=== PATIENT | male | born 1935 | race Caucasian/White ===

== ENCOUNTER 2017-04-04 20:48 | Emergency (ER) | payer MEDICARE, OTHER ==
[2017-04-04] MEDS ORDERED: ACETAMINOPHEN TAB 325 MG TAB PO STA (21:28)
--- NOTE | 2017-04-04 21:28 | ED ---
Lower Extremity Injury HPI - General Chief Complaint: Extremity Injury, Lower Stated Complaint: Back/Groin Pain Time Seen by Provider: 04/04/17 20:51 Source: patient Mode of arrival: EMS Limitations: no limitations - History of Present Illness Initial Comments: Shouldn't is an 81-year-old man presenting to be evaluated for 2 days of right hip/groin pain. The patient indicates the right groin area and states that it came on yesterday in the morning. He noticed it when he was trying to walk around the house. The pain hurts mainly when he tries to lift his right leg. If he is sitting still, particularly when he is lying on on the stretcher he has no pain. He indicates the pain is moderate when he does try to move his right leg. He is declining analgesics at the moment. The patient furthermore denies any weakness, numbness of the leg. He has not had fever or chills, change in urination or bowel movements. No abdominal pain. He has had some recent sciatic pain over the past month but states that this is definitely different. MD Complaint: hip injury Onset/Timin -: days(s) Injury: Hip: Right Type of Injury: unknown Place: home Severity: moderate Improves With: rest Worsens With: movement - Related Data Home Medications Medication Instructions Recorded Confirmed Carvedilol 25 mg PO BID 06/19/15 04/04/17 Ferrous Sulfate [Iron (65 MG 325 mg PO DAILY 06/19/15 04/04/17 Elemental)] Morphine Sulfate ER [Ms Contin] 60 mg PO BID 06/19/15 04/04/17 oxyCODONE HCL 15 mg PO TID 06/19/15 04/04/17 Spironolactone [Aldactone] 25 mg PO DAILY 02/03/16 04/04/17 Multivitamins, Thera [Multivitamin 1 tab PO DAILY 04/13/16 04/04/17 (formulary)] Stool Softner 1 tab PO DAILY 04/16/16 04/04/17 Warfarin [Coumadin] 7.5 mg PO MOTUWETHFRSA 04/16/16 04/04/17 Lisinopril [Zestril] 10 mg PO BID 04/23/16 04/04/17 ALPRAZolam [Xanax] 0.5 mg PO HS 07/28/16 04/04/17 Citalopram Hydrobromide [CeleXA] 10 mg PO DAILY 07/28/16 04/04/17 LORazepam [Ativan] 0.5 mg PO HS 07/28/16 04/04/17 Pantoprazole [Protonix] 40 mg PO QAM 07/28/16 04/04/17 Pravastatin Sodium [Pravachol] 20 mg PO HS 07/28/16 04/04/17 Sucralfate [Carafate] 1 gm PO BID-W/MEALS 07/28/16 04/04/17 Ubidecarenone [Co Q-10] 200 mg PO DAILY 07/28/16 04/04/17 traZODone HCL 100 mg PO HS 07/28/16 04/04/17 Previous Rx's Medication Instructions Recorded Furosemide [Lasix] 40 mg PO DAILY #30 tab 06/21/15 Ibuprofen [Motrin] 600 mg PO Q8HR PRN #20 tab 04/04/17 Allergies Allergy/AdvReac Type Severity Reaction Status Date / Time No Known Allergies Allergy Verified 07/28/16 13:25 Review of Systems ROS Statement: Those systems with pertinent positive or pertinent negative responses have been documented in the HPI. ROS Other: All systems not noted in ROS Statement are negative. Constitutional: Denies: fever, chills, weakness Respiratory: Denies: cough, dyspnea Cardiovascular: Denies: chest pain Gastrointestinal: Denies: abdominal pain, diarrhea, constipation Genitourinary: Denies: dysuria, hematuria, testicular pain Musculoskeletal: Reports: as per HPI, back pain, myalgia (Regular) Skin: Denies: rash, lesions Neurological: Denies: headache, weakness, numbness, paresthesias Past Medical History Past Medical History: Coronary Artery Disease (CAD), Chest Pain / Angina, Heart Failure, Deep Vein Thrombosis (DVT), Hyperlipidemia, Hypertension, Myocardial Infarction (NH), Prostate Disorder Additional Past Medical History / Comment(s): hx PROSTATE CANCER, DVT left leg 2006, Last Myocardial Infarction Date:: 2005? History of Any Multi-Drug Resistant Organisms: None Reported Past Surgical History: Appendectomy, Cardiac Valve Replacement, Cholecystectomy , Heart Catheterization, Heart Catheterization With Stent, Hernia Repair, Pacemaker, Prostate Surgery Additional Past Surgical History / Comment(s): aortic valve replacement, bilateral cataracts removal, penile implant x2 Past Anesthesia/Blood Transfusion Reactions: Previous Problems w/ Anesthesia Additional Past Anesthesia/Blood Transfusion Reaction / Comment(s): "one time BP dropped too low" Date of Last Stent Placement:: 2005 Type of Cardiac Device: Permanent Pacemaker Device Placement Date:: approx 12 yrs ago Past Psychological History: Anxiety Smoking Status: Former smoker - Past Family History Brother(s) Family Medical History: Cancer Sister(s) Family Medical History: Cancer Father Family Medical History: Cancer Additional Family Medical History / Comment(s): HEART PROLEMS AND VASUCLAR PROBLEMS HAD CABG Mother Family Medical History: Myocardial Infarction (NH) Additional Family Medical History / Comment(s): HAD OPEN HEART SX. General Exam Limitations: no limitations General appearance: alert, in no apparent distress Respiratory exam: Present: normal lung sounds bilaterally. Absent: respiratory distress, wheezes, rales, rhonchi Cardiovascular Exam: Present: regular rate, normal rhythm, normal heart sounds. Absent: systolic murmur, diastolic murmur, rubs, gallop GI/Abdominal exam: Present: soft. Absent: distended, tenderness, guarding, rebound Extremities exam: Present: normal inspection, full ROM, normal capillary refill , other (Patient has tenderness to the adductor muscles in the right groin when he attempts to flex the right hip or adduct the right leg. Otherwise no tenderness.). Absent: pedal edema, calf tenderness Back exam: Present: normal inspection. Absent: CVA tenderness (R), CVA tenderness (L) Neurological exam: Present: alert. Absent: motor sensory deficit Skin exam: Present: warm, dry, intact, normal color. Absent: rash Course Vital Signs 04/04/17 04/04/17 20:54 23:23 Temperature 101.5 F H 99.8 F H Pulse Rate 60 89 Respiratory 20 18 Rate Blood Pressure 129/61 145/85 O2 Sat by Pulse 92 L 98 Oximetry Medical Decision Making - Medical Decision Making 81-year-old man presents with right groin pain consistent on the history and physical with a right groin strain. Triage is found to have fever though he has not had symptoms of infection. Patient chest x-ray and urine negative. Discussed further testing to find etiology of fever but patient is declining blood draw. Patient will return if there is any worsening or if there is no improvement. Examination of the patient's right groin and hip does not reveal any evidence of infectious etiology there. Discussed appropriate follow-up and return parameters. - Lab Data Lab Results 04/04/17 Range/Units 21:39 Urine Color Yellow Urine Appearance Clear (Clear) Urine pH 6.5 (5.0-8.0) Ur Specific [place] 1.010 (1.001-1.035) Urine Protein Trace H (Negative) Urine Glucose (UA) Negative (Negative) Urine Ketones Negative (Negative) Urine Blood Negative (Negative) Urine Nitrite Negative (Negative) Urine Bilirubin Negative (Negative) Urine Urobilinogen <2.0 (<2.0) mg/dL Ur Leukocyte Esterase Negative (Negative) Disposition Clinical Impression: Groin strain Disposition: HOME SELF-CARE Condition: Fair Instructions: Groin Strain (ED) Prescriptions: Ibuprofen [Motrin] 600 mg PO Q8HR PRN #20 tab PRN Reason: Pain Referrals: Brayden Lundberg MD [Primary Care Provider] - 1-2 days
[2017-04-04 21:52] LABS: Appearance,Urine Clear (Clear); Bilirubin,Urine Negative (Negative); Glucose,Urine (UA) Negative (Negative); Ketones,Urine Negative (Negative); Leukocyte Esterase,Urine Negative (Negative); Nitrite,Urine Negative (Negative); PH, Urine 6.5 (5.0-8.0); Protein,Urine Trace (Negative); UA Billing (MACRO vs. MICRO) CHEM; Urobilinogen,Urine <2.0 mg/dL (<2.0)
--- NOTE | 2017-04-04 22:33 | XR ---
EXAM: XR Right Hip With Pelvis When Performed, 2 or 3 Views CLINICAL HISTORY: Reason: Pain TECHNIQUE: Two or three views of the right hip, with pelvis when performed. COMPARISON: No relevant prior studies available. FINDINGS: Bones/joints: No evidence of acute fracture or dislocation. Mild/moderate narrowing of both femoroacetabular joints with bony productive changes consistent with osteoarthropathy. Soft tissues: Surgical clips are seen within the pelvis; correlate with patient's surgical history. Moderate/severe atherosclerotic vascular calcifications involving bilateral femoral arteries and their branches. IMPRESSION: No radiographic evidence of acute osseous injury. Mild/moderate osteoarthropathy, as above.
--- NOTE | 2017-04-04 22:39 | XR ---
EXAM: XR Chest, 2 Views CLINICAL HISTORY: Reason: fever TECHNIQUE: Frontal and lateral views of the chest. COMPARISON: 04/28/2016 FINDINGS: Lungs: Bilateral perihilar infiltrates, as seen on prior study, suggesting mild CHF. Hyperinflation of both lungs suggesting COPD. Pleural space: Unremarkable. No pneumothorax. Heart: Heart remains mildly enlarged. Aortic and mitral valve replacement suggested; correlate with patient's surgical history. Left sided pacemaker is again seen with lead tip overlying the right ventricle. Mediastinum: Unchanged. Bones/joints: Median sternotomy wires are again present. IMPRESSION: Mild CHF, slight interval worsening since prior study suggested. Evidence of COPD. Heart remains mildly enlarged.
[2017-04-04] MEDS ORDERED: IBUPROFEN 600 MG TAB PO STA (22:51)
[2017-04-04 23:24] VITALS: BP 145/85; PULSE 89; RESP 18; TEMP 99.8
== END 2017-04-04 23:24 | disposition home or self-care (01) ==
LOC: EC 20:48
DX: S76.911A Strain of unspecified muscles, fascia and tendons at thigh level, right thigh, initial encounter (principal); F41.9 Anxiety disorder, unspecified; I11.0 Hypertensive heart disease with heart failure; I50.9 Heart failure, unspecified; I25.10 Atherosclerotic heart disease of native coronary artery without angina pectoris; I25.2 Old myocardial infarction; E78.5 Hyperlipidemia, unspecified; Z85.46 Personal history of malignant neoplasm of prostate; Z87.891 Personal history of nicotine dependence; Z86.718 Personal history of other venous thrombosis and embolism; Z79.01 Long term (current) use of anticoagulants; Z79.891 Long term (current) use of opiate analgesic; Z79.899 Other long term (current) drug therapy; X50.1XXA Overexertion from prolonged static or awkward postures, initial encounter
CPT/HCPCS: 71020; 73502; 81003; 99284

== ENCOUNTER 2017-11-19 23:25 | Inpatient (IN) | payer MEDICARE ==
[2017-11-19] MEDS ORDERED: IPRATROPIUM-ALBUTEROL 3 ML NEB INHALATION STA (23:52)
[2017-11-19] MEDS ORDERED: methylPREDNISolone SOD SUCCI 125 MG/2 ML VIAL IV STA (23:52)
--- NOTE | 2017-11-20 00:11 | ED ---
General Adult HPI - General Source: patient, RN notes reviewed Mode of arrival: ambulatory Limitations: no limitations <Darwin Bill - Last Filed: 11/20/17 02:24> <Mainor Saba - Last Filed: 11/20/17 02:34> - General Chief complaint: Upper Respiratory Infection Stated complaint: SOB Time Seen by Provider: 11/19/17 23:45 - History of Present Illness Initial comments: Patient's an 81-year-old male presented to the emergency room today with a chief complaint of increased shortness of breath. She does admit that he was seen at [facility] diagnosed with a pneumonia. He was started on antibiotics. States was not getting any better at home. He states he worries and felt that he was not improving so he came here to the emergency room tonight. He does admit that he started one dose of the antibiotic. Patient omits that he uses oxygen at home as needed has felt increased shortness breath. He denies any other complaints or symptoms. Patient denies any recent fever, chills, chest pain, back pain, abdominal pain, nausea or vomiting, numbness or tingling, dysuria or hematuria, constipation or diarrhea, headaches or visual changes, or any other complaints. (Darwin Bill) - Related Data Home Medications Medication Instructions Recorded Confirmed Carvedilol 25 mg PO BID 06/19/15 06/26/17 Ferrous Sulfate [Iron (65 MG 325 mg PO DAILY 06/19/15 06/26/17 Elemental)] Morphine Sulfate ER [Ms Contin] 60 mg PO BID 06/19/15 06/26/17 oxyCODONE HCL 15 mg PO TID 06/19/15 06/26/17 Spironolactone [Aldactone] 25 mg PO DAILY 02/03/16 06/26/17 Multivitamins, Thera [Multivitamin 1 tab PO DAILY 04/13/16 06/26/17 (formulary)] Warfarin [Coumadin] 7.5 mg PO MOTUWETHFRSA 04/16/16 06/26/17 Lisinopril [Zestril] 2.5 mg PO BID 04/23/16 06/26/17 ALPRAZolam [Xanax] 0.5 mg PO HS 07/28/16 06/26/17 Citalopram Hydrobromide [CeleXA] 10 mg PO DAILY 07/28/16 06/26/17 LORazepam [Ativan] 0.5 mg PO HS 07/28/16 06/26/17 Pantoprazole [Protonix] 40 mg PO QAM 07/28/16 06/26/17 Pravastatin Sodium [Pravachol] 20 mg PO HS 07/28/16 06/26/17 Sucralfate [Carafate] 1 gm PO BID-W/MEALS 07/28/16 06/26/17 Ubidecarenone [Co Q-10] 200 mg PO DAILY 07/28/16 06/26/17 traZODone HCL 100 mg PO HS 07/28/16 06/26/17 Previous Rx's Medication Instructions Recorded Furosemide [Lasix] 40 mg PO DAILY #30 tab 06/21/15 Ibuprofen [Motrin] 600 mg PO Q8HR PRN #20 tab 04/04/17 Allergies Allergy/AdvReac Type Severity Reaction Status Date / Time No Known Allergies Allergy Verified 11/19/17 23:30 Review of Systems ROS Other: All systems not noted in ROS Statement are negative. <Darwin Bill - Last Filed: 11/20/17 02:24> ROS Other: All systems not noted in ROS Statement are negative. <Mainor Saba - Last Filed: 11/20/17 02:34> ROS Statement: Those systems with pertinent positive or pertinent negative responses have been documented in the HPI. Past Medical History Past Medical History: Coronary Artery Disease (CAD), Chest Pain / Angina, Heart Failure, Deep Vein Thrombosis (DVT), Hyperlipidemia, Hypertension, Myocardial Infarction (MD), Prostate Disorder Additional Past Medical History / Comment(s): hx PROSTATE CANCER, DVT left leg 2006, sepsis, pleural effusions Last Myocardial Infarction Date:: 2005? History of Any Multi-Drug Resistant Organisms: None Reported Past Surgical History: Appendectomy, Cardiac Valve Replacement, Cholecystectomy , Heart Catheterization, Heart Catheterization With Stent, Hernia Repair, Pacemaker, Prostate Surgery Additional Past Surgical History / Comment(s): aortic valve replacement, bilateral cataracts removal, penile implant x2, thoracentesis Past Anesthesia/Blood Transfusion Reactions: Previous Problems w/ Anesthesia Additional Past Anesthesia/Blood Transfusion Reaction / Comment(s): "one time BP dropped too low" Date of Last Stent Placement:: 2005 Type of Cardiac Device: Permanent Pacemaker Device Placement Date:: approx 12 yrs ago Past Psychological History: Anxiety Smoking Status: Former smoker Past Alcohol Use History: None Reported Past Drug Use History: None Reported - Past Family History Brother(s) Family Medical History: Cancer Sister(s) Family Medical History: Cancer Father Family Medical History: Cancer Additional Family Medical History / Comment(s): HEART PROLEMS AND VASUCLAR PROBLEMS HAD CABG Mother Family Medical History: Myocardial Infarction (MD) Additional Family Medical History / Comment(s): HAD OPEN HEART SX. <Darwin Bill - Last Filed: 11/20/17 02:24> General Exam Limitations: no limitations <Darwin Bill - Last Filed: 11/20/17 02:24> <Mainor Saba - Last Filed: 11/20/17 02:34> - General Exam Comments Initial Comments: General: The patient is awake and alert, in no distress, and does not appear acutely ill. Eye: Pupils are equal, round and reactive to light, extra-ocular movements are intact. No nystagmus. There is normal conjunctiva bilaterally. No signs of icterus. Ears, nose, mouth and throat: There are moist mucous membranes and no oral lesions. Neck: The neck is supple, there is no tenderness or JVD. Cardiovascular: There is a regular rate and rhythm. No murmur, rub or gallop is appreciated. Respiratory: Bilateral expiratory wheeze. respirations are non-labored, breath sounds are equal. No stridor, rales, or rhonchi. Musculoskeletal: Normal ROM, no tenderness. Strength 5/5. Sensation intact. Pulses equal bilaterally 2+. Neurological: A&O x 3. CN II-XII intact, There are no obvious motor or sensory deficits. Coordination appears grossly intact. Speech is normal. Skin: Skin is warm and dry and no rashes or lesions are noted. Psychiatric: Cooperative, appropriate mood & affect, normal judgment. (Darwin Bill) Vital Signs 11/19/17 11/19/17 11/20/17 23:27 23:43 00:37 Temperature 97.3 F L Pulse Rate 67 60 Respiratory 18 20 Rate Blood Pressure 150/62 O2 Sat by Pulse 91 L Oximetry 11/20/17 00:47 Temperature Pulse Rate 61 Respiratory Rate Blood Pressure O2 Sat by Pulse Oximetry EKG Findings - EKG Comments: EKG Findings:: EKG performed that 0120: Shows an electronically paced rhythm at 60 bpm. QRS is 160. QT/QTC 542/542. No acute ST changes. <Darwin Bill - Last Filed: 11/20/17 02:24> Medical Decision Making - Lab Data Result diagrams: 11/20/17 01:16 11/20/17 01:16 <Darwin Bill - Last Filed: 11/20/17 02:24> - Lab Data Result diagrams: 11/20/17 01:16 11/20/17 01:16 <Mainor Saba - Last Filed: 11/20/17 02:34> - Medical Decision Making Patient's x-ray reviewed showing no sign of pneumonia at this time. Does show evidence for CHF. His BNP greater than 5000. Patient started on Lasix 40 mg IV. Patient resting comfortably at this time will be admitted also serial enzymes. EKG showing no acute changes. (Darwin Bill) Patient reevaluated by myself, Dr. Saba. Patient resting comfortably in bed. Patient updated on results and plan. Chest x-ray and lab results were consistent with CHF. Case was discussed in detail with Dr. Harris, who will admit for hospital call. Cardiology will be consult. (Mainor Saba) - Lab Data Lab Results 11/20/17 11/20/17 11/20/17 Range/Units 01:16 01:16 01:16 WBC 6.8 (3.8-10.6) k/uL RBC 3.21 L (4.30-5.90) m/uL Hgb 10.7 L (13.0-17.5) gm/dL Hct 30.3 L (39.0-53.0) % MCV 94.6 (80.0-100.0) fL MCH 33.2 (25.0-35.0) pg MCHC 35.1 (31.0-37.0) g/dL RDW 14.2 (11.5-15.5) % Plt Count 197 (150-450) k/uL Neutrophils % 67 % Lymphocytes % 20 % Monocytes % 8 % Eosinophils % 2 % Basophils % 0 % Neutrophils # 4.6 (1.3-7.7) k/uL Lymphocytes # 1.3 (1.0-4.8) k/uL Monocytes # 0.5 (0-1.0) k/uL Eosinophils # 0.1 (0-0.7) k/uL Basophils # 0.0 (0-0.2) k/uL PT (9.0-12.0) sec INR (<1.2) APTT (22.0-30.0) sec Sodium 135 L (137-145) mmol/L Potassium 4.1 (3.5-5.1) mmol/L Chloride 97 L (98-107) mmol/L Carbon Dioxide 27 (22-30) mmol/L Anion Gap 11 mmol/L BUN 26 H (9-20) mg/dL Creatinine 0.90 (0.66-1.25) mg/dL Est GFR (CKD-EPI)AfAm >90 (>60 ml/min/1.73 sqM) Est GFR (CKD-EPI)NonAf 80 (>60 ml/min/1.73 sqM) Glucose 85 (74-99) mg/dL Calcium 8.7 (8.4-10.2) mg/dL Magnesium 1.9 (1.6-2.3) mg/dL Total Bilirubin 0.6 (0.2-1.3) mg/dL AST 38 (17-59) U/L ALT 30 (21-72) U/L Alkaline Phosphatase 97 (38-126) U/L Total Creatine Kinase 49 L (55-170) U/L CK-MB (CK-2) 0.7 (0.0-2.4) ng/mL CK-MB (CK-2) Rel Index 1.4 Troponin I 0.015 (0.000-0.034) ng/mL NT-Pro-B Natriuret Pep pg/mL Total Protein 6.6 (6.3-8.2) g/dL Albumin 3.4 L (3.5-5.0) g/dL 11/20/17 11/20/17 Range/Units 01:16 01:16 WBC (3.8-10.6) k/uL RBC (4.30-5.90) m/uL Hgb (13.0-17.5) gm/dL Hct (39.0-53.0) % MCV (80.0-100.0) fL MCH (25.0-35.0) pg MCHC (31.0-37.0) g/dL RDW (11.5-15.5) % Plt Count (150-450) k/uL Neutrophils % % Lymphocytes % % Monocytes % % Eosinophils % % Basophils % % Neutrophils # (1.3-7.7) k/uL Lymphocytes # (1.0-4.8) k/uL Monocytes # (0-1.0) k/uL Eosinophils # (0-0.7) k/uL Basophils # (0-0.2) k/uL PT 27.0 H (9.0-12.0) sec INR 3.0 H (<1.2) APTT 31.1 H (22.0-30.0) sec Sodium (137-145) mmol/L Potassium (3.5-5.1) mmol/L Chloride (98-107) mmol/L Carbon Dioxide (22-30) mmol/L Anion Gap mmol/L BUN (9-20) mg/dL Creatinine (0.66-1.25) mg/dL Est GFR (CKD-EPI)AfAm (>60 ml/min/1.73 sqM) Est GFR (CKD-EPI)NonAf (>60 ml/min/1.73 sqM) Glucose (74-99) mg/dL Calcium (8.4-10.2) mg/dL Magnesium (1.6-2.3) mg/dL Total Bilirubin (0.2-1.3) mg/dL AST (17-59) U/L ALT (21-72) U/L Alkaline Phosphatase (38-126) U/L Total Creatine Kinase (55-170) U/L CK-MB (CK-2) (0.0-2.4) ng/mL CK-MB (CK-2) Rel Index Troponin I (0.000-0.034) ng/mL NT-Pro-B Natriuret Pep 5710 pg/mL Total Protein (6.3-8.2) g/dL Albumin (3.5-5.0) g/dL Disposition Time of Disposition: 02:25 <Darwin Bill - Last Filed: 11/20/17 02:24> <Mainor Saba - Last Filed: 11/20/17 02:34> Clinical Impression: CHF exacerbation Disposition: ADMITTED IP TO THIS HOSP Condition: Good Referrals: Brayden Lundberg MD [Primary Care Provider] - 1-2 days
[2017-11-20 01:25] LABS: Basophils % (A) 0 %; Eosinophils # (A) 0.1 k/uL (0-0.7); Eosinophils % (A) 2 %; HCT 30.3 % (39.0-53.0); HGB 10.7 gm/dL (13.0-17.5); Lymphocytes # (A) 1.3 k/uL (1.0-4.8); Lymphocytes % (A) 20 %; MCH 33.2 pg (25.0-35.0); MCHC 35.1 g/dL (31.0-37.0); MCV 94.6 fL (80.0-100.0); Monocytes # (A) 0.5 k/uL (0-1.0); Monocytes % (A) 8 %; Neutrophils # (A) 4.6 k/uL (1.3-7.7); Neutrophils % (A) 67 %; Platelet Count 197 k/uL (150-450); RBC 3.21 m/uL (4.30-5.90); RDW 14.2 % (11.5-15.5); WBC 6.8 k/uL (3.8-10.6)
--- NOTE | 2017-11-20 01:33 | XR ---
EXAMINATION TYPE: XR chest 2V DATE OF EXAM: 11/20/2017 COMPARISON: 08/20/2017 HISTORY: Difficulty breathing TECHNIQUE: Frontal and lateral views of the chest are obtained. FINDINGS: Heart is enlarged. There is bony vascular congestion. There is blunting of right costophre dionisio angle. There is some fluid in the major fissure. There is a left axillary pacemaker with the lead tip over the right ventricle. There are sternal wires. Bony thorax is intact. IMPRESSION: Congestive heart failure with right pleural effusion. This appears slightly worse than o ld exam.
[2017-11-20 01:38] LABS: ALT 30 U/L (21-72); AST 38 U/L (17-59); Albumin 3.4 g/dL (3.5-5.0); Alkaline Phosphatase 97 U/L (38-126); Anion Gap 11 mmol/L; Blood Urea Nitrogen 26 mg/dL (9-20); Calcium 8.7 mg/dL (8.4-10.2); Carbon Dioxide 27 mmol/L (22-30); Chloride 97 mmol/L (98-107); Glucose 85 mg/dL (74-99); Magnesium 1.9 mg/dL (1.6-2.3); Potassium 4.1 mmol/L (3.5-5.1); Sodium 135 mmol/L (137-145); Total Bilirubin 0.6 mg/dL (0.2-1.3); Total Protein 6.6 g/dL (6.3-8.2)
[2017-11-20 01:39] LABS: Partial Thromboplastin Time 31.1 sec (22.0-30.0)
[2017-11-20 02:02] LABS: Creatine Kinase MB 0.7 ng/mL (0.0-2.4); Troponin I 0.015 ng/mL (0.000-0.034)
[2017-11-20] MEDS ORDERED: SODIUM CHLORIDE 0.9% 1,000 ML IV ONE (02:19)
[2017-11-20] MEDS ORDERED: LORazepam 1 MG TAB PO STA (04:38)
[2017-11-20] MEDS ORDERED: WARFARIN 7.5 MG TAB PO SCH ×2 (05:30→07:25)
--- NOTE | 2017-11-20 05:32 | P.HPIM ---
History of Present Illness H&P Date: 11/20/17 Chief Complaint: Progressive shortness of breath 81-year-old male with past medical history significant for moderate left ventricular dysfunction, history of DVT, history of CAD. Presented due to progressive exertional dyspnea at times with very mild exertion and even at rest. Patient has been in [place] for the past few months had a right-sided thoracentesis 2 L removed and since then has been on diuretics. Patient noncompliant with his home medications. Patient admits to orthopnea and paroxysmal maternal dyspnea, he also noticed bilateral leg swelling. He denies any weight gain and actually reports some weight loss due to poor appetite, he reports losing 5 pounds over the past 3 months. Patient denies any chest pain dizziness or lightheadedness. He uses home oxygen sporadically as needed. He recently came back from [place] just a day or 2 ago went to a different facility diagnosed with pneumonia was given some Z-Umer however he noticed no improvement in symptoms and decided to come to our hospital. Patient has established relationship with outpatient cardiology Dr. Huerta. Patient denies any symptoms suggestive of upper respiratory infection. He reports no chest pain except for shortness of breath associated with coughing and wheezing coughing productive of whitish yellowish sputum. Patient's condition kept on worsening to the point that he sleeps sitting up in chair due to severe orthopnea. Patient seems to be noncompliant with his Lasix and other cardiac meds, however he is compliant with Coumadin due to having history of bioprosthetic heart valve back in 2011. Patient denies any GI bleeding or melena, he had a colonoscopy done 2010 and he reports that was normal. Currently patient was seen on the medical floor sleeping in the chair seems comfortable denies any chest pain or shortness of breath while resting however he will feel short of breath if he walks the bathroom Review of Systems Constitutional: Patient denies fever, denies chills, denies night sweating, reports weight loss of 5 pounds over the past 3 months Eyes: Patient denies visual changes, denies eye pain ENT: Patient denies ear pain, denies rhinorrhea, denies sore throat Cardiovascular: As per HPI Respiratory:Patient as per HPI Gastrointestinal: Patient denies diarrhea, denies constipation, denies nausea , denies vomiting, denies abdominal pain Genitourinary: Patient denies dysuria, denies hematuria, denies changes in urinary habits, denies genital lesions Musculoskeletal: Patient denies muscle pain, denies joint pain Psychiatric: Patient denies changes in mood or memory, denies suicidal ideation, denies anxiety Endocrine: Patient denies heat intolerance, denies cold intolerance, denies excessive thirst, denies polyuria Neurological: Patient denies focal neurologic deficits, denies weakness, denies numbness, denies tingling Hem/Lymphatic: Patient denies bleeding tendency, denies bruising, denies swollen lymph glands Allergic/Immun: Patient denies recent allergic reactions Skin: Patient denies rashes, denies pruritis, denies ulcers Past Medical History Past Medical History: Coronary Artery Disease (CAD), Chest Pain / Angina, Heart Failure, Deep Vein Thrombosis (DVT), Hyperlipidemia, Hypertension, Myocardial Infarction (ND), Prostate Disorder Additional Past Medical History / Comment(s): hx PROSTATE CANCER, DVT left leg 2006, sepsis, pleural effusions, blood infections last one aug 2017, wears home oxygen on and off during day 2 liters Last Myocardial Infarction Date:: 2005? History of Any Multi-Drug Resistant Organisms: None Reported Past Surgical History: Appendectomy, Cardiac Valve Replacement, Cholecystectomy , Heart Catheterization, Heart Catheterization With Stent, Hernia Repair, Pacemaker, Prostate Surgery Additional Past Surgical History / Comment(s): aortic valve replacement, bilateral cataracts removal, penile implant x2, thoracentesis last one aug 2017 Past Anesthesia/Blood Transfusion Reactions: Previous Problems w/ Anesthesia Additional Past Anesthesia/Blood Transfusion Reaction / Comment(s): "one time BP dropped too low" Date of Last Stent Placement:: 2005 Type of Cardiac Device: Permanent Pacemaker Device Placement Date:: approx 12 yrs ago Past Psychological History: Anxiety Smoking Status: Former smoker Past Alcohol Use History: None Reported Additional Past Alcohol Use History / Comment(s): STARTED SMOKING AT AGE 19, SMOKED 1 PPD, QUIT 1962 Past Drug Use History: None Reported - Past Family History Brother(s) Family Medical History: Cancer Sister(s) Family Medical History: Cancer Father Family Medical History: Cancer Additional Family Medical History / Comment(s): HEART PROLEMS AND VASUCLAR PROBLEMS HAD CABG Mother Family Medical History: Myocardial Infarction (ND) Additional Family Medical History / Comment(s): HAD OPEN HEART SX. Medications and Allergies Home Medications Medication Instructions Recorded Confirmed Type Carvedilol 25 mg PO BID 06/19/15 11/20/17 History Ferrous Sulfate [Iron (65 MG 325 mg PO DAILY 06/19/15 11/20/17 History Elemental)] Morphine Sulfate ER [Ms Contin] 30 mg PO BID 06/19/15 11/20/17 History oxyCODONE HCL 15 mg PO TID 06/19/15 11/20/17 History Furosemide [Lasix] 40 mg PO DAILY #30 tab 06/21/15 11/20/17 Rx Multivitamins, Thera [Multivitamin 1 tab PO DAILY 04/13/16 11/20/17 History (formulary)] Warfarin [Coumadin] 7.5 mg PO [id number] 04/16/16 11/20/17 History Lisinopril [Zestril] 2.5 mg PO BID 04/23/16 11/20/17 History Citalopram Hydrobromide [CeleXA] 10 mg PO DAILY 07/28/16 11/20/17 History LORazepam [Ativan] 1 mg PO BID 07/28/16 11/20/17 History Pantoprazole [Protonix] 40 mg PO QAM 07/28/16 11/20/17 History Pravastatin Sodium [Pravachol] 20 mg PO HS 07/28/16 11/20/17 History Sucralfate [Carafate] 1 gm PO BID-W/MEALS 07/28/16 11/20/17 History Ubidecarenone [Co Q-10] 200 mg PO DAILY 07/28/16 11/20/17 History traZODone HCL 100 mg PO HS 07/28/16 11/20/17 History Allergies Allergy/AdvReac Type Severity Reaction Status Date / Time No Known Allergies Allergy Verified 11/19/17 23:30 Physical Exam Vitals: Vital Signs Temp Pulse Pulse Resp BP BP Pulse Ox 11/20/17 04:14 98.2 F 56 L 18 184/90 98 11/20/17 03:21 97.2 F L 60 18 168/81 97 11/20/17 00:47 61 11/20/17 00:37 60 11/19/17 23:43 20 11/19/17 23:27 97.3 F L 67 18 150/62 91 L Intake and Output 11/19/17 11/19/17 11/20/17 14:59 22:59 06:59 Other: Voiding Method Toilet # Voids 1 Weight 74.191 kg Constitutional: No acute distress, conversant, pleasant Eyes: Anicteric sclerae, moist conjunctiva, no lid-lag Pupils equal round reactive to light ENMT: NC/AT Oropharynx clear, no erythema, exudates Neck: Supple, FROM, no masses, or JVD No carotid bruits No thyromegaly Lungs: Decreased breath sounds bilateral lung basis, diffuse wheezing admitted and lower lungs bilaterally, rhonchi and inspiratory rales at bilateral lung basis Normal respiratory effort, no accessory muscle use Cardiovascular: Heart regular in rate and rhythm, No murmurs, gallops, or rubs +2 peripheral edema Abdominal: Soft Nontender, no guarding, rebound or rigidity Abdomen moving with respiration Normoactive bowel sounds No hepatomegaly, No splenomegaly No palpable mass No abdominal wall hernia noted Skin: Normal temperature, tone, texture, turgor No induration No subcutaneous nodules No rash, No ulcers extensive scarring over the medial aspect of the left leg Extremities: No digital cyanosis No clubbing Pedal pulses intact and symmetrical Radial pulses intact and symmetrical No calf tenderness Psychiatric: Alert and oriented to person, place and time Appropriate affect fair judgment Neuro Muscles Strength 4/5 in all 4 extremities Sensation to light touch grossly present throughout Cranial nerves II-XII grossly intact No focal sensory deficits Lymphatics: no palpable cervical or supraclavicular , or inguinal lymph nodes Results CBC & Chem 7: 11/20/17 01:16 11/20/17 01:16 Labs: Abnormal Lab Results - Last 24 Hours (Table) 11/20/17 11/20/17 11/20/17 Range/Units 01:16 01:16 01:16 RBC 3.21 L (4.30-5.90) m/uL Hgb 10.7 L (13.0-17.5) gm/dL Hct 30.3 L (39.0-53.0) % PT (9.0-12.0) sec INR (<1.2) APTT (22.0-30.0) sec Sodium 135 L (137-145) mmol/L Chloride 97 L (98-107) mmol/L BUN 26 H (9-20) mg/dL Total Creatine Kinase 49 L (55-170) U/L Albumin 3.4 L (3.5-5.0) g/dL 11/20/17 Range/Units 01:16 RBC (4.30-5.90) m/uL Hgb (13.0-17.5) gm/dL Hct (39.0-53.0) % PT 27.0 H (9.0-12.0) sec INR 3.0 H (<1.2) APTT 31.1 H (22.0-30.0) sec Sodium (137-145) mmol/L Chloride (98-107) mmol/L BUN (9-20) mg/dL Total Creatine Kinase (55-170) U/L Albumin (3.5-5.0) g/dL Thrombosis Risk Factor Assmnt - Choose All That Apply Any of the Below Risk Factors Present?: Yes Each Factor Represents 1 point: Serious lung disease incl. pneumonia (< 1month) , Swollen legs (current) Other Risk Factors: Yes Each Risk Factor Represents 3 Points: Age 75 years or older, History of DVT/PE Other congenital or acquired thrombophilia - If yes, enter type in comment: No Thrombosis Risk Factor Assessment Total Risk Factor Score: 8 Thrombosis Risk Factor Assessment Level: High Risk Assessment and Plan Assessment: 81-year-old male with past medical history significant for moderate left ventricular dysfunction, history of DVT, history of CAD. Presented due to progressive exertional dyspnea at times with very mild exertion and even at rest. Patient has been in [place] for the past few months had a right-sided thoracentesis 2 L removed and since then has been on diuretics. Patient noncompliant with his home medications. She was cut back from his trip denies any symptoms of upper respiratory infection however he felt a lot of congestion coughing wheezing and shortness of breath. Patient admitted for acute CHF exacerbation and malignant hypertension Plan: #Acute hypoxic respiratory failure secondary pulmonary edema #Acute systolic CHF exacerbation secondary to poor compliance #Malignant hypertension secondary to noncompliance with cardiac meds #History of CAD #Right pleural effusion Resume cardiac meds, Coreg, lisinopril IV Lasix Oxygen through nasal cannula Monitor urine output Daily weight Close monitoring of vital signs, blood pressure is expected started improving after continuing home medications as patient was noncompliant Cardiac diet Fluid restriction #Bioprosthetic heart valve For which he is on Coumadin, the valve was replaced back in 2011 Await cardiology input regarding further recommendations about stopping Coumadin as normally it's only used for the first 3 months after bioprosthetic valve replacement #Mild anemia Patient reported being up-to-date on colonoscopy last one done 2010 reported to be normal Denies any melena or GI bleed Check FOBT #DVT prophylaxis, currently patient is on Coumadin with therapeutic INR Patient has history of one DVT in the past Preformed a thorough record review from recent hospitalization , transesophageal echocardiogram done in 2017 reported moderate LV dysfunction. Surrogate decision-maker: Patient sanjay Bonilla CODE STATUS:*Full code DVT prophylaxis: Currently on Coumadin therapeutic INR Discussed with: Patient, ER, RN Anticipated discharge: 48-[address]: Home A total of 55 minutes was spent on the care of this complex patient more than 50 % of the time was spent in counseling and care coordination.
[2017-11-20] MEDS ORDERED: NALOXONE 0.4 MG/ML 1 ML VIAL IV PRN (06:28)
[2017-11-20] MEDS: LORazepam 1 MG TAB PO SCH ×2 (07:46→18:22)
[2017-11-20] MEDS: PANTOPRAZOLE 40 MG TABLET PO SCH (08:02)
[2017-11-20] MEDS: CITALOPRAM HYDROBROMIDE 10 MG TAB PO SCH (08:03)
[2017-11-20] MEDS: FUROSEMIDE 10 MG/ML 4 ML VIAL IV SCH ×2 (08:03→20:03)
[2017-11-20] MEDS: MORPHINE SULFATE ER 30 MG TABLET PO SCH ×2 (08:03→20:04)
[2017-11-20] MEDS: CARVEDILOL 12.5 MG TAB PO SCH ×2 (08:03→21:00)
[2017-11-20] MEDS: SUCRALFATE 1 GM TAB PO SCH ×2 (08:03→16:05)
[2017-11-20] MEDS ORDERED: LISINOPRIL 2.5 MG TAB PO SCH (09:00)
[2017-11-20] MEDS ORDERED: NON-FORMULARY DRUG (Ubidecarenone [Co Q-10] 200 MG) PO SCH (09:00)
[2017-11-20 09:11] LABS: Creatine Kinase MB 0.8 ng/mL (0.0-2.4); Troponin I 0.02 ng/mL (0.000-0.034)
--- NOTE | 2017-11-20 11:56 | ECHOF ---
Referral Reason:LV function MEASUREMENTS -------- HEIGHT: 175.3 cm WEIGHT: 73.9 kg BP: 111/72 RVIDd: 3.5 cm (< 3.3) IVSd: 1.6 cm (0.6 - 1.1) LVIDd: 4.1 cm (3.9 - 5.3) LVPWd: 1.6 cm (0.6 - 1.1) IVSs: 2.0 cm LVIDs: 3.3 cm LVPWs: 1.9 cm LA Diam: 4.5 cm (2.7 - 3.8) LAESV Index (A-L): 53.99 ml/m Ao Diam: 3.6 cm (2.0 - 3.7) AV Cusp: 2.0 cm (1.5 - 2.6) MV EXCURSION: 19.197 mm (> 18.000) MV EF SLOPE: 68 mm/s (70 - 150) EPSS: 1.1 cm AV maxP.22 mmHg AV meanP.87 mmHg AR PHT: 320 ms RAP: 15.00 mmHg RVSP: 67.90 mmHg FINDINGS -------- This was a technically good study. The left ventricular size is normal. There is mild concentric left ventricular hypertrophy. Overa ll left ventricular systolic function is low-normal with, an EF between 50 - 55 %. The right ventricle is mildly enlarged. LA is severely dilated >40 ml/m2 The right atrium is normal in size. Peak/mean gradient across the Aortic Valve is 18.22mmHg / 7.87mmHg. Normally functioning bioprosthe tic valve. There is mild regurgitation of the bioprosthetic aortic valve. The mitral valve leaflets are mildly thickened. Mild mitral annular calcification present. Mild-t o-moderate mitral regurgitation is present. Mild tricuspid regurgitation present. There is severe pulmonary hypertension. The right ventricul ar systolic pressure, as measured by Doppler, is 67.90mmHg. Trace/mild (physiologic) pulmonic regurgitation. The aortic root size is normal. The inferior vena cava is dilated with no significant inspiratory collapse which is consistent estima fco right atrial pressure of >20 mmHg. There is no pericardial effusion. CONCLUSIONS -------- 1. This was a technically good study. 2. The left ventricular size is normal. 3. There is mild concentric left ventricular hypertrophy. 4. Overall left ventricular systolic function is low-normal with, an EF between 50 - 55 %. 5. The right ventricle is mildly enlarged. 6. LA is severely dilated >40 ml/m2 7. The right atrium is normal in size. 8. Peak/mean gradient across the Aortic Valve is 18.22mmHg / 7.87mmHg. 9. Normally functioning bioprosthetic valve. 10. There is mild regurgitation of the bioprosthetic aortic valve. 11. The mitral valve leaflets are mildly thickened. 12. Mild mitral annular calcification present. 13. [id number] mitral regurgitation is present. 14. Mild tricuspid regurgitation present. 15. There is severe pulmonary hypertension. 16. The right ventricular systolic pressure, as measured by Doppler, is 67.90mmHg. 17. Trace/mild (physiologic) pulmonic regurgitation. 18. The aortic root size is normal. 19. The inferior vena cava is dilated with no significant inspiratory collapse which is consistent es timated right atrial pressure of >20 mmHg. 20. There is no pericardial effusion. CURRICULUM ASSISTANT PRINCIPAL: Supriya Palomares RDCS
[2017-11-20 11:57] VITALS: BMI 24.1
[2017-11-20] MEDS ORDERED: hydrALAZINE HCL 20 MG/ML 1 ML VIAL IVP PRN (12:46)
--- NOTE | 2017-11-20 12:50 | P.PN ---
Subjective Progress Note Date: 11/20/17 Principal diagnosis: Shortness of breath Patient is an 81-year-old male with a past medical history of systolic dysfunction, DVT, coronary artery disease, and aortic valve replacement who presented to the emergency department with complaints of shortness of breath. On arrival to the ER he was slightly hypertensive with a blood pressure 150/62. Chest x-ray showed a right-sided pleural effusion. Laboratory analysis was consistent with his chronic anemia and hemoglobin of 10.7. His BUN was slightly elevated at 26. His troponins were negative. He was diagnosed with acute exacerbation of congestive heart failure. He was started on Lasix and his home medications were restarted. He was admitted to the general medical floor for further monitoring and care. He states that he has had recurrent pleural effusions requiring thoracentesis X 5. He states that Lasix has been ineffective. He has even had doses of 220 which have resulted in resolution of his peripheral edema but not the fluid on his lungs. He states his last CAT scan and thoracentesis were performed in August at hospital in [place]. On the morning after admission he still not had significant improvement in his shortness of breath. Patient seen and examined at bedside. He is still having shortness of breath and chest tightness with trying to take a deep breath. He has a nonproductive cough. He denies any nausea, vomiting, diarrhea, or constipation. He states that his legs are always around this swollen. He admits to not taking his medications on a trip back from [place]. Objective - Vital Signs Vital signs: Vital Signs Temp 97.7 F 11/20/17 07:00 Pulse 61 11/20/17 07:00 Resp 16 11/20/17 07:00 BP 181/80 11/20/17 07:00 Pulse Ox 99 11/20/17 07:00 Intake & Output 11/19/17 11/20/17 11/20/17 18:59 06:59 18:59 Intake Total 236 Output Total 435 Balance -199 Weight 74.191 kg 74.191 kg Intake: Oral 236 Output: Urine 435 Other: Voiding Method Toilet Urinal # Voids 1 - Exam General: non toxic, mild distress, appears at stated age Derm: warm, dry Head: atraumatic, normocephalic, symmetric Eyes: EOMI, no lid lag, anicteric sclera Mouth: no lip lesion, mucus membranes moist Cardiovascular: S1-S2 regular with systolic ejection murmur, positive posterior tibial pulse bilateral, Lungs: Absent breath sounds right base, no rhonchi, no rales , no accessory muscle use Abdominal: soft, nontender to palpation, no guarding, no appreciable organomegaly Ext: no gross muscle atrophy, 1+ pitting edema bilateral lower extremities, no contractures Neuro: CN II-XI grossly intact, no focal neuro deficits Psych: Alert, oriented, appropriate affect - Labs CBC & Chem 7: 11/20/17 01:16 11/20/17 01:16 Labs: Abnormal Lab Results - Last 24 Hours (Table) 11/20/17 11/20/17 11/20/17 Range/Units 01:16 01:16 01:16 RBC 3.21 L (4.30-5.90) m/uL Hgb 10.7 L (13.0-17.5) gm/dL Hct 30.3 L (39.0-53.0) % PT (9.0-12.0) sec INR (<1.2) APTT (22.0-30.0) sec Sodium 135 L (137-145) mmol/L Chloride 97 L (98-107) mmol/L BUN 26 H (9-20) mg/dL Total Creatine Kinase 49 L (55-170) U/L Albumin 3.4 L (3.5-5.0) g/dL 11/20/17 Range/Units 01:16 RBC (4.30-5.90) m/uL Hgb (13.0-17.5) gm/dL Hct (39.0-53.0) % PT 27.0 H (9.0-12.0) sec INR 3.0 H (<1.2) APTT 31.1 H (22.0-30.0) sec Sodium (137-145) mmol/L Chloride (98-107) mmol/L BUN (9-20) mg/dL Total Creatine Kinase (55-170) U/L Albumin (3.5-5.0) g/dL Assessment and Plan Assessment: Acute exacerbation of diastolic CHF with ejection fraction 50-55% -Lasix beta muriel, EUGENE inhibitor -Strict I's -Daily weight -Telemetry -Cardiology recommendations appreciated Right-sided pleural effusion, recurrent -Consult pulmonary for possible thoracentesis -Request records from [facility] -Would suggest diagnostic and therapeutic thoracentesis. He did have a thoracentesis performed here in August however I do not see an associated fluid analysis. Hypertensive urgency -Continue with Coreg - lisinopril increased to 10 mg BID -Follow blood pressures -As needed hydralazine for systolic blood pressure greater than 180 Chronic normocytic anemia with hemoglobin 10.7 -Follow intermittent CBC Acute hypoxic respiratory failure secondary to pleural effusion -Continue with diuresis Coronary artery disease -Continue with aspirin, statin History of DVT with Coumadin Coumadin coagulopathy -Coumadin dosing per pharmacy Chronic: Bioprosthetic aortic valve Dyslipidemia Prostate cancer DVT prophylaxis: Coumadin Discussed with: Patient, nursing, Pulmonary DRAINAGE INSPECTOR Anticipated discharge: 48-[address]: home with home health A total of 35 minutes was spent on the care of this complex patient more than 50 % of the time was spent in counseling and care coordination.
[2017-11-20] MEDS ORDERED: RX INFO: IV CONTRAST WAS GIVEN 1 EACH MISC MISCELLANE PRN (13:28)
[2017-11-20] MEDS: MULTIVITAMINS, THERA 1 EACH TAB PO SCH (13:39)
[2017-11-20] MEDS: FERROUS SULFATE 325 MG TAB PO SCH (13:40)
[2017-11-20] MEDS ORDERED: DOCUSATE 100 MG CAP PO PRN (13:58)
[2017-11-20] MEDS ORDERED: ACETAMINOPHEN TAB 325 MG TAB PO PRN (13:58)
[2017-11-20] MEDS ORDERED: CALCIUM CARBONATE 500 MG CHEWABLE PO PRN (13:58)
[2017-11-20] MEDS: ONDANSETRON 4 MG/2 ML VIAL IVP PRN ×2 (14:06→19:25)
[2017-11-20 14:25] LABS: Creatine Kinase 59 U/L (55-170)
--- NOTE | 2017-11-20 14:26 | P.CRDCN ---
History of Present Illness Consult date: 11/20/17 History of present illness: Mr. 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 He follows with Dr. Goetz in the office. We have been asked to see him in consultation secondary to shortness of breath. He states he was recently in [place] where he underwent a thoracentesis in the removed 2 L of fluid per him, the details are unavailable to me. He recently saw his primary care physician and was diagnosed with pneumonia and started on Zithromax. Her shortness of breath has been getting them progressively worse so he decided to present to the hospital. He is seen sitting up in the chair in mild respiratory distress with oxygen infusing. He denies symptoms of chest pain but states that when he takes a deep breath it feels like. Tight in his chest. He does have a dry cough but denies palpitations, dizziness, nausea, vomiting or diaphoresis. He states he has been somewhat noncompliant with his medications over the course of the last few weeks. EKG shows a paced rhythm. No evidence of acute ST or T wave abnormalities noted. Chest x-ray reveals evidence of congestive heart failure with right pleural effusion worse then previous exam in July. Laboratory data reviewed, hemoglobin 10.7, platelets 197, INR 3.0, sodium 135, potassium 4.1, magnesium 1.9, cardiac enzymes negative 2, proBNP 5710. Current cardiac medications include carvedilol 25 mg daily Lasix 40 mg daily, lisinopril 2.5 mg daily, lovastatin 20 mg daily and Coumadin. He is currently receiving IV Lasix 40 mg twice a day as well as IV steroids. Echocardiogram performed on this admission reveals preserved left ventricular systolic function with ejection fraction 50-55%, severely dilated left atrium, aortic valve stenosis with peak/mean gradient 18.22/7.87 mmHg with a normal functioning bioprosthetic valve, mild to moderate MR, severe pulmonary hypertension with an RVSP of 67.90 mmHg. Most recent Lexiscan stress test performed in the office January 2017 reveals no reversible perfusion defects evident with old anteroseptal myocardial infarction Review of Systems At the time my exam: CONSTITUTIONAL: Denies fever. Denies chills. EYES: Denies blurred vision. Denies vision changes. Denies eye pain. EARS, NOSE, MOUTH & THROAT: Denies headache. Denies sore throat. Denies ear pain. CARDIOVASCULAR: Denies chest pain. D complains of shortness of breath. Denies orthopnea. Denies PND. Denies palpitations. RESPIRATORY: Denies cough. GASTROINTESTINAL: Denies abdominal pain. Denies diarrhea. Denies constipation. Denies nausea. Denies vomiting. MUSCULOSKELETAL: Denies myalgias. INTEGUMENTARY: Denies pruitis. Denies rash. NEUROLOGIC: Denies numbness. Denies tingling. Denies weakness. PSYCHIATRIC: Denies anxiety. Denies depression. ENDOCRINE: Denies fatigue. Denies weight change. Denies polydipsia. Denies polyurina. GENITOURINARY: Denies burning, hematuria or urgency with micturation. HEMATOLOGIC: Denies history of anemia. Denies bleeding. Past Medical History Past Medical History: Coronary Artery Disease (CAD), Chest Pain / Angina, Heart Failure, Deep Vein Thrombosis (DVT), Hyperlipidemia, Hypertension, Myocardial Infarction (VT), Prostate Disorder Additional Past Medical History / Comment(s): hx PROSTATE CANCER, DVT left leg 2006, sepsis, pleural effusions, blood infections last one aug 2017, wears home oxygen on and off during day 2 liters Last Myocardial Infarction Date:: 2005? History of Any Multi-Drug Resistant Organisms: None Reported Past Surgical History: Appendectomy, Cardiac Valve Replacement, Cholecystectomy , Heart Catheterization, Heart Catheterization With Stent, Hernia Repair, Pacemaker, Prostate Surgery Additional Past Surgical History / Comment(s): aortic valve replacement, bilateral cataracts removal, penile implant x2, thoracentesis last one aug 2017 Past Anesthesia/Blood Transfusion Reactions: Previous Problems w/ Anesthesia Additional Past Anesthesia/Blood Transfusion Reaction / Comment(s): "one time BP dropped too low" Date of Last Stent Placement:: 2005 Type of Cardiac Device: Permanent Pacemaker Device Placement Date:: approx 12 yrs ago Past Psychological History: Anxiety Smoking Status: Former smoker Past Alcohol Use History: None Reported Additional Past Alcohol Use History / Comment(s): STARTED SMOKING AT AGE 19, SMOKED 1 PPD, QUIT 1962 Past Drug Use History: None Reported - Past Family History Brother(s) Family Medical History: Cancer Sister(s) Family Medical History: Cancer Father Family Medical History: Cancer Additional Family Medical History / Comment(s): HEART PROLEMS AND VASUCLAR PROBLEMS HAD CABG Mother Family Medical History: Myocardial Infarction (VT) Additional Family Medical History / Comment(s): HAD OPEN HEART SX. Medications and Allergies Home Medications Medication Instructions Recorded Confirmed Type Carvedilol 25 mg PO DAILY 06/19/15 11/20/17 History Ferrous Sulfate [Iron (65 MG 325 mg PO DAILY 06/19/15 11/20/17 History Elemental)] oxyCODONE HCL 15 mg PO BID PRN 06/19/15 11/20/17 History Furosemide [Lasix] 40 mg PO DAILY #30 tab 06/21/15 11/20/17 Rx Multivitamins, Thera [Multivitamin 1 tab PO DAILY 04/13/16 11/20/17 History (formulary)] LORazepam [Ativan] 0.5 mg PO BID PRN 07/28/16 11/20/17 History Pantoprazole [Protonix] 40 mg PO QAM 07/28/16 11/20/17 History Sucralfate [Carafate] 1 gm PO BID-W/MEALS 07/28/16 11/20/17 History Ubidecarenone [Co Q-10] 200 mg PO DAILY 07/28/16 11/20/17 History Citalopram Hydrobromide [CeleXA] 20 mg PO DAILY 11/20/17 11/20/17 History Lisinopril [Zestril] 2.5 mg PO DAILY 11/20/17 11/20/17 History Lovastatin [Mevacor] 20 mg PO HS 11/20/17 11/20/17 History Morphine Sulfate ER [Ms Contin 15 mg PO Q12HR PRN 11/20/17 11/20/17 History 15Mg] Morphine Sulfate ER [Ms Contin 30 mg PO Q12HR PRN 11/20/17 11/20/17 History 30Mg] Warfarin [Coumadin] 2 mg PO HS 11/20/17 11/20/17 History Warfarin [Coumadin] 5 mg PO HS 11/20/17 11/20/17 History traZODone HCL 100 mg PO HS 11/20/17 11/20/17 History Allergies Allergy/AdvReac Type Severity Reaction Status Date / Time No Known Allergies Allergy Verified 11/20/17 08:17 Physical Exam Vitals: Vital Signs Temp Pulse Pulse Resp BP BP Pulse Ox 11/20/17 07:00 97.7 F 61 16 181/80 99 11/20/17 04:14 98.2 F 56 L 18 184/90 98 11/20/17 03:21 97.2 F L 60 18 168/81 97 11/20/17 00:47 61 11/20/17 00:37 60 11/19/17 23:43 20 11/19/17 23:27 97.3 F L 67 18 150/62 91 L Intake and Output 11/19/17 11/20/17 11/20/17 22:59 06:59 14:59 Intake Total 361 Output Total 435 Balance -74 Intake: Oral 361 Output: Urine 435 Other: Voiding Method Toilet Urinal # Voids 1 Weight 74.191 kg 74.191 kg Blood pressure 181/30 heart rate 61 afebrile maintaining oxygen saturation on his cannula 2 L. GENERAL: This is a 81-year-old occasion male in no apparent distress at the time of my examination. HEENT: Head is atraumatic, normocephalic. Pupils are equal, round. Sclerae anicteric. Conjunctivae are clear. Mucous membranes of the mouth are moist. Neck is supple. There is no jugular venous distention. No carotid bruit is heard. LUNGS: Significantly diminished at the right base with coarse rhonchi and rales right greater than left. No wheezesi. No chest wall tenderness is noted on palpation or with deep breathing. HEART: Regular rate and rhythm with systolic murmur, no rubs or gallops. S1 and S2 heard. ABDOMEN: Soft, nontender. Bowel sounds are heard. No organomegaly noted. EXTREMITIES: 1+ bilateral lower extremity pitting edema and no calf tenderness noted. VASCULAR: Radial and dorsalis pedis pulses palpated, no evidence of clubbing. NEUROLOGIC: Patient is awake, alert and oriented x3. Results 11/20/17 01:16 11/20/17 01:16 Cardiac Enzymes 11/20/17 11/20/17 11/20/17 Range/Units 01:16 01:16 07:57 AST 38 (17-59) U/L CK-MB (CK-2) 0.7 0.8 (0.0-2.4) ng/mL Troponin I 0.015 0.020 (0.000-0.034) ng/mL Coagulation 11/20/17 Range/Units 01:16 PT 27.0 H (9.0-12.0) sec APTT 31.1 H (22.0-30.0) sec CBC 11/20/17 Range/Units 01:16 WBC 6.8 (3.8-10.6) k/uL RBC 3.21 L (4.30-5.90) m/uL Hgb 10.7 L (13.0-17.5) gm/dL Hct 30.3 L (39.0-53.0) % Plt Count 197 (150-450) k/uL Comprehensive Metabolic Panel 11/20/17 Range/Units 01:16 Sodium 135 L (137-145) mmol/L Potassium 4.1 (3.5-5.1) mmol/L Chloride 97 L (98-107) mmol/L Carbon Dioxide 27 (22-30) mmol/L BUN 26 H (9-20) mg/dL Creatinine 0.90 (0.66-1.25) mg/dL Glucose 85 (74-99) mg/dL Calcium 8.7 (8.4-10.2) mg/dL AST 38 (17-59) U/L ALT 30 (21-72) U/L Alkaline Phosphatase 97 (38-126) U/L Total Protein 6.6 (6.3-8.2) g/dL Albumin 3.4 L (3.5-5.0) g/dL Current Medications Generic Name Dose Route Start Last Admin Trade Name Freq PRN Reason Stop Dose Admin Acetaminophen 650 mg 11/20/17 13:58 Tylenol Tab PO Q6HR PRN Fever and/ or Pain Atorvastatin Calcium 20 mg 11/20/17 21:00 Lipitor PO HS [facility]ES Calcium Carbonate/Glycine 500 mg 11/20/17 13:58 Tums PO TID PRN Heartburn Carvedilol 25 mg 11/20/17 09:00 11/20/17 08:03 Coreg PO 25 mg BID [facility] Administration Citalopram Hydrobromide 10 mg 11/20/17 09:00 11/20/17 08:03 Celexa PO 10 mg DAILY [facility] Administration Docusate Sodium 100 mg 11/20/17 13:58 Colace PO BID PRN Constipation Ferrous Sulfate 325 mg 11/20/17 12:00 11/20/17 13:40 Feosol PO 325 mg DAILY@1200 [facility] Administration Furosemide 40 mg 11/20/17 09:00 11/20/17 08:03 Lasix IV 40 mg Q12HR [facility] Administration Hydralazine HCl 10 mg 11/20/17 12:46 Apresoline IVP Q6HR PRN Blood Pressure - High Sodium Chloride 1,000 mls @ 20 mls/hr 11/20/17 02:19 11/20/17 04:54 Saline 0.9% IV 11/21/17 02:18 Not Given .Q24H ONE Lisinopril 10 mg 11/20/17 21:00 Zestril PO BID [facility] Lorazepam 1 mg 11/20/17 09:00 11/20/17 07:46 Ativan PO Not Given BID [facility] Miscellaneous Information 1 each 11/20/17 10:06 Coumadin Per Pharmacy MISCELLANE DIRECTED PRN Per Protocol Miscellaneous Information 1 each 11/20/17 13:28 Rx Info: Iv Contrast Was Given MISCELLANE 11/22/17 13:28 DAILY PRN Per Protocol Morphine Sulfate 30 mg 11/20/17 09:00 11/20/17 08:03 Ms Contin PO 30 mg BID [facility] Administration Multivitamins 1 each 11/20/17 12:00 11/20/17 13:39 Theragran PO 1 each DAILY@1200 [facility] Administration Naloxone HCl 0.2 mg 11/20/17 06:28 Narcan IV Q2M PRN Opioid Reversal Ondansetron HCl 4 mg 11/20/17 13:58 Zofran IVP Q6H PRN Nausea Oxycodone HCl 15 mg 11/20/17 09:00 11/20/17 13:40 Oxyir PO 15 mg TID [facility] Administration Pantoprazole Sodium 40 mg 11/20/17 07:30 11/20/17 08:02 Protonix PO 40 mg [id number] [facility] Administration Sucralfate 1 gm 11/20/17 07:30 11/20/17 08:03 Carafate PO 1 gm BID-W/MEALS [facility] Administration Trazodone HCl 100 mg 11/20/17 21:00 Desyrel PO HS [facility] Warfarin Sodium 5 mg 11/20/17 18:00 Coumadin PO DAILY@1800 [facility] Warfarin Sodium 2 mg 11/20/17 18:00 Coumadin PO DAILY@1800 [facility] Intake and Output 11/19/17 11/20/17 11/20/17 22:59 06:59 14:59 Intake Total 361 Output Total 435 Balance -74 Intake: Oral 361 Output: Urine 435 Other: Voiding Method Toilet Urinal # Voids 1 Weight 74.191 kg 74.191 kg Patient Weight 11/21/17 06:59 Weight 74.191 kg 11/20/17 01:16 11/20/17 01:16 Assessment and Plan Assessment: ASSESSMENT 1. Acute on chronic diastolic heart failure secondary to severe pulmonary hypertension 2. History of bioprosthetic aortic valve replacement and tricuspid valve repair 3. History of coronary artery disease 4. Paroxysmal atrial fibrillation on long-term anticoagulation with Coumadin 5. Status post permanent pacemaker implantation for sick sinus syndrome. He has been 100% paced since admission. 6. Hypertension, uncontrolled PLAN Agree with gentle diuresis. Strict intake and output with daily weights. Continue with lisinopril, carvedilol and we'll add a small dose of amlodipine for better blood pressure control. Recommend consultation with pulmonary team to evaluate pleural effusion possible thoracentesis if needed. Coumadin may be placed on hold since indicated. Further recommendations to follow. Thank you kindly for this consultation. Nurse Practitioner note has been reviewed, I agree with a documented findings and plan of care. Patient was seen and examined.
[2017-11-20 14:37] LABS: Creatine Kinase MB 0.7 ng/mL (0.0-2.4); Troponin I <0.012 ng/mL (0.000-0.034)
--- NOTE | 2017-11-20 15:31 | P.CNPUL ---
History of Present Illness Consult date: 11/20/17 Reason for consult: pleural effusion History of present illness: 81-year-old male patient, coming in with increased shortness of breath. I was asked to evaluate this patient in regards to a recurrent right-sided pleural effusion. Going back in the records, the patient has developed this pleural effusion back in June 2017. At that time he had a ultrasound-guided thoracentesis by the radiologist here in the hospital and the pleural fluid was not sent for any analysis and based on that the exact cause of the pleural effusion is not known. He is known to have history of coronary artery disease, history of aortic valve stenosis for which the patient underwent an aortic valve replacement with a bioprosthetic valve, chronic exacerbation for which is on anticoagulation, previous history of DVT of the left lower oximetry back in 2006, and history of CHF which is essentially of a right-sided heart failure with significant pulmonary hypertension. The patient was in [place] and he was hospitalized a few months back, specifically in [facility] 2018 for a septic complication. Apparently had possible cultures. A PICC line was inserted and the patient was given prolonged antibiotic course. He was not told to have any valvular infection knowing he was told to have any pneumonia or pleural space infection. During the same hospitalization he had a thoracentesis were more than 1 L of pleural fluid was aspirated from the right lung. He was also placed on diuretics. Currently the patient is having exertional dyspnea, paroxysmal nocturnal dyspnea and some increased edema in lower extremities bilaterally. Chest x-ray was reported to show a small right-sided pleural effusion which is somewhat loculated and for that reason a pulmonary consultation was requested. The patient has no fever. No chills. No night sweats. He is on anticoagulation and the patient's PT/INR is therapeutic at this point. He is resting comfortably on a chair. He is on room air. No other complaints for now. No history of malignancy. Echocardiogram was noted as the patient has an ejection fraction of 50-55%, RV is mildly dilated, and a severely dilated, there is mild- to-moderate mitral regurgitation, severe pulmonary hypertension with estimated right ventricular systolic pressure of 67. No pericardial effusion. Review of Systems Constitutional: Patient denies fever, denies chills, denies night sweating, reports weight loss of 5 pounds over the past 3 months Eyes: Patient denies visual changes, denies eye pain ENT: Patient denies ear pain, denies rhinorrhea, denies sore throat Cardiovascular: As per HPI Respiratory:Patient as per HPI , increased shortness of breath, right-sided pleural effusion Gastrointestinal: Patient denies diarrhea, denies constipation, denies nausea , denies vomiting, denies abdominal pain Genitourinary: Patient denies dysuria, denies hematuria, denies changes in urinary habits, denies genital lesions Musculoskeletal: Patient denies muscle pain, denies joint pain Psychiatric: Patient denies changes in mood or memory, denies suicidal ideation, denies anxiety Endocrine: Patient denies heat intolerance, denies cold intolerance, denies excessive thirst, denies polyuria Neurological: Patient denies focal neurologic deficits, denies weakness, denies numbness, denies tingling Hem/Lymphatic: Patient denies bleeding tendency, denies bruising, denies swollen lymph glands Allergic/Immun: Patient denies recent allergic reactions Skin: Patient denies rashes, denies pruritis, denies ulcers Past Medical History Past Medical History: Coronary Artery Disease (CAD), Chest Pain / Angina, Heart Failure, Deep Vein Thrombosis (DVT), Hyperlipidemia, Hypertension, Myocardial Infarction (OR), Prostate Disorder Additional Past Medical History / Comment(s): Coronary artery disease, aortic valve replacement with a prostatic aortic valve, chronic atrial fibrillation, pulmonary hypertension with evidence of right-sided heart failure, remote history of DVT back in 2006, hypertension, hyperlipidemia, BPH, prostate cancer , recurrent right-sided pleural effusion, sepsis in general 2018, recurrent thoracenteses along the right lung, History of Any Multi-Drug Resistant Organisms: None Reported Past Surgical History: Appendectomy, Cardiac Valve Replacement, Cholecystectomy , Heart Catheterization, Heart Catheterization With Stent, Hernia Repair, Pacemaker, Prostate Surgery Additional Past Surgical History / Comment(s): aortic valve replacement, bilateral cataracts removal, penile implant x2, thoracentesis last one aug 2017 Past Anesthesia/Blood Transfusion Reactions: Previous Problems w/ Anesthesia Additional Past Anesthesia/Blood Transfusion Reaction / Comment(s): "one time BP dropped too low" Date of Last Stent Placement:: 2005 Type of Cardiac Device: Permanent Pacemaker Device Placement Date:: approx 12 yrs ago Past Psychological History: Anxiety Smoking Status: Former smoker Past Alcohol Use History: None Reported Additional Past Alcohol Use History / Comment(s): STARTED SMOKING AT AGE 19, SMOKED 1 PPD, QUIT 1962 Past Drug Use History: None Reported - Past Family History Brother(s) Family Medical History: Cancer Sister(s) Family Medical History: Cancer Father Family Medical History: Cancer Additional Family Medical History / Comment(s): HEART PROLEMS AND VASUCLAR PROBLEMS HAD CABG Mother Family Medical History: Myocardial Infarction (OR) Additional Family Medical History / Comment(s): HAD OPEN HEART SX. Medications and Allergies Home Medications Medication Instructions Recorded Confirmed Type Carvedilol 25 mg PO DAILY 06/19/15 11/20/17 History Ferrous Sulfate [Iron (65 MG 325 mg PO DAILY 06/19/15 11/20/17 History Elemental)] oxyCODONE HCL 15 mg PO BID PRN 06/19/15 11/20/17 History Furosemide [Lasix] 40 mg PO DAILY #30 tab 06/21/15 11/20/17 Rx Multivitamins, Thera [Multivitamin 1 tab PO DAILY 04/13/16 11/20/17 History (formulary)] LORazepam [Ativan] 0.5 mg PO BID PRN 07/28/16 11/20/17 History Pantoprazole [Protonix] 40 mg PO QAM 07/28/16 11/20/17 History Sucralfate [Carafate] 1 gm PO BID-W/MEALS 07/28/16 11/20/17 History Ubidecarenone [Co Q-10] 200 mg PO DAILY 07/28/16 11/20/17 History Citalopram Hydrobromide [CeleXA] 20 mg PO DAILY 11/20/17 11/20/17 History Lisinopril [Zestril] 2.5 mg PO DAILY 11/20/17 11/20/17 History Lovastatin [Mevacor] 20 mg PO HS 11/20/17 11/20/17 History Morphine Sulfate ER [Ms Contin 15 mg PO Q12HR PRN 11/20/17 11/20/17 History 15Mg] Morphine Sulfate ER [Ms Contin 30 mg PO Q12HR PRN 11/20/17 11/20/17 History 30Mg] Warfarin [Coumadin] 2 mg PO HS 11/20/17 11/20/17 History Warfarin [Coumadin] 5 mg PO HS 11/20/17 11/20/17 History traZODone HCL 100 mg PO HS 11/20/17 11/20/17 History Allergies Allergy/AdvReac Type Severity Reaction Status Date / Time No Known Allergies Allergy Verified 11/20/17 08:17 Physical Exam Vitals: Vital Signs Temp Pulse Pulse Resp BP BP Pulse Ox 11/20/17 07:00 97.7 F 61 16 181/80 99 11/20/17 04:14 98.2 F 56 L 18 184/90 98 11/20/17 03:21 97.2 F L 60 18 168/81 97 11/20/17 00:47 61 11/20/17 00:37 60 11/19/17 23:43 20 11/19/17 23:27 97.3 F L 67 18 150/62 91 L Intake and Output 11/20/17 11/20/17 11/20/17 06:59 14:59 22:59 Intake Total 361 Output Total 435 Balance -74 Intake: Oral 361 Output: Urine 435 Other: Voiding Method Toilet Urinal # Voids 1 Weight 74.191 kg 74.191 kg Gen. appearance the patient is calm and comfortable pleasant 9 acute distress.Head exam was generally normal. There was no scleral icterus or corneal arcus. Mucous membranes were moist. Neck is supple and there is some minimal JVDs without any goiter or neck masses. Lungs sounds are diminished in lung bases and there is some minimal dullness to percussion the right lung base. No wheezes. No rhonchi. No significant crackling at this point. Heart sounds shows irregular S1 and S2 and there is some accentuation of the second heart sound. No significant murmurs appreciated. Sternum stable clean and intact. The patient has a pacemaker in the left chest area. Abdominal exam revealed normal bowel sounds. The abdomen was soft, non-tender, and without masses, organomegaly, or appreciable enlargement of the abdominal aorta. Extremities reveal trace edema and there is no cyanosis or clubbing at this point. Neurologically, the patient is awake and alert and there is no focal neurological deficit.Examination of the skin revealed no evidence of significant rashes, suspicious appearing nevi or other concerning lesions. Results - Laboratory Findings CBC and BMP: 11/20/17 01:16 11/20/17 01:16 PT/INR, D-dimer PT 27.0 sec (9.0-12.0) H 11/20/17 01:16 INR 3.0 (<1.2) H 11/20/17 01:16 Abnormal lab findings: Abnormal Labs 11/20/17 11/20/17 11/20/17 01:16 01:16 01:16 RBC 3.21 L Hgb 10.7 L Hct 30.3 L PT INR APTT Sodium 135 L Chloride 97 L BUN 26 H Total Creatine Kinase 49 L Albumin 3.4 L 11/20/17 01:16 RBC Hgb Hct PT 27.0 H INR 3.0 H APTT 31.1 H Sodium Chloride BUN Total Creatine Kinase Albumin - Diagnostic Findings CT scan - chest: image reviewed Assessment and Plan Plan: Assessment 1 recurrent right-sided pleural effusion. The patient has had 2 thoracenteses is already and unfortunately the chemical analysis of the fluid has not been done or is not available to me. Based on this, I'm not sure if this is a transudate or exudate and we cannot narrow down the exact nature of this pleural effusion. However, based on the most recent chest x-ray, the pleural fluid seems to be somewhat loculated and small and I don't think is contributing greatly to this patient shortness of breath 2 CHF with preserved LV function and essentially of a right-sided heart failure with significant degree of pulmonary hypertension 3 aortic valve stenosis status post aortic valve replacement/by prosthetic valve and the surgery was done in 2011 4 chronic atrial fibrillation on anticoagulation with warfarin with a therapeutic PT/INR, current rhythm is paced 5 remote history of DVT back in 2006 sit on anticoagulants 6 hypertension 7 hyperlipidemia 8 BPH/prostate cancer 9 recent hospitalization for a blood infection/sepsis in general 2018 at a hospital in [place]. 10 coronary artery disease 11 pacemaker insertion Plan Prior to committing to any procedures, would like to obtain records from previous hospitalization and see if there is any characterization of the pleural effusion that was drained from the right lung. The amount of fluid is small and somewhat loculated. Obtain a CAT scan of the chest with contrast to see and evaluate the nature of the pleural fluid and the size and characteristics. Patient is currently on diuretics with Lasix 40 g IV push every 12 hours. Continue that. Continue warfarin as there is no plans for repeating the thoracentesis for the time being. INR is at therapeutic range. We'll continue to follow.
--- NOTE | 2017-11-20 15:37 | CT ---
EXAMINATION TYPE: CT chest w con DATE OF EXAM: 11/20/2017 COMPARISON: Chest x-ray earlier today. HISTORY: pleural effusion. Abnormal chest x-ray. CT DLP: 606 mGycm. Automated Exposure Control for Dose Reduction was Utilized. TECHNIQUE: CT scan of the thorax is performed following with IV Contrast, patient injected with 100 mL of Isovue 300. FINDINGS: LUNGS: Small to moderate-sized right pleural effusion is confirmed. Mild diffuse reticular linear or interstitial opacities suggestive of interstitial edema. There is some compressive atelectasis clinical team lead iorly in the right lower lobe. There is some linear scarring or atelectasis anteriorly in the right m idlung. There is background of chronic emphysematous change with suggestion of some bibasilar scarrin g. There is no significant left-sided effusion. No pneumothorax is seen bilaterally. Mild central per ibronchial wall thickening is present. MEDIASTINUM: There are abnormal thoracic lymph nodes. For reference there is pericarinal lymph node m easuring 2.5 x 1.7 cm axial image 22. There is abnormal anterior superior mediastinal lymph node just anterior to left common carotid artery measuring 1.8 x 1.4 cm axial image 13. Cardiomegaly is identi fied. There is moderate to severe biatrial dilatation. There is right-sided pacemaker. Main pulmonary artery at level of bifurcation is 3.3 cm, CT findings suggesting underlying pulmonary artery hyperte nsion. Adjacent ascending aorta measures up to 4.1 cm diameter on axial image 25. 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 There is 1.0 cm right thyroid nodule axial image 9 lower pole level. OTHER: Cholecystectomy clips are noted. There is moderate plaquing visualized abdominal aorta. There is hemangioma L2 level inferiorly. There is moderate multilevel spurring in the spine. Disc space charo rowing L2-L3 level is present. IMPRESSION: Chronic emphysematous and parenchymal fibrotic changes. There is cardiomegaly with mild i nterstitial edema, correlate for CHF exacerbation. There is asymmetric small to moderate-sized right pleural effusion. There is suspicious thoracic adenopathy. Consider bronchoscopy or PET/CT follow-up.
[2017-11-20] MEDS: amLODIPine 5 MG TAB PO SCH (16:03)
[2017-11-20] MEDS ORDERED: WARFARIN 2 MG TAB PO SCH (18:00)
[2017-11-20] MEDS ORDERED: WARFARIN 5 MG TAB PO SCH (18:00)
[2017-11-20] MEDS: LISINOPRIL 10 MG TAB PO SCH (19:32)
[2017-11-20] MEDS ORDERED: ATORVASTATIN 20 MG TAB PO SCH (21:00)
[2017-11-20] MEDS ORDERED: PRAVASTATIN SODIUM 20 MG TAB PO SCH (21:00)
[2017-11-20] MEDS ORDERED: traZODone HCL 100 MG TAB PO SCH (21:00)
[2017-11-20 23:37] VITALS: PULSE 60; RESP 16
[2017-11-21 07:29] LABS: Basophils % (A) 0 %; Eosinophils % (A) 0 %; HCT 33.2 % (39.0-53.0); Lymphocytes # (A) 1.3 k/uL (1.0-4.8); Lymphocytes % (A) 15 %; MCH 32.1 pg (25.0-35.0); MCHC 33.2 g/dL (31.0-37.0); MCV 96.7 fL (80.0-100.0); Mean Platelet Volume 6.9; Monocytes # (A) 0.5 k/uL (0-1.0); Monocytes % (A) 6 %; Neutrophils # (A) 6.8 k/uL (1.3-7.7); Neutrophils % (A) 77 %; Platelet Count 210 k/uL (150-450); RBC 3.43 m/uL (4.30-5.90); RDW 14.3 % (11.5-15.5); WBC 8.9 k/uL (3.8-10.6)
[2017-11-21 07:34] LABS: Anion Gap 12 mmol/L; Blood Urea Nitrogen 33 mg/dL (9-20); Calcium 9.1 mg/dL (8.4-10.2); Carbon Dioxide 28 mmol/L (22-30); Chloride 96 mmol/L (98-107); Cholesterol 130 mg/dL (<200); Glucose 110 mg/dL (74-99); HDL Cholesterol 46 mg/dL (40-60); LDL Cholesterol,Calculated 70 mg/dL (0-99); Phosphorus 4.6 mg/dL (2.5-4.5); Potassium 4.2 mmol/L (3.5-5.1); Sodium 136 mmol/L (137-145); Triglycerides 71 mg/dL (<150)
[2017-11-21 08:05] VITALS: BP 154/73; TEMP 97.3
--- NOTE | 2017-11-21 08:21 | P.PN ---
Subjective Progress Note Date: 11/21/17 Principal diagnosis: Shortness of breath/CHF This is a pleasant 81-year-old gentleman with a past medical history significant for coronary artery disease and status post coronary artery revascularization, congestive heart failure secondary to diastolic dysfunction, hypertension, dyslipidemia, paroxysmal A. fib, status post permanent pacemaker implantation, was admitted to the hospital with progressive dyspnea and was diagnosed was congestive heart failure exacerbation secondary to diastolic dysfunction. The patient does also have pulmonary hypertension. He was started on Lasix IV. He stated that the shortness of breath slightly better. He was found to have large pleural effusion and currently he is in process to have pleurocentesis, possibly,. The Coumadin is on hold for that reason. Objective - Vital Signs Vital signs: Vital Signs Temp 97.3 F L 11/21/17 07:00 Pulse 60 11/21/17 07:00 Resp 16 11/21/17 07:00 BP 154/73 11/21/17 07:00 Pulse Ox 97 11/21/17 07:00 Intake & Output 11/20/17 11/21/17 11/21/17 18:59 06:59 18:59 Intake Total 761 Output Total 1760 520 Balance -999 -520 Weight 74.191 kg 73.573 kg Intake: Oral 761 Output: Urine 1760 520 Other: Voiding Method Urinal Urinal # Voids 1 - Constitutional General appearance: Present: no acute distress - Respiratory Respiratory: bilateral: diminished - Cardiovascular Rhythm: regular Heart sounds: normal: S1, S2 Abnormal Heart Sounds: Present: systolic murmur - Labs CBC & Chem 7: 11/21/17 06:59 11/21/17 06:59 Labs: Abnormal Lab Results - Last 24 Hours (Table) 11/21/17 11/21/17 Range/Units 06:59 06:59 RBC 3.43 L (4.30-5.90) m/uL Hgb 11.0 L (13.0-17.5) gm/dL Hct 33.2 L (39.0-53.0) % Sodium 136 L (137-145) mmol/L Chloride 96 L (98-107) mmol/L BUN 33 H (9-20) mg/dL Glucose 110 H (74-99) mg/dL Phosphorus 4.6 H (2.5-4.5) mg/dL Assessment and Plan Assessment: Assessment #1 acute on chronic diastolic heart failure #2 severe pulmonary hypertension #3 coronary artery disease and status post revascularization #4 paroxysmal atrial fibrillation #5 status post permanent pacemaker Plan #1 continue the IV diuretics #2 continue monitor the kidney function and electrolytes #3 the pulmonary team is on the case regarding possible pleurocentesis #4 follow-up with the patient.
[2017-11-21] MEDS: PANTOPRAZOLE 40 MG TABLET PO SCH (08:37)
[2017-11-21] MEDS: MULTIVITAMINS, THERA 1 EACH TAB PO SCH (08:37)
[2017-11-21] MEDS: LISINOPRIL 10 MG TAB PO SCH (08:37)
[2017-11-21] MEDS: FERROUS SULFATE 325 MG TAB PO SCH (08:37)
[2017-11-21] MEDS: FUROSEMIDE 10 MG/ML 4 ML VIAL IV SCH (08:37)
[2017-11-21] MEDS: CARVEDILOL 12.5 MG TAB PO SCH (08:37)
[2017-11-21] MEDS: amLODIPine 5 MG TAB PO SCH (08:38)
[2017-11-21] MEDS: CITALOPRAM HYDROBROMIDE 10 MG TAB PO SCH (08:38)
[2017-11-21] MEDS: SUCRALFATE 1 GM TAB PO SCH (08:38)
[2017-11-21] MEDS: MORPHINE SULFATE ER 30 MG TABLET PO SCH (08:45)
[2017-11-21 09:10] LABS: INR 2.4 (<1.2); Prothrombin Time 21.5 sec (9.0-12.0)
[2017-11-21] MEDS: LORazepam 1 MG TAB PO SCH (12:07)
--- NOTE | 2017-11-21 13:56 | P.PN ---
Subjective Progress Note Date: 11/21/17 81-year-old male patient, coming in with increased shortness of breath. I was asked to evaluate this patient in regards to a recurrent right-sided pleural effusion. Going back in the records, the patient has developed this pleural effusion back in June 2017. At that time he had a ultrasound-guided thoracentesis by the radiologist here in the hospital and the pleural fluid was not sent for any analysis and based on that the exact cause of the pleural effusion is not known. He is known to have history of coronary artery disease, history of aortic valve stenosis for which the patient underwent an aortic valve replacement with a bioprosthetic valve, chronic exacerbation for which is on anticoagulation, previous history of DVT of the left lower oximetry back in 2006, and history of CHF which is essentially of a right-sided heart failure with significant pulmonary hypertension. The patient was in [place] and he was hospitalized a few months back, specifically in general 2018 for a septic complication. Apparently had possible cultures. A PICC line was inserted and the patient was given prolonged antibiotic course. He was not told to have any valvular infection knowing he was told to have any pneumonia or pleural space infection. During the same hospitalization he had a thoracentesis were more than 1 L of pleural fluid was aspirated from the right lung. He was also placed on diuretics. Currently the patient is having exertional dyspnea, paroxysmal nocturnal dyspnea and some increased edema in lower extremities bilaterally. Chest x-ray was reported to show a small right-sided pleural effusion which is somewhat loculated and for that reason a pulmonary consultation was requested. The patient has no fever. No chills. No night sweats. He is on anticoagulation and the patient's PT/INR is therapeutic at this point. He is resting comfortably on a chair. He is on room air. No other complaints for now. No history of malignancy. Echocardiogram was noted as the patient has an ejection fraction of 50-55%, RV is mildly dilated, and a severely dilated, there is mild- to-moderate mitral regurgitation, severe pulmonary hypertension with estimated right ventricular systolic pressure of 67. No pericardial effusion. On 11/21/2017, and seeing this patient for a follow-up. The patient is looking well and he has been adequately diuresed. I reviewed the CAT scan of the chest and there is a small left-sided pleural effusion that was visualized on the right. There is also evidence of COPD and some limited parenchymal fibrotic changes. Is also cardiomegaly and mild interstitial edema. Suspicious thoracic lymphadenopathy is also seen and the largest lymph node is a 2.5 x 1.7 cm lymph node in the precarinal area that may be concerning and may need to be biopsied at a later stage. There is also evidence of dilatation of the pulmonary arteries consistent with underlying pulmonary hypertension. Post CABG changes can be seen as the patient is sternal and mediastinal Wires. A 1 Cm Right Thyroid Nodule Was Also Seen in the Right Lower Pole of the Thyroid Gland. The Patient Is Afebrile. The Patient Is Looking Well. He Is Still Anticoagulated. The Plan Is to Send Him Home and I Had a Lengthy Discussion with Him in Regards to the Pleural Effusion and the Need for Another Thoracentesis Specially the Fluid Becomes Recurrent and Even Possibly Biopsying the Precarinal Lymph Node Which Could Be Potentially Pathologic. Objective - Vital Signs Vital signs: Vital Signs Temp 97.3 F L 11/21/17 07:00 Pulse 60 11/21/17 07:00 Resp 16 11/21/17 08:00 BP 154/73 11/21/17 07:00 Pulse Ox 97 11/21/17 07:00 Intake & Output 11/20/17 11/21/17 11/21/17 18:59 06:59 18:59 Intake Total 761 120 Output Total 1760 520 Balance -999 -520 120 Weight 74.191 kg 73.573 kg Intake: Oral 761 120 Output: Urine 1760 520 Other: Voiding Method Urinal Urinal Urinal # Voids 1 - Exam Gen. appearance the patient is calm and comfortable pleasant 9 acute distress.Head exam was generally normal. There was no scleral icterus or corneal arcus. Mucous membranes were moist. Neck is supple and there is some minimal JVDs without any goiter or neck masses. Lungs sounds are diminished in lung bases and there is some minimal dullness to percussion the right lung base. No wheezes. No rhonchi. No significant crackling at this point. Heart sounds shows irregular S1 and S2 and there is some accentuation of the second heart sound. No significant murmurs appreciated. Sternum stable clean and intact. The patient has a pacemaker in the left chest area. Abdominal exam revealed normal bowel sounds. The abdomen was soft, non-tender, and without masses, organomegaly, or appreciable enlargement of the abdominal aorta. Extremities reveal trace edema and there is no cyanosis or clubbing at this point. Neurologically, the patient is awake and alert and there is no focal neurological deficit.Examination of the skin revealed no evidence of significant rashes, suspicious appearing nevi or other concerning lesions. - Labs CBC & Chem 7: 11/21/17 06:59 11/21/17 06:59 Labs: Abnormal Lab Results - Last 24 Hours (Table) 11/21/17 11/21/17 11/21/17 Range/Units 06:59 06:59 08:46 RBC 3.43 L (4.30-5.90) m/uL Hgb 11.0 L (13.0-17.5) gm/dL Hct 33.2 L (39.0-53.0) % PT 21.5 H (9.0-12.0) sec INR 2.4 H (<1.2) Sodium 136 L (137-145) mmol/L Chloride 96 L (98-107) mmol/L BUN 33 H (9-20) mg/dL Glucose 110 H (74-99) mg/dL Phosphorus 4.6 H (2.5-4.5) mg/dL Assessment and Plan Plan: Assessment 1 recurrent right-sided pleural effusion. The patient has had 2 thoracenteses is already and unfortunately the chemical analysis of the fluid has not been done or is not available to me. Based on this, I'm not sure if this is a transudate or exudate and we cannot narrow down the exact nature of this pleural effusion. However, based on the most recent chest x-ray, the pleural fluid seems to be somewhat loculated and small and I don't think is contributing greatly to this patient shortness of breath 2 CHF with preserved LV function and essentially of a right-sided heart failure with significant degree of pulmonary hypertension 3 aortic valve stenosis status post aortic valve replacement/by prosthetic valve and the surgery was done in 2011 4 chronic atrial fibrillation on anticoagulation with warfarin with a therapeutic PT/INR, current rhythm is paced 5 remote history of DVT back in 2006 on anticoagulants 6 hypertension 7 hyperlipidemia 8 BPH/prostate cancer 9 recent hospitalization for a blood infection/sepsis in general 2018 at a hospital in [place]. 10 coronary artery disease 11 pacemaker insertion Plan This patient improved with diuretics. Nevertheless the CAT scan of the chest showed several abnormalities including a small to moderate-sized right-sided pleural effusion and a precarinal lymph node measuring 2.4 cm in size that looks suspicious. Based on this, I have recommended this patient get all his records from [place] to analyze the characteristics of the right-sided pleural effusion fluid. May consider another drainage of the site of the fluid gets worse. May need also a bronchoscopy and chest block and he did aspirate of the precarinal lymph node in the future if the effusion and the symptoms become recurrent. The patient is going to be followed up by Dr. Ballard on outpatient basis.
--- NOTE | 2017-11-21 15:36 | P.DS ---
Providers Date of admission: 11/20/17 03:07 Expected date of discharge: 11/21/17 Attending physician: Napoleon Harman MD Consults: 11/20/17 02:32 Consult Physician Routine Consulting Provider: [facility] Consult Reason/Comments: Shortness of breath, CHF Do you want consulting provider notified?: Yes 11/20/17 10:45 Consult Physician Routine Consulting Provider: Jae Ovalle Consult Reason/Comments: pleural effusion Do you want consulting provider notified?: Yes Primary care physician: Brayden Lundberg - Discharge Diagnosis(es) (1) Acute diastolic (congestive) heart failure Status: Acute (2) Moderate to severe pulmonary hypertension Status: Acute (3) Pleural effusion Status: Acute (4) Hypertensive urgency Status: Acute (5) Chronic anemia Status: Acute (6) Acute and chronic respiratory failure with hypoxia Status: Acute Hospital Course: Patient is an 81-year-old male with a past medical history of systolic dysfunction, DVT, coronary artery disease, and aortic valve replacement who presented to the emergency department with complaints of shortness of breath. On arrival to the ER he was slightly hypertensive with a blood pressure 150/62. Chest x-ray showed a right-sided pleural effusion. Laboratory analysis was consistent with his chronic anemia and hemoglobin of 10.7. His BUN was slightly elevated at 26. His troponins were negative. He was diagnosed with acute exacerbation of congestive heart failure. He was started on Lasix and his home medications were restarted. He was admitted to the general medical floor for further monitoring and care. He states that he has had recurrent pleural effusions requiring thoracentesis X 5. He states that Lasix has been ineffective. He has even had doses of 120mg which have resulted in resolution of his peripheral edema but not the fluid on his lungs. He states his last CAT scan and thoracentesis were performed in August at hospital in [place]. On the morning after admission he still not had significant improvement in his shortness of breath. Cardiology and pulmonary were consulted. Cardiology agreed with continued IV diuresis. Pulmonary ordered CT of the chest which showed a small pleural effusion greatly improved but abnormal lymph nodes. On the morning of 11/21 his shortness of breath had completely resolved. He was able to ambulate without difficulty and was able to come off of oxygen. Pulmonary to cleared him stable for discharge as he did not need a thoracentesis. Patient was asking to go home. We have increased his Lasix to twice daily and increase his lisinopril during his hospitalization secondary to elevated blood pressures. He was given new prescriptions for these on discharge. He was also given a prescription to have a repeat basic metabolic profile done in the next week with results to Dr. Nath. He was discharged home in stable condition. He will follow-up with Dr. Goetz in 1-2 weeks. We will also call the pulmonary office to help coordinate follow-up for bronchoscopy, as this was not on patient's printed discharge instructions. He was also given a 1500 mL fluid restriction. Patient seen and examined at bedside. Shortness of breath is greatly improved and better than baseline. No chest pain. No nausea or vomiting. Feeling well up and ambulating wants to go home. Aware of needs for follow-up testing and blood work. Vital signs reviewed and stable. General: non toxic, no distress, appears at stated age Derm: warm, dry Head: atraumatic, normocephalic, symmetric Eyes: EOMI, no lid lag, anicteric sclera Mouth: no lip lesion, mucus membranes moist Cardiovascular: S1-S2 with systolic ejection murmur,, positive posterior tibial pulse bilateral, Lungs: CTA bilateral, no rhonchi, no rales , no accessory muscle use Abdominal: soft, nontender to palpation, no guarding, no appreciable organomegaly Ext: no gross muscle atrophy, 1 plus edema, no contractures Neuro: CN II-XI grossly intact, no focal neuro deficits Psych: Alert, oriented, appropriate affect A total of 35 minutes of time were spent preparing this complex discharge summary . Pertinent Studies: CT chest-chronic emphysematous and parenchymal fibrotic changes, cardiomegaly with mild interstitial edema, asymmetric small to moderate right sided pleural effusion. Suspicious thoracic adenopathy. Patient Condition at Discharge: Good Plan - Discharge Summary New Discharge Prescriptions: New Furosemide [Lasix] 40 mg PO BID #60 tablet Lisinopril [Zestril] 10 mg PO BID #60 tab Continue Ferrous Sulfate [Iron (65 MG Elemental)] 325 mg PO DAILY Carvedilol 25 mg PO DAILY oxyCODONE HCL 15 mg PO BID PRN PRN Reason: Pain Multivitamins, Thera [Multivitamin (formulary)] 1 tab PO DAILY LORazepam [Ativan] 0.5 mg PO BID PRN PRN Reason: Anxiety Pantoprazole [Protonix] 40 mg PO QAM Ubidecarenone [Co Q-10] 200 mg PO DAILY Sucralfate [Carafate] 1 gm PO BID-W/MEALS Citalopram Hydrobromide [CeleXA] 20 mg PO DAILY Lovastatin [Mevacor] 20 mg PO HS Morphine Sulfate ER [Ms Contin] 30 mg PO Q12HR PRN PRN Reason: Pain Morphine Sulfate ER [Ms Contin] 15 mg PO Q12HR PRN PRN Reason: Pain traZODone HCL 100 mg PO HS Warfarin [Coumadin] 5 mg PO HS Warfarin [Coumadin] 2 mg PO HS Discontinued Furosemide [Lasix] 40 mg PO DAILY #30 tab Lisinopril [Zestril] 2.5 mg PO DAILY Discharge Medication List Carvedilol 25 mg PO DAILY 06/19/15 [History] Ferrous Sulfate [Iron (65 MG Elemental)] 325 mg PO DAILY 06/19/15 [History] oxyCODONE HCL 15 mg PO BID PRN 06/19/15 [History] Multivitamins, Thera [Multivitamin (formulary)] 1 tab PO DAILY 04/13/16 [History ] LORazepam [Ativan] 0.5 mg PO BID PRN 07/28/16 [History] Pantoprazole [Protonix] 40 mg PO QAM 07/28/16 [History] Sucralfate [Carafate] 1 gm PO BID-W/MEALS 07/28/16 [History] Ubidecarenone [Co Q-10] 200 mg PO DAILY 07/28/16 [History] Citalopram Hydrobromide [CeleXA] 20 mg PO DAILY 11/20/17 [History] Lovastatin [Mevacor] 20 mg PO HS 11/20/17 [History] Morphine Sulfate ER [Ms Contin] 15 mg PO Q12HR PRN 11/20/17 [History] Morphine Sulfate ER [Ms Contin] 30 mg PO Q12HR PRN 11/20/17 [History] Warfarin [Coumadin] 2 mg PO HS 11/20/17 [History] Warfarin [Coumadin] 5 mg PO HS 11/20/17 [History] traZODone HCL 100 mg PO HS 11/20/17 [History] Furosemide [Lasix] 40 mg PO BID #60 tablet 11/21/17 [Rx] Lisinopril [Zestril] 10 mg PO BID #60 tab 11/21/17 [Rx] Follow up Appointment(s)/Referral(s): Guillaume Ballard MD [STAFF PHYSICIAN] - 2 Weeks [facility], [NON-STAFF] - 1 Week Ravi Goetz MD [STAFF PHYSICIAN] - 2 Weeks (Patient to call Dr. Goetz's office to schedule follow up appointment. The office is closed at time of discharge.) Brayden Lundberg MD [Primary Care Provider] - 1-2 days (Patient to call Dr. Lundberg's office Thursday to schedule follow up appointment. The office is closed at time of discharge. ) Ambulatory/Diagnostic Orders: Basic Metabolic Panel [LAB.AMB] Location: Determined By Patient Patient Instructions/Handouts: Lisinopril (By mouth), Furosemide (By mouth), Congenital Heart Disease (DC) Activity/Diet/Wound Care/Special Instructions: Heart Healthy Diet 1500 mL fluid restriction Activity as tolerated Discharge Disposition: HOME SELF-CARE
== END 2017-11-21 12:26 | disposition home or self-care (01) | DRG 291 ==
LOC: EC 23:25 → 5MS5E 11-20 03:07
PROVIDERS: ADMIT Internal Medicine; ATTEND Internal Medicine
DX: I11.0 Hypertensive heart disease with heart failure (principal); J96.21 Acute and chronic respiratory failure with hypoxia; I27.29 Other secondary pulmonary hypertension; I48.2 Chronic atrial fibrillation; D64.9 Anemia, unspecified; I16.0 Hypertensive urgency; E04.1 Nontoxic single thyroid nodule; E78.5 Hyperlipidemia, unspecified; F41.9 Anxiety disorder, unspecified; I25.10 Atherosclerotic heart disease of native coronary artery without angina pectoris; I50.33 Acute on chronic diastolic (congestive) heart failure; I50.810 Right heart failure, unspecified; I34.0 Nonrheumatic mitral (valve) insufficiency; J44.9 Chronic obstructive pulmonary disease, unspecified; R59.0 Localized enlarged lymph nodes; T50.1X6A Underdosing of loop [high-ceiling] diuretics, initial encounter; T46.5X6A Underdosing of other antihypertensive drugs, initial encounter; I25.2 Old myocardial infarction; N40.0 Benign prostatic hyperplasia without lower urinary tract symptoms; Z96.0 Presence of urogenital implants; Z79.01 Long term (current) use of anticoagulants; Z87.01 Personal history of pneumonia (recurrent); Z79.2 Long term (current) use of antibiotics; Z79.899 Other long term (current) drug therapy; Z82.49 Family history of ischemic heart disease and other diseases of the circulatory system; Z85.46 Personal history of malignant neoplasm of prostate; Z86.718 Personal history of other venous thrombosis and embolism; Z87.891 Personal history of nicotine dependence; Z91.14 Patient's other noncompliance with medication regimen; Z95.0 Presence of cardiac pacemaker; Z95.1 Presence of aortocoronary bypass graft; Z95.3 Presence of xenogenic heart valve; Z95.5 Presence of coronary angioplasty implant and graft; Z99.81 Dependence on supplemental oxygen; Z98.42 Cataract extraction status, left eye; Z98.41 Cataract extraction status, right eye; Z79.891 Long term (current) use of opiate analgesic
CPT/HCPCS: 36415; 71046; 71260; 80048; 80053; 80061; 82550; 82553; 83735; 83880; 84100; 84484; 85025; 85610; 85730; 93005; 93306; 94640; 96374; 99284

== ENCOUNTER 2017-11-23 09:14 | Inpatient (IN) | payer MEDICARE ==
--- NOTE | 2017-11-23 10:17 | ED ---
General Adult HPI - General Chief complaint: Shortness of Breath Stated complaint: upper respiratory Time Seen by Provider: 11/23/17 09:18 Source: patient, RN notes reviewed, old records reviewed Mode of arrival: ambulatory Limitations: no limitations - History of Present Illness Initial comments: This is an 81-year-old male the ER for evaluation. Patient presented to ER as a transfer from [facility] for evaluation regarding right-sided pleural effusion, shortness of breath with increased cough and congestion. Patient did get breathing treatments and he does feel mildly improved at this time, he has no pain. Patient does have history of right-sided pleural effusion with prior history of thoracentesis, therapeutic. Patient unsure of cause. No recent fevers no sick contacts, no no travel history. - Related Data Home Medications Medication Instructions Recorded Confirmed Carvedilol 25 mg PO DAILY 06/19/15 11/23/17 Ferrous Sulfate [Iron (65 MG 325 mg PO DAILY 06/19/15 11/23/17 Elemental)] oxyCODONE HCL 15 mg PO BID PRN 06/19/15 11/23/17 Multivitamins, Thera [Multivitamin 1 tab PO DAILY 04/13/16 11/23/17 (formulary)] LORazepam [Ativan] 0.5 mg PO BID PRN 07/28/16 11/23/17 Pantoprazole [Protonix] 40 mg PO QAM 07/28/16 11/23/17 Sucralfate [Carafate] 1 gm PO BID-W/MEALS 07/28/16 11/23/17 Ubidecarenone [Co Q-10] 200 mg PO DAILY 07/28/16 11/23/17 Citalopram Hydrobromide [CeleXA] 20 mg PO DAILY 11/20/17 11/23/17 Lovastatin [Mevacor] 20 mg PO HS 11/20/17 11/23/17 Morphine Sulfate ER [Ms Contin] 15 mg PO Q12HR PRN 11/20/17 11/23/17 Morphine Sulfate ER [Ms Contin] 30 mg PO Q12HR PRN 11/20/17 11/23/17 Warfarin [Coumadin] 2 mg PO HS 11/20/17 11/23/17 Warfarin [Coumadin] 5 mg PO HS 11/20/17 11/23/17 traZODone HCL 100 mg PO HS 11/20/17 11/23/17 Previous Rx's Medication Instructions Recorded Furosemide [Lasix] 40 mg PO BID #60 tablet 11/21/17 Lisinopril [Zestril] 10 mg PO BID #60 tab 11/21/17 Allergies Allergy/AdvReac Type Severity Reaction Status Date / Time No Known Allergies Allergy Verified 11/23/17 10:06 Review of Systems ROS Statement: Those systems with pertinent positive or pertinent negative responses have been documented in the HPI. ROS Other: All systems not noted in ROS Statement are negative. Past Medical History Past Medical History: Coronary Artery Disease (CAD), Chest Pain / Angina, Heart Failure, Deep Vein Thrombosis (DVT), Hyperlipidemia, Hypertension, Myocardial Infarction ([place]), Prostate Disorder Additional Past Medical History / Comment(s): Coronary artery disease, aortic valve replacement with a prostatic aortic valve, chronic atrial fibrillation, pulmonary hypertension with evidence of right-sided heart failure, remote history of DVT back in 2006, hypertension, hyperlipidemia, BPH, prostate cancer , recurrent right-sided pleural effusion, sepsis in general 2018, recurrent thoracenteses along the right lung, Last Myocardial Infarction Date:: 2005? History of Any Multi-Drug Resistant Organisms: None Reported Past Surgical History: Appendectomy, Cardiac Valve Replacement, Cholecystectomy , Heart Catheterization, Heart Catheterization With Stent, Hernia Repair, Pacemaker, Prostate Surgery Additional Past Surgical History / Comment(s): aortic valve replacement, bilateral cataracts removal, penile implant x2, thoracentesis last one aug 2017 Past Anesthesia/Blood Transfusion Reactions: Previous Problems w/ Anesthesia Additional Past Anesthesia/Blood Transfusion Reaction / Comment(s): "one time BP dropped too low" Date of Last Stent Placement:: 2005 Type of Cardiac Device: Permanent Pacemaker Device Placement Date:: approx 12 yrs ago Past Psychological History: Anxiety Smoking Status: Former smoker Past Alcohol Use History: None Reported Past Drug Use History: None Reported - Past Family History Brother(s) Family Medical History: Cancer Sister(s) Family Medical History: Cancer Father Family Medical History: Cancer Additional Family Medical History / Comment(s): HEART PROLEMS AND VASUCLAR PROBLEMS HAD CABG Mother Family Medical History: Myocardial Infarction ([place]) Additional Family Medical History / Comment(s): HAD OPEN HEART SX. General Exam Limitations: no limitations General appearance: alert, in no apparent distress Head exam: Present: atraumatic, normocephalic, normal inspection Eye exam: Present: normal appearance, PERRL, EOMI. Absent: scleral icterus, conjunctival injection, periorbital swelling ENT exam: Present: normal exam, mucous membranes moist Neck exam: Present: normal inspection. Absent: tenderness, meningismus, lymphadenopathy Respiratory exam: Present: wheezes, accessory muscle use, decreased breath sounds (Right-sided). Absent: normal lung sounds bilaterally, respiratory distress, rales, rhonchi, stridor Cardiovascular Exam: Present: regular rate, normal rhythm, normal heart sounds. Absent: systolic murmur, diastolic murmur, rubs, gallop, clicks GI/Abdominal exam: Present: soft, normal bowel sounds. Absent: distended, tenderness, guarding, rebound, rigid Extremities exam: Present: normal inspection, full ROM, normal capillary refill. Absent: tenderness, pedal edema, joint swelling, calf tenderness Back exam: Present: normal inspection Neurological exam: Present: alert, oriented X3, CN II-XII intact Psychiatric exam: Present: normal affect, normal mood Skin exam: Present: warm, dry, intact, normal color. Absent: rash Course Vital Signs 11/23/17 09:16 Temperature 98.1 F Pulse Rate 60 Respiratory 18 Rate Blood Pressure 185/82 O2 Sat by Pulse 89 L Oximetry - Reevaluation(s) Reevaluation #1: 11/23/17 10:16 Patient's transfer paperwork is reviewed, x-rays reviewed and compared to prior Medical Decision Making - Medical Decision Making 81 male the ER with right-sided pleural effusion, will admit for evaluation by pulmonology, breathing treatments, oxygen and monitoring of pulse ox Disposition Clinical Impression: CHF exacerbation, Acute and chronic respiratory failure with hypoxia, Pleural effusion Disposition: ADMITTED IP TO THIS HOSP Condition: Fair Referrals: Brayden Lundberg MD [Primary Care Provider] - 1-2 days
--- NOTE | 2017-11-23 14:32 | P.CNPUL ---
History of Present Illness Consult date: 11/23/17 Requesting physician: Drew Nevarez Reason for consult: dyspnea, abnormal CXR/CT Chief complaint: Shortness of breath, cough, congestion History of present illness: This is a very pleasant 81-year-old gentleman who follows with Dr. Lundberg as his primary care physician. He has a known history of coronary artery disease, aortic valve stenosis with previous bypass surgery valve replacement, chronic atrial fibrillation status post permanent pacemaker implantation on oral anticoagulants, DVT of the left lower extremity, congestive heart failure, pulmonary hypertension. The patient also has a previous history of recurrent pleural effusions with initial thoracentesis in June 2017 with no fluid analysis completed, thoracentesis of the right lung again in August 2017 in [place]. He also has a history of sepsis with positive blood cultures requiring PICC line insertion and prolonged antibiotics. This too was while in [place] this year. He was admitted here on 11/20/2017 with complaints of increasing shortness of breath cough and congestion. He was found however to have recurrent right pleural effusion was seen and evaluated by Dr. Ovalle at that time. He felt as though the fluid was small and somewhat loculated and no repeat thoracentesis was performed. He subsequently recovered and was discharged home on 11/21/2017. He states he has had ongoing shortness of breath with cough and congestion. Earlier this morning he developed a bloody nose and sinus drainage and presented to [facility] emergency room for the same. Chest x-ray again showed evidence of pleural effusion and he was transferred here for further evaluation and treatment. He is seen on the selective care unit. He is currently sitting up in a chair at the bedside. He is awake and alert in no acute distress. He does have a loose nonproductive cough. No chills or night sweats. He is short of breath with minimal exertion. He is maintaining good O2 saturations in the high 90s on 2 L/m per nasal cannula. He's been afebrile. Hemodynamically stable. Influenza screen is negative. Review of Systems Constitutional: Reports fatigue, Reports weakness Eyes: denies blurred vision, denies decreased vision Ears: deny: decreased hearing Ears, nose, mouth and throat: Reports epistaxis Cardiovascular: Reports shortness of breath, Denies chest pain Respiratory: Reports congestion, Reports cough, Reports dyspnea Gastrointestinal: Denies abdominal pain, Denies diarrhea, Denies nausea, Denies vomiting Genitourinary: Reports as per HPI Musculoskeletal: Denies myalgias Integumentary: Denies pruritus, Denies rash Neurological: Denies numbness, Denies weakness Psychiatric: Denies anxiety, Denies depression Endocrine: Denies fatigue, Denies weight change Past Medical History Past Medical History: Coronary Artery Disease (CAD), Chest Pain / Angina, Heart Failure, Deep Vein Thrombosis (DVT), Hyperlipidemia, Hypertension, Myocardial Infarction ([place]), Prostate Disorder Additional Past Medical History / Comment(s): Coronary artery disease, aortic valve replacement with a prostatic aortic valve, chronic atrial fibrillation, pulmonary hypertension with evidence of right-sided heart failure, remote history of DVT back in 2006, hypertension, hyperlipidemia, BPH, prostate cancer , recurrent right-sided pleural effusion, sepsis in general 2018, recurrent thoracenteses along the right lung, Last Myocardial Infarction Date:: 2005? History of Any Multi-Drug Resistant Organisms: None Reported Past Surgical History: Appendectomy, Cardiac Valve Replacement, Cholecystectomy , Heart Catheterization, Heart Catheterization With Stent, Hernia Repair, Pacemaker, Prostate Surgery Additional Past Surgical History / Comment(s): aortic valve replacement, bilateral cataracts removal, penile implant x2, thoracentesis last one aug 2017 Past Anesthesia/Blood Transfusion Reactions: Previous Problems w/ Anesthesia Additional Past Anesthesia/Blood Transfusion Reaction / Comment(s): "one time BP dropped too low" Date of Last Stent Placement:: 2005 Type of Cardiac Device: Permanent Pacemaker Device Placement Date:: approx 12 yrs ago Past Psychological History: Anxiety Smoking Status: Former smoker Past Alcohol Use History: None Reported Past Drug Use History: None Reported - Past Family History Brother(s) Family Medical History: Cancer Sister(s) Family Medical History: Cancer Father Family Medical History: Cancer Additional Family Medical History / Comment(s): HEART PROLEMS AND VASUCLAR PROBLEMS HAD CABG Mother Family Medical History: Myocardial Infarction ([place]) Additional Family Medical History / Comment(s): HAD OPEN HEART SX. Medications and Allergies Home Medications Medication Instructions Recorded Confirmed Type Carvedilol 25 mg PO DAILY 06/19/15 11/23/17 History Ferrous Sulfate [Iron (65 MG 325 mg PO DAILY 06/19/15 11/23/17 History Elemental)] oxyCODONE HCL 15 mg PO BID PRN 06/19/15 11/23/17 History Multivitamins, Thera [Multivitamin 1 tab PO DAILY 04/13/16 11/23/17 History (formulary)] LORazepam [Ativan] 0.5 mg PO BID PRN 07/28/16 11/23/17 History Pantoprazole [Protonix] 40 mg PO QAM 07/28/16 11/23/17 History Sucralfate [Carafate] 1 gm PO BID-W/MEALS 07/28/16 11/23/17 History Ubidecarenone [Co Q-10] 200 mg PO DAILY 07/28/16 11/23/17 History Citalopram Hydrobromide [CeleXA] 20 mg PO DAILY 11/20/17 11/23/17 History Lovastatin [Mevacor] 20 mg PO HS 11/20/17 11/23/17 History Morphine Sulfate ER [Ms Contin] 15 mg PO Q12HR PRN 11/20/17 11/23/17 History Morphine Sulfate ER [Ms Contin] 30 mg PO Q12HR PRN 11/20/17 11/23/17 History Warfarin [Coumadin] 2 mg PO HS 11/20/17 11/23/17 History Warfarin [Coumadin] 5 mg PO HS 11/20/17 11/23/17 History traZODone HCL 100 mg PO HS 11/20/17 11/23/17 History Furosemide [Lasix] 40 mg PO BID #60 tablet 11/21/17 11/23/17 Rx Lisinopril [Zestril] 10 mg PO BID #60 tab 11/21/17 11/23/17 Rx Allergies Allergy/AdvReac Type Severity Reaction Status Date / Time No Known Allergies Allergy Verified 11/23/17 10:06 Physical Exam Vitals: Vital Signs Temp Pulse Pulse Resp BP BP Pulse Ox 11/23/17 13:51 97.7 F 60 18 165/72 98 11/23/17 13:26 97.3 F L 64 18 121/56 99 11/23/17 11:23 60 18 177/110 100 11/23/17 09:16 98.1 F 60 18 185/82 89 L Intake and Output 11/22/17 11/23/17 11/23/17 22:59 06:59 14:59 Other: Weight 74.843 kg GENERAL EXAM: Alert, active, comfortable in no apparent distress. HEAD: Normocephalic. EYES: Normal reaction of pupils, equal size. NOSE: Clear with pink turbinates. THROAT: No erythema or exudates. NECK: No masses, no JVD. CHEST: No chest wall deformity. LUNGS: Equal air entry with few scattered rhonchi, crackles in the right posterior base, diminished. CVS: S1 and S2 normal with no audible murmur, regular rhythm. ABDOMEN: No hepatosplenomegaly, normal bowel sounds, no guarding or rigidity. SPINE: No scoliosis or deformity SKIN: No rashes CENTRAL NERVOUS SYSTEM: No focal deficits, tone is normal in all 4 extremities. EXTREMITIES: There is no peripheral edema. No clubbing, no cyanosis. Peripheral pulses are intact. Results - Diagnostic Findings Chest x-ray: image reviewed Assessment and Plan Assessment: Impression: #1 Acute hypoxic respiratory failure secondary to recurrent right-sided pleural effusion. The patient has a history of recurrent right-sided pleural effusions of unclear etiology. No fluid analysis available. No pathology available. First one done June 2017. Second one done in January 2018 in [place]. The patient was found to have. Pericarinal lymph node measuring 2.5 x 1.7 cm. There is also abnormal anterior superior mediastinal lymph node just anterior to the left carotid artery measuring 1.8 x 1.4 cm. These were to be investigated in the outpatient setting. #2 History of diastolic congestive heart failure with significant pulmonary hypertension. #3 Aortic valve stenosis status post aortic valve replacement utilizing a bioprosthetic aortic valve. #4 Chronic atrial fibrillation anticoagulated with warfarin. #5 Cardiac arrhythmia requiring permanent pacemaker implantation. #6 Remote history of DVT in 2006, remains on anticoagulants. #7 Hypertension. #8 Hyperlipidemia. #9 History of prostate cancer. #10 Coronary artery disease. #11 Recent hospitalization for sepsis in August 2017 in [place]. #12 Chronic pain syndrome. #13 Anxiety/depression. Plan: The patient was seen and evaluated by Dr. Ballard. We'll go ahead and obtain an ultrasound of the right chest to see if there is any free flowing fluid that could be drained via thoracentesis, even if a small amount for diagnostic purposes could be useful. May need to hold anticoagulants. We will add bronchodilators, Mucinex and empiric antibiotics. The patient will also need further workup regarding the pericardial renal and superior mediastinal lymphadenopathy. Possibly a PET scan in the outpatient setting versus CT- guided FNA versus mediastinoscopy. We will continue to follow and make further recommendations based on his clinical status. I, the cosigning physician, performed a history & physical examination of the patient. Lungs sounds do scattered rhonchi, crackles in the right posterior base. Maintaining good O2 saturations in the 90s on 2 L/m per nasal cannula. I discussed the assessment and plan of care with my nurse practitioner, Margarita Soto. I attest to the above note as dictated by her. Time with Patient: Greater than 30
[2017-11-23] MEDS ORDERED: MORPHINE SULFATE ER 15 MG TABLET PO PRN (15:24)
[2017-11-23] MEDS ORDERED: IPRATROPIUM-ALBUTEROL 3 ML NEB INHALATION PRN (15:26)
--- NOTE | 2017-11-23 15:38 | P.HPIM ---
History of Present Illness Patient is a pleasant 81-year-old man is admitted for excessive phlegm and patient does have a significant rhonchus breath sounds she denied he denied any fever his phlegm A is white-stapleton lotion color. Patient is found to have pleural effusion on the right side patient is transferred from the [facility] unfortunately I do not have any chest x-ray reports available and the eye, unable to review the chest x-ray images at this time. Patient was evaluated by Dr. Ballard from pulmonary service. Patient was recently discharged from the hospital after he was treated for chronic diastolic dysfunction with acute exacerbation was discharged on Lasix at that time patient has small loculated right-sided pleural effusion which she was not drainable at that time. In any significant the shortness of breath at denied any orthopnea PND. Patient was subsequently transferred here from [facility] most of his care isn't [facility]. Patient in the past had pleural effusion in 2 locations and had crackles and wheezes at the time pleural fluid labs are not available for from that time. Ultrasound of the chest is being obtained. Patient is on multiple opiate medications for severe chronic low back pain and neuropathy and none of the neuropathic medications were helpful in the past. Patient has a bioprosthetic valve which is occult valve and patient is on Coumadin for that I do not have any INR available INR will be ordered and Coumadin is being held for possible thoracocentesis on the right side. Review of Systems REVIEW OF SYSTEMS: CONSTITUTIONAL: No fever, no malaise, no fatigue. HEENT: No recent visual problems or hearing problems. Denied any sore throat. CARDIOVASCULAR: No chest pain, orthopnea, PND, no palpitations, no syncope. PULMONARY: No shortness of breath, no hemoptysis. GASTROINTESTINAL: No diarrhea, no nausea, no vomiting, no abdominal pain. Normoactive bowel sounds. NEUROLOGICAL: No headaches, no weakness, no numbness. HEMATOLOGICAL: Denies any bleeding or petechiae. GENITOURINARY: Denies any burning micturition, frequency, or urgency. MUSCULOSKELETAL/RHEUMATOLOGICAL: Denies any joint pain, swelling, or any muscle pain. ENDOCRINE: Denies any polyuria or polydipsia. The rest of the 14-point review of systems is negative. Past Medical History Past Medical History: Coronary Artery Disease (CAD), Chest Pain / Angina, Heart Failure, Deep Vein Thrombosis (DVT), Hyperlipidemia, Hypertension, Myocardial Infarction ([place]), Prostate Disorder Additional Past Medical History / Comment(s): Coronary artery disease, aortic valve replacement with a prostatic aortic valve, chronic atrial fibrillation, pulmonary hypertension with evidence of right-sided heart failure, remote history of DVT back in 2006, hypertension, hyperlipidemia, BPH, prostate cancer , recurrent right-sided pleural effusion, sepsis in general 2018, recurrent thoracenteses along the right lung, Last Myocardial Infarction Date:: 2005? History of Any Multi-Drug Resistant Organisms: None Reported Past Surgical History: Appendectomy, Cardiac Valve Replacement, Cholecystectomy , Heart Catheterization, Heart Catheterization With Stent, Hernia Repair, Pacemaker, Prostate Surgery Additional Past Surgical History / Comment(s): aortic valve replacement, bilateral cataracts removal, penile implant x2, thoracentesis last one aug 2017 Past Anesthesia/Blood Transfusion Reactions: Previous Problems w/ Anesthesia Additional Past Anesthesia/Blood Transfusion Reaction / Comment(s): "one time BP dropped too low" Date of Last Stent Placement:: 2005 Type of Cardiac Device: Permanent Pacemaker Device Placement Date:: approx 12 yrs ago Past Psychological History: Anxiety Smoking Status: Former smoker Past Alcohol Use History: None Reported Past Drug Use History: None Reported - Past Family History Brother(s) Family Medical History: Cancer Sister(s) Family Medical History: Cancer Father Family Medical History: Cancer Additional Family Medical History / Comment(s): HEART PROLEMS AND VASUCLAR PROBLEMS HAD CABG Mother Family Medical History: Myocardial Infarction ([place]) Additional Family Medical History / Comment(s): HAD OPEN HEART SX. Medications and Allergies Home Medications Medication Instructions Recorded Confirmed Type Carvedilol 25 mg PO DAILY 06/19/15 11/23/17 History Ferrous Sulfate [Iron (65 MG 325 mg PO DAILY 06/19/15 11/23/17 History Elemental)] oxyCODONE HCL 15 mg PO BID PRN 06/19/15 11/23/17 History Multivitamins, Thera [Multivitamin 1 tab PO DAILY 04/13/16 11/23/17 History (formulary)] LORazepam [Ativan] 0.5 mg PO BID PRN 07/28/16 11/23/17 History Pantoprazole [Protonix] 40 mg PO QAM 07/28/16 11/23/17 History Sucralfate [Carafate] 1 gm PO BID-W/MEALS 07/28/16 11/23/17 History Ubidecarenone [Co Q-10] 200 mg PO DAILY 07/28/16 11/23/17 History Citalopram Hydrobromide [CeleXA] 20 mg PO DAILY 11/20/17 11/23/17 History Lovastatin [Mevacor] 20 mg PO HS 11/20/17 11/23/17 History Morphine Sulfate ER [Ms Contin] 15 mg PO Q12HR PRN 11/20/17 11/23/17 History Morphine Sulfate ER [Ms Contin] 30 mg PO Q12HR PRN 11/20/17 11/23/17 History Warfarin [Coumadin] 2 mg PO HS 11/20/17 11/23/17 History Warfarin [Coumadin] 5 mg PO HS 11/20/17 11/23/17 History traZODone HCL 100 mg PO HS 11/20/17 11/23/17 History Furosemide [Lasix] 40 mg PO BID #60 tablet 11/21/17 11/23/17 Rx Lisinopril [Zestril] 10 mg PO BID #60 tab 11/21/17 11/23/17 Rx Allergies Allergy/AdvReac Type Severity Reaction Status Date / Time No Known Allergies Allergy Verified 11/23/17 10:06 Physical Exam Vitals: Vital Signs Temp Pulse Pulse Resp BP BP Pulse Ox 11/23/17 14:15 97.7 F 60 18 165/72 98 11/23/17 13:51 97.7 F 60 18 165/72 98 11/23/17 13:26 97.3 F L 64 18 121/56 99 11/23/17 11:23 60 18 177/110 100 11/23/17 09:16 98.1 F 60 18 185/82 89 L Intake and Output 11/23/17 11/23/17 11/23/17 06:59 14:59 22:59 Other: Weight 74.843 kg PHYSICAL EXAMINATION: GENERAL: The patient is alert and oriented x3, not in any acute distress. Well developed, well nourished. HEENT: Pupils are round and equally reacting to light. EOMI. No scleral icterus. No conjunctival pallor. Normocephalic, atraumatic. No pharyngeal erythema. No thyromegaly. CARDIOVASCULAR: S1 and S2 present. No murmurs, rubs, or gallops. PULMONARY: Will expiratory wheezing was appreciated rhonchus breath sounds decreased breath sounds on the right inferior and posterior lung diaz. ABDOMEN: Soft, nontender, nondistended, normoactive bowel sounds. No palpable organomegaly. MUSCULOSKELETAL: No joint swelling or deformity. EXTREMITIES: No cyanosis, clubbing, or pedal edema. NEUROLOGICAL: Gross neurological examination did not reveal any focal deficits. SKIN: No rashes. Thrombosis Risk Factor Assmnt - Choose All That Apply Each Factor Represents 1 point: Heart failure (<1month) Each Risk Factor Represents 3 Points: Age 75 years or older Thrombosis Risk Factor Assessment Total Risk Factor Score: 4 Thrombosis Risk Factor Assessment Level: Moderate Risk Assessment and Plan Plan: -Pleural effusion on the right side patient does have history of chronic diastolic dysfunction also moderate to severe pulmonary hypertension patient will be continued on oral Lasix at this point of time ultrasound of the chest is being obtained for possible therapeutic and diagnostic thoracocentesis. -Chronic diastolic dysfunction with possibility of acute exacerbation. -Moderate pulmonary hypertension. -Aortic stenosis with the attic well the placement with bioprosthetic cow valve -atrial fibrillation: Patient is on Coumadin for that which is being held at this time. -Prior history of prostate cancer in remission. 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
[2017-11-23] MEDS: IPRATROPIUM-ALBUTEROL 3 ML NEB INHALATION SCH ×3 (15:48→19:57)
[2017-11-23] MEDS: SUCRALFATE 1 GM TAB PO SCH (16:03)
[2017-11-23] MEDS: AZITHROMYCIN 500 MG TAB PO SCH (16:03)
--- NOTE | 2017-11-23 16:24 | US ---
EXAMINATION TYPE: US chest DATE OF EXAM: 11/23/2017 COMPARISON: CT 11/20/2017 CLINICAL HISTORY: Recurrent right pleural effusion. EXAM MEASUREMENTS: Right Pleural Effusion fluid pocket: 5.5 cm Right skin to fluid thickness: 1.7 cm Right side marked for possible thoracentesis outside the dept. Pulmonologists are able to review the images in the patient?s EMR. IMPRESSIONS: Recurrent right pleural effusion measuring up to 5.5 cm in thickness with adjacent atele ctatic lung.
[2017-11-23] MEDS: FUROSEMIDE 40 MG TAB PO SCH (16:44)
[2017-11-23] MEDS: LORazepam 0.5 MG TAB PO PRN ×2 (16:44→21:12)
[2017-11-23] MEDS: LISINOPRIL 10 MG TAB PO SCH (20:59)
[2017-11-23] MEDS: guaiFENesin 600 MG TABLET.ER PO SCH (20:59)
[2017-11-23] MEDS: ATORVASTATIN 10 MG TAB PO SCH (23:06)
[2017-11-24] MEDS: LORazepam 0.5 MG TAB PO PRN ×2 (01:28→15:14)
[2017-11-24] MEDS: FUROSEMIDE 40 MG TAB PO SCH (06:15)
[2017-11-24] MEDS: SUCRALFATE 1 GM TAB PO SCH ×2 (06:15→17:05)
[2017-11-24 06:19] LABS: HCT 33.6 % (39.0-53.0); HGB 11.4 gm/dL (13.0-17.5); MCH 32.5 pg (25.0-35.0); MCHC 33.8 g/dL (31.0-37.0); MCV 95.9 fL (80.0-100.0); Mean Platelet Volume 6.7; Platelet Count 218 k/uL (150-450); RDW 14.3 % (11.5-15.5); WBC 7.4 k/uL (3.8-10.6)
[2017-11-24 06:28] LABS: INR 2.8 (<1.2); Prothrombin Time 24.8 sec (9.0-12.0)
[2017-11-24 06:37] LABS: ALT 38 U/L (21-72); AST 39 U/L (17-59); Albumin 3.8 g/dL (3.5-5.0); Alkaline Phosphatase 114 U/L (38-126); Anion Gap 11 mmol/L; Blood Urea Nitrogen 30 mg/dL (9-20); Calcium 8.7 mg/dL (8.4-10.2); Carbon Dioxide 29 mmol/L (22-30); Chloride 97 mmol/L (98-107); Glucose 103 mg/dL (74-99); Sodium 137 mmol/L (137-145); Total Bilirubin 0.9 mg/dL (0.2-1.3); Total Protein 6.9 g/dL (6.3-8.2)
[2017-11-24] MEDS: IPRATROPIUM-ALBUTEROL 3 ML NEB INHALATION SCH ×4 (07:51→20:16)
[2017-11-24] MEDS: guaiFENesin 600 MG TABLET.ER PO SCH ×2 (08:10→21:14)
[2017-11-24] MEDS: LISINOPRIL 10 MG TAB PO SCH ×2 (08:10→21:14)
[2017-11-24] MEDS: AZITHROMYCIN 500 MG TAB PO SCH (08:11)
[2017-11-24] MEDS: PANTOPRAZOLE 40 MG TABLET PO SCH (08:11)
[2017-11-24] MEDS: CARVEDILOL 12.5 MG TAB PO SCH (08:11)
[2017-11-24] MEDS: FERROUS SULFATE 325 MG TAB PO SCH (08:11)
[2017-11-24] MEDS: MULTIVITAMINS, THERA 1 EACH TAB PO SCH (08:11)
[2017-11-24] MEDS: CITALOPRAM HYDROBROMIDE 20 MG TAB PO SCH (08:11)
--- NOTE | 2017-11-24 08:15 | XR ---
EXAMINATION TYPE: XR chest 1V DATE OF EXAM: 11/24/2017 COMPARISON: 11/20/2017 HISTORY: Pleural effusion. Follow-up exam. TECHNIQUE: Single frontal view of the chest is obtained. FINDINGS: There is a similar partially loculated pleural effusion and right minor intrafissural flui d. Right lower lobe airspace disease has slightly worsened in the interim. Remainder of the lungs are clear. Cardiac silhouette is enlarged with postoperative changes of the chest and single lead left-s ided cardiac device. Osseous structures are grossly intact. IMPRESSION: 1. Similar-appearing small partially loculated right pleural effusion and right minor intrafissural f luid. 2. Worsening right basilar airspace disease that may represent pneumonia in appropriate clinical sett ing, atelectasis or less likely pulmonary edema.
--- NOTE | 2017-11-24 11:30 | P.PN ---
Subjective 81-year-old male admitted for cough possible chronic diastolic dysfunction with acute examination patient was started on IV Lasix and repeat ultralights tomorrow. Patient has a small pocket of the loculated pleural effusion on the right side about 5.5 cms this inhibitors as per the ultrasound of the chest. Will monitor on IV fluids repeat chest x-ray tomorrow. Patient can be transferred to [facility]. Patient is still complaining of cough. Patient has paratracheal lymphadenopathy which may need a mediastinoscopy a CT-guided biopsy as an outpatient. Constitutional: Denied any fatigue denied any fever. Cardio vascular: denied any chest pain, palpitations Gastrointestinal denied any nausea vomiting Pulmonary: Denied any shortness of breath Neurologic denied any new focal deficits Objective - Vital Signs Vital signs: Vital Signs Temp 97.6 F 11/24/17 08:12 Pulse 60 11/24/17 08:12 Resp 18 11/24/17 08:12 BP 180/77 11/24/17 08:12 Pulse Ox 97 11/24/17 08:12 Intake & Output 11/23/17 11/24/17 11/24/17 18:59 06:59 18:59 Intake Total 120 240 Balance 120 240 Weight 74.843 kg 74.5 kg Intake: Oral 120 240 Other: # Voids 1 2 # Bowel Movements 0 - Exam GENERAL: The patient is alert and oriented x3, not in any acute distress. Well developed, well nourished. HEENT: Pupils are round and equally reacting to light. EOMI. No scleral icterus. No conjunctival pallor. Normocephalic, atraumatic. No pharyngeal erythema. No thyromegaly. CARDIOVASCULAR: S1 and S2 present. No murmurs, rubs, or gallops. PULMONARY: Fairly good air entry at lung diaz his crackles improved. ABDOMEN: Soft, nontender, nondistended, normoactive bowel sounds. No palpable organomegaly. MUSCULOSKELETAL: No joint swelling or deformity. EXTREMITIES: No cyanosis, clubbing, or pedal edema. NEUROLOGICAL: Gross neurological examination did not reveal any focal deficits. SKIN: No rashes. - Labs CBC & Chem 7: 11/24/17 05:51 11/24/17 05:51 Labs: Abnormal Lab Results - Last 24 Hours (Table) 11/24/17 11/24/17 11/24/17 Range/Units 05:51 05:51 05:51 RBC 3.50 L (4.30-5.90) m/uL Hgb 11.4 L (13.0-17.5) gm/dL Hct 33.6 L (39.0-53.0) % PT 24.8 H (9.0-12.0) sec INR 2.8 H (<1.2) Chloride 97 L (98-107) mmol/L BUN 30 H (9-20) mg/dL Glucose 103 H (74-99) mg/dL Assessment and Plan Plan: -Pleural effusion on the right side patient does have history of chronic diastolic dysfunction also moderate to severe pulmonary hypertension patient will be switched to IV Lasix and the, we will monitor him overnight and repeat chest x-ray tomorrow -Chronic diastolic dysfunction with possibility of acute exacerbation. -Moderate pulmonary hypertension. -Aortic stenosis with the attic well the placement with bioprosthetic cow valve -atrial fibrillation: Patient is on Coumadin for that which is being held at this time. -Prior history of prostate cancer in remission. 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
[2017-11-24 12:01] LABS: Glucose,Whole Blood 110 mg/dL (75-99)
[2017-11-24] MEDS: FUROSEMIDE 10 MG/ML 4 ML VIAL IV SCH ×2 (12:18→21:13)
--- NOTE | 2017-11-24 13:19 | P.PN ---
Subjective Progress Note Date: 11/24/17 Principal diagnosis: Acute diastolic congestive heart failure and right-sided pleural effusion. This is a very pleasant 81-year-old gentleman who follows with Dr. Lundberg as his primary care physician. He has a known history of coronary artery disease, aortic valve stenosis with previous bypass surgery valve replacement, chronic atrial fibrillation status post permanent pacemaker implantation on oral anticoagulants, DVT of the left lower extremity, congestive heart failure, pulmonary hypertension. The patient also has a previous history of recurrent pleural effusions with initial thoracentesis in June 2017 with no fluid analysis completed, thoracentesis of the right lung again in August 2017 in [place]. He also has a history of sepsis with positive blood cultures requiring PICC line insertion and prolonged antibiotics. This too was while in [place] this year. He was admitted here on 11/20/2017 with complaints of increasing shortness of breath cough and congestion. He was found however to have recurrent right pleural effusion was seen and evaluated by Dr. Ovalle at that time. He felt as though the fluid was small and somewhat loculated and no repeat thoracentesis was performed. He subsequently recovered and was discharged home on 11/21/2017. He states he has had ongoing shortness of breath with cough and congestion. Earlier this morning he developed a bloody nose and sinus drainage and presented to [facility] emergency room for the same. Chest x-ray again showed evidence of pleural effusion and he was transferred here for further evaluation and treatment. He is seen on the selective care unit. He is currently sitting up in a chair at the bedside. He is awake and alert in no acute distress. He does have a loose nonproductive cough. No chills or night sweats. He is short of breath with minimal exertion. He is maintaining good O2 saturations in the high 90s on 2 L/m per nasal cannula. He's been afebrile. Hemodynamically stable. Influenza screen is negative. Patient was reevaluated today on 11/24/2017, patient is about the same, chest x- ray and ultrasound of the chest were both reviewed, there is a 5.5 cm pocket in the right pleural space that could be drained via thoracentesis. However considering the clinical history is mostly a history of congestive heart failure , I discussed with the admitting physician that it would be best to aggressively diurese the patient, repeat chest x-ray in a.m., and if there is no improvement I would consider a right-sided thoracentesis in the meantime we will recommend holding Coumadin. Patient is on diuretics, will be switched from oral Lasix to IV Lasix. INR is 2.8 today. Basic metabolic profile is normal. CBC is relatively normal. Vital screening is negative. Objective - Vital Signs Vital signs: Vital Signs Temp 97.6 F 11/24/17 11:57 Pulse 62 11/24/17 11:57 Resp 18 11/24/17 11:57 BP 149/68 11/24/17 11:57 Pulse Ox 97 11/24/17 11:57 Intake & Output 11/23/17 11/24/17 11/24/17 18:59 06:59 18:59 Intake Total 120 480 Balance 120 480 Weight 74.843 kg 74.5 kg Intake: Oral 120 480 Other: # Voids 1 2 2 # Bowel Movements 0 - Exam GENERAL EXAM: Alert, active, comfortable in no apparent distress. HEAD: Normocephalic. EYES: Normal reaction of pupils, equal size. NOSE: Clear with pink turbinates. THROAT: No erythema or exudates. NECK: No masses, no JVD. CHEST: No chest wall deformity. LUNGS: Equal air entry with few scattered rhonchi, crackles in the right posterior base, diminished. CVS: S1 and S2 normal with no audible murmur, regular rhythm. ABDOMEN: No hepatosplenomegaly, normal bowel sounds, no guarding or rigidity. SPINE: No scoliosis or deformity SKIN: No rashes CENTRAL NERVOUS SYSTEM: No focal deficits, tone is normal in all 4 extremities. EXTREMITIES: There is no peripheral edema. No clubbing, no cyanosis. Peripheral pulses are intact. - Labs CBC & Chem 7: 11/24/17 05:51 11/24/17 05:51 Labs: Abnormal Lab Results - Last 24 Hours (Table) 11/24/17 11/24/17 11/24/17 Range/Units 05:51 05:51 05:51 RBC 3.50 L (4.30-5.90) m/uL Hgb 11.4 L (13.0-17.5) gm/dL Hct 33.6 L (39.0-53.0) % PT 24.8 H (9.0-12.0) sec INR 2.8 H (<1.2) Chloride 97 L (98-107) mmol/L BUN 30 H (9-20) mg/dL Glucose 103 H (74-99) mg/dL POC Glucose (mg/dL) (75-99) mg/dL 11/24/17 Range/Units 11:48 RBC (4.30-5.90) m/uL Hgb (13.0-17.5) gm/dL Hct (39.0-53.0) % PT (9.0-12.0) sec INR (<1.2) Chloride (98-107) mmol/L BUN (9-20) mg/dL Glucose (74-99) mg/dL POC Glucose (mg/dL) 110 H (75-99) mg/dL Assessment and Plan Assessment: #1 Acute hypoxic respiratory failure secondary to recurrent right-sided pleural effusion. The patient has a history of recurrent right-sided pleural effusions of unclear etiology. No fluid analysis available. No pathology available. First one done June 2017. Second one done in January 2018 in [place]. The patient was found to have. Pericarinal lymph node measuring 2.5 x 1.7 cm. There is also abnormal anterior superior mediastinal lymph node just anterior to the left carotid artery measuring 1.8 x 1.4 cm. These were to be investigated in the outpatient setting. #2 History of diastolic congestive heart failure with significant pulmonary hypertension. #3 Aortic valve stenosis status post aortic valve replacement utilizing a bioprosthetic aortic valve. #4 Chronic atrial fibrillation anticoagulated with warfarin. #5 Cardiac arrhythmia requiring permanent pacemaker implantation. #6 Remote history of DVT in 2006, remains on anticoagulants. #7 Hypertension. #8 Hyperlipidemia. #9 History of prostate cancer. #10 Coronary artery disease. #11 Recent hospitalization for sepsis in August 2017 in [place]. #12 Chronic pain syndrome. #13 Anxiety/depression. Recommendation: Continue diuretics, hold Coumadin, repeat chest x-ray in a.m., if no significant improvement noted, consider right-sided thoracentesis which will be mostly diagnostic and therapeutic at the same time. We'll continue to follow. Time with Patient: Less than 30
[2017-11-24 16:53] LABS: Glucose,Whole Blood 116 mg/dL (75-99)
[2017-11-24] MEDS: ATORVASTATIN 10 MG TAB PO SCH (21:14)
[2017-11-24] MEDS: MORPHINE SULFATE ER 30 MG TABLET PO PRN (21:19)
[2017-11-24] MEDS ORDERED: LORazepam 1 MG TAB PO STA (21:24)
[2017-11-25] MEDS: SUCRALFATE 1 GM TAB PO SCH ×2 (06:39→16:42)
[2017-11-25 06:45] LABS: HCT 35.3 % (39.0-53.0); HGB 11.6 gm/dL (13.0-17.5); MCH 32.1 pg (25.0-35.0); MCHC 32.9 g/dL (31.0-37.0); MCV 97.6 fL (80.0-100.0); Mean Platelet Volume 6.9; Platelet Count 224 k/uL (150-450); RBC 3.61 m/uL (4.30-5.90); RDW 14.4 % (11.5-15.5); WBC 8.2 k/uL (3.8-10.6)
[2017-11-25 06:53] LABS: INR 1.8 (<1.2); Prothrombin Time 16.7 sec (9.0-12.0)
[2017-11-25 06:57] LABS: Anion Gap 11 mmol/L; Blood Urea Nitrogen 29 mg/dL (9-20); Carbon Dioxide 28 mmol/L (22-30); Chloride 97 mmol/L (98-107); Glucose 100 mg/dL (74-99); Sodium 136 mmol/L (137-145)
--- NOTE | 2017-11-25 07:38 | XR ---
EXAMINATION TYPE: XR chest 1V DATE OF EXAM: 11/25/2017 COMPARISON: 11/24/2017 INDICATION: CHF TECHNIQUE: Single frontal view of the chest is obtained. FINDINGS: The heart size is normal. The pulmonary vasculature is normal. There is a right lower lobe infiltrate. Small right pleural effusion is present. Findings are similar to prior exam. Pacemaker overlies left chest. Sternotomy wires are in the midline. IMPRESSION: 1. Right lower lobe infiltrate with a small right pleural effusion. Correlate for pneumonia. Continue d Follow-up is recommended.
[2017-11-25] MEDS: IPRATROPIUM-ALBUTEROL 3 ML NEB INHALATION SCH ×3 (08:24→15:45)
[2017-11-25] MEDS: LISINOPRIL 10 MG TAB PO SCH (08:42)
[2017-11-25] MEDS: CARVEDILOL 12.5 MG TAB PO SCH (08:42)
[2017-11-25] MEDS: AZITHROMYCIN 500 MG TAB PO SCH (08:42)
[2017-11-25] MEDS: guaiFENesin 600 MG TABLET.ER PO SCH (08:42)
[2017-11-25] MEDS: MULTIVITAMINS, THERA 1 EACH TAB PO SCH (08:42)
[2017-11-25] MEDS: CITALOPRAM HYDROBROMIDE 20 MG TAB PO SCH (08:42)
[2017-11-25] MEDS: FUROSEMIDE 10 MG/ML 4 ML VIAL IV SCH (08:42)
[2017-11-25] MEDS: PANTOPRAZOLE 40 MG TABLET PO SCH (08:42)
[2017-11-25] MEDS: FERROUS SULFATE 325 MG TAB PO SCH (08:42)
[2017-11-25 08:45] VITALS: RESP 16; TEMP 96
[2017-11-25] MEDS: MORPHINE SULFATE ER 30 MG TABLET PO PRN (08:52)
[2017-11-25] MEDS: LORazepam 0.5 MG TAB PO PRN (13:14)
--- NOTE | 2017-11-25 14:19 | P.PN ---
Subjective Progress Note Date: 11/25/17 Principal diagnosis: Dyspnea secondary to recurrent pleural effusions This is a very pleasant 81-year-old gentleman who follows with Dr. Lundberg as his primary care physician. He has a known history of coronary artery disease, aortic valve stenosis with previous bypass surgery valve replacement, chronic atrial fibrillation status post permanent pacemaker implantation on oral anticoagulants, DVT of the left lower extremity, congestive heart failure, pulmonary hypertension. The patient also has a previous history of recurrent pleural effusions with initial thoracentesis in June 2017 with no fluid analysis completed, thoracentesis of the right lung again in August 2017 in [place]. He also has a history of sepsis with positive blood cultures requiring PICC line insertion and prolonged antibiotics. This too was while in [place] this year. He was admitted here on 11/20/2017 with complaints of increasing shortness of breath cough and congestion. He was found however to have recurrent right pleural effusion was seen and evaluated by Dr. Ovalle at that time. He felt as though the fluid was small and somewhat loculated and no repeat thoracentesis was performed. He subsequently recovered and was discharged home on 11/21/2017. He states he has had ongoing shortness of breath with cough and congestion. Earlier this morning he developed a bloody nose and sinus drainage and presented to [facility] emergency room for the same. Chest x-ray again showed evidence of pleural effusion and he was transferred here for further evaluation and treatment. He is seen on the selective care unit. He is currently sitting up in a chair at the bedside. He is awake and alert in no acute distress. He does have a loose nonproductive cough. No chills or night sweats. He is short of breath with minimal exertion. He is maintaining good O2 saturations in the high 90s on 2 L/m per nasal cannula. He's been afebrile. Hemodynamically stable. Influenza screen is negative. Patient was reevaluated today on 11/24/2017, patient is about the same, chest x- ray and ultrasound of the chest were both reviewed, there is a 5.5 cm pocket in the right pleural space that could be drained via thoracentesis. However considering the clinical history is mostly a history of congestive heart failure , I discussed with the admitting physician that it would be best to aggressively diurese the patient, repeat chest x-ray in a.m., and if there is no improvement I would consider a right-sided thoracentesis in the meantime we will recommend holding Coumadin. Patient is on diuretics, will be switched from oral Lasix to IV Lasix. INR is 2.8 today. Basic metabolic profile is normal. CBC is relatively normal. Vital screening is negative. The patient is seen again today 11/25/2017 in follow-up on the selective care unit. He is currently sitting up in a chair at the bedside. He is awake and alert in no acute distress. He is now ambulating in the hallway without any significant dyspnea on exertion. He is maintaining good O2 saturations in the 90s on room air. He's been afebrile. Hemodynamically stable. White count 8.2. Hemoglobin 11.6. Creatinine 0.79. INR 1.8. He is continued on Lasix 40 mg IV push every 12 hours. He is down 4 kg. Chest x-ray reveals right lower lobe infiltrate with just a small right pleural effusion. Objective - Vital Signs Vital signs: Vital Signs Temp 96 F L 11/25/17 08:00 Pulse 60 11/25/17 12:00 Resp 16 11/25/17 12:00 BP 147/68 11/25/17 12:00 Pulse Ox 97 11/25/17 12:00 Intake & Output 11/24/17 11/25/17 11/25/17 18:59 06:59 18:59 Intake Total 720 480 Balance 720 480 Weight 70.7 kg Intake: Oral 720 480 Other: Voiding Method Toilet Toilet # Voids 2 1 2 - Exam GENERAL EXAM: Alert, active, comfortable in no apparent distress. HEAD: Normocephalic. EYES: Normal reaction of pupils, equal size. NOSE: Clear with pink turbinates. THROAT: No erythema or exudates. NECK: No masses, no JVD. CHEST: No chest wall deformity. LUNGS: Equal air entry with crackles in the bilateral posterior bases. CVS: S1 and S2 normal with no audible murmur, regular rhythm. ABDOMEN: No hepatosplenomegaly, normal bowel sounds, no guarding or rigidity. SPINE: No scoliosis or deformity SKIN: No rashes CENTRAL NERVOUS SYSTEM: No focal deficits, tone is normal in all 4 extremities. EXTREMITIES: There is no peripheral edema. No clubbing, no cyanosis. Peripheral pulses are intact. - Labs CBC & Chem 7: 11/25/17 06:16 11/25/17 06:16 Labs: Abnormal Lab Results - Last 24 Hours (Table) 11/24/17 11/25/17 11/25/17 Range/Units 16:48 06:16 06:16 RBC 3.61 L (4.30-5.90) m/uL Hgb 11.6 L (13.0-17.5) gm/dL Hct 35.3 L (39.0-53.0) % PT 16.7 H (9.0-12.0) sec INR 1.8 H (<1.2) Sodium (137-145) mmol/L Chloride (98-107) mmol/L BUN (9-20) mg/dL Glucose (74-99) mg/dL POC Glucose (mg/dL) 116 H (75-99) mg/dL 11/25/17 Range/Units 06:16 RBC (4.30-5.90) m/uL Hgb (13.0-17.5) gm/dL Hct (39.0-53.0) % PT (9.0-12.0) sec INR (<1.2) Sodium 136 L (137-145) mmol/L Chloride 97 L (98-107) mmol/L BUN 29 H (9-20) mg/dL Glucose 100 H (74-99) mg/dL POC Glucose (mg/dL) (75-99) mg/dL Assessment and Plan Assessment: Impression: #1 Acute hypoxic respiratory failure secondary to recurrent right-sided pleural effusion. The patient has a history of recurrent right-sided pleural effusions of unclear etiology. No fluid analysis available. No pathology available. First one done June 2017. Second one done in January 2018 in [place]. The patient was found to have. Pericarinal lymph node measuring 2.5 x 1.7 cm. There is also abnormal anterior superior mediastinal lymph node just anterior to the left carotid artery measuring 1.8 x 1.4 cm. These were to be investigated in the outpatient setting. #2 History of diastolic congestive heart failure with significant pulmonary hypertension. #3 Aortic valve stenosis status post aortic valve replacement utilizing a bioprosthetic aortic valve. #4 Chronic atrial fibrillation anticoagulated with warfarin. #5 Cardiac arrhythmia requiring permanent pacemaker implantation. #6 Remote history of DVT in 2006, remains on anticoagulants. #7 Hypertension. #8 Hyperlipidemia. #9 History of prostate cancer. #10 Coronary artery disease. #11 Recent hospitalization for sepsis in August 2017 in [place]. #12 Chronic pain syndrome. #13 Anxiety/depression. Plan: The patient was seen and evaluated by Dr. Ballard. The patient has improved clinically and radiographically. No plans for thoracentesis at this time. Resume warfarin. We will continue bronchodilators, Mucinex and empiric antibiotics. The patient will also need further workup regarding the pericardial renal and superior mediastinal lymphadenopathy. Possibly a PET scan in the outpatient setting versus CT-guided FNA versus mediastinoscopy. We will continue to follow and make further recommendations based on his clinical status. I, the cosigning physician, performed a history & physical examination of the patient. Lungs sounds with faint, crackles in the right posterior base. Maintaining good O2 saturations in the 90s on room air. I discussed the assessment and plan of care with my nurse practitioner, Margarita Soto. I attest to the above note as dictated by her.
[2017-11-25 16:46] VITALS: BP 161/73; PULSE 56
--- NOTE | 2017-11-25 17:42 | P.DS ---
Providers Date of admission: 11/23/17 11:55 Expected date of discharge: 11/25/17 Attending physician: Drew Robbins Consults: 11/23/17 11:21 Consult Physician Routine Consulting Provider: Guillaume Ballard Consult Reason/Comments: known Do you want consulting provider notified?: Yes Primary care physician: [facility] Course: Final Diagnoses: -Pleural effusion on the right side patient does have history of chronic diastolic dysfunction also moderate to severe pulmonary hypertension -Chronic diastolic dysfunction with possibility of acute exacerbation. -Moderate pulmonary hypertension. -Aortic stenosis with the attic well the placement with bioprosthetic cow valve -atrial fibrillation: Patient is on Coumadin -Prior history of prostate cancer in remission. 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 Evaluated by pulmonary. Aggressively diuresed. Follow-up chest x-ray reporting right lower lobe infiltrate with small right pleural effusion. No thoracentesis at this time. Significant clinical improvement. Patient has paratracheal lymphadenopathy which may need a mediastinoscopy a CT-guided biopsy as an outpatient. Cleared by pulmonary for discharge. Patient is being discharged home in a stable condition with guarded prognosis. GENERAL: The patient is alert and oriented x3, not in any acute distress. Well developed, well nourished. HEENT: Pupils are round and equally reacting to light. EOMI. No scleral icterus. No conjunctival pallor. Normocephalic, atraumatic. No pharyngeal erythema. No thyromegaly. CARDIOVASCULAR: S1 and S2 present. No murmurs, rubs, or gallops. PULMONARY: Fairly good air entry at lung diaz his crackles improved. ABDOMEN: Soft, nontender, nondistended, normoactive bowel sounds. No palpable organomegaly. MUSCULOSKELETAL: No joint swelling or deformity. EXTREMITIES: No cyanosis, clubbing, or pedal edema. NEUROLOGICAL: Gross neurological examination did not reveal any focal deficits. SKIN: No rashes. The impression and plan of care has been dictated as directed. : I performed a history and examination of this patient, discussed the same with the dictator. I agree with the dictator's note ,documented as a scribe. Any additional findings or plans will be noted. Time taken: 35 minutes Patient Condition at Discharge: Stable Plan - Discharge Summary Discharge Rx Participant: No New Discharge Prescriptions: New Azithromycin [Zithromax] 500 mg PO DAILY #3 tab guaiFENesin [Mucinex] 1,200 mg PO Q12HR tablet.er Continue Ferrous Sulfate [Iron (65 MG Elemental)] 325 mg PO DAILY Carvedilol 25 mg PO DAILY oxyCODONE HCL 15 mg PO BID PRN PRN Reason: Pain Multivitamins, Thera [Multivitamin (formulary)] 1 tab PO DAILY LORazepam [Ativan] 0.5 mg PO BID PRN PRN Reason: Anxiety Pantoprazole [Protonix] 40 mg PO QAM Ubidecarenone [Co Q-10] 200 mg PO DAILY Sucralfate [Carafate] 1 gm PO BID-W/MEALS Citalopram Hydrobromide [CeleXA] 20 mg PO DAILY Lovastatin [Mevacor] 20 mg PO HS Morphine Sulfate ER [Ms Contin] 30 mg PO Q12HR PRN PRN Reason: Pain Morphine Sulfate ER [Ms Contin] 15 mg PO Q12HR PRN PRN Reason: Pain traZODone HCL 100 mg PO HS Warfarin [Coumadin] 5 mg PO HS Warfarin [Coumadin] 2 mg PO HS Furosemide [Lasix] 40 mg PO BID #60 tablet Lisinopril [Zestril] 10 mg PO BID #60 tab Discharge Medication List Carvedilol 25 mg PO DAILY 06/19/15 [History] Ferrous Sulfate [Iron (65 MG Elemental)] 325 mg PO DAILY 06/19/15 [History] oxyCODONE HCL 15 mg PO BID PRN 06/19/15 [History] Multivitamins, Thera [Multivitamin (formulary)] 1 tab PO DAILY 04/13/16 [History ] LORazepam [Ativan] 0.5 mg PO BID PRN 07/28/16 [History] Pantoprazole [Protonix] 40 mg PO QAM 07/28/16 [History] Sucralfate [Carafate] 1 gm PO BID-W/MEALS 07/28/16 [History] Ubidecarenone [Co Q-10] 200 mg PO DAILY 07/28/16 [History] Citalopram Hydrobromide [CeleXA] 20 mg PO DAILY 11/20/17 [History] Lovastatin [Mevacor] 20 mg PO HS 11/20/17 [History] Morphine Sulfate ER [Ms Contin] 15 mg PO Q12HR PRN 11/20/17 [History] Morphine Sulfate ER [Ms Contin] 30 mg PO Q12HR PRN 11/20/17 [History] Warfarin [Coumadin] 2 mg PO HS 11/20/17 [History] Warfarin [Coumadin] 5 mg PO HS 11/20/17 [History] traZODone HCL 100 mg PO HS 11/20/17 [History] Furosemide [Lasix] 40 mg PO BID #60 tablet 11/21/17 [Rx] Lisinopril [Zestril] 10 mg PO BID #60 tab 11/21/17 [Rx] Azithromycin [Zithromax] 500 mg PO DAILY #3 tab 11/25/17 [Rx] guaiFENesin [Mucinex] 1,200 mg PO Q12HR tablet.er 11/25/17 [Rx] Follow up Appointment(s)/Referral(s): Guillaume Ballard MD [STAFF PHYSICIAN] - 2 Weeks (Office is closed. Please call to make appointment) [facility], [NON-STAFF] - As Needed Brayden Lundberg MD [Primary Care Provider] - 3 Days (Office is closed. Please call to make appointment) Ambulatory/Diagnostic Orders: Prothrombin Time INR [LAB.AMB] Time Frame: 11/30/17, Location: Determined By Patient Patient Instructions/Handouts: Heart Failure (DC), Heart Healthy Diet (DC) Activity/Diet/Wound Care/Special Instructions: Activity: Limited until follow up Discharge Disposition: HOME WITH HOME HEALTH SERVICES
--- NOTE | 2017-12-17 14:51 | CDI ---
Last Revision, July 2017 Documentation Clarification Form Date: 12/17/17 From: Sabrina Wang Phone: If you have a question regarding this query, please contact Brittani Torres at [phone] between 8am and 5pm Admit Date: 11/23/2017 11:55:00 AM Patient Name: Felton Mckee Visit Number: [id number] Discharge Date: 11/25/17 ATTENTION: The Clinical Documentation Specialists (CDI) and [facility] Coding Staff appreciate your assistance in clarifying documentation. Please respond to the clarification below the line at the bottom and electronically sign. The CDI & [facility] Coding staff will review the response and follow-up if needed. Please note: Queries are made part of the Legal Health Record. If you have any questions, please contact the author of this message via ITS. Dr. Silke Robbins The patient presented with the following respiratory symptoms pleural effusion on the right, excessive phlegm, rhonchus breath sounds. Acute hypoxic respiratory failure is documented in Dr. Ballard's consult note and 11/24 & 11/25 progress notes but not in the discharge summary. History/Risk Factors: Patient has a history of diastolic CHF, hypertension and pulmonary hypertension. Tobacco use: Former smoker Home oxygen: None Clinical indicators: Increasing shortness of breath, cough and congestion. Vital signs: On admssion: T. 98.1, P. 60, R. 18, BP 185/82 Pulse oximetry: 89 Lung/Breathing assessment: Expiratory wheezing, rhonchus breath sounds and decreased breath sounds on the right inferior and posterior lung diaz. Treatment: Breathing tx: Duoneb Continuous Pulse ox: Pulse ox from 89 to 100 O2: 2 lpm per NC In your professional opinion, can you please clarify if acute respiratory failure was? Ruled In Ruled Out Other Unable to Determine In my opinion there is no acute respiratory failure, appropriate documentation was dictated already in my note MTDD
== END 2017-11-25 18:28 | disposition home health service (06) | DRG 293 ==
LOC: EC 09:14 → 6SEL 11:55
PROVIDERS: ADMIT Hospitalist; ATTEND Hospitalist
DX: I11.0 Hypertensive heart disease with heart failure (principal); G62.9 Polyneuropathy, unspecified; I27.20 Pulmonary hypertension, unspecified; I48.2 Chronic atrial fibrillation; E78.5 Hyperlipidemia, unspecified; F32.9 Major depressive disorder, single episode, unspecified; F41.9 Anxiety disorder, unspecified; G89.4 Chronic pain syndrome; I50.33 Acute on chronic diastolic (congestive) heart failure; I25.10 Atherosclerotic heart disease of native coronary artery without angina pectoris; I25.2 Old myocardial infarction; N40.0 Benign prostatic hyperplasia without lower urinary tract symptoms; R04.0 Epistaxis; M54.5 Low back pain; R59.1 Generalized enlarged lymph nodes; Z79.01 Long term (current) use of anticoagulants; Z79.899 Other long term (current) drug therapy; Z95.3 Presence of xenogenic heart valve; Z95.0 Presence of cardiac pacemaker; Z87.891 Personal history of nicotine dependence; Z86.718 Personal history of other venous thrombosis and embolism; Z85.46 Personal history of malignant neoplasm of prostate; Z90.49 Acquired absence of other specified parts of digestive tract; Z98.42 Cataract extraction status, left eye; Z98.41 Cataract extraction status, right eye; Z96.1 Presence of intraocular lens; Z95.5 Presence of coronary angioplasty implant and graft; Z82.49 Family history of ischemic heart disease and other diseases of the circulatory system; Z80.9 Family history of malignant neoplasm, unspecified
CPT/HCPCS: 71045; 76604; 80048; 80053; 85027; 85610; 87502; 94640; 94760; 99285

== ENCOUNTER 2018-02-05 17:24 | Inpatient (IN) | payer MEDICARE ==
[2018-02-05] MEDS ORDERED: SODIUM CHLORIDE 0.9% 1,000 ML IV STA (17:32)
[2018-02-05] MEDS ORDERED: IPRATROPIUM-ALBUTEROL 3 ML NEB INHALATION STA ×2 (17:32→19:42)
[2018-02-05 18:04] LABS: Basophils % (A) 0 %; Eosinophils # (A) 0.1 k/uL (0-0.7); Eosinophils % (A) 1 %; HCT 36.9 % (39.0-53.0); HGB 12.6 gm/dL (13.0-17.5); Lymphocytes # (A) 1.3 k/uL (1.0-4.8); Lymphocytes % (A) 13 %; MCH 33.8 pg (25.0-35.0); MCHC 34.1 g/dL (31.0-37.0); MCV 99.1 fL (80.0-100.0); Mean Platelet Volume 6.8; Monocytes # (A) 0.6 k/uL (0-1.0); Monocytes % (A) 6 %; Neutrophils # (A) 7.5 k/uL (1.3-7.7); Neutrophils % (A) 78 %; Platelet Count 226 k/uL (150-450); RBC 3.72 m/uL (4.30-5.90); RDW 14.4 % (11.5-15.5); WBC 9.7 k/uL (3.8-10.6)
--- NOTE | 2018-02-05 18:08 | ED ---
General Adult HPI - General Chief complaint: Shortness of Breath Stated complaint: JOSELO, POSS PNEUMONIA Time Seen by Provider: 02/05/18 17:32 Source: patient, RN notes reviewed, old records reviewed Mode of arrival: ambulatory Limitations: no limitations - History of Present Illness Initial comments: This is a 2-year-old male the ER for evaluation. Patient resents a for evaluation regarding shortness of breath. Patient has history of lung disease heart disease. Patient was treated outpatient for pneumonia, progressively worsening for the past 2 days. No recent travel history no sick contacts no recent hospitalizations. Patient denies active fever. No chest pain - Related Data Home Medications Medication Instructions Recorded Confirmed Carvedilol 25 mg PO DAILY 06/19/15 02/05/18 Ferrous Sulfate [Iron (65 MG 325 mg PO DAILY 06/19/15 02/05/18 Elemental)] oxyCODONE HCL 15 mg PO BID PRN 06/19/15 02/05/18 LORazepam [Ativan] 0.5 mg PO BID PRN 07/28/16 02/05/18 Pantoprazole [Protonix] 40 mg PO QAM 07/28/16 02/05/18 Sucralfate [Carafate] 1 gm PO BID-W/MEALS 07/28/16 02/05/18 Ubidecarenone [Co Q-10] 200 mg PO DAILY 07/28/16 02/05/18 Lovastatin [Mevacor] 20 mg PO HS 11/20/17 02/05/18 Morphine Sulfate ER [Ms Contin] 30 mg PO Q12HR 11/20/17 02/05/18 Warfarin [Coumadin] 2 mg PO HS 11/20/17 02/05/18 Warfarin [Coumadin] 5 mg PO HS 11/20/17 02/05/18 traZODone HCL 100 mg PO HS 11/20/17 02/05/18 Amoxicillin 500 mg PO Q8H 02/05/18 02/05/18 Citalopram Hydrobromide [CeleXA] 10 mg PO DAILY 02/05/18 02/05/18 Promethazine [Phenergan] 12.5 mg PO Q4HR PRN 02/05/18 02/05/18 Previous Rx's Medication Instructions Recorded Furosemide [Lasix] 40 mg PO BID #60 tablet 11/21/17 Allergies Allergy/AdvReac Type Severity Reaction Status Date / Time No Known Allergies Allergy Verified 02/05/18 17:38 Review of Systems ROS Statement: Those systems with pertinent positive or pertinent negative responses have been documented in the HPI. ROS Other: All systems not noted in ROS Statement are negative. Past Medical History Past Medical History: Coronary Artery Disease (CAD), Chest Pain / Angina, Heart Failure, Deep Vein Thrombosis (DVT), Hyperlipidemia, Hypertension, Myocardial Infarction ([place]), Prostate Disorder Additional Past Medical History / Comment(s): Coronary artery disease, aortic valve replacement with a prostatic aortic valve, chronic atrial fibrillation, pulmonary hypertension with evidence of right-sided heart failure, remote history of DVT back in 2006, hypertension, hyperlipidemia, BPH, prostate cancer , recurrent right-sided pleural effusion, sepsis in general 2018, recurrent thoracenteses along the right lung, Last Myocardial Infarction Date:: 2005? History of Any Multi-Drug Resistant Organisms: None Reported Past Surgical History: Appendectomy, Cardiac Valve Replacement, Cholecystectomy , Heart Catheterization, Heart Catheterization With Stent, Hernia Repair, Pacemaker, Prostate Surgery Additional Past Surgical History / Comment(s): aortic valve replacement, bilateral cataracts removal, penile implant x2, thoracentesis last one aug 2017 Past Anesthesia/Blood Transfusion Reactions: Previous Problems w/ Anesthesia Additional Past Anesthesia/Blood Transfusion Reaction / Comment(s): "one time BP dropped too low" Date of Last Stent Placement:: 2005 Type of Cardiac Device: Permanent Pacemaker Device Placement Date:: approx 12 yrs ago Past Psychological History: Anxiety Smoking Status: Former smoker Past Alcohol Use History: None Reported Past Drug Use History: None Reported - Past Family History Brother(s) Family Medical History: Cancer Sister(s) Family Medical History: Cancer Father Family Medical History: Cancer Additional Family Medical History / Comment(s): HEART PROLEMS AND VASUCLAR PROBLEMS HAD CABG Mother Family Medical History: Myocardial Infarction ([place]) Additional Family Medical History / Comment(s): HAD OPEN HEART SX. General Exam Limitations: no limitations General appearance: alert, in no apparent distress Head exam: Present: atraumatic, normocephalic, normal inspection Eye exam: Present: normal appearance, PERRL, EOMI. Absent: scleral icterus, conjunctival injection, periorbital swelling ENT exam: Present: normal exam, mucous membranes moist Neck exam: Present: normal inspection. Absent: tenderness, meningismus, lymphadenopathy Respiratory exam: Present: normal lung sounds bilaterally, wheezes, accessory muscle use, decreased breath sounds, prolonged expiratory. Absent: respiratory distress, rales, rhonchi, stridor Cardiovascular Exam: Present: regular rate, normal rhythm, normal heart sounds. Absent: systolic murmur, diastolic murmur, rubs, gallop, clicks GI/Abdominal exam: Present: soft, normal bowel sounds. Absent: distended, tenderness, guarding, rebound, rigid Extremities exam: Present: normal inspection, full ROM, normal capillary refill. Absent: tenderness, pedal edema, joint swelling, calf tenderness Back exam: Present: normal inspection Neurological exam: Present: alert, oriented X3, CN II-XII intact Psychiatric exam: Present: normal affect, normal mood Skin exam: Present: warm, dry, intact, normal color. Absent: rash Course Vital Signs 02/05/18 02/05/18 02/05/18 17:29 17:41 17:49 Temperature 98.5 F Pulse Rate 60 63 Respiratory 18 16 18 Rate Blood Pressure 184/81 O2 Sat by Pulse 93 L Oximetry 02/05/18 02/05/18 17:51 18:39 Temperature Pulse Rate 60 59 L Respiratory 16 18 Rate Blood Pressure 178/79 O2 Sat by Pulse 98 Oximetry - Reevaluation(s) Reevaluation #1: 02/05/18 19:48 Medical records thoroughly reviewed including outpatient antibiotic, amoxicillin Reevaluation #2: 02/05/18 19:48 Patient has mild to minimal improvement in breathing treatment EKG Findings - EKG Comments: EKG Findings:: EKG shows sinus rhythm rate of 60, QRS 190, QTc 562 Medical Decision Making - Medical Decision Making 82 male the ER for evaluation, outpatient treatment for pneumonia with worsening , patient's breathing is worsening. Patient does feel mildly improvement with breathing treatment, will not for continued breathing treatments, IV antibiotics - Lab Data Result diagrams: 02/05/18 17:48 02/05/18 17:48 Lab Results 02/05/18 02/05/18 02/05/18 Range/Units 17:48 17:48 17:48 WBC 9.7 (3.8-10.6) k/uL RBC 3.72 L (4.30-5.90) m/uL Hgb 12.6 L (13.0-17.5) gm/dL Hct 36.9 L (39.0-53.0) % MCV 99.1 (80.0-100.0) fL MCH 33.8 (25.0-35.0) pg MCHC 34.1 (31.0-37.0) g/dL RDW 14.4 (11.5-15.5) % Plt Count 226 (150-450) k/uL Neutrophils % 78 % Lymphocytes % 13 % Monocytes % 6 % Eosinophils % 1 % Basophils % 0 % Neutrophils # 7.5 (1.3-7.7) k/uL Lymphocytes # 1.3 (1.0-4.8) k/uL Monocytes # 0.6 (0-1.0) k/uL Eosinophils # 0.1 (0-0.7) k/uL Basophils # 0.0 (0-0.2) k/uL PT (9.0-12.0) sec INR (<1.2) APTT (22.0-30.0) sec Sodium 135 L (137-145) mmol/L Potassium 5.0 (3.5-5.1) mmol/L Chloride 96 L (98-107) mmol/L Carbon Dioxide 25 (22-30) mmol/L Anion Gap 14 mmol/L BUN 36 H (9-20) mg/dL Creatinine 1.06 (0.66-1.25) mg/dL Est GFR (CKD-EPI)AfAm 76 (>60 ml/min/1.73 sqM) Est GFR (CKD-EPI)NonAf 66 (>60 ml/min/1.73 sqM) Glucose 139 H (74-99) mg/dL Calcium 9.1 (8.4-10.2) mg/dL Magnesium 2.2 (1.6-2.3) mg/dL Total Bilirubin 1.0 (0.2-1.3) mg/dL AST 50 (17-59) U/L ALT 38 (21-72) U/L Alkaline Phosphatase 113 (38-126) U/L Total Creatine Kinase 52 L (55-170) U/L CK-MB (CK-2) 1.1 (0.0-2.4) ng/mL CK-MB (CK-2) Rel Index 2.1 Troponin I 0.022 (0.000-0.034) ng/mL NT-Pro-B Natriuret Pep pg/mL Total Protein 7.6 (6.3-8.2) g/dL Albumin 4.6 (3.5-5.0) g/dL 02/05/18 02/05/18 Range/Units 17:48 17:48 WBC (3.8-10.6) k/uL RBC (4.30-5.90) m/uL Hgb (13.0-17.5) gm/dL Hct (39.0-53.0) % MCV (80.0-100.0) fL MCH (25.0-35.0) pg MCHC (31.0-37.0) g/dL RDW (11.5-15.5) % Plt Count (150-450) k/uL Neutrophils % % Lymphocytes % % Monocytes % % Eosinophils % % Basophils % % Neutrophils # (1.3-7.7) k/uL Lymphocytes # (1.0-4.8) k/uL Monocytes # (0-1.0) k/uL Eosinophils # (0-0.7) k/uL Basophils # (0-0.2) k/uL PT 25.0 H (9.0-12.0) sec INR 2.8 H (<1.2) APTT 31.1 H (22.0-30.0) sec Sodium (137-145) mmol/L Potassium (3.5-5.1) mmol/L Chloride (98-107) mmol/L Carbon Dioxide (22-30) mmol/L Anion Gap mmol/L BUN (9-20) mg/dL Creatinine (0.66-1.25) mg/dL Est GFR (CKD-EPI)AfAm (>60 ml/min/1.73 sqM) Est GFR (CKD-EPI)NonAf (>60 ml/min/1.73 sqM) Glucose (74-99) mg/dL Calcium (8.4-10.2) mg/dL Magnesium (1.6-2.3) mg/dL Total Bilirubin (0.2-1.3) mg/dL AST (17-59) U/L ALT (21-72) U/L Alkaline Phosphatase (38-126) U/L Total Creatine Kinase (55-170) U/L CK-MB (CK-2) (0.0-2.4) ng/mL CK-MB (CK-2) Rel Index Troponin I (0.000-0.034) ng/mL NT-Pro-B Natriuret Pep 2640 pg/mL Total Protein (6.3-8.2) g/dL Albumin (3.5-5.0) g/dL - Radiology Data Radiology results: report reviewed (Chest x-ray shows CHF likely underlying pneumonia), image reviewed Disposition Clinical Impression: Acute exacerbation of chronic obstructive airways disease, Community acquired pneumonia, Failure of outpatient treatment, Congestive heart failure Disposition: ADMITTED IP TO THIS HOSP Condition: Fair Referrals: Brayden Lundberg MD [Primary Care Provider] - 1-2 days
[2018-02-05 18:16] LABS: INR 2.8 (<1.2); Partial Thromboplastin Time 31.1 sec (22.0-30.0)
[2018-02-05 18:22] LABS: Albumin 4.6 g/dL (3.5-5.0); Calcium 9.1 mg/dL (8.4-10.2); Magnesium 2.2 mg/dL (1.6-2.3); Total Protein 7.6 g/dL (6.3-8.2)
[2018-02-05 18:46] LABS: Creatine Kinase MB 1.1 ng/mL (0.0-2.4); Troponin I 0.022 ng/mL (0.000-0.034)
--- NOTE | 2018-02-05 19:17 | XR ---
EXAMINATION TYPE: XR chest 2V DATE OF EXAM: 02/05/2018 COMPARISON: 12/09/2017 HISTORY: Cough difficulty breathing TECHNIQUE: Frontal and lateral views of the chest are obtained. FINDINGS: Heart is enlarged. There is prominent vascular congestion. There is blunting of right cost ophrenic angle. There are sternal wires. There is left axillary pacemaker with the lead tip in the ri ght ventricle. There are chest leads. IMPRESSION: Mild congestive heart failure with chronic right pleural effusion. Right lower lobe pneu monia is possible. No significant change.
[2018-02-05] MEDS ORDERED: LEVOFLOXACIN 750MG-D5W PMX 750 MG in DEXTROSE/WATER 1 150ML.BAG IVPB STA ×2 (19:42→20:49)
[2018-02-05] MEDS ORDERED: PNEUMONIA PROTOCOL UTILIZED 1 EACH MISC PO PRN (19:42)
[2018-02-05] MEDS ORDERED: PIPERACILLIN-TAZOBACTAM 3.375 GM in DEXTROSE/WATER 1 50ML.BAG IVPB STA (19:42)
[2018-02-05] MEDS ORDERED: SODIUM CHLORIDE 0.9% 1,000 ML IV SCH (19:45)
[2018-02-05] MEDS ORDERED: FUROSEMIDE 10 MG/ML 4 ML VIAL IV STA (20:04)
[2018-02-05] MEDS ORDERED: AZITHROMYCIN 500 MG in SODIUM CHLORIDE 0.9% 250 ML IVPB STA (20:16)
[2018-02-05] MEDS ORDERED: LORazepam 0.5 MG TAB PO PRN (20:18)
[2018-02-05] MEDS ORDERED: ACETAMINOPHEN TAB 325 MG TAB PO PRN (20:20)
[2018-02-05] MEDS ORDERED: IPRATROPIUM-ALBUTEROL 3 ML NEB INHALATION PRN (20:24)
--- NOTE | 2018-02-05 20:31 | P.HPIM ---
History of Present Illness H&P Date: 02/05/18 Is an 82-year-old male with past medical history of coronary artery disease status post stent replacement was admitted to the hospital for shortness of breath that has been gone for the last few days doesn't have chest pain no vomiting feels weak Patient has been treated as an outpatient for pneumonia with antibiotics with no improvement Review of systems and systems has been reviewed all negative and positive findings as per HPI Past Medical History: Coronary Artery Disease (CAD), Chest Pain / Angina, Heart Failure, Deep Vein Thrombosis (DVT), Hyperlipidemia, Hypertension, Myocardial Infarction ([place]), Prostate Disorder Additional Past Medical History / Comment(s): Coronary artery disease, aortic valve replacement with a prostatic aortic valve, chronic atrial fibrillation, pulmonary hypertension with evidence of right-sided heart failure, remote history of DVT back in 2006, hypertension, hyperlipidemia, BPH, prostate cancer , recurrent right-sided pleural effusion, sepsis in general 2018, recurrent thoracenteses along the right lung, Last Myocardial Infarction Date:: 2005? History of Any Multi-Drug Resistant Organisms: None Reported Past Surgical History: Appendectomy, Cardiac Valve Replacement, Cholecystectomy , Heart Catheterization, Heart Catheterization With Stent, Hernia Repair, Pacemaker, Prostate Surgery Additional Past Surgical History / Comment(s): aortic valve replacement, bilateral cataracts removal, penile implant x2, thoracentesis last one aug 2017 Past Anesthesia/Blood Transfusion Reactions: Previous Problems w/ Anesthesia Additional Past Anesthesia/Blood Transfusion Reaction / Comment(s): "one time BP dropped too low" Date of Last Stent Placement:: 2005 Type of Cardiac Device: Permanent Pacemaker Device Placement Date:: approx 12 yrs ago Past Psychological History: Anxiety Smoking Status: Former smoker Past Alcohol Use History: None Reported Past Drug Use History: None Reported - Past Family History Brother(s) Family Medical History: Cancer Sister(s) Family Medical History: Cancer Father Family Medical History: Cancer Additional Family Medical History / Comment(s): HEART PROLEMS AND VASUCLAR PROBLEMS HAD CABG Mother Family Medical History: Myocardial Infarction ([place]) Additional Family Medical History / Comment(s): HAD OPEN HEART SX. Constitutional: No acute distress, conversant, pleasant Eyes: Anicteric sclerae, moist conjunctiva, no lid-lag PERRLA ENMT: NC/AT Oropharynx clear, no erythema, exudates Neck: Supple, FROM, no masses, or JVD No carotid bruits No thyromegaly Lungs: Crackly bilaterally Vital Signs - 24 hr 02/05/18 02/05/18 02/05/18 17:29 17:41 17:49 Temperature 98.5 F Pulse Rate 60 63 Respiratory 18 16 18 Rate Blood Pressure 184/81 O2 Sat by Pulse 93 L Oximetry 02/05/18 02/05/18 02/05/18 17:51 18:39 19:49 Temperature Pulse Rate 60 59 L 62 Respiratory 16 18 16 Rate Blood Pressure 178/79 O2 Sat by Pulse 98 Oximetry 02/05/18 19:59 Temperature Pulse Rate 59 L Respiratory 16 Rate Blood Pressure O2 Sat by Pulse Oximetry Diabetes panel 02/05/18 Range/Units 17:48 Sodium 135 L (137-145) mmol/L Potassium 5.0 (3.5-5.1) mmol/L Chloride 96 L (98-107) mmol/L Carbon Dioxide 25 (22-30) mmol/L BUN 36 H (9-20) mg/dL Creatinine 1.06 (0.66-1.25) mg/dL Glucose 139 H (74-99) mg/dL Calcium 9.1 (8.4-10.2) mg/dL AST 50 (17-59) U/L ALT 38 (21-72) U/L Alkaline Phosphatase 113 (38-126) U/L Total Protein 7.6 (6.3-8.2) g/dL Albumin 4.6 (3.5-5.0) g/dL Calcium panel 02/05/18 Range/Units 17:48 Calcium 9.1 (8.4-10.2) mg/dL Albumin 4.6 (3.5-5.0) g/dL Pituitary panel 02/05/18 Range/Units 17:48 Sodium 135 L (137-145) mmol/L Potassium 5.0 (3.5-5.1) mmol/L Chloride 96 L (98-107) mmol/L Carbon Dioxide 25 (22-30) mmol/L BUN 36 H (9-20) mg/dL Creatinine 1.06 (0.66-1.25) mg/dL Glucose 139 H (74-99) mg/dL Calcium 9.1 (8.4-10.2) mg/dL Adrenal panel 02/05/18 Range/Units 17:48 Sodium 135 L (137-145) mmol/L Potassium 5.0 (3.5-5.1) mmol/L Chloride 96 L (98-107) mmol/L Carbon Dioxide 25 (22-30) mmol/L BUN 36 H (9-20) mg/dL Creatinine 1.06 (0.66-1.25) mg/dL Glucose 139 H (74-99) mg/dL Calcium 9.1 (8.4-10.2) mg/dL Total Bilirubin 1.0 (0.2-1.3) mg/dL AST 50 (17-59) U/L ALT 38 (21-72) U/L Alkaline Phosphatase 113 (38-126) U/L Total Protein 7.6 (6.3-8.2) g/dL Albumin 4.6 (3.5-5.0) g/dL Cardiovascular: Heart regular in rate and rhythm, No murmurs, gallops, or rubs No peripheral edema Abdominal: Soft Nontender, no guarding, rebound or rigidity Abdomen moving with respiration Normoactive bowel sounds No hepatomegaly, No splenomegaly No palpable mass No abdominal wall hernia noted Skin: Normal temperature, tone, texture, turgor No induration No subcutaneous nodules No rash, lesions No ulcers Extremities: No digital cyanosis No clubbing Pedal pulses intact and symmetrical Radial pulses intact and symmetrical Normal gait and station No calf tenderness Psychiatric:Alert and oriented to person, place and time Appropriate affect Intact judgement Neuro: Muscles Strength 5/5 in all 4 extremities Sensation to light touch grossly present throughout Cranial nerves II-XII grossly intact No focal sensory deficits Assessment and plan Pneumonia we will continue patient on Zithromax and Zosyn and will monitor There are artery disease no evidence of acute coronary syndrome at this time we' ll check cardiac enzymes aortic valve replacement will continue patient on Coumadin and will monitor Chronic pain we'll hold morphine for now the patient takes chronically morphine to avoid respiratory distress he may gradually do IV morphine if needed Past Medical History Past Medical History: Coronary Artery Disease (CAD), Chest Pain / Angina, Heart Failure, Deep Vein Thrombosis (DVT), Hyperlipidemia, Hypertension, Myocardial Infarction ([place]), Prostate Disorder Additional Past Medical History / Comment(s): Coronary artery disease, aortic valve replacement with a prostatic aortic valve, chronic atrial fibrillation, pulmonary hypertension with evidence of right-sided heart failure, remote history of DVT back in 2006, hypertension, hyperlipidemia, BPH, prostate cancer , recurrent right-sided pleural effusion, sepsis in general 2018, recurrent thoracenteses along the right lung, Last Myocardial Infarction Date:: 2005? History of Any Multi-Drug Resistant Organisms: None Reported Past Surgical History: Appendectomy, Cardiac Valve Replacement, Cholecystectomy , Heart Catheterization, Heart Catheterization With Stent, Hernia Repair, Pacemaker, Prostate Surgery Additional Past Surgical History / Comment(s): aortic valve replacement, bilateral cataracts removal, penile implant x2, thoracentesis last one aug 2017 Past Anesthesia/Blood Transfusion Reactions: Previous Problems w/ Anesthesia Additional Past Anesthesia/Blood Transfusion Reaction / Comment(s): "one time BP dropped too low" Date of Last Stent Placement:: 2005 Type of Cardiac Device: Permanent Pacemaker Device Placement Date:: approx 12 yrs ago Past Psychological History: Anxiety Smoking Status: Former smoker Past Alcohol Use History: None Reported Past Drug Use History: None Reported - Past Family History Brother(s) Family Medical History: Cancer Sister(s) Family Medical History: Cancer Father Family Medical History: Cancer Additional Family Medical History / Comment(s): HEART PROLEMS AND VASUCLAR PROBLEMS HAD CABG Mother Family Medical History: Myocardial Infarction ([place]) Additional Family Medical History / Comment(s): HAD OPEN HEART SX. Medications and Allergies Home Medications Medication Instructions Recorded Confirmed Type Carvedilol 25 mg PO DAILY 06/19/15 02/05/18 History Ferrous Sulfate [Iron (65 MG 325 mg PO DAILY 06/19/15 02/05/18 History Elemental)] oxyCODONE HCL 15 mg PO BID PRN 06/19/15 02/05/18 History LORazepam [Ativan] 0.5 mg PO BID PRN 07/28/16 02/05/18 History Pantoprazole [Protonix] 40 mg PO QAM 07/28/16 02/05/18 History Sucralfate [Carafate] 1 gm PO BID-W/MEALS 07/28/16 02/05/18 History Ubidecarenone [Co Q-10] 200 mg PO DAILY 07/28/16 02/05/18 History Lovastatin [Mevacor] 20 mg PO HS 11/20/17 02/05/18 History Morphine Sulfate ER [Ms Contin] 30 mg PO Q12HR 11/20/17 02/05/18 History Warfarin [Coumadin] 2 mg PO HS 11/20/17 02/05/18 History Warfarin [Coumadin] 5 mg PO HS 11/20/17 02/05/18 History traZODone HCL 100 mg PO HS 11/20/17 02/05/18 History Furosemide [Lasix] 40 mg PO BID #60 tablet 11/21/17 02/05/18 Rx Amoxicillin 500 mg PO Q8H 02/05/18 02/05/18 History Citalopram Hydrobromide [CeleXA] 10 mg PO DAILY 02/05/18 02/05/18 History Promethazine [Phenergan] 12.5 mg PO Q4HR PRN 02/05/18 02/05/18 History Allergies Allergy/AdvReac Type Severity Reaction Status Date / Time No Known Allergies Allergy Verified 02/05/18 17:38 Physical Exam Vitals: Vital Signs Temp Pulse Resp BP Pulse Ox 02/05/18 19:59 59 L 16 02/05/18 19:49 62 16 02/05/18 18:39 59 L 18 178/79 98 02/05/18 17:51 60 16 02/05/18 17:49 18 02/05/18 17:41 63 16 02/05/18 17:29 98.5 F 60 18 184/81 93 L Intake and Output 02/05/18 02/05/18 02/05/18 06:59 14:59 22:59 Other: Weight 74.843 kg Results CBC & Chem 7: 02/05/18 17:48 02/05/18 17:48 Labs: Abnormal Lab Results - Last 24 Hours (Table) 02/05/18 02/05/18 02/05/18 Range/Units 17:48 17:48 17:48 RBC 3.72 L (4.30-5.90) m/uL Hgb 12.6 L (13.0-17.5) gm/dL Hct 36.9 L (39.0-53.0) % PT (9.0-12.0) sec INR (<1.2) APTT (22.0-30.0) sec Sodium 135 L (137-145) mmol/L Chloride 96 L (98-107) mmol/L BUN 36 H (9-20) mg/dL Glucose 139 H (74-99) mg/dL Total Creatine Kinase 52 L (55-170) U/L 02/05/18 Range/Units 17:48 RBC (4.30-5.90) m/uL Hgb (13.0-17.5) gm/dL Hct (39.0-53.0) % PT 25.0 H (9.0-12.0) sec INR 2.8 H (<1.2) APTT 31.1 H (22.0-30.0) sec Sodium (137-145) mmol/L Chloride (98-107) mmol/L BUN (9-20) mg/dL Glucose (74-99) mg/dL Total Creatine Kinase (55-170) U/L
[2018-02-05] MEDS: traZODone HCL 100 MG TAB PO SCH (21:50)
[2018-02-05] MEDS: WARFARIN 5 MG TAB PO SCH (21:51)
[2018-02-05] MEDS: FUROSEMIDE 40 MG TAB PO SCH (21:51)
[2018-02-05] MEDS: WARFARIN 2 MG TAB PO SCH (21:53)
[2018-02-05] MEDS: ATORVASTATIN 10 MG TAB PO SCH (21:56)
[2018-02-05] MEDS ORDERED: hydrALAZINE HCL 20 MG/ML 1 ML VIAL IVP STA (23:40)
[2018-02-05] MEDS ORDERED: amLODIPine 10 MG TAB PO STA (23:40)
[2018-02-06 00:28] LABS: Creatine Kinase MB 1.3 ng/mL (0.0-2.4); Troponin I 0.033 ng/mL (0.000-0.034)
[2018-02-06 07:01] LABS: Basophils % (A) 0 %; Eosinophils # (A) 0.1 k/uL (0-0.7); Eosinophils % (A) 1 %; HCT 37.3 % (39.0-53.0); HGB 12.6 gm/dL (13.0-17.5); Lymphocytes # (A) 1.2 k/uL (1.0-4.8); Lymphocytes % (A) 14 %; MCH 33.8 pg (25.0-35.0); MCHC 33.8 g/dL (31.0-37.0); Macrocytosis Slight; Mean Platelet Volume 6.6; Monocytes # (A) 0.5 k/uL (0-1.0); Monocytes % (A) 6 %; Neutrophils # (A) 6.5 k/uL (1.3-7.7); Neutrophils % (A) 76 %; Platelet Count 218 k/uL (150-450); RBC 3.73 m/uL (4.30-5.90); RDW 15.2 % (11.5-15.5); WBC 8.6 k/uL (3.8-10.6)
[2018-02-06 07:12] LABS: INR 2.6 (<1.2); Prothrombin Time 23.8 sec (9.0-12.0)
[2018-02-06 07:51] LABS: Albumin 4.2 g/dL (3.5-5.0); Calcium 8.8 mg/dL (8.4-10.2); Potassium 4.1 mmol/L (3.5-5.1); Total Bilirubin 1.4 mg/dL (0.2-1.3); Total Protein 7.2 g/dL (6.3-8.2)
[2018-02-06 07:54] LABS: Creatine Kinase MB 1.1 ng/mL (0.0-2.4); Troponin I 0.033 ng/mL (0.000-0.034)
[2018-02-06] MEDS: IPRATROPIUM-ALBUTEROL 3 ML NEB INHALATION SCH ×4 (08:33→19:32)
[2018-02-06] MEDS ORDERED: NON-FORMULARY DRUG (Ubidecarenone [Co Q-10] 200 MG) PO SCH (09:00)
[2018-02-06] MEDS: PANTOPRAZOLE 40 MG TABLET PO SCH (09:20)
[2018-02-06] MEDS: PIPERACILLIN-TAZOBACTAM 3.375 GM in DEXTROSE/WATER 1 50ML.BAG IVPB SCH ×2 (09:20→15:57)
[2018-02-06] MEDS: CARVEDILOL 12.5 MG TAB PO SCH (09:21)
[2018-02-06] MEDS: SUCRALFATE 1 GM TAB PO SCH ×2 (09:21→17:23)
[2018-02-06] MEDS: CITALOPRAM HYDROBROMIDE 10 MG TAB PO SCH (09:21)
[2018-02-06] MEDS: FUROSEMIDE 40 MG TAB PO SCH ×2 (09:21→17:23)
--- NOTE | 2018-02-06 09:21 | XR ---
EXAMINATION: XR chest 2V DATE AND TIME: 02/06/2018 7:21 AM ORDERING PROVIDER: Edouard Rick CLINICAL INDICATION: pneumonia TECHNIQUE: PA and lateral COMPARISON: PA and lateral radiograph 02/05/2018 at 7:08 PM DESCRIPTION: Cardiac pacemaker and sternal sutures are noted. The prominent right pleural parenchymal changes seen on yesterday's study are redemonstrated. In edgardo tion, there is mild interval worsening in the overall lung inflation by a fine reticular pattern incr eased attenuation throughout the lungs, which has the appearance of interstitial phase pulmonary ashleigh a. Suspect cardiogenic etiology given the moderate enlargement of the cardiac silhouette appears unch anged. Pleural spaces are otherwise unremarkable. Bones and soft tissues are without findings. IMPRESSION: 1. Stable prominent right lower hemithorax pleural parenchymal abnormalities. 2. Radiographically suspected new mild interstitial phase cardiogenic pulmonary edema.
--- NOTE | 2018-02-06 09:44 | P.CNPUL ---
History of Present Illness Consult date: 02/06/18 Requesting physician: Eri Choudhury Reason for consult: dyspnea Chief complaint: Shortness of breath, cough, congestion History of present illness: This is a very pleasant 82-year-old gentleman who follows with Dr. Lundberg as his primary care physician. He has a history of coronary artery disease, aortic valve stenosis with previous bypass surgery and valve replacement, chronic atrial fibrillation status post permanent pacemaker implantation on oral anticoagulants, DVT of the left lower extremity, congestive heart failure, pulmonary hypertension. The patient also has a history of recurrent pleural effusions with initial thoracentesis in June 2017, thoracentesis of the right lung again in August 2017 in [place]. The patient also has a history of sepsis with bacteremia requiring PICC line insertion for prolonged antibiotics. He has been admitted here a couple of times this year for shortness of breath , cough and congestion. The right pleural effusion is loculated and he has not had any subsequent thoracentesis done. He follows with Dr. Ballard in our office and was last seen in November. FEV1 value 73% of predicted. He was treating the patient conservatively. He felt this was more of a congestive heart failure type picture. The patient againhad recurrent shortness of breath , cough and congestion and was seen by Dr. Lundberg who treated him with oral antibiotics. The patient felt he was getting worse and came to the emergency room here last evening. Chest x-ray reveals stable prominent right lower hemithorax pleural parenchymal abnormalities. There is some new mild interstitial cardiogenic pulmonary edema noted. No evidence of pneumonia. He is seen today in consultation on the regular medical floor. He is currently sitting up in a chair at the bedside. He is awake and alert in no acute distress. He is already feeling better today as compared to yesterday. He is afebrile. Maintaining O2 saturations in the 90s on room air. Hemodynamically stable. White count 8.6. Hemoglobin 12.6. INR 2.6. Creatinine 1.09. ProBNP 2640. He's been initiated on Zosyn and Levaquin. DuoNeb inhalations. Oral diuretics. Review of Systems Constitutional: Reports lethargy, Reports weakness Eyes: denies blurred vision, denies decreased vision Ears: bilateral: decreased hearing Ears, nose, mouth and throat: Denies headache, Denies sore throat Cardiovascular: Reports dyspnea on exertion, Reports shortness of breath Respiratory: Reports cough, Reports dyspnea, Reports home oxygen Gastrointestinal: Denies abdominal pain, Denies diarrhea, Denies nausea, Denies vomiting Genitourinary: Reports as per HPI Musculoskeletal: Reports low back pain Integumentary: Denies pruritus, Denies rash Neurological: Denies numbness, Denies weakness Psychiatric: Denies anxiety, Denies depression Endocrine: Denies fatigue, Denies weight change Hematologic/Lymphatic: Reports as per HPI Allergic/Immunologic: Reports as per HPI Past Medical History Past Medical History: Coronary Artery Disease (CAD), Chest Pain / Angina, Heart Failure, Deep Vein Thrombosis (DVT), Hyperlipidemia, Hypertension, Myocardial Infarction ([place]), Prostate Disorder Additional Past Medical History / Comment(s): Coronary artery disease, aortic valve replacement with a prostatic aortic valve, chronic atrial fibrillation, pulmonary hypertension with evidence of right-sided heart failure, remote history of DVT back in 2006, hypertension, hyperlipidemia, BPH, prostate cancer , recurrent right-sided pleural effusion, sepsis in general 2018, home 02 2 liters nc/hs, Last Myocardial Infarction Date:: 2005? History of Any Multi-Drug Resistant Organisms: None Reported Past Surgical History: Appendectomy, Cardiac Valve Replacement, Cholecystectomy , Heart Catheterization, Heart Catheterization With Stent, Hernia Repair, Pacemaker, Prostate Surgery Additional Past Surgical History / Comment(s): aortic valve replacement, bilateral cataracts removal, penile implant x2, thoracentesis , tooth extractions Past Anesthesia/Blood Transfusion Reactions: Previous Problems w/ Anesthesia Additional Past Anesthesia/Blood Transfusion Reaction / Comment(s): "one time BP dropped too low" Date of Last Stent Placement:: 2005 Type of Cardiac Device: Permanent Pacemaker Device Placement Date:: approx 12 yrs ago Smoking Status: Former smoker - Past Family History Brother(s) Family Medical History: Cancer Sister(s) Family Medical History: Cancer Father Family Medical History: Cancer Additional Family Medical History / Comment(s): HEART PROLEMS AND VASUCLAR PROBLEMS HAD CABG Mother Family Medical History: Myocardial Infarction ([place]) Additional Family Medical History / Comment(s): HAD OPEN HEART SX. Medications and Allergies Home Medications Medication Instructions Recorded Confirmed Type Carvedilol 25 mg PO DAILY 06/19/15 02/05/18 History Ferrous Sulfate [Iron (65 MG 325 mg PO DAILY 06/19/15 02/05/18 History Elemental)] oxyCODONE HCL 15 mg PO BID PRN 06/19/15 02/05/18 History LORazepam [Ativan] 0.5 mg PO BID PRN 07/28/16 02/05/18 History Pantoprazole [Protonix] 40 mg PO QAM 07/28/16 02/05/18 History Sucralfate [Carafate] 1 gm PO BID-W/MEALS 07/28/16 02/05/18 History Ubidecarenone [Co Q-10] 200 mg PO DAILY 07/28/16 02/05/18 History Lovastatin [Mevacor] 20 mg PO HS 11/20/17 02/05/18 History Morphine Sulfate ER [Ms Contin] 30 mg PO Q12HR 11/20/17 02/05/18 History Warfarin [Coumadin] 2 mg PO HS 11/20/17 02/05/18 History Warfarin [Coumadin] 5 mg PO HS 11/20/17 02/05/18 History traZODone HCL 100 mg PO HS 11/20/17 02/05/18 History Furosemide [Lasix] 40 mg PO BID #60 tablet 11/21/17 02/05/18 Rx Amoxicillin 500 mg PO Q8H 02/05/18 02/05/18 History Citalopram Hydrobromide [CeleXA] 10 mg PO DAILY 02/05/18 02/05/18 History Promethazine [Phenergan] 12.5 mg PO Q4HR PRN 02/05/18 02/05/18 History Allergies Allergy/AdvReac Type Severity Reaction Status Date / Time No Known Allergies Allergy Verified 02/05/18 17:38 Physical Exam Vitals: Vital Signs Temp Pulse Pulse Resp BP BP Pulse Ox 02/06/18 08:46 60 02/06/18 08:34 60 02/06/18 05:38 97.6 F 62 18 149/66 93 L 02/06/18 00:30 65 141/78 02/05/18 22:00 98.6 F 62 16 189/80 95 02/05/18 20:43 60 18 188/91 98 02/05/18 19:59 59 L 16 02/05/18 19:49 62 16 02/05/18 19:43 95 02/05/18 18:39 59 L 18 178/79 98 02/05/18 17:51 60 16 02/05/18 17:49 18 02/05/18 17:41 63 16 02/05/18 17:29 98.5 F 60 18 184/81 93 L Intake and Output 02/05/18 02/06/18 02/06/18 22:59 06:59 14:59 Intake Total 590 500 Balance 590 500 Intake: Intake, IV Titration 200 Amount Levofloxacin 750Mg-D5w 150 Pmx 750 mg In Dextrose/ Water 1 150ml.bag @ 100 mls/hr IVPB ONCE STA Rx#: [id number] Piperacillin-Tazobactam 3 50 .375 gm In Dextrose/Water 1 50ml.bag @ 12.5 mls/hr IVPB Q8HR [facility] Rx#: [id number] Oral 590 300 Other: Voiding Method Toilet # Voids 1 3 Weight 74.843 kg - Constitutional General appearance: average body habitus, no acute distress - EENT Eyes: EOMI, PERRLA ENT: hard of hearing Ears: bilateral: normal - Neck Neck: normal ROM Carotids: bilateral: upstroke normal Thyroid: bilateral: normal size - Respiratory Respiratory: right: rales - Cardiovascular Rhythm: regular Heart sounds: normal: S1, S2 - Gastrointestinal General gastrointestinal: normal bowel sounds - Integumentary Integumentary: normal turgor - Neurologic Neurologic: CNII-XII intact - Musculoskeletal Musculoskeletal: generalized weakness - Psychiatric Psychiatric: A&O x's 3, appropriate affect, intact judgment & insight Results - Laboratory Findings CBC and BMP: 02/06/18 06:36 02/06/18 06:36 PT/INR, D-dimer PT 23.8 sec (9.0-12.0) H 02/06/18 06:36 INR 2.6 (<1.2) H 02/06/18 06:36 Abnormal lab findings: Abnormal Labs 02/05/18 02/05/18 02/05/18 17:48 17:48 17:48 RBC 3.72 L Hgb 12.6 L Hct 36.9 L PT INR APTT Sodium 135 L Chloride 96 L BUN 36 H Glucose 139 H Total Bilirubin Total Creatine Kinase 52 L 02/05/18 02/05/18 02/06/18 17:48 23:04 06:36 RBC Hgb Hct PT 25.0 H INR 2.8 H APTT 31.1 H Sodium Chloride BUN Glucose Total Bilirubin Total Creatine Kinase 52 L 45 L 02/06/18 02/06/18 02/06/18 06:36 06:36 06:36 RBC 3.73 L Hgb 12.6 L Hct 37.3 L PT 23.8 H INR 2.6 H APTT Sodium Chloride BUN 31 H Glucose 103 H Total Bilirubin 1.4 H Total Creatine Kinase - Diagnostic Findings Chest x-ray: image reviewed Assessment and Plan Assessment: Impression: #1 Acute on chronic hypoxic respiratory failure secondary to an acute exacerbation of diastolic congestive heart failure, stable chronic right-sided pleural effusion. #2 Acute on chronic diastolic congestive heart failure. Preserved left ventricular systolic function with ejection fraction 50-55%. #3 Stable, loculated right pleural effusion. #4 Pericarinal lymph node measuring 2.5 x 1.7 cm, abnormal anterior superior mediastinal lymph node measuring 1.8 x 1.4 cm. Being followed in the outpatient setting. #5 Chronic atrial fibrillation, anticoagulated with warfarin. #6 Cardiac arrhythmia requiring permanent pacemaker implantation. #7 Remote history of DVT in 2006. #8 Hypertension. #9 Hyperlipidemia. #10 Coronary artery disease status post coronary artery bypass grafting. #11 Aortic valve stenosis status post aortic valve replacement utilizing a bioprosthetic aortic valve. #12 History of prostate cancer. #13 Chronic pain syndrome. #14 Anxiety/depression. Plan The patient was seen and evaluated by Dr. Smith. Chest x-ray and labs were reviewed. Stable loculated right pleural effusion. There is no clear evidence of pneumonia, possible tracheobronchitis. The patient is quite stable from the pulmonary standpoint. Upon discharge, he could be on oral antibiotics and a prednisone taper. He will follow-up with Dr. Ballard in the outpatient setting. He PET scan may be helpful regarding the mediastinal adenopathy. We will increase his activity as tolerated. We'll continue to follow and make further recommendations based on his clinical status. I, the cosigning physician, performed a history & physical examination of the patient. Lungs sounds crackles in the right posterior base. Maintaining good O2 saturations in the 90s on room air. I discussed the assessment and plan of care with my nurse practitioner, Margarita Soto. I attest to the above note as dictated by her. Time with Patient: Greater than 30
[2018-02-06] MEDS ORDERED: MORPHINE SULFATE ER 30 MG TABLET PO PRN (09:48)
[2018-02-06] MEDS ORDERED: LORazepam 1 MG TAB PO PRN (09:48)
[2018-02-06] MEDS: ENOXAPARIN 40 MG/0.4 ML SYRINGE SQ SCH (10:03)
--- NOTE | 2018-02-06 12:13 | P.PN ---
Subjective Progress Note Date: 02/06/18 Principal diagnosis: Patient feels okay states that there is no worsening or improvement Denies chest pain no vomiting Constitutional: No acute distress, conversant, pleasant Eyes: Anicteric sclerae, moist conjunctiva, no lid-lag PERRLA ENMT: Cranial nerves grossly intact Neck: Supple, FROM, no masses, or JVD No carotid bruits No thyromegaly Lungs: Clear to auscultation Clear to percussion Normal respiratory effort, no accessory muscle use Cardiovascular: Heart regular in rate and rhythm, No murmurs, gallops, or rubs No peripheral edema Abdominal: Soft Nontender, no guarding, rebound or rigidity Abdomen moving with respiration Normoactive bowel sounds No hepatomegaly, No splenomegaly No palpable mass No abdominal wall hernia noted Skin: Normal temperature, tone, texture, turgor No induration No subcutaneous nodules No rash, lesions No ulcers Extremities: No digital cyanosis No clubbing Pedal pulses intact and symmetrical Radial pulses intact and symmetrical Normal gait and station No calf tenderness Psychiatric:Alert and oriented to person, place and time Appropriate affect Intact judgement Neuro: Generalized weakness Vital Signs - 24 hr 02/05/18 02/05/18 02/05/18 17:29 17:41 17:49 Temperature 98.5 F Pulse Rate 60 63 Pulse Rate [ Pulse Oximetery ] Respiratory 18 16 18 Rate Blood Pressure 184/81 Blood Pressure [Sitting] O2 Sat by Pulse 93 L Oximetry 02/05/18 02/05/18 02/05/18 17:51 18:39 19:43 Temperature Pulse Rate 60 59 L Pulse Rate [ Pulse Oximetery ] Respiratory 16 18 Rate Blood Pressure 178/79 Blood Pressure [Sitting] O2 Sat by Pulse 98 95 Oximetry 02/05/18 02/05/18 02/05/18 19:49 19:59 20:43 Temperature Pulse Rate 62 59 L 60 Pulse Rate [ Pulse Oximetery ] Respiratory 16 16 18 Rate Blood Pressure 188/91 Blood Pressure [Sitting] O2 Sat by Pulse 98 Oximetry 02/05/18 02/06/18 02/06/18 22:00 00:30 05:38 Temperature 98.6 F 97.6 F Pulse Rate Pulse Rate [ 62 65 62 Pulse Oximetery ] Respiratory 16 18 Rate Blood Pressure Blood Pressure 189/80 141/78 149/66 [Sitting] O2 Sat by Pulse 95 93 L Oximetry 02/06/18 02/06/18 02/06/18 08:00 08:34 08:46 Temperature Pulse Rate 60 60 Pulse Rate [ 62 Pulse Oximetery ] Respiratory 18 Rate Blood Pressure Blood Pressure [Sitting] O2 Sat by Pulse Oximetry 02/06/18 02/06/18 11:37 11:57 Temperature Pulse Rate 64 60 Pulse Rate [ Pulse Oximetery ] Respiratory Rate Blood Pressure Blood Pressure [Sitting] O2 Sat by Pulse Oximetry Laboratory Results - last 24 hr 02/05/18 02/05/18 02/05/18 17:48 17:48 17:48 WBC 9.7 RBC 3.72 L Hgb 12.6 L Hct 36.9 L MCV 99.1 MCH 33.8 MCHC 34.1 RDW 14.4 Plt Count 226 Neutrophils % 78 Lymphocytes % 13 Monocytes % 6 Eosinophils % 1 Basophils % 0 Neutrophils # 7.5 Lymphocytes # 1.3 Monocytes # 0.6 Eosinophils # 0.1 Basophils # 0.0 Macrocytosis PT INR APTT Sodium 135 L Potassium 5.0 Chloride 96 L Carbon Dioxide 25 Anion Gap 14 BUN 36 H Creatinine 1.06 Est GFR (CKD-EPI)AfAm 76 Est GFR (CKD-EPI)NonAf 66 Glucose 139 H Calcium 9.1 Magnesium 2.2 Total Bilirubin 1.0 AST 50 ALT 38 Alkaline Phosphatase 113 Total Creatine Kinase 52 L CK-MB (CK-2) 1.1 CK-MB (CK-2) Rel Index 2.1 Troponin I 0.022 NT-Pro-B Natriuret Pep Total Protein 7.6 Albumin 4.6 02/05/18 02/05/18 02/05/18 17:48 17:48 23:04 WBC RBC Hgb Hct MCV MCH MCHC RDW Plt Count Neutrophils % Lymphocytes % Monocytes % Eosinophils % Basophils % Neutrophils # Lymphocytes # Monocytes # Eosinophils # Basophils # Macrocytosis PT 25.0 H INR 2.8 H APTT 31.1 H Sodium Potassium Chloride Carbon Dioxide Anion Gap BUN Creatinine Est GFR (CKD-EPI)AfAm Est GFR (CKD-EPI)NonAf Glucose Calcium Magnesium Total Bilirubin AST ALT Alkaline Phosphatase Total Creatine Kinase 52 L CK-MB (CK-2) 1.3 CK-MB (CK-2) Rel Index 2.5 Troponin I 0.033 NT-Pro-B Natriuret Pep 2640 Total Protein Albumin 02/06/18 02/06/18 06/16/18 06:36 06:36 06:36 WBC 8.6 RBC 3.73 L Hgb 12.6 L Hct 37.3 L MCV 100.0 MCH 33.8 MCHC 33.8 RDW 15.2 Plt Count 218 Neutrophils % 76 Lymphocytes % 14 Monocytes % 6 Eosinophils % 1 Basophils % 0 Neutrophils # 6.5 Lymphocytes # 1.2 Monocytes # 0.5 Eosinophils # 0.1 Basophils # 0.0 Macrocytosis Slight PT INR APTT Sodium 139 Potassium 4.1 Chloride 99 Carbon Dioxide 26 Anion Gap 14 BUN 31 H Creatinine 1.09 Est GFR (CKD-EPI)AfAm 73 Est GFR (CKD-EPI)NonAf 63 Glucose 103 H Calcium 8.8 Magnesium Total Bilirubin 1.4 H AST 42 ALT 39 Alkaline Phosphatase 113 Total Creatine Kinase 45 L CK-MB (CK-2) 1.1 CK-MB (CK-2) Rel Index 2.4 Troponin I 0.033 NT-Pro-B Natriuret Pep Total Protein 7.2 Albumin 4.2 02/06/18 06:36 WBC RBC Hgb Hct MCV MCH MCHC RDW Plt Count Neutrophils % Lymphocytes % Monocytes % Eosinophils % Basophils % Neutrophils # Lymphocytes # Monocytes # Eosinophils # Basophils # Macrocytosis PT 23.8 H INR 2.6 H APTT Sodium Potassium Chloride Carbon Dioxide Anion Gap BUN Creatinine Est GFR (CKD-EPI)AfAm Est GFR (CKD-EPI)NonAf Glucose Calcium Magnesium Total Bilirubin AST ALT Alkaline Phosphatase Total Creatine Kinase CK-MB (CK-2) CK-MB (CK-2) Rel Index Troponin I NT-Pro-B Natriuret Pep Total Protein Albumin Assessment and plan Acute on chronic diastolic congestive heart failure continue the patient on Lasix Chronic pleural effusions continue patient on Lasix Initially patient was started on IV antibiotics currently per pulmonology note pneumonia is doubted at this time aortic valve replacement continue patient on Coumadin INR is currently therapeutic Chronic pain patient is on morphine by mouth Objective - Vital Signs Vital signs: Vital Signs Temp 97.6 F 02/06/18 05:38 Pulse 60 02/06/18 11:57 Resp 18 02/06/18 08:00 BP 149/66 02/06/18 05:38 Pulse Ox 93 L 02/06/18 05:38 Intake & Output 02/05/18 02/06/18 02/06/18 18:59 06:59 18:59 Intake Total 1090 Balance 1090 Weight 74.843 kg Intake: Intake, IV Titration 200 Amount Levofloxacin 750Mg-D5w 150 Pmx 750 mg In Dextrose/ Water 1 150ml.bag @ 100 mls/hr IVPB ONCE STA Rx#: [id number] Piperacillin-Tazobactam 3 50 .375 gm In Dextrose/Water 1 50ml.bag @ 12.5 mls/hr IVPB Q8HR [facility] Rx#: [id number] Oral 890 Other: Voiding Method Toilet Toilet # Voids 3 - Labs CBC & Chem 7: 02/06/18 06:36 02/06/18 06:36 Labs: Abnormal Lab Results - Last 24 Hours (Table) 02/05/18 02/05/18 02/05/18 Range/Units 17:48 17:48 17:48 RBC 3.72 L (4.30-5.90) m/uL Hgb 12.6 L (13.0-17.5) gm/dL Hct 36.9 L (39.0-53.0) % PT (9.0-12.0) sec INR (<1.2) APTT (22.0-30.0) sec Sodium 135 L (137-145) mmol/L Chloride 96 L (98-107) mmol/L BUN 36 H (9-20) mg/dL Glucose 139 H (74-99) mg/dL Total Bilirubin (0.2-1.3) mg/dL Total Creatine Kinase 52 L (55-170) U/L 02/05/18 02/05/18 02/06/18 Range/Units 17:48 23:04 06:36 RBC (4.30-5.90) m/uL Hgb (13.0-17.5) gm/dL Hct (39.0-53.0) % PT 25.0 H (9.0-12.0) sec INR 2.8 H (<1.2) APTT 31.1 H (22.0-30.0) sec Sodium (137-145) mmol/L Chloride (98-107) mmol/L BUN (9-20) mg/dL Glucose (74-99) mg/dL Total Bilirubin (0.2-1.3) mg/dL Total Creatine Kinase 52 L 45 L (55-170) U/L 02/06/18 02/06/18 02/06/18 Range/Units 06:36 06:36 06:36 RBC 3.73 L (4.30-5.90) m/uL Hgb 12.6 L (13.0-17.5) gm/dL Hct 37.3 L (39.0-53.0) % PT 23.8 H (9.0-12.0) sec INR 2.6 H (<1.2) APTT (22.0-30.0) sec Sodium (137-145) mmol/L Chloride (98-107) mmol/L BUN 31 H (9-20) mg/dL Glucose 103 H (74-99) mg/dL Total Bilirubin 1.4 H (0.2-1.3) mg/dL Total Creatine Kinase (55-170) U/L
[2018-02-06 15:12] VITALS: RESP 16
[2018-02-06] MEDS ORDERED: ONDANSETRON 4 MG/2 ML VIAL IVP PRN (16:01)
[2018-02-06] MEDS ORDERED: LEVOFLOXACIN 750MG-D5W PMX 750 MG in DEXTROSE/WATER 1 150ML.BAG IVPB SCH (21:00)
[2018-02-06] MEDS: traZODone HCL 100 MG TAB PO SCH (21:46)
[2018-02-06] MEDS: ATORVASTATIN 10 MG TAB PO SCH (21:46)
[2018-02-06] MEDS: WARFARIN 2 MG TAB PO SCH (21:46)
[2018-02-06] MEDS: POLYETHYLENE GLYCOL 3350 17 GM POWD.PACK PO SCH (21:46)
[2018-02-06] MEDS: WARFARIN 5 MG TAB PO SCH (21:47)
[2018-02-07] MEDS: PIPERACILLIN-TAZOBACTAM 3.375 GM in DEXTROSE/WATER 1 50ML.BAG IVPB SCH ×2 (00:41→08:42)
[2018-02-07 05:14] VITALS: BP 140/66; TEMP 96.7
[2018-02-07 07:11] LABS: Basophils % (A) 0 %; Eosinophils # (A) 0.2 k/uL (0-0.7); Eosinophils % (A) 2 %; HCT 37.8 % (39.0-53.0); HGB 12.2 gm/dL (13.0-17.5); Lymphocytes # (A) 1.3 k/uL (1.0-4.8); Lymphocytes % (A) 14 %; MCH 32.8 pg (25.0-35.0); MCHC 32.3 g/dL (31.0-37.0); MCV 101.5 fL (80.0-100.0); Macrocytosis Slight; Mean Platelet Volume 6.5; Monocytes # (A) 0.6 k/uL (0-1.0); Monocytes % (A) 7 %; Neutrophils # (A) 6.8 k/uL (1.3-7.7); Neutrophils % (A) 74 %; Platelet Count 241 k/uL (150-450); RBC 3.73 m/uL (4.30-5.90); RDW 14.7 % (11.5-15.5); WBC 9.2 k/uL (3.8-10.6)
[2018-02-07 07:24] LABS: Albumin 4.1 g/dL (3.5-5.0); Calcium 8.9 mg/dL (8.4-10.2); Potassium 4.4 mmol/L (3.5-5.1); Total Bilirubin 0.9 mg/dL (0.2-1.3); Total Protein 7.1 g/dL (6.3-8.2)
[2018-02-07 07:55] LABS: INR 2.8 (<1.2); Prothrombin Time 25.2 sec (9.0-12.0)
[2018-02-07] MEDS: CARVEDILOL 12.5 MG TAB PO SCH (08:41)
[2018-02-07] MEDS: PANTOPRAZOLE 40 MG TABLET PO SCH (08:42)
[2018-02-07] MEDS: ENOXAPARIN 40 MG/0.4 ML SYRINGE SQ SCH ×2 (08:42→08:54)
[2018-02-07] MEDS: CITALOPRAM HYDROBROMIDE 10 MG TAB PO SCH (08:42)
[2018-02-07] MEDS: SUCRALFATE 1 GM TAB PO SCH (08:42)
[2018-02-07] MEDS: POLYETHYLENE GLYCOL 3350 17 GM POWD.PACK PO SCH (08:43)
[2018-02-07] MEDS: FUROSEMIDE 40 MG TAB PO SCH (08:43)
[2018-02-07] MEDS: IPRATROPIUM-ALBUTEROL 3 ML NEB INHALATION SCH ×2 (08:51→12:32)
--- NOTE | 2018-02-07 10:22 | P.PN ---
Subjective Progress Note Date: 02/07/18 Principal diagnosis: Shortness of breath Progress note dated 02/07/2018 82-year-old male who is been seen by my partner partner before. He has a history of acute on chronic hypoxemic respiratory failure secondary to diastolic heart failure and a relatively stable chronic right-sided pleural effusion. He has undergone thoracentesis in the past. He also has a history of thoracic adenopathy including precarinal lymph nodes and superior mediastinal lymph nodes being followed by our partner in the outpatient setting. Additionally, the patient has a history of chronic atrial fibrillation previous cardiac arrhythmia requiring pacemaker insertion DVT hypertension hyperlipidemia CAD with previous bypass grafting aortic valve replacement for aortic stenosis prostate cancer chronic pain syndrome anxiety/ depression. His chest x-ray was evaluated and compared to previous an older x- rays and showed no change. The patient is clinically well and could be discharged home. Objective - Vital Signs Vital signs: Vital Signs Temp 96.7 F L 02/07/18 05:13 Pulse 60 02/07/18 09:07 Resp 16 02/07/18 05:13 BP 140/66 02/07/18 05:13 Pulse Ox 92 L 02/07/18 05:13 Intake & Output 02/06/18 02/07/18 02/07/18 18:59 06:59 18:59 Intake Total 50 450 Balance 50 450 Intake: Intake, IV Titration 50 50 Amount Piperacillin-Tazobactam 3 50 50 .375 gm In Dextrose/Water 1 50ml.bag @ 12.5 mls/hr IVPB Q8HR [facility] Rx#: [id number] Oral 400 Other: Voiding Method Toilet Toilet # Voids 1 - Exam No acute distress, oriented 3. No supplemental oxygen. HEENT examination is grossly unremarkable. Mucous membranes are moist. No oral lesions. Neck supple. Full range of motion. No adenopathy thyromegaly or neck vein distention. Cardiovascular examination reveals regular rhythm rate. S1-S2 normal. No S3 or S4. No discernible murmur noted. Lungs reveal minimal crackles at the right lung base. No wheezes. No rhonchi. Breath sounds are equal bilaterally. Abdomen soft bowel sounds are heard. No masses or tenderness. Extremities are intact. No cyanosis clubbing or edema. Skin is without rash or lesion. Neurologic examination is brief but nonfocal. - Labs CBC & Chem 7: 02/07/18 06:30 02/07/18 06:30 Labs: Abnormal Lab Results - Last 24 Hours (Table) 02/07/18 02/07/18 02/07/18 Range/Units 06:30 06:30 06:30 RBC 3.73 L (4.30-5.90) m/uL Hgb 12.2 L (13.0-17.5) gm/dL Hct 37.8 L (39.0-53.0) % MCV 101.5 H (80.0-100.0) fL PT 25.2 H (9.0-12.0) sec INR 2.8 H (<1.2) Sodium 136 L (137-145) mmol/L Chloride 97 L (98-107) mmol/L BUN 38 H (9-20) mg/dL Creatinine 1.50 H (0.66-1.25) mg/dL Glucose 108 H (74-99) mg/dL Microbiology - Last 24 Hours (Table) 02/05/18 17:48 Blood Culture - Preliminary Blood No Growth after 24 hours 02/06/18 11:50 Gram Stain - Final Sputum Sputum Culture - Final Assessment and Plan Assessment: Assessment Hypoxemic respiratory failure primarily related to diastolic congestive heart failure and chronic right-sided pleural effusion Stable loculated right-sided pleural effusion, status post previous thoracentesis Thoracic adenopathy, relatively stable, being followed by Dr. Ballard Chronic atrial fibrillation Status post pacemaker implantation for cardiac arrhythmia Remote history of DVT History of hypertension History of hyperlipidemia History bypass grafting for CAD Previous history of aortic valve replacement for aortic valve stenosis. History of prostate cancer Chronic pain syndrome Anxiety/depression Plan: Plan dated 02/07/2018 The patient actually looks very stable. Not requiring any supplemental oxygen. Chest x-ray and labs are reviewed. Loculated right-sided pleural effusion stable. No clearcut evidence of pneumonia. The patient is stable from the pulmonary standpoint. Denies any chest pain chest pressure palpitations shortness breath chest tightness wheezing cough phlegm production or hemoptysis. The patient could be discharged on a brief prednisone taper and some antibiotics. He can follow up with eye partner in the outpatient setting. Dr. Ballard was considering a PET scan. Time with Patient: Less than 30
[2018-02-07 12:43] VITALS: PULSE 60
--- NOTE | 2018-02-07 12:49 | P.DS ---
Providers Date of admission: 02/05/18 19:43 This is an 82-year-old male with multiple medical problems admitted to the hospital with shortness of breath that has been going for at least for several days before admission patient has been treated with by mouth antibiotics for suspected pneumonia as an outpatient without any significant improvement So patient was admitted to the hospital treated with IV antibiotics and IV Lasix Initially it was thought that the patient does have pneumonia pulmonology thinks that most likely bronchitis Overall the condition of the patient improved Today patient feels much better wants to go home denies any chest pain denies any shortness of breath more than baseline During the hospital stay the patient remained stable Constitutional: No acute distress, conversant, pleasant Eyes: Anicteric sclerae, moist conjunctiva, no lid-lag PERRLA ENMT: NC/AT Oropharynx clear, no erythema, exudates Neck: cn grossly intact Lungs: Slightly crackly bilaterally Cardiovascular: Heart regular in rate and rhythm, No murmurs, gallops, or rubs No peripheral edema Abdominal: Soft Nontender, no guarding, rebound or rigidity Abdomen moving with respiration Normoactive bowel sounds No hepatomegaly, No splenomegaly No palpable mass No abdominal wall hernia noted Skin: Normal temperature, tone, texture, turgor No induration No subcutaneous nodules No rash, lesions No ulcers Extremities: No digital cyanosis No clubbing Pedal pulses intact and symmetrical Radial pulses intact and symmetrical Normal gait and station No calf tenderness Psychiatric:Alert and oriented to person, place and time Appropriate affect Intact judgement Neuro: Muscles Strength 5/5 in all 4 extremities Sensation to light touch grossly present throughout Cranial nerves II-XII grossly intact No focal sensory deficits Laboratory Last Values WBC 9.2 k/uL (3.8-10.6) 02/07/18 06:30 RBC 3.73 m/uL (4.30-5.90) L 02/07/18 06:30 Hgb 12.2 gm/dL (13.0-17.5) L 02/07/18 06:30 Hct 37.8 % (39.0-53.0) L 02/07/18 06:30 MCV 101.5 fL (80.0-100.0) H 02/07/18 06:30 MCH 32.8 pg (25.0-35.0) 02/07/18 06:30 MCHC 32.3 g/dL (31.0-37.0) 02/07/18 06:30 RDW 14.7 % (11.5-15.5) 02/07/18 06:30 Plt Count 241 k/uL (150-450) 02/07/18 06:30 Neutrophils % 74 % 02/07/18 06:30 Lymphocytes % 14 % 02/07/18 06:30 Monocytes % 7 % 02/07/18 06:30 Eosinophils % 2 % 02/07/18 06:30 Basophils % 0 % 02/07/18 06:30 Neutrophils # 6.8 k/uL (1.3-7.7) 02/07/18 06:30 Lymphocytes # 1.3 k/uL (1.0-4.8) 02/07/18 06:30 Monocytes # 0.6 k/uL (0-1.0) 02/07/18 06:30 Eosinophils # 0.2 k/uL (0-0.7) 02/07/18 06:30 Basophils # 0.0 k/uL (0-0.2) 02/07/18 06:30 Macrocytosis Slight 02/07/18 06:30 PT 25.2 sec (9.0-12.0) H 02/07/18 06:30 INR 2.8 (<1.2) H 02/07/18 06:30 APTT 31.1 sec (22.0-30.0) H 02/05/18 17:48 Sodium 136 mmol/L (137-145) L 02/07/18 06:30 Potassium 4.4 mmol/L (3.5-5.1) 02/07/18 06:30 Chloride 97 mmol/L (98-107) L 02/07/18 06:30 Carbon Dioxide 26 mmol/L (22-30) 02/07/18 06:30 Anion Gap 13 mmol/L 02/07/18 06:30 BUN 38 mg/dL (9-20) H 02/07/18 06:30 Creatinine 1.50 mg/dL (0.66-1.25) H 02/07/18 06:30 Est GFR (CKD-EPI)AfAm 50 (>60 ml/min/1.73 sqM) 02/07/18 06:30 Est GFR (CKD-EPI)NonAf 43 (>60 ml/min/1.73 sqM) 02/07/18 06:30 Glucose 108 mg/dL (74-99) H 02/07/18 06:30 Calcium 8.9 mg/dL (8.4-10.2) 02/07/18 06:30 Magnesium 2.2 mg/dL (1.6-2.3) 02/05/18 17:48 Total Bilirubin 0.9 mg/dL (0.2-1.3) 02/07/18 06:30 AST 33 U/L (17-59) 02/07/18 06:30 ALT 35 U/L (21-72) 02/07/18 06:30 Alkaline Phosphatase 107 U/L (38-126) 02/07/18 06:30 Total Creatine Kinase 45 U/L (55-170) L 02/06/18 06:36 CK-MB (CK-2) 1.1 ng/mL (0.0-2.4) 02/06/18 06:36 CK-MB (CK-2) Rel Index 2.4 02/06/18 06:36 Troponin I 0.033 ng/mL (0.000-0.034) 02/06/18 06:36 NT-Pro-B Natriuret Pep 2640 pg/mL 02/05/18 17:48 Total Protein 7.1 g/dL (6.3-8.2) 02/07/18 06:30 Albumin 4.1 g/dL (3.5-5.0) 02/07/18 06:30 Vital Signs 02/05/18 02/05/18 02/05/18 17:29 17:41 17:49 Temperature 98.5 F Pulse Rate 60 63 Pulse Rate [ Pulse Oximetery ] Respiratory 18 16 18 Rate Blood Pressure 184/81 Blood Pressure [Sitting] O2 Sat by Pulse 93 L Oximetry 02/05/18 02/05/18 02/05/18 17:51 18:39 19:43 Temperature Pulse Rate 60 59 L Pulse Rate [ Pulse Oximetery ] Respiratory 16 18 Rate Blood Pressure 178/79 Blood Pressure [Sitting] O2 Sat by Pulse 98 95 Oximetry 02/05/18 02/05/18 02/05/18 19:49 19:59 20:43 Temperature Pulse Rate 62 59 L 60 Pulse Rate [ Pulse Oximetery ] Respiratory 16 16 18 Rate Blood Pressure 188/91 Blood Pressure [Sitting] O2 Sat by Pulse 98 Oximetry 02/05/18 02/06/18 02/06/18 22:00 00:30 05:38 Temperature 98.6 F 97.6 F Pulse Rate Pulse Rate [ 62 65 62 Pulse Oximetery ] Respiratory 16 18 Rate Blood Pressure Blood Pressure 189/80 141/78 149/66 [Sitting] O2 Sat by Pulse 95 93 L Oximetry 02/06/18 02/06/18 02/06/18 08:00 08:34 08:46 Temperature Pulse Rate 60 60 Pulse Rate [ 62 Pulse Oximetery ] Respiratory 18 Rate Blood Pressure Blood Pressure [Sitting] O2 Sat by Pulse Oximetry 02/06/18 02/06/18 02/06/18 11:37 11:57 14:24 Temperature 97.4 F L Pulse Rate 64 60 Pulse Rate [ 60 Pulse Oximetery ] Respiratory 16 Rate Blood Pressure Blood Pressure 105/53 [Sitting] O2 Sat by Pulse 96 Oximetry 02/06/18 02/06/18 02/06/18 15:19 15:29 16:00 Temperature Pulse Rate 60 62 Pulse Rate [ 60 Pulse Oximetery ] Respiratory 16 Rate Blood Pressure Blood Pressure [Sitting] O2 Sat by Pulse 96 Oximetry 02/06/18 02/06/18 02/06/18 19:32 19:43 19:45 Temperature Pulse Rate 64 60 Pulse Rate [ Pulse Oximetery ] Respiratory Rate Blood Pressure Blood Pressure [Sitting] O2 Sat by Pulse 92 L Oximetry 02/06/18 02/07/18 02/07/18 21:54 05:13 08:51 Temperature 97.8 F 96.7 F L Pulse Rate 60 Pulse Rate [ 61 54 L Pulse Oximetery ] Respiratory 16 16 Rate Blood Pressure Blood Pressure 125/60 140/66 [Sitting] O2 Sat by Pulse 90 L 92 L Oximetry 02/07/18 02/07/18 02/07/18 09:07 12:32 12:43 Temperature Pulse Rate 60 64 60 Pulse Rate [ Pulse Oximetery ] Respiratory Rate Blood Pressure Blood Pressure [Sitting] O2 Sat by Pulse Oximetry Discharge medications Zithromax Ceclor Prednisone Dosepak Resume home medications Discharge diagnoses Acute on chronic diastolic congestive heart failure but currently improved to continue by mouth Lasix Bronchitis initially it was thought that the patient does have pneumonia Pulmonology following to continue antibiotics for around a week Follow-up with primary care physician and pulmonology May need to check INR as an outpatient by primary care physician to avoid fluctuation as the patient is on antibiotics that may interfere with the INR Currently INR within therapeutic range Attending physician: Eri Choudhury MD Consults: 02/05/18 19:42 Consult Physician Routine Consulting Provider: Guillaume Ballard Consult Reason/Comments: known Do you want consulting provider notified?: Yes Primary care physician: Brayden Lundberg Patient Condition at Discharge: Fair Plan - Discharge Summary Discharge Rx Participant: No New Discharge Prescriptions: New Polyethylene Glycol 3350 [Miralax] 17 gm PO DAILY powd.pack Continue Ferrous Sulfate [Iron (65 MG Elemental)] 325 mg PO DAILY Carvedilol 25 mg PO DAILY oxyCODONE HCL 15 mg PO BID PRN PRN Reason: Pain LORazepam [Ativan] 0.5 mg PO BID PRN PRN Reason: Anxiety Pantoprazole [Protonix] 40 mg PO QAM Ubidecarenone [Co Q-10] 200 mg PO DAILY Sucralfate [Carafate] 1 gm PO BID-W/MEALS Lovastatin [Mevacor] 20 mg PO HS Morphine Sulfate ER [Ms Contin] 30 mg PO Q12HR traZODone HCL 100 mg PO HS Warfarin [Coumadin] 5 mg PO HS Warfarin [Coumadin] 2 mg PO HS Furosemide [Lasix] 40 mg PO BID #60 tablet Citalopram Hydrobromide [CeleXA] 10 mg PO DAILY Discontinued Promethazine [Phenergan] 12.5 mg PO Q4HR PRN PRN Reason: Nausea And Vomiting Amoxicillin 500 mg PO Q8H Discharge Medication List Carvedilol 25 mg PO DAILY 06/19/15 [History] Ferrous Sulfate [Iron (65 MG Elemental)] 325 mg PO DAILY 06/19/15 [History] oxyCODONE HCL 15 mg PO BID PRN 06/19/15 [History] LORazepam [Ativan] 0.5 mg PO BID PRN 07/28/16 [History] Pantoprazole [Protonix] 40 mg PO QAM 07/28/16 [History] Sucralfate [Carafate] 1 gm PO BID-W/MEALS 07/28/16 [History] Ubidecarenone [Co Q-10] 200 mg PO DAILY 07/28/16 [History] Lovastatin [Mevacor] 20 mg PO HS 11/20/17 [History] Morphine Sulfate ER [Ms Contin] 30 mg PO Q12HR 11/20/17 [History] Warfarin [Coumadin] 2 mg PO HS 11/20/17 [History] Warfarin [Coumadin] 5 mg PO HS 11/20/17 [History] traZODone HCL 100 mg PO HS 11/20/17 [History] Furosemide [Lasix] 40 mg PO BID #60 tablet 11/21/17 [Rx] Citalopram Hydrobromide [CeleXA] 10 mg PO DAILY 02/05/18 [History] Polyethylene Glycol 3350 [Miralax] 17 gm PO DAILY powd.pack 02/07/18 [Rx] Follow up Appointment(s)/Referral(s): [facility], [NON-STAFF] - Brayden Lundberg MD [Primary Care Provider] - 1-2 days Guillaume Ballard MD [STAFF PHYSICIAN] - 1 Week Discharge Disposition: HOME SELF-CARE
== END 2018-02-07 14:23 | disposition home health service (06) | DRG 291 ==
LOC: EC 17:24 → 5MS5E 19:43
PROVIDERS: ADMIT Internal Medicine; ATTEND Internal Medicine
DX: I11.0 Hypertensive heart disease with heart failure (principal); J96.21 Acute and chronic respiratory failure with hypoxia; E78.5 Hyperlipidemia, unspecified; F32.9 Major depressive disorder, single episode, unspecified; F41.9 Anxiety disorder, unspecified; G89.4 Chronic pain syndrome; I25.10 Atherosclerotic heart disease of native coronary artery without angina pectoris; I25.2 Old myocardial infarction; I27.20 Pulmonary hypertension, unspecified; I48.2 Chronic atrial fibrillation; I50.33 Acute on chronic diastolic (congestive) heart failure; N40.0 Benign prostatic hyperplasia without lower urinary tract symptoms; R59.0 Localized enlarged lymph nodes; J44.9 Chronic obstructive pulmonary disease, unspecified; Z79.899 Other long term (current) drug therapy; Z79.01 Long term (current) use of anticoagulants; Z79.891 Long term (current) use of opiate analgesic; Z95.5 Presence of coronary angioplasty implant and graft; Z95.3 Presence of xenogenic heart valve; Z95.1 Presence of aortocoronary bypass graft; Z95.0 Presence of cardiac pacemaker; Z87.891 Personal history of nicotine dependence; Z86.718 Personal history of other venous thrombosis and embolism; Z85.46 Personal history of malignant neoplasm of prostate; Z90.49 Acquired absence of other specified parts of digestive tract; Z98.42 Cataract extraction status, left eye; Z98.41 Cataract extraction status, right eye; Z96.1 Presence of intraocular lens; Z82.49 Family history of ischemic heart disease and other diseases of the circulatory system; Z80.9 Family history of malignant neoplasm, unspecified
CPT/HCPCS: 36415; 71046; 80053; 82550; 82553; 83735; 83880; 84484; 85025; 85610; 85730; 87040; 87070; 87205; 93005; 94640; 96361; 96374; 99285

== ENCOUNTER 2018-03-10 08:07 | Inpatient (IN) | payer MEDICARE ==
[2018-03-10] MEDS ORDERED: ALBUTEROL NEBULIZED 2.5 MG/3 ML INHALATION STA (08:26)
[2018-03-10] MEDS ORDERED: IPRATROPIUM 0.5 MG/2.5 ML NEBU INHALATION STA (08:26)
[2018-03-10 08:53] LABS: Basophils % (A) 0 %; Eosinophils # (A) 0.2 k/uL (0-0.7); Eosinophils % (A) 2 %; HCT 36.4 % (39.0-53.0); HGB 12.1 gm/dL (13.0-17.5); Lymphocytes # (A) 1.1 k/uL (1.0-4.8); Lymphocytes % (A) 13 %; MCH 32.9 pg (25.0-35.0); MCHC 33.3 g/dL (31.0-37.0); MCV 98.8 fL (80.0-100.0); Mean Platelet Volume 6.6; Monocytes # (A) 0.8 k/uL (0-1.0); Monocytes % (A) 9 %; Neutrophils # (A) 6.5 k/uL (1.3-7.7); Neutrophils % (A) 74 %; Platelet Count 170 k/uL (150-450); RBC 3.68 m/uL (4.30-5.90); WBC 8.9 k/uL (3.8-10.6)
[2018-03-10 09:04] LABS: INR 2.5 (<1.2); Partial Thromboplastin Time 29.4 sec (22.0-30.0); Prothrombin Time 22.3 sec (9.0-12.0)
--- NOTE | 2018-03-10 09:04 | ED ---
General Adult HPI - General Chief complaint: Shortness of Breath Stated complaint: JOSELO Time Seen by Provider: 03/10/18 08:20 Source: patient, RN notes reviewed, old records reviewed Mode of arrival: wheelchair Limitations: no limitations - History of Present Illness Initial comments: This is an 80-year-old male the ER for evaluation of shortness of breath. Patient is shortness of breath today just like he has in the past. Patient unsure of cause of his shortness of breath he does have lung doctor for his COPD , is been increasing his oxygen at home with no significant help. Patient is to lower extremity swelling as well mild bleeding from his left leg alone he states is chronic. Issue, denies the possibility of his legs being infected even though they are red and mildly swollen. - Related Data Home Medications Medication Instructions Recorded Confirmed Carvedilol 25 mg PO DAILY 06/19/15 03/10/18 Ferrous Sulfate [Iron (65 MG 325 mg PO DAILY 06/19/15 03/10/18 Elemental)] oxyCODONE HCL 15 mg PO BID PRN 06/19/15 03/10/18 LORazepam [Ativan] 0.5 mg PO BID PRN 07/28/16 03/10/18 Sucralfate [Carafate] 1 gm PO BID-W/MEALS 07/28/16 03/10/18 Ubidecarenone [Co Q-10] 200 mg PO DAILY 07/28/16 03/10/18 Lovastatin [Mevacor] 20 mg PO HS 11/20/17 03/10/18 Morphine Sulfate ER [Ms Contin] 30 mg PO Q12HR 11/20/17 03/10/18 Warfarin [Coumadin] 2 mg PO HS 11/20/17 03/10/18 Warfarin [Coumadin] 5 mg PO HS 11/20/17 03/10/18 traZODone HCL 100 mg PO HS 11/20/17 03/10/18 Lisinopril [Zestril] 2.5 mg PO DAILY 03/10/18 03/10/18 Promethazine HCl 12.5 mg PO BID PRN 03/10/18 03/10/18 Previous Rx's Medication Instructions Recorded Furosemide [Lasix] 40 mg PO BID #60 tablet 11/21/17 Polyethylene Glycol 3350 [Miralax] 17 gm PO DAILY powd.pack 02/07/18 Allergies Allergy/AdvReac Type Severity Reaction Status Date / Time No Known Allergies Allergy Verified 03/10/18 08:52 Review of Systems ROS Statement: Those systems with pertinent positive or pertinent negative responses have been documented in the HPI. ROS Other: All systems not noted in ROS Statement are negative. 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 History of Any Multi-Drug Resistant Organisms: None Reported Past Surgical History: Appendectomy, Cardiac Valve Replacement, Cholecystectomy , Heart Catheterization, Heart Catheterization With Stent, Hernia Repair, Pacemaker, Prostate Surgery Additional Past Surgical History / Comment(s): aortic valve replacement, bilateral cataracts removal, penile implant x2, thoracentesis , tooth extractions Past Anesthesia/Blood Transfusion Reactions: Previous Problems w/ Anesthesia Additional Past Anesthesia/Blood Transfusion Reaction / Comment(s): "one time BP dropped too low" Date of Last Stent Placement:: 2005 Type of Cardiac Device: Permanent Pacemaker Device Placement Date:: approx 12 yrs ago Past Psychological History: Anxiety Smoking Status: Former smoker Past Alcohol Use History: None Reported Past Drug Use History: None Reported - Past Family History Brother(s) Family Medical History: Cancer Sister(s) Family Medical History: Cancer Father Family Medical History: Cancer Additional Family Medical History / Comment(s): HEART PROLEMS AND VASUCLAR PROBLEMS HAD CABG Mother Family Medical History: Myocardial Infarction (ID) Additional Family Medical History / Comment(s): HAD OPEN HEART SX. General Exam Limitations: no limitations General appearance: alert, in no apparent distress Head exam: Present: atraumatic, normocephalic, normal inspection Eye exam: Present: normal appearance, PERRL, EOMI. Absent: scleral icterus, conjunctival injection, periorbital swelling ENT exam: Present: normal exam, mucous membranes moist Neck exam: Present: normal inspection. Absent: tenderness, meningismus, lymphadenopathy Respiratory exam: Present: normal lung sounds bilaterally, wheezes, decreased breath sounds, prolonged expiratory. Absent: respiratory distress, rales, rhonchi, stridor Cardiovascular Exam: Present: regular rate, normal rhythm, normal heart sounds. Absent: systolic murmur, diastolic murmur, rubs, gallop, clicks GI/Abdominal exam: Present: soft, normal bowel sounds. Absent: distended, tenderness, guarding, rebound, rigid Extremities exam: Present: normal inspection, full ROM, normal capillary refill. Absent: tenderness, pedal edema, joint swelling, calf tenderness Back exam: Present: normal inspection Neurological exam: Present: alert, oriented X3, CN II-XII intact Psychiatric exam: Present: normal affect, normal mood Skin exam: Present: warm, dry, intact, normal color. Absent: rash Course Vital Signs 03/10/18 03/10/18 03/10/18 08:08 08:57 09:10 Temperature 98.4 F Pulse Rate 60 65 60 Respiratory 20 Rate Blood Pressure 167/68 O2 Sat by Pulse 88 L Oximetry 03/10/18 03/10/18 09:35 10:13 Temperature Pulse Rate 66 60 Respiratory 22 Rate Blood Pressure 170/75 O2 Sat by Pulse 94 L Oximetry - Reevaluation(s) Reevaluation #1: 03/10/18 10:17 Patient shows improvement with increased oxygenation and breathing treatment EKG Findings - EKG Comments: EKG Findings:: EKG shows paced rhythm rate of 60, QRS 74, QTc 542 Medical Decision Making - Medical Decision Making 80 female the ER today. This patient presents today for evaluation regards to shortness of breath and hypoxia. Positive pneumonia. Patient be admitted for IV antibiotics - Lab Data Result diagrams: 03/10/18 08:36 03/10/18 08:36 Lab Results 03/10/18 03/10/18 03/10/18 Range/Units 08:36 08:36 08:36 WBC 8.9 (3.8-10.6) k/uL RBC 3.68 L (4.30-5.90) m/uL Hgb 12.1 L (13.0-17.5) gm/dL Hct 36.4 L (39.0-53.0) % MCV 98.8 (80.0-100.0) fL MCH 32.9 (25.0-35.0) pg MCHC 33.3 (31.0-37.0) g/dL RDW 14.0 (11.5-15.5) % Plt Count 170 (150-450) k/uL Neutrophils % 74 % Lymphocytes % 13 % Monocytes % 9 % Eosinophils % 2 % Basophils % 0 % Neutrophils # 6.5 (1.3-7.7) k/uL Lymphocytes # 1.1 (1.0-4.8) k/uL Monocytes # 0.8 (0-1.0) k/uL Eosinophils # 0.2 (0-0.7) k/uL Basophils # 0.0 (0-0.2) k/uL PT (9.0-12.0) sec INR (<1.2) APTT (22.0-30.0) sec D-Dimer (<0.60) mg/L FEU Sodium 134 L (137-145) mmol/L Potassium 4.8 (3.5-5.1) mmol/L Chloride 97 L (98-107) mmol/L Carbon Dioxide 29 (22-30) mmol/L Anion Gap 8 mmol/L BUN 35 H (9-20) mg/dL Creatinine 1.09 (0.66-1.25) mg/dL Est GFR (CKD-EPI)AfAm 73 (>60 ml/min/1.73 sqM) Est GFR (CKD-EPI)NonAf 63 (>60 ml/min/1.73 sqM) Glucose 118 H (74-99) mg/dL Calcium 8.7 (8.4-10.2) mg/dL Magnesium 2.1 (1.6-2.3) mg/dL Total Bilirubin 1.0 (0.2-1.3) mg/dL AST 55 (17-59) U/L ALT 32 (21-72) U/L Alkaline Phosphatase 113 (38-126) U/L Total Creatine Kinase 52 L (55-170) U/L CK-MB (CK-2) 1.1 (0.0-2.4) ng/mL CK-MB (CK-2) Rel Index 2.1 Troponin I 0.043 H* (0.000-0.034) ng/mL NT-Pro-B Natriuret Pep pg/mL Total Protein 7.2 (6.3-8.2) g/dL Albumin 4.1 (3.5-5.0) g/dL 03/10/18 03/10/18 Range/Units 08:36 08:36 WBC (3.8-10.6) k/uL RBC (4.30-5.90) m/uL Hgb (13.0-17.5) gm/dL Hct (39.0-53.0) % MCV (80.0-100.0) fL MCH (25.0-35.0) pg MCHC (31.0-37.0) g/dL RDW (11.5-15.5) % Plt Count (150-450) k/uL Neutrophils % % Lymphocytes % % Monocytes % % Eosinophils % % Basophils % % Neutrophils # (1.3-7.7) k/uL Lymphocytes # (1.0-4.8) k/uL Monocytes # (0-1.0) k/uL Eosinophils # (0-0.7) k/uL Basophils # (0-0.2) k/uL PT 22.3 H (9.0-12.0) sec INR 2.5 H (<1.2) APTT 29.4 (22.0-30.0) sec D-Dimer 1.34 H (<0.60) mg/L FEU Sodium (137-145) mmol/L Potassium (3.5-5.1) mmol/L Chloride (98-107) mmol/L Carbon Dioxide (22-30) mmol/L Anion Gap mmol/L BUN (9-20) mg/dL Creatinine (0.66-1.25) mg/dL Est GFR (CKD-EPI)AfAm (>60 ml/min/1.73 sqM) Est GFR (CKD-EPI)NonAf (>60 ml/min/1.73 sqM) Glucose (74-99) mg/dL Calcium (8.4-10.2) mg/dL Magnesium (1.6-2.3) mg/dL Total Bilirubin (0.2-1.3) mg/dL AST (17-59) U/L ALT (21-72) U/L Alkaline Phosphatase (38-126) U/L Total Creatine Kinase (55-170) U/L CK-MB (CK-2) (0.0-2.4) ng/mL CK-MB (CK-2) Rel Index Troponin I (0.000-0.034) ng/mL NT-Pro-B Natriuret Pep 5030 pg/mL Total Protein (6.3-8.2) g/dL Albumin (3.5-5.0) g/dL - Radiology Data Radiology results: report reviewed (chest x-ray is positive for pneumonia), image reviewed Critical Care Time Critical Care Time: Yes Total Critical Care Time: 31 Disposition Clinical Impression: CHF exacerbation, Acute exacerbation of chronic obstructive airways disease, Community acquired pneumonia, Acute and chronic respiratory failure with hypoxia Disposition: ADMITTED IP TO THIS HOSP Condition: Fair Is patient prescribed a controlled substance at d/c from ED?: No Referrals: Adolfo Lieberman DO [Primary Care Provider] - 1-2 days
[2018-03-10 09:06] LABS: Albumin 4.1 g/dL (3.5-5.0); Calcium 8.7 mg/dL (8.4-10.2); Magnesium 2.1 mg/dL (1.6-2.3); Total Protein 7.2 g/dL (6.3-8.2)
--- NOTE | 2018-03-10 09:06 | XR ---
EXAMINATION TYPE: XR chest 2V DATE OF EXAM: 03/10/2018 COMPARISON: 02/06/2018 HISTORY: Shortness of breath TECHNIQUE: Frontal and lateral views of the chest are obtained. FINDINGS: Scattered senescent parenchymal changes noted. Hyperinflation compatible with COPD. Persistent pleural-parenchymal opacity right lung base which may reflect infiltrate, atelectasis as w ell as small effusions. The remaining lungs are demonstrated evidence for additional infiltrate. Mild stranding left medial lung base. Heart size is stable. Mediastinal structures are stable and grossly unremarkable. No evidence for hilar prominence. Degenerative changes dorsal spine. IMPRESSION: 1. Persistent pleural-parenchymal opacity right lung base which may reflect infiltrate, atelectasis a s well as small effusions. The remaining lungs are demonstrated evidence for additional infiltrate. M ild stranding left medial lung base.
[2018-03-10 09:11] LABS: Potassium 4.8 mmol/L (3.5-5.1)
[2018-03-10 09:13] LABS: D-Dimer 1.34 mg/L FEU (<0.60)
[2018-03-10 09:30] LABS: Creatine Kinase MB 1.1 ng/mL (0.0-2.4); Troponin I 0.043 ng/mL (0.000-0.034)
[2018-03-10] MEDS ORDERED: PNEUMONIA PROTOCOL UTILIZED 1 EACH MISC PO PRN (10:15)
[2018-03-10] MEDS ORDERED: cefTRIAXone IN SWFI 1,000 MG/10 ML SYRINGE IVP STA (10:15)
[2018-03-10] MEDS ORDERED: AZITHROMYCIN 500 MG in SODIUM CHLORIDE 0.9% 250 ML IVPB STA (10:15)
[2018-03-10] MEDS ORDERED: AZITHROMYCIN 500 MG in DEXTROSE 5% IN WATER 250 ML IVPB STA ×2 (10:22)
--- NOTE | 2018-03-10 13:43 | P.CNPUL ---
History of Present Illness Consult date: 03/10/18 Requesting physician: Drew Nevarez Reason for consult: dyspnea, abnormal CXR/CT Chief complaint: Shortness of breath History of present illness: This is a very pleasant 82-year-old gentleman who follows with Dr. Lundberg as his primary care physician. He has a history of coronary artery disease, aortic valve stenosis with previous bypass surgery and valve replacement, chronic atrial fibrillation status post permanent pacemaker implantation on oral anticoagulants, DVT of the left lower extremity, congestive heart failure, pulmonary hypertension. The patient also has a history of recurrent pleural effusions with initial thoracentesis done here in June 2017, thoracentesis of the right lung again in August 2017 in [place]. The patient also has a history of sepsis with bacteremia requiring PICC line insertion for prolonged antibiotics. He has been admitted here a couple of times this year for shortness of breath, cough and congestion. The right pleural effusion is loculated and he has not had any subsequent thoracentesis done. He follows with Dr. Ballard in our office. FEV1 value 73% of predicted. He does have a pericarinal lymph node measuring 2.5 x 1.7 cm. There is an abnormal anterior superior mediastinal lymph node just anterior to left common carotid artery measuring 1.8 x 1.4 cm. He was treating the patient conservatively. Patient presented here to the emergency room again this morning with complaints of shortness of breath. He is seen there in consultation. He denies any cough or congestion. No fever chills or night sweats. No nausea vomiting or diarrhea. Mainly of progressive shortness of breath over the past several days. Chest x- ray continues to show persistent pleuroparenchymal opacity of the right lung base. There is mild stranding of the left medial lung base. No clear evidence of pneumonia. He is maintaining good O2 saturations in the upper 90s on 2 L/m per nasal cannula. He is afebrile. White count 8.9. Hemoglobin 12.1. INR 2.5. Creatinine 1.09. Troponin 0.043. ProBNP 5030. Review of Systems Constitutional: Denies chills, Denies fever Eyes: denies blurred vision Ears: bilateral: decreased hearing Ears, nose, mouth and throat: Denies headache, Denies sore throat Cardiovascular: Denies chest pain, Denies shortness of breath Respiratory: Reports dyspnea, Reports home oxygen Gastrointestinal: Denies abdominal pain, Denies diarrhea, Denies nausea, Denies vomiting Genitourinary: Reports as per HPI Musculoskeletal: Denies myalgias Integumentary: Denies pruritus, Denies rash Neurological: Denies numbness, Denies weakness Psychiatric: Denies anxiety, Denies depression Endocrine: Denies fatigue, Denies weight change Hematologic/Lymphatic: Reports as per HPI Allergic/Immunologic: Reports as per HPI Past Medical History Past Medical History: Coronary Artery Disease (CAD), Chest Pain / Angina, Heart Failure, Deep Vein Thrombosis (DVT), Hyperlipidemia, Hypertension, Myocardial Infarction ([place]), Prostate Disorder Additional Past Medical History / Comment(s): Coronary artery disease, aortic valve replacement with a prostatic aortic valve, chronic atrial fibrillation, pulmonary hypertension with evidence of right-sided heart failure, remote history of DVT back in 2006, hypertension, hyperlipidemia, BPH, prostate cancer , recurrent right-sided pleural effusion, sepsis in general 2018, home 02 2 liters nc/hs, Last Myocardial Infarction Date:: 2005? History of Any Multi-Drug Resistant Organisms: None Reported Past Surgical History: Appendectomy, Cardiac Valve Replacement, Cholecystectomy , Heart Catheterization, Heart Catheterization With Stent, Hernia Repair, Pacemaker, Prostate Surgery Additional Past Surgical History / Comment(s): aortic valve replacement, bilateral cataracts removal, penile implant x2, thoracentesis , tooth extractions Past Anesthesia/Blood Transfusion Reactions: Previous Problems w/ Anesthesia Additional Past Anesthesia/Blood Transfusion Reaction / Comment(s): "one time BP dropped too low" Date of Last Stent Placement:: 2005 Type of Cardiac Device: Permanent Pacemaker Device Placement Date:: approx 12 yrs ago Past Psychological History: Anxiety Smoking Status: Former smoker Past Alcohol Use History: None Reported Past Drug Use History: None Reported - Past Family History Brother(s) Family Medical History: Cancer Sister(s) Family Medical History: Cancer Father Family Medical History: Cancer Additional Family Medical History / Comment(s): HEART PROLEMS AND VASUCLAR PROBLEMS HAD CABG Mother Family Medical History: Myocardial Infarction ([place]) Additional Family Medical History / Comment(s): HAD OPEN HEART SX. Medications and Allergies Home Medications Medication Instructions Recorded Confirmed Type Carvedilol 25 mg PO DAILY 06/19/15 03/10/18 History Ferrous Sulfate [Iron (65 MG 325 mg PO DAILY 06/19/15 03/10/18 History Elemental)] oxyCODONE HCL 15 mg PO BID PRN 06/19/15 03/10/18 History LORazepam [Ativan] 0.5 mg PO BID PRN 07/28/16 03/10/18 History Sucralfate [Carafate] 1 gm PO BID-W/MEALS 07/28/16 03/10/18 History Ubidecarenone [Co Q-10] 200 mg PO DAILY 07/28/16 03/10/18 History Lovastatin [Mevacor] 20 mg PO HS 11/20/17 03/10/18 History Morphine Sulfate ER [Ms Contin] 30 mg PO Q12HR 11/20/17 03/10/18 History Warfarin [Coumadin] 2 mg PO HS 11/20/17 03/10/18 History Warfarin [Coumadin] 5 mg PO HS 11/20/17 03/10/18 History traZODone HCL 100 mg PO HS 11/20/17 03/10/18 History Furosemide [Lasix] 40 mg PO BID #60 tablet 11/21/17 03/10/18 Rx Polyethylene Glycol 3350 [Miralax] 17 gm PO DAILY powd.pack 02/07/18 03/10/18 Rx Lisinopril [Zestril] 2.5 mg PO DAILY 03/10/18 03/10/18 History Promethazine HCl 12.5 mg PO BID PRN 03/10/18 03/10/18 History Allergies Allergy/AdvReac Type Severity Reaction Status Date / Time No Known Allergies Allergy Verified 03/10/18 08:52 Physical Exam Vitals: Vital Signs Temp Pulse Resp BP Pulse Ox 03/10/18 13:03 61 18 183/82 97 03/10/18 11:48 60 18 182/77 92 L 03/10/18 10:13 60 22 170/75 94 L 03/10/18 09:35 66 03/10/18 09:10 60 03/10/18 08:57 65 03/10/18 08:08 98.4 F 60 20 167/68 88 L Intake and Output 03/09/18 03/10/18 03/10/18 22:59 06:59 14:59 Other: Weight 74.843 kg - Constitutional General appearance: average body habitus, no acute distress - EENT Eyes: EOMI, PERRLA ENT: hard of hearing Ears: bilateral: normal - Neck Neck: normal ROM Carotids: bilateral: upstroke normal Thyroid: bilateral: normal size - Respiratory Respiratory: right: rales - Cardiovascular Rhythm: regular Heart sounds: normal: S1, S2 - Gastrointestinal General gastrointestinal: normal bowel sounds - Integumentary Integumentary: normal turgor - Neurologic Neurologic: CNII-XII intact - Musculoskeletal Musculoskeletal: generalized weakness - Psychiatric Psychiatric: A&O x's 3, appropriate affect, intact judgment & insight Results - Laboratory Findings CBC and BMP: 03/10/18 08:36 03/10/18 08:36 PT/INR, D-dimer PT 22.3 sec (9.0-12.0) H 03/10/18 08:36 INR 2.5 (<1.2) H 03/10/18 08:36 D-Dimer 1.34 mg/L FEU (<0.60) H 03/10/18 08:36 Abnormal lab findings: Abnormal Labs 03/10/18 03/10/18 03/10/18 08:36 08:36 08:36 RBC 3.68 L Hgb 12.1 L Hct 36.4 L PT INR D-Dimer Sodium 134 L Chloride 97 L BUN 35 H Glucose 118 H Total Creatine Kinase 52 L Troponin I 0.043 H* 03/10/18 08:36 RBC Hgb Hct PT 22.3 H INR 2.5 H D-Dimer 1.34 H Sodium Chloride BUN Glucose Total Creatine Kinase Troponin I - Diagnostic Findings Chest x-ray: image reviewed Assessment and Plan Assessment: Impression: #1 Acute on chronic hypoxic respiratory failure secondary to an acute exacerbation of diastolic congestive heart failure, stable chronic right-sided pleural effusion. #2 Acute on chronic diastolic congestive heart failure. Preserved left ventricular systolic function with ejection fraction 50-55%. #3 History of stable, loculated right pleural effusion. #4 Pericarinal lymph node measuring 2.5 x 1.7 cm, abnormal anterior superior mediastinal lymph node measuring 1.8 x 1.4 cm. Being followed in the outpatient setting. #5 Chronic atrial fibrillation, anticoagulated with warfarin. #6 Cardiac arrhythmia requiring permanent pacemaker implantation. #7 Remote history of DVT in 2006. #8 Hypertension. #9 Hyperlipidemia. #10 Coronary artery disease status post coronary artery bypass grafting. #11 Aortic valve stenosis status post aortic valve replacement utilizing a bioprosthetic aortic valve. #12 History of prostate cancer. #13 Chronic pain syndrome. #14 Anxiety/depression. Plan: The patient was seen and evaluated by Dr. Ballard. Chest x-ray was reviewed. We will go ahead and obtain another ultrasound of the right chest to make sure there is no free flowing fluid on this admission. If so will plan for thoracentesis. Warfarin only to be held. We will send it for cytology. Follow- up the lymph nodes in the outpatient setting via PET scan if the patient is interested in any subsequent intervention. In the interim we'll continue with his current medications. Transfer to [facility] care once a bed is available. We will continue to follow and make further recommendations based on his clinical status. I, the cosigning physician, performed a history & physical examination of the patient. Lungs sounds diminished in the right lung base. Maintaining good O2 saturations in the 90s on 2 L/m per nasal cannula. I discussed the assessment and plan of care with my nurse practitioner, Margarita Soto. I attest to the above note as dictated by her. Time with Patient: Greater than 30
--- NOTE | 2018-03-10 18:04 | P.HPIM ---
History of Present Illness 82 years old male with past medical history of atrial fibrillation, status post pacemaker area coronary artery disease, status post cardiac cath. heart failure , COPD, DVT on Coumadin, GERD, hyperlipidemia, hypertension, pneumonia, prostate disorder on home oxygen, recurrent pleural effusion,, prostate cancer status post surgery, aortic valve replacement in 2016. He presents because of progressive dyspnea over several days, pt is not very good historian , he states he has dyspnea on exertion all the time but yesterday it got worse overnight , he tried to increase his home oxygen from 2 to 3 L/M however did not help so decided to come to ED, pt denies to me chest pain , no cough or phlegm. no change in urine or bowel habits , no fever. Review of Systems CONSTITUTIONAL: No fever, no malaise, no fatigue. HEENT: No recent visual problems or hearing problems. Denied any sore throat. CARDIOVASCULAR: No orthopnea, PND, no palpitations, no syncope. PULMONARY: no cough, no hemoptysis. GASTROINTESTINAL: No diarrhea, no nausea, no vomiting, no abdominal pain. Normoactive bowel sounds. NEUROLOGICAL: No headaches, no weakness, no numbness. HEMATOLOGICAL: Denies any bleeding or petechiae. GENITOURINARY: Denies any burning micturition, frequency, or urgency. MUSCULOSKELETAL/RHEUMATOLOGICAL: Denies any joint pain, swelling, or any muscle pain. ENDOCRINE: Denies any polyuria or polydipsia. Past Medical History Past Medical History: Atrial Fibrillation, Coronary Artery Disease (CAD), Cancer , Chest Pain / Angina, Heart Failure, COPD, Deep Vein Thrombosis (DVT), GERD/ Reflux, Hyperlipidemia, Hypertension, Myocardial Infarction ([place]), Pneumonia, Prostate Disorder Additional Past Medical History / Comment(s): Home O2 at 2L/NC lately ATC, recurrent R pleural effusions, thoracic adenopathy, pneumonias, pneumonia with sepsis, bronchitis, bilateral lower leg edema/redness L lower leg, L leg DVT in 2006, chronic L leg pain/ neurological damage, BPH, prostrate cancer with surgery, constipation, recently had 4 teeth extracted Last Myocardial Infarction Date:: 2005 History of Any Multi-Drug Resistant Organisms: None Reported Past Surgical History: Appendectomy, Cardiac Valve Replacement, Cholecystectomy , Heart Catheterization, Heart Catheterization With Stent, Hernia Repair, Pacemaker, Prostate Surgery Additional Past Surgical History / Comment(s): 2016 aortic valve replacement, bilateral cataracts removal, prostatectomy, penile implant x2, R sided thoracentesises, bilateral inguinal hernia repair, L leg dvt surgically removed , colonoscopies. Past Anesthesia/Blood Transfusion Reactions: Previous Problems w/ Anesthesia Additional Past Anesthesia/Blood Transfusion Reaction / Comment(s): "one time BP dropped too low" Date of Last Stent Placement:: 2005 Type of Cardiac Device: Permanent Pacemaker Device Placement Date:: 2004? Smoking Status: Former smoker - Past Family History Brother(s) Family Medical History: Cancer Sister(s) Family Medical History: Cancer Father Family Medical History: Cancer Additional Family Medical History / Comment(s): Father had prostrate cancer. He had CAD/CABG. He at the age of 78yrs during coronary angioplasty. Mother Family Medical History: Myocardial Infarction ([place]) Additional Family Medical History / Comment(s): Mother had a VT at the age of 35yrs. She had CABG. She lived to be 93 yrs old. Medications and Allergies Home Medications Medication Instructions Recorded Confirmed Type Carvedilol 25 mg PO DAILY 06/19/15 03/10/18 History Ferrous Sulfate [Iron (65 MG 325 mg PO DAILY 06/19/15 03/10/18 History Elemental)] oxyCODONE HCL 15 mg PO BID PRN 06/19/15 03/10/18 History LORazepam [Ativan] 0.5 mg PO BID PRN 07/28/16 03/10/18 History Sucralfate [Carafate] 1 gm PO BID-W/MEALS 07/28/16 03/10/18 History Ubidecarenone [Co Q-10] 200 mg PO DAILY 07/28/16 03/10/18 History Lovastatin [Mevacor] 20 mg PO HS 11/20/17 03/10/18 History Morphine Sulfate ER [Ms Contin] 30 mg PO Q12HR 11/20/17 03/10/18 History Warfarin [Coumadin] 2 mg PO HS 11/20/17 03/10/18 History Warfarin [Coumadin] 5 mg PO HS 11/20/17 03/10/18 History traZODone HCL 100 mg PO HS 11/20/17 03/10/18 History Furosemide [Lasix] 40 mg PO BID #60 tablet 11/21/17 03/10/18 Rx Polyethylene Glycol 3350 [Miralax] 17 gm PO DAILY powd.pack 02/07/18 03/10/18 Rx Lisinopril [Zestril] 2.5 mg PO DAILY 03/10/18 03/10/18 History Promethazine HCl 12.5 mg PO BID PRN 03/10/18 03/10/18 History Allergies Allergy/AdvReac Type Severity Reaction Status Date / Time No Known Allergies Allergy Verified 03/10/18 08:52 Physical Exam Vitals: Vital Signs Temp Pulse Resp BP Pulse Ox 03/10/18 16:43 60 18 118/63 97 03/10/18 13:03 61 18 183/82 97 03/10/18 11:48 60 18 182/77 92 L 03/10/18 10:13 60 22 170/75 94 L 03/10/18 09:35 66 03/10/18 09:10 60 03/10/18 08:57 65 03/10/18 08:08 98.4 F 60 20 167/68 88 L Intake and Output 03/10/18 03/10/18 03/10/18 06:59 14:59 22:59 Other: Weight 74.843 kg GENERAL: The patient is alert and oriented x3, not in any acute distress. Well developed, well nourished. HEENT: Pupils are round and equally reacting to light. EOMI. No scleral icterus. No conjunctival pallor. Normocephalic, atraumatic. No pharyngeal erythema. No thyromegaly. CARDIOVASCULAR: S1 and S2 present. No murmurs, rubs, or gallops. PULMONARY: Chest is clear to auscultation, or crackles. B/L scattered wheezing ABDOMEN: Soft, nontender, nondistended, normoactive bowel sounds. No palpable organomegaly. MUSCULOSKELETAL: No joint swelling or deformity. EXTREMITIES: No cyanosis, clubbing, or pedal edema. NEUROLOGICAL: Gross neurological examination did not reveal any focal deficits. SKIN: No rashes. Results CBC & Chem 7: 03/10/18 08:36 03/10/18 08:36 Labs: Abnormal Lab Results - Last 24 Hours (Table) 03/10/18 03/10/18 03/10/18 Range/Units 08:36 08:36 08:36 RBC 3.68 L (4.30-5.90) m/uL Hgb 12.1 L (13.0-17.5) gm/dL Hct 36.4 L (39.0-53.0) % PT (9.0-12.0) sec INR (<1.2) D-Dimer (<0.60) mg/L FEU Sodium 134 L (137-145) mmol/L Chloride 97 L (98-107) mmol/L BUN 35 H (9-20) mg/dL Glucose 118 H (74-99) mg/dL Total Creatine Kinase 52 L (55-170) U/L Troponin I 0.043 H* (0.000-0.034) ng/mL 03/10/18 Range/Units 08:36 RBC (4.30-5.90) m/uL Hgb (13.0-17.5) gm/dL Hct (39.0-53.0) % PT 22.3 H (9.0-12.0) sec INR 2.5 H (<1.2) D-Dimer 1.34 H (<0.60) mg/L FEU Sodium (137-145) mmol/L Chloride (98-107) mmol/L BUN (9-20) mg/dL Glucose (74-99) mg/dL Total Creatine Kinase (55-170) U/L Troponin I (0.000-0.034) ng/mL Thrombosis Risk Factor Assmnt - Choose All That Apply Any of the Below Risk Factors Present?: Yes Each Factor Represents 1 point: Abnormal pulmonary function (COPD), Heart failure (<1month), Serious lung disease incl. pneumonia (< 1month) Other Risk Factors: Yes Each Risk Factor Represents 2 Points: Malignancy Each Risk Factor Represents 3 Points: Age 75 years or older, History of DVT/PE Other congenital or acquired thrombophilia - If yes, enter type in comment: No Thrombosis Risk Factor Assessment Total Risk Factor Score: 11 Thrombosis Risk Factor Assessment Level: High Risk Assessment and Plan Assessment: atrial fibrillation, status post pacemaker area coronary artery disease, status post cardiac cath. heart failure, COPD, on home oxygen DVT on Coumadin GERD hyperlipidemia hypertension prostate disorder recurrent pleural effusion prostate cancer status post surgery aortic valve replacement in 2016. Plan: Patient presents with clinical pictures of COPD exacerbation. Continue with same treatment. Continue with symptomatic treatment. Continue with oxygen, breathing treatment, and the steroids. Pulmonary consult is appreciated. Patient was started on antibiotics Zithromax and ceftriaxone . Continue with a blood pressure medication. Patient with high troponin, we'll call cardiology consult. Check echocardiogram. DVT and GI prophylaxis. Further recommendation based on the clinical course
--- NOTE | 2018-03-10 18:21 | US ---
EXAMINATION TYPE: US chest DATE OF EXAM: 03/10/2018 COMPARISON: US 2018 CLINICAL HISTORY: Right pleural effusion. Right pleural effusion EXAM MEASUREMENTS: Right Pleural Effusion fluid pocket: 4.9 cm Right skin to fluid thickness: 3.1 cm Right side MARKED for possible thoracentesis outside the dept. Pulmonologists are able to review the images in the patient?s EMR. IMPRESSIONS: Right pleural effusion is demonstrated that measures almost 5 cm in thickness.
[2018-03-10] MEDS ORDERED: PROMETHAZINE 25 MG TAB PO PRN (19:54)
[2018-03-10] MEDS ORDERED: ACETAMINOPHEN TAB 325 MG TAB PO PRN (19:55)
[2018-03-10] MEDS ORDERED: IPRATROPIUM-ALBUTEROL 3 ML NEB INHALATION PRN (19:55)
[2018-03-10] MEDS: ATORVASTATIN 10 MG TAB PO SCH (21:04)
[2018-03-10] MEDS: LORazepam 0.5 MG TAB PO PRN (21:04)
[2018-03-10] MEDS: POLYETHYLENE GLYCOL 3350 17 GM POWD.PACK PO SCH (21:04)
[2018-03-10] MEDS: MORPHINE SULFATE ER 30 MG TABLET PO SCH (21:04)
[2018-03-10] MEDS: FERROUS SULFATE 325 MG TAB PO SCH (21:04)
[2018-03-10] MEDS: FUROSEMIDE 40 MG TAB PO SCH (21:04)
[2018-03-10] MEDS: traZODone HCL 100 MG TAB PO SCH (21:15)
[2018-03-10] MEDS: methylPREDNISolone SOD SUCCI 40 MG/ML 1 ML VIAL IV SCH (22:52)
[2018-03-11 06:33] LABS: Glucose,Whole Blood 143 mg/dL (75-99)
[2018-03-11] MEDS: SUCRALFATE 1 GM TAB PO SCH ×2 (06:34→17:39)
[2018-03-11] MEDS: INSULIN ASPART 100 UNIT/ML 1 ML 10 ML VIAL SQ SCH ×4 (06:53→21:56)
--- NOTE | 2018-03-11 07:34 | XR ---
EXAMINATION TYPE: XR chest 2V DATE OF EXAM: 03/11/2018 COMPARISON: 03/10/2018 HISTORY: Shortness of breath. History of pneumonia. Right pleural effusion. TECHNIQUE: Frontal and lateral views of the chest are obtained. FINDINGS: There is redemonstration of a small layering right pleural effusion and right basilar airs pace disease. Nodular opacity seen within the right midlung that could represent residual pneumonia, underlying pulmonary nodule or pulmonary edema. This has been obscured on exams dating back to 11/26/19. Single lead left-sided cardiac device, cardiomegaly and postoperative changes of the chest are stable from the prior. Osseous structures are grossly intact. IMPRESSION: Similar-appearing right pleural effusion and right basilar opacity with more nodular component along the minor fissure that could represent residual pneumonia, underlying pulmonary nodule or confluent e delma. This should be reassessed on follow-up exams.
[2018-03-11] MEDS: POLYETHYLENE GLYCOL 3350 17 GM POWD.PACK PO SCH (08:44)
[2018-03-11] MEDS: MORPHINE SULFATE ER 30 MG TABLET PO SCH ×2 (08:45→20:58)
[2018-03-11] MEDS: AZITHROMYCIN 500 MG TAB PO SCH (08:46)
[2018-03-11] MEDS: LISINOPRIL 2.5 MG TAB PO SCH (08:46)
[2018-03-11] MEDS: CARVEDILOL 12.5 MG TAB PO SCH (08:46)
[2018-03-11] MEDS: methylPREDNISolone SOD SUCCI 40 MG/ML 1 ML VIAL IV SCH ×2 (08:46→15:45)
[2018-03-11] MEDS: FUROSEMIDE 40 MG TAB PO SCH (08:46)
[2018-03-11] MEDS: cefTRIAXone IN SWFI 1,000 MG/10 ML SYRINGE IVP SCH (08:46)
[2018-03-11] MEDS ORDERED: NON-FORMULARY DRUG (Ubidecarenone [Co Q-10] 200 MG) PO SCH (09:00)
--- NOTE | 2018-03-11 09:45 | P.CRDCN ---
History of Present Illness Consult date: 03/11/18 Chief complaint: Shortness of breath History of present illness: This is a pleasant 82-year-old gentleman who sees Dr. Goetz in the office on regular basis with a past medical history consistent off coronary artery disease and status post coronary artery bypass grafting, diastolic congestive heart failure based on an echocardiogram was performed in October 2017, valvular heart disease and status post aortic valve replacement using a bioprosthetic valve, chronic atrial fibrillation, and also status post permanent pacemaker implantation and beside that the patient does have chronic respiratory failure secondary to COPD and he is on oxygen at home, presented to the hospital complaining of shortness of breath. The shortness of breath started about a week ago and got worse. He describes exertional dyspnea and orthopnea. No PND. He did also have bilateral lower extremities edema worse on the right side than the left side. No fever or chills. No cough. He did not have any symptoms of chest pain or chest discomfort. The patient tried to increase his oxygen at home but that did not make him feel better in terms of the shortness of breath and for that reason he decided to come to the emergency room. The patient does have history of recurrent right pleural effusion and he underwent multiple right pleurocentesis in the past. The chest x-ray showed findings consistent off right pleural effusion. The BNP came in to be around 5000s. The EKG showed underlying atrial fibrillation with ventricular paced rhythm. The hemoglobin and electrolytes and BUN and creatinine are within normal limits. The last echocardiogram was in October 2017 and that showed normal left ventricular systolic function with normally functioning bioprosthetic aortic valve and mild MR, mild TR, and severe pulmonary hypertension. The pulmonary artery systolic pressure at that point was more than 60 mmHg. The patient stated that he was compliant with his medications and he was taking his Lasix as scheduled. He does not seems to be very compliant with his diet and was assaulted intake. Past Medical History Past Medical History: Atrial Fibrillation, Coronary Artery Disease (CAD), Cancer , Chest Pain / Angina, Heart Failure, COPD, Deep Vein Thrombosis (DVT), GERD/ Reflux, Hyperlipidemia, Hypertension, Myocardial Infarction (SD), Pneumonia, Prostate Disorder Additional Past Medical History / Comment(s): Home O2 at 2L/NC lately ATC, recurrent R pleural effusions, thoracic adenopathy, pneumonias, pneumonia with sepsis, bronchitis, bilateral lower leg edema/redness L lower leg, L leg DVT in 2007, chronic L leg pain/ neurological damage, BPH, prostrate cancer with surgery, constipation, recently had 4 teeth extracted Last Myocardial Infarction Date:: 2005 History of Any Multi-Drug Resistant Organisms: None Reported Past Surgical History: Appendectomy, Cardiac Valve Replacement, Cholecystectomy , Heart Catheterization, Heart Catheterization With Stent, Hernia Repair, Pacemaker, Prostate Surgery Additional Past Surgical History / Comment(s): 2016 aortic valve replacement, bilateral cataracts removal, prostatectomy, penile implant x2, R sided thoracentesises, bilateral inguinal hernia repair, L leg dvt surgically removed , colonoscopies. Past Anesthesia/Blood Transfusion Reactions: Previous Problems w/ Anesthesia Additional Past Anesthesia/Blood Transfusion Reaction / Comment(s): "one time BP dropped too low" Date of Last Stent Placement:: 2005 Type of Cardiac Device: Permanent Pacemaker Device Placement Date:: 2004? Smoking Status: Former smoker - Past Family History Brother(s) Family Medical History: Cancer Sister(s) Family Medical History: Cancer Father Family Medical History: Cancer Additional Family Medical History / Comment(s): Father had prostrate cancer. He had CAD/CABG. He at the age of 78yrs during coronary angioplasty. Mother Family Medical History: Myocardial Infarction (SD) Additional Family Medical History / Comment(s): Mother had a SD at the age of 35yrs. She had CABG. She lived to be 93 yrs old. Medications and Allergies Home Medications Medication Instructions Recorded Confirmed Type Carvedilol 25 mg PO DAILY 06/19/15 03/10/18 History Ferrous Sulfate [Iron (65 MG 325 mg PO DAILY 06/19/15 03/10/18 History Elemental)] oxyCODONE HCL 15 mg PO BID PRN 06/19/15 03/10/18 History LORazepam [Ativan] 0.5 mg PO BID PRN 07/28/16 03/10/18 History Sucralfate [Carafate] 1 gm PO BID-W/MEALS 07/28/16 03/10/18 History Ubidecarenone [Co Q-10] 200 mg PO DAILY 07/28/16 03/10/18 History Lovastatin [Mevacor] 20 mg PO HS 11/20/17 03/10/18 History Morphine Sulfate ER [Ms Contin] 30 mg PO Q12HR 11/20/17 03/10/18 History Warfarin [Coumadin] 2 mg PO HS 11/20/17 03/10/18 History Warfarin [Coumadin] 5 mg PO HS 11/20/17 03/10/18 History traZODone HCL 100 mg PO HS 11/20/17 03/10/18 History Furosemide [Lasix] 40 mg PO BID #60 tablet 11/21/17 03/10/18 Rx Polyethylene Glycol 3350 [Miralax] 17 gm PO DAILY powd.pack 02/07/18 03/10/18 Rx Lisinopril [Zestril] 2.5 mg PO DAILY 03/10/18 03/10/18 History Promethazine HCl 12.5 mg PO BID PRN 03/10/18 03/10/18 History Allergies Allergy/AdvReac Type Severity Reaction Status Date / Time No Known Allergies Allergy Verified 03/10/18 08:52 Physical Exam Vitals: Vital Signs Temp Pulse Pulse Resp BP BP Pulse Ox 03/11/18 08:00 97.5 F L 62 17 114/75 95 03/11/18 07:32 97 03/11/18 04:00 61 18 149/68 98 03/10/18 23:27 64 18 158/72 99 03/10/18 21:57 97.3 F L 62 18 143/63 99 03/10/18 19:05 97.3 F L 62 18 142/63 95 03/10/18 16:43 60 18 118/63 97 03/10/18 13:03 61 18 183/82 97 03/10/18 11:48 60 18 182/77 92 L 03/10/18 10:13 60 22 170/75 94 L Intake and Output 03/10/18 03/11/18 03/11/18 22:59 06:59 14:59 Intake Total 300 Output Total 600 Balance 300 -600 Intake: Oral 300 Output: Urine 600 Other: Voiding Method Toilet Toilet Urinal Urinal # Voids 1 Weight 77.8 kg - Constitutional General appearance: no acute distress - Respiratory Respiratory: right: diminished, left: rales - Cardiovascular Rhythm: regular Heart sounds: normal: S1, S2 Results 03/10/18 08:36 03/10/18 08:36 Current Medications Generic Name Dose Route Start Last Admin Trade Name Freq PRN Reason Stop Dose Admin Acetaminophen 650 mg 03/10/18 19:55 Tylenol Tab PO Q6HR PRN Fever and/ or Pain Albuterol/Ipratropium 3 ml 03/10/18 19:55 Duoneb 0.5 Mg-3 Mg/3 Ml Soln INHALATION RT-QID PRN Shortness Of Breath Or Wheezing Atorvastatin Calcium 10 mg 03/10/18 21:00 03/10/18 21:04 Lipitor PO 10 mg HS MOSES Administration Azithromycin 500 mg 03/11/18 09:00 03/11/18 08:46 Zithromax PO 500 mg DAILY MOSES Administration Carvedilol 25 mg 03/11/18 09:00 03/11/18 08:46 Coreg PO 25 mg DAILY MOSES Administration Ceftriaxone Sodium 1,000 mg 03/11/18 09:00 03/11/18 08:46 Rocephin IVP 03/14/18 09:01 1,000 mg Q24HR MOSES Administration Ferrous Sulfate 325 mg 03/10/18 20:00 03/10/18 21:04 Feosol PO 325 mg 1200 MOSES Administration Furosemide 40 mg 03/10/18 21:00 03/11/18 08:46 Lasix PO 40 mg BID@0900,1600 MOSES Administration Insulin Aspart 0 unit 03/11/18 07:30 03/11/18 06:53 Novolog SQ 2 unit ACHS MOSES Administration Protocol Lisinopril 2.5 mg 03/11/18 09:00 03/11/18 08:46 Zestril PO 2.5 mg DAILY MOSES Administration Lorazepam 0.5 mg 03/10/18 19:54 03/10/18 21:04 Ativan PO 0.5 mg BID PRN Administration Anxiety Methylprednisolone Sodium Succinate 40 mg 03/11/18 00:00 03/11/18 08:46 Solu-Medrol IV 40 mg Q8HR MOSES Administration Miscellaneous Information 1 each 03/10/18 10:15 Pneumonia Protocol Utilized PO ONCE PRN Per Protocol Morphine Sulfate 30 mg 03/10/18 21:00 03/11/18 08:45 Ms Contin PO 30 mg Q12HR MOSES Administration Oxycodone HCl 15 mg 03/10/18 19:54 Oxyir PO BID PRN Pain Polyethylene Glycol 17 gm 03/10/18 20:00 03/11/18 08:44 Miralax PO Not Given DAILY MOSES Promethazine HCl 12.5 mg 03/10/18 19:54 Phenergan PO BID PRN Nausea Sucralfate 1 gm 03/11/18 07:30 03/11/18 06:34 Carafate PO 1 gm BID-W/MEALS MOSES Administration Trazodone HCl 100 mg 03/10/18 21:00 03/10/18 21:15 Desyrel PO 100 mg HS MOSES Administration Intake and Output 03/10/18 03/11/18 03/11/18 22:59 06:59 14:59 Intake Total 300 Output Total 600 Balance 300 -600 Intake: Oral 300 Output: Urine 600 Other: Voiding Method Toilet Toilet Urinal Urinal # Voids 1 Weight 77.8 kg 03/10/18 08:36 03/10/18 08:36 Assessment and Plan Assessment: Assessment #1 congestive heart failure exacerbation secondary to diastolic dysfunction #2 recurrent right pleural effusion probably secondary to the above. #3 rule out pneumonia #4 coronary artery disease and status post CABG #5 chronic atrial fibrillation was controlled heart rate #6 status post permanent pacemaker implantation #7 chronic respiratory failure on home oxygen Multiple comorbid conditions Plan #1 I am going to DC the Lasix by mouth and start the patient on Lasix IV #2 monitor the kidney function and electrolytes #3 the ultrasound of the chest showed a 5 cm thickness pleural effusion on the right #4 the patient is in process to be seen by the pulmonary service for possible pleurocentesis #5 follow-up with the patient Thank you for allowing us participate in his care
--- NOTE | 2018-03-11 10:58 | P.PN ---
Objective - Vital Signs Vital signs: Vital Signs Temp 97.5 F L 03/11/18 08:00 Pulse 62 03/11/18 08:00 Resp 17 03/11/18 08:00 BP 114/75 03/11/18 08:00 Pulse Ox 95 03/11/18 08:00 Intake & Output 03/10/18 03/11/18 03/11/18 18:59 06:59 18:59 Intake Total 300 Output Total 600 Balance -300 Weight 74.843 kg 77.8 kg Intake: Oral 300 Output: Urine 600 Other: Voiding Method Toilet Toilet Urinal Urinal # Voids 1 - Exam GENERAL: The patient is alert and oriented x3, not in any acute distress. Well developed, well nourished. HEENT: Pupils are round and equally reacting to light. EOMI. No scleral icterus. No conjunctival pallor. Normocephalic, atraumatic. No pharyngeal erythema. No thyromegaly. CARDIOVASCULAR: S1 and S2 present. No murmurs, rubs, or gallops. PULMONARY: Chest is clear to auscultation, or crackles. B/L scattered wheezing ABDOMEN: Soft, nontender, nondistended, normoactive bowel sounds. No palpable organomegaly. MUSCULOSKELETAL: No joint swelling or deformity. EXTREMITIES: No cyanosis, clubbing, or pedal edema. NEUROLOGICAL: Gross neurological examination did not reveal any focal deficits. SKIN: No rashes - Labs CBC & Chem 7: 03/10/18 08:36 03/10/18 08:36 Labs: Abnormal Lab Results - Last 24 Hours (Table) 03/11/18 Range/Units 06:32 POC Glucose (mg/dL) 143 H (75-99) mg/dL Assessment and Plan Assessment: atrial fibrillation, status post pacemaker area coronary artery disease, status post cardiac cath. heart failure, COPD, on home oxygen DVT on Coumadin GERD hyperlipidemia hypertension prostate disorder recurrent pleural effusion prostate cancer status post surgery aortic valve replacement in 2016 Right-sided pleural effusion, 5 cm ultrasound on 03/11/2018 Plan: Patient presents with clinical pictures of COPD exacerbation. Continue with same treatment. Continue with symptomatic treatment. Continue with oxygen, breathing treatment, and the steroids. Pulmonary consult is appreciated. Patient was started on antibiotics Zithromax and ceftriaxone . Continue with a blood pressure medication. Patient with high troponin, cardiology consult is appreciated, workup as per cardiology. DVT and GI prophylaxis. Further recommendation based on the clinical course The prophylaxis, already on Coumadin GI prophylaxis Pepcid PT/OT: Pending Prognosis is guarded
--- NOTE | 2018-03-11 10:59 | P.PN ---
Subjective Progress Note Date: 03/11/18 Principal diagnosis: Acute on chronic hypoxic respiratory failure secondary to an acute exacerbation of diastolic congestive heart failure, right-sided pleural effusion. This is a very pleasant 82-year-old gentleman who follows with Dr. Lundberg as his primary care physician. He has a history of coronary artery disease, aortic valve stenosis with previous bypass surgery and valve replacement, chronic atrial fibrillation status post permanent pacemaker implantation on oral anticoagulants, DVT of the left lower extremity, congestive heart failure, pulmonary hypertension. The patient also has a history of recurrent pleural effusions with initial thoracentesis done here in June 2017, thoracentesis of the right lung again in August 2017 in [place]. The patient also has a history of sepsis with bacteremia requiring PICC line insertion for prolonged antibiotics. He has been admitted here a couple of times this year for shortness of breath, cough and congestion. The right pleural effusion is loculated and he has not had any subsequent thoracentesis done. He follows with Dr. Ballard in our office. FEV1 value 73% of predicted. He does have a pericarinal lymph node measuring 2.5 x 1.7 cm. There is an abnormal anterior superior mediastinal lymph node just anterior to left common carotid artery measuring 1.8 x 1.4 cm. He was treating the patient conservatively. Patient presented here to the emergency room again this morning with complaints of shortness of breath. He is seen there in consultation. He denies any cough or congestion. No fever chills or night sweats. No nausea vomiting or diarrhea. Mainly of progressive shortness of breath over the past several days. Chest x- ray continues to show persistent pleuroparenchymal opacity of the right lung base. There is mild stranding of the left medial lung base. No clear evidence of pneumonia. He is maintaining good O2 saturations in the upper 90s on 2 L/m per nasal cannula. He is afebrile. White count 8.9. Hemoglobin 12.1. INR 2.5. Creatinine 1.09. Troponin 0.043. ProBNP 5030. The patient is seen again today 03/11/2018 in follow-up on the selective care unit. He is currently sitting up in a chair at the bedside. He is awake and alert in no acute distress. Maintaining good O2 saturations in the mid 90s on 2 L/m per nasal cannula. He's been afebrile. Hemodynamically stable. Ultrasound of the right chest shows 5 cm fluid pocket. Chest x-ray reveals stable right pleural effusion with right basilar opacity and more nodular component along the minor fissure. He is maintained on antibiotics and IV diuretics. Objective - Vital Signs Vital signs: Vital Signs Temp 97.5 F L 03/11/18 08:00 Pulse 62 03/11/18 08:00 Resp 17 03/11/18 08:00 BP 114/75 03/11/18 08:00 Pulse Ox 95 03/11/18 08:00 Intake & Output 03/10/18 03/11/18 03/11/18 18:59 06:59 18:59 Intake Total 300 Output Total 600 Balance -300 Weight 74.843 kg 77.8 kg Intake: Oral 300 Output: Urine 600 Other: Voiding Method Toilet Toilet Urinal Urinal # Voids 1 - Exam Constitutional General appearance: average body habitus, no acute distress - EENT Eyes: EOMI, PERRLA ENT: hard of hearing Ears: bilateral: normal - Neck Neck: normal ROM Carotids: bilateral: upstroke normal Thyroid: bilateral: normal size - Respiratory Respiratory: right: rales - Cardiovascular Rhythm: regular Heart sounds: normal: S1, S2. Positive murmur - Gastrointestinal General gastrointestinal: normal bowel sounds - Integumentary Integumentary: normal turgor - Neurologic Neurologic: CNII-XII intact - Musculoskeletal Musculoskeletal: generalized weakness - Psychiatric Psychiatric: A&O x's 3, appropriate affect, intact judgment & insight - Labs CBC & Chem 7: 03/10/18 08:36 03/10/18 08:36 Labs: Abnormal Lab Results - Last 24 Hours (Table) 03/11/18 Range/Units 06:32 POC Glucose (mg/dL) 143 H (75-99) mg/dL Assessment and Plan Assessment: Impression: #1 Acute on chronic hypoxic respiratory failure secondary to an acute exacerbation of diastolic congestive heart failure, stable chronic right-sided pleural effusion. #2 Acute on chronic diastolic congestive heart failure. Preserved left ventricular systolic function with ejection fraction 50-55%. #3 History of stable, loculated right pleural effusion. #4 Pericarinal lymph node measuring 2.5 x 1.7 cm, abnormal anterior superior mediastinal lymph node measuring 1.8 x 1.4 cm. Being followed in the outpatient setting. #5 Chronic atrial fibrillation, anticoagulated with warfarin. #6 Cardiac arrhythmia requiring permanent pacemaker implantation. #7 Remote history of DVT in 2006. #8 Hypertension. #9 Hyperlipidemia. #10 Coronary artery disease status post coronary artery bypass grafting. #11 Aortic valve stenosis status post aortic valve replacement utilizing a bioprosthetic aortic valve. #12 History of prostate cancer. #13 Chronic pain syndrome. #14 Anxiety/depression. Plan: The patient was seen and evaluated by Dr. Ballard. Ultrasound of the right chest was reviewed. In the interim we'll continue with his current medications. We will continue to follow and make further recommendations based on his clinical status. I, the cosigning physician, performed a history & physical examination of the patient. Lungs sounds diminished in the right lung base. Maintaining good O2 saturations in the 90s on 2 L/m per nasal cannula. I discussed the assessment and plan of care with my nurse practitioner, Margarita Soto. I attest to the above note as dictated by her.
--- NOTE | 2018-03-11 11:09 | ECHOF ---
Referral Reason:Rule out heart disease MEASUREMENTS -------- HEIGHT: 175.3 cm WEIGHT: 77.6 kg BP: 149/68 RVIDd: 3.6 cm (< 3.3) IVSd: 1.4 cm (0.6 - 1.1) LVIDd: 4.5 cm (3.9 - 5.3) LVPWd: 1.5 cm (0.6 - 1.1) IVSs: 1.8 cm LVIDs: 3.6 cm LVPWs: 1.3 cm LA Diam: 5.4 cm (2.7 - 3.8) LAESV Index (A-L): 51.89 ml/m MV EXCURSION: 21.866 mm (> 18.000) MV EF SLOPE: 43 mm/s (70 - 150) EPSS: 0.5 cm MV E Luciano: 0.99 m/s MV DecT: 145 ms MV A Luciano: 0.27 m/s MV E/A Ratio: 3.61 AV maxP.83 mmHg AV meanP.19 mmHg AR PHT: 534 ms RAP: 5.00 mmHg RVSP: 57.34 mmHg FINDINGS -------- Paced rhythm. This was a technically adequate study. The left ventricular size is normal. There is mild concentric left ventricular hypertrophy. Overa ll left ventricular systolic function is low-normal with, an EF between 50 - 55 %. The right ventricle is normal in size. The left atrium is mildly dilated. LA is severely dilated >40 ml/m2 The right atrial size is normal. Peak/mean gradient across the Aortic Valve is 24.83mmHg / 12.19mmHg. There is mild regurgitation of the bioprosthetic aortic valve. Mild mitral annular calcification present. [id number] mitral regurgitation is present. Mild tricuspid regurgitation present. There is moderate pulmonary hypertension. The right ventric ular systolic pressure, as measured by Doppler, is 57.34mmHg. Trace/mild (physiologic) pulmonic regurgitation. The aortic root size is normal. There is no pericardial effusion. CONCLUSIONS -------- 1. The left ventricular size is normal. 2. There is mild concentric left ventricular hypertrophy. 3. Overall left ventricular systolic function is low-normal with, an EF between 50 - 55 %. 4. The right ventricle is normal in size. 5. The left atrium is mildly dilated. 6. LA is severely dilated >40 ml/m2 7. The right atrial size is normal. 8. Peak/mean gradient across the Aortic Valve is 24.83mmHg / 12.19mmHg. 9. There is mild regurgitation of the bioprosthetic aortic valve. 10. Mild mitral annular calcification present. 11. [id number] mitral regurgitation is present. 12. Mild tricuspid regurgitation present. 13. There is moderate pulmonary hypertension. 14. The right ventricular systolic pressure, as measured by Doppler, is 57.34mmHg. 15. Trace/mild (physiologic) pulmonic regurgitation. 16. The aortic root size is normal. 17. There is no pericardial effusion. RADIAL SAW OPERATOR: Patty Harman RDCS
[2018-03-11 11:18] VITALS: BMI 25.3
[2018-03-11 11:30] LABS: INR 2.4 (<1.2); Prothrombin Time 21.3 sec (9.0-12.0)
[2018-03-11 11:35] LABS: Calcium 8.8 mg/dL (8.4-10.2); Potassium 4.8 mmol/L (3.5-5.1)
[2018-03-11] MEDS: FERROUS SULFATE 325 MG TAB PO SCH (12:15)
[2018-03-11 12:20] LABS: Glucose,Whole Blood 165 mg/dL (75-99)
[2018-03-11 17:35] LABS: Glucose,Whole Blood 139 mg/dL (75-99)
[2018-03-11] MEDS: LORazepam 0.5 MG TAB PO PRN (20:58)
[2018-03-11] MEDS: ATORVASTATIN 10 MG TAB PO SCH (20:58)
[2018-03-11] MEDS: FUROSEMIDE 10 MG/ML 4 ML VIAL IV SCH (20:59)
[2018-03-11] MEDS: FAMOTIDINE 20 MG TAB PO SCH (20:59)
[2018-03-11] MEDS: traZODone HCL 100 MG TAB PO SCH (20:59)
[2018-03-11] MEDS ORDERED: FAMOTIDINE 20 MG/2 ML VIAL IV SCH (21:00)
[2018-03-11 21:21] LABS: Glucose,Whole Blood 183 mg/dL (75-99)
[2018-03-12] MEDS ORDERED: methylPREDNISolone SOD SUCCI 125 MG/2 ML VIAL ONE (00:15)
[2018-03-12] MEDS: methylPREDNISolone SOD SUCCI 40 MG/ML 1 ML VIAL IV SCH ×4 (05:50→23:09)
[2018-03-12 06:12] LABS: Glucose,Whole Blood 163 mg/dL (75-99)
[2018-03-12 06:13] LABS: Basophils % (A) 0 %; Eosinophils % (A) 0 %; HCT 32.8 % (39.0-53.0); HGB 10.6 gm/dL (13.0-17.5); Lymphocytes # (A) 0.6 k/uL (1.0-4.8); Lymphocytes % (A) 4 %; MCH 32.7 pg (25.0-35.0); MCHC 32.3 g/dL (31.0-37.0); MCV 101.4 fL (80.0-100.0); Macrocytosis Slight; Mean Platelet Volume 6.6; Monocytes # (A) 0.5 k/uL (0-1.0); Monocytes % (A) 4 %; Neutrophils # (A) 13.4 k/uL (1.3-7.7); Neutrophils % (A) 91 %; Platelet Count 238 k/uL (150-450); RBC 3.23 m/uL (4.30-5.90); WBC 14.7 k/uL (3.8-10.6)
[2018-03-12 06:26] LABS: Prothrombin Time 18.4 sec (9.0-12.0)
[2018-03-12 06:31] LABS: Calcium 8.8 mg/dL (8.4-10.2); Potassium 4.7 mmol/L (3.5-5.1)
[2018-03-12] MEDS: SUCRALFATE 1 GM TAB PO SCH ×2 (06:32→17:10)
[2018-03-12] MEDS: INSULIN ASPART 100 UNIT/ML 1 ML 10 ML VIAL SQ SCH ×4 (06:32→22:19)
[2018-03-12] MEDS: FAMOTIDINE 20 MG TAB PO SCH (08:35)
[2018-03-12] MEDS: FERROUS SULFATE 325 MG TAB PO SCH (08:35)
[2018-03-12] MEDS: LISINOPRIL 2.5 MG TAB PO SCH (08:35)
[2018-03-12] MEDS: MORPHINE SULFATE ER 30 MG TABLET PO SCH ×2 (08:35→20:55)
[2018-03-12] MEDS: FUROSEMIDE 10 MG/ML 4 ML VIAL IV SCH ×2 (08:36→17:15)
[2018-03-12] MEDS: AZITHROMYCIN 500 MG TAB PO SCH (08:36)
[2018-03-12] MEDS: cefTRIAXone IN SWFI 1,000 MG/10 ML SYRINGE IVP SCH (08:36)
[2018-03-12] MEDS: CARVEDILOL 12.5 MG TAB PO SCH (08:37)
[2018-03-12] MEDS: POLYETHYLENE GLYCOL 3350 17 GM POWD.PACK PO SCH (08:42)
[2018-03-12] MEDS ORDERED: PHYTONADIONE ORAL 5 MG/5 ML ORAL.SYRG PO STA (09:00)
--- NOTE | 2018-03-12 11:47 | P.PN ---
Subjective 82 years old male with past medical history of atrial fibrillation, status post pacemaker area coronary artery disease, status post cardiac cath. heart failure , COPD, DVT on Coumadin, GERD, hyperlipidemia, hypertension, pneumonia, prostate disorder on home oxygen, recurrent pleural effusion,, prostate cancer status post surgery, aortic valve replacement in 2016. He presents because of progressive dyspnea over several days, pt is not very good historian , he states he has dyspnea on exertion all the time but yesterday it got worse overnight , he tried to increase his home oxygen from 2 to 3 L/M however did not help so decided to come to ED, pt denies to me chest pain , no cough or phlegm. no change in urine or bowel habits , no fever. 03/12/2018 Patient still have some dyspnea. His creatinine is trending up from 1.0-1.3. Elevated d-dimer but has His INR 2.0 today. And doubly BC increased from 8.9 to 14.7, but he is on IV Solu-Medrol. Oxygen Saturating high 90s on 2 L NC. Patient got 1 dose of vitamin K 10 mg by mouth. A still on antibiotics for possible pneumonia Review of systems CONSTITUTIONAL: No fever, no malaise, no fatigue. HEENT: No recent visual problems or hearing problems. Denied any sore throat. CARDIOVASCULAR: No orthopnea, PND, no palpitations, no syncope. PULMONARY: no cough, no hemoptysis. GASTROINTESTINAL: No diarrhea, no nausea, no vomiting, no abdominal pain. Normoactive bowel sounds. NEUROLOGICAL: No headaches, no weakness, no numbness. HEMATOLOGICAL: Denies any bleeding or petechiae. GENITOURINARY: Denies any burning micturition, frequency, or urgency. MUSCULOSKELETAL/RHEUMATOLOGICAL: Denies any joint pain, swelling, or any muscle pain. ENDOCRINE: Denies any polyuria or polydipsia. Objective - Vital Signs Vital signs: Vital Signs Temp 96.6 F L 03/12/18 08:00 Pulse 60 03/11/18 15:42 Resp 16 03/12/18 08:00 BP 123/68 03/12/18 08:00 Pulse Ox 97 03/12/18 08:00 Intake & Output 03/11/18 03/12/18 03/12/18 18:59 06:59 18:59 Intake Total 720 360 120 Output Total 850 Balance 720 -490 120 Weight 77.8 kg 78 kg Intake: Oral 720 360 120 Output: Urine 850 Other: Voiding Method Toilet Toilet Toilet Urinal Urinal Urinal # Voids 2 1 - Exam GENERAL: The patient is alert and oriented x3, not in any acute distress. Well developed, well nourished. HEENT: Pupils are round and equally reacting to light. EOMI. No scleral icterus. No conjunctival pallor. Normocephalic, atraumatic. No pharyngeal erythema. No thyromegaly. CARDIOVASCULAR: S1 and S2 present. No murmurs, rubs, or gallops. -PULMONARY: Chest is clear to auscultation, or crackles. B/L scattered wheezing ABDOMEN: Soft, nontender, nondistended, normoactive bowel sounds. No palpable organomegaly. MUSCULOSKELETAL: No joint swelling or deformity. EXTREMITIES: No cyanosis, clubbing, or pedal edema. NEUROLOGICAL: Gross neurological examination did not reveal any focal deficits. SKIN: No rashes - Labs CBC & Chem 7: 03/12/18 05:51 03/12/18 05:51 Labs: Abnormal Lab Results - Last 24 Hours (Table) 03/11/18 03/11/18 03/11/18 Range/Units 11:13 12:00 17:06 WBC (3.8-10.6) k/uL RBC (4.30-5.90) m/uL Hgb (13.0-17.5) gm/dL Hct (39.0-53.0) % MCV (80.0-100.0) fL Neutrophils # (1.3-7.7) k/uL Lymphocytes # (1.0-4.8) k/uL PT (9.0-12.0) sec INR (<1.2) Sodium (137-145) mmol/L Carbon Dioxide 31 H (22-30) mmol/L BUN 35 H (9-20) mg/dL Creatinine (0.66-1.25) mg/dL Glucose 181 H (74-99) mg/dL POC Glucose (mg/dL) 165 H 139 H (75-99) mg/dL 03/11/18 03/12/18 03/12/18 Range/Units 21:17 05:51 05:51 WBC 14.7 H (3.8-10.6) k/uL RBC 3.23 L (4.30-5.90) m/uL Hgb 10.6 L (13.0-17.5) gm/dL Hct 32.8 L (39.0-53.0) % MCV 101.4 H (80.0-100.0) fL Neutrophils # 13.4 H (1.3-7.7) k/uL Lymphocytes # 0.6 L (1.0-4.8) k/uL PT 18.4 H (9.0-12.0) sec INR 2.0 H (<1.2) Sodium (137-145) mmol/L Carbon Dioxide (22-30) mmol/L BUN (9-20) mg/dL Creatinine (0.66-1.25) mg/dL Glucose (74-99) mg/dL POC Glucose (mg/dL) 183 H (75-99) mg/dL 03/12/18 03/12/18 Range/Units 05:51 06:10 WBC (3.8-10.6) k/uL RBC (4.30-5.90) m/uL Hgb (13.0-17.5) gm/dL Hct (39.0-53.0) % MCV (80.0-100.0) fL Neutrophils # (1.3-7.7) k/uL Lymphocytes # (1.0-4.8) k/uL PT (9.0-12.0) sec INR (<1.2) Sodium 135 L (137-145) mmol/L Carbon Dioxide (22-30) mmol/L BUN 50 H (9-20) mg/dL Creatinine 1.30 H (0.66-1.25) mg/dL Glucose 148 H (74-99) mg/dL POC Glucose (mg/dL) 163 H (75-99) mg/dL Microbiology - Last 24 Hours (Table) 03/10/18 21:18 Gram Stain - Preliminary Sputum Sputum Culture - Preliminary 03/10/18 10:49 Blood Culture - Preliminary Blood No Growth after 24 hours Assessment and Plan Assessment: COPD, on home oxygen Possible pneumonia Right side pleural effusion, recurrent. status post thoracocentesis atrial fibrillation, status post pacemaker area coronary artery disease, status post cardiac cath. heart failure, DVT on Coumadin GERD hyperlipidemia hypertension prostate cancer status post surgery aortic valve replacement in 2016 Plan: Patient presents with clinical pictures of COPD exacerbation. Continue with same treatment. Continue with symptomatic treatment. Continue with oxygen, breathing treatment, and the steroids. Pulmonary consult is appreciated. Patient was started on antibiotics Zithromax and ceftriaxone . Continue with a blood pressure medication. S/P thoracocentesis on 03/12/2018. Patient with high troponin, cardiology consult is appreciated, workup as per cardiology. DVT and GI prophylaxis. Further recommendation based on the clinical course The prophylaxis, already on Coumadin GI prophylaxis Pepcid PT/OT: Home Prognosis is guarded
[2018-03-12 11:54] LABS: Glucose,Whole Blood 133 mg/dL (75-99)
[2018-03-12 12:37] LABS: INR 1.9 (<1.2); Prothrombin Time 17.3 sec (9.0-12.0)
--- NOTE | 2018-03-12 13:12 | P.PN ---
Subjective Progress Note Date: 03/12/18 Principal diagnosis: Acute on chronic hypoxic respiratory failure secondary to an acute exacerbation of diastolic congestive heart failure, right-sided pleural effusion. This is a very pleasant 82-year-old gentleman who follows with Dr. Lundberg as his primary care physician. He has a history of coronary artery disease, aortic valve stenosis with previous bypass surgery and valve replacement, chronic atrial fibrillation status post permanent pacemaker implantation on oral anticoagulants, DVT of the left lower extremity, congestive heart failure, pulmonary hypertension. The patient also has a history of recurrent pleural effusions with initial thoracentesis done here in June 2017, thoracentesis of the right lung again in August 2017 in [place]. The patient also has a history of sepsis with bacteremia requiring PICC line insertion for prolonged antibiotics. He has been admitted here a couple of times this year for shortness of breath, cough and congestion. The right pleural effusion is loculated and he has not had any subsequent thoracentesis done. He follows with Dr. Ballard in our office. FEV1 value 73% of predicted. He does have a pericarinal lymph node measuring 2.5 x 1.7 cm. There is an abnormal anterior superior mediastinal lymph node just anterior to left common carotid artery measuring 1.8 x 1.4 cm. He was treating the patient conservatively. Patient presented here to the emergency room again this morning with complaints of shortness of breath. He is seen there in consultation. He denies any cough or congestion. No fever chills or night sweats. No nausea vomiting or diarrhea. Mainly of progressive shortness of breath over the past several days. Chest x- ray continues to show persistent pleuroparenchymal opacity of the right lung base. There is mild stranding of the left medial lung base. No clear evidence of pneumonia. He is maintaining good O2 saturations in the upper 90s on 2 L/m per nasal cannula. He is afebrile. White count 8.9. Hemoglobin 12.1. INR 2.5. Creatinine 1.09. Troponin 0.043. ProBNP 5030. The patient is seen again today 03/11/2018 in follow-up on the selective care unit. He is currently sitting up in a chair at the bedside. He is awake and alert in no acute distress. Maintaining good O2 saturations in the mid 90s on 2 L/m per nasal cannula. He's been afebrile. Hemodynamically stable. Ultrasound of the right chest shows 5 cm fluid pocket. Chest x-ray reveals stable right pleural effusion with right basilar opacity and more nodular component along the minor fissure. He is maintained on antibiotics and IV diuretics. The patient seen again today 03/12/2018 in follow-up on the selective care unit. He is awake and alert in no acute distress. He is sitting up in a chair at the bedside. He denies any worsening shortness of breath, cough or congestion. Still not quite back to his baseline. He is maintaining good O2 saturations in the high 90s on 2 L/m per nasal cannula. He's been afebrile. Hemodynamically stable. The plan is for thoracentesis of the right pleural effusion however his INR is still 2.0. We'll give an additional milligrams of vitamin K today. Repeat an INR in the a.m. Once his INR is closer to 1.5 we'll proceed. Objective - Vital Signs Vital signs: Vital Signs Temp 96.6 F L 03/12/18 08:00 Pulse 60 03/11/18 15:42 Resp 16 03/12/18 11:33 BP 123/68 03/12/18 08:00 Pulse Ox 97 03/12/18 08:00 Intake & Output 03/11/18 03/12/18 03/12/18 18:59 06:59 18:59 Intake Total 720 360 120 Output Total 850 Balance 720 -490 120 Weight 77.8 kg 78 kg Intake: Oral 720 360 120 Output: Urine 850 Other: Voiding Method Toilet Toilet Toilet Urinal Urinal Urinal # Voids 2 1 - Exam Constitutional General appearance: average body habitus, no acute distress - EENT Eyes: EOMI, PERRLA ENT: hard of hearing Ears: bilateral: normal - Neck Neck: normal ROM Carotids: bilateral: upstroke normal Thyroid: bilateral: normal size - Respiratory Respiratory: right: rales - Cardiovascular Rhythm: regular Heart sounds: normal: S1, S2. Positive murmur - Gastrointestinal General gastrointestinal: normal bowel sounds - Integumentary Integumentary: normal turgor - Neurologic Neurologic: CNII-XII intact - Musculoskeletal Musculoskeletal: generalized weakness - Psychiatric Psychiatric: A&O x's 3, appropriate affect, intact judgment & insight - Labs CBC & Chem 7: 03/12/18 05:51 03/12/18 05:51 Labs: Abnormal Lab Results - Last 24 Hours (Table) 03/11/18 03/11/18 03/12/18 Range/Units 17:06 21:17 05:51 WBC 14.7 H (3.8-10.6) k/uL RBC 3.23 L (4.30-5.90) m/uL Hgb 10.6 L (13.0-17.5) gm/dL Hct 32.8 L (39.0-53.0) % MCV 101.4 H (80.0-100.0) fL Neutrophils # 13.4 H (1.3-7.7) k/uL Lymphocytes # 0.6 L (1.0-4.8) k/uL PT (9.0-12.0) sec INR (<1.2) Sodium (137-145) mmol/L BUN (9-20) mg/dL Creatinine (0.66-1.25) mg/dL Glucose (74-99) mg/dL POC Glucose (mg/dL) 139 H 183 H (75-99) mg/dL 03/12/18 03/12/18 03/12/18 Range/Units 05:51 05:51 06:10 WBC (3.8-10.6) k/uL RBC (4.30-5.90) m/uL Hgb (13.0-17.5) gm/dL Hct (39.0-53.0) % MCV (80.0-100.0) fL Neutrophils # (1.3-7.7) k/uL Lymphocytes # (1.0-4.8) k/uL PT 18.4 H (9.0-12.0) sec INR 2.0 H (<1.2) Sodium 135 L (137-145) mmol/L BUN 50 H (9-20) mg/dL Creatinine 1.30 H (0.66-1.25) mg/dL Glucose 148 H (74-99) mg/dL POC Glucose (mg/dL) 163 H (75-99) mg/dL 03/12/18 03/12/18 Range/Units 11:52 12:06 WBC (3.8-10.6) k/uL RBC (4.30-5.90) m/uL Hgb (13.0-17.5) gm/dL Hct (39.0-53.0) % MCV (80.0-100.0) fL Neutrophils # (1.3-7.7) k/uL Lymphocytes # (1.0-4.8) k/uL PT 17.3 H (9.0-12.0) sec INR 1.9 H (<1.2) Sodium (137-145) mmol/L BUN (9-20) mg/dL Creatinine (0.66-1.25) mg/dL Glucose (74-99) mg/dL POC Glucose (mg/dL) 133 H (75-99) mg/dL Microbiology - Last 24 Hours (Table) 03/10/18 21:18 Gram Stain - Preliminary Sputum Sputum Culture - Preliminary 03/10/18 10:49 Blood Culture - Preliminary Blood No Growth after 24 hours Assessment and Plan Assessment: Impression: #1 Acute on chronic hypoxic respiratory failure secondary to an acute exacerbation of diastolic congestive heart failure, stable chronic right-sided pleural effusion. #2 Acute on chronic diastolic congestive heart failure. Preserved left ventricular systolic function with ejection fraction 50-55%. #3 History of stable, loculated right pleural effusion. #4 Pericarinal lymph node measuring 2.5 x 1.7 cm, abnormal anterior superior mediastinal lymph node measuring 1.8 x 1.4 cm. Being followed in the outpatient setting. #5 Chronic atrial fibrillation, anticoagulated with warfarin. #6 Cardiac arrhythmia requiring permanent pacemaker implantation. #7 Remote history of DVT in 2006. #8 Hypertension. #9 Hyperlipidemia. #10 Coronary artery disease status post coronary artery bypass grafting. #11 Aortic valve stenosis status post aortic valve replacement utilizing a bioprosthetic aortic valve. #12 History of prostate cancer. #13 Chronic pain syndrome. #14 Anxiety/depression. Plan: The patient was seen and evaluated by Dr. Ballard. INR 1.9 after vitamin K today. We'll repeat in the a.m. Once close to 1.5 plan for thoracentesis of the right chest. In the interim we'll continue with his current medications. We will continue to follow and make further recommendations based on his clinical status. I, the cosigning physician, performed a history & physical examination of the patient. Lungs sounds diminished in the right lung base. Maintaining good O2 saturations in the 90s on 2 L/m per nasal cannula. I discussed the assessment and plan of care with my nurse practitioner, Margarita Soto. I attest to the above note as dictated by her.
--- NOTE | 2018-03-12 13:15 | P.PN ---
Subjective Progress Note Date: 03/12/18 This is a pleasant 82-year-old gentleman who sees Dr. Goetz in the office on regular basis with a past medical history consistent off coronary artery disease and status post coronary artery bypass grafting, diastolic congestive heart failure based on an echocardiogram was performed in October 2017, valvular heart disease and status post aortic valve replacement using a bioprosthetic valve, chronic atrial fibrillation, and also status post permanent pacemaker implantation and beside that the patient does have chronic respiratory failure secondary to COPD and he is on oxygen at home, presented to the hospital complaining of shortness of breath.The chest x-ray showed findings consistent off right pleural effusion. The BNP came in to be around 5000.The last echocardiogram was in October 2017 and that showed normal left ventricular systolic function with normally functioning bioprosthetic aortic valve and mild MR, mild TR, and severe pulmonary hypertension. The pulmonary artery systolic pressure at that point was more than 60 mmHg. patient was seen and examined this morning, he has been marked for possible right-sided thoracentesis. His INR this morning is 1.9. Once the INR becomes within acceptable range, thoracentesis will be performed on the right side. Objective - Vital Signs Vital signs: Vital Signs Temp 96.6 F L 03/12/18 08:00 Pulse 60 03/11/18 15:42 Resp 16 03/12/18 11:33 BP 123/68 03/12/18 08:00 Pulse Ox 97 03/12/18 08:00 Intake & Output 03/11/18 03/12/18 03/12/18 18:59 06:59 18:59 Intake Total 720 360 120 Output Total 850 Balance 720 -490 120 Weight 77.8 kg 78 kg Intake: Oral 720 360 120 Output: Urine 850 Other: Voiding Method Toilet Toilet Toilet Urinal Urinal Urinal # Voids 2 1 - Exam PHYSICAL EXAMINATION: GENERAL: 82-year-old gentleman in no apparent distress at the time of my examination HEENT: Head is atraumatic, normocephalic. Pupils equal, round. Sclera anicteric. Conjunctiva are clear. Mucous membranes of the mouth are moist. Neck is supple. There is no elevated jugular venous pressure.] bruit is heard. HEART EXAMINATION: Heart S1, S2 systolic murmur is heard . No murmur or gallop heard. CHEST EXAMINATION: Lungs reveal diminished air entry to the right posteriorly ABDOMEN: Soft, nontender. Bowel sounds are heard. No organomegaly noted. EXTREMITIES: 2+ peripheral pulses with no evidence of peripheral edema and no calf tenderness noted. NEUROLOGIC patient is awake, alert and oriented ?-3. . - Labs CBC & Chem 7: 03/12/18 05:51 03/12/18 05:51 Labs: Abnormal Lab Results - Last 24 Hours (Table) 03/11/18 03/11/18 03/12/18 Range/Units 17:06 21:17 05:51 WBC 14.7 H (3.8-10.6) k/uL RBC 3.23 L (4.30-5.90) m/uL Hgb 10.6 L (13.0-17.5) gm/dL Hct 32.8 L (39.0-53.0) % MCV 101.4 H (80.0-100.0) fL Neutrophils # 13.4 H (1.3-7.7) k/uL Lymphocytes # 0.6 L (1.0-4.8) k/uL PT (9.0-12.0) sec INR (<1.2) Sodium (137-145) mmol/L BUN (9-20) mg/dL Creatinine (0.66-1.25) mg/dL Glucose (74-99) mg/dL POC Glucose (mg/dL) 139 H 183 H (75-99) mg/dL 03/12/18 03/12/18 03/12/18 Range/Units 05:51 05:51 06:10 WBC (3.8-10.6) k/uL RBC (4.30-5.90) m/uL Hgb (13.0-17.5) gm/dL Hct (39.0-53.0) % MCV (80.0-100.0) fL Neutrophils # (1.3-7.7) k/uL Lymphocytes # (1.0-4.8) k/uL PT 18.4 H (9.0-12.0) sec INR 2.0 H (<1.2) Sodium 135 L (137-145) mmol/L BUN 50 H (9-20) mg/dL Creatinine 1.30 H (0.66-1.25) mg/dL Glucose 148 H (74-99) mg/dL POC Glucose (mg/dL) 163 H (75-99) mg/dL 03/12/18 03/12/18 Range/Units 11:52 12:06 WBC (3.8-10.6) k/uL RBC (4.30-5.90) m/uL Hgb (13.0-17.5) gm/dL Hct (39.0-53.0) % MCV (80.0-100.0) fL Neutrophils # (1.3-7.7) k/uL Lymphocytes # (1.0-4.8) k/uL PT 17.3 H (9.0-12.0) sec INR 1.9 H (<1.2) Sodium (137-145) mmol/L BUN (9-20) mg/dL Creatinine (0.66-1.25) mg/dL Glucose (74-99) mg/dL POC Glucose (mg/dL) 133 H (75-99) mg/dL Microbiology - Last 24 Hours (Table) 03/10/18 10:49 Blood Culture - Preliminary Blood No Growth after 48 hours 03/10/18 21:18 Gram Stain - Preliminary Sputum Sputum Culture - Preliminary Assessment and Plan Plan: Assessment #1 congestive heart failure exacerbation secondary to diastolic dysfunction #2 recurrent right pleural effusion probably secondary to the above. #3 rule out pneumonia #4 coronary artery disease and status post CABG #5 chronic atrial fibrillation was controlled heart rate #6 status post permanent pacemaker implantation #7 chronic respiratory failure on home oxygen #8 Multiple comorbid conditions Plan We will continue current dose of Lasix. Ultrasound of the chest has been performed and patient will be scheduled to undergo right-sided thoracentesis when the INR is in acceptable range. We will continue to follow. DNP note has been reviewed, I agree with a documented findings and plan of care. Patient was seen and examined.
[2018-03-12 16:41] LABS: Glucose,Whole Blood 155 mg/dL (75-99)
[2018-03-12] MEDS: ATORVASTATIN 10 MG TAB PO SCH (20:54)
[2018-03-12] MEDS: traZODone HCL 100 MG TAB PO SCH (20:54)
[2018-03-12] MEDS: LORazepam 0.5 MG TAB PO PRN (21:03)
[2018-03-12 21:09] LABS: Glucose,Whole Blood 169 mg/dL (75-99)
[2018-03-13 06:26] LABS: Basophils % (A) 0 %; Eosinophils % (A) 0 %; HCT 33.7 % (39.0-53.0); Lymphocytes # (A) 0.5 k/uL (1.0-4.8); Lymphocytes % (A) 4 %; MCH 33.1 pg (25.0-35.0); MCHC 32.5 g/dL (31.0-37.0); MCV 101.7 fL (80.0-100.0); Macrocytosis Slight; Mean Platelet Volume 6.7; Monocytes # (A) 0.6 k/uL (0-1.0); Monocytes % (A) 4 %; Neutrophils % (A) 92 %; Platelet Count 244 k/uL (150-450); RBC 3.32 m/uL (4.30-5.90); RDW 14.2 % (11.5-15.5); WBC 15.2 k/uL (3.8-10.6)
[2018-03-13 06:31] LABS: Glucose,Whole Blood 170 mg/dL (75-99)
[2018-03-13 06:35] LABS: INR 1.4 (<1.2)
[2018-03-13 06:36] LABS: Calcium 8.8 mg/dL (8.4-10.2)
[2018-03-13] MEDS: INSULIN ASPART 100 UNIT/ML 1 ML 10 ML VIAL SQ SCH ×4 (06:51→21:27)
[2018-03-13] MEDS: SUCRALFATE 1 GM TAB PO SCH ×2 (06:51→17:28)
[2018-03-13] MEDS: AZITHROMYCIN 500 MG TAB PO SCH (08:31)
[2018-03-13] MEDS: CARVEDILOL 12.5 MG TAB PO SCH (08:32)
[2018-03-13] MEDS: LISINOPRIL 2.5 MG TAB PO SCH (08:32)
[2018-03-13] MEDS: MORPHINE SULFATE ER 30 MG TABLET PO SCH ×2 (08:32→21:26)
[2018-03-13] MEDS: FAMOTIDINE 20 MG TAB PO SCH (08:32)
[2018-03-13] MEDS: methylPREDNISolone SOD SUCCI 40 MG/ML 1 ML VIAL IV SCH ×2 (08:33→15:57)
[2018-03-13] MEDS: cefTRIAXone IN SWFI 1,000 MG/10 ML SYRINGE IVP SCH (08:33)
[2018-03-13] MEDS: POLYETHYLENE GLYCOL 3350 17 GM POWD.PACK PO SCH (08:34)
[2018-03-13] MEDS: FUROSEMIDE 10 MG/ML 4 ML VIAL IV SCH ×2 (08:34→19:48)
--- NOTE | 2018-03-13 11:20 | XR ---
EXAMINATION TYPE: XR chest 1V portable DATE OF EXAM: 03/13/2018 HISTORY: rt thoracentesis. REFERENCE: Previous study dated 03/11/2018. FINDINGS: There has been a midline sternotomy. There is a unipolar pacing device in place on the left . The heart is enlarged. There is a right-sided effusion not significantly changed from previous. There is underlying atelectasis. I do not see evidence of pneumothorax. IMPRESSION: 1. CARDIOMEGALY. 2. PERSISTENT RIGHT-SIDED EFFUSION.
[2018-03-13 11:41] LABS: Glucose,Whole Blood 175 mg/dL (75-99)
[2018-03-13] MEDS: FERROUS SULFATE 325 MG TAB PO SCH (12:15)
[2018-03-13 12:31] LABS: Total Protein 6.8 g/dL (6.3-8.2)
--- NOTE | 2018-03-13 12:34 | P.PN ---
Subjective Progress Note Date: 03/13/18 Principal diagnosis: Acute on chronic hypoxic respiratory failure, diastolic congestive heart failure and right-sided pleural effusion This is a very pleasant 82-year-old gentleman who follows with Dr. Lundberg as his primary care physician. He has a history of coronary artery disease, aortic valve stenosis with previous bypass surgery and valve replacement, chronic atrial fibrillation status post permanent pacemaker implantation on oral anticoagulants, DVT of the left lower extremity, congestive heart failure, pulmonary hypertension. The patient also has a history of recurrent pleural effusions with initial thoracentesis done here in June 2017, thoracentesis of the right lung again in August 2017 in [place]. The patient also has a history of sepsis with bacteremia requiring PICC line insertion for prolonged antibiotics. He has been admitted here a couple of times this year for shortness of breath, cough and congestion. The right pleural effusion is loculated and he has not had any subsequent thoracentesis done. He follows with Dr. Ballard in our office. FEV1 value 73% of predicted. He does have a pericarinal lymph node measuring 2.5 x 1.7 cm. There is an abnormal anterior superior mediastinal lymph node just anterior to left common carotid artery measuring 1.8 x 1.4 cm. He was treating the patient conservatively. Patient presented here to the emergency room again this morning with complaints of shortness of breath. He is seen there in consultation. He denies any cough or congestion. No fever chills or night sweats. No nausea vomiting or diarrhea. Mainly of progressive shortness of breath over the past several days. Chest x- ray continues to show persistent pleuroparenchymal opacity of the right lung base. There is mild stranding of the left medial lung base. No clear evidence of pneumonia. He is maintaining good O2 saturations in the upper 90s on 2 L/m per nasal cannula. He is afebrile. White count 8.9. Hemoglobin 12.1. INR 2.5. Creatinine 1.09. Troponin 0.043. ProBNP 5030. The patient is seen again today 03/11/2018 in follow-up on the selective care unit. He is currently sitting up in a chair at the bedside. He is awake and alert in no acute distress. Maintaining good O2 saturations in the mid 90s on 2 L/m per nasal cannula. He's been afebrile. Hemodynamically stable. Ultrasound of the right chest shows 5 cm fluid pocket. Chest x-ray reveals stable right pleural effusion with right basilar opacity and more nodular component along the minor fissure. He is maintained on antibiotics and IV diuretics. The patient seen again today 03/12/2018 in follow-up on the selective care unit. He is awake and alert in no acute distress. He is sitting up in a chair at the bedside. He denies any worsening shortness of breath, cough or congestion. Still not quite back to his baseline. He is maintaining good O2 saturations in the high 90s on 2 L/m per nasal cannula. He's been afebrile. Hemodynamically stable. The plan is for thoracentesis of the right pleural effusion however his INR is still 2.0. We'll give an additional milligrams of vitamin K today. Repeat an INR in the a.m. Once his INR is closer to 1.5 we'll proceed. Patient was reevaluated today on 03/13/2018, remains on selective, asymptomatic, patient is scheduled to have thoracentesis today, and after reviewing the INR today, I would proceed with a thoracentesis. Please refer to the operative report on the thoracentesis done today. All his labs were reviewed, INR is 1.4 CBC is relatively normal basic metabolic profile showed a BUN of 61 creatinine of 1.29. All meds were reviewed. And after the thoracentesis I will recommend discharging the patient home and follow up on outpatient basis. Objective - Vital Signs Vital signs: Vital Signs Temp 97.5 F L 03/13/18 08:00 Pulse 63 03/13/18 08:00 Resp 18 03/13/18 08:00 BP 144/65 03/13/18 08:00 Pulse Ox 99 03/13/18 08:00 Intake & Output 03/12/18 03/13/18 03/13/18 18:59 06:59 18:59 Intake Total 600 360 240 Output Total 325 Balance 275 360 240 Weight 80.1 kg Intake: Oral 600 360 240 Output: Urine 325 Other: Voiding Method Toilet Toilet Urinal Urinal # Voids 1 2 - Exam Physical Exam: Revealed an 82-year-old white male, pleasant, in no distress. Head: Atraumatic, normocephalic. HEENT:[Neck is supple.] [No neck masses.] [No thyromegaly.] [No JVD.] Chest: [Diminished breath sounds at the right base, left side is relatively clear, no crackles or rhonchi or wheezes. Dullness at the right base..] Cardiac Exam: [Normal S1 and S2, no S3 gallop, no murmur.] Abdomen: [Soft, nontender, no megaly, no rebound, no guarding, normal bowel sounds.] Extremities: [No clubbing, no edema, no cyanosis.] Neurological Exam: [No focal neurologic deficit. Psychiatric: Normal mood affect and mental status examination. Lymphatics: No lymphadenopathy.] - Labs CBC & Chem 7: 03/13/18 05:42 03/13/18 05:42 Labs: Abnormal Lab Results - Last 24 Hours (Table) 03/12/18 03/12/18 03/12/18 Range/Units 12:06 16:39 21:03 WBC (3.8-10.6) k/uL RBC (4.30-5.90) m/uL Hgb (13.0-17.5) gm/dL Hct (39.0-53.0) % MCV (80.0-100.0) fL Neutrophils # (1.3-7.7) k/uL Lymphocytes # (1.0-4.8) k/uL PT 17.3 H (9.0-12.0) sec INR 1.9 H (<1.2) Sodium (137-145) mmol/L BUN (9-20) mg/dL Creatinine (0.66-1.25) mg/dL Glucose (74-99) mg/dL POC Glucose (mg/dL) 155 H 169 H (75-99) mg/dL 03/13/18 03/13/18 03/13/18 Range/Units 05:42 05:42 05:42 WBC 15.2 H (3.8-10.6) k/uL RBC 3.32 L (4.30-5.90) m/uL Hgb 11.0 L (13.0-17.5) gm/dL Hct 33.7 L (39.0-53.0) % MCV 101.7 H (80.0-100.0) fL Neutrophils # 14.0 H (1.3-7.7) k/uL Lymphocytes # 0.5 L (1.0-4.8) k/uL PT 13.0 H (9.0-12.0) sec INR 1.4 H (<1.2) Sodium 136 L (137-145) mmol/L BUN 61 H (9-20) mg/dL Creatinine 1.29 H (0.66-1.25) mg/dL Glucose 134 H (74-99) mg/dL POC Glucose (mg/dL) (75-99) mg/dL 03/13/18 03/13/18 Range/Units 06:29 11:39 WBC (3.8-10.6) k/uL RBC (4.30-5.90) m/uL Hgb (13.0-17.5) gm/dL Hct (39.0-53.0) % MCV (80.0-100.0) fL Neutrophils # (1.3-7.7) k/uL Lymphocytes # (1.0-4.8) k/uL PT (9.0-12.0) sec INR (<1.2) Sodium (137-145) mmol/L BUN (9-20) mg/dL Creatinine (0.66-1.25) mg/dL Glucose (74-99) mg/dL POC Glucose (mg/dL) 170 H 175 H (75-99) mg/dL Microbiology - Last 24 Hours (Table) 03/10/18 21:18 Gram Stain - Final Sputum Sputum Culture - Final 03/10/18 10:49 Blood Culture - Preliminary Blood No Growth after 48 hours Assessment and Plan Assessment: #1 Acute on chronic hypoxic respiratory failure secondary to an acute exacerbation of diastolic congestive heart failure, stable chronic right-sided pleural effusion. #2 Acute on chronic diastolic congestive heart failure. Preserved left ventricular systolic function with ejection fraction 50-55%. #3 History of stable, loculated right pleural effusion. #4 Pericarinal lymph node measuring 2.5 x 1.7 cm, abnormal anterior superior mediastinal lymph node measuring 1.8 x 1.4 cm. Being followed in the outpatient setting. #5 Chronic atrial fibrillation, anticoagulated with warfarin. #6 Cardiac arrhythmia requiring permanent pacemaker implantation. #7 Remote history of DVT in 2006. #8 Hypertension. #9 Hyperlipidemia. #10 Coronary artery disease status post coronary artery bypass grafting. #11 Aortic valve stenosis status post aortic valve replacement utilizing a bioprosthetic aortic valve. #12 History of prostate cancer. #13 Chronic pain syndrome. #14 Anxiety/depression. #15 status post right sided thoracentesis, 800 mL of serosanguineous fluid was removed from the right pleural space on 03/13/2018. Recommendation: Continue present treatment plan, his Coumadin to be resumed, patient could be discharged home on follow-up on outpatient basis. Time with Patient: Less than 30
[2018-03-13 12:37] LABS: Hemoglobin A1C 5.9 % (4.0-6.0)
[2018-03-13 13:26] LABS: Appearance,BF Bloody; Nucleated Cells, Body Fluid 600 /uL; RBC, Body Fluid 27200 /uL
[2018-03-13 13:28] LABS: Mononuclear WBC,Body Fluid 50 %; Polynuclear WBC,Body Fluid 49 %; Total Cells Counted,Body Fluid 100
--- NOTE | 2018-03-13 13:37 | P.PN ---
Subjective Progress Note Date: 03/13/18 This is a pleasant 82-year-old gentleman who sees Dr. Goetz in the office on regular basis with a past medical history consistent off coronary artery disease and status post coronary artery bypass grafting, diastolic congestive heart failure based on an echocardiogram was performed in October 2017, valvular heart disease and status post aortic valve replacement using a bioprosthetic valve, chronic atrial fibrillation, and also status post permanent pacemaker implantation and beside that the patient does have chronic respiratory failure secondary to COPD and he is on oxygen at home, presented to the hospital complaining of shortness of breath.The chest x-ray showed findings consistent off right pleural effusion. The BNP came in to be around 5000.The last echocardiogram was in October 2017 and that showed normal left ventricular systolic function with normally functioning bioprosthetic aortic valve and mild MR, mild TR, and severe pulmonary hypertension. The pulmonary artery systolic pressure at that point was more than 60 mmHg. patient was seen and examined this morning, he has been marked for possible right-sided thoracentesis. His INR this morning is 1.9. Once the INR becomes within acceptable range, thoracentesis will be performed on the right side. 03/13/2018 Patient seen and examined this morning, INR 1.4, potassium 5.0, creatinine 1.2. Scheduled today to undergo thoracentesis by Dr. Cm. Blood pressure 122/60 heart rate in the 60s. White blood cell count 15.2, hemoglobin 11.0, platelet count 244. Sodium 136, potassium 5.0, BUN 61, creatinine 1.2. Objective - Vital Signs Vital signs: Vital Signs Temp 97.1 F L 03/13/18 12:00 Pulse 63 03/13/18 12:00 Resp 18 03/13/18 12:00 BP 122/60 03/13/18 12:00 Pulse Ox 97 03/13/18 12:00 Intake & Output 03/12/18 03/13/18 03/13/18 18:59 06:59 18:59 Intake Total 600 360 240 Output Total 325 Balance 275 360 240 Weight 80.1 kg Intake: Oral 600 360 240 Output: Urine 325 Other: Voiding Method Toilet Toilet Urinal Urinal # Voids 1 2 # Bowel Movements 0 - Exam PHYSICAL EXAMINATION: GENERAL: 82-year-old gentleman in no apparent distress at the time of my examination HEENT: Head is atraumatic, normocephalic. Pupils equal, round. Sclera anicteric. Conjunctiva are clear. Mucous membranes of the mouth are moist. Neck is supple. There is no elevated jugular venous pressure.] bruit is heard. HEART EXAMINATION: Heart S1, S2 systolic murmur is heard . No murmur or gallop heard. CHEST EXAMINATION: Lungs reveal diminished air entry to the right posteriorly ABDOMEN: Soft, nontender. Bowel sounds are heard. No organomegaly noted. EXTREMITIES: 2+ peripheral pulses with no evidence of peripheral edema and no calf tenderness noted. NEUROLOGIC patient is awake, alert and oriented ?-3. . - Labs CBC & Chem 7: 03/13/18 05:42 03/13/18 05:42 Labs: Abnormal Lab Results - Last 24 Hours (Table) 03/12/18 03/12/18 03/13/18 Range/Units 16:39 21:03 05:42 WBC 15.2 H (3.8-10.6) k/uL RBC 3.32 L (4.30-5.90) m/uL Hgb 11.0 L (13.0-17.5) gm/dL Hct 33.7 L (39.0-53.0) % MCV 101.7 H (80.0-100.0) fL Neutrophils # 14.0 H (1.3-7.7) k/uL Lymphocytes # 0.5 L (1.0-4.8) k/uL PT (9.0-12.0) sec INR (<1.2) Sodium (137-145) mmol/L BUN (9-20) mg/dL Creatinine (0.66-1.25) mg/dL Glucose (74-99) mg/dL POC Glucose (mg/dL) 155 H 169 H (75-99) mg/dL Lactate Dehydrogenase (313-618) U/L 03/13/18 03/13/18 03/13/18 Range/Units 05:42 05:42 05:42 WBC (3.8-10.6) k/uL RBC (4.30-5.90) m/uL Hgb (13.0-17.5) gm/dL Hct (39.0-53.0) % MCV (80.0-100.0) fL Neutrophils # (1.3-7.7) k/uL Lymphocytes # (1.0-4.8) k/uL PT 13.0 H (9.0-12.0) sec INR 1.4 H (<1.2) Sodium 136 L (137-145) mmol/L BUN 61 H (9-20) mg/dL Creatinine 1.29 H (0.66-1.25) mg/dL Glucose 134 H (74-99) mg/dL POC Glucose (mg/dL) (75-99) mg/dL Lactate Dehydrogenase 680 H (313-618) U/L 03/13/18 03/13/18 Range/Units 06:29 11:39 WBC (3.8-10.6) k/uL RBC (4.30-5.90) m/uL Hgb (13.0-17.5) gm/dL Hct (39.0-53.0) % MCV (80.0-100.0) fL Neutrophils # (1.3-7.7) k/uL Lymphocytes # (1.0-4.8) k/uL PT (9.0-12.0) sec INR (<1.2) Sodium (137-145) mmol/L BUN (9-20) mg/dL Creatinine (0.66-1.25) mg/dL Glucose (74-99) mg/dL POC Glucose (mg/dL) 170 H 175 H (75-99) mg/dL Lactate Dehydrogenase (313-618) U/L Microbiology - Last 24 Hours (Table) 03/10/18 10:49 Blood Culture - Preliminary Blood No Growth after 72 hours 03/10/18 21:18 Gram Stain - Final Sputum Sputum Culture - Final Assessment and Plan Plan: Assessment #1 congestive heart failure exacerbation secondary to diastolic dysfunction #2 recurrent right pleural effusion probably secondary to the above. #3 rule out pneumonia #4 coronary artery disease and status post CABG #5 chronic atrial fibrillation was controlled heart rate #6 status post permanent pacemaker implantation #7 chronic respiratory failure on home oxygen #8 Multiple comorbid conditions Plan We will continue current dose of Lasix. Ultrasound of the chest has been performed and patient will be scheduled to undergo right-sided thoracentesis today . Once this is performed, we will need to resume the patient's Coumadin. We will continue to follow. DNP note has been reviewed, I agree with a documented findings and plan of care. Patient was seen and examined.
--- NOTE | 2018-03-13 14:06 | PCN ---
PROCEDURE NOTE OPERATIVE REPORT: Right-sided thoracentesis. PREOPERATIVE DIAGNOSIS: Right pleural effusion. POSTOPERATIVE DIAGNOSIS: Right pleural effusion. ANESTHESIA USED: 2 mL of 1% lidocaine. PROCEDURE: The patient was placed in a sitting upright position, the area below the right scapula which was earlier localized by ultrasound, was prepared in a sterile fashion and drapes were applied. At the level of the 9th intercostal space and tip of the scapula, the area was anesthetized using lidocaine. Then, a 26-gauge needle was advanced into the pleural space until the fluid was localized again with the needle. Then a small tiny incision was made at the same site. A standard thoracentesis catheter and needle were used, advanced into the pleural space and fluid was obtained and the catheter was advanced out of the needle and the needle was pulled out of the pleural space. Free- flowing fluid was removed, roughly 800 mL of serosanguineous fluid was removed from the right pleural space. The procedure was well tolerated, no evidence of any immediate complications. A chest x-ray was ordered postoperatively, and the fluid was sent for different diagnostic studies. MMODL / IJN: [id number] /
--- NOTE | 2018-03-13 16:12 | P.PN ---
Subjective 82 years old male with past medical history of atrial fibrillation, status post pacemaker area coronary artery disease, status post cardiac cath. heart failure , COPD, DVT on Coumadin, GERD, hyperlipidemia, hypertension, pneumonia, prostate disorder on home oxygen, recurrent pleural effusion,, prostate cancer status post surgery, aortic valve replacement in 2016. He presents because of progressive dyspnea over several days, pt is not very good historian , he states he has dyspnea on exertion all the time but yesterday it got worse overnight , he tried to increase his home oxygen from 2 to 3 L/M however did not help so decided to come to ED, pt denies to me chest pain , no cough or phlegm. no change in urine or bowel habits , no fever. 03/12/2018 Patient still have some dyspnea. His creatinine is trending up from 1.0-1.3. Elevated d-dimer but has His INR 2.0 today. And doubly BC increased from 8.9 to 14.7, but he is on IV Solu-Medrol. Oxygen Saturating high 90s on 2 L NC. Patient got 1 dose of vitamin K 10 mg by mouth. A still on antibiotics for possible pneumonia 03/13/2018 patient still dyspneic however his dyspnea is improving, creatinine stable at 1.3, patient has elevated d-dimer, however his INR is subtherapeutic today at 1.4 after he got 10 mg of by mouth vitamin K for his thoracocentesis patient will be started on Lovenox for bridging and increase Coumadin dose tonight Objective - Vital Signs Vital signs: Vital Signs Temp 97.1 F L 03/13/18 12:00 Pulse 63 03/13/18 12:00 Resp 18 03/13/18 12:00 BP 122/60 03/13/18 12:00 Pulse Ox 97 03/13/18 12:00 Intake & Output 03/12/18 03/13/18 03/13/18 18:59 06:59 18:59 Intake Total 600 360 480 Output Total 325 Balance 275 360 480 Weight 80.1 kg Intake: Oral 600 360 480 Output: Urine 325 Other: Voiding Method Toilet Toilet Urinal Urinal # Voids 1 2 # Bowel Movements 0 - Exam GENERAL: The patient is alert and oriented x3, not in any acute distress. Well developed, well nourished. HEENT: Pupils are round and equally reacting to light. EOMI. No scleral icterus. No conjunctival pallor. Normocephalic, atraumatic. No pharyngeal erythema. No thyromegaly. CARDIOVASCULAR: S1 and S2 present. No murmurs, rubs, or gallops. -PULMONARY: Chest is clear to auscultation, or crackles. B/L scattered wheezing ABDOMEN: Soft, nontender, nondistended, normoactive bowel sounds. No palpable organomegaly. MUSCULOSKELETAL: No joint swelling or deformity. EXTREMITIES: No cyanosis, clubbing, or pedal edema. NEUROLOGICAL: Gross neurological examination did not reveal any focal deficits. SKIN: No rashes - Labs CBC & Chem 7: 03/13/18 05:42 03/13/18 05:42 Labs: Abnormal Lab Results - Last 24 Hours (Table) 03/12/18 03/12/18 03/13/18 Range/Units 16:39 21:03 05:42 WBC 15.2 H (3.8-10.6) k/uL RBC 3.32 L (4.30-5.90) m/uL Hgb 11.0 L (13.0-17.5) gm/dL Hct 33.7 L (39.0-53.0) % MCV 101.7 H (80.0-100.0) fL Neutrophils # 14.0 H (1.3-7.7) k/uL Lymphocytes # 0.5 L (1.0-4.8) k/uL PT (9.0-12.0) sec INR (<1.2) Sodium (137-145) mmol/L BUN (9-20) mg/dL Creatinine (0.66-1.25) mg/dL Glucose (74-99) mg/dL POC Glucose (mg/dL) 155 H 169 H (75-99) mg/dL Lactate Dehydrogenase (313-618) U/L 03/13/18 03/13/18 03/13/18 Range/Units 05:42 05:42 05:42 WBC (3.8-10.6) k/uL RBC (4.30-5.90) m/uL Hgb (13.0-17.5) gm/dL Hct (39.0-53.0) % MCV (80.0-100.0) fL Neutrophils # (1.3-7.7) k/uL Lymphocytes # (1.0-4.8) k/uL PT 13.0 H (9.0-12.0) sec INR 1.4 H (<1.2) Sodium 136 L (137-145) mmol/L BUN 61 H (9-20) mg/dL Creatinine 1.29 H (0.66-1.25) mg/dL Glucose 134 H (74-99) mg/dL POC Glucose (mg/dL) (75-99) mg/dL Lactate Dehydrogenase 680 H (313-618) U/L 03/13/18 03/13/18 Range/Units 06:29 11:39 WBC (3.8-10.6) k/uL RBC (4.30-5.90) m/uL Hgb (13.0-17.5) gm/dL Hct (39.0-53.0) % MCV (80.0-100.0) fL Neutrophils # (1.3-7.7) k/uL Lymphocytes # (1.0-4.8) k/uL PT (9.0-12.0) sec INR (<1.2) Sodium (137-145) mmol/L BUN (9-20) mg/dL Creatinine (0.66-1.25) mg/dL Glucose (74-99) mg/dL POC Glucose (mg/dL) 170 H 175 H (75-99) mg/dL Lactate Dehydrogenase (313-618) U/L Microbiology - Last 24 Hours (Table) 03/10/18 10:49 Blood Culture - Preliminary Blood No Growth after 72 hours 03/10/18 21:18 Gram Stain - Final Sputum Sputum Culture - Final Assessment and Plan Assessment: COPD, on home oxygen Possible pneumonia Right side pleural effusion, recurrent. status post thoracocentesis atrial fibrillation, status post pacemaker area , on Coumadin coronary artery disease, status post cardiac cath. heart failure, Remote DVT in 2006 GERD hyperlipidemia hypertension prostate cancer status post surgery aortic valve replacement in 2015 Plan: Patient presents with clinical pictures of COPD exacerbation. Continue with same treatment. Continue with symptomatic treatment. Continue with oxygen, breathing treatment, and the steroids. Pulmonary consult is appreciated. Patient was started on antibiotics Zithromax and ceftriaxone . Continue with a blood pressure medication. S/P thoracocentesis on 03/12/2018. Patient with high troponin, cardiology consult is appreciated, workup as per cardiology. DVT and GI prophylaxis. . is bridged with Lovenox, discussed with the pharmacy about the dose. Increased dose of Coumadin temporarily and f/u INR, Further recommendation based on the clinical course The prophylaxis, already on Coumadin GI prophylaxis Pepcid PT/OT: Home Prognosis is guarded
[2018-03-13 16:26] LABS: Glucose,Whole Blood 152 mg/dL (75-99)
[2018-03-13] MEDS: ENOXAPARIN 80 MG/0.8 ML SYRINGE SQ SCH (17:28)
[2018-03-13 17:47] LABS: Total Protein, Body Fluid 2300 mg/dL
[2018-03-13] MEDS ORDERED: WARFARIN 3 MG TAB PO ONE (18:00)
[2018-03-13] MEDS: ATORVASTATIN 10 MG TAB PO SCH (19:49)
[2018-03-13] MEDS: traZODone HCL 100 MG TAB PO SCH (19:49)
[2018-03-13 20:59] LABS: Glucose,Whole Blood 145 mg/dL (75-99)
[2018-03-13] MEDS ORDERED: WARFARIN 2 MG TAB PO SCH (21:00)
[2018-03-13] MEDS ORDERED: WARFARIN 5 MG TAB PO SCH (21:00)
[2018-03-13] MEDS: LORazepam 0.5 MG TAB PO PRN (21:37)
[2018-03-14] MEDS: methylPREDNISolone SOD SUCCI 40 MG/ML 1 ML VIAL IV SCH ×3 (00:06→08:27)
[2018-03-14 00:47] VITALS: RESP 16
[2018-03-14 06:10] LABS: Basophils % (A) 0 %; Eosinophils % (A) 0 %; HGB 11.1 gm/dL (13.0-17.5); Lymphocytes # (A) 0.5 k/uL (1.0-4.8); Lymphocytes % (A) 3 %; MCH 33.7 pg (25.0-35.0); MCHC 33.6 g/dL (31.0-37.0); MCV 100.4 fL (80.0-100.0); Macrocytosis Slight; Mean Platelet Volume 7.1; Monocytes # (A) 0.6 k/uL (0-1.0); Monocytes % (A) 4 %; Neutrophils # (A) 11.9 k/uL (1.3-7.7); Neutrophils % (A) 91 %; Platelet Count 207 k/uL (150-450); RBC 3.29 m/uL (4.30-5.90); RDW 13.8 % (11.5-15.5); WBC 13.1 k/uL (3.8-10.6)
[2018-03-14 06:11] LABS: Glucose,Whole Blood 149 mg/dL (75-99)
[2018-03-14 06:16] LABS: INR 1.3 (<1.2); Prothrombin Time 12.1 sec (9.0-12.0)
[2018-03-14] MEDS: INSULIN ASPART 100 UNIT/ML 1 ML 10 ML VIAL SQ SCH ×2 (06:30→12:23)
[2018-03-14] MEDS: SUCRALFATE 1 GM TAB PO SCH (06:31)
[2018-03-14] MEDS: cefTRIAXone IN SWFI 1,000 MG/10 ML SYRINGE IVP SCH (08:27)
[2018-03-14] MEDS: FUROSEMIDE 10 MG/ML 4 ML VIAL IV SCH (08:27)
[2018-03-14] MEDS: ENOXAPARIN 80 MG/0.8 ML SYRINGE SQ SCH (08:27)
[2018-03-14] MEDS: AZITHROMYCIN 500 MG TAB PO SCH (08:28)
[2018-03-14] MEDS: LISINOPRIL 2.5 MG TAB PO SCH (08:28)
[2018-03-14] MEDS: MORPHINE SULFATE ER 30 MG TABLET PO SCH (08:28)
[2018-03-14] MEDS: CARVEDILOL 12.5 MG TAB PO SCH (08:28)
[2018-03-14] MEDS: FAMOTIDINE 20 MG TAB PO SCH (08:29)
[2018-03-14] MEDS: POLYETHYLENE GLYCOL 3350 17 GM POWD.PACK PO SCH (08:29)
[2018-03-14 10:32] VITALS: BP 164/75; PULSE 61; TEMP 98.2
--- NOTE | 2018-03-14 11:50 | P.PN ---
Subjective Progress Note Date: 03/14/18 Principal diagnosis: Acute on chronic hypoxic respiratory failure, diastolic congestive heart failure and right-sided pleural effusion This is a very pleasant 82-year-old gentleman who follows with Dr. Lundberg as his primary care physician. He has a history of coronary artery disease, aortic valve stenosis with previous bypass surgery and valve replacement, chronic atrial fibrillation status post permanent pacemaker implantation on oral anticoagulants, DVT of the left lower extremity, congestive heart failure, pulmonary hypertension. The patient also has a history of recurrent pleural effusions with initial thoracentesis done here in June 2017, thoracentesis of the right lung again in August 2017 in [place]. The patient also has a history of sepsis with bacteremia requiring PICC line insertion for prolonged antibiotics. He has been admitted here a couple of times this year for shortness of breath, cough and congestion. The right pleural effusion is loculated and he has not had any subsequent thoracentesis done. He follows with Dr. Ballard in our office. FEV1 value 73% of predicted. He does have a pericarinal lymph node measuring 2.5 x 1.7 cm. There is an abnormal anterior superior mediastinal lymph node just anterior to left common carotid artery measuring 1.8 x 1.4 cm. He was treating the patient conservatively. Patient presented here to the emergency room again this morning with complaints of shortness of breath. He is seen there in consultation. He denies any cough or congestion. No fever chills or night sweats. No nausea vomiting or diarrhea. Mainly of progressive shortness of breath over the past several days. Chest x- ray continues to show persistent pleuroparenchymal opacity of the right lung base. There is mild stranding of the left medial lung base. No clear evidence of pneumonia. He is maintaining good O2 saturations in the upper 90s on 2 L/m per nasal cannula. He is afebrile. White count 8.9. Hemoglobin 12.1. INR 2.5. Creatinine 1.09. Troponin 0.043. ProBNP 5030. The patient is seen again today 03/11/2018 in follow-up on the selective care unit. He is currently sitting up in a chair at the bedside. He is awake and alert in no acute distress. Maintaining good O2 saturations in the mid 90s on 2 L/m per nasal cannula. He's been afebrile. Hemodynamically stable. Ultrasound of the right chest shows 5 cm fluid pocket. Chest x-ray reveals stable right pleural effusion with right basilar opacity and more nodular component along the minor fissure. He is maintained on antibiotics and IV diuretics. The patient seen again today 03/12/2018 in follow-up on the selective care unit. He is awake and alert in no acute distress. He is sitting up in a chair at the bedside. He denies any worsening shortness of breath, cough or congestion. Still not quite back to his baseline. He is maintaining good O2 saturations in the high 90s on 2 L/m per nasal cannula. He's been afebrile. Hemodynamically stable. The plan is for thoracentesis of the right pleural effusion however his INR is still 2.0. We'll give an additional milligrams of vitamin K today. Repeat an INR in the a.m. Once his INR is closer to 1.5 we'll proceed. Patient was reevaluated today on 03/13/2018, remains on selective, asymptomatic, patient is scheduled to have thoracentesis today, and after reviewing the INR today, I would proceed with a thoracentesis. Please refer to the operative report on the thoracentesis done today. All his labs were reviewed, INR is 1.4 CBC is relatively normal basic metabolic profile showed a BUN of 61 creatinine of 1.29. All meds were reviewed. And after the thoracentesis I will recommend discharging the patient home and follow up on outpatient basis. Reevaluated today on 03/14/2018, patient is doing well, asymptomatic, would like to be discharged home, I have cleared him for discharge yesterday, but the hospice was consistent about his Coumadin dosing, and I recommended that he goes on his usual dose of Coumadin, and no need to keep him for few days to get the Coumadin therapeutic. Patient denies any cough no wheezing no shortness of breath. The results of the pleural effusion are pending. Objective - Vital Signs Vital signs: Vital Signs Temp 98.2 F 03/14/18 08:00 Pulse 61 03/14/18 08:00 Resp 16 03/14/18 08:00 BP 164/75 03/14/18 08:00 Pulse Ox 97 03/14/18 08:00 Intake & Output 03/13/18 03/14/18 03/14/18 18:59 06:59 18:59 Intake Total 720 240 360 Balance 720 240 360 Weight 79 kg Intake: Oral 720 240 360 Other: Voiding Method Toilet # Voids 2 # Bowel Movements 0 - Exam Physical Exam: Revealed an 82-year-old white male, pleasant, in no distress. Head: Atraumatic, normocephalic. HEENT:[Neck is supple.] [No neck masses.] [No thyromegaly.] [No JVD.] Chest: [Diminished breath sounds at the right base, left side is relatively clear, no crackles or rhonchi or wheezes. ] Cardiac Exam: [Normal S1 and S2, no S3 gallop, no murmur.] Abdomen: [Soft, nontender, no megaly, no rebound, no guarding, normal bowel sounds.] Extremities: [No clubbing, no edema, no cyanosis.] Neurological Exam: [No focal neurologic deficit. Psychiatric: Normal mood affect and mental status examination. Lymphatics: No lymphadenopathy.] - Labs CBC & Chem 7: 03/14/18 05:40 03/13/18 05:42 Labs: Abnormal Lab Results - Last 24 Hours (Table) 03/13/18 03/13/18 03/13/18 Range/Units 05:42 16:24 20:55 WBC (3.8-10.6) k/uL RBC (4.30-5.90) m/uL Hgb (13.0-17.5) gm/dL Hct (39.0-53.0) % MCV (80.0-100.0) fL Neutrophils # (1.3-7.7) k/uL Lymphocytes # (1.0-4.8) k/uL PT (9.0-12.0) sec INR (<1.2) POC Glucose (mg/dL) 152 H 145 H (75-99) mg/dL Lactate Dehydrogenase 680 H (313-618) U/L 03/14/18 03/14/18 03/14/18 Range/Units 05:40 05:40 06:08 WBC 13.1 H (3.8-10.6) k/uL RBC 3.29 L (4.30-5.90) m/uL Hgb 11.1 L (13.0-17.5) gm/dL Hct 33.0 L (39.0-53.0) % MCV 100.4 H (80.0-100.0) fL Neutrophils # 11.9 H (1.3-7.7) k/uL Lymphocytes # 0.5 L (1.0-4.8) k/uL PT 12.1 H (9.0-12.0) sec INR 1.3 H (<1.2) POC Glucose (mg/dL) 149 H (75-99) mg/dL Lactate Dehydrogenase (313-618) U/L Microbiology - Last 24 Hours (Table) 03/13/18 11:00 Gram Stain - Preliminary Pleural Fluid Body Fluid Culture - Preliminary 03/10/18 10:49 Blood Culture - Preliminary Blood No Growth after 72 hours 03/10/18 21:18 Gram Stain - Final Sputum Sputum Culture - Final Assessment and Plan Assessment: #1 Acute on chronic hypoxic respiratory failure secondary to an acute exacerbation of diastolic congestive heart failure, stable chronic right-sided pleural effusion. Considering that the pleural effusion has been recurrent, possibility of underlying neoplastic pleural effusion is not entirely ruled out , but previous cytology was negative. Patient was made aware that we are still concerned about the possibility of underlying malignancy. #2 Acute on chronic diastolic congestive heart failure. Preserved left ventricular systolic function with ejection fraction 50-55%. #3 History of stable, loculated right pleural effusion. #4 Pericarinal lymph node measuring 2.5 x 1.7 cm, abnormal anterior superior mediastinal lymph node measuring 1.8 x 1.4 cm. Being followed in the outpatient setting. #5 Chronic atrial fibrillation, anticoagulated with warfarin. #6 Cardiac arrhythmia requiring permanent pacemaker implantation. #7 Remote history of DVT in 2006. #8 Hypertension. #9 Hyperlipidemia. #10 Coronary artery disease status post coronary artery bypass grafting. #11 Aortic valve stenosis status post aortic valve replacement utilizing a bioprosthetic aortic valve. #12 History of prostate cancer. #13 Chronic pain syndrome. #14 Anxiety/depression. #15 status post right sided thoracentesis, 800 mL of serosanguineous fluid was removed from the right pleural space on 03/13/2018. Recommendation: Continue present treatment plan, his Coumadin to be resumed, patient could be discharged home today. Time with Patient: Less than 30
[2018-03-14 11:52] LABS: Glucose,Whole Blood 129 mg/dL (75-99)
--- NOTE | 2018-03-14 12:20 | P.DS ---
Providers Date of admission: 03/10/18 10:15 Attending physician: Drew Nevarez Consults: 03/10/18 10:53 Consult Physician Routine Consulting Provider: Guillaume Ballard Consult Reason/Comments: copd Do you want consulting provider notified?: Yes 03/10/18 17:47 Consult Physician Urgent Consulting Provider: Ravi Goetz Consult Reason/Comments: -positive troponin Do you want consulting provider notified?: Yes Primary care physician: Adolfo Lieberman DO Hospital Course: 82 years old male with past medical history of atrial fibrillation, status post pacemaker area coronary artery disease, status post cardiac cath. heart failure , COPD, DVT in 2007 , GERD, hyperlipidemia, hypertension, pneumonia, prostate disorder on home oxygen, recurrent pleural effusion, prostate cancer status post surgery, aortic valve replacement in 2016. He presents because of progressive dyspnea over several days, he states he has dyspnea on exertion all the time but one day earlier it got worse overnight , he tried to increase his home oxygen from 2 to 3 L/M however did not help so decided to come to ED, pt denies to me chest pain , no cough or phlegm. no change in urine or bowel habits , no fever. On admission patient was found to have 5 cm of the fluid pocket on the right chest on ultrasound. Patient got thoracocentesis (800 mL of serosanguineous fluid was removed from the right pleural space on 03/13/2018.) . Patient was treated also with Lasix diuresis. Patient has been evaluated by pulmonary and cardiology team. And he showed interval improvement in his symptoms. His dyspnea has resolved, breathing is unlabored. And his return to his baseline and he thinks he is ready to be discharged. Patient was cleared by cardiology and pulmonary team for discharge. Patient was on Coumadin for chronic atrial fibrillation . Patient received 10 mg vitamin K before the thoracocentesis and his INR dropped from 2 to 1.4, and 1.3. Patient got 2 doses of Lovenox 80 mg daily for bridging. And increase his Coumadin from 7 mg by mouth daily to 10 mg yesterday and today. However patient didn't want to wait till his INR Corrected and he states he is going to sign leaving AMA if he is not discharged today , it was felt that discharge and her today has more benefits than keeping him in the hospital of the risks of signing leaving AMA, the decision was made to discharge the patient's today with the following recommendation: patient was instructed to take 10 mg of Coumadin tonight and resume his Coumadin tomorrow at 7 mg by mouth daily at bedtime and instructed him to follow-up for his INR. Patient is telling me he can go to see his doctor on Thursday and check his INR. Also he states he doesn't need any more prescription for Coumadin and even for the 10 mg tonight he can take 2 tablets of 5 mg. I discussed the case with Dr. Macdonald from cardiology and he said it's okay to discharge him with this recommendation of anticoagulation. As per pulmonary node patient has pericarinal lymph node measuring 2.5 x 1.7 cm and abnormal anterior superior mediastinal lymph node measuring 1.8 x 1.4 cm and be followed in the outpatient setting. Patient was instructed to follow up with pulmonary as directed in one week risks including but not limited to cancer are explained to the patient and he verbalized understanding and acceptance to do the follow-up as recommended Patient also was treated with IV steroids for elements of COPD. Patient on discharge day was significantly improved. Patient has been evaluated by farm reporter for congestive heart failure Orz patient secondary to diastolic dysfunction. Patient was treated with Lasix with slight trending up of creatinine to 1.3 which which is a stable. Patient is informed and asked to follow-up with his PCP and he agrees Shunt was cleared by cardiology and pulmonary services for discharge. Problems and management plan were discussed with patient the details and he verbalized understanding and acceptance. Patient is found stable and can be discharged home however he needs follow-up as an outpatient. Patient states he will make appointments for himself since today is weakened appointments could be made by medical staff GENERAL: The patient is alert and oriented x3, not in any acute distress. Well developed, well nourished. HEENT: Pupils are round and equally reacting to light. EOMI. No scleral icterus. No conjunctival pallor. Normocephalic, atraumatic. No pharyngeal erythema. No thyromegaly. CARDIOVASCULAR: S1 and S2 present. No murmurs, rubs, or gallops. PULMONARY: Chest is clear to auscultation, no wheezing or crackles. ABDOMEN: Soft, nontender, nondistended, normoactive bowel sounds. No palpable organomegaly. MUSCULOSKELETAL: No joint swelling or deformity. EXTREMITIES: No cyanosis, clubbing, or pedal edema. NEUROLOGICAL: Gross neurological examination did not reveal any focal deficits. SKIN: No rashes. Time spent more than 35 minutes Patient Condition at Discharge: Fair Plan - Discharge Summary Discharge Rx Participant: No New Discharge Prescriptions: No Action Ferrous Sulfate [Iron (65 MG Elemental)] 325 mg PO DAILY Carvedilol 25 mg PO DAILY oxyCODONE HCL 15 mg PO BID PRN PRN Reason: Pain LORazepam [Ativan] 0.5 mg PO QID PRN PRN Reason: Anxiety Ubidecarenone [Co Q-10] 200 mg PO DAILY Sucralfate [Carafate] 1 gm PO BID-W/MEALS Lovastatin [Mevacor] 20 mg PO HS Morphine Sulfate ER [Ms Contin] 30 mg PO Q12HR traZODone HCL 100 mg PO HS Warfarin [Coumadin] 5 mg PO HS Warfarin [Coumadin] 2 mg PO HS Furosemide [Lasix] 40 mg PO BID #60 tablet Polyethylene Glycol 3350 [Miralax] 17 gm PO DAILY powd.pack Lisinopril [Zestril] 2.5 mg PO DAILY Promethazine HCl 12.5 mg PO BID PRN PRN Reason: Nausea Discharge Medication List Carvedilol 25 mg PO DAILY 06/19/15 [History] Ferrous Sulfate [Iron (65 MG Elemental)] 325 mg PO DAILY 06/19/15 [History] oxyCODONE HCL 15 mg PO BID PRN 06/19/15 [History] LORazepam [Ativan] 0.5 mg PO QID PRN 07/28/16 [History] Sucralfate [Carafate] 1 gm PO BID-W/MEALS 07/28/16 [History] Ubidecarenone [Co Q-10] 200 mg PO DAILY 07/28/16 [History] Lovastatin [Mevacor] 20 mg PO HS 11/20/17 [History] Morphine Sulfate ER [Ms Contin] 30 mg PO Q12HR 11/20/17 [History] Warfarin [Coumadin] 2 mg PO HS 11/20/17 [History] Warfarin [Coumadin] 5 mg PO HS 11/20/17 [History] traZODone HCL 100 mg PO HS 11/20/17 [History] Furosemide [Lasix] 40 mg PO BID #60 tablet 11/21/17 [Rx] Polyethylene Glycol 3350 [Miralax] 17 gm PO DAILY powd.pack 02/07/18 [Rx] Lisinopril [Zestril] 2.5 mg PO DAILY 03/10/18 [History] Promethazine HCl 12.5 mg PO BID PRN 03/10/18 [History] Amoxic-Pot Clav 875-125Mg [Augmentin 875-125] 1 tab PO Q12HR 3 Days #6 tablet [Rx] Warfarin [Coumadin] 3 mg PO ONCE 1 Days #1 tab 03/14/18 [Rx] predniSONE 0 mg PO DIRECTED #13 tab 03/14/18 [Rx] Follow up Appointment(s)/Referral(s): Guillaume Ballard MD [STAFF PHYSICIAN] - 1 Week Dima Cristina MD [STAFF PHYSICIAN] - 1 Week Adolfo Lieberman DO [Primary Care Provider] - 1-2 days [facility], [NON-STAFF] -
[2018-03-14] MEDS: FERROUS SULFATE 325 MG TAB PO SCH (12:31)
--- NOTE | 2018-03-17 07:56 | CDI ---
Last Revision, July 2017 Documentation Clarification Form Date: 03/17/2018 12:00:00 AM From: DOMINICK De La Paz; Brittani Torres Dairy Nutritionist Phone: If you have a question about this query, please contact Brittani Torres Dairy Nutritionist at [phone] between 8am and 5pm. Admit Date: 03/10/2018 10:15:00 AM Patient Name: Felton Mckee Visit Number: [id number] Discharge Date: 03/14/2018 ATTENTION: The Clinical Documentation Specialists (CDI) and [facility] Coding Staff appreciate your assistance in clarifying documentation. Please respond to the clarification below the line at the bottom and electronically sign. The CDI & [facility] Coding staff will review the response and follow-up if needed. Please note: Queries are made part of the Legal Health Record. If you have any questions, please contact the author of this message via ITS. Dr. Brown E Sheet Conflicting documentation regarding pneumonia has been found in the medical record and needs clarification for accurate coding. Pneumonia is documented as possible, rule out, and no clear evidence of pneumonia. On the discharge summary there is no reference of resolution to this working diagnosis. In your professional opinion, please clarify? Pneumonia ruled out Pneumonia ruled in Other, please specify Unable to determine unable to determine, possible pneumonia MTDD
== END 2018-03-14 12:46 | disposition home health service (06) | DRG 291 ==
LOC: EC 08:07 → 6SEL 10:15
PROVIDERS: ADMIT Hospitalist; ATTEND Hospitalist
PROC: 0W993ZZ Drainage of Right Pleural Cavity, Percutaneous Approach (ICD-10-PCS; principal; 2018-03-13)
DX: I11.0 Hypertensive heart disease with heart failure (principal); J96.21 Acute and chronic respiratory failure with hypoxia; J18.9 Pneumonia, unspecified organism; J90 Pleural effusion, not elsewhere classified; J44.1 Chronic obstructive pulmonary disease with (acute) exacerbation; I50.33 Acute on chronic diastolic (congestive) heart failure; E78.5 Hyperlipidemia, unspecified; F32.9 Major depressive disorder, single episode, unspecified; F41.9 Anxiety disorder, unspecified; G89.4 Chronic pain syndrome; I25.10 Atherosclerotic heart disease of native coronary artery without angina pectoris; I25.2 Old myocardial infarction; I27.20 Pulmonary hypertension, unspecified; I35.0 Nonrheumatic aortic (valve) stenosis; I48.2 Chronic atrial fibrillation; K21.9 Gastro-esophageal reflux disease without esophagitis; R79.1 Abnormal coagulation profile; Z79.01 Long term (current) use of anticoagulants; Z79.899 Other long term (current) drug therapy; Z79.891 Long term (current) use of opiate analgesic; Z82.49 Family history of ischemic heart disease and other diseases of the circulatory system; Z85.46 Personal history of malignant neoplasm of prostate; Z86.718 Personal history of other venous thrombosis and embolism; Z87.891 Personal history of nicotine dependence; Z95.0 Presence of cardiac pacemaker; Z95.1 Presence of aortocoronary bypass graft; Z95.3 Presence of xenogenic heart valve; Z99.81 Dependence on supplemental oxygen
CPT/HCPCS: 36415; 36569; 71045; 71046; 76604; 76937; 80048; 80053; 82550; 82553; 82945; 83036; 83615; 83735; 83880; 84155; 84157; 84484; 85025; 85379; 85610; 85730; 87040; 87070; 87205; 88108; 88305; 89050; 93005; 93306; 94644; 94760; 96365; 96366; 96375; 99291

== ENCOUNTER 2018-04-01 04:12 | Inpatient (IN) | payer MEDICARE ==
--- NOTE | 2018-04-01 05:03 | ED ---
General Adult HPI - General Chief complaint: Shortness of Breath Stated complaint: JOSELO Source: patient Mode of arrival: wheelchair Limitations: no limitations - History of Present Illness Initial comments: Dictation was produced using [employer] dictation software. please excuse any grammatical, word or spelling errors. Chief Complaint: 82-year-old male with past medical history of lymphadenopathy, A. fib, heart failure, COPD presents with shortness of breath since 2 hours ago. History of Present Illness: 82-year-old male presents with chief complaint of shortness of breath since 3 AM. Patient states she was sitting in a chair when he felt short of breath. Patient has extensive history of CHF and loculated right-sided pleural effusion. Patient recently had thoracentesis performed. Chart review shows that there was no malignant cells seen on the thoracentesis. Patient denies any constitutional symptoms. Patient reports he has a scheduled PET scan for workup of lymphadenopathy on Thursday. Patient otherwise feels at baseline. He is on Coumadin for aortic valve replacement. He has history of coronary artery disease and CABG. The ROS documented in this emergency department record has been reviewed and confirmed by me. Those systems with pertinent positive or negative responses have been documented in the HPI. All other systems are other negative and/or noncontributory. - Related Data Home Medications Medication Instructions Recorded Confirmed Carvedilol 25 mg PO DAILY 06/19/15 03/10/18 Ferrous Sulfate [Iron (65 MG 325 mg PO DAILY 06/19/15 03/10/18 Elemental)] oxyCODONE HCL 15 mg PO BID PRN 06/19/15 03/10/18 LORazepam [Ativan] 0.5 mg PO QID PRN 07/28/16 03/13/18 Sucralfate [Carafate] 1 gm PO BID-W/MEALS 07/28/16 03/10/18 Ubidecarenone [Co Q-10] 200 mg PO DAILY 07/28/16 03/10/18 Lovastatin [Mevacor] 20 mg PO HS 11/20/17 03/10/18 Morphine Sulfate ER [Ms Contin] 30 mg PO Q12HR 11/20/17 03/10/18 Warfarin [Coumadin] 2 mg PO HS 11/20/17 03/10/18 Warfarin [Coumadin] 5 mg PO HS 11/20/17 03/10/18 traZODone HCL 100 mg PO HS 11/20/17 03/10/18 Lisinopril [Zestril] 2.5 mg PO DAILY 03/10/18 03/10/18 Promethazine HCl 12.5 mg PO BID PRN 03/10/18 03/10/18 Previous Rx's Medication Instructions Recorded Furosemide [Lasix] 40 mg PO BID #60 tablet 11/21/17 Polyethylene Glycol 3350 [Miralax] 17 gm PO DAILY powd.pack 02/07/18 Amoxic-Pot Clav 875-125Mg 1 tab PO Q12HR 3 Days #6 tablet 03/14/18 [Augmentin 875-125] Warfarin [Coumadin] 3 mg PO ONCE 1 Days #1 tab 03/14/18 predniSONE 0 mg PO DIRECTED #13 tab 03/14/18 Allergies Allergy/AdvReac Type Severity Reaction Status Date / Time No Known Allergies Allergy Verified 04/01/18 04:18 Review of Systems ROS Statement: Those systems with pertinent positive or pertinent negative responses have been documented in the HPI. ROS Other: All systems not noted in ROS Statement are negative. Past Medical History Past Medical History: Atrial Fibrillation, Coronary Artery Disease (CAD), Cancer , Chest Pain / Angina, Heart Failure, COPD, Deep Vein Thrombosis (DVT), GERD/ Reflux, Hyperlipidemia, Hypertension, Myocardial Infarction (RI), Pneumonia, Prostate Disorder Additional Past Medical History / Comment(s): Home O2 at 2L/NC lately ATC, recurrent R pleural effusions, thoracic adenopathy, pneumonias, pneumonia with sepsis, bronchitis, bilateral lower leg edema/redness L lower leg, L leg DVT in 2006, chronic L leg pain/ neurological damage, BPH, prostrate cancer with surgery, constipation, recently had 4 teeth extracted, Last Myocardial Infarction Date:: 2005 History of Any Multi-Drug Resistant Organisms: None Reported Past Surgical History: Appendectomy, Cardiac Valve Replacement, Cholecystectomy , Heart Catheterization, Heart Catheterization With Stent, Hernia Repair, Pacemaker, Prostate Surgery Additional Past Surgical History / Comment(s): 2016 aortic valve replacement, bilateral cataracts removal, prostatectomy, penile implant x2, R sided thoracentesises, bilateral inguinal hernia repair, L leg dvt surgically removed , colonoscopies. Past Anesthesia/Blood Transfusion Reactions: Previous Problems w/ Anesthesia Additional Past Anesthesia/Blood Transfusion Reaction / Comment(s): "one time BP dropped too low" Date of Last Stent Placement:: 2005 Type of Cardiac Device: Permanent Pacemaker Device Placement Date:: 2004? Past Psychological History: Anxiety Smoking Status: Former smoker Past Alcohol Use History: None Reported Past Drug Use History: None Reported - Past Family History Brother(s) Family Medical History: Cancer Sister(s) Family Medical History: Cancer Father Family Medical History: Cancer Additional Family Medical History / Comment(s): Father had prostrate cancer. He had CAD/CABG. He at the age of 78yrs during coronary angioplasty. Mother Family Medical History: Myocardial Infarction (RI) Additional Family Medical History / Comment(s): Mother had a RI at the age of 35yrs. She had CABG. She lived to be 93 yrs old. General Exam - General Exam Comments Initial Comments: PHYSICAL EXAM: General Impression: Alert and oriented x3, not in acute distress HEENT: Normocephalic atraumatic, extra-ocular movements intact, pupils equal and reactive to light bilaterally, mucous membranes moist. Cardiovascular: Heart regular rate and rhythm, S1&S2 audible, no murmurs, rubs or gallops Chest: Diminished lung sounds bilaterally worse in the right than the left Abdomen: Bowel sounds present, abdomen soft, non-tender, non-distended, no organomegaly Musculoskeletal: Pulses present and equal in all extremities, no peripheral edema Motor: Power 5/5 bilaterally, no focal deficits noted Neurological: CN II-XII grossly intact, no focal motor or sensory deficits noted Skin: Erythema and edema to bilateral lower extremities patient reports is chronic Psych: Normal affect and mood Limitations: no limitations Course Vital Signs 04/01/18 04/01/18 04/01/18 04:15 04:18 05:18 Temperature 98.2 F Pulse Rate 61 60 Respiratory 18 16 16 Rate Blood Pressure 145/77 O2 Sat by Pulse 92 L 100 Oximetry 04/01/18 06:18 Temperature Pulse Rate 99 Respiratory 16 Rate Blood Pressure 141/65 O2 Sat by Pulse 99 Oximetry Medical Decision Making - Medical Decision Making ED course: 82-year-old male presents with chief complaint of shortness of breath started 2 hours ago. Vital signs upon arrival shows findings within acceptable limits. Patient is well-appearing. No signs of respiratory distress. Patient is 92 on room air. Chart review shows that patient has history of congestive heart failure.Laboratory evaluation obtained. CBC unremarkable. Hemoglobin 10.5 which is at around his baseline. Coagulation panel shows INR 1.7. This is subtherapeutic given the patient is taking it for aortic valve replacement. Potassium level slightly above normal at 5.2. Rest metabolic panel is unremarkable. Troponin level is 0.084 which is slightly above baseline. Patient having any chest pain symptoms. EKG shows paced rhythm without any findings to suggest sgarbossa criteria. There is however some possible ST segment depressions in anterior precordial leads. Patient not have any chest pain symptoms at this time. Serial EKGs were performed showing no dynamic changes. Chest x-ray obtained showing rate accumulation of right-sided pleural effusion and findings to suggest congestive heart failure. There is consideration of right lower lobe pneumonia per radiology however patient not having any coughing symptoms. No leukocytosis or other indirect signs of inflammation or physical exam findings to suggest pneumonia at this time. Given patient's extensive cardiac history and pleural effusion it is unclear what is causing his shortness of breath. Patient be admitted for serial troponins, pulmonology and cardiology consult. At this point it is likely patient's troponin elevation is secondary to troponin leak from history of CHF. EKG interpretation: Ventricular rate 60. Rhythm is ventricular paced, QRS 186, QTC 544. No W[place] prolongation, no QTC prolongation, no ST or T-wave changes noted. Second EKG was performed several minutes later with no dynamic changes.. Overall, this EKG is unremarkable - Lab Data Result diagrams: 04/01/18 05:33 04/01/18 05:33 Lab Results 04/01/18 04/01/18 04/01/18 Range/Units 05:33 05:33 05:33 WBC 6.0 (3.8-10.6) k/uL RBC 3.24 L (4.30-5.90) m/uL Hgb 10.5 L (13.0-17.5) gm/dL Hct 32.1 L (39.0-53.0) % MCV 99.1 (80.0-100.0) fL MCH 32.3 (25.0-35.0) pg MCHC 32.6 (31.0-37.0) g/dL RDW 13.8 (11.5-15.5) % Plt Count 193 (150-450) k/uL Neutrophils % 71 % Lymphocytes % 17 % Monocytes % 7 % Eosinophils % 2 % Basophils % 0 % Neutrophils # 4.3 (1.3-7.7) k/uL Lymphocytes # 1.0 (1.0-4.8) k/uL Monocytes # 0.4 (0-1.0) k/uL Eosinophils # 0.1 (0-0.7) k/uL Basophils # 0.0 (0-0.2) k/uL PT (9.0-12.0) sec INR (<1.2) APTT (22.0-30.0) sec Sodium (137-145) mmol/L Potassium (3.5-5.1) mmol/L Chloride (98-107) mmol/L Carbon Dioxide (22-30) mmol/L Anion Gap mmol/L BUN (9-20) mg/dL Creatinine (0.66-1.25) mg/dL Est GFR (CKD-EPI)AfAm (>60 ml/min/1.73 sqM) Est GFR (CKD-EPI)NonAf (>60 ml/min/1.73 sqM) Glucose (74-99) mg/dL Calcium (8.4-10.2) mg/dL Magnesium (1.6-2.3) mg/dL Total Bilirubin (0.2-1.3) mg/dL AST (17-59) U/L ALT (21-72) U/L Alkaline Phosphatase (38-126) U/L Total Creatine Kinase 28 L (55-170) U/L CK-MB (CK-2) 1.0 (0.0-2.4) ng/mL CK-MB (CK-2) Rel Index 3.6 Troponin I 0.084 H* (0.000-0.034) ng/mL NT-Pro-B Natriuret Pep 2420 pg/mL Total Protein (6.3-8.2) g/dL Albumin (3.5-5.0) g/dL 04/01/18 04/01/18 Range/Units 05:33 05:33 WBC (3.8-10.6) k/uL RBC (4.30-5.90) m/uL Hgb (13.0-17.5) gm/dL Hct (39.0-53.0) % MCV (80.0-100.0) fL MCH (25.0-35.0) pg MCHC (31.0-37.0) g/dL RDW (11.5-15.5) % Plt Count (150-450) k/uL Neutrophils % % Lymphocytes % % Monocytes % % Eosinophils % % Basophils % % Neutrophils # (1.3-7.7) k/uL Lymphocytes # (1.0-4.8) k/uL Monocytes # (0-1.0) k/uL Eosinophils # (0-0.7) k/uL Basophils # (0-0.2) k/uL PT 15.4 H (9.0-12.0) sec INR 1.7 H (<1.2) APTT 27.9 (22.0-30.0) sec Sodium 135 L (137-145) mmol/L Potassium 5.2 H (3.5-5.1) mmol/L Chloride 99 (98-107) mmol/L Carbon Dioxide 28 (22-30) mmol/L Anion Gap 8 mmol/L BUN 36 H (9-20) mg/dL Creatinine 1.24 (0.66-1.25) mg/dL Est GFR (CKD-EPI)AfAm 63 (>60 ml/min/1.73 sqM) Est GFR (CKD-EPI)NonAf 54 (>60 ml/min/1.73 sqM) Glucose 120 H (74-99) mg/dL Calcium 8.6 (8.4-10.2) mg/dL Magnesium 2.3 (1.6-2.3) mg/dL Total Bilirubin 0.6 (0.2-1.3) mg/dL AST 41 (17-59) U/L ALT 31 (21-72) U/L Alkaline Phosphatase 86 (38-126) U/L Total Creatine Kinase (55-170) U/L CK-MB (CK-2) (0.0-2.4) ng/mL CK-MB (CK-2) Rel Index Troponin I (0.000-0.034) ng/mL NT-Pro-B Natriuret Pep pg/mL Total Protein 6.7 (6.3-8.2) g/dL Albumin 3.7 (3.5-5.0) g/dL Disposition Clinical Impression: Dyspnea Disposition: ADMITTED IP TO THIS HOSP Condition: Fair Referrals: Adolfo Lieberman DO [Primary Care Provider] - 1-2 days Time of Disposition: 06:43
--- NOTE | 2018-04-01 05:18 | XR ---
EXAMINATION TYPE: XR chest 2V DATE OF EXAM: 04/01/2018 COMPARISON: 03/13/2018 HISTORY: Difficulty breathing TECHNIQUE: Frontal and lateral views of the chest are obtained. FINDINGS: Heart is enlarged. There is some pulmonary vascular congestion. There is blunting of right costophrenic angle with infiltrate in the right lower lobe. There is left axillary pacemaker with th e lead tip in the right ventricle. There are chest leads. IMPRESSION: There is congestive heart failure with right pleural effusion. Pleural fluid is increase d compared to last exam. Right lower lobe pneumonia is possible.
[2018-04-01 05:52] LABS: Basophils % (A) 0 %; Eosinophils # (A) 0.1 k/uL (0-0.7); Eosinophils % (A) 2 %; HCT 32.1 % (39.0-53.0); HGB 10.5 gm/dL (13.0-17.5); Lymphocytes % (A) 17 %; MCH 32.3 pg (25.0-35.0); MCHC 32.6 g/dL (31.0-37.0); MCV 99.1 fL (80.0-100.0); Mean Platelet Volume 7.1; Monocytes # (A) 0.4 k/uL (0-1.0); Monocytes % (A) 7 %; Neutrophils # (A) 4.3 k/uL (1.3-7.7); Neutrophils % (A) 71 %; Platelet Count 193 k/uL (150-450); RBC 3.24 m/uL (4.30-5.90); RDW 13.8 % (11.5-15.5)
[2018-04-01 06:01] LABS: Albumin 3.7 g/dL (3.5-5.0); Calcium 8.6 mg/dL (8.4-10.2); INR 1.7 (<1.2); Magnesium 2.3 mg/dL (1.6-2.3); Partial Thromboplastin Time 27.9 sec (22.0-30.0); Potassium 5.2 mmol/L (3.5-5.1); Prothrombin Time 15.4 sec (9.0-12.0); Total Bilirubin 0.6 mg/dL (0.2-1.3); Total Protein 6.7 g/dL (6.3-8.2)
[2018-04-01 06:31] LABS: Troponin I 0.084 ng/mL (0.000-0.034)
[2018-04-01] MEDS ORDERED: NALOXONE 0.4 MG/ML 1 ML VIAL IV PRN (06:33)
[2018-04-01] MEDS ORDERED: NITROGLYCERIN SL TABS 0.4 MG TAB SUBLINGUAL PRN (06:34)
[2018-04-01] MEDS ORDERED: PROMETHAZINE 25 MG TAB PO PRN (11:25)
[2018-04-01] MEDS ORDERED: RX INFO: IV CONTRAST WAS GIVEN 1 EACH MISC MISCELLANE PRN (11:26)
--- NOTE | 2018-04-01 12:39 | CT ---
EXAMINATION TYPE: CT chest w con DATE OF EXAM: 04/01/2018 COMPARISON: 11/20/2017 HISTORY: SOB CT DLP: 704 mGycm. Automated Exposure Control for Dose Reduction was Utilized. TECHNIQUE: CT scan of the thorax is performed following with IV Contrast, patient injected with 100 mL of Isovue 300. FINDINGS: LUNGS: Again there is a moderate pleural effusion and associated multifocal subsegmental compressive atelectasis. This is overall similar in volume to the prior exam. There is also interlobular septal t hickening that is seen bilaterally suggesting of fluid overload. 3 mm pulmonary nodule. Calcified on the prior exam with calcification now not seen likely due to slice selection. There is persistent mil d bilateral peribronchial cuffing, however no focal masses identified. Peripheral basilar subpleural reticulation likely also relates to fibrosis. Mild background centrilobular emphysema is also again n oted. MEDIASTINUM: Mediastinal adenopathy persists such as a precarinal lymph node measuring 1.8 cm in shor t axis and previously measuring 1.7 cm in short axis. Left supraclavicular adenopathy is also seen in addition to the mediastinal adenopathy. The main pulmonary artery appears enlarged measuring 3.6 cm. Ascending thoracic aorta is also enlarged measuring 4.3 cm. There is also mild cardiomegaly without pericardial effusion. Epiphrenic lymph nodes are seen and are nonenlarged. Extensive coronary artery and cardiac valvular calcifications are seen with post CABG changes of the chest dated left-sided car diac device. OTHER: Previously seen right thyroid nodule is less well visualized on today's exam given spray artif act. A solitary too small to accurately characterize hepatic lesion is seen on series 3 image 51. Ove rall there is low-attenuation in the hepatic parenchyma representing most commonly hepatic steatosis. This also limits evaluation for underlying hepatic mass. Fluid attenuated right renal cyst is identi fied. Gallbladder surgically absent and there is postsurgical dilatation of the common bile duct. Mul tilevel degenerative change of spine is seen with extensive likely degenerative changes the partially visualized of the upper lumbar spine. IMPRESSION: The exam is similar to the prior of 11/20/2017. Mediastinal adenopathy, moderate right ple ural effusion, pulmonary fibrosis, findings suggestive of cardiogenic fluid overload, and background emphysema persist. Given the persistent adenopathy PET/CT could be performed or bronchoscopy with viviane cerda for further evaluation.
--- NOTE | 2018-04-01 12:47 | HP ---
HISTORY AND PHYSICAL CHIEF COMPLAINT: Shortness of breath. HISTORY OF PRESENT ILLNESS: This is an 82-year-old gentleman with a past medical history of multiple medical problems including CAD, COPD, CHF, DVT, GERD, hypertension, myocardial infarction being followed by Dr. Simon, was complaining of shortness of breath. The patient is admitted to [facility] and Dr. Ballard performed a right-sided thoracocentesis. The cytology showed only mesothelial cells. Because of increasing difficulty, the patient came to [facility] admitted for further evaluation. Right pleural effusion was also noted. There is no history of fever, rigors. No history of headache, loss of consciousness and outpatient PET scan has been scheduled. PAST MEDICAL HISTORY: Atrial fibrillation, CAD, chest pain, CHF, COPD, DVT, GERD, hypertension, hyperlipidemia, recent right pleural effusion. MEDICATIONS: Prior to admission include, home medications are: 1. Trazodone 100 mg p.o. q.h.s. 2. Oxycodone 50 mg b.i.d. p.r.n. 3. Coumadin 5 mg q.h.s. and 2 mg q.h.s. 4. Coenzyme Q 200 mg p.o. daily. 5. Carafate 1 g p.o. b.i.d. 6. Promethazine 12.5 mg b.i.d. p.r.n. 7. MiraLAX 17 g daily. 8. Protonix 40 mg daily. 9. Multivitamins 1 p.o. daily. 10.MS Contin 60 mg p.o. b.i.d. 11.Mevacor 20 mg q.h.s. 12.Zestril 2.5 mg p.o. daily. 13.Ativan 0.5 mg q.i.d. p.r.n. 14.Lasix 40 mg p.o. b.i.d. 15.Iron sulfate 325 mg p.o. daily. 16.Coreg 25 mg p.o. daily. ALLERGIES: None. FAMILY HISTORY: History of prostate cancer, CAD, CABG. SOCIAL HISTORY: Previous history of smoking. No history of current smoking or alcohol intake. REVIEW OF SYSTEMS: ENT: No diminished hearing or vision. CARDIOVASCULAR SYSTEM: As mentioned earlier. RESPIRATORY: As mentioned earlier. GI: No nausea. : No dysuria. NERVOUS SYSTEM: No numbness or weakness. ALLERGY/IMMUNOLOGY: No asthma. MUSCULOSKELETAL: As mentioned earlier. HEMATOLOGY: As mentioned earlier. ENDOCRINE: No diabetes or hypothyroidism. CONSTITUTIONAL: As mentioned earlier. DERMATOLOGY: Negative. PSYCHIATRY: As mentioned earlier. PHYSICAL EXAMINATION: Alert and oriented x3. Pulse 65, blood pressure is 145/60, respiration 18, temperature 96.8 pulse ox 100% on 3 L. HEENT: Conjunctivae normal. Oral mucosa moist. Neck is no jugular venous distention. No lymph node enlargement. CARDIOVASCULAR SYSTEM: S1, S2, no S3, no S4. RESPIRATORY: Breath sounds diminished in the bases, bilateral scattered rhonchi. Breath sounds are markedly diminished on the right side. ABDOMEN: Soft, nontender. No mass palpable. LEGS: Minimal edema. NERVOUS SYSTEM: Higher functions as mentioned, moves all 4 limbs, no focal motor deficits. LYMPHATICS: No lymph node enlargement in the neck or axillae. SKIN: No ulcer, rash or bleeding. LABS: WBC 6, hemoglobin is 10.5, sodium 130, potassium 5, troponin 0.084. ASSESSMENT: 1. Shortness of breath with the right pleural effusion of undetermined etiology. 2. Troponin 0.084, indeterminate. 3. Hyponatremia. 4. Mild hyperkalemia. 5. History of chronic obstructive pulmonary disease. 6. History of congestive heart failure. 7. History of deep venous thrombosis. 8. Gastroesophageal reflux disease. 9. Hypertension. 10.Hyperlipidemia. 11.History of myocardial infarction. 12.History pneumonia. 13.History of coronary artery disease. 14.History of atrial fibrillation. 15.Chronic hypoxic respiratory failure on home O2 two L. 16.History of recurrent right pleural effusion. 17.History of cardiomyopathy. 18.History of cardiac valve replacement. 19.History of coronary artery disease, stent, aortic valve replacement. 20.Anxiety. 21.Remote history of nicotine dependence. RECOMMENDATION: This is an 82-year-old gentleman who presented with multiple complex medical issues, will monitor the patient closely, continue with the current management and symptomatic treatment. Will initiate the home medications including Lasix and consult Cardiology and Pulmonology. Resume the home medications. The prognosis guarded because of multiple complex medical issues. Further recommendations to follow. MMODL / IJN: [id number] /
--- NOTE | 2018-04-01 13:00 | P.CRDCN ---
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 Richmond patient did have an echocardiogram with Doppler study performed in February which revealed an ejection fraction of 50-55%, LAD was severely dilated, mild regurg of the bioprosthetic aortic valve, mild to moderate mitral regurg, moderate pulmonary hypertension, mild tricuspid regurg. a in the office. Patient was recently in the hospital last month, at which time he did undergo a right sided thoracentesis by Dr. Cm. This was actually performed on March 13. Cytology of pleural fluid did not reveal any malignant cells. It showed mesothelial cells, macrophages admixed inflammatory cells. According to the patient, he states that he felt significantly better after his thoracentesis, but shortly thereafter started to become short of breath. His shortness of breath continued to worsen, he states that when he exerts himself even minimally he gets extremely short of breath. Even taking a shower, patient can hardly breathe. He denies any chest discomfort, no palpitations. When he is at rest, he states his breathing seems to be fine. Chest x-ray performed on this admission showed congestive heart failure with right pleural effusion, pleural fluid has increased compared to the last exam. EKG performed on this admission showed a ventricular paced rhythm with nonspecific ST-T wave changes. Subsequent EKG again showed a ventricular paced rhythm. Blood pressure on arrival 144/60 with a heart rate in the 60s, temperature 96.8. 100% on 3 L of oxygen. Laboratory data was reviewed, white blood cell count 6.0, hemoglobin 10.5, platelet count 193. INR 1.7, sodium 135, potassium 5.2, BUN 36, creatinine 1.2. BNP level 2420 and troponin 0.084. The patient did undergo a CAT scan of the chest this morning, results are yet pending. At the time of my examination he is sitting up in the chair at bedside, denies any overt shortness of breath, but states if he walks even to the bathroom he becomes extremely short of breath. Patient did have an echocardiogram with Doppler study performed in February which revealed an ejection fraction of 50-55%. LA is severely dilated, mild to moderate mitral regurg, mild tricuspid regurg, moderate pulmonary hypertension. Past Medical History Past Medical History: Atrial Fibrillation, Coronary Artery Disease (CAD), Cancer , Chest Pain / Angina, Heart Failure, COPD, Deep Vein Thrombosis (DVT), GERD/ Reflux, Hyperlipidemia, Hypertension, Myocardial Infarction ([place]), Pneumonia, Prostate Disorder Additional Past Medical History / Comment(s): Home O2 at 2L/NC lately ATC, recurrent R pleural effusions, thoracic adenopathy, pneumonias, pneumonia with sepsis, bronchitis, bilateral lower leg edema/redness L lower leg, L leg DVT in 2006, chronic L leg pain/ neurological damage, BPH, prostrate cancer with surgery, constipation, recently had 4 teeth extracted, Last Myocardial Infarction Date:: 2005 History of Any Multi-Drug Resistant Organisms: None Reported Past Surgical History: Appendectomy, Cardiac Valve Replacement, Cholecystectomy , Heart Catheterization, Heart Catheterization With Stent, Hernia Repair, Pacemaker, Prostate Surgery Additional Past Surgical History / Comment(s): 2016 aortic valve replacement, bilateral cataracts removal, prostatectomy, penile implant x2, R sided thoracentesises, bilateral inguinal hernia repair, L leg dvt surgically removed , colonoscopies. Past Anesthesia/Blood Transfusion Reactions: Previous Problems w/ Anesthesia Additional Past Anesthesia/Blood Transfusion Reaction / Comment(s): "one time BP dropped too low" Date of Last Stent Placement:: 2005 Type of Cardiac Device: Permanent Pacemaker Device Placement Date:: 2004? Past Psychological History: Anxiety Smoking Status: Former smoker Past Alcohol Use History: None Reported Past Drug Use History: None Reported - Past Family History Brother(s) Family Medical History: Cancer Sister(s) Family Medical History: Cancer Father Family Medical History: Cancer Additional Family Medical History / Comment(s): Father had prostrate cancer. He had CAD/CABG. He at the age of 78yrs during coronary angioplasty. Mother Family Medical History: Myocardial Infarction ([place]) Additional Family Medical History / Comment(s): Mother had a [place] at the age of 35yrs. She had CABG. She lived to be 93 yrs old. Medications and Allergies Home Medications Medication Instructions Recorded Confirmed Type Carvedilol 25 mg PO DAILY 06/19/15 04/01/18 History Ferrous Sulfate [Iron (65 MG 325 mg PO DAILY 06/19/15 04/01/18 History Elemental)] oxyCODONE HCL 15 mg PO BID PRN 06/19/15 04/01/18 History LORazepam [Ativan] 0.5 mg PO QID PRN 07/28/16 04/01/18 History Ubidecarenone [Co Q-10] 200 mg PO DAILY 07/28/16 04/01/18 History Lovastatin [Mevacor] 20 mg PO HS 11/20/17 04/01/18 History Warfarin [Coumadin] 2 mg PO ONCE 11/20/17 04/01/18 History Warfarin [Coumadin] 5 mg PO HS 11/20/17 04/01/18 History traZODone HCL 100 mg PO HS 11/20/17 04/01/18 History Furosemide [Lasix] 40 mg PO BID #60 tablet 11/21/17 04/01/18 Rx Polyethylene Glycol 3350 [Miralax] 17 gm PO DAILY [facility].pack 02/07/18 04/01/18 Rx Lisinopril [Zestril] 2.5 mg PO DAILY 03/10/18 04/01/18 History Promethazine HCl 12.5 mg PO BID PRN 03/10/18 04/01/18 History Morphine Sulfate [Ms Contin] 60 mg PO Q12HR 04/01/18 04/01/18 History Multivitamins, Thera [Multivitamin 1 tab PO DAILY 04/01/18 04/01/18 History (formulary)] Pantoprazole [Protonix] 40 mg PO DAILY 04/01/18 04/01/18 History Sucralfate [Carafate] 1 gm PO BID 04/01/18 04/01/18 History Warfarin Sodium 2 mg PO HS 04/01/18 04/01/18 History Allergies Allergy/AdvReac Type Severity Reaction Status Date / Time No Known Allergies Allergy Verified 04/01/18 07:35 Physical Exam Vitals: Vital Signs Temp Pulse Pulse Resp BP BP Pulse Ox 04/01/18 09:46 96.8 F L 65 18 145/67 100 04/01/18 07:38 98.1 F 60 18 153/60 93 L 08/09/18 06:42 60 19 153/70 99 04/01/18 06:18 99 16 141/65 99 04/01/18 05:18 60 16 04/01/18 04:18 16 100 04/01/18 04:15 98.2 F 61 18 145/77 92 L Intake and Output 03/31/18 04/01/18 04/01/18 22:59 06:59 14:59 Other: Weight 77.111 kg 77.111 kg PHYSICAL EXAMINATION: GENERAL: 82-year-old gentleman in no acute distress at the time of my examination HEENT: Head is atraumatic, normocephalic. Pupils equal, round. Sclera anicteric. Conjunctiva are clear. Mucous membranes of the mouth are moist. Neck is supple. There is elevated jugular venous pressure. No carotid bruit is heard. HEART EXAMINATION: S1 and S2 systolic murmur is heard. CHEST EXAMINATION: Lungs reveal diminished air entry to the right posteriorly 1 12:[address] ABDOMEN: Soft, nontender. Bowel sounds are heard. No organomegaly noted. EXTREMITIES: 2+ peripheral pulses with no evidence of peripheral edema and no calf tenderness noted. NEUROLOGIC patient is awake, alert and oriented X3. . Results 04/01/18 05:33 04/01/18 05:33 Cardiac Enzymes 04/01/18 04/01/18 Range/Units 05:33 05:33 AST 41 (17-59) U/L CK-MB (CK-2) 1.0 (0.0-2.4) ng/mL Troponin I 0.084 H* (0.000-0.034) ng/mL Coagulation 04/01/18 Range/Units 05:33 PT 15.4 H (9.0-12.0) sec APTT 27.9 (22.0-30.0) sec CBC 04/01/18 Range/Units 05:33 WBC 6.0 (3.8-10.6) k/uL RBC 3.24 L (4.30-5.90) m/uL Hgb 10.5 L (13.0-17.5) gm/dL Hct 32.1 L (39.0-53.0) % Plt Count 193 (150-450) k/uL Comprehensive Metabolic Panel 04/01/18 Range/Units 05:33 Sodium 135 L (137-145) mmol/L Potassium 5.2 H (3.5-5.1) mmol/L Chloride 99 (98-107) mmol/L Carbon Dioxide 28 (22-30) mmol/L BUN 36 H (9-20) mg/dL Creatinine 1.24 (0.66-1.25) mg/dL Glucose 120 H (74-99) mg/dL Calcium 8.6 (8.4-10.2) mg/dL AST 41 (17-59) U/L ALT 31 (21-72) U/L Alkaline Phosphatase 86 (38-126) U/L Total Protein 6.7 (6.3-8.2) g/dL Albumin 3.7 (3.5-5.0) g/dL Current Medications Generic Name Dose Route Start Last Admin Trade Name Freq PRN Reason Stop Dose Admin Aspirin 325 mg 04/02/18 09:00 Aspirin PO DAILY [facility] Atorvastatin Calcium 10 mg 04/01/18 21:00 Lipitor PO HS [facility] Carvedilol 25 mg 04/02/18 09:00 Coreg PO DAILY [facility] Ferrous Sulfate 325 mg 04/02/18 09:00 Feosol PO DAILY [facility] Furosemide 40 mg 04/01/18 16:00 Lasix PO BID@0900,1600 [facility] Lisinopril 2.5 mg 04/02/18 09:00 Zestril PO DAILY [facility] Lorazepam 0.5 mg 04/01/18 11:25 Ativan PO QID PRN Anxiety Miscellaneous Information 1 each 04/01/18 11:26 Rx Info: Iv Contrast Was Given MISCELLANE 04/03/18 11:26 DAILY PRN Per Protocol Morphine Sulfate 60 mg 04/01/18 21:00 Ms Contin PO Q12HR [facility] Multivitamins 1 each 04/02/18 12:00 Theragran PO DAILY@1200 [facility] Naloxone HCl 0.2 mg 04/01/18 06:33 Narcan IV Q2M PRN Opioid Reversal Nitroglycerin 0.4 mg 04/01/18 06:34 Nitrostat SUBLINGUAL Q5M PRN Chest Pain Oxycodone HCl 15 mg 04/01/18 11:36 Oxyir PO BID PRN Moderate Pain Pantoprazole Sodium 40 mg 04/02/18 07:30 Protonix PO AC-BRKFST [facility] Polyethylene Glycol 17 gm 04/02/18 09:00 Miralax PO DAILY [facility] Promethazine HCl 12.5 mg 04/01/18 11:25 Phenergan PO BID PRN Nausea Sucralfate 1 gm 04/01/18 21:00 Carafate PO BID [facility] Trazodone HCl 100 mg 04/01/18 21:00 Desyrel PO HS [facility] Intake and Output 03/31/18 04/01/18 04/01/18 22:59 06:59 14:59 Other: Weight 77.111 kg 77.111 kg Patient Weight 04/02/18 06:59 Weight 77.111 kg 04/01/18 05:33 04/01/18 05:33 EKG Interpretations (text) EKG shows ventricular paced rhythm. Assessment and Plan Plan: Assessment and plan #1 shortness of breath secondary to recurrent right sided pleural effusion. Patient recently underwent a right-sided thoracentesis last month, Non malignant pathology on pleural fluid. #2 history of bioprosthetic aortic valve replacement and tricuspid valve repair #3 known history of coronary artery disease #4 paroxysmal atrial fibrillation, on long-term anticoagulation with Coumadin #5 history of prior pacemaker implantation for sick sinus syndrome #6 hypertension Plan Patient did undergo CAT scan of the chest today results are yet pending. Pulmonary has been consulted to see the patient for possible repeat thoracentesis. Continue current medications. Further recommendations to follow. DNP note has been reviewed, I agree with a documented findings and plan of care. Patient was seen and examined.
[2018-04-01 13:29] LABS: Creatine Kinase MB 0.9 ng/mL (0.0-2.4)
[2018-04-01 13:31] LABS: Troponin I 0.071 ng/mL (0.000-0.034)
--- NOTE | 2018-04-01 13:38 | P.CNPUL ---
<Margarita Soto - Last Filed: 04/01/18 13:12> History of Present Illness Consult date: 04/01/18 Requesting physician: Drew Nevarez Reason for consult: dyspnea, abnormal CXR/CT Chief complaint: Shortness of breath, cough, congestion History of present illness: This is a very pleasant 82-year-old gentleman who follows with Dr. Lieberman as his primary care physician. He has a history of coronary artery disease, aortic valve stenosis with previous bypass surgery and valve replacement, chronic atrial fibrillation status post permanent pacemaker implantation maintained on warfarin in the outpatient setting, left lower extremity DVT, diastolic congestive heart failure, moderate pulmonary hypertension. The patient also has a history of recurrent pleural effusions dating back to June 2017 and has had subsequent multiple recurrent effusions and thoracentesis. Fluid which was transudative and negative for malignancy. His recent thoracentesis done in the inpatient setting on 03/13/2018 with 800 ML's of serosanguineous fluid removed. The patient also has a history of mediastinal adenopathy with precarinal lymph node measuring 1.8 cm. He also has chronic obstructive pulmonary disease with an FEV1 value 73% of predicted. He follows in our office in the outpatient setting. He was scheduled for a PET scan on 04/03/2018. He presented here again last evening with complaints of increasing shortness of breath, dry nonproductive cough and dyspnea on minimal exertion. He also has some level of anxiety. Chest x-ray reveals evidence of congestive heart failure with recurrent right pleural effusion. White count 6.0. Hemoglobin 10.5. INR 1.7. Creatinine 1.24. Troponin 0.084. ProBNP 2420. He is seen today in consultation on the selective care unit. He is currently sitting up in a chair at the bedside. He is awake and alert in no acute distress. He is maintaining O2 saturations up to 100% on 3 L/m per nasal cannula. He's been afebrile. Hemodynamically stable. Review of Systems Constitutional: Reports fatigue, Reports poor appetite Eyes: denies blurred vision, denies decreased vision Ears: bilateral: decreased hearing Ears, nose, mouth and throat: Reports neck fullness/pressure (Slightly more fullness on the left compared to the right) Cardiovascular: Reports dyspnea on exertion, Reports leg edema, Reports shortness of breath Respiratory: Reports congestion, Reports dyspnea, Reports home oxygen Gastrointestinal: Denies abdominal pain, Denies diarrhea, Denies nausea, Denies vomiting Genitourinary: Reports as per HPI Musculoskeletal: Reports low back pain Musculoskeletal: bilateral: foot swelling Integumentary: Reports color changes Neurological: Denies numbness, Denies weakness Psychiatric: Reports anxiety Endocrine: Denies fatigue, Denies weight change Hematologic/Lymphatic: Reports lymphadenopathy Allergic/Immunologic: Reports as per HPI Past Medical History Past Medical History: Atrial Fibrillation, Coronary Artery Disease (CAD), Cancer , Chest Pain / Angina, Heart Failure, COPD, Deep Vein Thrombosis (DVT), GERD/ Reflux, Hyperlipidemia, Hypertension, Myocardial Infarction ([place]), Pneumonia, Prostate Disorder Additional Past Medical History / Comment(s): Home O2 at 2L/NC lately ATC, recurrent R pleural effusions, thoracic adenopathy, pneumonias, pneumonia with sepsis, bronchitis, bilateral lower leg edema/redness L lower leg, L leg DVT in 2006, chronic L leg pain/ neurological damage, BPH, prostrate cancer with surgery, constipation, recently had 4 teeth extracted, Last Myocardial Infarction Date:: 2005 History of Any Multi-Drug Resistant Organisms: None Reported Past Surgical History: Appendectomy, Cardiac Valve Replacement, Cholecystectomy , Heart Catheterization, Heart Catheterization With Stent, Hernia Repair, Pacemaker, Prostate Surgery Additional Past Surgical History / Comment(s): 2016 aortic valve replacement, bilateral cataracts removal, prostatectomy, penile implant x2, R sided thoracentesises, bilateral inguinal hernia repair, L leg dvt surgically removed , colonoscopies. Past Anesthesia/Blood Transfusion Reactions: Previous Problems w/ Anesthesia Additional Past Anesthesia/Blood Transfusion Reaction / Comment(s): "one time BP dropped too low" Date of Last Stent Placement:: 2005 Type of Cardiac Device: Permanent Pacemaker Device Placement Date:: 2004? Past Psychological History: Anxiety Smoking Status: Former smoker Past Alcohol Use History: None Reported Past Drug Use History: None Reported - Past Family History Brother(s) Family Medical History: Cancer Sister(s) Family Medical History: Cancer Father Family Medical History: Cancer Additional Family Medical History / Comment(s): Father had prostrate cancer. He had CAD/CABG. He at the age of 78yrs during coronary angioplasty. Mother Family Medical History: Myocardial Infarction ([place]) Additional Family Medical History / Comment(s): Mother had a [place] at the age of 35yrs. She had CABG. She lived to be 93 yrs old. Medications and Allergies Home Medications Medication Instructions Recorded Confirmed Type Carvedilol 25 mg PO DAILY 06/19/15 04/01/18 History Ferrous Sulfate [Iron (65 MG 325 mg PO DAILY 06/19/15 04/01/18 History Elemental)] oxyCODONE HCL 15 mg PO BID PRN 06/19/15 04/01/18 History LORazepam [Ativan] 0.5 mg PO QID PRN 07/28/16 04/01/18 History Ubidecarenone [Co Q-10] 200 mg PO DAILY 07/28/16 04/01/18 History Lovastatin [Mevacor] 20 mg PO HS 11/20/17 04/01/18 History Warfarin [Coumadin] 2 mg PO ONCE 11/20/17 04/01/18 History Warfarin [Coumadin] 5 mg PO HS 11/20/17 04/01/18 History traZODone HCL 100 mg PO HS 11/20/17 04/01/18 History Furosemide [Lasix] 40 mg PO BID #60 tablet 11/21/17 04/01/18 Rx Polyethylene Glycol 3350 [Miralax] 17 gm PO DAILY powd.pack 02/07/18 04/01/18 Rx Lisinopril [Zestril] 2.5 mg PO DAILY 03/10/18 04/01/18 History Promethazine HCl 12.5 mg PO BID PRN 03/10/18 04/01/18 History Morphine Sulfate [Ms Contin] 60 mg PO Q12HR 04/01/18 04/01/18 History Multivitamins, Thera [Multivitamin 1 tab PO DAILY 04/01/18 04/01/18 History (formulary)] Pantoprazole [Protonix] 40 mg PO DAILY 04/01/18 04/01/18 History Sucralfate [Carafate] 1 gm PO BID 04/01/18 04/01/18 History Warfarin Sodium 2 mg PO HS 04/01/18 04/01/18 History Allergies Allergy/AdvReac Type Severity Reaction Status Date / Time No Known Allergies Allergy Verified 04/01/18 07:35 Physical Exam Vitals: Vital Signs Temp Pulse Pulse Resp BP BP Pulse Ox 04/01/18 09:46 96.8 F L 65 18 145/67 100 04/01/18 07:38 98.1 F 60 18 153/60 93 L 04/01/18 06:42 60 19 153/70 99 04/01/18 06:18 99 16 141/65 99 04/01/18 05:18 60 16 04/01/18 04:18 16 100 04/01/18 04:15 98.2 F 61 18 145/77 92 L Intake and Output 03/31/18 04/01/18 04/01/18 22:59 06:59 14:59 Other: Weight 77.111 kg 77.111 kg - Constitutional General appearance: average body habitus - EENT Eyes: EOMI, PERRLA ENT: hard of hearing Ears: bilateral: normal - Neck Neck: lymphadenopathy (Barely palpable left lymphadenopathy) Carotids: bilateral: upstroke normal Thyroid: bilateral: normal size - Respiratory Respiratory: right: dullness, rales - Cardiovascular Rhythm: regular Abnormal Heart Sounds: diastolic murmur - Gastrointestinal General gastrointestinal: normal bowel sounds - Integumentary Integumentary: normal - Neurologic Neurologic: CNII-XII intact - Musculoskeletal Musculoskeletal: generalized weakness - Psychiatric Psychiatric: A&O x's 3, appropriate affect, intact judgment & insight Results - Laboratory Findings CBC and BMP: 04/01/18 05:33 04/01/18 05:33 PT/INR, D-dimer PT 15.4 sec (9.0-12.0) H 04/01/18 05:33 INR 1.7 (<1.2) H 04/01/18 05:33 Abnormal lab findings: Abnormal Labs 04/01/18 04/01/18 04/01/18 05:33 05:33 05:33 RBC 3.24 L Hgb 10.5 L Hct 32.1 L PT 15.4 H INR 1.7 H Sodium Potassium BUN Glucose Total Creatine Kinase 28 L Troponin I 0.084 H* 04/01/18 05:33 RBC Hgb Hct PT INR Sodium 135 L Potassium 5.2 H BUN 36 H Glucose 120 H Total Creatine Kinase Troponin I - Diagnostic Findings Chest x-ray: image reviewed Assessment and Plan Assessment: Impression: #1 Acute on chronic hypoxic respiratory failure secondary to an acute exacerbation of diastolic congestive heart failure, recurrent right-sided pleural effusion and multiple previous thoracentesis most recently 03/13/2018 with 800 ML serosanguineous fluid removed. Negative for malignancy. Transudative Total protein 2.3. LDH 124. #2 Acute on chronic diastolic congestive heart failure. Preserved left ventricular systolic function with ejection fraction 50-55%. #3 History of stable, loculated right pleural effusion. #4 Pericarinal lymph node measuring 2.5 x 1.7 cm, abnormal anterior superior mediastinal lymph node measuring 1.8 x 1.4 cm. Being followed in the outpatient setting. The patient was scheduled for a PET scan on 04/03/2018. #5 Chronic atrial fibrillation, anticoagulated with warfarin. #6 Cardiac arrhythmia requiring permanent pacemaker implantation. #7 Remote history of DVT in 2006. #8 Hypertension. #9 Hyperlipidemia. #10 Coronary artery disease status post coronary artery bypass grafting. #11 Aortic valve stenosis status post aortic valve replacement utilizing a bioprosthetic aortic valve. #12 History of prostate cancer. #13 Chronic pain syndrome. #14 Anxiety/depression. Plan: The patient was seen and evaluated by Dr. Ovalle. Chest x-ray, previous CAT scans, fluid analysis from previous thoracentesis and labs all reviewed. He may need a repeat thoracentesis or possibly a Pleurx catheter insertion. As the patient was admitted prior to receiving a PET scan we'll go ahead and repeat a computed tomography scan of the chest and possibly perform a bronchoscopy with biopsy of the mediastinal adenopathy. We will hold the patient's warfarin for now. Continue his other home medications. We'll continue to follow and make further recommendations based on his clinical status. I, the cosigning physician, performed a history & physical examination of the patient. Lungs sounds with basilar crackles more so on the right lung, diminished. Maintaining good O2 saturations in the 90s on 3 L/m per nasal cannula. I discussed the assessment and plan of care with my nurse practitioner , Margarita Soto. I attest to the above consultation as dictated by her. Time with Patient: Greater than 30 <Jae Ovalle - Last Filed: 04/01/18 13:50> Physical Exam Vitals: Vital Signs Temp Pulse Pulse Resp BP BP Pulse Ox 04/01/18 12:00 61 18 138/69 100 04/01/18 09:46 96.8 F L 65 18 145/67 100 04/01/18 07:38 98.1 F 60 18 153/60 93 L 04/01/18 06:42 60 19 153/70 99 04/01/18 06:18 99 16 141/65 99 04/01/18 05:18 60 16 04/01/18 04:18 16 100 04/01/18 04:15 98.2 F 61 18 145/77 92 L Intake and Output 03/31/18 04/01/18 04/01/18 22:59 06:59 14:59 Other: Weight 77.111 kg 77.111 kg Results - Laboratory Findings CBC and BMP: 04/01/18 05:33 04/01/18 05:33 PT/INR, D-dimer PT 15.4 sec (9.0-12.0) H 04/01/18 05:33 INR 1.7 (<1.2) H 04/01/18 05:33 Abnormal lab findings: Abnormal Labs 04/01/18 04/01/18 04/01/18 05:33 05:33 05:33 RBC 3.24 L Hgb 10.5 L Hct 32.1 L PT 15.4 H INR 1.7 H Sodium Potassium BUN Glucose Total Creatine Kinase 28 L Troponin I 0.084 H* 04/01/18 04/01/18 05:33 12:14 RBC Hgb Hct PT INR Sodium 135 L Potassium 5.2 H BUN 36 H Glucose 120 H Total Creatine Kinase 30 L Troponin I 0.071 H* Assessment and Plan Assessment: This is a joint evaluations was done along with the nurse practitioner, Margarita Collins The patient has recurrent right-sided pleural effusion. The patient has had previous thoracentesis and the fluid has become a recurrent problem. The fluid itself is somewhat loculated and not free-flowing. At the same time, the patient has some compressive atelectasis of the right lung base. I repeated the CAT scan of the chest and there is evidence of mediastinal adenopathy which is persistent and the precarinal lymph node is measuring 1.8 cm in size and there is also evidence of a left supraclavicular lymphadenopathy in addition to some scattered mediastinal lymph nodes. The patient overall has similar findings. No major interval change compared to the previous CAT scan from October 2017. Discussed the findings with the patient that I think it's reasonable to consider sampling of the precarinal lymph node which is measuring up to 2 cm in size. Also it's reasonable to consider a Pleurx catheter if the lymph node itself comes back nondiagnostic. For this reason, we'll keep the patient off anticoagulation. We'll keep him nothing by mouth after midnight. Possible bronchoscopy in a.m. alternatively, an outpatient PET scan can be obtained to investigate the lymph nodes and manage the pleural fluid accordingly. All his options will be given to the patient and will, with a final decision in a.m.
[2018-04-01] MEDS: FUROSEMIDE 40 MG TAB PO SCH (15:44)
[2018-04-01 18:30] LABS: Creatine Kinase MB 0.8 ng/mL (0.0-2.4)
[2018-04-01 18:32] LABS: Troponin I 0.072 ng/mL (0.000-0.034)
[2018-04-01] MEDS: ATORVASTATIN 10 MG TAB PO SCH (20:58)
[2018-04-01] MEDS: LORazepam 0.5 MG TAB PO PRN (20:58)
[2018-04-01] MEDS: traZODone HCL 50 MG TAB PO SCH (20:58)
[2018-04-01] MEDS: SUCRALFATE 1 GM TAB PO SCH (20:58)
[2018-04-01] MEDS ORDERED: LISINOPRIL 2.5 MG TAB PO STA (22:20)
[2018-04-01] MEDS: MORPHINE SULFATE ER 60 MG TABLET PO SCH (23:07)
[2018-04-02 06:41] LABS: Appearance,Urine Clear (Clear); Bilirubin,Urine Negative (Negative); Blood,Urine Negative (Negative); Color,Urine Light Yellow; Glucose,Urine (UA) Negative (Negative); Ketones,Urine Negative (Negative); Leukocyte Esterase,Urine Negative (Negative); Nitrite,Urine Negative (Negative); Protein,Urine Negative (Negative); Specific Gravity,Urine 1.013 (1.001-1.035); Urobilinogen,Urine <2.0 mg/dL (<2.0)
[2018-04-02 06:44] LABS: Basophils % (A) 0 %; Eosinophils # (A) 0.2 k/uL (0-0.7); Eosinophils % (A) 3 %; HCT 30.8 % (39.0-53.0); HGB 10.3 gm/dL (13.0-17.5); Lymphocytes # (A) 1.2 k/uL (1.0-4.8); Lymphocytes % (A) 20 %; MCH 33.4 pg (25.0-35.0); MCHC 33.4 g/dL (31.0-37.0); MCV 100.1 fL (80.0-100.0); Macrocytosis Slight; Mean Platelet Volume 6.5; Monocytes # (A) 0.4 k/uL (0-1.0); Monocytes % (A) 7 %; Neutrophils # (A) 3.9 k/uL (1.3-7.7); Neutrophils % (A) 67 %; Platelet Count 192 k/uL (150-450); RBC 3.08 m/uL (4.30-5.90); RDW 14.1 % (11.5-15.5); WBC 5.8 k/uL (3.8-10.6)
[2018-04-02 06:55] LABS: INR 1.5 (<1.2); Prothrombin Time 14.2 sec (9.0-12.0)
[2018-04-02 07:02] LABS: Calcium 8.6 mg/dL (8.4-10.2)
[2018-04-02] MEDS: PANTOPRAZOLE 40 MG TABLET PO SCH (08:52)
[2018-04-02] MEDS: SUCRALFATE 1 GM TAB PO SCH ×2 (08:53→20:23)
[2018-04-02] MEDS: CARVEDILOL 12.5 MG TAB PO SCH (08:53)
[2018-04-02] MEDS: LISINOPRIL 2.5 MG TAB PO SCH (08:53)
[2018-04-02] MEDS: FUROSEMIDE 40 MG TAB PO SCH ×2 (08:53→17:08)
[2018-04-02] MEDS: FERROUS SULFATE 325 MG TAB PO SCH (08:53)
[2018-04-02] MEDS ORDERED: NON-FORMULARY DRUG (Ubidecarenone [Co Q-10] 200 MG) PO SCH (09:00)
[2018-04-02] MEDS: MORPHINE SULFATE ER 60 MG TABLET PO SCH ×2 (09:00→21:22)
[2018-04-02] MEDS: LORazepam 0.5 MG TAB PO PRN ×3 (10:44→20:23)
[2018-04-02] MEDS ORDERED: GLYCOPYRROLATE 0.2 MG/ML 2 ML VIAL ONE (12:00)
[2018-04-02] MEDS ORDERED: PROPOFOL 10 MG/ML 20 ML VIAL IV ONE (12:00)
[2018-04-02] MEDS ORDERED: ePHEDrine SULFATE/0.9% NACL/PF 50 MG/5 ML SYRINGE IV ONE (12:00)
[2018-04-02] MEDS ORDERED: KETAMINE 10 MG/ML 20 ML VIAL ONE (12:00)
[2018-04-02] MEDS ORDERED: IV FLUID CONTINUATION 1,000 ML IV ONE (12:03)
[2018-04-02] MEDS ORDERED: LIDOCAINE 2% INJ 20 MG/ML INTRATRACH ONE (12:08)
--- NOTE | 2018-04-02 12:31 | P.PCN ---
Date of Procedure: 04/02/18 Preoperative Diagnosis: Mediastinal lymphadenopathy Postoperative Diagnosis: Mediastinal lymphadenopathy Procedure(s) Performed: Flexible bronchoscopy, airway inspection, transbronchial needle aspirate of precarinal lymph node Anesthesia: MAC Surgeon: Jae Ovalle Senior Core Java Developer #1: Margarita Soto Estimated Blood Loss (ml): 0 Pathology: other Condition: stable Disposition: floor Operative Findings: This procedure was done under conscious sedation. The procedure was done in the bronchoscopy suite. The patient was sedated by SUPPLY CHAIN DEVELOPMENT MANAGER and he was given a combination of the prevent and CAD a mean. After achieving adequate sedation, the flexible bronchoscope was inserted to the left nostril was advanced into the upper airway. Examination of the posterior oropharynx, larynx, epiglottis, vallecula, reflux and vocal cords was within normal limits. All of the upper airway structures were within normal and there were no abnormalities noted. A total of 2 mL of 1% lidocaine was applied to the vocal cords and following that the bronchoscope was advanced upper trachea and examination of the tracheal bronchial tree was done. Examination trachea was within normal limits. Examination of the bilateral mainstem bronchi was within normal limits. Right upper lobe was patent and was trifurcated. The bronchus intermedius was patent. The various segments of the right lower lobe including the medial basilar, anterior lateral and posterior and superior and the medial segment of the right middle lobe was somewhat atelectatic and extrinsically compressed. There was no endobronchial lesions or tumors identified. No significant rest or secretions identified. Examination left side was within normal limits including the left upper lobe bronchus and the left lower lobe bronchus along with various segments and subsegments. Therapeutic airway suctioning was done. Following that the bronchoscope was moved to the trachea and using a 19-gauge cytology and histology needl aspirate needle aspirate of pretracheal lymph node was obtained. A total of 5 passes was taken and the samples were sent for histologic examination and flow cytometry. No bleeding was encountered. Therapeutic airway suctioning was done and following that the bronchoscope was removed and the patient was transferred recovery in stable condition. We'll be awaiting the results of the pathology. May likely need an outpatient PET scan.
--- NOTE | 2018-04-02 12:35 | P.PN ---
Subjective Progress Note Date: 04/02/18 This is a very pleasant 82-year-old gentleman who follows with Dr. Lieberman as his primary care physician. He has a history of coronary artery disease, aortic valve stenosis with previous bypass surgery and valve replacement, chronic atrial fibrillation status post permanent pacemaker implantation maintained on warfarin in the outpatient setting, left lower extremity DVT, diastolic congestive heart failure, moderate pulmonary hypertension. The patient also has a history of recurrent pleural effusions dating back to June 2017 and has had subsequent multiple recurrent effusions and thoracentesis. Fluid which was transudative and negative for malignancy. His recent thoracentesis done in the inpatient setting on 03/13/2018 with 800 ML's of serosanguineous fluid removed. The patient also has a history of mediastinal adenopathy with precarinal lymph node measuring 1.8 cm. He also has chronic obstructive pulmonary disease with an FEV1 value 73% of predicted. He follows in our office in the outpatient setting. He was scheduled for a PET scan on 04/03/2018. He presented here again last evening with complaints of increasing shortness of breath, dry nonproductive cough and dyspnea on minimal exertion. He also has some level of anxiety. Chest x-ray reveals evidence of congestive heart failure with recurrent right pleural effusion. White count 6.0. Hemoglobin 10.5. INR 1.7. Creatinine 1.24. Troponin 0.084. ProBNP 2420. He is seen today in consultation on the selective care unit. He is currently sitting up in a chair at the bedside. He is awake and alert in no acute distress. He is maintaining O2 saturations up to 100% on 3 L/m per nasal cannula. He's been afebrile. Hemodynamically stable. On 04/02/2008 and I'm seeing this patient for a follow-up. He is stable. No respiratory difficulties. He has no significant cough or sputum production. He is able to speak in full sentences. A repeat CAT scan of the chest was done and it showed mediastinal lymphadenopathy and there was a 1.8 cm precarinal lymph node that was persistent and was seen on previous CAT scan of the chest. There was also a small to moderate-sized right-sided pleural effusion that was somewhat loculated. As such, we discussed the various diagnostic options. We decided to proceed with a bronchoscopy and transbronchial needle aspirate of the precarinal lymph node to establish this diagnosis. One concern is malignancy whether to carcinoma or lymphoma. As for the recurrent right-sided pleural effusion, we are considering a Pleurx catheter at a later stage. No fever. No chills. No other complaints otherwise for now. The procedure were expected to the patient at length. He was agreeable. INR is at 1.5. Objective - Vital Signs Vital signs: Vital Signs Temp 97 F L 04/02/18 08:00 Pulse 60 04/02/18 08:00 Resp 17 04/02/18 08:00 BP 156/60 04/02/18 08:00 Pulse Ox 100 04/02/18 08:00 Intake & Output 04/01/18 04/02/18 04/02/18 18:59 06:59 18:59 Intake Total 240 Balance 240 Weight 77.111 kg 79 kg Intake: Oral 240 Other: Voiding Method Toilet Urinal # Voids 1 2 - Exam The patient appeared well nourished and normally developed. Vital signs as documented. Head exam is unremarkable. No scleral icterus or corneal arcus noted. Neck is without jugular venous distension, thyromegaly, or carotid bruits. Carotid upstrokes are brisk bilaterally. Lungs are diminished breath sounds in the right lung base along with dullness to percussion. Cardiac exam reveals the PMI to be normally sized and situated. Rhythm is regular. First and second heart sounds normal. No murmurs, rubs or gallops. Abdominal exam reveals normal bowel sounds, no masses, no organomegaly and no aortic enlargement. Extremities are nonedematous and both femoral and pedal pulses are normal.Examination of the skin revealed no evidence of significant rashes, suspicious appearing nevi or other concerning lesions. Neurologically the patient is awake and alert and there is no focal neurological deficits - Labs CBC & Chem 7: 04/02/18 06:16 04/02/18 06:16 Labs: Abnormal Lab Results - Last 24 Hours (Table) 04/01/18 04/01/18 04/02/18 Range/Units 12:14 17:29 06:16 RBC (4.30-5.90) m/uL Hgb (13.0-17.5) gm/dL Hct (39.0-53.0) % MCV (80.0-100.0) fL PT (9.0-12.0) sec INR (<1.2) Sodium 135 L (137-145) mmol/L BUN 33 H (9-20) mg/dL Total Creatine Kinase 30 L 28 L (55-170) U/L Troponin I 0.071 H* 0.072 H* (0.000-0.034) ng/mL 04/02/18 04/02/18 Range/Units 06:16 06:16 RBC 3.08 L (4.30-5.90) m/uL Hgb 10.3 L (13.0-17.5) gm/dL Hct 30.8 L (39.0-53.0) % MCV 100.1 H (80.0-100.0) fL PT 14.2 H (9.0-12.0) sec INR 1.5 H (<1.2) Sodium (137-145) mmol/L BUN (9-20) mg/dL Total Creatine Kinase (55-170) U/L Troponin I (0.000-0.034) ng/mL Assessment and Plan Plan: #1 Acute on chronic hypoxic respiratory failure secondary to an acute exacerbation of diastolic congestive heart failure, recurrent right-sided pleural effusion and multiple previous thoracentesis most recently 03/13/2018 with 800 ML serosanguineous fluid removed. Negative for malignancy. Transudative Total protein 2.3. LDH 124. #2 Acute on chronic diastolic congestive heart failure. Preserved left ventricular systolic function with ejection fraction 50-55%. #3 History of stable, loculated right pleural effusion. #4 Pericarinal lymph node measuring 2.5 x 1.7 cm, abnormal anterior superior mediastinal lymph node measuring 1.8 x 1.4 cm. Being followed in the outpatient setting. The patient was scheduled for a PET scan on 04/03/2018. #5 Chronic atrial fibrillation, anticoagulated with warfarin. #6 Cardiac arrhythmia requiring permanent pacemaker implantation. #7 Remote history of DVT in 2006. #8 Hypertension. #9 Hyperlipidemia. #10 Coronary artery disease status post coronary artery bypass grafting. #11 Aortic valve stenosis status post aortic valve replacement utilizing a bioprosthetic aortic valve. #12 History of prostate cancer. #13 Chronic pain syndrome. #14 Anxiety/depression. Plan Discussed the findings with the patient. Reviewed the follow-up CAT scan of the chest. There is a persistent pericarinal lymph node which is 1.7-1.8 cm in size. There is also persistent right-sided pleural effusion. The findings are obviously abnormal. We'll proceed with a diagnostic bronchoscopy and biopsy of the pericarinal lymph node. We will discuss further management of the right- sided pleural effusion including the possibility of a Pleurx catheter insertion at a later stage.
--- NOTE | 2018-04-02 13:07 | P.PN ---
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 Richmond patient did have an echocardiogram with Doppler study performed in February which revealed an ejection fraction of 50-55%, LAD was severely dilated, mild regurg of the bioprosthetic aortic valve, mild to moderate mitral regurg, moderate pulmonary hypertension, mild tricuspid regurg. a in the office. Patient was recently in the hospital last month, at which time he did undergo a right sided thoracentesis by Dr. Cm. This was actually performed on March 13. Cytology of pleural fluid did not reveal any malignant cells. It showed mesothelial cells, macrophages admixed inflammatory cells. According to the patient, he states that he felt significantly better after his thoracentesis, but shortly thereafter started to become short of breath. His shortness of breath continued to worsen, he states that when he exerts himself even minimally he gets extremely short of breath. Even taking a shower, patient can hardly breathe. He denies any chest discomfort, no palpitations. When he is at rest, he states his breathing seems to be fine. Chest x-ray performed on this admission showed congestive heart failure with right pleural effusion, pleural fluid has increased compared to the last exam. EKG performed on this admission showed a ventricular paced rhythm with nonspecific ST-T wave changes. Subsequent EKG again showed a ventricular paced rhythm. Blood pressure on arrival 144/60 with a heart rate in the 60s, temperature 96.8. 100% on 3 L of oxygen. Laboratory data was reviewed, white blood cell count 6.0, hemoglobin 10.5, platelet count 193. INR 1.7, sodium 135, potassium 5.2, BUN 36, creatinine 1.2. BNP level 2420 and troponin 0.084. The patient did undergo a CAT scan of the chest this morning, results are yet pending. At the time of my examination he is sitting up in the chair at bedside, denies any overt shortness of breath, but states if he walks even to the bathroom he becomes extremely short of breath. Patient did have an echocardiogram with Doppler study performed in February which revealed an ejection fraction of 50-55%. LA is severely dilated, mild to moderate mitral regurg, mild tricuspid regurg, moderate pulmonary hypertension. 04/02/2018 Patient seen and examined this morning, sitting up in the chair at bedside. He states he does not feel any better at all today. Still quite short of breath. He is scheduled today to undergo bronchoscopy with Dr. Ovalle. Blood pressure 142/60 with a heart rate in the 60s, 99% on 2 L of oxygen. Hemoglobin 10.3, platelet count 192. INR 1.5. Sodium 135, potassium 5.0, BUN 33, creatinine 1. Objective - Vital Signs Vital signs: Vital Signs Temp 97 F L 04/02/18 08:00 Pulse 61 04/02/18 12:00 Resp 17 04/02/18 12:00 BP 144/63 04/02/18 12:00 Pulse Ox 99 04/02/18 12:00 Intake & Output 04/01/18 04/02/18 04/02/18 18:59 06:59 18:59 Intake Total 240 200 Balance 240 200 Weight 77.111 kg 79 kg Intake: IV 200 Oral 240 Other: Voiding Method Toilet Urinal # Voids 1 2 - Exam PHYSICAL EXAMINATION: GENERAL: 82-year-old gentleman in no acute distress at the time of my examination HEENT: Head is atraumatic, normocephalic. Pupils equal, round. Sclera anicteric. Conjunctiva are clear. Mucous membranes of the mouth are moist. Neck is supple. There is elevated jugular venous pressure. No carotid bruit is heard. HEART EXAMINATION: S1 and S2 systolic murmur is heard. CHEST EXAMINATION: Lungs reveal diminished air entry to the right posteriorly 1 12:[address] ABDOMEN: Soft, nontender. Bowel sounds are heard. No organomegaly noted. EXTREMITIES: 2+ peripheral pulses with no evidence of peripheral edema and no calf tenderness noted. NEUROLOGIC patient is awake, alert and oriented X3. . - Labs CBC & Chem 7: 04/02/18 06:16 04/02/18 06:16 Labs: Abnormal Lab Results - Last 24 Hours (Table) 04/01/18 04/01/18 04/02/18 Range/Units 12:14 17:29 06:16 RBC (4.30-5.90) m/uL Hgb (13.0-17.5) gm/dL Hct (39.0-53.0) % MCV (80.0-100.0) fL PT (9.0-12.0) sec INR (<1.2) Sodium 135 L (137-145) mmol/L BUN 33 H (9-20) mg/dL Total Creatine Kinase 30 L 28 L (55-170) U/L Troponin I 0.071 H* 0.072 H* (0.000-0.034) ng/mL 04/02/18 04/02/18 Range/Units 06:16 06:16 RBC 3.08 L (4.30-5.90) m/uL Hgb 10.3 L (13.0-17.5) gm/dL Hct 30.8 L (39.0-53.0) % MCV 100.1 H (80.0-100.0) fL PT 14.2 H (9.0-12.0) sec INR 1.5 H (<1.2) Sodium (137-145) mmol/L BUN (9-20) mg/dL Total Creatine Kinase (55-170) U/L Troponin I (0.000-0.034) ng/mL Assessment and Plan Plan: Assessment and plan #1 shortness of breath secondary to recurrent right sided pleural effusion. Patient recently underwent a right-sided thoracentesis last month, and on multiple occasions. Scheduled for bronchoscopy and transbronchial needle aspirate of the precarinal lymph node to establish diagnosis today. #2 history of bioprosthetic aortic valve replacement and tricuspid valve repair #3 known history of coronary artery disease #4 paroxysmal atrial fibrillation, on long-term anticoagulation with Coumadin #5 history of prior pacemaker implantation for sick sinus syndrome #6 hypertension Plan Anticoagulation continues to be on hold for the patient's procedure today. We will continue to follow. DNP note has been reviewed, I agree with a documented findings and plan of care. Patient was seen and examined.
[2018-04-02 13:10] VITALS: BMI 25.7
--- NOTE | 2018-04-02 16:11 | P.PN ---
Subjective Progress Note Date: 04/02/18 Progress note being dictated for Dr. Nevarez. Interval history: This is an 82-year-old gentleman admitted with shortness of breath, right pleural effusion of undetermined etiology and multiple other medical issues. Evaluated by both pulmonary and cardiology with recommendations noted. Complains of nonproductive cough and exertional dyspnea. 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 Anticoagulation remains on hold, for upcoming diagnostic bronchoscopy today with pulmonary. INR 1.5. Renal function improving. Potassium down to 5. Maintaining O2 sats of 100% on 3 L nasal cannula. Afebrile. Objective - Vital Signs Vital signs: Vital Signs Temp 97 F L 04/02/18 08:00 Pulse 60 04/02/18 08:00 Resp 17 04/02/18 08:00 BP 156/60 04/02/18 08:00 Pulse Ox 100 04/02/18 08:00 Intake & Output 04/01/18 04/02/18 04/02/18 18:59 06:59 18:59 Intake Total 240 Balance 240 Weight 77.111 kg 79 kg Intake: Oral 240 Other: Voiding Method Toilet Urinal # Voids 1 2 - Exam PHYSICAL EXAM: VITAL SIGNS: As above GENERAL: Sitting up in chair, increased respiratory effort HEENT: Conjunctivae normal. eyes normal. Oral mucosa dry NECK: No JVD. No thyroid enlargement. No LNs CARDIOVASCULAR: S1, S2 muffled. No murmur RESPIRATION: Breath sounds diminished in the bases. Markedly dullness on right side. Scattered rhonchi. ABDOMEN: Soft, nontender . No guarding. no masses palpable.Bowel sounds heard. LEGS: Mild edema. PSYCHIATRY: Alert and oriented -3, mood and affect normal. NERVOUS SYSTEM: Cranial N 2-12 grossly normal. Moves all 4 limbs. Diffuse weakness No focal deficits. Skin: no ulcer no rash Lymphatic system. No LN neck axilla or groin. - Labs CBC & Chem 7: 04/02/18 06:16 04/02/18 06:16 Labs: Abnormal Lab Results - Last 24 Hours (Table) 0804/01/18 04/02/18 Range/Units 12:14 17:29 06:16 RBC (4.30-5.90) m/uL Hgb (13.0-17.5) gm/dL Hct (39.0-53.0) % MCV (80.0-100.0) fL PT (9.0-12.0) sec INR (<1.2) Sodium 135 L (137-145) mmol/L BUN 33 H (9-20) mg/dL Total Creatine Kinase 30 L 28 L (55-170) U/L Troponin I 0.071 H* 0.072 H* (0.000-0.034) ng/mL 04/02/18 04/02/18 Range/Units 06:16 06:16 RBC 3.08 L (4.30-5.90) m/uL Hgb 10.3 L (13.0-17.5) gm/dL Hct 30.8 L (39.0-53.0) % MCV 100.1 H (80.0-100.0) fL PT 14.2 H (9.0-12.0) sec INR 1.5 H (<1.2) Sodium (137-145) mmol/L BUN (9-20) mg/dL Total Creatine Kinase (55-170) U/L Troponin I (0.000-0.034) ng/mL Assessment and Plan Assessment: 1. Acute on chronic hypoxic respiratory failure secondary to acute on chronic CHF, diastolic exacerbation ,recurrent right pleural effusion of undetermined etiology, diagnostic bronchoscopy pending. 2. Troponin 0.084, indeterminate 3. Hyponatremia 4. Hyperkalemia, improving 5. History of COPD 6. History of CHF 7. Gastroesophageal reflux disease 8. CAD, history of SD, aortic valve replacement, stents 9. 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 As mentioned above anticoagulation remains on hold for bronchoscopy today. Pulmonary discussing possible Pleurx catheter. Follow closely with pulmonary. Close monitoring of electrolytes and renal function with repeat labs ordered for a.m. Further recommendations to follow. The impression and plan of care has been dictated as directed. : I performed a history and examination of this patient, discussed the same with the dictator. I agree with the dictator's note ,documented as a scribe. Any additional findings or plans will be noted.
[2018-04-02] MEDS: POLYETHYLENE GLYCOL 3350 17 GM POWD.PACK PO SCH (17:08)
[2018-04-02] MEDS: ASPIRIN 325 MG TAB PO SCH (17:08)
[2018-04-02] MEDS: MULTIVITAMINS, THERA 1 EACH TAB PO SCH (17:08)
[2018-04-02] MEDS: ATORVASTATIN 10 MG TAB PO SCH (20:23)
[2018-04-02] MEDS: traZODone HCL 50 MG TAB PO SCH (20:23)
[2018-04-03 06:28] LABS: Basophils % (A) 0 %; Eosinophils # (A) 0.2 k/uL (0-0.7); Eosinophils % (A) 3 %; HCT 30.1 % (39.0-53.0); HGB 9.9 gm/dL (13.0-17.5); Lymphocytes # (A) 0.9 k/uL (1.0-4.8); Lymphocytes % (A) 15 %; MCH 32.6 pg (25.0-35.0); MCHC 32.9 g/dL (31.0-37.0); MCV 99.3 fL (80.0-100.0); Mean Platelet Volume 6.8; Monocytes # (A) 0.4 k/uL (0-1.0); Monocytes % (A) 7 %; Neutrophils # (A) 4.2 k/uL (1.3-7.7); Neutrophils % (A) 72 %; Platelet Count 196 k/uL (150-450); RBC 3.03 m/uL (4.30-5.90); RDW 13.6 % (11.5-15.5); WBC 5.8 k/uL (3.8-10.6)
[2018-04-03 06:45] LABS: Calcium 8.7 mg/dL (8.4-10.2); Potassium 4.6 mmol/L (3.5-5.1)
[2018-04-03 06:49] LABS: INR 1.4 (<1.2); Prothrombin Time 13.5 sec (9.0-12.0)
[2018-04-03] MEDS: PANTOPRAZOLE 40 MG TABLET PO SCH (06:51)
[2018-04-03] MEDS: ASPIRIN 325 MG TAB PO SCH (08:49)
[2018-04-03] MEDS: MULTIVITAMINS, THERA 1 EACH TAB PO SCH (08:49)
[2018-04-03] MEDS: FUROSEMIDE 40 MG TAB PO SCH ×2 (08:49→15:13)
[2018-04-03] MEDS: SUCRALFATE 1 GM TAB PO SCH ×2 (08:49→19:47)
[2018-04-03] MEDS: MORPHINE SULFATE ER 60 MG TABLET PO SCH ×2 (08:49→19:50)
[2018-04-03] MEDS: FERROUS SULFATE 325 MG TAB PO SCH (08:50)
[2018-04-03] MEDS: CARVEDILOL 12.5 MG TAB PO SCH (08:50)
[2018-04-03] MEDS: LISINOPRIL 2.5 MG TAB PO SCH (08:50)
[2018-04-03] MEDS: POLYETHYLENE GLYCOL 3350 17 GM POWD.PACK PO SCH (08:51)
--- NOTE | 2018-04-03 11:14 | P.PN ---
Subjective Progress Note Date: 04/03/18 Principal diagnosis: Acute on chronic hypoxic respiratory failure secondary to an acute exacerbation of diastolic congestive heart failure, recurrent right-sided pleural effusion and multiple previous thoracentesis, negative cytology. This is a very pleasant 82-year-old gentleman who follows with Dr. Lieberman as his primary care physician. He has a history of coronary artery disease, aortic valve stenosis with previous bypass surgery and valve replacement, chronic atrial fibrillation status post permanent pacemaker implantation maintained on warfarin in the outpatient setting, left lower extremity DVT, diastolic congestive heart failure, moderate pulmonary hypertension. The patient also has a history of recurrent pleural effusions dating back to June 2017 and has had subsequent multiple recurrent effusions and thoracentesis. Fluid which was transudative and negative for malignancy. His recent thoracentesis done in the inpatient setting on 03/13/2018 with 800 ML's of serosanguineous fluid removed. The patient also has a history of mediastinal adenopathy with precarinal lymph node measuring 1.8 cm. He also has chronic obstructive pulmonary disease with an FEV1 value 73% of predicted. He follows in our office in the outpatient setting. He was scheduled for a PET scan on 04/03/2018. He presented here again last evening with complaints of increasing shortness of breath, dry nonproductive cough and dyspnea on minimal exertion. He also has some level of anxiety. Chest x-ray reveals evidence of congestive heart failure with recurrent right pleural effusion. White count 6.0. Hemoglobin 10.5. INR 1.7. Creatinine 1.24. Troponin 0.084. ProBNP 2420. He is seen today in consultation on the selective care unit. He is currently sitting up in a chair at the bedside. He is awake and alert in no acute distress. He is maintaining O2 saturations up to 100% on 3 L/m per nasal cannula exertion afebrile. Hemodynamically stable. On 04/02/2008 and I'm seeing this patient for a follow-up. He is stable. No respiratory difficulties. He has no significant cough or sputum production. He is able to speak in full sentences. A repeat CAT scan of the chest was done and it showed mediastinal lymphadenopathy and there was a 1.8 cm precarinal lymph node that was persistent and was seen on previous CAT scan of the chest. There was also a small to moderate-sized right-sided pleural effusion that was somewhat loculated. As such, we discussed the various diagnostic options. We decided to proceed with a bronchoscopy and transbronchial needle aspirate of the precarinal lymph node to establish this diagnosis. One concern is malignancy whether to carcinoma or lymphoma. As for the recurrent right-sided pleural effusion, we are considering a Pleurx catheter at a later stage. No fever. No chills. No other complaints otherwise for now. The procedure were expected to the patient at length. He was agreeable. INR is at 1.5. On 04/03/2018 patient seen in follow-up. He remains quite dyspneic with any exertion. Patient had a bronchoscopy with transbronchial needle aspirate of precarinal lymph node on 04/02/2018. Patient tolerated procedure very well, biopsy results are pending at this time. Pulse ox on 2 L per nasal cannula is 94%, she is afebrile, hemodynamically stable, lung sounds are positive for diminished breath sounds over right lower lobe. Overall coarse breath sounds. No cough, no phlegm production, no fever, no chills. Objective - Vital Signs Vital signs: Vital Signs Temp 97 F L 04/03/18 08:00 Pulse 61 04/03/18 08:00 Resp 16 04/03/18 08:00 BP 137/64 04/03/18 08:00 Pulse Ox 94 L 04/03/18 08:00 Intake & Output 04/02/18 04/03/18 04/03/18 18:59 06:59 18:59 Intake Total 200 400 240 Balance 200 400 240 Weight 79 kg 78.3 kg Intake: IV 200 Oral 400 240 Other: Voiding Method Toilet Urinal # Voids 1 2 - Exam GENERAL EXAM: Alert, 82-year-old white male, comfortable in no apparent distress. HEAD: Normocephalic/atraumatic. EYES: Normal reaction of pupils, equal size. Conjunctiva pink, sclera white. NOSE: Clear with pink turbinates. THROAT: No erythema or exudates. NECK: No masses, no JVD, no thyroid enlargement, no adenopathy. CHEST: No chest wall deformity. Symmetrical expansion. LUNGS: coarse breath sounds bilaterally, with diminished breath sounds over right lower lobe CVS: Regular rate and rhythm, normal S1 and S2, no gallops, no murmurs, no rubs ABDOMEN: Soft, nontender. No hepatosplenomegaly, normal bowel sounds, no guarding or rigidity. EXTREMITIES: No clubbing, no edema, no cyanosis, 2+ pulses and upper and lower extremities. Chronic venous stasis changes noted in bilateral lower extremities MUSCULOSKELETAL: Muscle strength and tone normal. SPINE: No scoliosis or deformity SKIN: No rashes CENTRAL NERVOUS SYSTEM: Alert and oriented -3. No focal deficits, tone is normal in all 4 extremities. PSYCHIATRIC: Alert and oriented -3. Appropriate affect. Intact judgment and insight. - Labs CBC & Chem 7: 04/03/18 06:06 04/03/18 06:06 Labs: Abnormal Lab Results - Last 24 Hours (Table) 04/03/18 04/03/18 04/03/18 Range/Units 06:06 06:06 06:06 RBC 3.03 L (4.30-5.90) m/uL Hgb 9.9 L (13.0-17.5) gm/dL Hct 30.1 L (39.0-53.0) % Lymphocytes # 0.9 L (1.0-4.8) k/uL PT 13.5 H (9.0-12.0) sec INR 1.4 H (<1.2) Sodium 136 L (137-145) mmol/L BUN 31 H (9-20) mg/dL Glucose 100 H (74-99) mg/dL Assessment and Plan Plan: Assessment: #1 Acute on chronic hypoxic respiratory failure secondary to an acute exacerbation of diastolic congestive heart failure, recurrent right-sided pleural effusion and multiple previous thoracentesis most recently 03/13/2018 with 800 ML serosanguineous fluid removed. Negative for malignancy. Transudative Total protein 2.3. LDH 124. #2 Acute on chronic diastolic congestive heart failure. Preserved left ventricular systolic function with ejection fraction 50-55%. #3 History of stable, loculated right pleural effusion. #4 Pericarinal lymph node measuring 2.5 x 1.7 cm, abnormal anterior superior mediastinal lymph node measuring 1.8 x 1.4 cm. Being followed in the outpatient setting. The patient was scheduled for a PET scan on 04/03/2018. #5 Chronic atrial fibrillation, anticoagulated with warfarin. #6 Cardiac arrhythmia requiring permanent pacemaker implantation. #7 Remote history of DVT in 2006. #8 Hypertension. #9 Hyperlipidemia. #10 Coronary artery disease status post coronary artery bypass grafting. #11 Aortic valve stenosis status post aortic valve replacement utilizing a bioprosthetic aortic valve. #12 History of prostate cancer. #13 Chronic pain syndrome. #14 Anxiety/depression. Plan: Biopsy results are pending at this time, vital signs are stable, no fever, no chills, patient still complaining of exertional dyspnea. No cough, no phlegm production, no leukocytosis, continue current plan of treatment. Patient has concerns about his level of dyspnea, and going home soon. From pulmonary standpoint he could be considered for discharge, and has home oxygen, nebulized bronchodilators at home. Increase activity as tolerated I performed a history & physical examination of the patient and discussed their management with my nurse practitioner, Shara Solorzano. I reviewed the nurse practitioner's note and agree with the documented findings and plan of care. Lung sounds are coarse bilaterally, with diminished breath sounds over right lower lobe. The findings and the impression was discussed with the patient. I attest to the documentation by the nurse practitioner. Time with Patient: Less than 30
[2018-04-03] MEDS: LORazepam 0.5 MG TAB PO PRN ×2 (11:44→18:40)
--- NOTE | 2018-04-03 15:43 | XR ---
EXAMINATION TYPE: XR chest 1V portable DATE OF EXAM: 04/03/2018 COMPARISON: 04/01/2018 INDICATION: Right pleural effusion TECHNIQUE: Single frontal view of the chest is obtained. FINDINGS: The heart size is normal. The pulmonary vasculature is normal. This is increasing in prominence from prior study. Right lower lobe infiltrate is present. A small right pleural effusion is present. This is stable. Pacemaker overlies left chest. Sternotomy wires are in the midline. IMPRESSION: 1. Stable small right pleural effusion with adjacent infiltrate.
--- NOTE | 2018-04-03 17:58 | PN ---
PROGRESS NOTE DATE OF SERVICE: 04/03/2018 This 82-year-old gentleman with a past medical history of multiple medical problems was admitted with shortness of breath. The patient had a bronchoscopy yesterday by Dr. Ovalle. The patient also had right pleural effusion. Patient is being closely monitored. No chest pain. No palpitations. No fever. Cytology is pending at this time. EXAM: Alert and oriented x3. Pulse is 65, blood pressure ntd, respirations 18, temperature 98 degrees, pulse ox 98% on 2L. HEENT: Conjunctivae normal. NECK: No jugular venous distention. CARDIOVASCULAR: S1, S2 muffled. RESPIRATORY: Breath sounds diminished in the bases. A few scattered rhonchi and crackles. ABDOMEN: Soft. NERVOUS SYSTEM: Nonfocal. LABS: WBC 5, hemoglobin is 9.9. Sodium is 136. ASSESSMENT: 1. Shortness of breath with acute on chronic hypoxic respiratory failure possibly secondary to congestive heart failure acute exacerbation with acute on chronic diastolic dysfunction. 2. Recurrent right pleural effusion, status post thoracocentesis. 3. Status post bronchoscopy and transbronchial needle aspiration of the pericarinal lymph node. 4. Troponin 0.084, indeterminate. 5. Hyponatremia. 6. Hypokalemia. 7. Chronic obstructive pulmonary disease. 8. Congestive heart failure history. 9. Gastroesophageal reflux disease. 10.History of coronary artery disease, myocardial infarction, aortic replacement , stent. 11.Abdominal aortic aneurysm 4.3 cm. RECOMMENDATIONS AND DISCUSSION: Recommend to continue current medical management and continue symptomatic treatment. Otherwise, repeat x-ray. Closely follow with Pulmonary and Cardiology. Otherwise, continue to monitor. Guarded prognosis. Further recommendations to follow. MMODL / IJN: [id number] / MTDD
[2018-04-03] MEDS ORDERED: SENNOSIDES 8.6 MG TAB PO PRN (19:45)
[2018-04-03] MEDS: traZODone HCL 50 MG TAB PO SCH (19:47)
[2018-04-03] MEDS: ATORVASTATIN 10 MG TAB PO SCH (19:47)
[2018-04-03] MEDS: DOCUSATE 100 MG CAP PO SCH (19:50)
[2018-04-04 06:20] LABS: Basophils % (A) 0 %; Eosinophils # (A) 0.2 k/uL (0-0.7); Eosinophils % (A) 4 %; HCT 31.9 % (39.0-53.0); HGB 10.6 gm/dL (13.0-17.5); Lymphocytes # (A) 1.2 k/uL (1.0-4.8); Lymphocytes % (A) 20 %; MCH 33.5 pg (25.0-35.0); MCHC 33.2 g/dL (31.0-37.0); Macrocytosis Slight; Mean Platelet Volume 6.7; Monocytes # (A) 0.5 k/uL (0-1.0); Monocytes % (A) 8 %; Neutrophils # (A) 3.8 k/uL (1.3-7.7); Neutrophils % (A) 64 %; Platelet Count 185 k/uL (150-450); RBC 3.15 m/uL (4.30-5.90); RDW 14.1 % (11.5-15.5); WBC 5.8 k/uL (3.8-10.6)
[2018-04-04 06:22] LABS: INR 1.3 (<1.2); Prothrombin Time 12.1 sec (9.0-12.0)
[2018-04-04 06:31] LABS: Calcium 8.9 mg/dL (8.4-10.2); Potassium 4.5 mmol/L (3.5-5.1)
[2018-04-04] MEDS: PANTOPRAZOLE 40 MG TABLET PO SCH (06:38)
[2018-04-04] MEDS: ASPIRIN 325 MG TAB PO SCH (09:02)
[2018-04-04] MEDS: LISINOPRIL 2.5 MG TAB PO SCH (09:03)
[2018-04-04] MEDS: LORazepam 0.5 MG TAB PO PRN ×2 (09:03→20:27)
[2018-04-04] MEDS: SUCRALFATE 1 GM TAB PO SCH ×2 (09:04→20:53)
[2018-04-04] MEDS: FUROSEMIDE 40 MG TAB PO SCH ×2 (09:04→15:41)
[2018-04-04] MEDS: FERROUS SULFATE 325 MG TAB PO SCH (09:04)
[2018-04-04] MEDS: POLYETHYLENE GLYCOL 3350 17 GM POWD.PACK PO SCH (09:04)
[2018-04-04] MEDS: DOCUSATE 100 MG CAP PO SCH ×2 (09:04→20:53)
[2018-04-04] MEDS: CARVEDILOL 12.5 MG TAB PO SCH (09:04)
[2018-04-04] MEDS: MORPHINE SULFATE ER 60 MG TABLET PO SCH ×2 (09:07→23:05)
[2018-04-04] MEDS: MULTIVITAMINS, THERA 1 EACH TAB PO SCH (12:15)
[2018-04-04] MEDS ORDERED: LACTULOSE 20 GM/30 ML CUP PO PRN (12:23)
[2018-04-04] MEDS ORDERED: LACTATED RINGERS 1,000 ML IV SCH (16:42)
--- NOTE | 2018-04-04 17:59 | PN ---
PROGRESS NOTE DATE OF SERVICE: 04/04/2018 This 82-year-old gentleman who was admitted with shortness of breath, is being closely monitored. Dr. Ovalle has performed a bronchoscopy. The chest x-ray showed some improvement. No chest pain. No palpitations. No fever. The patient is still complaining of shortness of breath. PHYSICAL EXAM: Alert and oriented x3. Pulse 60, blood pressure 140/67, respirations 18, temperature 98.2, pulse ox 98% on 2 L. HEENT: Conjunctivae normal. Oral mucosa moist. NECK: No jugular venous distention. No carotid bruit. No lymph node enlargement. CARDIOVASCULAR: S1, S2. RESPIRATORY: Breath sounds diminished in the bases. A few scattered rhonchi and crackles, much improved. ABDOMEN: Soft, nontender. NERVOUS SYSTEM: No focal deficits. LABS: WBC 8.4, hemoglobin 10.6. ASSESSMENT: 1. Shortness of breath with possibly secondary to congestive heart failure acute exacerbation with acute on chronic diastolic dysfunction with acute on chronic hypoxic respiratory failure. 2. Recurrent right pleural effusion status post thoracocentesis. 3. Status post bronchoscopy and transbronchial needle aspiration of carinal lymph node. 4. Troponin 0.085 indeterminate. 5. Hyponatremia. 6. Hypokalemia. 7. Chronic obstructive pulmonary disease. 8. Congestive heart failure. 9. History of gastroesophageal reflux disease. 10.History of coronary artery disease, myocardial infarction. 11.History of aortic valve replacement. 12.History of stent. 13.History of abdominal aortic aneurysm 4.3 cm. RECOMMENDATIONS AND DISCUSSION: I recommend to continue current management and symptomatic treatment. Patient has multiple medical issues as recommended earlier. I would recommend continue with p.o. diuretics. Increase ambulation. Otherwise I would also recommend closely follow with Pulmonary and Cardiology. Further recommendations to follow. MMODL / IJN: [id number] /
[2018-04-04] MEDS: traZODone HCL 50 MG TAB PO SCH (20:52)
[2018-04-04] MEDS: ATORVASTATIN 10 MG TAB PO SCH (20:53)
[2018-04-05] MEDS: MORPHINE SULFATE ER 60 MG TABLET PO SCH (08:07)
[2018-04-05] MEDS: DOCUSATE 100 MG CAP PO SCH (08:09)
[2018-04-05] MEDS: MULTIVITAMINS, THERA 1 EACH TAB PO SCH (08:09)
[2018-04-05] MEDS: SUCRALFATE 1 GM TAB PO SCH (08:09)
[2018-04-05] MEDS: ASPIRIN 325 MG TAB PO SCH (08:10)
[2018-04-05] MEDS: PANTOPRAZOLE 40 MG TABLET PO SCH (08:10)
[2018-04-05 08:14] VITALS: BP 119/46; PULSE 60; RESP 14; TEMP 98.5
[2018-04-05] MEDS: LISINOPRIL 2.5 MG TAB PO SCH (08:14)
[2018-04-05] MEDS: FUROSEMIDE 40 MG TAB PO SCH (08:14)
[2018-04-05] MEDS: CARVEDILOL 12.5 MG TAB PO SCH (08:14)
[2018-04-05] MEDS: FERROUS SULFATE 325 MG TAB PO SCH (08:14)
[2018-04-05 08:15] LABS: Basophils % (A) 0 %; Eosinophils # (A) 0.2 k/uL (0-0.7); Eosinophils % (A) 3 %; HCT 32.5 % (39.0-53.0); HGB 11.1 gm/dL (13.0-17.5); Lymphocytes # (A) 1.3 k/uL (1.0-4.8); Lymphocytes % (A) 22 %; MCH 33.8 pg (25.0-35.0); MCV 99.2 fL (80.0-100.0); Mean Platelet Volume 6.8; Monocytes # (A) 0.4 k/uL (0-1.0); Monocytes % (A) 7 %; Neutrophils % (A) 65 %; Platelet Count 169 k/uL (150-450); RBC 3.28 m/uL (4.30-5.90); WBC 6.1 k/uL (3.8-10.6)
[2018-04-05] MEDS: POLYETHYLENE GLYCOL 3350 17 GM POWD.PACK PO SCH (08:15)
[2018-04-05 08:17] LABS: INR 1.2 (<1.2); Prothrombin Time 11.6 sec (9.0-12.0)
[2018-04-05] MEDS: LORazepam 0.5 MG TAB PO PRN ×2 (08:19→14:35)
[2018-04-05 09:01] LABS: Potassium 4.4 mmol/L (3.5-5.1)
--- NOTE | 2018-04-05 11:44 | P.PN ---
Subjective Progress Note Date: 04/05/18 Principal diagnosis: Shortness of breath Progress note dated 04/05/2018 This is an 82-year-old male with a history of acute on chronic hypoxemic respiratory failure secondary to diastolic heart failure. The patient also has a history of recurrent right-sided pleural effusion with multiple previous thoracentesis. It is been negative for malignancy. In addition to his chronic diastolic heart failure the patient has a precarinal lymph node that measured 2.5 x 1.7 cm. The patient had a transbronchial needle aspiration of the lymph node by my partner. Pathology is pending. He has a history of chronic atrial fibrillation status post pacemaker insertion remote history of DVT hypertension hyperlipidemia CAD with previous bypass grafting aortic valve stenosis, status post aortic valve replacement prostate cancer chronic pain syndrome as well as anxiety and depression. The patient is sitting in the chair at the bedside. He is on oxygen therapy. He seemed pretty comfortable. The team was planning to let the patient go over the weekend. Some reason the patient is still here. Chest x-ray shows a stable right-sided effusion/infiltrate. In addition, the patient is scheduled for outpatient PET scan. Objective - Vital Signs Vital signs: Vital Signs Temp 98.5 F 04/05/18 08:14 Pulse 60 04/05/18 08:14 Resp 14 04/05/18 08:14 BP 119/46 04/05/18 08:14 Pulse Ox 99 04/05/18 08:14 Intake & Output 04/04/18 04/05/18 04/05/18 18:59 06:59 18:59 Intake Total 230 600 Balance 230 600 Weight 76.771 kg Intake: Oral 230 600 Other: Voiding Method Toilet Toilet Urinal Urinal # Voids 1 2 - Exam No acute distress, oriented 3. Supplemental oxygen in place. HEENT examination is grossly unremarkable. Mucous membranes are moist. No oral lesions. Neck supple. Full range of motion. No adenopathy thyromegaly or neck vein distention. Cardiovascular examination reveals regular rhythm rate. S1-S2 normal. No S3 or S4. No discernible murmur noted. Lungs reveal bilateral coarse breath sounds. Most of the abnormal breath sounds are of the right base. There is no wheezes. No crackles. Breath sounds are otherwise equal bilaterally. Abdomen soft bowel sounds are heard. No masses or tenderness. Extremities reveal chronic venous stasis changes. Slight edema noted. Skin is without rash or lesion. Neurologic examination is brief but nonfocal. - Labs CBC & Chem 7: 04/05/18 07:47 04/05/18 07:47 Labs: Abnormal Lab Results - Last 24 Hours (Table) 04/05/18 04/05/18 04/05/18 Range/Units 07:47 07:47 07:47 RBC 3.28 L (4.30-5.90) m/uL Hgb 11.1 L (13.0-17.5) gm/dL Hct 32.5 L (39.0-53.0) % INR 1.2 H (<1.2) Carbon Dioxide 31 H (22-30) mmol/L BUN 30 H (9-20) mg/dL Glucose 106 H (74-99) mg/dL Assessment and Plan Assessment: Assessment Acute on chronic hypoxemic respiratory failure secondary to acute exacerbation of diastolic congestive heart failure with recurrent right-sided pleural effusion and multiple previous thoracentesis. Acute on chronic diastolic heart failure with preserved left ventricular ejection fraction Loculated right pleural effusion, status post multiple thoracentesis, negative for malignancy 2.5 x 1.7 cm precarinal lymph node, status post transbronchial needle aspiration , with path pending Chronic atrial fibrillation Status post pacemaker insertion History of remote DVT History of hypertension Hyperlipidemia by history Status post bypass grafting for CAD and aortic valve replacement for aortic valve stenosis Prostate cancer Chronic pain syndrome Anxiety/depression Plan: Plan dated 04/05/2018 From our perspective, the patient could be discharged home. He is apparently set up for an outpatient PET scan. The path report from the transbronchial needle aspiration when checked just recently, is still pending. Additional recommendations and suggestions are forthcoming. Prognosis is guarded. The patient is stable from the pulmonary standpoint. Time with Patient: Less than 30
--- NOTE | 2018-04-05 15:00 | DS ---
DISCHARGE SUMMARY DATE OF SERVICE: 04/05/2018. FINAL DIAGNOSES: 1. Shortness of breath, possible secondary to congestive heart failure acute exacerbation with acute on chronic diastolic dysfunction with acute on chronic hypoxic respiratory failure as well as possible chronic obstructive pulmonary disease acute exacerbation. 2. Recurrent right pleural effusion, status post thoracocentesis. 3. Status post bronchoscopy and transbronchial needle aspiration of carinal lymph nodes. 4. Troponin 0.085, indeterminate. 5. Hyponatremia. 6. Hypokalemia. 7. Chronic obstructive pulmonary disease. 8. History of congestive heart failure. 9. History of gastroesophageal reflux disease. 10.History of coronary artery disease, myocardial infarction. 11.History of aortic valve replacement. 12.History of coronary artery disease with stent. 13.History of abdominal aortic aneurysm, 4.3 cm. DISCHARGE CONDITION: The patient will be discharged in stable condition with guarded prognosis. HISTORY OF PRESENT ILLNESS: This 82-year-old gentleman with a past history of multiple medical problems was admitted with shortness of breath and recurrent right pleural effusion. Dr. Ovalle performed a bronchoscopy and biopsy. The findings are pending at this time. The exact etiology of pleural effusion is unknown at this time. Previous cytology has been negative. Dr. Ovalle treated the patient conservative. The patient improved significantly. On exam, vitals are stable. Cardiovascular S1, S2. Abdomen soft. Nervous system, no focal deficits. DISCHARGE DIET: Cardiac. DISCHARGE ACTIVITY: Limited. FOLLOWUP: 1. Follow up with Dr. Simon in 2 to 3 days. 2. Follow up with Dr. Ovalle. 3. Follow up with Cardiology. MEDICATIONS: 1. Coreg 25 mg p.o. daily. 2. Iron sulfate 325 mg p.o. daily. 3. Zestril 2.5 mg daily. 4. Ativan 0.5 mg q.i.d. 5. Mevacor 20 mg at bedtime. 6. MS Contin 60 mg p.o. b.i.d. 7. Multivitamins 1 p.o. daily. 8. Oxycodone 50 mg b.i.d. p.r.n. 9. Protonix 40 mg p.o. daily. 10.Promethazine 2.5 mg b.i.d. p.r.n. 11.Carafate 1 g p.o. b.i.d. 12.Trazodone 100 mg at bedtime. 13.Coenzyme Q 200 mg p.o. daily. 14.Coumadin 5 mg p.o. at bedtime and 2 mg. 15.Symbicort 160/4.5 two puffs b.i.d. 16.Ceftin 500 mg p.o. b.i.d. for 5 days. 17.Colace 100 mg p.o. b.i.d. p.r.n. 18.Lasix 40 mg p.o. b.i.d. 19.DuoNeb q.i.d. and p.r.n. 20.Cephulac p.r.n. 21.MiraLAX p.r.n. 22.Prednisone taper, 40 mg daily for 3 days, 30 for 3 days 20 for 3 days, 10 for 3 days, and then stop. 23.Senna p.r.n. Once again, the patient will be discharged in stable condition with guarded prognosis. MMODL / IJN: [id number] /
== END 2018-04-05 16:02 | disposition home health service (06) | DRG 291 ==
LOC: EC 04:12 → 6SEL 06:33 → 5MS5E 04-04 16:40
PROVIDERS: ADMIT Hospitalist; ATTEND Hospitalist
PROC: 07D78ZX Extraction of Thorax Lymphatic, Via Natural or Artificial Opening Endoscopic, Diagnostic (ICD-10-PCS; principal; 2018-04-02 07:30)
DX: I11.0 Hypertensive heart disease with heart failure (principal); J96.21 Acute and chronic respiratory failure with hypoxia; J44.1 Chronic obstructive pulmonary disease with (acute) exacerbation; E87.1 Hypo-osmolality and hyponatremia; J98.11 Atelectasis; I50.33 Acute on chronic diastolic (congestive) heart failure; R77.8 Other specified abnormalities of plasma proteins; E87.6 Hypokalemia; I48.2 Chronic atrial fibrillation; K21.9 Gastro-esophageal reflux disease without esophagitis; I27.20 Pulmonary hypertension, unspecified; I25.10 Atherosclerotic heart disease of native coronary artery without angina pectoris; R59.0 Localized enlarged lymph nodes; E87.5 Hyperkalemia; F32.9 Major depressive disorder, single episode, unspecified; F41.9 Anxiety disorder, unspecified; G89.4 Chronic pain syndrome; I42.9 Cardiomyopathy, unspecified; E78.5 Hyperlipidemia, unspecified; N40.0 Benign prostatic hyperplasia without lower urinary tract symptoms; I71.4 Abdominal aortic aneurysm, without rupture; J84.10 Pulmonary fibrosis, unspecified; I25.2 Old myocardial infarction; Z95.5 Presence of coronary angioplasty implant and graft; Z86.718 Personal history of other venous thrombosis and embolism; Z79.01 Long term (current) use of anticoagulants; Z79.899 Other long term (current) drug therapy; Z95.2 Presence of prosthetic heart valve; Z95.0 Presence of cardiac pacemaker; Z85.46 Personal history of malignant neoplasm of prostate; Z98.42 Cataract extraction status, left eye; Z98.41 Cataract extraction status, right eye; Z95.1 Presence of aortocoronary bypass graft; Z98.890 Other specified postprocedural states; Z99.81 Dependence on supplemental oxygen; Z90.49 Acquired absence of other specified parts of digestive tract; Z87.891 Personal history of nicotine dependence; Z82.49 Family history of ischemic heart disease and other diseases of the circulatory system; Z87.01 Personal history of pneumonia (recurrent)
CPT/HCPCS: 31629; 36415; 71045; 71046; 71260; 80048; 80053; 80061; 81003; 82550; 82553; 83735; 83880; 84484; 85025; 85610; 85730; 88173; 88305; 93005; 99285

== ENCOUNTER 2018-04-10 11:19 | Inpatient (IN) | payer MEDICARE ==
[2018-04-10] MEDS ORDERED: SODIUM CHLORIDE 0.9% 1,000 ML IV STA (11:40)
[2018-04-10] MEDS ORDERED: ALBUTEROL NEBULIZED 2.5 MG/3 ML INHALATION STA (11:40)
[2018-04-10] MEDS ORDERED: IPRATROPIUM 0.5 MG/2.5 ML NEBU INHALATION STA (11:40)
--- NOTE | 2018-04-10 12:12 | ED ---
General Adult HPI - General Chief complaint: Shortness of Breath Stated complaint: Diff Breathing Time Seen by Provider: 04/10/18 11:40 Source: patient, RN notes reviewed, old records reviewed Mode of arrival: wheelchair Limitations: no limitations - History of Present Illness Initial comments: This is an 82-year-old male to the ER today. Patient has a for evaluation shortness of breath. Patient multiple this hospital for shortness of breath. Patient states he cannot seem to catch his breath cannot do any activity without having difficulty breathing. He states he did get a breathing treatment at home but he does not have medication to put in it. He states his any difficulty catching his breath and when he came in the ER today he was having severe low readings on his oxygen at home. - Related Data Home Medications Medication Instructions Recorded Confirmed Carvedilol 25 mg PO DAILY 06/19/15 04/10/18 Ferrous Sulfate [Iron (65 MG 325 mg PO DAILY 06/19/15 04/10/18 Elemental)] oxyCODONE HCL 15 mg PO BID PRN 06/19/15 04/10/18 LORazepam [Ativan] 0.5 mg PO QID PRN 07/28/16 04/10/18 Ubidecarenone [Co Q-10] 200 mg PO DAILY 07/28/16 04/10/18 Lovastatin [Mevacor] 20 mg PO HS 11/20/17 04/10/18 Warfarin [Coumadin] 5 mg PO HS 11/20/17 04/10/18 traZODone HCL 100 mg PO HS 11/20/17 04/10/18 Lisinopril [Zestril] 2.5 mg PO DAILY 03/10/18 04/10/18 Promethazine HCl 12.5 mg PO BID PRN 03/10/18 04/10/18 Morphine Sulfate [Ms Contin] 60 mg PO Q12HR 04/01/18 04/10/18 Multivitamins, Thera [Multivitamin 1 tab PO DAILY 04/01/18 04/10/18 (formulary)] Pantoprazole [Protonix] 40 mg PO DAILY 04/01/18 04/10/18 Sucralfate [Carafate] 1 gm PO BID 04/01/18 04/10/18 Warfarin Sodium 2 mg PO HS 04/01/18 04/10/18 Budesonide-Formot 160-4.5 Mcg 2 puff INHALATION RT-BID 04/10/18 04/10/18 [Symbicort 160-4.5 Mcg Inhaler] Ipratropium-Albuterol Nebulize 3 ml INHALATION RT-QID 04/10/18 04/10/18 [Duoneb 0.5 mg-3 mg/3 ml Soln] predniSONE See Taper PO DIRECTED 04/10/18 04/10/18 Previous Rx's Medication Instructions Recorded Furosemide [Lasix] 40 mg PO BID #60 tablet 11/21/17 Polyethylene Glycol 3350 [Miralax] 17 gm PO DAILY powd.pack 02/07/18 Cefuroxime Axetil [Ceftin] 500 mg PO BID #10 tab 04/05/18 Docusate [Colace] 100 mg PO BID cap 04/05/18 Lactulose [Cephulac] 30 gm PO TID PRN ml 04/05/18 Sennosides [Senokot] 8.6 mg PO DAILY PRN tab 04/05/18 Allergies Allergy/AdvReac Type Severity Reaction Status Date / Time No Known Allergies Allergy Verified 04/10/18 13:00 Review of Systems ROS Statement: Those systems with pertinent positive or pertinent negative responses have been documented in the HPI. ROS Other: All systems not noted in ROS Statement are negative. Past Medical History Past Medical History: Atrial Fibrillation, Coronary Artery Disease (CAD), Cancer , Chest Pain / Angina, Heart Failure, COPD, Deep Vein Thrombosis (DVT), GERD/ Reflux, Hyperlipidemia, Hypertension, Myocardial Infarction ([place]), Pneumonia, Prostate Disorder Additional Past Medical History / Comment(s): Home O2 at 2L/NC lately ATC, recurrent R pleural effusions, thoracic adenopathy, pneumonias, pneumonia with sepsis, bronchitis, bilateral lower leg edema/redness L lower leg, L leg DVT in 2006, chronic L leg pain/ neurological damage, BPH, prostrate cancer with surgery, constipation, recently had 4 teeth extracted, Last Myocardial Infarction Date:: 2005 History of Any Multi-Drug Resistant Organisms: None Reported Past Surgical History: Appendectomy, Cardiac Valve Replacement, Cholecystectomy , Heart Catheterization, Heart Catheterization With Stent, Hernia Repair, Pacemaker, Prostate Surgery Additional Past Surgical History / Comment(s): 2016 aortic valve replacement, bilateral cataracts removal, prostatectomy, penile implant x2, R sided thoracentesises, bilateral inguinal hernia repair, L leg dvt surgically removed , colonoscopies. Past Anesthesia/Blood Transfusion Reactions: Previous Problems w/ Anesthesia Additional Past Anesthesia/Blood Transfusion Reaction / Comment(s): "one time BP dropped too low" Date of Last Stent Placement:: 2005 Type of Cardiac Device: Permanent Pacemaker Device Placement Date:: 2004? Past Psychological History: Anxiety Smoking Status: Former smoker Past Alcohol Use History: None Reported Past Drug Use History: None Reported - Past Family History Brother(s) Family Medical History: Cancer Sister(s) Family Medical History: Cancer Father Family Medical History: Cancer Additional Family Medical History / Comment(s): Father had prostrate cancer. He had CAD/CABG. He at the age of 78yrs during coronary angioplasty. Mother Family Medical History: Myocardial Infarction (OR) Additional Family Medical History / Comment(s): Mother had a OR at the age of 35yrs. She had CABG. She lived to be 93 yrs old. General Exam Limitations: no limitations General appearance: alert, in no apparent distress Head exam: Present: atraumatic, normocephalic, normal inspection Eye exam: Present: normal appearance, PERRL, EOMI. Absent: scleral icterus, conjunctival injection, periorbital swelling ENT exam: Present: normal exam, mucous membranes moist Neck exam: Present: normal inspection. Absent: tenderness, meningismus, lymphadenopathy Respiratory exam: Present: normal lung sounds bilaterally. Absent: respiratory distress, wheezes, rales, rhonchi, stridor Cardiovascular Exam: Present: regular rate, normal rhythm, normal heart sounds. Absent: systolic murmur, diastolic murmur, rubs, gallop, clicks GI/Abdominal exam: Present: soft, normal bowel sounds. Absent: distended, tenderness, guarding, rebound, rigid Extremities exam: Present: normal inspection, full ROM, normal capillary refill. Absent: tenderness, pedal edema, joint swelling, calf tenderness Back exam: Present: normal inspection Neurological exam: Present: alert, oriented X3, CN II-XII intact Psychiatric exam: Present: normal affect, normal mood Skin exam: Present: warm, dry, intact, normal color. Absent: rash Course Vital Signs 04/10/18 04/10/18 04/10/18 11:33 11:38 12:05 Temperature 97.8 F Pulse Rate 60 60 Respiratory 18 18 Rate Blood Pressure 144/65 O2 Sat by Pulse 87 L Oximetry 04/10/18 04/10/18 12:23 13:08 Temperature Pulse Rate 66 60 Respiratory 16 Rate Blood Pressure 154/64 O2 Sat by Pulse 94 L Oximetry - Reevaluation(s) Reevaluation #1: 04/10/18 12:12 Medical record is reviewed Reevaluation #2: 04/10/18 12:12 Patient is a significantly low O2 EKG Findings - EKG Comments: EKG Findings:: EKG shows paced rhythm rate of 60, QRS 182, QTC 532 Medical Decision Making - Medical Decision Making 82 male the ER with shortness of breath, new anemia with COPD exacerbation and hypoxia, will admit for breathing treatments and evaluation - Lab Data Result diagrams: 04/10/18 12:05 04/10/18 12:05 Lab Results 04/10/18 04/10/18 04/10/18 Range/Units 12:05 12:05 12:05 WBC 9.6 (3.8-10.6) k/uL RBC 2.71 L (4.30-5.90) m/uL Hgb 9.1 L D (13.0-17.5) gm/dL Hct 26.3 L (39.0-53.0) % MCV 97.2 (80.0-100.0) fL MCH 33.8 (25.0-35.0) pg MCHC 34.7 (31.0-37.0) g/dL RDW 14.3 (11.5-15.5) % Plt Count 198 (150-450) k/uL Neutrophils % 86 % Lymphocytes % 8 % Monocytes % 4 % Eosinophils % 0 % Basophils % 0 % Neutrophils # 8.3 H (1.3-7.7) k/uL Lymphocytes # 0.7 L (1.0-4.8) k/uL Monocytes # 0.4 (0-1.0) k/uL Eosinophils # 0.0 (0-0.7) k/uL Basophils # 0.0 (0-0.2) k/uL PT (9.0-12.0) sec INR (<1.2) APTT (22.0-30.0) sec Sodium 135 L (137-145) mmol/L Potassium 5.0 (3.5-5.1) mmol/L Chloride 96 L (98-107) mmol/L Carbon Dioxide 30 (22-30) mmol/L Anion Gap 9 mmol/L BUN 50 H (9-20) mg/dL Creatinine 1.15 (0.66-1.25) mg/dL Est GFR (CKD-EPI)AfAm 69 (>60 ml/min/1.73 sqM) Est GFR (CKD-EPI)NonAf 59 (>60 ml/min/1.73 sqM) Glucose 122 H (74-99) mg/dL Calcium 8.5 (8.4-10.2) mg/dL Magnesium 2.1 (1.6-2.3) mg/dL Total Bilirubin 0.4 (0.2-1.3) mg/dL AST 34 (17-59) U/L ALT 30 (21-72) U/L Alkaline Phosphatase 71 (38-126) U/L Total Creatine Kinase <20 L (55-170) U/L CK-MB (CK-2) 0.9 (0.0-2.4) ng/mL CK-MB (CK-2) Rel Index Troponin I 0.028 (0.000-0.034) ng/mL NT-Pro-B Natriuret Pep pg/mL Total Protein 6.4 (6.3-8.2) g/dL Albumin 3.5 (3.5-5.0) g/dL 04/10/18 04/10/18 Range/Units 12:05 12:05 WBC (3.8-10.6) k/uL RBC (4.30-5.90) m/uL Hgb (13.0-17.5) gm/dL Hct (39.0-53.0) % MCV (80.0-100.0) fL MCH (25.0-35.0) pg MCHC (31.0-37.0) g/dL RDW (11.5-15.5) % Plt Count (150-450) k/uL Neutrophils % % Lymphocytes % % Monocytes % % Eosinophils % % Basophils % % Neutrophils # (1.3-7.7) k/uL Lymphocytes # (1.0-4.8) k/uL Monocytes # (0-1.0) k/uL Eosinophils # (0-0.7) k/uL Basophils # (0-0.2) k/uL PT 21.9 H (9.0-12.0) sec INR 2.4 H (<1.2) APTT 25.5 (22.0-30.0) sec Sodium (137-145) mmol/L Potassium (3.5-5.1) mmol/L Chloride (98-107) mmol/L Carbon Dioxide (22-30) mmol/L Anion Gap mmol/L BUN (9-20) mg/dL Creatinine (0.66-1.25) mg/dL Est GFR (CKD-EPI)AfAm (>60 ml/min/1.73 sqM) Est GFR (CKD-EPI)NonAf (>60 ml/min/1.73 sqM) Glucose (74-99) mg/dL Calcium (8.4-10.2) mg/dL Magnesium (1.6-2.3) mg/dL Total Bilirubin (0.2-1.3) mg/dL AST (17-59) U/L ALT (21-72) U/L Alkaline Phosphatase (38-126) U/L Total Creatine Kinase (55-170) U/L CK-MB (CK-2) (0.0-2.4) ng/mL CK-MB (CK-2) Rel Index Troponin I (0.000-0.034) ng/mL NT-Pro-B Natriuret Pep 3140 pg/mL Total Protein (6.3-8.2) g/dL Albumin (3.5-5.0) g/dL - Radiology Data Radiology results: report reviewed (Chest x-rays negative for acute disease), image reviewed Disposition Clinical Impression: Acute and chronic respiratory failure with hypoxia, Failure of outpatient treatment, Chronic anemia, Anemia, Hypoxia Disposition: ADMITTED IP TO THIS HOSP Condition: Fair Is patient prescribed a controlled substance at d/c from ED?: No Referrals: Adolfo Lieberman DO [Primary Care Provider] - 1-2 days
[2018-04-10 12:35] LABS: Basophils % (A) 0 %; Eosinophils % (A) 0 %; HCT 26.3 % (39.0-53.0); HGB 9.1 gm/dL (13.0-17.5); Lymphocytes # (A) 0.7 k/uL (1.0-4.8); Lymphocytes % (A) 8 %; MCH 33.8 pg (25.0-35.0); MCHC 34.7 g/dL (31.0-37.0); MCV 97.2 fL (80.0-100.0); Mean Platelet Volume 6.8; Monocytes # (A) 0.4 k/uL (0-1.0); Monocytes % (A) 4 %; Neutrophils # (A) 8.3 k/uL (1.3-7.7); Neutrophils % (A) 86 %; Platelet Count 198 k/uL (150-450); RBC 2.71 m/uL (4.30-5.90); RDW 14.3 % (11.5-15.5); WBC 9.6 k/uL (3.8-10.6)
[2018-04-10 12:39] LABS: Albumin 3.5 g/dL (3.5-5.0); Calcium 8.5 mg/dL (8.4-10.2); Magnesium 2.1 mg/dL (1.6-2.3); Total Bilirubin 0.4 mg/dL (0.2-1.3); Total Protein 6.4 g/dL (6.3-8.2)
[2018-04-10 12:43] LABS: Creatine Kinase <20 U/L (55-170); INR 2.4 (<1.2); Partial Thromboplastin Time 25.5 sec (22.0-30.0); Prothrombin Time 21.9 sec (9.0-12.0)
[2018-04-10 12:56] LABS: Creatine Kinase MB 0.9 ng/mL (0.0-2.4); Troponin I 0.028 ng/mL (0.000-0.034)
--- NOTE | 2018-04-10 13:11 | XR ---
EXAMINATION TYPE: XR chest 1V portable DATE OF EXAM: 04/10/2018 HISTORY: sob. REFERENCE: Previous study dated 04/03/2018. FINDINGS: There has been a midline sternotomy. A unipolar pacemaker is in place on the left. The heart is enlarged. There is continuing opacity of the right lower chest, likely a combination of pleural fluid and atelectasis. The overall appearance may have worsened slightly from previous. IMPRESSION: 1. CARDIOMEGALY. 2. WORSENING OPACITY IN THE RIGHT LUNG BASE LIKELY REPRESENTING COMBINATION OF PLEURAL FLUID AND ATEL ECTASIS. PNEUMONIA IS NOT EXCLUDED.
[2018-04-10] MEDS ORDERED: methylPREDNISolone SOD SUCCI 125 MG/2 ML VIAL IV STA (14:02)
[2018-04-10] MEDS: SODIUM CHLORIDE 0.9% 1,000 ML IV SCH ×2 (15:28→23:15)
[2018-04-10] MEDS ORDERED: SENNOSIDES 8.6 MG TAB PO PRN (15:29)
[2018-04-10] MEDS ORDERED: LACTULOSE 20 GM/30 ML CUP PO PRN (15:29)
[2018-04-10] MEDS: IPRATROPIUM-ALBUTEROL 3 ML NEB INHALATION SCH ×2 (15:58→19:56)
[2018-04-10] MEDS: methylPREDNISolone SOD SUCCI 125 MG/2 ML VIAL IV SCH ×2 (17:46→23:14)
[2018-04-10 20:51] LABS: Glucose,Whole Blood 185 mg/dL (75-99)
[2018-04-10] MEDS ORDERED: FUROSEMIDE 10 MG/ML 4 ML VIAL IV SCH (21:00)
[2018-04-10] MEDS: traZODone HCL 100 MG TAB PO SCH (21:02)
[2018-04-10] MEDS: LORazepam 0.5 MG TAB PO PRN (21:02)
[2018-04-10] MEDS: MORPHINE SULFATE ER 60 MG TABLET PO SCH (21:02)
[2018-04-10] MEDS: WARFARIN 2 MG TAB PO SCH (21:03)
[2018-04-10] MEDS: SUCRALFATE 1 GM TAB PO SCH (21:03)
[2018-04-10] MEDS: ATORVASTATIN 10 MG TAB PO SCH (21:03)
[2018-04-10] MEDS: DOCUSATE 100 MG CAP PO SCH (21:03)
[2018-04-10] MEDS: WARFARIN 5 MG TAB PO SCH (21:03)
[2018-04-10] MEDS: INSULIN ASPART 100 UNIT/ML 1 ML 10 ML VIAL SQ SCH (21:07)
[2018-04-11] MEDS: methylPREDNISolone SOD SUCCI 125 MG/2 ML VIAL IV SCH ×2 (05:38→12:46)
[2018-04-11] MEDS: FUROSEMIDE 10 MG/ML 4 ML VIAL IV SCH ×2 (05:38→18:40)
[2018-04-11 07:20] LABS: Glucose,Whole Blood 171 mg/dL (75-99)
[2018-04-11] MEDS: IPRATROPIUM-ALBUTEROL 3 ML NEB INHALATION SCH ×4 (07:48→20:04)
[2018-04-11] MEDS: INSULIN ASPART 100 UNIT/ML 1 ML 10 ML VIAL SQ SCH ×4 (07:54→20:50)
[2018-04-11] MEDS: SUCRALFATE 1 GM TAB PO SCH ×2 (07:55→20:47)
[2018-04-11] MEDS: CARVEDILOL 12.5 MG TAB PO SCH (07:55)
[2018-04-11] MEDS: POLYETHYLENE GLYCOL 3350 17 GM POWD.PACK PO SCH (07:55)
[2018-04-11] MEDS: PANTOPRAZOLE 40 MG TABLET PO SCH (07:56)
[2018-04-11] MEDS: FERROUS SULFATE 325 MG TAB PO SCH (07:56)
[2018-04-11] MEDS: DOCUSATE 100 MG CAP PO SCH ×2 (07:56→20:46)
[2018-04-11] MEDS: MORPHINE SULFATE ER 60 MG TABLET PO SCH ×2 (07:57→20:46)
[2018-04-11] MEDS ORDERED: NON-FORMULARY DRUG (Ubidecarenone [Co Q-10] 200 MG) PO SCH (09:00)
[2018-04-11] MEDS ORDERED: ENOXAPARIN 40 MG/0.4 ML SYRINGE SQ SCH (09:00)
[2018-04-11] MEDS: LISINOPRIL 2.5 MG TAB PO SCH (09:35)
[2018-04-11] MEDS: SODIUM CHLORIDE 0.9% 1,000 ML IV SCH (09:37)
--- NOTE | 2018-04-11 12:02 | P.CNPUL ---
History of Present Illness Consult date: 04/11/18 Reason for consult: dyspnea, hypoxemia, pleural effusion, abnormal CXR/CT Chief complaint: Chronic shortness of breath History of present illness: Pulmonary consultation dated 04/11/2018 82-year-old male who presented to the emergency room yesterday on April 10 with complaints of increasing shortness of breath. Minimal activity causes the patient to become short of breath. He states he cannot seem to catch his breath. He has multiple admissions to this hospital for the same complaint. He denies any cough or wheezing. Not coughing up any phlegm or blood. There is no fever or chills. Apparently his saturations were low. The patient was last admitted back on April 11. He has a history of CAD aortic valve stenosis with previous bypass surgery and valve replacement chronic atrial fibrillation status post permanent pacemaker implantation left lower extremity DVT diastolic heart failure pulmonary hypertension and a host of other medical issues. In addition, he has a history of recurrent pleural effusions dating back to June 2017. He has had frequent thoracentesis. 4 Flonase typically transudate is been negative for malignancy. His most recent thoracentesis was done in February 22 of this year. In addition, the patient does have evidence of mediastinal adenopathy and recently my partner did a transbronchial needle aspiration of a precarinal node. It was negative for malignancy. 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 Review of Systems A 14 point review of system is positive for chronic shortness of breath on exertion. He is even short of breath at rest. He denies any chest pain or chest discomfort. He is not coughing and producing any phlegm. Not coughing up any blood. He denies any fever chills nausea vomiting or diarrhea. Past Medical History Past Medical History: Atrial Fibrillation, Coronary Artery Disease (CAD), Cancer , Chest Pain / Angina, Heart Failure, COPD, Deep Vein Thrombosis (DVT), GERD/ Reflux, Hyperlipidemia, Hypertension, Myocardial Infarction ([place]), Pneumonia, Prostate Disorder Additional Past Medical History / Comment(s): Home O2 at 2L/NC lately ATC, recurrent R pleural effusions, thoracic adenopathy, pneumonias, pneumonia with sepsis, bronchitis, bilateral lower leg edema/redness L lower leg, L leg DVT in 2006, chronic L leg pain/ neurological damage, BPH, prostrate cancer with surgery, constipation, recently had 4 teeth extracted, Last Myocardial Infarction Date:: 2005 History of Any Multi-Drug Resistant Organisms: None Reported Past Surgical History: Appendectomy, Cardiac Valve Replacement, Cholecystectomy , Heart Catheterization, Heart Catheterization With Stent, Hernia Repair, Pacemaker, Prostate Surgery Additional Past Surgical History / Comment(s): 2015 aortic valve replacement, bilateral cataracts removal, prostatectomy, penile implant x2, R sided thoracentesises, bilateral inguinal hernia repair, L leg dvt surgically removed , colonoscopies. Past Anesthesia/Blood Transfusion Reactions: Previous Problems w/ Anesthesia Additional Past Anesthesia/Blood Transfusion Reaction / Comment(s): "one time BP dropped too low" Date of Last Stent Placement:: 2005 Type of Cardiac Device: Permanent Pacemaker Device Placement Date:: 2004? Past Psychological History: Anxiety Additional Psychological History / Comment(s): Pt resides alone. He is originally from [place]. He has home O2 and lately has been wearing it at 2L/ [place] ATC. He is nearly done with home care thru [facility]. He drives. He uses no assistive device. Smoking Status: Former smoker Past Alcohol Use History: None Reported Additional Past Alcohol Use History / Comment(s): STARTED SMOKING AT AGE 19, SMOKED 1 PPD, QUIT 1962 Past Drug Use History: None Reported - Past Family History Brother(s) Family Medical History: Cancer Sister(s) Family Medical History: Cancer Father Family Medical History: Cancer Additional Family Medical History / Comment(s): Father had prostrate cancer. He had CAD/CABG. He at the age of 78yrs during coronary angioplasty. Mother Family Medical History: Myocardial Infarction ([place]) Additional Family Medical History / Comment(s): Mother had a [place] at the age of 35yrs. She had CABG. She lived to be 93 yrs old. Medications and Allergies Home Medications Medication Instructions Recorded Confirmed Type Carvedilol 25 mg PO DAILY 06/19/15 04/10/18 History Ferrous Sulfate [Iron (65 MG 325 mg PO DAILY 06/19/15 04/10/18 History Elemental)] oxyCODONE HCL 15 mg PO BID PRN 06/19/15 04/10/18 History LORazepam [Ativan] 0.5 mg PO QID PRN 07/28/16 04/10/18 History Ubidecarenone [Co Q-10] 200 mg PO DAILY 12/05/16 08/18/18 History Lovastatin [Mevacor] 20 mg PO HS 11/20/17 04/10/18 History Warfarin [Coumadin] 5 mg PO HS 11/20/17 04/10/18 History traZODone HCL 100 mg PO HS 11/20/17 04/10/18 History Furosemide [Lasix] 40 mg PO BID #60 tablet 11/21/17 04/10/18 Rx Polyethylene Glycol 3350 [Miralax] 17 gm PO DAILY powd.pack 02/07/18 04/10/18 Rx Lisinopril [Zestril] 2.5 mg PO DAILY 03/10/18 04/10/18 History Promethazine HCl 12.5 mg PO BID PRN 03/10/18 04/10/18 History Morphine Sulfate [Ms Contin] 60 mg PO Q12HR 04/01/18 04/10/18 History Multivitamins, Thera [Multivitamin 1 tab PO DAILY 04/01/18 04/10/18 History (formulary)] Pantoprazole [Protonix] 40 mg PO DAILY 04/01/18 04/10/18 History Sucralfate [Carafate] 1 gm PO BID 04/01/18 04/10/18 History Warfarin Sodium 2 mg PO HS 04/01/18 04/10/18 History Cefuroxime Axetil [Ceftin] 500 mg PO BID #10 tab 04/05/18 04/10/18 Rx Docusate [Colace] 100 mg PO BID cap 04/05/18 04/10/18 Rx Lactulose [Cephulac] 30 gm PO TID PRN ml 04/05/18 04/10/18 Rx Sennosides [Senokot] 8.6 mg PO DAILY PRN tab 04/05/18 04/10/18 Rx Budesonide-Formot 160-4.5 Mcg 2 puff INHALATION RT-BID 04/10/18 04/10/18 History [Symbicort 160-4.5 Mcg Inhaler] Ipratropium-Albuterol Nebulize 3 ml INHALATION RT-QID 04/10/18 04/10/18 History [Duoneb 0.5 mg-3 mg/3 ml Soln] predniSONE See Taper PO DIRECTED 04/10/18 04/10/18 History Allergies Allergy/AdvReac Type Severity Reaction Status Date / Time No Known Allergies Allergy Verified 04/10/18 13:00 Physical Exam Osteopathic Statement: *. No significant issues noted on an osteopathic structural exam other than those noted in the History and Physical/Consult. Vitals: Vital Signs Temp Pulse Pulse Resp BP BP Pulse Ox 04/11/18 07:59 68 04/11/18 07:48 66 04/11/18 06:14 97.7 F 64 16 152/72 99 04/10/18 23:00 97.6 F 62 16 136/61 99 04/10/18 20:06 65 04/10/18 19:57 60 04/10/18 15:38 97.9 F 61 18 144/74 99 04/10/18 15:07 97.8 F 62 18 153/65 94 L 04/10/18 14:51 62 18 153/65 94 L 04/10/18 13:08 60 16 154/64 94 L 04/10/18 12:23 66 04/10/18 12:05 60 Intake and Output 04/10/18 04/11/18 04/11/18 22:59 06:59 14:59 Output Total 1100 1000 Balance -1100 -1000 Output: Urine 1100 1000 Other: Voiding Method Toilet Urinal # Voids 1 Weight 77 kg No acute distress, oriented 3. Nasal O2 in place. HEENT examination is grossly unremarkable. Mucous membranes are moist. No oral lesions. Neck supple. Full range of motion. No adenopathy thyromegaly or neck vein distention. Cardiovascular examination reveals irregular rhythm rate. S1-S2 normal. No S3 or S4. A soft systolic murmur is noted. Lungs reveal diminished breath sounds on the right. There are rhonchi and crackles on the right side. Mild dullness on the right. Abdomen soft bowel sounds are heard. No masses or tenderness. Extremities are intact. No cyanosis clubbing or edema. Skin is without rash or lesion. Neurologic examination is brief but nonfocal. Results - Laboratory Findings CBC and BMP: 04/10/18 12:05 04/10/18 12:05 PT/INR, D-dimer PT 21.9 sec (9.0-12.0) H 04/10/18 12:05 INR 2.4 (<1.2) H 04/10/18 12:05 Abnormal lab findings: Abnormal Labs 04/10/18 04/10/18 04/10/18 12:05 12:05 12:05 RBC 2.71 L Hgb 9.1 L D Hct 26.3 L Neutrophils # 8.3 H Lymphocytes # 0.7 L PT INR Sodium 135 L Chloride 96 L BUN 50 H Glucose 122 H POC Glucose (mg/dL) Total Creatine Kinase <20 L 04/10/18 04/10/18 04/11/18 12:05 20:49 07:17 RBC Hgb Hct Neutrophils # Lymphocytes # PT 21.9 H INR 2.4 H Sodium Chloride BUN Glucose POC Glucose (mg/dL) 185 H 171 H Total Creatine Kinase Assessment and Plan Assessment: Acute on chronic hypoxemic respiratory failure, secondary to diastolic heart failure and recurrent right-sided pleural effusion. Multiple previous right-sided thoracentesis, with the fluid transudative in nature Stable loculated right-sided pleural effusion Assessment transbronchial needle aspiration of a precarinal node, negative for malignancy History of chronic atrial fibrillation Status post pacemaker insertion History of previous DVT, 2017 History of hypertension Hyperlipidemia CAD with previous bypass grafting Previous history of aortic valve replacement for aortic stenosis Prostate cancer Chronic pain syndrome Anxiety depression Plan: Plan dated 04/11/2018 The patient has had multiple right-sided thoracentesis. The patient may benefit from something more permanent such as a Pleurx catheter insertion. The patient's recent transbronchial needle aspiration of a precarinal node done by my partner was negative. The patient was just recently in the hospital having been admitted on April 01. We will continue to follow make appropriate recommendations. Time with Patient: Greater than 30
[2018-04-11 12:04] LABS: Glucose,Whole Blood 150 mg/dL (75-99)
--- NOTE | 2018-04-11 12:05 | P.HPIM ---
History of Present Illness H&P Date: 04/10/18 Chief Complaint: Shortness of breath Patient is a 82-year-old male with a known history of COPD, CHF with diastolic dysfunction and chronic hypoxic respiratory failure, history of I aortic valve replacement, DVT, hypertension, hyperlipidemia, history of ND and prostate disorder, BPH prostate cancer with surgery, coronary artery disease with history of stent placement, pacemaker placement and multiple other medical problems came to the hospital with complaints of worsening shortness of breath. Patient was recently discharged from the hospital and was treated for acute COPD and CHF exacerbation and hypoxic respiratory failure. Patient does have recurrent right-sided pleural effusion with multiple previous thoracentesis. Negative for malignancy. Patient recently had transbronchial needle aspiration of the lymph node recently. Pathology showed benign lymph node and mononuclear cells associated with hyperpigmentation consistent with paratracheal lymph node. Negative for malignancy. Patient otherwise denied any fever or chills. Patient was having worsening leg swelling. No headache or dizziness or lightheadedness. Patient says that he had nebulizer but does not have any medications solution with that. Patient came to ER for further evaluation. Denied any comes of chest pain. No nausea vomiting or abdominal pain. Chest x-ray showed cardiomegaly. Worsening obesity in the right lung base likely representing combination of pleural fluid and atelectasis. Pneumonia is not excluded. Review of Systems Constitutional: Patient denies any fever or chills . No generalized weakness or weight loss. Abdomen: Patient denied nausea vomiting and diarrhea and abdominal pain. Cardiovascular: Patient denies any chest pain or short of breath no palpitations. Respiratory: Cough without sputum production and shortness of breath. Neurologic: Patient denied any numbness or tingling headache. Musculoskeletal: Patient denies any complaints of joint swelling or deformity. Skin: Negative Psychiatric: Negative Endocrine: No heat or cold intolerance. No recent weight gain. Genitourinary: No dysuria or hematuria. All other 14 point ROS negative except the above Past Medical History Past Medical History: Atrial Fibrillation, Coronary Artery Disease (CAD), Cancer , Chest Pain / Angina, Heart Failure, COPD, Deep Vein Thrombosis (DVT), GERD/ Reflux, Hyperlipidemia, Hypertension, Myocardial Infarction (ND), Pneumonia, Prostate Disorder Additional Past Medical History / Comment(s): Home O2 at 2L/NC lately ATC, recurrent R pleural effusions, thoracic adenopathy, pneumonias, pneumonia with sepsis, bronchitis, bilateral lower leg edema/redness L lower leg, L leg DVT in 2007, chronic L leg pain/ neurological damage, BPH, prostrate cancer with surgery, constipation, recently had 4 teeth extracted, Last Myocardial Infarction Date:: 2005 History of Any Multi-Drug Resistant Organisms: None Reported Past Surgical History: Appendectomy, Cardiac Valve Replacement, Cholecystectomy , Heart Catheterization, Heart Catheterization With Stent, Hernia Repair, Pacemaker, Prostate Surgery Additional Past Surgical History / Comment(s): 2016 aortic valve replacement, bilateral cataracts removal, prostatectomy, penile implant x2, R sided thoracentesises, bilateral inguinal hernia repair, L leg dvt surgically removed , colonoscopies. Past Anesthesia/Blood Transfusion Reactions: Previous Problems w/ Anesthesia Additional Past Anesthesia/Blood Transfusion Reaction / Comment(s): "one time BP dropped too low" Date of Last Stent Placement:: 2005 Type of Cardiac Device: Permanent Pacemaker Device Placement Date:: 2004? Past Psychological History: Anxiety Additional Psychological History / Comment(s): Pt resides alone. He is originally from [facility]. He has home O2 and lately has been wearing it at 2L/ NC ATC. He is nearly done with home care thru [facility]. He drives. He uses no assistive device. Smoking Status: Former smoker Past Alcohol Use History: None Reported Additional Past Alcohol Use History / Comment(s): STARTED SMOKING AT AGE 19, SMOKED 1 PPD, QUIT 1962 Past Drug Use History: None Reported - Past Family History Brother(s) Family Medical History: Cancer Sister(s) Family Medical History: Cancer Father Family Medical History: Cancer Additional Family Medical History / Comment(s): Father had prostrate cancer. He had CAD/CABG. He at the age of 78yrs during coronary angioplasty. Mother Family Medical History: Myocardial Infarction (ND) Additional Family Medical History / Comment(s): Mother had a ND at the age of 35yrs. She had CABG. She lived to be 93 yrs old. Medications and Allergies Home Medications Medication Instructions Recorded Confirmed Type Carvedilol 25 mg PO DAILY 06/19/15 04/10/18 History Ferrous Sulfate [Iron (65 MG 325 mg PO DAILY 06/19/15 04/10/18 History Elemental)] oxyCODONE HCL 15 mg PO BID PRN 06/19/15 04/10/18 History LORazepam [Ativan] 0.5 mg PO QID PRN 07/28/16 04/10/18 History Ubidecarenone [Co Q-10] 200 mg PO DAILY 07/28/16 04/10/18 History Lovastatin [Mevacor] 20 mg PO HS 11/20/17 04/10/18 History Warfarin [Coumadin] 5 mg PO HS 11/20/17 04/10/18 History traZODone HCL 100 mg PO HS 11/20/17 04/10/18 History Furosemide [Lasix] 40 mg PO BID #60 tablet 11/21/17 04/10/18 Rx Polyethylene Glycol 3350 [Miralax] 17 gm PO DAILY powd.pack 02/07/18 04/10/18 Rx Lisinopril [Zestril] 2.5 mg PO DAILY 03/10/18 04/10/18 History Promethazine HCl 12.5 mg PO BID PRN 03/10/18 04/10/18 History Morphine Sulfate [Ms Contin] 60 mg PO Q12HR 04/01/18 04/10/18 History Multivitamins, Thera [Multivitamin 1 tab PO DAILY 04/01/18 04/10/18 History (formulary)] Pantoprazole [Protonix] 40 mg PO DAILY 04/01/18 04/10/18 History Sucralfate [Carafate] 1 gm PO BID 04/01/18 04/10/18 History Warfarin Sodium 2 mg PO HS 04/01/18 04/10/18 History Cefuroxime Axetil [Ceftin] 500 mg PO BID #10 tab 04/05/18 04/10/18 Rx Docusate [Colace] 100 mg PO BID cap 04/05/18 04/10/18 Rx Lactulose [Cephulac] 30 gm PO TID PRN ml 04/05/18 04/10/18 Rx Sennosides [Senokot] 8.6 mg PO DAILY PRN tab 04/05/18 04/10/18 Rx Budesonide-Formot 160-4.5 Mcg 2 puff INHALATION RT-BID 04/10/18 04/10/18 History [Symbicort 160-4.5 Mcg Inhaler] Ipratropium-Albuterol Nebulize 3 ml INHALATION RT-QID 04/10/18 04/10/18 History [Duoneb 0.5 mg-3 mg/3 ml Soln] predniSONE See Taper PO DIRECTED 04/10/18 04/10/18 History Allergies Allergy/AdvReac Type Severity Reaction Status Date / Time No Known Allergies Allergy Verified 04/10/18 13:00 Physical Exam Vitals: Vital Signs Temp Pulse Pulse Resp BP BP Pulse Ox 04/11/18 07:59 68 04/11/18 07:48 66 04/11/18 06:14 97.7 F 64 16 152/72 99 04/10/18 23:00 97.6 F 62 16 136/61 99 04/10/18 20:06 65 04/10/18 19:57 60 04/10/18 15:38 97.9 F 61 18 144/74 99 04/10/18 15:07 97.8 F 62 18 153/65 94 L 04/10/18 14:51 62 18 153/65 94 L 04/10/18 13:08 60 16 154/64 94 L 04/10/18 12:23 66 04/10/18 12:05 60 Intake and Output 04/10/18 04/11/18 04/11/18 22:59 06:59 14:59 Output Total 1100 1000 Balance -1100 -1000 Output: Urine 1100 1000 Other: Voiding Method Toilet Urinal # Voids 1 Weight 77 kg PHYSICAL EXAMINATION: Patient is lying in the bed comfortably, no acute distress, awake alert and oriented.. HEENT: Normocephalic. Neck is supple. Pupils reactive. Nostrils clear. Oral cavity is moist. Ears reveal no drainage. Neck reveals no JVD, carotid bruits, or thyromegaly. CHEST EXAMINATION: Trachea is central. Symmetrical expansion. Bilateral diffuse rhonchi and crackles at the right base and expiratory wheezing. CARDIAC: Normal S1, S2 with no gallops. No murmurs ABDOMEN: Soft. Bowel sounds normal. No organomegaly. No abdominal bruits. Extremities: 2+ edema. No clubbing or cyanosis Neurologically awake, alert, oriented x3 with well-coordinated movements. No focal deficits noted Skin: No rash or skin lesions. Psychiatric: Coperative. Nonsuicidal Musculoskeletal: No joint swelling or deformity. Normal range of motion. Results CBC & Chem 7: 04/10/18 12:05 04/10/18 12:05 Labs: Abnormal Lab Results - Last 24 Hours (Table) 04/10/18 04/10/18 04/10/18 Range/Units 12:05 12:05 12:05 RBC 2.71 L (4.30-5.90) m/uL Hgb 9.1 L D (13.0-17.5) gm/dL Hct 26.3 L (39.0-53.0) % Neutrophils # 8.3 H (1.3-7.7) k/uL Lymphocytes # 0.7 L (1.0-4.8) k/uL PT (9.0-12.0) sec INR (<1.2) Sodium 135 L (137-145) mmol/L Chloride 96 L (98-107) mmol/L BUN 50 H (9-20) mg/dL Glucose 122 H (74-99) mg/dL POC Glucose (mg/dL) (75-99) mg/dL Total Creatine Kinase <20 L (55-170) U/L 04/10/18 04/10/18 04/11/18 Range/Units 12:05 20:49 07:17 RBC (4.30-5.90) m/uL Hgb (13.0-17.5) gm/dL Hct (39.0-53.0) % Neutrophils # (1.3-7.7) k/uL Lymphocytes # (1.0-4.8) k/uL PT 21.9 H (9.0-12.0) sec INR 2.4 H (<1.2) Sodium (137-145) mmol/L Chloride (98-107) mmol/L BUN (9-20) mg/dL Glucose (74-99) mg/dL POC Glucose (mg/dL) 185 H 171 H (75-99) mg/dL Total Creatine Kinase (55-170) U/L Thrombosis Risk Factor Assmnt - DVT/VTE Prophylaxis DVT/VTE Prophylaxis: Pharmacologic Prophylaxis ordered - Choose All That Apply Each Risk Factor Represents 3 Points: Age 75 years or older Thrombosis Risk Factor Assessment Total Risk Factor Score: 3 Thrombosis Risk Factor Assessment Level: Moderate Risk Assessment and Plan Assessment: Acute on chronic CHF with diastolic dysfunction. Acute COPD exacerbation Acute on chronic hypoxic respiratory failure secondary to COPD and CHF exacerbation along with right-sided pleural effusion Recurrent right-sided loculated pleural effusion and history of multiple thoracentesis. Negative for magnesium Recent transbronchial needle aspiration due to paratracheal lymphadenopathy. Negative for malignancy Chronic afibrillation on anticoagulation with Coumadin History of pacemaker placement History of DVT Hypertension Hyperlipidemia Prostate cancer status post surgery Chronic pain syndrome Anxiety and depression Status post bypass grafting for CAD and aortic valve replacement for aortic valve stenosis Plan: Patient will be continued on IV Lasix 40 m twice a day along with IV steroids and breathing treatments. Continue with Coumadin dosing and follow up closely. Continue the pain management and medications and follow. further recommendations based on the clinical course. Prognosis is guarded. Time with Patient: Greater than 30
[2018-04-11] MEDS: MULTIVITAMINS, THERA 1 EACH TAB PO SCH (12:46)
[2018-04-11] MEDS: LORazepam 0.5 MG TAB PO PRN ×2 (14:30→20:50)
[2018-04-11 16:33] LABS: Glucose,Whole Blood 178 mg/dL (75-99)
[2018-04-11] MEDS: SYMBICORT 160-4.5 MCG INHALER INHALATION SCH (20:04)
[2018-04-11 20:27] LABS: Glucose,Whole Blood 187 mg/dL (75-99)
[2018-04-11] MEDS: ATORVASTATIN 10 MG TAB PO SCH (20:46)
[2018-04-11] MEDS: WARFARIN 2 MG TAB PO SCH (20:47)
[2018-04-11] MEDS: traZODone HCL 100 MG TAB PO SCH (20:47)
[2018-04-11] MEDS: WARFARIN 5 MG TAB PO SCH (20:47)
[2018-04-11] MEDS: methylPREDNISolone SOD SUCCI 40 MG/ML 1 ML VIAL IV SCH (20:53)
--- NOTE | 2018-04-11 22:42 | P.PN ---
Subjective Progress Note Date: 04/11/18 Principal diagnosis: Acute CHF and COPD exacerbation with recurrent right-sided pleural effusion Patient is a 82-year-old male with a known history of COPD, CHF with diastolic dysfunction and chronic hypoxic respiratory failure, history of I aortic valve replacement, DVT, hypertension, hyperlipidemia, history of OH and prostate disorder, BPH prostate cancer with surgery, coronary artery disease with history of stent placement, pacemaker placement and multiple other medical problems came to the hospital with complaints of worsening shortness of breath. Patient was recently discharged from the hospital and was treated for acute COPD and CHF exacerbation and hypoxic respiratory failure. Patient does have recurrent right-sided pleural effusion with multiple previous thoracentesis. Negative for malignancy. Patient recently had transbronchial needle aspiration of the lymph node recently. Pathology showed benign lymph node and mononuclear cells associated with hyperpigmentation consistent with paratracheal lymph node. Negative for malignancy. Patient otherwise denied any fever or chills. Patient was having worsening leg swelling. No headache or dizziness or lightheadedness. Patient says that he had nebulizer but does not have any medications solution with that. Patient came to ER for further evaluation. Denied any comes of chest pain. No nausea vomiting or abdominal pain. Chest x-ray showed cardiomegaly. Worsening opacity in the right lung base likely representing combination of pleural fluid and atelectasis. Pneumonia is not excluded. 04/11/2018 Patient says that his breathing is slightly better today. No complaints of chest pain. Leg swelling improved. Patient is being continued on IV diuresis and we will change to oral tomorrow. Recent bronchoscopy and biopsy of the lymph node showed no malignancy. Pulmonary is following and recommends pleurodesis due to recurrent right-sided loculated pleural effusion. Patient was also recommended to elevate legs when lying on bed. Otherwise no fever no chills. All other review of systems negative except above Current medications reviewed Objective - Vital Signs Vital signs: Vital Signs Temp 97.7 F 04/11/18 06:14 Pulse 68 04/11/18 07:59 Resp 16 04/11/18 06:14 BP 152/72 04/11/18 06:14 Pulse Ox 99 04/11/18 06:14 Intake & Output 04/10/18 04/11/18 04/11/18 18:59 06:59 18:59 Output Total 2100 Balance -2100 Weight 77.111 kg 77 kg Output: Urine 2100 Other: Voiding Method Toilet Toilet Urinal Urinal # Voids 1 - Exam PHYSICAL EXAMINATION: Patient is lying in the bed comfortably, no acute distress, awake alert and oriented.. HEENT: Normocephalic. Neck is supple. Pupils reactive. Nostrils clear. Oral cavity is moist. Ears reveal no drainage. Neck reveals no JVD, carotid bruits, or thyromegaly. CHEST EXAMINATION: Trachea is central. Symmetrical expansion. Bilateral diffuse rhonchi and crackles at the right base and expiratory wheezing. CARDIAC: Normal S1, S2 with no gallops. No murmurs ABDOMEN: Soft. Bowel sounds normal. No organomegaly. No abdominal bruits. Extremities: 2+ edema. No clubbing or cyanosis Neurologically awake, alert, oriented x3 with well-coordinated movements. No focal deficits noted Skin: No rash or skin lesions. Psychiatric: Coperative. Nonsuicidal Musculoskeletal: No joint swelling or deformity. Normal range of motion. - Labs CBC & Chem 7: 04/10/18 12:05 04/10/18 12:05 Labs: Abnormal Lab Results - Last 24 Hours (Table) 04/10/18 04/10/18 04/10/18 Range/Units 12:05 12:05 12:05 RBC 2.71 L (4.30-5.90) m/uL Hgb 9.1 L D (13.0-17.5) gm/dL Hct 26.3 L (39.0-53.0) % Neutrophils # 8.3 H (1.3-7.7) k/uL Lymphocytes # 0.7 L (1.0-4.8) k/uL PT (9.0-12.0) sec INR (<1.2) Sodium 135 L (137-145) mmol/L Chloride 96 L (98-107) mmol/L BUN 50 H (9-20) mg/dL Glucose 122 H (74-99) mg/dL POC Glucose (mg/dL) (75-99) mg/dL Total Creatine Kinase <20 L (55-170) U/L 04/10/18 04/10/18 04/11/18 Range/Units 12:05 20:49 07:17 RBC (4.30-5.90) m/uL Hgb (13.0-17.5) gm/dL Hct (39.0-53.0) % Neutrophils # (1.3-7.7) k/uL Lymphocytes # (1.0-4.8) k/uL PT 21.9 H (9.0-12.0) sec INR 2.4 H (<1.2) Sodium (137-145) mmol/L Chloride (98-107) mmol/L BUN (9-20) mg/dL Glucose (74-99) mg/dL POC Glucose (mg/dL) 185 H 171 H (75-99) mg/dL Total Creatine Kinase (55-170) U/L 04/11/18 Range/Units 12:01 RBC (4.30-5.90) m/uL Hgb (13.0-17.5) gm/dL Hct (39.0-53.0) % Neutrophils # (1.3-7.7) k/uL Lymphocytes # (1.0-4.8) k/uL PT (9.0-12.0) sec INR (<1.2) Sodium (137-145) mmol/L Chloride (98-107) mmol/L BUN (9-20) mg/dL Glucose (74-99) mg/dL POC Glucose (mg/dL) 150 H (75-99) mg/dL Total Creatine Kinase (55-170) U/L Assessment and Plan Assessment: Acute on chronic CHF with diastolic dysfunction. Acute COPD exacerbation Acute on chronic hypoxic respiratory failure secondary to COPD and CHF exacerbation along with right-sided pleural effusion Recurrent right-sided loculated pleural effusion and history of multiple thoracentesis. Negative for malignancy Recent transbronchial needle aspiration due to paratracheal lymphadenopathy. Negative for malignancy Chronic afibrillation on anticoagulation with Coumadin History of pacemaker placement History of DVT Hypertension Hyperlipidemia Prostate cancer status post surgery Chronic pain syndrome Anxiety and depression Status post bypass grafting for CAD and aortic valve replacement for aortic valve stenosis Plan: Patient will be continued on IV Lasix 40 m twice a day along with IV steroids and breathing treatments. Continue with Coumadin dosing and follow up closely. Continue the pain management and medications and follow. further recommendations based on the clinical course. Prognosis is guarded. Time with Patient: Greater than 30
[2018-04-12] MEDS: methylPREDNISolone SOD SUCCI 40 MG/ML 1 ML VIAL IV SCH ×3 (06:40→21:02)
[2018-04-12] MEDS: FUROSEMIDE 10 MG/ML 4 ML VIAL IV SCH ×2 (06:41→17:53)
[2018-04-12 07:23] LABS: Glucose,Whole Blood 131 mg/dL (75-99)
[2018-04-12] MEDS: IPRATROPIUM-ALBUTEROL 3 ML NEB INHALATION SCH ×4 (07:45→19:41)
[2018-04-12] MEDS: SYMBICORT 160-4.5 MCG INHALER INHALATION SCH ×2 (07:45→19:41)
[2018-04-12 08:05] LABS: Basophils % (A) 0 %; Eosinophils % (A) 0 %; HCT 28.9 % (39.0-53.0); HGB 9.8 gm/dL (13.0-17.5); Lymphocytes # (A) 0.8 k/uL (1.0-4.8); Lymphocytes % (A) 5 %; MCH 33.3 pg (25.0-35.0); MCV 97.9 fL (80.0-100.0); Mean Platelet Volume 7.7; Monocytes # (A) 0.9 k/uL (0-1.0); Monocytes % (A) 6 %; Neutrophils # (A) 13.6 k/uL (1.3-7.7); Neutrophils % (A) 87 %; Platelet Count 258 k/uL (150-450); RBC 2.95 m/uL (4.30-5.90); RDW 14.2 % (11.5-15.5); WBC 15.6 k/uL (3.8-10.6)
[2018-04-12 08:23] LABS: Potassium 4.3 mmol/L (3.5-5.1)
[2018-04-12] MEDS: LISINOPRIL 2.5 MG TAB PO SCH (08:34)
[2018-04-12] MEDS: DOCUSATE 100 MG CAP PO SCH ×2 (08:34→21:03)
[2018-04-12] MEDS: CARVEDILOL 12.5 MG TAB PO SCH (08:34)
[2018-04-12] MEDS: SUCRALFATE 1 GM TAB PO SCH ×2 (08:34→21:02)
[2018-04-12] MEDS: FERROUS SULFATE 325 MG TAB PO SCH (08:35)
[2018-04-12] MEDS: PANTOPRAZOLE 40 MG TABLET PO SCH (08:35)
[2018-04-12] MEDS: POLYETHYLENE GLYCOL 3350 17 GM POWD.PACK PO SCH (08:35)
[2018-04-12] MEDS: INSULIN ASPART 100 UNIT/ML 1 ML 10 ML VIAL SQ SCH ×4 (08:35→21:03)
[2018-04-12] MEDS: MORPHINE SULFATE ER 60 MG TABLET PO SCH ×2 (08:43→21:03)
[2018-04-12 11:49] LABS: Prothrombin Time 27.2 sec (9.0-12.0)
[2018-04-12 11:59] LABS: Glucose,Whole Blood 122 mg/dL (75-99)
[2018-04-12] MEDS: MULTIVITAMINS, THERA 1 EACH TAB PO SCH (12:48)
[2018-04-12] MEDS: LORazepam 0.5 MG TAB PO PRN ×2 (12:52→21:08)
[2018-04-12] MEDS: WARFARIN 5 MG TAB PO SCH (13:45)
[2018-04-12] MEDS: WARFARIN 2 MG TAB PO SCH (13:45)
--- NOTE | 2018-04-12 14:53 | P.PN ---
Subjective Progress Note Date: 04/12/18 Principal diagnosis: Shortness of breath, recurrent right-sided pleural effusion Pulmonary consultation dated 04/11/2018 82-year-old male who presented to the emergency room yesterday on April 10 with complaints of increasing shortness of breath. Minimal activity causes the patient to become short of breath. He states he cannot seem to catch his breath. He has multiple admissions to this hospital for the same complaint. He denies any cough or wheezing. Not coughing up any phlegm or blood. There is no fever or chills. Apparently his saturations were low. The patient was last admitted back on April 11. He has a history of CAD aortic valve stenosis with previous bypass surgery and valve replacement chronic atrial fibrillation status post permanent pacemaker implantation left lower extremity DVT diastolic heart failure pulmonary hypertension and a host of other medical issues. In addition, he has a history of recurrent pleural effusions dating back to June 2017. He has had frequent thoracentesis. 4 Flonase typically transudate is been negative for malignancy. His most recent thoracentesis was done in February 22 of this year. In addition, the patient does have evidence of mediastinal adenopathy and recently my partner did a transbronchial needle aspiration of a precarinal node. It was negative for malignancy. 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 The patient was seen today 04/12/2018 in follow-up on the regular medical floor. He is currently sitting up in a chair at the bedside. He is awake and alert in no acute distress. He is still dyspneic with minimal exertion otherwise stable at rest. He is maintaining good O2 saturations in the 90s on 2 L/m per nasal cannula. White count 15.6. Hemoglobin 9.8. INR 3.0. Creatinine 1.00. Most recent thoracentesis fluid revealed a LDH of 124, protein 2.3. The patient has also recently undergone recent FNA of the mediastinal lymph node by Dr. Ovalle. This was reported as benign. Objective - Vital Signs Vital signs: Vital Signs Temp 97.5 F L 04/12/18 07:00 Pulse 78 04/12/18 12:04 Resp 16 04/12/18 08:00 BP 134/63 04/12/18 07:00 Pulse Ox 99 04/12/18 07:00 Intake & Output 04/11/18 04/12/18 04/12/18 18:59 06:59 18:59 Intake Total 720 Output Total 1200 800 Balance -1200 -800 720 Weight 77 kg Intake: Oral 720 Output: Urine 1200 800 Other: Voiding Method Toilet Toilet Urinal Urinal # Voids 2 # Bowel Movements 0 - Exam GENERAL EXAM: Alert, active, comfortable in no apparent distress. HEAD: Normocephalic. EYES: Normal reaction of pupils, equal size. NOSE: Clear with pink turbinates. THROAT: No erythema or exudates. NECK: No masses, no JVD. CHEST: No chest wall deformity. LUNGS: Equal air entry with pickles in the right posterior base. Diminished. Dullness. CVS: S1 and S2 normal with no audible murmur, regular rhythm. ABDOMEN: No hepatosplenomegaly, normal bowel sounds, no guarding or rigidity. SPINE: No scoliosis or deformity SKIN: No rashes CENTRAL NERVOUS SYSTEM: No focal deficits, tone is normal in all 4 extremities. EXTREMITIES: There is no peripheral edema. No clubbing, no cyanosis. Peripheral pulses are intact. - Labs CBC & Chem 7: 04/12/18 07:50 04/12/18 07:50 Labs: Abnormal Lab Results - Last 24 Hours (Table) 04/11/18 04/11/18 04/12/18 Range/Units 16:30 20:26 07:08 WBC (3.8-10.6) k/uL RBC (4.30-5.90) m/uL Hgb (13.0-17.5) gm/dL Hct (39.0-53.0) % Neutrophils # (1.3-7.7) k/uL Lymphocytes # (1.0-4.8) k/uL PT (9.0-12.0) sec INR (<1.2) Sodium (137-145) mmol/L Chloride (98-107) mmol/L Carbon Dioxide (22-30) mmol/L BUN (9-20) mg/dL Glucose (74-99) mg/dL POC Glucose (mg/dL) 178 H 187 H 131 H (75-99) mg/dL 04/12/18 04/12/18 04/12/18 Range/Units 07:50 07:50 09:51 WBC 15.6 H (3.8-10.6) k/uL RBC 2.95 L (4.30-5.90) m/uL Hgb 9.8 L (13.0-17.5) gm/dL Hct 28.9 L (39.0-53.0) % Neutrophils # 13.6 H (1.3-7.7) k/uL Lymphocytes # 0.8 L (1.0-4.8) k/uL PT 27.2 H (9.0-12.0) sec INR 3.0 H (<1.2) Sodium 136 L (137-145) mmol/L Chloride 95 L (98-107) mmol/L Carbon Dioxide 33 H (22-30) mmol/L BUN 50 H (9-20) mg/dL Glucose 124 H (74-99) mg/dL POC Glucose (mg/dL) (75-99) mg/dL 04/12/18 Range/Units 11:53 WBC (3.8-10.6) k/uL RBC (4.30-5.90) m/uL Hgb (13.0-17.5) gm/dL Hct (39.0-53.0) % Neutrophils # (1.3-7.7) k/uL Lymphocytes # (1.0-4.8) k/uL PT (9.0-12.0) sec INR (<1.2) Sodium (137-145) mmol/L Chloride (98-107) mmol/L Carbon Dioxide (22-30) mmol/L BUN (9-20) mg/dL Glucose (74-99) mg/dL POC Glucose (mg/dL) 122 H (75-99) mg/dL Assessment and Plan Assessment: Impression: #1 Acute on chronic hypoxic respiratory failure secondary to an acute exacerbation of diastolic congestive heart failure, recurrent right-sided pleural effusion and multiple previous thoracentesis most recently 03/13/2018 with 800 ML serosanguineous fluid removed. Negative for malignancy. Transudative Total protein 2.3. LDH 124. The patient had also undergone a FNA of the pericarinal lymph nodes which are reported as benign. #2 Acute on chronic diastolic congestive heart failure. Preserved left ventricular systolic function with ejection fraction 50-55%. #3 History of stable, loculated right pleural effusion. #4 Pericarinal lymph node measuring 2.5 x 1.7 cm, abnormal anterior superior mediastinal lymph node measuring 1.8 x 1.4 cm. Status post biopsy, benign. #5 Chronic atrial fibrillation, anticoagulated with warfarin. #6 Cardiac arrhythmia requiring permanent pacemaker implantation. #7 Remote history of DVT in 2006. #8 Hypertension. #9 Hyperlipidemia. #10 Coronary artery disease status post coronary artery bypass grafting. #11 Aortic valve stenosis status post aortic valve replacement utilizing a bioprosthetic aortic valve. #12 History of prostate cancer. #13 Chronic pain syndrome. #14 Anxiety/depression. Plan: The patient was seen and evaluated by Dr. Ovalle. Chest x-ray, previous CAT scans and labs all reviewed. The patient has undergone multiple previous thoracentesis. Fluid has been negative for malignancy. Patient also had undergone bronchoscopy with FNA of the pericarinal lymph node which is also benign. We will consult cardiothoracic surgery to determine if the patient may benefit from a Pleurx catheter or perhaps thorascopic evaluation and biopsy. The patient is currently on warfarin with an INR of 3.0. We will continue to follow. I, the cosigning physician, performed a history & physical examination of the patient. Lungs sounds with crackles in the right posterior base and diminished. Maintaining good O2 saturations in the 90s on 2 L/m per nasal cannula. I discussed the assessment and plan of care with my nurse practitioner, Margarita Soto. I attest to the above note as dictated by her.
--- NOTE | 2018-04-12 16:11 | CDI ---
Last Revision, July 2017 Documentation Clarification Form Date: 04/12/2018 4:06:52 PM From: Bev Hill RN, CCDS Admit Date: 04/10/2018 2:02:00 PM Patient Name: Felton Mckee Visit Number: [id number] ATTENTION: The Clinical Documentation Specialists (CDI) and [facility] Coding Staff appreciate your assistance in clarifying documentation. Please respond to the clarification below the line at the bottom and electronically sign. The CDI & [facility] Coding staff will review the response and follow-up if needed. Please note: Queries are made part of the Legal Health Record. If you have any questions, please contact the author of this message via ITS. Drew Jones MD A diagnosis of anemia lacks specificity to accurately reflect your patients severity of condition and clarification is needed. History/Risk Factors: Cancer, CAD Clinical indicators: 04/10 EC Note: "82 male the ER with shortness of breath, new anemia with COPD exacerbation and hypoxia." Hemoglobin: 9.1/9.8 Hematocrit: 26.3/28.9 Treatment: Feosol 325 mg Po QD Po Coumadin In order to capture the severity of condition, please clarify the type of anemia and etiology if known: Chronic blood loss anemia Iron deficiency anemia Anemia due to malignancy Nutritional anemia Anemia of chronic disease Unable to determine Other, please specify Please continue to document in your progress notes and discharge summary in order to capture severity of illness and risk of mortality. Include clinical findings that support your diagnosis. Unable to determine MTDD
[2018-04-12 17:16] LABS: Glucose,Whole Blood 150 mg/dL (75-99)
--- NOTE | 2018-04-12 18:21 | P.PN ---
Subjective Progress Note Date: 04/12/18 Progress note being dictated for Dr. Robbins Interval history:Patient is a 82-year-old male with a known history of COPD, CHF with diastolic dysfunction and chronic hypoxic respiratory failure, history of I aortic valve replacement, DVT, hypertension, hyperlipidemia, history of DE and prostate disorder, BPH prostate cancer with surgery, coronary artery disease with history of stent placement, pacemaker placement and multiple other medical problems came to the hospital with complaints of worsening shortness of breath. Patient was recently discharged from the hospital and was treated for acute COPD and CHF exacerbation and hypoxic respiratory failure. Patient does have recurrent right-sided pleural effusion with multiple previous thoracentesis. Negative for malignancy. Patient recently had transbronchial needle aspiration of the lymph node recently. Pathology showed benign lymph node and mononuclear cells associated with hyperpigmentation consistent with paratracheal lymph node. Negative for malignancy. Patient otherwise denied any fever or chills. Patient was having worsening leg swelling. No headache or dizziness or lightheadedness. Patient says that he had nebulizer but does not have any medications solution with that. Patient came to ER for further evaluation. Denied any comes of chest pain. No nausea vomiting or abdominal pain. Chest x-ray showed cardiomegaly. Worsening opacity in the right lung base likely representing combination of pleural fluid and atelectasis. Pneumonia is not excluded. 04/11/2018 Patient says that his breathing is slightly better today. No complaints of chest pain. Leg swelling improved. Patient is being continued on IV diuresis and we will change to oral tomorrow. Recent bronchoscopy and biopsy of the lymph node showed no malignancy. Pulmonary is following and recommends pleurodesis due to recurrent right-sided loculated pleural effusion. Patient was also recommended to elevate legs when lying on bed. Otherwise no fever no chills. All other review of systems negative except above Current medications reviewed 04/12/2018 Complains of exertional dyspnea. Maintaining O2 sats in the high 90s on 2 L nasal cannula. Afebrile, WBC 15.6. Hemoglobin 9.8. INR 3. Recurrent pleural effusions, multiple thoracentesis -cultures reported as negative for malignancy, in a patient with CHF. Cardiothoracic surgery consulted for potential Pleurx catheter. Denies chest pain, palpitations. Objective - Vital Signs Vital signs: Vital Signs Temp 98.5 F 04/12/18 15:00 Pulse 76 04/12/18 16:10 Resp 16 04/12/18 15:02 BP 102/48 04/12/18 15:00 Pulse Ox 98 04/12/18 15:00 Intake & Output 04/11/18 04/12/18 04/12/18 18:59 06:59 18:59 Intake Total 720 Output Total 1200 800 Balance -1200 -800 720 Weight 77 kg Intake: Oral 720 Output: Urine 1200 800 Other: Voiding Method Toilet Toilet Urinal Urinal # Voids 2 # Bowel Movements 0 - Exam PHYSICAL EXAMINATION: Patient is sitting up in chair, no acute distress, awake alert and oriented. HEENT: Normocephalic. Neck is supple. Pupils reactive. Nostrils clear. Oral cavity is moist. Neck reveals no JVD, carotid bruits, or thyromegaly. CHEST EXAMINATION: Trachea is central. Symmetrical expansion. Bilateral diffuse rhonchi and crackles,right base dullness CARDIAC: Normal S1, S2 with no gallops. No murmurs ABDOMEN: Soft. Bowel sounds normal. No organomegaly. No abdominal bruits. Extremities: 2+ edema. No clubbing or cyanosis Neurologically awake, alert, oriented x3 with well-coordinated movements. No focal deficits noted Skin: No rash or skin lesions. Psychiatric: Coperative. Nonsuicidal Musculoskeletal: No joint swelling or deformity. Normal range of motion. - Labs CBC & Chem 7: 04/12/18 07:50 04/12/18 07:50 Labs: Abnormal Lab Results - Last 24 Hours (Table) 04/11/18 04/12/18 04/12/18 Range/Units 20:26 07:08 07:50 WBC 15.6 H (3.8-10.6) k/uL RBC 2.95 L (4.30-5.90) m/uL Hgb 9.8 L (13.0-17.5) gm/dL Hct 28.9 L (39.0-53.0) % Neutrophils # 13.6 H (1.3-7.7) k/uL Lymphocytes # 0.8 L (1.0-4.8) k/uL PT (9.0-12.0) sec INR (<1.2) Sodium (137-145) mmol/L Chloride (98-107) mmol/L Carbon Dioxide (22-30) mmol/L BUN (9-20) mg/dL Glucose (74-99) mg/dL POC Glucose (mg/dL) 187 H 131 H (75-99) mg/dL 04/12/18 04/12/18 04/12/18 Range/Units 07:50 09:51 11:53 WBC (3.8-10.6) k/uL RBC (4.30-5.90) m/uL Hgb (13.0-17.5) gm/dL Hct (39.0-53.0) % Neutrophils # (1.3-7.7) k/uL Lymphocytes # (1.0-4.8) k/uL PT 27.2 H (9.0-12.0) sec INR 3.0 H (<1.2) Sodium 136 L (137-145) mmol/L Chloride 95 L (98-107) mmol/L Carbon Dioxide 33 H (22-30) mmol/L BUN 50 H (9-20) mg/dL Glucose 124 H (74-99) mg/dL POC Glucose (mg/dL) 122 H (75-99) mg/dL 04/12/18 Range/Units 17:13 WBC (3.8-10.6) k/uL RBC (4.30-5.90) m/uL Hgb (13.0-17.5) gm/dL Hct (39.0-53.0) % Neutrophils # (1.3-7.7) k/uL Lymphocytes # (1.0-4.8) k/uL PT (9.0-12.0) sec INR (<1.2) Sodium (137-145) mmol/L Chloride (98-107) mmol/L Carbon Dioxide (22-30) mmol/L BUN (9-20) mg/dL Glucose (74-99) mg/dL POC Glucose (mg/dL) 150 H (75-99) mg/dL Assessment and Plan Assessment: Acute on chronic CHF with diastolic dysfunction. Acute COPD exacerbation Acute on chronic hypoxic respiratory failure secondary to COPD and CHF exacerbation along with right-sided pleural effusion Recurrent right-sided loculated pleural effusion and history of multiple thoracentesis. Negative for malignancy Recent transbronchial needle aspiration due to paratracheal lymphadenopathy. Negative for malignancy Chronic afibrillation on anticoagulation with Coumadin History of pacemaker placement, aortic valve replacement with bioprosthetic aortic valve History of DVT Hypertension Hyperlipidemia Prostate cancer status post surgery Chronic pain syndrome Anxiety and depression Status post bypass grafting for CAD and aortic valve replacement for aortic valve stenosis Plan: Continue on current medication regime ,monitoring and symptomatic treatment. Maintain nebulized bronchodilators, systemic steroids, and Lasix. Cardiothoracic surgery consulted, possible Pleurx catheter. The impression and plan of care has been dictated as directed. : I performed a history and examination of this patient, discussed the same with the dictator. I agree with the dictator's note ,documented as a scribe. Any additional findings or plans will be noted.
[2018-04-12 20:40] LABS: Glucose,Whole Blood 165 mg/dL (75-99)
[2018-04-12] MEDS ORDERED: WARFARIN 5 MG TAB PO SCH (21:00)
[2018-04-12] MEDS: ATORVASTATIN 10 MG TAB PO SCH (21:02)
[2018-04-12] MEDS: traZODone HCL 100 MG TAB PO SCH (21:03)
[2018-04-13] MEDS: methylPREDNISolone SOD SUCCI 40 MG/ML 1 ML VIAL IV SCH ×3 (06:26→20:49)
[2018-04-13] MEDS: FUROSEMIDE 10 MG/ML 4 ML VIAL IV SCH ×2 (06:28→17:45)
[2018-04-13 07:20] LABS: Glucose,Whole Blood 138 mg/dL (75-99)
[2018-04-13] MEDS: INSULIN ASPART 100 UNIT/ML 1 ML 10 ML VIAL SQ SCH ×4 (08:04→20:49)
[2018-04-13] MEDS: DOCUSATE 100 MG CAP PO SCH ×2 (08:09→20:48)
[2018-04-13] MEDS: CARVEDILOL 12.5 MG TAB PO SCH (08:09)
[2018-04-13] MEDS: MORPHINE SULFATE ER 60 MG TABLET PO SCH ×2 (08:10→20:48)
[2018-04-13] MEDS: FERROUS SULFATE 325 MG TAB PO SCH (08:10)
[2018-04-13] MEDS: LISINOPRIL 2.5 MG TAB PO SCH (08:10)
[2018-04-13] MEDS: PANTOPRAZOLE 40 MG TABLET PO SCH (08:11)
[2018-04-13] MEDS: SUCRALFATE 1 GM TAB PO SCH ×2 (08:12→20:48)
[2018-04-13] MEDS: POLYETHYLENE GLYCOL 3350 17 GM POWD.PACK PO SCH (08:12)
[2018-04-13] MEDS: SYMBICORT 160-4.5 MCG INHALER INHALATION SCH ×2 (09:02→19:54)
[2018-04-13] MEDS: IPRATROPIUM-ALBUTEROL 3 ML NEB INHALATION SCH ×4 (09:02→19:54)
[2018-04-13 12:11] LABS: INR 3.8 (<1.2); Prothrombin Time 33.6 sec (9.0-12.0)
[2018-04-13] MEDS: MULTIVITAMINS, THERA 1 EACH TAB PO SCH (12:14)
[2018-04-13 12:17] LABS: Glucose,Whole Blood 141 mg/dL (75-99)
--- NOTE | 2018-04-13 14:10 | P.PN ---
Subjective Progress Note Date: 04/13/18 Principal diagnosis: Shortness of breath, recurrent right-sided pleural effusion Pulmonary consultation dated 04/11/2018 82-year-old male who presented to the emergency room yesterday on April 10 with complaints of increasing shortness of breath. Minimal activity causes the patient to become short of breath. He states he cannot seem to catch his breath. He has multiple admissions to this hospital for the same complaint. He denies any cough or wheezing. Not coughing up any phlegm or blood. There is no fever or chills. Apparently his saturations were low. The patient was last admitted back on April 11. He has a history of CAD aortic valve stenosis with previous bypass surgery and valve replacement chronic atrial fibrillation status post permanent pacemaker implantation left lower extremity DVT diastolic heart failure pulmonary hypertension and a host of other medical issues. In addition, he has a history of recurrent pleural effusions dating back to June 2017. He has had frequent thoracentesis. 4 Flonase typically transudate is been negative for malignancy. His most recent thoracentesis was done in February 22 of this year. In addition, the patient does have evidence of mediastinal adenopathy and recently my partner did a transbronchial needle aspiration of a precarinal node. It was negative for malignancy. 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 The patient was seen today 04/12/2018 in follow-up on the regular medical floor. He is currently sitting up in a chair at the bedside. He is awake and alert in no acute distress. He is still dyspneic with minimal exertion otherwise stable at rest. He is maintaining good O2 saturations in the 90s on 2 L/m per nasal cannula. White count 15.6. Hemoglobin 9.8. INR 3.0. Creatinine 1.00. Most recent thoracentesis fluid revealed a LDH of 124, protein 2.3. The patient has also recently undergone recent FNA of the mediastinal lymph node by Dr. Ovalle. This was reported as benign. The patient is seen again today 04/13/2018 in follow-up on the regular medical floor. Remains awake and alert in no acute distress. He is maintaining good O2 saturations in the mid 90s on 2 L/m per nasal cannula. He's been afebrile. Hemodynamically stable. He was seen and evaluated by cardiothoracic and the plan is for Pleurx catheter insertion with pleurodesis tomorrow. Today's INR 3.8. Objective - Vital Signs Vital signs: Vital Signs Temp 97.5 F L 04/13/18 06:00 Pulse 70 04/13/18 09:28 Resp 20 04/13/18 09:02 BP 160/74 04/13/18 06:00 Pulse Ox 96 04/13/18 09:02 Intake & Output 04/12/18 04/13/18 04/13/18 18:59 06:59 18:59 Intake Total 960 500 Balance 960 500 Weight 76.1 kg Intake: Oral 960 500 Other: Voiding Method Toilet Toilet Urinal Urinal # Voids 2 1 # Bowel Movements 0 - Exam GENERAL EXAM: Alert, active, comfortable in no apparent distress. HEAD: Normocephalic. EYES: Normal reaction of pupils, equal size. NOSE: Clear with pink turbinates. THROAT: No erythema or exudates. NECK: No masses, no JVD. CHEST: No chest wall deformity. LUNGS: Equal air entry with pickles in the right posterior base. Diminished. Dullness. CVS: S1 and S2 normal with no audible murmur, regular rhythm. ABDOMEN: No hepatosplenomegaly, normal bowel sounds, no guarding or rigidity. SPINE: No scoliosis or deformity SKIN: No rashes CENTRAL NERVOUS SYSTEM: No focal deficits, tone is normal in all 4 extremities. EXTREMITIES: There is no peripheral edema. No clubbing, no cyanosis. Peripheral pulses are intact. - Labs CBC & Chem 7: 04/12/18 07:50 04/12/18 07:50 Labs: Abnormal Lab Results - Last 24 Hours (Table) 04/12/18 04/12/18 04/13/18 Range/Units 17:13 20:37 07:17 PT (9.0-12.0) sec INR (<1.2) POC Glucose (mg/dL) 150 H 165 H 138 H (75-99) mg/dL 04/13/18 04/13/18 Range/Units 11:07 11:50 PT 33.6 H (9.0-12.0) sec INR 3.8 H (<1.2) POC Glucose (mg/dL) 141 H (75-99) mg/dL Assessment and Plan Assessment: Impression: #1 Acute on chronic hypoxic respiratory failure secondary to an acute exacerbation of diastolic congestive heart failure, recurrent right-sided pleural effusion and multiple previous thoracentesis most recently 03/13/2018 with 800 ML serosanguineous fluid removed. Negative for malignancy. Transudative Total protein 2.3. LDH 124. The patient had also undergone a FNA of the pericarinal lymph nodes which are reported as benign. #2 Acute on chronic diastolic congestive heart failure. Preserved left ventricular systolic function with ejection fraction 50-55%. #3 History of stable, loculated right pleural effusion. #4 Pericarinal lymph node measuring 2.5 x 1.7 cm, abnormal anterior superior mediastinal lymph node measuring 1.8 x 1.4 cm. Status post biopsy, benign. #5 Chronic atrial fibrillation, anticoagulated with warfarin. #6 Cardiac arrhythmia requiring permanent pacemaker implantation. #7 Remote history of DVT in 2006. #8 Hypertension. #9 Hyperlipidemia. #10 Coronary artery disease status post coronary artery bypass grafting. #11 Aortic valve stenosis status post aortic valve replacement utilizing a bioprosthetic aortic valve. #12 History of prostate cancer. #13 Chronic pain syndrome. #14 Anxiety/depression. Plan: The patient was seen and evaluated by Dr. Ovalle. He is currently stable from the pulmonary standpoint. We'll continue his current medications. Hold the warfarin. The plan is for Pleurx catheter insertion on 04/15/[address] services. We'll continue to follow. I, the cosigning physician, performed a history & physical examination of the patient. Lungs sounds with crackles in the right posterior base and diminished. Maintaining good O2 saturations in the 90s on 2 L/m per nasal cannula. I discussed the assessment and plan of care with my nurse practitioner, Margarita Soto. I attest to the above note as dictated by her.
--- NOTE | 2018-04-13 14:33 | P.GSCN ---
<Virgen Gallegos - Last Filed: 04/13/18 14:19> History of Present Illness Consult date: 04/13/18 Reason for Consult: Recurrent right-sided pleural effusion Requesting physician: Jae Ovalle History of present illness: This is an 82-year-old gentleman who follows with Dr. Adolfo Ashleynem an outpatient basis. He has a previous medical history of coronary artery disease , aortic valve stenosis, previous CABG and valve replacement in 2015, chronic atrial fibrillation on home Coumadin therapy, permanent pacemaker implantation, left lower extremity DVT in 2006, diastolic heart failure, pulmonary hypertension, previous tobacco dependence, COPD, home oxygen use, pneumonia, BPH , and multiple admissions for recurrent right-sided pleural effusion status post thoracentesis 3, negative for malignancy. He presented to [facility] emergency room again on 04/10/2018 with complaints of shortness of breath and was found to have right-sided pleural effusion. His most recent thoracentesis was March 13 with removal of [address] Davidson cardiothoracic surgery was consulted for recommendations for Pleurx catheter placement. Review of Systems Review of systems was completed and was negative except as noted. - Respiratory Reports dyspnea Past Medical History Past Medical History: Atrial Fibrillation, Coronary Artery Disease (CAD), Cancer , Chest Pain / Angina, Heart Failure, COPD, Deep Vein Thrombosis (DVT), GERD/ Reflux, Hyperlipidemia, Hypertension, Myocardial Infarction (MN), Pneumonia, Prostate Disorder Additional Past Medical History / Comment(s): Home O2 at 2L/NC lately ATC, recurrent R pleural effusions, thoracic adenopathy, pneumonias, pneumonia with sepsis, bronchitis, bilateral lower leg edema/redness L lower leg, L leg DVT in 2006, chronic L leg pain/ neurological damage, BPH, prostrate cancer with surgery, constipation, recently had 4 teeth extracted, Last Myocardial Infarction Date:: 2005 History of Any Multi-Drug Resistant Organisms: None Reported Past Surgical History: Appendectomy, Cardiac Valve Replacement, Cholecystectomy , Heart Catheterization, Heart Catheterization With Stent, Hernia Repair, Pacemaker, Prostate Surgery Additional Past Surgical History / Comment(s): 2016 aortic valve replacement, bilateral cataracts removal, prostatectomy, penile implant x2, R sided thoracentesises, bilateral inguinal hernia repair, L leg dvt surgically removed , colonoscopies. Past Anesthesia/Blood Transfusion Reactions: Previous Problems w/ Anesthesia Additional Past Anesthesia/Blood Transfusion Reaction / Comm: "one time BP dropped too low" Date of Last Stent Placement:: 2005 Type of Cardiac Device: Permanent Pacemaker Device Placement Date:: 2004? Past Psychological History: Anxiety Additional Psychological History / Comment(s): Pt resides alone. He is originally from [place]. He has home O2 and lately has been wearing it at 2L/ [place] ATC. He is nearly done with home care thru [facility]. He drives. He uses no assistive device. Smoking Status: Former smoker Past Alcohol Use History: None Reported Additional Past Alcohol Use History / Comment(s): STARTED SMOKING AT AGE 19, SMOKED 1 PPD, QUIT 1963 Past Drug Use History: None Reported - Past Family History Brother(s) Family Medical History: Cancer Sister(s) Family Medical History: Cancer Father Family Medical History: Cancer Additional Family Medical History / Comment(s): Father had prostrate cancer. He had CAD/CABG. He at the age of 78yrs during coronary angioplasty. Mother Family Medical History: Myocardial Infarction (MN) Additional Family Medical History / Comment(s): Mother had a MN at the age of 35yrs. She had CABG. She lived to be 93 yrs old. Medications and Allergies Home Medications Medication Instructions Recorded Confirmed Type Carvedilol 25 mg PO DAILY 06/19/15 04/10/18 History Ferrous Sulfate [Iron (65 MG 325 mg PO DAILY 06/19/15 04/10/18 History Elemental)] oxyCODONE HCL 15 mg PO BID PRN 06/19/15 04/10/18 History LORazepam [Ativan] 0.5 mg PO QID PRN 07/28/16 04/10/18 History Ubidecarenone [Co Q-10] 200 mg PO DAILY 07/28/16 04/10/18 History Lovastatin [Mevacor] 20 mg PO HS 11/20/17 04/10/18 History Warfarin [Coumadin] 5 mg PO HS 11/20/17 04/10/18 History traZODone HCL 100 mg PO HS 11/20/17 04/10/18 History Furosemide [Lasix] 40 mg PO BID #60 tablet 11/21/17 04/10/18 Rx Polyethylene Glycol 3350 [Miralax] 17 gm PO DAILY powd.pack 02/07/18 04/10/18 Rx Lisinopril [Zestril] 2.5 mg PO DAILY 03/10/18 04/10/18 History Promethazine HCl 12.5 mg PO BID PRN 03/10/18 04/10/18 History Morphine Sulfate [Ms Contin] 60 mg PO Q12HR 04/01/18 04/10/18 History Multivitamins, Thera [Multivitamin 1 tab PO DAILY 04/01/18 04/10/18 History (formulary)] Pantoprazole [Protonix] 40 mg PO DAILY 04/01/18 04/10/18 History Sucralfate [Carafate] 1 gm PO BID 04/01/18 04/10/18 History Warfarin Sodium 2 mg PO HS 04/01/18 04/10/18 History Cefuroxime Axetil [Ceftin] 500 mg PO BID #10 tab 04/05/18 04/10/18 Rx Docusate [Colace] 100 mg PO BID cap 04/05/18 04/10/18 Rx Lactulose [Cephulac] 30 gm PO TID PRN ml 04/05/18 04/10/18 Rx Sennosides [Senokot] 8.6 mg PO DAILY PRN tab 04/05/18 04/10/18 Rx Budesonide-Formot 160-4.5 Mcg 2 puff INHALATION RT-BID 04/10/18 04/10/18 History [Symbicort 160-4.5 Mcg Inhaler] Ipratropium-Albuterol Nebulize 3 ml INHALATION RT-QID 04/10/18 04/10/18 History [Duoneb 0.5 mg-3 mg/3 ml Soln] predniSONE See Taper PO DIRECTED 04/10/18 04/10/18 History Allergies Allergy/AdvReac Type Severity Reaction Status Date / Time No Known Allergies Allergy Verified 04/10/18 13:00 Surgical - Exam Vital Signs Temp Pulse Resp BP Pulse Ox 97.8 F 60 18 144/65 87 L 04/10/18 11:33 04/10/18 11:33 04/10/18 11:33 04/10/18 11:33 04/10/18 11:33 - General well developed, well nourished, no distress, no pain, chronically ill - Eyes PERRL, normal ocular movement - ENT no hearing loss - Neck no masses, no bruits, trachea midline - Respiratory Lungs sounds diminished on the right side with faint crackles heard in the base. Respirations even, nonlabored. Currently on 2 L nasal cannula with oxygen saturation 96%. - Cardiovascular S1, S2 present. Regular rate and rhythm. Palpable peripheral pulses bilaterally. No edema present. No calf pain or tenderness noted. - Abdomen Abdomen: soft, non tender, bowel sounds - Genitourinary Deferred - Rectum Deferred - Integumentary no rash, no growths - Neurologic normal coordination, normal sensation - Musculoskeletal normal gait, normal posture - Psychiatric oriented to time, oriented to person, oriented to place, speech is normal, memory intact Results - Labs 04/12/18 07:50 04/12/18 07:50 Abnormal Lab Results - Last 24 Hours (Table) 04/12/18 04/12/18 04/13/18 Range/Units 17:13 20:37 07:17 PT (9.0-12.0) sec INR (<1.2) POC Glucose (mg/dL) 150 H 165 H 138 H (75-99) mg/dL 04/13/18 04/13/18 Range/Units 11:07 11:50 PT 33.6 H (9.0-12.0) sec INR 3.8 H (<1.2) POC Glucose (mg/dL) 141 H (75-99) mg/dL - Imaging Chest x-ray: report reviewed, image reviewed Assessment and Plan (1) Recurrent right pleural effusion Current Visit: Yes Status: Acute Code(s): J90 - PLEURAL EFFUSION, NOT ELSEWHERE CLASSIFIED SNOMED Code(s): 46845152 (2) Chronic anemia Current Visit: Yes Status: Chronic Code(s): D64.9 - ANEMIA, UNSPECIFIED SNOMED Code(s): 731015612 (3) COPD (chronic obstructive pulmonary disease) Current Visit: Yes Status: Chronic Code(s): J44.9 - CHRONIC OBSTRUCTIVE PULMONARY DISEASE, UNSPECIFIED SNOMED Code(s): 28079071 (4) Hypertension Current Visit: Yes Status: Chronic Code(s): I10 - ESSENTIAL (PRIMARY) HYPERTENSION SNOMED Code(s): 22753627 Plan: The patient was seen and examined at the bedside with Dr. Davidson. Chart/ diagnostics were reviewed. The case was discussed in detail with Dr. Ovalle. We offered the patient the option of right-sided Pleurx catheter placement. All risks and benefits were reviewed with the patient and he is agreeable to surgery. Patient's son Chad contacted by Dr. Davidson by phone and plan of care was reviewed with him as well. Will hold Coumadin at this time, INR needs to be less than 1.8 in order to take patient to surgery. Will plan to place right- sided Pleurx catheter on April 15 as long as INR is less than 1.8. Encourage incentive spirometry use. Medical management per primary care service. Thank you Dr. Ovalle for this consult. We look forward to working with you in the care of your patient. Time with Patient: Greater than 30 <Henry Davidson R - Last Filed: 04/15/18 08:13> Surgical - Exam Vital Signs Temp Pulse Resp BP Pulse Ox 97.8 F 60 18 144/65 87 L 04/10/18 11:33 04/10/18 11:33 04/10/18 11:33 04/10/18 11:33 04/10/18 11:33 Results - Labs 04/14/18 08:10 04/14/18 08:10 Abnormal Lab Results - Last 24 Hours (Table) 04/14/18 04/14/18 04/14/18 Range/Units 08:10 08:10 08:10 WBC 17.4 H (3.8-10.6) k/uL RBC 3.17 L (4.30-5.90) m/uL Hgb 10.4 L (13.0-17.5) gm/dL Hct 31.9 L (39.0-53.0) % MCV 100.7 H (80.0-100.0) fL Neutrophils # 15.5 H (1.3-7.7) k/uL Lymphocytes # 0.9 L (1.0-4.8) k/uL PT 14.8 H (9.0-12.0) sec INR 1.6 H (<1.2) Sodium 136 L (137-145) mmol/L Chloride 92 L (98-107) mmol/L Carbon Dioxide 35 H (22-30) mmol/L BUN 53 H (9-20) mg/dL Glucose 109 H (74-99) mg/dL POC Glucose (mg/dL) (75-99) mg/dL 04/14/18 04/14/18 04/14/18 Range/Units 11:39 17:12 20:44 WBC (3.8-10.6) k/uL RBC (4.30-5.90) m/uL Hgb (13.0-17.5) gm/dL Hct (39.0-53.0) % MCV (80.0-100.0) fL Neutrophils # (1.3-7.7) k/uL Lymphocytes # (1.0-4.8) k/uL PT (9.0-12.0) sec INR (<1.2) Sodium (137-145) mmol/L Chloride (98-107) mmol/L Carbon Dioxide (22-30) mmol/L BUN (9-20) mg/dL Glucose (74-99) mg/dL POC Glucose (mg/dL) 152 H 139 H 178 H (75-99) mg/dL 04/15/18 Range/Units 06:58 WBC (3.8-10.6) k/uL RBC (4.30-5.90) m/uL Hgb (13.0-17.5) gm/dL Hct (39.0-53.0) % MCV (80.0-100.0) fL Neutrophils # (1.3-7.7) k/uL Lymphocytes # (1.0-4.8) k/uL PT (9.0-12.0) sec INR (<1.2) Sodium (137-145) mmol/L Chloride (98-107) mmol/L Carbon Dioxide (22-30) mmol/L BUN (9-20) mg/dL Glucose (74-99) mg/dL POC Glucose (mg/dL) 132 H (75-99) mg/dL Diabetes panel 04/14/18 Range/Units 08:10 Sodium 136 L (137-145) mmol/L Potassium 4.6 (3.5-5.1) mmol/L Chloride 92 L (98-107) mmol/L Carbon Dioxide 35 H (22-30) mmol/L BUN 53 H (9-20) mg/dL Creatinine 1.07 (0.66-1.25) mg/dL Glucose 109 H (74-99) mg/dL Calcium 9.0 (8.4-10.2) mg/dL Calcium panel 04/14/18 Range/Units 08:10 Calcium 9.0 (8.4-10.2) mg/dL Pituitary panel 04/14/18 Range/Units 08:10 Sodium 136 L (137-145) mmol/L Potassium 4.6 (3.5-5.1) mmol/L Chloride 92 L (98-107) mmol/L Carbon Dioxide 35 H (22-30) mmol/L BUN 53 H (9-20) mg/dL Creatinine 1.07 (0.66-1.25) mg/dL Glucose 109 H (74-99) mg/dL Calcium 9.0 (8.4-10.2) mg/dL Adrenal panel 04/14/18 Range/Units 08:10 Sodium 136 L (137-145) mmol/L Potassium 4.6 (3.5-5.1) mmol/L Chloride 92 L (98-107) mmol/L Carbon Dioxide 35 H (22-30) mmol/L BUN 53 H (9-20) mg/dL Creatinine 1.07 (0.66-1.25) mg/dL Glucose 109 H (74-99) mg/dL Calcium 9.0 (8.4-10.2) mg/dL Assessment and Plan Assessment: Recurrent right malignant pleural effusion, symptomatic. Patient has had 3 previous thoracenteses here as well as several in [place]. Plan PleurX catheter for management of this problem. Will need to reverse coumadin to INR , 1.6 for safety. Plan OR April 15. Discussed with patient at length. Also spoke with patient's son by telephone at length. They are both agreeable to this plan.
[2018-04-13] MEDS ORDERED: PHYTONADIONE 5 MG in SODIUM CHLORIDE 0.9% 50 ML IVPB STA ×2 (14:40→15:11)
[2018-04-13] MEDS: LORazepam 0.5 MG TAB PO PRN ×2 (16:33→20:49)
[2018-04-13] MEDS: HEPARIN SODIUM,PORCINE 5,000 UNIT/ML 1 ML VIAL SQ SCH (16:33)
[2018-04-13 17:13] LABS: Glucose,Whole Blood 165 mg/dL (75-99)
[2018-04-13] MEDS ORDERED: WARFARIN 5 MG TAB PO SCH (18:00)
--- NOTE | 2018-04-13 19:42 | P.PN ---
Subjective Progress Note Date: 04/13/18 Progress note being dictated for Dr. Robbins Interval history:Patient is a 82-year-old male with a known history of COPD, CHF with diastolic dysfunction and chronic hypoxic respiratory failure, history of I aortic valve replacement, DVT, hypertension, hyperlipidemia, history of NV and prostate disorder, BPH prostate cancer with surgery, coronary artery disease with history of stent placement, pacemaker placement and multiple other medical problems came to the hospital with complaints of worsening shortness of breath. Patient was recently discharged from the hospital and was treated for acute COPD and CHF exacerbation and hypoxic respiratory failure. Patient does have recurrent right-sided pleural effusion with multiple previous thoracentesis. Negative for malignancy. Patient recently had transbronchial needle aspiration of the lymph node recently. Pathology showed benign lymph node and mononuclear cells associated with hyperpigmentation consistent with paratracheal lymph node. Negative for malignancy. Patient otherwise denied any fever or chills. Patient was having worsening leg swelling. No headache or dizziness or lightheadedness. Patient says that he had nebulizer but does not have any medications solution with that. Patient came to ER for further evaluation. Denied any comes of chest pain. No nausea vomiting or abdominal pain. Chest x-ray showed cardiomegaly. Worsening opacity in the right lung base likely representing combination of pleural fluid and atelectasis. Pneumonia is not excluded. 04/11/2018 Patient says that his breathing is slightly better today. No complaints of chest pain. Leg swelling improved. Patient is being continued on IV diuresis and we will change to oral tomorrow. Recent bronchoscopy and biopsy of the lymph node showed no malignancy. Pulmonary is following and recommends pleurodesis due to recurrent right-sided loculated pleural effusion. Patient was also recommended to elevate legs when lying on bed. Otherwise no fever no chills. All other review of systems negative except above Current medications reviewed 04/12/2018 Complains of exertional dyspnea. Maintaining O2 sats in the high 90s on 2 L nasal cannula. Afebrile, WBC 15.6. Hemoglobin 9.8. INR 3. Recurrent pleural effusions, multiple thoracentesis -cultures reported as negative for malignancy, in a patient with CHF. Cardiothoracic surgery consulted for potential Pleurx catheter. Denies chest pain, palpitations. 04/13/2018. Evaluated by cardiothoracic surgery, Pleurx catheter placement pending. Coumadin placed on hold. Maintaining O2 sats in the high 90s on 2 L nasal cannula. Afebrile. Objective - Vital Signs Vital signs: Vital Signs Temp 98.1 F 04/13/18 15:59 Pulse 61 04/13/18 16:24 Resp 16 04/13/18 16:24 BP 134/66 04/13/18 16:16 Pulse Ox 100 04/13/18 16:16 Intake & Output 04/13/18 04/13/18 04/14/18 06:59 18:59 06:59 Intake Total 500 Balance 500 Weight 76.1 kg Intake: Oral 500 Other: Voiding Method Toilet Urinal # Voids 1 2 - Exam PHYSICAL EXAMINATION: Patient is sitting up in chair, no acute distress, HEENT: Normocephalic. Neck is supple. Pupils reactive. Nostrils clear. Oral cavity is moist. Neck reveals no JVD, carotid bruits, or thyromegaly. CHEST EXAMINATION: Trachea is central. Symmetrical expansion. Bilateral diffuse rhonchi and crackles,right base dullness CARDIAC: Normal S1, S2 with no gallops. No murmurs ABDOMEN: Soft. Bowel sounds normal. No organomegaly. No abdominal bruits. Extremities: 2+ edema. No clubbing or cyanosis Neurologically awake, alert, oriented x3 with well-coordinated movements. No focal deficits noted Skin: No rash or skin lesions. Psychiatric: Alert and oriented 3, mood and affect normal Musculoskeletal: No joint swelling or deformity. Normal range of motion. - Labs CBC & Chem 7: 04/12/18 07:50 04/12/18 07:50 Labs: Abnormal Lab Results - Last 24 Hours (Table) 04/12/18 04/13/18 04/13/18 Range/Units 20:37 07:17 11:07 PT 33.6 H (9.0-12.0) sec INR 3.8 H (<1.2) POC Glucose (mg/dL) 165 H 138 H (75-99) mg/dL 04/13/18 04/13/18 Range/Units 11:50 17:08 PT (9.0-12.0) sec INR (<1.2) POC Glucose (mg/dL) 141 H 165 H (75-99) mg/dL Assessment and Plan Assessment: Acute on chronic hypoxic respiratory failure secondary to acute COPD and CHF exacerbation, diastolic dysfunction, along with right-sided pleural effusion Acute on chronic diastolic CHF Recurrent right-sided loculated pleural effusion and history of multiple thoracentesis. Negative for malignancy Recent transbronchial needle aspiration due to paratracheal lymphadenopathy. Negative for malignancy Chronic afibrillation on anticoagulation with Coumadin History of pacemaker placement, aortic valve replacement with bioprosthetic aortic valve History of DVT Hypertension Hyperlipidemia Prostate cancer status post surgery Chronic pain syndrome Anxiety and depression Status post bypass grafting for CAD and aortic valve replacement for aortic valve stenosis Plan: Continue on current medication regime ,monitoring and symptomatic treatment. Aggressive pulmonary toileting,IS .Maintain nebulized bronchodilators, systemic steroids, and Lasix. Coumadin remains on hold for pending Pleurx catheter placement, as recommended per cardiothoracic surgery. The impression and plan of care has been dictated as directed. : I performed a history and examination of this patient, discussed the same with the dictator. I agree with the dictator's note ,documented as a scribe. Any additional findings or plans will be noted.
[2018-04-13 20:48] LABS: Glucose,Whole Blood 181 mg/dL (75-99)
[2018-04-13] MEDS: traZODone HCL 100 MG TAB PO SCH (20:48)
[2018-04-13] MEDS: ATORVASTATIN 10 MG TAB PO SCH (20:48)
[2018-04-14] MEDS: HEPARIN SODIUM,PORCINE 5,000 UNIT/ML 1 ML VIAL SQ SCH ×4 (00:02→23:16)
[2018-04-14] MEDS: FUROSEMIDE 10 MG/ML 4 ML VIAL IV SCH ×2 (06:36→18:39)
[2018-04-14] MEDS: methylPREDNISolone SOD SUCCI 40 MG/ML 1 ML VIAL IV SCH ×3 (06:36→21:12)
[2018-04-14 07:27] LABS: Glucose,Whole Blood 126 mg/dL (75-99)
[2018-04-14] MEDS: INSULIN ASPART 100 UNIT/ML 1 ML 10 ML VIAL SQ SCH ×4 (08:08→21:27)
[2018-04-14] MEDS: IPRATROPIUM-ALBUTEROL 3 ML NEB INHALATION SCH ×4 (08:09→20:00)
[2018-04-14] MEDS: SYMBICORT 160-4.5 MCG INHALER INHALATION SCH ×2 (08:10→20:00)
[2018-04-14] MEDS: MULTIVITAMINS, THERA 1 EACH TAB PO SCH (08:20)
[2018-04-14] MEDS: SUCRALFATE 1 GM TAB PO SCH ×2 (08:20→21:10)
[2018-04-14] MEDS: PANTOPRAZOLE 40 MG TABLET PO SCH (08:20)
[2018-04-14] MEDS: CARVEDILOL 12.5 MG TAB PO SCH (08:20)
[2018-04-14] MEDS: LISINOPRIL 2.5 MG TAB PO SCH (08:20)
[2018-04-14] MEDS: FERROUS SULFATE 325 MG TAB PO SCH (08:20)
[2018-04-14] MEDS: MORPHINE SULFATE ER 60 MG TABLET PO SCH ×2 (08:20→21:08)
[2018-04-14] MEDS: DOCUSATE 100 MG CAP PO SCH ×2 (08:21→21:27)
[2018-04-14] MEDS: POLYETHYLENE GLYCOL 3350 17 GM POWD.PACK PO SCH (08:22)
[2018-04-14 08:51] LABS: INR 1.6 (<1.2); Prothrombin Time 14.8 sec (9.0-12.0)
[2018-04-14 08:55] LABS: Basophils % (A) 0 %; Eosinophils % (A) 0 %; HCT 31.9 % (39.0-53.0); HGB 10.4 gm/dL (13.0-17.5); Lymphocytes # (A) 0.9 k/uL (1.0-4.8); Lymphocytes % (A) 5 %; MCH 32.7 pg (25.0-35.0); MCHC 32.5 g/dL (31.0-37.0); MCV 100.7 fL (80.0-100.0); Macrocytosis Slight; Mean Platelet Volume 6.6; Monocytes # (A) 0.9 k/uL (0-1.0); Monocytes % (A) 5 %; Neutrophils # (A) 15.5 k/uL (1.3-7.7); Neutrophils % (A) 89 %; Platelet Count 331 k/uL (150-450); RBC 3.17 m/uL (4.30-5.90); RDW 14.1 % (11.5-15.5); WBC 17.4 k/uL (3.8-10.6)
[2018-04-14 09:09] LABS: Potassium 4.6 mmol/L (3.5-5.1)
[2018-04-14] MEDS: LORazepam 0.5 MG TAB PO PRN ×2 (12:05→21:08)
[2018-04-14 16:43] LABS: Glucose,Whole Blood 152 mg/dL (75-99)
--- NOTE | 2018-04-14 16:55 | P.PN ---
Subjective Progress Note Date: 04/14/18 Principal diagnosis: Recurrent right-sided pleural effusion, history of coronary artery disease, history of coronary artery disease with a stent placed to his right coronary artery in 2007, history of aortic valve stenosis with previous aortic valve replacement using a bioprosthetic valve, mitral valve and tricuspid valve repair in January 2013, chronic atrial fibrillation on hold Coumadin therapy, permanent pacemaker implantation, left lower extremity DVT in 2006, diastolic heart failure, pulmonary hypertension, history of previous tobacco dependence, COPD with home oxygen use, history of pneumonia, BPH, and multiple admissions for recurrent right-sided pleural effusion status post thoracentesis 3 which have all been negative for malignancy. Patient is currently sitting up to bedside chair. He is in no acute distress. He denies any complaints of pain or shortness of breath at this time. He is currently on 2 L nasal cannula with oxygen saturations at 98%. He is afebrile. His INR level today is 1.6 down from 3.8 yesterday. He is scheduled for a placement of a right pleural Pleurx catheter tomorrow 04/15/2018 to be performed by Dr. Henry Davidson. There is some +1 edema to his bilateral lower extremities. Objective - Vital Signs Vital signs: Vital Signs Temp 97.8 F 04/14/18 13:54 Pulse 64 04/14/18 15:41 Resp 16 04/14/18 13:54 BP 119/50 04/14/18 13:54 Pulse Ox 98 04/14/18 13:54 Intake & Output 04/13/18 04/14/18 04/14/18 18:59 06:59 18:59 Intake Total 300 Balance 300 Weight 76.204 kg Intake: Oral 300 Other: Voiding Method Toilet Urinal # Voids 2 2 1 # Bowel Movements 2 - Constitutional General appearance: Present: cooperative, no acute distress - Respiratory Details: Lung sounds are essentially clear throughout, diminished to his right lower lobe with few scattered crackles. Respirations are symmetrical and nonlabored. Oxygen saturation are 90% on 2 L nasal cannula. - Cardiovascular Details: Regular rhythm and rate. S1 and S2 present, positive systolic murmur 2/6. +1 edema to his bilateral lower extremities. Peripheral pulses palpable. - Gastrointestinal Gastrointestinal Comment(s): Abdomen is soft, nontender and nondistended. Active bowel sounds to all 4 abdominal quadrants. Tolerating oral intake. Passing flatus. - Genitourinary Genitourinary Comment(s): Voiding clear amira urine. - Integumentary Integumentary Comment(s): Skin is warm and dry. No clubbing or cyanosis present. No rash present. - Neurologic Neurologic Comment(s): No focal deficits. Neurologic: Present: CNII-XII intact - Musculoskeletal Musculoskeletal: Present: gait normal, generalized weakness, strength equal bilaterally - Psychiatric Psychiatric: Present: A&O x's 3, appropriate affect, intact judgment & insight - Allied health notes Allied health notes reviewed: nursing - Labs CBC & Chem 7: 04/14/18 08:10 04/14/18 08:10 Labs: Abnormal Lab Results - Last 24 Hours (Table) 04/13/18 04/13/18 04/14/18 Range/Units 17:08 20:44 07:24 WBC (3.8-10.6) k/uL RBC (4.30-5.90) m/uL Hgb (13.0-17.5) gm/dL Hct (39.0-53.0) % MCV (80.0-100.0) fL Neutrophils # (1.3-7.7) k/uL Lymphocytes # (1.0-4.8) k/uL PT (9.0-12.0) sec INR (<1.2) Sodium (137-145) mmol/L Chloride (98-107) mmol/L Carbon Dioxide (22-30) mmol/L BUN (9-20) mg/dL Glucose (74-99) mg/dL POC Glucose (mg/dL) 165 H 181 H 126 H (75-99) mg/dL 04/14/18 04/14/18 04/14/18 Range/Units 08:10 08:10 08:10 WBC 17.4 H (3.8-10.6) k/uL RBC 3.17 L (4.30-5.90) m/uL Hgb 10.4 L (13.0-17.5) gm/dL Hct 31.9 L (39.0-53.0) % MCV 100.7 H (80.0-100.0) fL Neutrophils # 15.5 H (1.3-7.7) k/uL Lymphocytes # 0.9 L (1.0-4.8) k/uL PT 14.8 H (9.0-12.0) sec INR 1.6 H (<1.2) Sodium 136 L (137-145) mmol/L Chloride 92 L (98-107) mmol/L Carbon Dioxide 35 H (22-30) mmol/L BUN 53 H (9-20) mg/dL Glucose 109 H (74-99) mg/dL POC Glucose (mg/dL) (75-99) mg/dL Assessment and Plan (1) Hyperlipidemia Current Visit: Yes Status: Acute Code(s): E78.5 - HYPERLIPIDEMIA, UNSPECIFIED SNOMED Code(s): 32065003 (2) Anemia Current Visit: Yes Status: Acute Code(s): D64.9 - ANEMIA, UNSPECIFIED SNOMED Code(s): 757104856 (3) Recurrent right pleural effusion Current Visit: Yes Status: Acute Code(s): J90 - PLEURAL EFFUSION, NOT ELSEWHERE CLASSIFIED SNOMED Code(s): 38650790 (4) COPD (chronic obstructive pulmonary disease) Current Visit: Yes Status: Chronic Code(s): J44.9 - CHRONIC OBSTRUCTIVE PULMONARY DISEASE, UNSPECIFIED SNOMED Code(s): 94118395 (5) Dyspnea Current Visit: No Status: Acute Code(s): R06.00 - DYSPNEA, UNSPECIFIED SNOMED Code(s): 758747585 Plan: 1. Patient will be nothing by mouth after midnight. 2. No Coumadin today, INR is 1.6. Patient is scheduled for a right Pleurx catheter placement tomorrow to be performed by Dr. Henry Davidson. We will restart the Coumadin post Pleurx catheter insertion. 3. Obtain consent for right sided Pleurx catheter placement. 4. Medical management per Dr. Saldaña's recommendations. 5. GI and DVT prophylaxis in place. 6. More recommendations to follow based on patient's clinical course. Time with Patient: Greater than 30
[2018-04-14 17:15] LABS: Glucose,Whole Blood 139 mg/dL (75-99)
[2018-04-14 20:45] LABS: Glucose,Whole Blood 178 mg/dL (75-99)
[2018-04-14] MEDS: traZODone HCL 100 MG TAB PO SCH (21:07)
[2018-04-14] MEDS: ATORVASTATIN 10 MG TAB PO SCH (21:08)
[2018-04-15] MEDS: methylPREDNISolone SOD SUCCI 40 MG/ML 1 ML VIAL IV SCH ×3 (05:19→21:04)
[2018-04-15] MEDS: FUROSEMIDE 10 MG/ML 4 ML VIAL IV SCH ×2 (05:22→18:06)
[2018-04-15 07:07] LABS: Glucose,Whole Blood 132 mg/dL (75-99)
[2018-04-15] MEDS: CARVEDILOL 12.5 MG TAB PO SCH (07:35)
[2018-04-15] MEDS: INSULIN ASPART 100 UNIT/ML 1 ML 10 ML VIAL SQ SCH ×4 (07:36→22:27)
[2018-04-15] MEDS: SYMBICORT 160-4.5 MCG INHALER INHALATION SCH ×2 (08:03→19:36)
[2018-04-15] MEDS: IPRATROPIUM-ALBUTEROL 3 ML NEB INHALATION SCH ×4 (08:03→19:36)
[2018-04-15 08:22] LABS: Basophils % (A) 0 %; Eosinophils % (A) 0 %; HCT 32.5 % (39.0-53.0); HGB 10.6 gm/dL (13.0-17.5); Lymphocytes # (A) 0.8 k/uL (1.0-4.8); Lymphocytes % (A) 5 %; MCHC 32.7 g/dL (31.0-37.0); MCV 100.9 fL (80.0-100.0); Macrocytosis Slight; Mean Platelet Volume 6.7; Monocytes # (A) 0.8 k/uL (0-1.0); Monocytes % (A) 5 %; Neutrophils # (A) 13.6 k/uL (1.3-7.7); Neutrophils % (A) 89 %; Platelet Count 325 k/uL (150-450); RBC 3.22 m/uL (4.30-5.90); RDW 14.1 % (11.5-15.5); WBC 15.4 k/uL (3.8-10.6)
[2018-04-15 08:23] LABS: INR 1.3 (<1.2); Prothrombin Time 12.3 sec (9.0-12.0)
[2018-04-15] MEDS: HEPARIN SODIUM,PORCINE 5,000 UNIT/ML 1 ML VIAL SQ SCH ×3 (08:31→23:19)
[2018-04-15 08:41] LABS: Calcium 8.8 mg/dL (8.4-10.2)
[2018-04-15] MEDS ORDERED: HYDROmorphone 0.5 MG/0.5 ML SYRINGE IVP PRN (08:58)
[2018-04-15] MEDS ORDERED: ONDANSETRON 4 MG/2 ML VIAL IVP ONE (08:58)
[2018-04-15] MEDS ORDERED: LACTATED RINGERS 1,000 ML IV SCH (08:58)
[2018-04-15 09:05] LABS: Glucose,Whole Blood 131 mg/dL (75-99)
[2018-04-15] MEDS ORDERED: ceFAZolin 2,000 MG in DEXTROSE/WATER 1 50ML.BAG IVPB ONE (09:45)
[2018-04-15] MEDS ORDERED: ceFAZolin IN SWFI 2 GM/20 ML SYRINGE IVP ONE (09:45)
[2018-04-15] MEDS ORDERED: PROPOFOL 10 MG/ML 20 ML VIAL IV ONE (10:28)
[2018-04-15] MEDS ORDERED: MIDAZOLAM 2 MG/2 ML VIAL ONE (10:28)
[2018-04-15] MEDS ORDERED: fentaNYL (PF) 50 MCG/ML 2 ML AMP ONE (10:28)
[2018-04-15] MEDS ORDERED: LIDOCAINE 1% (PF) 10 MG/ML (30 ML SDV) SQ ONE (10:41)
--- NOTE | 2018-04-15 11:10 | FL ---
Fluoroscopy INDICATION: Pain, Pleurx catheter placement FINDINGS: Fluoroscopy time: 41 seconds. Images obtained: 1. IMPRESSIONS: 1. Documentation of fluoroscopy.
[2018-04-15 11:58] LABS: Glucose,Whole Blood 127 mg/dL (75-99)
[2018-04-15 12:11] LABS: Appearance,BF Cloudy; Color,BF Orange
[2018-04-15] MEDS: DOCUSATE 100 MG CAP PO SCH ×2 (12:45→21:04)
[2018-04-15] MEDS: MORPHINE SULFATE ER 60 MG TABLET PO SCH ×2 (12:45→21:04)
[2018-04-15] MEDS: LISINOPRIL 2.5 MG TAB PO SCH (12:46)
[2018-04-15] MEDS: PANTOPRAZOLE 40 MG TABLET PO SCH (12:46)
[2018-04-15] MEDS: POLYETHYLENE GLYCOL 3350 17 GM POWD.PACK PO SCH (12:46)
[2018-04-15] MEDS: MULTIVITAMINS, THERA 1 EACH TAB PO SCH (12:46)
[2018-04-15] MEDS: FERROUS SULFATE 325 MG TAB PO SCH (12:46)
[2018-04-15] MEDS: SUCRALFATE 1 GM TAB PO SCH ×2 (12:47→21:04)
--- NOTE | 2018-04-15 13:00 | XR ---
EXAMINATION TYPE: XR chest 1V portable DATE OF EXAM: 04/15/2018 COMPARISON: 04/10/2018 INDICATION: Catheter placement TECHNIQUE: Single frontal view of the chest is obtained. FINDINGS: The heart size is enlarged. The pulmonary vasculature is normal. There is a right lower lobe infiltrate. Right pleural effusion is present. There is placement of a right side chest tube with the tip directed towards the hilum. Pleural effusi on diminished from comparison IMPRESSION: 1. Placement of a right-sided chest tube. 2. Diminished right pleural effusion.
[2018-04-15] MEDS: ACETAMINOPHEN IV (For NPO) 1,000 MG in EMPTY BAG 1 BAG IVPB SCH ×3 (13:04→23:18)
[2018-04-15 13:37] LABS: RBC, Body Fluid 17000 /uL
[2018-04-15 13:40] LABS: Nucleated Cells, Body Fluid 200 /uL
[2018-04-15 14:51] LABS: Mononuclear WBC,Body Fluid 15 %; Polynuclear WBC,Body Fluid 85 %; Total Cells Counted,Body Fluid 100
[2018-04-15 15:32] VITALS: BMI 24.6
--- NOTE | 2018-04-15 16:00 | P.OP ---
Date of Procedure: 04/15/18 Preoperative Diagnosis: Recurrent right pleural effusion Postoperative Diagnosis: Same Procedure(s) Performed: Right Pleurx catheter placement with fluoroscopy guidance Implants: Pleurx catheter Anesthesia: [facility] Surgeon: Henry Davidson Estimated Blood Loss (ml): 2 IV fluids (ml): 300 Urine output (ml): 0 Pathology: other (Cytology) Condition: stable Disposition: PACU Indications for Procedure: 82-year-old male with recurrent right pleural effusion. He has been tapped 3 times here in [facility] and also previously several times in [place]. Operative Findings: 600 mL of serous fluid were drained Description of Procedure: The patient was brought to the operating room and placed supine on the fluoroscopy table. The right arm was placed out at the side on an arm board at 90. The right chest and right upper quadrant of the abdomen were sterilely prepped and draped. P Percussion was used to identify the fluid in the right posterior lower region of the chest. Skin wheal was made with 1% lidocaine and skinny needle introduced into the fluid and the fluid identified. An 18-gauge needle was then placed into the fluid and a guidewire threaded into the pleural space under fluoroscopic guidance. The puncture site was enlarged with an 11 blade to about a centimeter. Small subcutaneous pocket was generated with a hemostat. After lidocaine instillation a counterincision was made in the right upper quadrant. Pleurx catheter was tunneled from here to the initial puncture site with the subcutaneous cuff left just under the exit site. It was secured at the exit site with a 3-0 silk suture. The introducer and dilator were placed over the guidewire into the chest cavity under fluoroscopy. The guidewire and dilator were removed and through the introducer sheath the Pleurx catheter was introduced into the chest cavity. The introducer sheath was then removed. PleurX catheter placement in the right pleural space was confirmed with fluoroscopy and the catheter was then connected to suction. The puncture site was closed with a 3-0 Vicryl stitch in 2 layers. This site was then dressed with some skin glue. Standard Pleurx dressing was applied at the exit site. The catheter had been appropriately capped and removed from suction prior to dressing. Patient was transferred to recovery in stable condition.
--- NOTE | 2018-04-15 16:23 | P.PN ---
Subjective Progress Note Date: 04/15/18 Principal diagnosis: Shortness of breath, recurrent right-sided pleural effusion Pulmonary consultation dated 04/11/2018 82-year-old male who presented to the emergency room yesterday on April 10 with complaints of increasing shortness of breath. Minimal activity causes the patient to become short of breath. He states he cannot seem to catch his breath. He has multiple admissions to this hospital for the same complaint. He denies any cough or wheezing. Not coughing up any phlegm or blood. There is no fever or chills. Apparently his saturations were low. The patient was last admitted back on April 11. He has a history of CAD aortic valve stenosis with previous bypass surgery and valve replacement chronic atrial fibrillation status post permanent pacemaker implantation left lower extremity DVT diastolic heart failure pulmonary hypertension and a host of other medical issues. In addition, he has a history of recurrent pleural effusions dating back to June 2017. He has had frequent thoracentesis. 4 Flonase typically transudate is been negative for malignancy. His most recent thoracentesis was done in February 22 of this year. In addition, the patient does have evidence of mediastinal adenopathy and recently my partner did a transbronchial needle aspiration of a precarinal node. It was negative for malignancy. 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 The patient was seen today 04/12/2018 in follow-up on the regular medical floor. He is currently sitting up in a chair at the bedside. He is awake and alert in no acute distress. He is still dyspneic with minimal exertion otherwise stable at rest. He is maintaining good O2 saturations in the 90s on 2 L/m per nasal cannula. White count 15.6. Hemoglobin 9.8. INR 3.0. Creatinine 1.00. Most recent thoracentesis fluid revealed a LDH of 124, protein 2.3. The patient has also recently undergone recent FNA of the mediastinal lymph node by Dr. Ovalle. This was reported as benign. The patient is seen again today 04/13/2018 in follow-up on the regular medical floor. Remains awake and alert in no acute distress. He is maintaining good O2 saturations in the mid 90s on 2 L/m per nasal cannula. He's been afebrile. Hemodynamically stable. He was seen and evaluated by cardiothoracic and the plan is for Pleurx catheter insertion with pleurodesis tomorrow. Today's INR 3.8. The patient is seen again today 04/15/2018 in follow-up on the regular medical floor. He is currently sitting up in a chair at the bedside. He did undergo a right-sided Pleurx catheter insertion today by CT services. He denies any worsening shortness of breath, cough or congestion. He is maintaining good O2 saturations in the 90s on room air. He's been afebrile. Hemodynamically stable. Objective - Vital Signs Vital signs: Vital Signs Temp 98.4 F 04/15/18 15:10 Pulse 60 04/15/18 15:10 Resp 16 04/15/18 15:10 BP 117/53 04/15/18 15:10 Pulse Ox 93 L 04/15/18 15:10 Intake & Output 04/14/18 04/15/18 04/15/18 18:59 06:59 18:59 Intake Total 600 240 500 Output Total 301 Balance 600 240 199 Weight 75.778 kg 75.778 kg Intake: IV 500 Oral 600 240 Output: Urine 300 Estimated Blood Loss 1 Other: # Voids 1 2 2 # Bowel Movements 2 - Exam GENERAL EXAM: Alert, active, comfortable in no apparent distress. HEAD: Normocephalic. EYES: Normal reaction of pupils, equal size. NOSE: Clear with pink turbinates. THROAT: No erythema or exudates. NECK: No masses, no JVD. CHEST: No chest wall deformity. LUNGS: Equal air entry with crackles in the right posterior base. Pleurx catheter in place.. CVS: S1 and S2 normal with no audible murmur, regular rhythm. ABDOMEN: No hepatosplenomegaly, normal bowel sounds, no guarding or rigidity. SPINE: No scoliosis or deformity SKIN: No rashes CENTRAL NERVOUS SYSTEM: No focal deficits, tone is normal in all 4 extremities. EXTREMITIES: There is no peripheral edema. No clubbing, no cyanosis. Peripheral pulses are intact. - Labs CBC & Chem 7: 04/15/18 07:44 04/15/18 07:44 Labs: Abnormal Lab Results - Last 24 Hours (Table) 04/14/18 04/14/18 04/14/18 Range/Units 11:39 17:12 20:44 WBC (3.8-10.6) k/uL RBC (4.30-5.90) m/uL Hgb (13.0-17.5) gm/dL Hct (39.0-53.0) % MCV (80.0-100.0) fL Neutrophils # (1.3-7.7) k/uL Lymphocytes # (1.0-4.8) k/uL PT (9.0-12.0) sec INR (<1.2) Sodium (137-145) mmol/L Chloride (98-107) mmol/L BUN (9-20) mg/dL Glucose (74-99) mg/dL POC Glucose (mg/dL) 152 H 139 H 178 H (75-99) mg/dL 04/15/18 04/15/18 04/15/18 Range/Units 06:58 07:44 07:44 WBC 15.4 H (3.8-10.6) k/uL RBC 3.22 L (4.30-5.90) m/uL Hgb 10.6 L (13.0-17.5) gm/dL Hct 32.5 L (39.0-53.0) % MCV 100.9 H (80.0-100.0) fL Neutrophils # 13.6 H (1.3-7.7) k/uL Lymphocytes # 0.8 L (1.0-4.8) k/uL PT 12.3 H (9.0-12.0) sec INR 1.3 H (<1.2) Sodium (137-145) mmol/L Chloride (98-107) mmol/L BUN (9-20) mg/dL Glucose (74-99) mg/dL POC Glucose (mg/dL) 132 H (75-99) mg/dL 04/15/18 04/15/18 04/15/18 Range/Units 07:44 09:04 11:54 WBC (3.8-10.6) k/uL RBC (4.30-5.90) m/uL Hgb (13.0-17.5) gm/dL Hct (39.0-53.0) % MCV (80.0-100.0) fL Neutrophils # (1.3-7.7) k/uL Lymphocytes # (1.0-4.8) k/uL PT (9.0-12.0) sec INR (<1.2) Sodium 134 L (137-145) mmol/L Chloride 94 L (98-107) mmol/L BUN 54 H (9-20) mg/dL Glucose 120 H (74-99) mg/dL POC Glucose (mg/dL) 131 H 127 H (75-99) mg/dL Assessment and Plan Assessment: Impression: #1 Acute on chronic hypoxic respiratory failure secondary to an acute exacerbation of diastolic congestive heart failure, recurrent right-sided pleural effusion and multiple previous thoracentesis most recently 03/13/2018 with 800 ML serosanguineous fluid removed. Negative for malignancy. Transudative Total protein 2.3. LDH 124. The patient had also undergone a FNA of the pericarinal lymph nodes which are reported as benign. Status post right- sided Pleurx catheter placement on 04/15/2018. #2 Acute on chronic diastolic congestive heart failure. Preserved left ventricular systolic function with ejection fraction 50-55%. #3 History of stable, loculated right pleural effusion. #4 Pericarinal lymph node measuring 2.5 x 1.7 cm, abnormal anterior superior mediastinal lymph node measuring 1.8 x 1.4 cm. Status post biopsy, benign. #5 Chronic atrial fibrillation, anticoagulated with warfarin. #6 Cardiac arrhythmia requiring permanent pacemaker implantation. #7 Remote history of DVT in 2006. #8 Hypertension. #9 Hyperlipidemia. #10 Coronary artery disease status post coronary artery bypass grafting. #11 Aortic valve stenosis status post aortic valve replacement utilizing a bioprosthetic aortic valve. #12 History of prostate cancer. #13 Chronic pain syndrome. #14 Anxiety/depression. Plan: The patient was seen and evaluated by Dr. Ovalle. He is currently stable and cleared for discharge from the pulmonary standpoint. Pleurx catheter has been placed. He will follow up with Dr. Ballard in our office.. I, the cosigning physician, performed a history & physical examination of the patient. Lungs sounds with crackles in the right posterior base and diminished. Maintaining good O2 saturations in the 90s on room air. I discussed the assessment and plan of care with my nurse practitioner, Margarita Soto. I attest to the above note as dictated by her.
[2018-04-15] MEDS: LORazepam 0.5 MG TAB PO PRN ×2 (16:38→21:04)
[2018-04-15 16:58] LABS: Glucose,Whole Blood 146 mg/dL (75-99)
[2018-04-15] MEDS ORDERED: WARFARIN 5 MG TAB PO SCH (18:00)
[2018-04-15] MEDS ORDERED: WARFARIN 2 MG TAB PO SCH (18:00)
--- NOTE | 2018-04-15 19:16 | P.PN ---
Subjective Progress Note Date: 04/15/18 Progress note being dictated for Dr. Robbins Interval history:Patient is a 82-year-old male with a known history of COPD, CHF with diastolic dysfunction and chronic hypoxic respiratory failure, history of I aortic valve replacement, DVT, hypertension, hyperlipidemia, history of [place] and prostate disorder, BPH prostate cancer with surgery, coronary artery disease with history of stent placement, pacemaker placement and multiple other medical problems came to the hospital with complaints of worsening shortness of breath. Patient was recently discharged from the hospital and was treated for acute COPD and CHF exacerbation and hypoxic respiratory failure. Patient does have recurrent right-sided pleural effusion with multiple previous thoracentesis. Negative for malignancy. Patient recently had transbronchial needle aspiration of the lymph node recently. Pathology showed benign lymph node and mononuclear cells associated with hyperpigmentation consistent with paratracheal lymph node. Negative for malignancy. Patient otherwise denied any fever or chills. Patient was having worsening leg swelling. No headache or dizziness or lightheadedness. Patient says that he had nebulizer but does not have any medications solution with that. Patient came to ER for further evaluation. Denied any comes of chest pain. No nausea vomiting or abdominal pain. Chest x-ray showed cardiomegaly. Worsening opacity in the right lung base likely representing combination of pleural fluid and atelectasis. Pneumonia is not excluded. 04/11/2018 Patient says that his breathing is slightly better today. No complaints of chest pain. Leg swelling improved. Patient is being continued on IV diuresis and we will change to oral tomorrow. Recent bronchoscopy and biopsy of the lymph node showed no malignancy. Pulmonary is following and recommends pleurodesis due to recurrent right-sided loculated pleural effusion. Patient was also recommended to elevate legs when lying on bed. Otherwise no fever no chills. All other review of systems negative except above Current medications reviewed 04/12/2018 Complains of exertional dyspnea. Maintaining O2 sats in the high 90s on 2 L nasal cannula. Afebrile, WBC 15.6. Hemoglobin 9.8. INR 3. Recurrent pleural effusions, multiple thoracentesis -cultures reported as negative for malignancy, in a patient with CHF. Cardiothoracic surgery consulted for potential Pleurx catheter. Denies chest pain, palpitations. 04/13/2018. Evaluated by cardiothoracic surgery, Pleurx catheter placement pending. Coumadin placed on hold. Maintaining O2 sats in the high 90s on 2 L nasal cannula. Afebrile. 04/14/2018 diuresing well on Lasix IV push with 24-hour I&O reflecting a decrease in weight ,maintaining O2 sats in the high 90s on 2 L nasal cannula .Coumadin on hold for pending Pleurx catheter placement with current INR 1.6. Denies chest pain, palpitations. Objective - Vital Signs Vital signs: Vital Signs Temp 98.0 F 04/14/18 17:19 Pulse 61 04/14/18 17:19 Resp 20 04/14/18 17:19 BP 141/69 04/14/18 17:19 Pulse Ox 98 04/14/18 17:19 Intake & Output 04/13/18 04/14/18 04/14/18 18:59 06:59 18:59 Intake Total 300 Balance 300 Weight 76.204 kg Intake: Oral 300 Other: Voiding Method Toilet Urinal # Voids 2 2 1 # Bowel Movements 2 - Exam PHYSICAL EXAMINATION: Patient is sitting up in chair, no acute distress, HEENT: Normocephalic. Neck is supple. Pupils reactive. Nostrils clear. Oral cavity is moist. Neck reveals no JVD, carotid bruits, or thyromegaly. CHEST EXAMINATION: Trachea is central. Symmetrical expansion. Bilateral diffuse rhonchi and fine bibasilar crackles,right base dullness CARDIAC: Normal S1, S2 with no gallops. No murmurs ABDOMEN: Soft. Bowel sounds normal. No organomegaly. No abdominal bruits. Extremities: 1+ edema. No clubbing or cyanosis Neurologically awake, alert, oriented x3 with well-coordinated movements. No focal deficits noted Skin: No rash or skin lesions. Psychiatric: Alert and oriented 3, mood and affect normal Musculoskeletal: No joint swelling or deformity. Normal range of motion. - Labs CBC & Chem 7: 04/15/18 07:44 04/15/18 07:44 Labs: Abnormal Lab Results - Last 24 Hours (Table) 04/13/18 04/14/18 04/14/18 Range/Units 20:44 07:24 08:10 WBC (3.8-10.6) k/uL RBC (4.30-5.90) m/uL Hgb (13.0-17.5) gm/dL Hct (39.0-53.0) % MCV (80.0-100.0) fL Neutrophils # (1.3-7.7) k/uL Lymphocytes # (1.0-4.8) k/uL PT 14.8 H (9.0-12.0) sec INR 1.6 H (<1.2) Sodium (137-145) mmol/L Chloride (98-107) mmol/L Carbon Dioxide (22-30) mmol/L BUN (9-20) mg/dL Glucose (74-99) mg/dL POC Glucose (mg/dL) 181 H 126 H (75-99) mg/dL 04/14/18 04/14/18 04/14/18 Range/Units 08:10 08:10 11:39 WBC 17.4 H (3.8-10.6) k/uL RBC 3.17 L (4.30-5.90) m/uL Hgb 10.4 L (13.0-17.5) gm/dL Hct 31.9 L (39.0-53.0) % MCV 100.7 H (80.0-100.0) fL Neutrophils # 15.5 H (1.3-7.7) k/uL Lymphocytes # 0.9 L (1.0-4.8) k/uL PT (9.0-12.0) sec INR (<1.2) Sodium 136 L (137-145) mmol/L Chloride 92 L (98-107) mmol/L Carbon Dioxide 35 H (22-30) mmol/L BUN 53 H (9-20) mg/dL Glucose 109 H (74-99) mg/dL POC Glucose (mg/dL) 152 H (75-99) mg/dL 04/14/18 Range/Units 17:12 WBC (3.8-10.6) k/uL RBC (4.30-5.90) m/uL Hgb (13.0-17.5) gm/dL Hct (39.0-53.0) % MCV (80.0-100.0) fL Neutrophils # (1.3-7.7) k/uL Lymphocytes # (1.0-4.8) k/uL PT (9.0-12.0) sec INR (<1.2) Sodium (137-145) mmol/L Chloride (98-107) mmol/L Carbon Dioxide (22-30) mmol/L BUN (9-20) mg/dL Glucose (74-99) mg/dL POC Glucose (mg/dL) 139 H (75-99) mg/dL Assessment and Plan Assessment: Acute on chronic hypoxic respiratory failure secondary to acute COPD and CHF exacerbation, diastolic dysfunction, along with right-sided pleural effusion Acute on chronic diastolic CHF Recurrent right-sided loculated pleural effusion and history of multiple thoracentesis. Negative for malignancy Recent transbronchial needle aspiration due to paratracheal lymphadenopathy. Negative for malignancy Chronic afibrillation on anticoagulation with Coumadin History of pacemaker placement, aortic valve replacement with bioprosthetic aortic valve History of DVT Hypertension Hyperlipidemia Prostate cancer status post surgery Chronic pain syndrome Anxiety and depression Status post bypass grafting for CAD and aortic valve replacement for aortic valve stenosis Plan: Continue on current medication regime ,monitoring and symptomatic treatment. Scheduled for right Pleurx catheter placement tomorrow- Continue holding Coumadin,NPO at midnight. Aggressive pulmonary toileting,IS .Maintain nebulized bronchodilators, systemic steroids, and Lasix. Close monitoring of renal function and electrolytes with repeat labs ordered for a.m. daily PT INR. The impression and plan of care has been dictated as directed. : I performed a history and examination of this patient, discussed the same with the dictator. I agree with the dictator's note ,documented as a scribe. Any additional findings or plans will be noted.
--- NOTE | 2018-04-15 19:25 | P.PN ---
Subjective Progress Note Date: 04/15/18 Progress note being dictated for Dr. Robbins Interval history:Patient is a 82-year-old male with a known history of COPD, CHF with diastolic dysfunction and chronic hypoxic respiratory failure, history of I aortic valve replacement, DVT, hypertension, hyperlipidemia, history of [place] and prostate disorder, BPH prostate cancer with surgery, coronary artery disease with history of stent placement, pacemaker placement and multiple other medical problems came to the hospital with complaints of worsening shortness of breath. Patient was recently discharged from the hospital and was treated for acute COPD and CHF exacerbation and hypoxic respiratory failure. Patient does have recurrent right-sided pleural effusion with multiple previous thoracentesis. Negative for malignancy. Patient recently had transbronchial needle aspiration of the lymph node recently. Pathology showed benign lymph node and mononuclear cells associated with hyperpigmentation consistent with paratracheal lymph node. Negative for malignancy. Patient otherwise denied any fever or chills. Patient was having worsening leg swelling. No headache or dizziness or lightheadedness. Patient says that he had nebulizer but does not have any medications solution with that. Patient came to ER for further evaluation. Denied any comes of chest pain. No nausea vomiting or abdominal pain. Chest x-ray showed cardiomegaly. Worsening opacity in the right lung base likely representing combination of pleural fluid and atelectasis. Pneumonia is not excluded. 04/11/2018 Patient says that his breathing is slightly better today. No complaints of chest pain. Leg swelling improved. Patient is being continued on IV diuresis and we will change to oral tomorrow. Recent bronchoscopy and biopsy of the lymph node showed no malignancy. Pulmonary is following and recommends pleurodesis due to recurrent right-sided loculated pleural effusion. Patient was also recommended to elevate legs when lying on bed. Otherwise no fever no chills. All other review of systems negative except above Current medications reviewed 04/12/2018 Complains of exertional dyspnea. Maintaining O2 sats in the high 90s on 2 L nasal cannula. Afebrile, WBC 15.6. Hemoglobin 9.8. INR 3. Recurrent pleural effusions, multiple thoracentesis -cultures reported as negative for malignancy, in a patient with CHF. Cardiothoracic surgery consulted for potential Pleurx catheter. Denies chest pain, palpitations. 04/13/2018. Evaluated by cardiothoracic surgery, Pleurx catheter placement pending. Coumadin placed on hold. Maintaining O2 sats in the high 90s on 2 L nasal cannula. Afebrile. 04/14/2018 diuresing well on Lasix IV push with 24-hour I&O reflecting a decrease in weight ,maintaining O2 sats in the high 90s on 2 L nasal cannula .Coumadin on hold for pending Pleurx catheter placement with current INR 1.6. Denies chest pain, palpitations. 04/15/18 INR 1.3. status post placement of Pleurx catheter, tolerated procedure well. Coumadin resumed as per cardiothoracic surgery. Denies increase in shortness of breath. Maintaining O2 sats in the low 90s on room air. Afebrile. Objective - Vital Signs Vital signs: Vital Signs Temp 98.4 F 04/15/18 15:10 Pulse 66 04/15/18 16:28 Resp 16 04/15/18 15:10 BP 117/53 04/15/18 15:10 Pulse Ox 93 L 04/15/18 15:10 Intake & Output 04/15/18 04/15/18 04/16/18 06:59 18:59 06:59 Intake Total 240 1100 Output Total 301 Balance 240 799 Weight 75.778 kg 75.778 kg Intake: IV 500 Oral 240 600 Output: Urine 300 Estimated Blood Loss 1 Other: # Voids 2 1 - Exam PHYSICAL EXAMINATION: Patient is sitting up in chair, no acute distress, HEENT: Normocephalic. Neck is supple. Pupils reactive. Nostrils clear. Oral cavity is moist. Neck reveals no JVD, carotid bruits, or thyromegaly. CHEST EXAMINATION: Trachea is central. Symmetrical expansion. Bilateral diffuse rhonchi and fine bibasilar crackles, right Pleurx catheter present CARDIAC: Normal S1, S2 with no gallops. No murmurs ABDOMEN: Soft. Bowel sounds normal. No organomegaly. No abdominal bruits. Extremities: Minimal edema. No clubbing or cyanosis Neurologically awake, alert, oriented x3 with well-coordinated movements. No focal deficits noted Skin: No rash or skin lesions. Psychiatric: Alert and oriented 3, mood and affect normal Musculoskeletal: No joint swelling or deformity. Normal range of motion. - Labs CBC & Chem 7: 04/15/18 07:44 04/15/18 07:44 Labs: Abnormal Lab Results - Last 24 Hours (Table) 04/14/18 04/15/18 04/15/18 Range/Units 20:44 06:58 07:44 WBC (3.8-10.6) k/uL RBC (4.30-5.90) m/uL Hgb (13.0-17.5) gm/dL Hct (39.0-53.0) % MCV (80.0-100.0) fL Neutrophils # (1.3-7.7) k/uL Lymphocytes # (1.0-4.8) k/uL PT 12.3 H (9.0-12.0) sec INR 1.3 H (<1.2) Sodium (137-145) mmol/L Chloride (98-107) mmol/L BUN (9-20) mg/dL Glucose (74-99) mg/dL POC Glucose (mg/dL) 178 H 132 H (75-99) mg/dL 04/15/18 04/15/18 04/15/18 Range/Units 07:44 07:44 09:04 WBC 15.4 H (3.8-10.6) k/uL RBC 3.22 L (4.30-5.90) m/uL Hgb 10.6 L (13.0-17.5) gm/dL Hct 32.5 L (39.0-53.0) % MCV 100.9 H (80.0-100.0) fL Neutrophils # 13.6 H (1.3-7.7) k/uL Lymphocytes # 0.8 L (1.0-4.8) k/uL PT (9.0-12.0) sec INR (<1.2) Sodium 134 L (137-145) mmol/L Chloride 94 L (98-107) mmol/L BUN 54 H (9-20) mg/dL Glucose 120 H (74-99) mg/dL POC Glucose (mg/dL) 131 H (75-99) mg/dL 04/15/18 04/15/18 Range/Units 11:54 16:39 WBC (3.8-10.6) k/uL RBC (4.30-5.90) m/uL Hgb (13.0-17.5) gm/dL Hct (39.0-53.0) % MCV (80.0-100.0) fL Neutrophils # (1.3-7.7) k/uL Lymphocytes # (1.0-4.8) k/uL PT (9.0-12.0) sec INR (<1.2) Sodium (137-145) mmol/L Chloride (98-107) mmol/L BUN (9-20) mg/dL Glucose (74-99) mg/dL POC Glucose (mg/dL) 127 H 146 H (75-99) mg/dL Assessment and Plan Assessment: Acute on chronic hypoxic respiratory failure secondary to acute COPD and CHF exacerbation, diastolic dysfunction, along with right-sided pleural effusion Acute on chronic diastolic CHF Recurrent right-sided loculated pleural effusion and history of multiple thoracentesis. Negative for malignancy, status post Pleurx catheter placement. Recent transbronchial needle aspiration due to paratracheal lymphadenopathy. Negative for malignancy Chronic afibrillation on anticoagulation with Coumadin History of pacemaker placement, aortic valve replacement with bioprosthetic aortic valve History of DVT Hypertension Hyperlipidemia Prostate cancer status post surgery Chronic pain syndrome Anxiety and depression Status post bypass grafting for CAD and aortic valve replacement for aortic valve stenosis Plan: Continue on current medication regime ,monitoring and symptomatic treatment. Pleurx catheter placed. Lasix converted to oral. Discharge planning in progress for tomorrow. Anticoagulation resumed. The impression and plan of care has been dictated as directed. : I performed a history and examination of this patient, discussed the same with the dictator. I agree with the dictator's note ,documented as a scribe. Any additional findings or plans will be noted.
[2018-04-15] MEDS: traZODone HCL 100 MG TAB PO SCH (21:04)
[2018-04-15] MEDS: ATORVASTATIN 10 MG TAB PO SCH (21:04)
[2018-04-15 21:07] LABS: Total Protein, Body Fluid 1480 mg/dL
[2018-04-15 21:23] LABS: Glucose,Whole Blood 170 mg/dL (75-99)
[2018-04-16] MEDS: methylPREDNISolone SOD SUCCI 40 MG/ML 1 ML VIAL IV SCH (05:30)
[2018-04-16] MEDS: ACETAMINOPHEN IV (For NPO) 1,000 MG in EMPTY BAG 1 BAG IVPB SCH (05:40)
[2018-04-16 07:40] LABS: Glucose,Whole Blood 133 mg/dL (75-99)
[2018-04-16] MEDS: INSULIN ASPART 100 UNIT/ML 1 ML 10 ML VIAL SQ SCH ×2 (07:55→13:27)
[2018-04-16 08:07] VITALS: RESP 16
[2018-04-16] MEDS: IPRATROPIUM-ALBUTEROL 3 ML NEB INHALATION SCH ×2 (08:08→11:32)
[2018-04-16] MEDS: SYMBICORT 160-4.5 MCG INHALER INHALATION SCH (08:08)
--- NOTE | 2018-04-16 08:20 | XR ---
EXAMINATION TYPE: XR chest 2V DATE OF EXAM: 04/16/2018 HISTORY: Shortness of breath. COMPARISON: April 15, 2018 TECHNIQUE: Single view of the chest is submitted. FINDINGS: Demonstrated are scattered senescent parenchymal change. Persistent right basilar pleural effusion as well as patchy density right lower lobe. Pulmonary venou s congestion has improved. Continued cardiomegaly. Hilar and mediastinal structures are within normal limits. Degenerative changes are seen of the dorsal spine. IMPRESSION: 1. Persistent right basilar pleural effusion as well as patchy density right lower lobe. Pulmonary v enous congestion has improved. Continued cardiomegaly.
[2018-04-16] MEDS ORDERED: FUROSEMIDE 40 MG TAB PO SCH (09:00)
[2018-04-16] MEDS: CARVEDILOL 12.5 MG TAB PO SCH (09:00)
[2018-04-16] MEDS ORDERED: predniSONE 20 MG TAB PO SCH (09:00)
[2018-04-16] MEDS: HEPARIN SODIUM,PORCINE 5,000 UNIT/ML 1 ML VIAL SQ SCH (09:01)
[2018-04-16] MEDS: FERROUS SULFATE 325 MG TAB PO SCH (09:02)
[2018-04-16] MEDS: DOCUSATE 100 MG CAP PO SCH (09:02)
[2018-04-16] MEDS: LISINOPRIL 2.5 MG TAB PO SCH (09:03)
[2018-04-16] MEDS: MORPHINE SULFATE ER 60 MG TABLET PO SCH (09:03)
[2018-04-16] MEDS: SUCRALFATE 1 GM TAB PO SCH (09:04)
[2018-04-16] MEDS: PANTOPRAZOLE 40 MG TABLET PO SCH (09:04)
[2018-04-16] MEDS: POLYETHYLENE GLYCOL 3350 17 GM POWD.PACK PO SCH (09:04)
[2018-04-16 09:53] LABS: Basophils % (A) 0 %; Eosinophils % (A) 0 %; HCT 30.5 % (39.0-53.0); HGB 9.9 gm/dL (13.0-17.5); Lymphocytes # (A) 0.4 k/uL (1.0-4.8); Lymphocytes % (A) 3 %; MCHC 32.3 g/dL (31.0-37.0); MCV 102.3 fL (80.0-100.0); Macrocytosis Slight; Mean Platelet Volume 6.3; Monocytes # (A) 0.6 k/uL (0-1.0); Monocytes % (A) 4 %; Neutrophils # (A) 13.4 k/uL (1.3-7.7); Neutrophils % (A) 92 %; Platelet Count 246 k/uL (150-450); RBC 2.98 m/uL (4.30-5.90); RDW 14.4 % (11.5-15.5); WBC 14.6 k/uL (3.8-10.6)
[2018-04-16 09:58] LABS: INR 1.3 (<1.2); Prothrombin Time 12.3 sec (9.0-12.0)
[2018-04-16 10:14] LABS: Calcium 8.6 mg/dL (8.4-10.2); Potassium 4.7 mmol/L (3.5-5.1)
--- NOTE | 2018-04-16 10:55 | P.PN ---
Subjective Progress Note Date: 04/16/18 Principal diagnosis: Recurrent right pleural effusion. Previous medical history of COPD, previous tobacco dependence, home oxygen use, pneumonia, multiple admissions for recurrent right-sided pleural effusion status post thoracentesis 3, negative for malignancy, CAD with stent placement, aortic valve stenosis, previous CABG and bioprosthetic aortic valve replacement along with mitral and tricuspid repair in 2012, chronic atrial fibrillation on home Coumadin therapy, permanent pacemaker implantation, left lower extremity DVT in 2006, diastolic heart failure, pulmonary hypertension. POD #1 right Pleurx catheter placement with fluoroscopy guidance, drainage of 600 mL serous fluid. Patient is currently sitting up in chair in no acute distress. States pain is well controlled on current medication regimen. Denies shortness of breath. Hemodynamically stable with no new complaints. Objective - Vital Signs Vital signs: Vital Signs Temp 97.8 F 04/16/18 06:50 Pulse 68 04/16/18 08:16 Resp 16 04/16/18 06:50 BP 156/72 04/16/18 06:50 Pulse Ox 100 04/16/18 06:50 Intake & Output 04/15/18 04/16/18 04/16/18 18:59 06:59 18:59 Intake Total 1100 Output Total 301 300 Balance 799 -300 Weight 75.778 kg 75.977 kg Intake: IV 500 Oral 600 Output: Chest Tube Drainage 300 Pleural Catheter Right 300 Right Pleural/Mediastinal Urine 300 Estimated Blood Loss 1 Other: Voiding Method Toilet Urinal # Voids 1 1 - Constitutional General appearance: Present: cooperative, no acute distress - Respiratory Details: Lungs sounds diminished bilaterally, right greater than left. Respirations even , nonlabored. Currently on room air with oxygen saturation 99%. Right Pleurx catheter in place, drained this morning for 300 mL straw-colored fluid. - Cardiovascular Details: S1, S2 present. Regular rate and rhythm. Palpable peripheral pulses bilaterally. No edema present. No calf pain or tenderness noted. - Gastrointestinal Gastrointestinal Comment(s): Abdomen soft, nontender, nondistended. Active bowel sounds 4 quadrants. Tolerating diet. - Genitourinary Genitourinary Comment(s): Continues to void clear, yellow urine. - Integumentary Integumentary Comment(s): Skin is warm and dry without evidence of perfusion. Dressing over right Pleurx catheter site clean dry and intact. - Neurologic Neurologic: Present: CNII-XII intact - Musculoskeletal Musculoskeletal: Present: gait normal, strength equal bilaterally - Psychiatric Psychiatric: Present: A&O x's 3, appropriate affect, intact judgment & insight - Allied health notes Allied health notes reviewed: nursing - Labs CBC & Chem 7: 04/16/18 09:03 04/16/18 09:03 Labs: Abnormal Lab Results - Last 24 Hours (Table) 04/15/18 04/15/18 04/15/18 Range/Units 11:54 16:39 21:21 WBC (3.8-10.6) k/uL RBC (4.30-5.90) m/uL Hgb (13.0-17.5) gm/dL Hct (39.0-53.0) % MCV (80.0-100.0) fL Neutrophils # (1.3-7.7) k/uL Lymphocytes # (1.0-4.8) k/uL PT (9.0-12.0) sec INR (<1.2) Sodium (137-145) mmol/L Chloride (98-107) mmol/L Carbon Dioxide (22-30) mmol/L BUN (9-20) mg/dL Glucose (74-99) mg/dL POC Glucose (mg/dL) 127 H 146 H 170 H (75-99) mg/dL 04/16/18 04/16/18 04/16/18 Range/Units 06:56 09:03 09:03 WBC 14.6 H (3.8-10.6) k/uL RBC 2.98 L (4.30-5.90) m/uL Hgb 9.9 L (13.0-17.5) gm/dL Hct 30.5 L (39.0-53.0) % MCV 102.3 H (80.0-100.0) fL Neutrophils # 13.4 H (1.3-7.7) k/uL Lymphocytes # 0.4 L (1.0-4.8) k/uL PT (9.0-12.0) sec INR (<1.2) Sodium 132 L (137-145) mmol/L Chloride 93 L (98-107) mmol/L Carbon Dioxide 32 H (22-30) mmol/L BUN 49 H (9-20) mg/dL Glucose 146 H (74-99) mg/dL POC Glucose (mg/dL) 133 H (75-99) mg/dL 04/16/18 Range/Units 09:03 WBC (3.8-10.6) k/uL RBC (4.30-5.90) m/uL Hgb (13.0-17.5) gm/dL Hct (39.0-53.0) % MCV (80.0-100.0) fL Neutrophils # (1.3-7.7) k/uL Lymphocytes # (1.0-4.8) k/uL PT 12.3 H (9.0-12.0) sec INR 1.3 H (<1.2) Sodium (137-145) mmol/L Chloride (98-107) mmol/L Carbon Dioxide (22-30) mmol/L BUN (9-20) mg/dL Glucose (74-99) mg/dL POC Glucose (mg/dL) (75-99) mg/dL - Imaging and Cardiology Chest x-ray: report reviewed, image reviewed Assessment and Plan (1) Recurrent right pleural effusion Current Visit: Yes Status: Acute Code(s): J90 - PLEURAL EFFUSION, NOT ELSEWHERE CLASSIFIED SNOMED Code(s): 33471308 (2) Chronic anemia Current Visit: Yes Status: Chronic Code(s): D64.9 - ANEMIA, UNSPECIFIED SNOMED Code(s): 655515705 (3) COPD (chronic obstructive pulmonary disease) Current Visit: Yes Status: Chronic Code(s): J44.9 - CHRONIC OBSTRUCTIVE PULMONARY DISEASE, UNSPECIFIED SNOMED Code(s): 07080134 (4) Hypertension Current Visit: Yes Status: Chronic Code(s): I10 - ESSENTIAL (PRIMARY) HYPERTENSION SNOMED Code(s): 42411587 Plan: 1. Right Pleurx catheter drained this morning for 300 mL straw-colored fluid. Dressing reapplied. 2. Pain control with current medication regimen. 3. Encourage incentive spirometry is 10 times every hour while awake. 4. Increase activity, ambulate in hallway. 5. Patient may be discharged to home with home care from our standpoint. He can be drained 2-3 times a week as tolerated. No more than 1 L drained at a time. Home care to call surgery office or fax weekly drainage amounts. Time with Patient: Greater than 30
[2018-04-16 11:41] LABS: Glucose,Whole Blood 180 mg/dL (75-99)
[2018-04-16] MEDS: MULTIVITAMINS, THERA 1 EACH TAB PO SCH (13:27)
[2018-04-16 16:04] VITALS: BP 126/57; PULSE 64; TEMP 97.9
--- NOTE | 2018-04-16 22:33 | P.DS ---
Providers Date of admission: 04/10/18 14:02 Expected date of discharge: 04/16/18 Attending physician: Drew Robbins Consults: 04/10/18 14:02 Consult Physician Routine Consulting Provider: Jae Ovalle Consult Reason/Comments: loida Do you want consulting provider notified?: Yes 04/12/18 14:45 Consult Physician Routine Consulting Provider: Henry Davidson Consult Reason/Comments: Recurrent right-sided pleural effusions status post multiple thoracentesis. Do you want consulting provider notified?: Yes Primary care physician: Adolfo Lieberman DO Hospital Course: Final Diagnoses: Acute on chronic hypoxic respiratory failure secondary to acute COPD and CHF exacerbation, diastolic dysfunction, along with right-sided pleural effusion Acute on chronic diastolic CHF Recurrent right-sided loculated pleural effusion and history of multiple thoracentesis. Negative for malignancy, status post Pleurx catheter placement. Recent transbronchial needle aspiration due to paratracheal lymphadenopathy. Negative for malignancy Chronic afibrillation on anticoagulation with Coumadin History of pacemaker placement, aortic valve replacement with bioprosthetic aortic valve History of DVT Hypertension Hyperlipidemia Prostate cancer status post surgery Chronic pain syndrome Anxiety and depression Status post bypass grafting for CAD and aortic valve replacement for aortic valve stenosis Hospital course:Patient is a 82-year-old male with a known history of COPD, CHF with diastolic dysfunction and chronic hypoxic respiratory failure, history of I aortic valve replacement, DVT, hypertension, hyperlipidemia, history of CO and prostate disorder, BPH prostate cancer with surgery, coronary artery disease with history of stent placement, pacemaker placement and multiple other medical problems came to the hospital with complaints of worsening shortness of breath. Patient was recently discharged from the hospital and was treated for acute COPD and CHF exacerbation and hypoxic respiratory failure. Patient does have recurrent right-sided pleural effusion with multiple previous thoracentesis. Negative for malignancy. Patient recently had transbronchial needle aspiration of the lymph node recently. Pathology showed benign lymph node and mononuclear cells associated with hyperpigmentation consistent with paratracheal lymph node. Negative for malignancy. Patient otherwise denied any fever or chills. Patient was having worsening leg swelling. No headache or dizziness or lightheadedness. Patient says that he had nebulizer but does not have any medications solution with that. Patient came to ER for further evaluation. Denied any comes of chest pain. No nausea vomiting or abdominal pain. Chest x-ray showed cardiomegaly. Worsening opacity in the right lung base likely representing combination of pleural fluid and atelectasis. Pneumonia is not excluded. 04/11/2018 Patient says that his breathing is slightly better today. No complaints of chest pain. Leg swelling improved. Patient is being continued on IV diuresis and we will change to oral tomorrow. Recent bronchoscopy and biopsy of the lymph node showed no malignancy. Pulmonary is following and recommends pleurodesis due to recurrent right-sided loculated pleural effusion. Patient was also recommended to elevate legs when lying on bed. Otherwise no fever no chills. All other review of systems negative except above Current medications reviewed 04/12/2018 Complains of exertional dyspnea. Maintaining O2 sats in the high 90s on 2 L nasal cannula. Afebrile, WBC 15.6. Hemoglobin 9.8. INR 3. Recurrent pleural effusions, multiple thoracentesis -cultures reported as negative for malignancy, in a patient with CHF. Cardiothoracic surgery consulted for potential Pleurx catheter. Denies chest pain, palpitations. 04/13/2018. Evaluated by cardiothoracic surgery, Pleurx catheter placement pending. Coumadin placed on hold. Maintaining O2 sats in the high 90s on 2 L nasal cannula. Afebrile. 04/14/2018 diuresing well on Lasix IV push with 24-hour I&O reflecting a decrease in weight ,maintaining O2 sats in the high 90s on 2 L nasal cannula .Coumadin on hold for pending Pleurx catheter placement with current INR 1.6. Denies chest pain, palpitations. 04/15/18 INR 1.3. status post placement of Pleurx catheter, tolerated procedure well. Coumadin resumed as per cardiothoracic surgery. Denies increase in shortness of breath. Maintaining O2 sats in the low 90s on room air. Afebrile. 04/16/18 Pleurx catheter draining serous fluid,anticoagulation resumed.cleared by cardiothoracic surgery and pulmonary for discharge.significant clinical improvement.patient is being discharged home in a stable condition with guarded prognosis. follow-up PT/INR, CBC, BMP on Thursday04/19/18 with PCP. Exam Patient is sitting up in chair, no acute distress, CHEST EXAMINATION: Trachea is central. Symmetrical expansion.bilateral bases diminished, right greater than left. right Pleurx catheter present with serous drainage CARDIAC: Normal S1, S2 with no gallops. No murmurs ABDOMEN: Soft. Bowel sounds normal. No organomegaly. No abdominal bruits. Neurologically No focal deficits noted The impression and plan of care has been dictated as directed. : I performed a history and examination of this patient, discussed the same with the dictator. I agree with the dictator's note ,documented as a scribe. Any additional findings or plans will be noted. Time taken: 35 minutes Patient Condition at Discharge: Stable Plan - Discharge Summary New Discharge Prescriptions: New predniSONE 10 mg PO DIRECTED #30 tab Continue Ferrous Sulfate [Iron (65 MG Elemental)] 325 mg PO DAILY Carvedilol 25 mg PO DAILY oxyCODONE HCL 15 mg PO BID PRN PRN Reason: Pain LORazepam [Ativan] 0.5 mg PO QID PRN PRN Reason: Anxiety Ubidecarenone [Co Q-10] 200 mg PO DAILY Lovastatin [Mevacor] 20 mg PO HS traZODone HCL 100 mg PO HS Warfarin [Coumadin] 5 mg PO HS Furosemide [Lasix] 40 mg PO BID #60 tablet Polyethylene Glycol 3350 [Miralax] 17 gm PO DAILY powd.pack Lisinopril [Zestril] 2.5 mg PO DAILY Promethazine HCl 12.5 mg PO BID PRN PRN Reason: Nausea Morphine Sulfate [Ms Contin] 60 mg PO Q12HR Multivitamins, Thera [Multivitamin (formulary)] 1 tab PO DAILY Pantoprazole [Protonix] 40 mg PO DAILY Sucralfate [Carafate] 1 gm PO BID Warfarin Sodium 2 mg PO HS Docusate [Colace] 100 mg PO BID cap Lactulose [Cephulac] 30 gm PO TID PRN ml PRN Reason: Constipation Sennosides [Senokot] 8.6 mg PO DAILY PRN tab PRN Reason: Constipation Budesonide-Formot 160-4.5 Mcg [Symbicort 160-4.5 Mcg Inhaler] 2 puff INHALATION RT-BID Ipratropium-Albuterol Nebulize [Duoneb 0.5 mg-3 mg/3 ml Soln] 3 ml INHALATION RT-QID Discontinued Cefuroxime Axetil [Ceftin] 500 mg PO BID #10 tab predniSONE See Taper PO DIRECTED Discharge Medication List Carvedilol 25 mg PO DAILY 06/19/15 [History] Ferrous Sulfate [Iron (65 MG Elemental)] 325 mg PO DAILY 06/19/15 [History] oxyCODONE HCL 15 mg PO BID PRN 06/19/15 [History] LORazepam [Ativan] 0.5 mg PO QID PRN 07/28/16 [History] Ubidecarenone [Co Q-10] 200 mg PO DAILY 07/28/16 [History] Lovastatin [Mevacor] 20 mg PO HS 11/20/17 [History] Warfarin [Coumadin] 5 mg PO HS 11/20/17 [History] traZODone HCL 100 mg PO HS 11/20/17 [History] Furosemide [Lasix] 40 mg PO BID #60 tablet 11/21/17 [Rx] Polyethylene Glycol 3350 [Miralax] 17 gm PO DAILY powd.pack 02/07/18 [Rx] Lisinopril [Zestril] 2.5 mg PO DAILY 03/10/18 [History] Promethazine HCl 12.5 mg PO BID PRN 03/10/18 [History] Morphine Sulfate [Ms Contin] 60 mg PO Q12HR 04/01/18 [History] Multivitamins, Thera [Multivitamin (formulary)] 1 tab PO DAILY 04/01/18 [History ] Pantoprazole [Protonix] 40 mg PO DAILY 04/01/18 [History] Sucralfate [Carafate] 1 gm PO BID 04/01/18 [History] Warfarin Sodium 2 mg PO HS 04/01/18 [History] Docusate [Colace] 100 mg PO BID cap 04/05/18 [Rx] Lactulose [Cephulac] 30 gm PO TID PRN ml 04/05/18 [Rx] Sennosides [Senokot] 8.6 mg PO DAILY PRN tab 04/05/18 [Rx] Budesonide-Formot 160-4.5 Mcg [Symbicort 160-4.5 Mcg Inhaler] 2 puff INHALATION RT-BID 04/10/18 [History] Ipratropium-Albuterol Nebulize [Duoneb 0.5 mg-3 mg/3 ml Soln] 3 ml INHALATION RT -QID 04/10/18 [History] predniSONE 10 mg PO DIRECTED #30 tab 04/16/18 [Rx] Follow up Appointment(s)/Referral(s): Kiran Pope, [NON-STAFF] - 1 Week (Homecare will call and set up apppointment to meet you at home. Will drain your catheter for you. ) Adolfo Lieberman, [Primary Care Provider] - 3 Days (Please call and schedule appointment, office currently closed for lunch. ) Jae Ovalle MD [STAFF PHYSICIAN] - 2 Weeks Ambulatory/Diagnostic Orders: Prothrombin Time INR [LAB.AMB] Time Frame: 04/19/18, Location: None Selected Patient Instructions/Handouts: Heart Failure (DC), Chest Tubes (DC), COPD ( Chronic Obstructive Pulmonary Disease) (DC), How to Care for Your Chest or Abdominal Catheter (DC) Activity/Diet/Wound Care/Special Instructions: PleurX catheter to be drained 3x per week by home care. Home care to call surgery office at [phone] or fax to office at [phone] weekly drainage amounts. Patient may shower daily, keep drain site covered and dry. Call surgeon's office if fever over 101F or purulent drainage. To order more PlureX catheter drainage supplies contact [facility] [employer] at [phone]. Discharge Disposition: HOME WITH HOME HEALTH SERVICES
== END 2018-04-16 15:12 | disposition home health service (06) | DRG 291 ==
LOC: EC 11:19 → 4MS4W 14:02
PROVIDERS: ADMIT Hospitalist; ATTEND Hospitalist
PROC: 0W9930Z Drainage of Right Pleural Cavity with Drainage Device, Percutaneous Approach (ICD-10-PCS; principal; 2018-04-15 09:45)
DX: I11.0 Hypertensive heart disease with heart failure (principal); J96.21 Acute and chronic respiratory failure with hypoxia; J44.1 Chronic obstructive pulmonary disease with (acute) exacerbation; J98.11 Atelectasis; J90 Pleural effusion, not elsewhere classified; D64.9 Anemia, unspecified; E78.5 Hyperlipidemia, unspecified; G89.4 Chronic pain syndrome; I25.10 Atherosclerotic heart disease of native coronary artery without angina pectoris; I25.2 Old myocardial infarction; I27.20 Pulmonary hypertension, unspecified; I48.2 Chronic atrial fibrillation; I50.33 Acute on chronic diastolic (congestive) heart failure; K21.9 Gastro-esophageal reflux disease without esophagitis; N40.0 Benign prostatic hyperplasia without lower urinary tract symptoms; M79.605 Pain in left leg; F41.9 Anxiety disorder, unspecified; F32.9 Major depressive disorder, single episode, unspecified; Z79.01 Long term (current) use of anticoagulants; Z79.51 Long term (current) use of inhaled steroids; Z79.899 Other long term (current) drug therapy; Z86.718 Personal history of other venous thrombosis and embolism; Z85.46 Personal history of malignant neoplasm of prostate; Z87.01 Personal history of pneumonia (recurrent); Z87.891 Personal history of nicotine dependence; Z95.0 Presence of cardiac pacemaker; Z95.1 Presence of aortocoronary bypass graft; Z95.3 Presence of xenogenic heart valve; Z95.5 Presence of coronary angioplasty implant and graft; Z99.81 Dependence on supplemental oxygen; Z90.49 Acquired absence of other specified parts of digestive tract; Z90.79 Acquired absence of other genital organ(s); Z98.42 Cataract extraction status, left eye; Z98.41 Cataract extraction status, right eye; Z96.1 Presence of intraocular lens; Z82.49 Family history of ischemic heart disease and other diseases of the circulatory system; Z80.42 Family history of malignant neoplasm of prostate
CPT/HCPCS: 36415; 71045; 71046; 77001; 80048; 80053; 82550; 82553; 82945; 83615; 83735; 83880; 84157; 84484; 85025; 85610; 85730; 88108; 88305; 89050; 93005; 94640; 94760; 96360; 96361; 99285

== ENCOUNTER 2018-05-22 00:12 | Inpatient (IN) | payer MEDICARE ==
[2018-05-22 01:26] LABS: Basophils % (A) 0 %; Eosinophils # (A) 0.1 k/uL (0-0.7); Eosinophils % (A) 2 %; HCT 26.5 % (39.0-53.0); HGB 8.5 gm/dL (13.0-17.5); Lymphocytes # (A) 1.1 k/uL (1.0-4.8); Lymphocytes % (A) 13 %; MCH 33.5 pg (25.0-35.0); MCHC 32.3 g/dL (31.0-37.0); MCV 103.9 fL (80.0-100.0); Macrocytosis Slight; Mean Platelet Volume 6.5; Monocytes # (A) 0.8 k/uL (0-1.0); Monocytes % (A) 9 %; Neutrophils # (A) 6.6 k/uL (1.3-7.7); Neutrophils % (A) 73 %; Platelet Count 285 k/uL (150-450); RBC 2.55 m/uL (4.30-5.90); WBC 9.1 k/uL (3.8-10.6)
[2018-05-22 01:36] LABS: INR 2.7 (<1.2); Partial Thromboplastin Time 30.3 sec (22.0-30.0); Prothrombin Time 23.9 sec (9.0-12.0)
--- NOTE | 2018-05-22 01:37 | XR ---
EXAMINATION TYPE: XR chest 2V DATE OF EXAM: 05/22/2018 COMPARISON: 04/16/2018 HISTORY: Fever TECHNIQUE: Frontal and lateral views of the chest are obtained. FINDINGS: Heart is enlarged. There is pulmonary vascular congestion. There is some consolidation in the right lower lobe. There is blunting of right costophrenic angle. There is left axillary pacemaker with the lead tips in the right ventricle. IMPRESSION: Congestive heart failure with right pleural effusion. Pulmonary edema. There is increasi ng heart failure and right lower lobe pneumonia compared to last exam.
[2018-05-22 01:40] LABS: Albumin 3.3 g/dL (3.5-5.0); Calcium 8.6 mg/dL (8.4-10.2); Potassium 4.4 mmol/L (3.5-5.1); Total Bilirubin 0.6 mg/dL (0.2-1.3)
--- NOTE | 2018-05-22 01:42 | ED ---
SOB HPI - General Chief Complaint: Shortness of Breath Stated Complaint: JOSELO,low blood Time Seen by Provider: 05/22/18 00:34 Source: patient Mode of arrival: wheelchair Limitations: physical limitation - History of Present Illness Initial Comments: Patient is an 82-year-old male with an extensive past medical history comes to the emergency department today for evaluation of worsening fatigue and shortness of breath. Patient has extensive history congestive heart failure recurrent pleural effusions for which she has a pleural catheter and receives pleurocentesis every 2 days. Patient reports that over the past day or 2 he has felt progressively worse, he feels more fatigued and short of breath. He was evaluated by his his admission yesterday, basic lab work did reveal a hemoglobin dropped to 8 from a baseline of 11. Patient denies any active bleeding, easy bruising. He denies any hematuria hematemesis or obvious blood in his stool. She reports she has been compliant with all of his medical regimen including getting his right lung drained, taking his home medications. Keron this he reports that he is progressively felt weaker and weaker and this evening just felt too weak to care for himself at home. - Related Data Home Medications Medication Instructions Recorded Confirmed Carvedilol 25 mg PO DAILY 06/19/15 04/10/18 Ferrous Sulfate [Iron (65 MG 325 mg PO DAILY 06/19/15 04/10/18 Elemental)] oxyCODONE HCL 15 mg PO BID PRN 06/19/15 04/10/18 LORazepam [Ativan] 0.5 mg PO QID PRN 07/28/16 04/10/18 Ubidecarenone [Co Q-10] 200 mg PO DAILY 07/28/16 04/10/18 Lovastatin [Mevacor] 20 mg PO HS 11/20/17 04/10/18 Warfarin [Coumadin] 5 mg PO HS 11/20/17 04/10/18 traZODone HCL 100 mg PO HS 11/20/17 04/10/18 Lisinopril [Zestril] 2.5 mg PO DAILY 03/10/18 04/10/18 Promethazine HCl 12.5 mg PO BID PRN 03/10/18 04/10/18 Morphine Sulfate [Ms Contin] 60 mg PO Q12HR 04/01/18 04/10/18 Multivitamins, Thera [Multivitamin 1 tab PO DAILY 04/01/18 04/10/18 (formulary)] Pantoprazole [Protonix] 40 mg PO DAILY 04/01/18 04/10/18 Sucralfate [Carafate] 1 gm PO BID 04/01/18 04/10/18 Warfarin Sodium 2 mg PO HS 04/01/18 04/10/18 Budesonide-Formot 160-4.5 Mcg 2 puff INHALATION RT-BID 04/10/18 04/10/18 [Symbicort 160-4.5 Mcg Inhaler] Ipratropium-Albuterol Nebulize 3 ml INHALATION RT-QID 04/10/18 04/10/18 [Duoneb 0.5 mg-3 mg/3 ml Soln] Previous Rx's Medication Instructions Recorded Furosemide [Lasix] 40 mg PO BID #60 tablet 11/21/17 Polyethylene Glycol 3350 [Miralax] 17 gm PO DAILY powd.pack 02/07/18 Docusate [Colace] 100 mg PO BID cap 04/05/18 Lactulose [Cephulac] 30 gm PO TID PRN ml 04/05/18 Sennosides [Senokot] 8.6 mg PO DAILY PRN tab 04/05/18 predniSONE 10 mg PO DIRECTED #30 tab 04/16/18 Allergies Allergy/AdvReac Type Severity Reaction Status Date / Time No Known Allergies Allergy Verified 05/22/18 03:31 Review of Systems ROS Statement: Those systems with pertinent positive or pertinent negative responses have been documented in the HPI. ROS Other: All systems not noted in ROS Statement are negative. Past Medical History Past Medical History: Atrial Fibrillation, Coronary Artery Disease (CAD), Cancer , Chest Pain / Angina, Heart Failure, COPD, Deep Vein Thrombosis (DVT), GERD/ Reflux, Hyperlipidemia, Hypertension, Myocardial Infarction ([place]), Pneumonia, Prostate Disorder Additional Past Medical History / Comment(s): Home O2 at 3L/NC lately ATC, recurrent R pleural effusions, thoracic adenopathy, pneumonia with sepsis, bronchitis, bilateral lower leg edema/redness L lower leg, L leg DVT in 2006, chronic L leg pain/ neurological damage, BPH, prostrate cancer with surgery, constipation, recently had 4 teeth extracted, Last Myocardial Infarction Date:: 2005 History of Any Multi-Drug Resistant Organisms: None Reported Past Surgical History: Appendectomy, Cardiac Valve Replacement, Cholecystectomy , Heart Catheterization, Heart Catheterization With Stent, Hernia Repair, Pacemaker, Prostate Surgery Additional Past Surgical History / Comment(s): 2016 aortic valve replacement, bilateral cataracts removal, prostatectomy, penile implant x2, R sided thoracentesises, bilateral inguinal hernia repair, L leg dvt surgically removed , colonoscopies. Past Anesthesia/Blood Transfusion Reactions: Previous Problems w/ Anesthesia Additional Past Anesthesia/Blood Transfusion Reaction / Comment(s): "one time BP dropped too low" Date of Last Stent Placement:: 2005 Type of Cardiac Device: Permanent Pacemaker Device Placement Date:: 2004? Past Psychological History: Anxiety Smoking Status: Former smoker Past Alcohol Use History: None Reported Past Drug Use History: None Reported - Past Family History Brother(s) Family Medical History: Cancer Sister(s) Family Medical History: Cancer Father Family Medical History: Cancer Additional Family Medical History / Comment(s): Father had prostrate cancer. He had CAD/CABG. He at the age of 78yrs during coronary angioplasty. Mother Family Medical History: Myocardial Infarction ([place]) Additional Family Medical History / Comment(s): Mother had a [place] at the age of 35yrs. She had CABG. She lived to be 93 yrs old. General Exam - General Exam Comments Initial Comments: GENERAL: Chronically ill-appearing, oxygen-dependent Nontoxic HENT: Normocephalic, Atraumatic. EYES: PERRL Conjunctiva are pink but pale PULMONARY: Wheezing, decreased breath sounds on the right CARDIOVASCULAR: Regular rate and rhythm, systolic murmur ABDOMEN: Soft and nontender with normal bowel sounds. Guaiac is positive SKIN: Skin is pale NEUROLOGIC: Patient is alert and oriented x3. Cranial nerves II through XII are grossly intact. MUSCULOSKELETAL: Normal extremities with adequate strength and full range of motion. LYMPHATICS: No significant lymphadenopathy is noted PSYCHIATRIC: Normal psychiatric evaluation. Limitations: no limitations Limitations: physical limitation Course Vital Signs 05/22/18 05/22/18 00:15 02:27 Temperature 98.4 F 97.8 F Pulse Rate 60 60 Respiratory 17 16 Rate Blood Pressure 152/64 145/65 O2 Sat by Pulse 93 L 99 Oximetry Medical Decision Making - Medical Decision Making Patient seen and evaluated history obtained from the patient review of medical record chronically ill-appearing Maalox independent, pleural catheter in place, decreased breath sounds on the right, appears very pale and fatigued Labs and imaging were ordered Imaging reveals worsening right sided pneumonia as well as pleural effusion - antibiotics for community-acquired pneumonia were ordered Stool guaiac is positive hemoglobin is 8.5, patient reports he was told was 8.0 this morning, previous when the 11th Protonix ordered Patient was admitted for upper GI bleed, acute anemia, H Pneumonia, CHF exacerbation - Lab Data Result diagrams: 05/22/18 00:45 05/22/18 00:45 Lab Results 05/22/18 05/22/18 05/22/18 Range/Units 00:45 00:45 00:45 WBC 9.1 (3.8-10.6) k/uL RBC 2.55 L (4.30-5.90) m/uL Hgb 8.5 L (13.0-17.5) gm/dL Hct 26.5 L (39.0-53.0) % MCV 103.9 H (80.0-100.0) fL MCH 33.5 (25.0-35.0) pg MCHC 32.3 (31.0-37.0) g/dL RDW 15.0 (11.5-15.5) % Plt Count 285 (150-450) k/uL Neutrophils % 73 % Lymphocytes % 13 % Monocytes % 9 % Eosinophils % 2 % Basophils % 0 % Neutrophils # 6.6 (1.3-7.7) k/uL Lymphocytes # 1.1 (1.0-4.8) k/uL Monocytes # 0.8 (0-1.0) k/uL Eosinophils # 0.1 (0-0.7) k/uL Basophils # 0.0 (0-0.2) k/uL Macrocytosis Slight PT (9.0-12.0) sec INR (<1.2) APTT (22.0-30.0) sec Sodium 132 L (137-145) mmol/L Potassium 4.4 (3.5-5.1) mmol/L Chloride 92 L (98-107) mmol/L Carbon Dioxide 30 (22-30) mmol/L Anion Gap 10 mmol/L BUN 26 H (9-20) mg/dL Creatinine 1.10 (0.66-1.25) mg/dL Est GFR (CKD-EPI)AfAm 72 (>60 ml/min/1.73 sqM) Est GFR (CKD-EPI)NonAf 62 (>60 ml/min/1.73 sqM) Glucose 132 H (74-99) mg/dL Plasma Lactic Acid Hitesh 1.4 (0.7-2.0) mmol/L Calcium 8.6 (8.4-10.2) mg/dL Total Bilirubin 0.6 (0.2-1.3) mg/dL AST 32 (17-59) U/L ALT 20 L (21-72) U/L Alkaline Phosphatase 65 (38-126) U/L Troponin I (0.000-0.034) ng/mL Total Protein 6.0 L (6.3-8.2) g/dL Albumin 3.3 L (3.5-5.0) g/dL 05/22/18 05/22/18 Range/Units 00:45 00:45 WBC (3.8-10.6) k/uL RBC (4.30-5.90) m/uL Hgb (13.0-17.5) gm/dL Hct (39.0-53.0) % MCV (80.0-100.0) fL MCH (25.0-35.0) pg MCHC (31.0-37.0) g/dL RDW (11.5-15.5) % Plt Count (150-450) k/uL Neutrophils % % Lymphocytes % % Monocytes % % Eosinophils % % Basophils % % Neutrophils # (1.3-7.7) k/uL Lymphocytes # (1.0-4.8) k/uL Monocytes # (0-1.0) k/uL Eosinophils # (0-0.7) k/uL Basophils # (0-0.2) k/uL Macrocytosis PT 23.9 H (9.0-12.0) sec INR 2.7 H (<1.2) APTT 30.3 H (22.0-30.0) sec Sodium (137-145) mmol/L Potassium (3.5-5.1) mmol/L Chloride (98-107) mmol/L Carbon Dioxide (22-30) mmol/L Anion Gap mmol/L BUN (9-20) mg/dL Creatinine (0.66-1.25) mg/dL Est GFR (CKD-EPI)AfAm (>60 ml/min/1.73 sqM) Est GFR (CKD-EPI)NonAf (>60 ml/min/1.73 sqM) Glucose (74-99) mg/dL Plasma Lactic Acid Hitesh (0.7-2.0) mmol/L Calcium (8.4-10.2) mg/dL Total Bilirubin (0.2-1.3) mg/dL AST (17-59) U/L ALT (21-72) U/L Alkaline Phosphatase (38-126) U/L Troponin I 0.039 H* (0.000-0.034) ng/mL Total Protein (6.3-8.2) g/dL Albumin (3.5-5.0) g/dL Disposition Clinical Impression: Pleural effusion, Congestive heart failure, Dyspnea, Anemia, UGIB (upper gastrointestinal bleed) Disposition: ADMITTED IP TO THIS HOSP
[2018-05-22] MEDS ORDERED: LEVOFLOXACIN 750MG-D5W PMX 750 MG in DEXTROSE/WATER 1 150ML.BAG IVPB STA (01:43)
[2018-05-22] MEDS ORDERED: VANCOMYCIN IV PER PHARMACY 1 EACH MISC MISCELLANE PRN (01:43)
[2018-05-22] MEDS ORDERED: PNEUMONIA PROTOCOL UTILIZED 1 EACH MISC PO PRN (01:47)
[2018-05-22] MEDS ORDERED: NALOXONE 0.4 MG/ML 1 ML VIAL IV PRN (01:48)
[2018-05-22] MEDS ORDERED: FUROSEMIDE 10 MG/ML 4 ML VIAL IV STA (02:59)
[2018-05-22 03:15] LABS: Appearance,Urine Clear (Clear); Bilirubin,Urine Negative (Negative); Blood,Urine Negative (Negative); Color,Urine Light Yellow; Glucose,Urine (UA) Negative (Negative); Ketones,Urine Negative (Negative); Leukocyte Esterase,Urine Negative (Negative); Nitrite,Urine Negative (Negative); Protein,Urine Negative (Negative); Specific Gravity,Urine 1.009 (1.001-1.035); Urobilinogen,Urine <2.0 mg/dL (<2.0)
[2018-05-22 03:30] VITALS: BMI 26.0
[2018-05-22] MEDS: VANCOMYCIN 1,500 MG in SODIUM CHLORIDE 0.9% 250 ML IVPB SCH ×2 (03:45→19:34)
[2018-05-22] MEDS: PIPERACILLIN-TAZOBACTAM 3.375 GM in DEXTROSE/WATER 1 50ML.BAG IVPB SCH ×4 (06:13→22:12)
[2018-05-22 06:42] LABS: Glucose,Whole Blood 118 mg/dL (75-99)
[2018-05-22] MEDS: MORPHINE SULFATE ER 60 MG TABLET PO SCH ×2 (08:44→20:34)
[2018-05-22] MEDS: LISINOPRIL 2.5 MG TAB PO SCH (08:45)
[2018-05-22] MEDS: CARVEDILOL 12.5 MG TAB PO SCH (08:45)
[2018-05-22] MEDS: PANTOPRAZOLE 40 MG/10 ML VIAL IVP SCH ×2 (08:45→20:34)
[2018-05-22] MEDS: IPRATROPIUM-ALBUTEROL 3 ML NEB INHALATION SCH ×4 (09:30→19:07)
[2018-05-22 11:00] LABS: Glucose,Whole Blood 186 mg/dL (75-99)
[2018-05-22] MEDS ORDERED: PROMETHAZINE 25 MG TAB PO PRN (11:46)
[2018-05-22] MEDS: INSULIN ASPART 100 UNIT/ML 1 ML 10 ML VIAL SQ SCH ×3 (13:05→20:35)
[2018-05-22] MEDS: LORazepam 0.5 MG TAB PO PRN ×2 (13:05→20:44)
[2018-05-22] MEDS: FLUCONAZOLE 100 MG TAB PO SCH (13:06)
--- NOTE | 2018-05-22 13:33 | P.CNPUL ---
History of Present Illness Consult date: 05/22/18 Requesting physician: Venus Yee Reason for consult: abnormal CXR/CT Chief complaint: Weakness, shortness of breath History of present illness: This is a very pleasant 82-year-old gentleman who follows with Dr. Lieberman as his primary care physician. He has a history of coronary artery disease, aortic valve stenosis with previous bypass surgery and valve replacement, chronic atrial fibrillation status post permanent pacemaker implantation maintained on warfarin in the outpatient setting, left lower extremity DVT, diastolic congestive heart failure with preserved LV function of 50-55%, moderate pulmonary hypertension. He does have a history of mediastinal lymphadenopathy and is status post Lozoya needle FNA which was negative for malignancy. The patient also has a history of recurrent pleural effusions dating back to June 2017 and has had subsequent multiple recurrent effusions and thoracentesis. Fluid which was transudative and negative for malignancy. He is now status post right Pleurx catheter insertion on 2017. Patient had been doing well in the outpatient setting. He has visiting nurses drain in the Pleurx catheter every other day or so with reportedly approximate 400 ML's removed. He had recently been told by his primary care physician that he has developed anemia of unclear etiology. He presented here to the emergency room this morning with complaints of weakness, fatigue. Hemoglobin is 8.5. INR 2.7. Stool for occult blood is positive. He is seen today in consultation on the regular medical floor. He is currently sitting up in a chair at the bedside. He is awake and alert in no acute distress. Somewhat pale. He states he is feeling about the same as compared to yesterday still weakness and fatigue. No worsening shortness of breath, cough or congestion. He is maintaining good O2 saturations up to 100% on 3 L/m per nasal cannula. He will have his right pleural effusion drained today per the Pleurx catheter. The x-ray does reveal some evidence of congestive heart failure with the ongoing right pleural effusion. ProBNP level 6440. Review of Systems Constitutional: Reports fatigue, Reports malaise, Reports weakness Eyes: denies blurred vision, denies decreased vision Ears: bilateral: decreased hearing Ears, nose, mouth and throat: Denies headache, Denies sore throat Cardiovascular: Reports decreased exercise tolerance, Reports dyspnea on exertion, Reports irregular heart beat, Reports shortness of breath Respiratory: Reports dyspnea Gastrointestinal: Reports nausea Genitourinary: Reports as per HPI Musculoskeletal: Reports limitation of motion, Reports muscle weakness Integumentary: Denies pruritus, Denies rash Neurological: Denies numbness, Denies weakness Psychiatric: Reports anxiety Endocrine: Denies fatigue, Denies weight change Hematologic/Lymphatic: Reports as per HPI Allergic/Immunologic: Reports as per HPI Past Medical History Past Medical History: Atrial Fibrillation, Coronary Artery Disease (CAD), Cancer , Chest Pain / Angina, Heart Failure, COPD, Deep Vein Thrombosis (DVT), GERD/ Reflux, Hyperlipidemia, Hypertension, Myocardial Infarction ([place]), Pneumonia, Prostate Disorder Additional Past Medical History / Comment(s): Home O2 at 3L/NC lately ATC, recurrent R pleural effusions, thoracic adenopathy, pneumonia with sepsis, bronchitis, bilateral lower leg edema/redness L lower leg, L leg DVT in 2006, chronic L leg pain/ neurological damage, BPH, prostrate cancer with surgery, constipation, recently had 4 teeth extracted, Last Myocardial Infarction Date:: 2005 History of Any Multi-Drug Resistant Organisms: None Reported Past Surgical History: Appendectomy, Cardiac Valve Replacement, Cholecystectomy , Heart Catheterization, Heart Catheterization With Stent, Hernia Repair, Pacemaker, Prostate Surgery Additional Past Surgical History / Comment(s): 2016 aortic valve replacement, bilateral cataracts removal, prostatectomy, penile implant x2, R sided thoracentesises, bilateral inguinal hernia repair, L leg dvt surgically removed , colonoscopies. Past Anesthesia/Blood Transfusion Reactions: Previous Problems w/ Anesthesia Additional Past Anesthesia/Blood Transfusion Reaction / Comment(s): "one time BP dropped too low" Date of Last Stent Placement:: 2005 Type of Cardiac Device: Permanent Pacemaker Device Placement Date:: 2004? Past Psychological History: Anxiety Smoking Status: Former smoker Past Alcohol Use History: None Reported Past Drug Use History: None Reported - Past Family History Brother(s) Family Medical History: Cancer Sister(s) Family Medical History: Cancer Father Family Medical History: Cancer Additional Family Medical History / Comment(s): Father had prostrate cancer. He had CAD/CABG. He at the age of 78yrs during coronary angioplasty. Mother Family Medical History: Myocardial Infarction ([place]) Additional Family Medical History / Comment(s): Mother had a [place] at the age of 35yrs. She had CABG. She lived to be 93 yrs old. Medications and Allergies Home Medications Medication Instructions Recorded Confirmed Type Carvedilol 25 mg PO DAILY 06/19/15 05/22/18 History Ferrous Sulfate [Iron (65 MG 325 mg PO DAILY 06/19/15 05/22/18 History Elemental)] oxyCODONE HCL 15 mg PO BID PRN 06/19/15 05/22/18 History LORazepam [Ativan] 0.5 mg PO QID PRN 07/28/16 05/22/18 History Ubidecarenone [Co Q-10] 200 mg PO DAILY 07/28/16 05/22/18 History Lovastatin [Mevacor] 20 mg PO HS 11/20/17 05/22/18 History Warfarin [Coumadin] 5 mg PO HS 11/20/17 05/22/18 History traZODone HCL 100 mg PO HS 11/20/17 05/22/18 History Furosemide [Lasix] 40 mg PO BID #60 tablet 11/21/17 05/22/18 Rx Polyethylene Glycol 3350 [Miralax] 17 gm PO DAILY powd.pack 02/07/18 05/22/18 Rx Lisinopril [Zestril] 2.5 mg PO DAILY 03/10/18 05/22/18 History Promethazine HCl 12.5 mg PO BID PRN 03/10/18 05/22/18 History Morphine Sulfate [Ms Contin] 60 mg PO Q12HR 04/01/18 05/22/18 History Multivitamins, Thera [Multivitamin 1 tab PO DAILY 04/01/18 05/22/18 History (formulary)] Pantoprazole [Protonix] 40 mg PO DAILY 04/01/18 05/22/18 History Sucralfate [Carafate] 1 gm PO BID 04/01/18 05/22/18 History Warfarin Sodium 2 mg PO HS 04/01/18 05/22/18 History Docusate [Colace] 100 mg PO BID cap 04/05/18 05/22/18 Rx Budesonide-Formot 160-4.5 Mcg 2 puff INHALATION RT-BID 04/10/18 05/22/18 History [Symbicort 160-4.5 Mcg Inhaler] Ipratropium-Albuterol Nebulize 3 ml INHALATION RT-QID 04/10/18 05/22/18 History [Duoneb 0.5 mg-3 mg/3 ml Soln] Allergies Allergy/AdvReac Type Severity Reaction Status Date / Time No Known Allergies Allergy Verified 05/22/18 11:21 Physical Exam Vitals: Vital Signs Temp Pulse Pulse Resp BP BP Pulse Ox 05/22/18 12:36 97.9 F 56 L 16 154/64 100 05/22/18 10:58 92 05/22/18 10:46 84 05/22/18 03:17 96.9 F L 83 18 172/74 100 05/22/18 02:27 97.8 F 60 16 145/65 99 05/22/18 00:15 98.4 F 60 17 152/64 93 L Intake and Output 05/21/18 05/22/18 05/22/18 22:59 06:59 14:59 Intake Total 250 Output Total 850 Balance -600 Intake: Intake, IV Titration 250 Amount Vancomycin 1,500 mg In 250 Sodium Chloride 0.9% 250 ml @ 125 mls/hr IVPB Q16H [facility] Rx#:[id number] Output: Urine 850 Other: Voiding Method Toilet Weight 79.923 kg - Constitutional General appearance: average body habitus, no acute distress - EENT Eyes: EOMI, PERRLA ENT: hard of hearing Ears: bilateral: normal - Neck Neck: normal ROM Carotids: bilateral: upstroke normal Thyroid: bilateral: normal size - Respiratory Respiratory: right: diminished - Cardiovascular Rhythm: irregularly irregular Heart sounds: normal: S1, S2 - Gastrointestinal General gastrointestinal: normal bowel sounds - Genitourinary History of prostate cancer. - Integumentary Integumentary: normal turgor - Neurologic Neurologic: CNII-XII intact - Musculoskeletal Musculoskeletal: generalized weakness - Psychiatric Psychiatric: A&O x's 3, appropriate affect, intact judgment & insight Results - Laboratory Findings CBC and BMP: 05/22/18 00:45 05/22/18 00:45 PT/INR, D-dimer PT 23.9 sec (9.0-12.0) H 05/22/18 00:45 INR 2.7 (<1.2) H 05/22/18 00:45 Abnormal lab findings: Abnormal Labs 05/22/18 05/22/18 05/22/18 00:45 00:45 00:45 RBC 2.55 L Hgb 8.5 L Hct 26.5 L MCV 103.9 H PT 23.9 H INR 2.7 H APTT 30.3 H Sodium 132 L Chloride 92 L BUN 26 H Glucose 132 H POC Glucose (mg/dL) ALT 20 L Troponin I Total Protein 6.0 L Albumin 3.3 L 05/22/18 05/22/18 05/22/18 00:45 06:40 10:54 RBC Hgb Hct MCV PT INR APTT Sodium Chloride BUN Glucose POC Glucose (mg/dL) 118 H 186 H ALT Troponin I 0.039 H* Total Protein Albumin - Diagnostic Findings Chest x-ray: image reviewed Assessment and Plan Assessment: Impression: #1 Anemia with weakness of unclear etiology. #2 Acute exacerbation of diastolic congestive heart failure. [place] left ventricular systolic function with ejection fraction 50-55%. #3 Recurrent right-sided pleural effusions secondary to above, status post Pleurx catheter placement in March 2018. #4 History of pericarinal lymph node status post weighing FNA negative for malignancy. #5 Chronic obstructive pulmonary disease, currently inactive and stable. FEV1 value 73% of predicted. #6 Chronic atrial fibrillation, anticoagulated with warfarin. #7 Cardiac arrhythmia status post permanent pacemaker implantation. #8 Remote history of DVT in 2006. #9 Hypertension. #10 Hyperlipidemia. #11 Coronary artery disease with previous coronary artery bypass grafting. #12 Aortic valve stenosis status post aortic valve replacement utilizing a right prosthetic aortic valve. #13 History of prostate cancer. #14 Chronic pain syndrome. #15 Anxiety/depression. Plan: The patient was seen and evaluated by Dr. Smith. Chest x-ray and labs were reviewed. We'll go ahead and set up for a Pleurx catheter drainage set to be at the patient's bedside for every other day draining. He is fairly stable from the pulmonary standpoint. He needs GI workup regarding the anemia. We'll continue with his current medications. We will increase his activity as tolerated. We'll continue to follow. Time with Patient: Greater than 30
[2018-05-22] MEDS: methylPREDNISolone SOD SUCCI 125 MG/2 ML VIAL IV SCH ×3 (13:41→23:49)
[2018-05-22] MEDS: FUROSEMIDE 10 MG/ML 4 ML VIAL IV SCH ×3 (13:41→23:50)
[2018-05-22] MEDS: SUCRALFATE 1 GM TAB PO SCH ×2 (13:41→17:47)
[2018-05-22] MEDS: CLOTRIMAZOLE 1% CREAM 15 GM TUBE TOPICAL SCH ×2 (13:42→20:36)
--- NOTE | 2018-05-22 14:34 | CONS ---
CONSULTATION CHIEF COMPLAINT: Shortness of breath. Felton is an 82-year-old gentleman with history of coronary artery disease, status post CABG, aortic stenosis status post aortic valve replacement, paroxysmal atrial fibrillation, recurrent pleural effusion. He has sinus syndrome, status post permanent pacemaker, who presents to hospital because he was short of breath at home and when he came in he was found to be anemic with hemoglobin around 8. He denies chest pain. Does not have leg edema. He has pleural effusions and currently has a drain in the right pleural space. On this admission, his BNP is elevated. He is anemic and is currently being treated with intravenous diuretics. PAST MEDICAL HISTORY: Significant for CAD, status post CABG, status post aortic valve replacement, paroxysmal atrial fibrillation, hypertension. MEDICATIONS: At home include Coumadin, MiraLAX, Protonix, MS Contin, Mevacor, Zestril, Ativan, Lasix, Colace, carvedilol, and Senokot. ALLERGIES: There are no known drug allergies. FAMILY HISTORY: Negative for premature coronary artery disease. SOCIAL HISTORY: Negative for current smoking, EtOH abuse, or drug abuse. REVIEW OF SYSTEMS: HEENT is unremarkable. CARDIAC: As described above. RESPIRATORY: As described above. GI: Negative. GENITOURINARY: Negative. ALLERGY/IMMUNOLOGY: : Negative. SKIN: Negative. MUSCULOSKELETAL: Significant for arthritis. PSYCHOSOCIAL: Negative. ENDOCRINE: Negative. DERM: Negative. CONSTITUTIONAL: Negative. ONCOLOGICAL: Negative. PHYSICAL EXAM: Patient is comfortable at rest. Heart rate is 56. Blood pressure is 150/60, respiratory rate is 18, O2 sat is 100% on 3 L. There is no jugular venous distention. Chest exam reveals diminished air entry at the right base. Heart exam reveals first and second heart sounds and a systolic murmur at the apex. Abdomen is soft. Exam of extremities reveals trace edema bilaterally. LABS: Show a hemoglobin of 8.5. INR is 2.7, potassium is 4.4, creatinine is 1.1. BNP is elevated at 6,440. ASSESSMENT: 1. Acute exacerbation of chronic diastolic heart failure. 2. Recurrent pleural effusion. 3. Paroxysmal atrial fibrillation. 4. Sick sinus syndrome, status post permanent pacemaker. PLAN: I will continue current medical therapy including IV Lasix, beta blockers, EUGENE inhibitors and continue the drainage of the pleural effusion. MMODL / IJN: [id number] /
[2018-05-22 16:58] LABS: Glucose,Whole Blood 166 mg/dL (75-99)
--- NOTE | 2018-05-22 17:52 | HP ---
HISTORY AND PHYSICAL CHIEF COMPLAINT: Shortness of breath. HISTORY OF PRESENT ILLNESS: This is an 82-year-old gentleman with a past medical history of multiple medical problems including COPD, CHF with chronic diastolic dysfunction, history of atrial fibrillation, CAD, history of COPD, DVT, hypertension, hyperlipidemia, followed by Dr. Simon in the outpatient setting. The patient has recent shortness of breath over the past several months. The patient had increased shortness of breath and patient repeat paracentesis of the fluid on the right side. The most recently patient had a previous drain done by Cardiothoracic Surgery. Patient also had a subcarinal lymph node, the biopsy did not show any acute abnormality. Currently, the patient is complaining of shortness of breath. The patient admitted for further evaluation and treatment. There is no history of fever or rigors. No history of headache, loss of consciousness or seizures. Cardiology, Pulmonology evaluation in progress. PAST MEDICAL HISTORY: CAD, history of right pleural effusion with drainage, history of CHF, COPD, DVT, GERD, hypertension, hyperlipidemia, myocardial infarction. MEDICATIONS, HOME MEDICATIONS ARE:: 1. Trazodone 100 mg q.h.s. 2. Oxycodone 50 mg b.i.d. p.r.n. 3. Coumadin 5 mg q.h.s. and 2 mg q.h.s. 4. Coenzyme QA 200 mg p.o. daily. 5. Carafate 1 g p.o. b.i.d. 6. Promethazine 12.5 mg b.i.d. p.r.n. 7. MiraLAX 17 g daily. 8. Protonix 40 mg p.o. daily. 9. Multivitamin 1 p.o. daily. 10.MS Contin 60 mg p.o. b.i.d. 11.Mevacor 20 mg q.h.s. 12.Zestril 2.5 mg p.o. daily. 13.Ativan 0.5 mg q.i.d. p.r.n. 14.DuoNeb q.i.d. 15.Lasix 40 mg p.o. b.i.d. 16.Iron 320 mg p.o. daily. 17.Colace 100 mg p.o. b.i.d. 18.Coreg 25 mg p.o. daily. 19.Symbicort 160/4.5 two puffs b.i.d. ALLERGIES: None. FAMILY HISTORY: History of cancer, prostate cancer in the family. SOCIAL HISTORY: History of smoking. No current smoking, alcohol intake. REVIEW OF SYSTEMS: ENT: Diminished hearing and vision. CARDIOVASCULAR: As mentioned earlier. GI: No nausea. : No dysuria. NERVOUS SYSTEM: No numbness or weakness. ALLERGY/IMMUNOLOGY: As mentioned earlier. HEMATOLOGY: No history of anemia. ENDOCRINE: No history of any diabetes or hypothyroidism. CONSTITUTIONAL: As mentioned earlier. DERMATOLOGY: Negative. RHEUMATOLOGY: Negative. PSYCHIATRY: As mentioned earlier. PHYSICAL EXAMINATION: Alert and oriented x3, pulse 56, blood pressure 150/60, respirations 16, temperature 97.9, pulse ox 100% on 3 L. HEENT: Conjunctivae normal. Oral mucosa moist. Neck is no jugular venous distention. No carotid bruit, no lymph node enlargement. RESPIRATIONS: Mildly labored. CARDIOVASCULAR: S1, S2, muffled, no S3, no S4. RESPIRATORY: Breath sounds diminished at the bases, bilateral scattered rhonchi and crackles bilaterally. ABDOMEN: Soft, nontender. No mass palpable. LEGS: Minimal bilateral leg edema. Nervous System: Higher functions as mentioned earlier. Moves all 4 limbs. No focal motor deficits. LYMPHATICS: No lymph node enlargement in the neck or axillae. SKIN: No ulcer, rash or bleeding. LABS: At this time shows WBC 9.2, hemoglobin is 8.5, INR 2.2, sodium 132, glucose 132, troponin 0.039. ASSESSMENT: 1. Congestive heart failure, shortness of breath multifactorial, chronic obstructive pulmonary disease acute exacerbation with acute purulent tracheobronchitis as well congestive heart failure acute exacerbation, acute on chronic diastolic dysfunction, ejection fraction 50% to 55%. 2. Status post multiple thoracocentesis and currently PleurX drainage of the right pleural effusion. 3. Troponin 0.039, indeterminate. 4. Coumadin monitoring. 5. History of atrial fibrillation. 6. Coronary artery disease. 7. Chest pain. 8. History of congestive heart failure. 9. Chronic obstructive pulmonary disease. 10.History of deep venous thrombosis. 11.Gastroesophageal reflux disease. 12.Hypertension. 13.Hyperlipidemia. 14.History of myocardial infarction. 15.History of chronic hypoxic respiratory failure, on home O2 three L. 16.History of thoracic and hilar lymphadenopathy, status of biopsy, benign apparently. 17.Bilateral feet pain and dermatitis. 18.Constipation. 19.History of aortic valve replacement. 20.History of coronary artery disease, stent. 21.History of anxiety. RECOMMENDATION: In this 82-year-old gentleman who presented with multiple complex medical issues, will monitor the patient closely, continue with the current management and symptomatic treatment. Otherwise, at this time, I recommend continue with the combination of diuretics as well as bronchodilators, broad-spectrum IV antibiotics. I would also recommend Solu-Medrol to monitor pressures closely. Otherwise, patient will be started on IV Zosyn and vanco. Cardiology, Pulmonary consultation has been ordered. Overall prognosis extremely guarded because of multiple complex medical issues. Further recommendations to follow. A copy of this dictation will be forwarded to Dr. Adolfo Simon who is the primary physician. YESICA / DELFINO: [id number] /
[2018-05-22] MEDS: FORMOTEROL FUMARATE 20 MCG/2 ML NEBU INHALATION SCH (19:07)
[2018-05-22] MEDS: BUDESONIDE 1 MG/2 ML NEBU INHALATION SCH (19:07)
[2018-05-22 20:24] LABS: Glucose,Whole Blood 234 mg/dL (75-99)
[2018-05-22] MEDS: DOCUSATE 100 MG CAP PO SCH (20:34)
[2018-05-22] MEDS: traZODone HCL 100 MG TAB PO SCH (20:35)
[2018-05-22] MEDS: ATORVASTATIN 10 MG TAB PO SCH (20:35)
[2018-05-23] MEDS: HYDROcodone/APAP 5-325MG 1 EACH TAB PO PRN (02:30)
[2018-05-23] MEDS: PIPERACILLIN-TAZOBACTAM 3.375 GM in DEXTROSE/WATER 1 50ML.BAG IVPB SCH ×3 (05:37→23:09)
[2018-05-23] MEDS: methylPREDNISolone SOD SUCCI 125 MG/2 ML VIAL IV SCH ×2 (05:37→11:32)
[2018-05-23 06:53] LABS: Glucose,Whole Blood 161 mg/dL (75-99)
[2018-05-23] MEDS: IPRATROPIUM-ALBUTEROL 3 ML NEB INHALATION SCH ×4 (07:07→19:18)
[2018-05-23] MEDS: FORMOTEROL FUMARATE 20 MCG/2 ML NEBU INHALATION SCH (07:07)
[2018-05-23] MEDS: BUDESONIDE 1 MG/2 ML NEBU INHALATION SCH (07:07)
[2018-05-23 07:26] LABS: INR 1.7 (<1.2); Prothrombin Time 15.4 sec (9.0-12.0)
[2018-05-23 07:29] LABS: Calcium 8.7 mg/dL (8.4-10.2); Potassium 3.8 mmol/L (3.5-5.1)
[2018-05-23] MEDS: CO Q10 200 MG PO SCH (07:34)
[2018-05-23 07:46] LABS: Basophils % (A) 0 %; Eosinophils % (A) 0 %; HCT 30.9 % (39.0-53.0); HGB 9.8 gm/dL (13.0-17.5); Hypochromasia Moderate; Lymphocytes # (A) 0.6 k/uL (1.0-4.8); Lymphocytes % (A) 6 %; MCH 33.4 pg (25.0-35.0); MCHC 31.6 g/dL (31.0-37.0); MCV 105.8 fL (80.0-100.0); Macrocytosis Moderate; Mean Platelet Volume 6.8; Monocytes # (A) 0.4 k/uL (0-1.0); Monocytes % (A) 3 %; Neutrophils # (A) 9.4 k/uL (1.3-7.7); Neutrophils % (A) 89 %; Platelet Count 294 k/uL (150-450); RBC 2.92 m/uL (4.30-5.90); RDW 14.8 % (11.5-15.5); WBC 10.5 k/uL (3.8-10.6)
[2018-05-23] MEDS: INSULIN ASPART 100 UNIT/ML 1 ML 10 ML VIAL SQ SCH ×4 (07:46→21:25)
[2018-05-23] MEDS: CARVEDILOL 12.5 MG TAB PO SCH (07:46)
[2018-05-23] MEDS: DOCUSATE 100 MG CAP PO SCH ×2 (07:46→21:24)
[2018-05-23] MEDS: FUROSEMIDE 10 MG/ML 4 ML VIAL IV SCH ×3 (07:46→23:58)
[2018-05-23] MEDS: FLUCONAZOLE 100 MG TAB PO SCH (07:46)
[2018-05-23] MEDS: SUCRALFATE 1 GM TAB PO SCH ×2 (07:46→17:11)
[2018-05-23] MEDS: MULTIVITAMINS, THERA 1 EACH TAB PO SCH (07:47)
[2018-05-23] MEDS: MORPHINE SULFATE ER 60 MG TABLET PO SCH ×2 (07:47→21:24)
[2018-05-23] MEDS: PANTOPRAZOLE 40 MG/10 ML VIAL IVP SCH (07:47)
[2018-05-23] MEDS: POLYETHYLENE GLYCOL 3350 17 GM POWD.PACK PO SCH (07:47)
[2018-05-23] MEDS: LISINOPRIL 2.5 MG TAB PO SCH (07:47)
[2018-05-23] MEDS: CLOTRIMAZOLE 1% CREAM 15 GM TUBE TOPICAL SCH ×2 (07:48→21:25)
--- NOTE | 2018-05-23 10:34 | ECHOF ---
Referral Reason:hx of heart failure, SOB MEASUREMENTS -------- HEIGHT: 175.3 cm WEIGHT: 79.8 kg BP: 154/64 RVIDd: 3.8 cm (< 3.3) IVSd: 1.7 cm (0.6 - 1.1) LVIDd: 4.9 cm (3.9 - 5.3) LVPWd: 1.6 cm (0.6 - 1.1) IVSs: 1.9 cm LVIDs: 3.4 cm LVPWs: 1.8 cm LA Diam: 4.7 cm (2.7 - 3.8) LAESV Index (A-L): 45.99 ml/m Ao Diam: 3.5 cm (2.0 - 3.7) AV Cusp: 1.9 cm (1.5 - 2.6) MV EXCURSION: 17.180 mm (> 18.000) MV EF SLOPE: 66 mm/s (70 - 150) EPSS: 1.2 cm MV E Luciano: 1.58 m/s MV DecT: 118 ms MV A Luciano: 1.42 m/s MV E/A Ratio: 1.11 AV maxP.63 mmHg AV meanP.97 mmHg AR PHT: 615 ms RAP: 15.00 mmHg RVSP: 47.35 mmHg FINDINGS -------- Paced rhythm. This was a technically good study. The left ventricular size is normal. There is moderate concentric left ventricular hypertrophy. O verall left ventricular systolic function is mildly impaired with, an EF between 45 - 50 %. The right ventricle is mild to moderately enlarged. LA is severely dilated >40 ml/m2 The right atrium is normal in size. There is mild aortic valve sclerosis. There is mild aortic regurgitation. There is mild aortic st enosis present. Peak/mean gradient across the Aortic Valve is 13.63mmHg / 5.97mmHg. The mitral valve leaflets are mildly thickened. Mild mitral annular calcification present. Mild-t o-moderate mitral regurgitation is present. Mild tricuspid regurgitation present. There is moderate pulmonary hypertension. The right ventric ular systolic pressure, as measured by Doppler, is 47.35mmHg. There is no pulmonic regurgitation present. The aortic root size is normal. Normal inferior vena cava with normal inspiratory collapse consistent with estimated right atrial pre ssure of 5 mmHg. There is no pericardial effusion. CONCLUSIONS -------- 1. Paced rhythm. 2. This was a technically good study. 3. The left ventricular size is normal. 4. There is moderate concentric left ventricular hypertrophy. 5. The right ventricle is mild to moderately enlarged. 6. LA is severely dilated >40 ml/m2 7. The right atrium is normal in size. 8. There is mild aortic valve sclerosis. 9. There is mild aortic regurgitation. 10. There is mild aortic stenosis present. 11. Peak/mean gradient across the Aortic Valve is 13.63mmHg / 5.97mmHg. 12. The mitral valve leaflets are mildly thickened. 13. Mild mitral annular calcification present. 14. Tnso-pi-gtcjsxey mitral regurgitation is present. 15. Mild tricuspid regurgitation present. 16. There is moderate pulmonary hypertension. 17. The right ventricular systolic pressure, as measured by Doppler, is 47.35mmHg. 18. There is no pulmonic regurgitation present. 19. The aortic root size is normal. 20. Normal inferior vena cava with normal inspiratory collapse consistent with estimated right atrial pressure of 5 mmHg. 21. There is no pericardial effusion. MASTICATOR: Supriya Palomares RDCS
[2018-05-23 11:09] LABS: Glucose,Whole Blood 259 mg/dL (75-99)
[2018-05-23] MEDS: POTASSIUM CHLORIDE ER 20 MEQ TAB.ER PO SCH (11:33)
[2018-05-23] MEDS: VANCOMYCIN 1,500 MG in SODIUM CHLORIDE 0.9% 250 ML IVPB SCH (11:34)
--- NOTE | 2018-05-23 12:16 | P.PN ---
Subjective Progress Note Date: 05/23/18 Principal diagnosis: Weakness Progress note dated 05/23/2018 This is an 82-year-old male who was evaluated recently in the emergency room for weakness and anemia. He apparently had some outpatient testing of his blood and was found to be anemic. The patient also has a history of a diastolic heart failure with preserved left ventricular ejection fraction. He also has a chronic right-sided pleural effusion with multiple thoracentesis and then subsequent to that, Pleurx catheter placement. The Pleurx catheter was drained about every 2 days. In addition, the patient has some enlarged lymph nodes in the chest with previous TBNA, which was negative for malignancy. In addition, he has some mild to moderate COPD. Again he did not comment on this admission for respiratory issues but rather weakness and anemia. We recommended a GI evaluation because of his anemia. He does admit to some black stools. Nothing bloody stools. In addition to all of this, the patient has multiple other medical problems including previous aortic valve replacement for aortic stenosis prostate cancer chronic pain syndrome anxiety depression hyperlipidemia hypertension DVT and previous pacemaker insertion. Today, he is resting rather comfortably. Objective - Vital Signs Vital signs: Vital Signs Temp 96.8 F L 05/23/18 04:59 Pulse 78 05/23/18 11:07 Resp 16 05/23/18 04:59 BP 106/52 05/23/18 04:59 Pulse Ox 95 05/23/18 04:59 Intake & Output 05/22/18 05/23/18 05/23/18 18:59 06:59 18:59 Intake Total 740 Output Total 1250 100 Balance -1250 640 Weight 77.5 kg Intake: Intake, IV Titration 350 Amount Piperacillin-Tazobactam 3 100 .375 gm In Dextrose/Water 1 50ml.bag @ 12.5 mls/hr IVPB Q8H [facility] Rx#: [id number] Vancomycin 1,500 mg In 250 Sodium Chloride 0.9% 250 ml @ 125 mls/hr IVPB Q16H [facility] Rx#:[id number] Oral 390 Output: Drainage 250 Right Lower Abdomen 250 Urine 1000 100 Other: Voiding Method Toilet Toilet Toilet # Voids 1 1 - Exam No acute distress, oriented 3. Not requiring any oxygen therapy at this time. HEENT examination is grossly unremarkable. Mucous membranes are moist. No oral lesions. Neck supple. Full range of motion. No adenopathy thyromegaly or neck vein distention. Cardiovascular examination reveals a irregular rhythm and rate. S1-S2 normal. Soft systolic murmur noted. Lungs reveal diminished breath sounds particularly at the right base. There is a few scattered mild crackles. No rhonchi. No wheezes. Breath sounds equal bilaterally elsewhere. Abdomen soft bowel sounds are heard. No masses or tenderness. Extremities are intact. No cyanosis clubbing or edema. Skin is without rash or lesion. Neurologic examination is brief but nonfocal. - Labs CBC & Chem 7: 05/23/18 06:29 05/23/18 06:29 Labs: Abnormal Lab Results - Last 24 Hours (Table) 05/22/18 05/22/18 05/23/18 Range/Units 16:56 20:23 06:29 RBC 2.92 L (4.30-5.90) m/uL Hgb 9.8 L (13.0-17.5) gm/dL Hct 30.9 L (39.0-53.0) % MCV 105.8 H (80.0-100.0) fL Neutrophils # 9.4 H (1.3-7.7) k/uL Lymphocytes # 0.6 L (1.0-4.8) k/uL PT (9.0-12.0) sec INR (<1.2) Sodium (137-145) mmol/L Chloride (98-107) mmol/L BUN (9-20) mg/dL Glucose (74-99) mg/dL POC Glucose (mg/dL) 166 H 234 H (75-99) mg/dL 05/23/18 05/23/18 05/23/18 Range/Units 06:29 06:38 06:51 RBC (4.30-5.90) m/uL Hgb (13.0-17.5) gm/dL Hct (39.0-53.0) % MCV (80.0-100.0) fL Neutrophils # (1.3-7.7) k/uL Lymphocytes # (1.0-4.8) k/uL PT 15.4 H (9.0-12.0) sec INR 1.7 H (<1.2) Sodium 136 L (137-145) mmol/L Chloride 95 L (98-107) mmol/L BUN 28 H (9-20) mg/dL Glucose 134 H (74-99) mg/dL POC Glucose (mg/dL) 161 H (75-99) mg/dL 05/23/18 Range/Units 11:07 RBC (4.30-5.90) m/uL Hgb (13.0-17.5) gm/dL Hct (39.0-53.0) % MCV (80.0-100.0) fL Neutrophils # (1.3-7.7) k/uL Lymphocytes # (1.0-4.8) k/uL PT (9.0-12.0) sec INR (<1.2) Sodium (137-145) mmol/L Chloride (98-107) mmol/L BUN (9-20) mg/dL Glucose (74-99) mg/dL POC Glucose (mg/dL) 259 H (75-99) mg/dL Microbiology - Last 24 Hours (Table) 05/22/18 02:56 Urine Culture - Final Urine,Voided 05/22/18 01:56 Blood Culture - Preliminary Blood No Growth after 24 hours Assessment and Plan Assessment: Assessment Anemia, likely related to a GI source of bleeding Acute exacerbation of chronic diastolic heart failure, with a preserved left ventricular ejection fraction. Chronic and recurrent right-sided pleural effusion, with multiple previous thoracentesis, and subsequent Pleurx catheter placement History of thoracic adenopathy, with a negative TBNA Mild/moderate COPD with an FEV1 at 73% of predicted History of chronic atrial fibrillation, on blood thinners Status post pacemaker insertion Remote history of DVT History of hypertension History of hyperlipidemia CAD with previous bypass grafting Status post aortic valve replacement for aortic stenosis History of prostate cancer Chronic pain syndrome History of anxiety/depression Plan: Plan dated 05/23/2018 White count 10.5 hemoglobin 9.8 hematocrit 30.9 and platelet count is normal. PT was 15.4 with an INR of 1.7. Sodium 136 potassium 3.8 chloride is 95 CO2 27. BUN/creatinine were 28 and 1.10 BNP from May 22 was elevated at 6440. Microbiologic sampling is thus far negative. I will DC the Pulmicort and the Perforomist and placed the patient back on Symbicort. The patient does not need side Medrol at this point. The patient is on good antibiotics though I doubt significant healthcare acquired pneumonia. I suspect most of the problem relates to his diastolic heart failure. Time with Patient: Less than 30
--- NOTE | 2018-05-23 12:34 | PN ---
PROGRESS NOTE DATE OF SERVICE: 05/23/2018. HISTORY: Rylee is an 82-year-old gentleman with history of coronary artery disease and aortic stenosis status post aortic valve replacement, anemia, recurrent right-sided pleural effusions, was admitted to hospital yesterday with shortness of breath and anemia and was in congestive heart failure. We treated him with intravenous diuretics with some improvement in his symptoms. There was 250 mL of drainage yesterday. An echocardiogram shows mild LV systolic dysfunction with a normally functioning aortic valve with mild to moderate mitral regurgitation. EXAM: On exam, he is comfortable at rest. Heart rate is 80 beats per minute. Blood pressure is 106/50, respirations 18, O2 sat is 95% on 3 L. There is no jugular venous distention. Chest exam reveals diminished air entry at the right base. Heart exam reveals first and second heart sounds. Systolic murmur at the apex. Abdomen is soft. Exam of extremities reveals bilateral pitting edema. He dropped about 2-1/2 kg since yesterday. He is currently on Lasix 40 mg IV every 8, which I am going to continue and starting him on potassium 20 mEq daily. He will continue the Coumadin to maintain an INR of 2 to 2.5. He does not have any active GI bleed. Hemoglobin is up to 9.8. ASSESSMENT: 1. Acute exacerbation of chronic diastolic heart failure. 2. Status post AVR. 3. Coronary artery disease. 4. Recurrent right pleural effusion. PLAN: Will treat the patient with IV diuretics. Continue the Coreg, Lipitor, and Zestril. MMODL / IJN: [id number] /
--- NOTE | 2018-05-23 15:59 | PN ---
PROGRESS NOTE DATE OF SERVICE: 05/23/2018 82-year-old gentleman who was admitted with shortness of breath possibly multifactorial CHF, COPD, pleural effusion being closely monitored. Patient had PleurX drainage of the right pleural fluid. There is no evidence of malignancy so far. The patient also had anemia. Hemoglobin is 9.8 today. No more bleeding is noted. GI consultation is in progress at this time. The patient also has significant dry skin and possible fungal infection of the feet also. PAST MEDICAL HISTORY: Reviewed. REVIEW OF SYSTEMS: CARDIOVASCULAR: No angina. RESPIRATORY: As mentioned earlier. GI: As mentioned earlier. : No dysuria. NERVOUS SYSTEM: As mentioned earlier. CURRENT MEDICATIONS: Reviewed and include: 1. [place] 5 mg q.6h p.r.n. 2. DuoNeb q.i.d. and p.r.n. 3. Lipitor 10 mg q.h.s. 4. Symbicort 160/4.5 two puffs b.i.d. 5. Coreg 25 mg p.o. daily. 6. Lotrimin 1 application b.i.d. 7. Colace 100 mg p.o. b.i.d. 8. Diflucan 100 mg p.o. 9. Lasix 40 mg IV q.8h. 10.NovoLog scale. 11.Zestril 2.5 mg. 12.Ativan. 13.MS Contin 60 mg p.o. b.i.d. 14.Multivitamins. 15.Narcan. 16.Coenzyme q.200 mg p.o. daily. 17.Oxy-IR 15 mg p.o. b.i.d. 18.Protonix 40 mg daily. 19.Zosyn 3.375 IV q.8h. 20.MiraLAX. 21.K-Dur 10 mEq p.o. daily. 22.Phenergan. 23.Carafate 1 g a.c. b.i.d. 24.Vancomycin. 25.Coumadin. PHYSICAL EXAM: Patient is alert, oriented x3. Pulse is 60, blood pressure 136/63, respiration 18, temperature 97.2, pulse ox 98% on 3 L. HEENT: Conjunctivae normal. Oral mucosa moist. Neck is no jugular venous distention. No lymph node enlargement. CARDIOVASCULAR: S1, S2. Ejection systolic murmur. RESPIRATORY: Breath sounds diminished in the bases. Bilateral scattered rhonchi and crackles. ABDOMEN: Soft, nontender. LEGS: Bilateral leg edema. NERVOUS SYSTEM: Diffusely weak. LABS: WBC 10.2, hemoglobin 9.8, INR 1.7. ASSESSMENT: 1. Shortness of breath, multifactorial, congestive heart failure acute exacerbation with acute on chronic diastolic dysfunction, ejection fraction 50-55% as well as chronic obstructive pulmonary disease acute exacerbation with acute purulent tracheobronchitis. 2. Status post multiple thoracocentesis and PleurX drainage of the right pleural effusion. 3. Troponin 0.039, indeterminate. 4. Coumadin monitoring. 5. History atrial fibrillation. 6. History of coronary artery disease. 7. History of chest pain. 8. History of congestive heart failure. 9. History of chronic obstructive pulmonary disease. 10.History of deep vein thrombosis. 11.Gastroesophageal reflux disease. 12.Hypertension. 13.Hyperlipidemia. 14.History of myocardial infarction. 15.History of chronic hypoxic respiratory failure on home O2 3 L nasal cannula. 16.History of thoracic and hilar lymphadenopathy status of biopsy with benign reports. 17.Bilateral feet pain and dermatitis. 18.Constipation. 19.History of aortic valve replacement. 20.History of coronary artery disease, stent. 21.History of anxiety. RECOMMENDATIONS AND DISCUSSION: I recommend to continue current management, continue with monitoring and symptomatic treatment. Otherwise at this time we will continue with bronchodilators and continue the antibiotics. We will continue to monitor. Monitor blood sugars and prognosis guarded because of multiple complex medical issues and further recommendations to follow. MMODL / IJN: [id number] /
[2018-05-23 17:01] LABS: Glucose,Whole Blood 170 mg/dL (75-99)
[2018-05-23] MEDS: LORazepam 0.5 MG TAB PO PRN ×2 (17:11→21:24)
[2018-05-23] MEDS ORDERED: WARFARIN 5 MG TAB PO ONE (18:00)
[2018-05-23] MEDS: PANTOPRAZOLE 40 MG TABLET PO SCH (18:17)
[2018-05-23] MEDS: SYMBICORT 160-4.5 MCG INHALER INHALATION SCH (19:16)
[2018-05-23 20:07] LABS: Glucose,Whole Blood 175 mg/dL (75-99)
[2018-05-23] MEDS: traZODone HCL 100 MG TAB PO SCH (21:24)
[2018-05-23] MEDS: ATORVASTATIN 10 MG TAB PO SCH (21:24)
[2018-05-24] MEDS: VANCOMYCIN 1,500 MG in SODIUM CHLORIDE 0.9% 250 ML IVPB SCH (04:31)
[2018-05-24] MEDS: PIPERACILLIN-TAZOBACTAM 3.375 GM in DEXTROSE/WATER 1 50ML.BAG IVPB SCH ×3 (06:01→13:20)
[2018-05-24 06:53] LABS: Glucose,Whole Blood 135 mg/dL (75-99)
[2018-05-24] MEDS: SYMBICORT 160-4.5 MCG INHALER INHALATION SCH ×2 (07:03→19:15)
[2018-05-24] MEDS: IPRATROPIUM-ALBUTEROL 3 ML NEB INHALATION SCH ×4 (07:03→19:13)
[2018-05-24] MEDS: CO Q10 200 MG PO SCH (07:46)
[2018-05-24] MEDS: POLYETHYLENE GLYCOL 3350 17 GM POWD.PACK PO SCH (07:46)
[2018-05-24] MEDS: DOCUSATE 100 MG CAP PO SCH ×2 (07:47→20:10)
[2018-05-24] MEDS: MORPHINE SULFATE ER 60 MG TABLET PO SCH ×2 (07:47→20:10)
[2018-05-24] MEDS: LISINOPRIL 2.5 MG TAB PO SCH (07:47)
[2018-05-24] MEDS: PANTOPRAZOLE 40 MG TABLET PO SCH ×2 (07:47→17:30)
[2018-05-24] MEDS: SUCRALFATE 1 GM TAB PO SCH ×2 (07:47→17:30)
[2018-05-24] MEDS: MULTIVITAMINS, THERA 1 EACH TAB PO SCH (07:47)
[2018-05-24] MEDS: INSULIN ASPART 100 UNIT/ML 1 ML 10 ML VIAL SQ SCH ×4 (07:48→20:14)
[2018-05-24] MEDS: POTASSIUM CHLORIDE ER 20 MEQ TAB.ER PO SCH (07:48)
[2018-05-24] MEDS: FLUCONAZOLE 100 MG TAB PO SCH (07:48)
[2018-05-24] MEDS: CARVEDILOL 12.5 MG TAB PO SCH ×2 (07:48→17:31)
[2018-05-24] MEDS: FUROSEMIDE 10 MG/ML 4 ML VIAL IV SCH ×3 (07:48→23:44)
[2018-05-24] MEDS: CLOTRIMAZOLE 1% CREAM 15 GM TUBE TOPICAL SCH ×2 (07:49→20:10)
[2018-05-24 08:32] LABS: Basophils % (A) 0 %; Eosinophils % (A) 0 %; HCT 30.6 % (39.0-53.0); HGB 9.6 gm/dL (13.0-17.5); Hypochromasia Moderate; Lymphocytes # (A) 0.9 k/uL (1.0-4.8); Lymphocytes % (A) 5 %; MCHC 31.2 g/dL (31.0-37.0); MCV 105.7 fL (80.0-100.0); Macrocytosis Moderate; Mean Platelet Volume 6.3; Monocytes # (A) 0.8 k/uL (0-1.0); Monocytes % (A) 4 %; Neutrophils # (A) 16.6 k/uL (1.3-7.7); Neutrophils % (A) 89 %; Platelet Count 315 k/uL (150-450); RBC 2.89 m/uL (4.30-5.90); RDW 14.7 % (11.5-15.5); WBC 18.7 k/uL (3.8-10.6)
--- NOTE | 2018-05-24 08:40 | PN ---
PROGRESS NOTE Mr. Mckee is an 82-year-old male who presented with symptoms of progressive dyspnea. He is status post coronary artery bypass grafting, aortic valve replacement and coronary artery bypass grafting as well as permanent pacemaker implantation. He has noted worsening peripheral edema. His BNP on admission was elevated. He is feeling better today. His breathing is better. He is denying any symptoms of chest pain. His appetite is good. He is able to eat. He denies any dizziness or palpitation. He has a prior history of recurrent right-sided pleural effusion and had underwent drainage of the effusion with multiple previous thoracentesis subsequently PleurX catheter placement. He had an echocardiogram performed during this admission that showed ejection fraction 45% to 50% with mild tricuspid and mild to moderate mitral regurgitation. MEDICATIONS: His medications at this time include Lipitor 10 mg daily, Coreg 25 mg daily, furosemide 40 mg IV q.8 hours, lisinopril 2.5 mg daily, Protonix and Coumadin. PHYSICAL EXAMINATION: Blood pressure 113/50 with the heart rate in 60s, LUNGS: With mild decrease in breath sounds. No wheezes. HEART: S1, S2 with systolic ejection murmur heard at the base. No diastolic murmur. ABDOMEN: Soft, nontender. EXTREMITIES: +1 to 2 edema bilaterally. IMPRESSION: 1. Worsening dyspnea with a possible combination of diastolic dysfunction heart failure with mild chronic obstructive lung disease. 2. Status post coronary artery bypass grafting and permanent pacemaker implantation. 3. Atrial fibrillation, anticoagulated. 4. Recurrent pleural effusion. RECOMMENDATION: From the cardiac standpoint, we will continue on the present treatment. I will continue the diuretic at this time. I will adjust the dose of his Coreg as well as the dose of his statin and depending on his progress, further recommendation will be made. MMODL / IJN: [id number] /
[2018-05-24 08:48] LABS: INR 1.6 (<1.2); Prothrombin Time 15.2 sec (9.0-12.0)
[2018-05-24 09:08] LABS: Calcium 8.6 mg/dL (8.4-10.2); Potassium 3.2 mmol/L (3.5-5.1)
[2018-05-24 11:16] LABS: Glucose,Whole Blood 142 mg/dL (75-99)
[2018-05-24] MEDS ORDERED: POTASSIUM CHLORIDE ER 20 MEQ TAB.ER PO STA (12:06)
--- NOTE | 2018-05-24 13:15 | P.CONS ---
History of Present Illness - Reason for Consult Consult date: 05/23/18 Anemia and suspected GI bleeding - History of Present Illness The patient is an 82-year-old male who presented to the emergency department for evaluation of worsening fatigue and shortness of breath. Patient has extensive history congestive heart failure recurrent pleural effusions for which he has a pleural catheter and receives pleurocentesis every 2 days. Patient reports that over the past day or 2 he has felt progressively worse, he feels more fatigued and short of breath. His basic lab work did reveal a hemoglobin drop to 8 from a baseline of 11. Patient denies any active bleeding , easy bruising. He denies any hematuria hematemesis or obvious blood in his stool. He had a prior upper endoscopy around 2 years ago that showed gastritis and short segment of Elmore's esophagus. Review of Systems Constitutional: No history of fever, chills or unintentional weight loss Neurologic: No history of headaches, double vision or other sensory are multiple changes Cardiopulmonary: No chest pains, shortness of breath or palpitations. Has history of coronary atherosclerotic heart disease, atrial fibrillation, hypertension, hyperlipidemia and COPD. There is also history of DVT Gastrointestinal: See present illness above Musculoskeletal: No joint complaints or swelling Genitourinary: No hematuria, dysuria or frequency. History of prostate disorder Skin: No skin rashes Psychiatric: No anxiety or depression Hematologic: History of anemia, no bleeding tendency Endocrine: No history of diabetes or thyroid disease Past Medical History Past Medical History: Atrial Fibrillation, Coronary Artery Disease (CAD), Cancer , Chest Pain / Angina, Heart Failure, COPD, Deep Vein Thrombosis (DVT), GERD/ Reflux, Hyperlipidemia, Hypertension, Myocardial Infarction (MO), Pneumonia, Prostate Disorder Additional Past Medical History / Comment(s): Home O2 at 3L/NC lately ATC, recurrent R pleural effusions, thoracic adenopathy, pneumonia with sepsis, bronchitis, bilateral lower leg edema/redness L lower leg, L leg DVT in 2006, chronic L leg pain/ neurological damage, BPH, prostrate cancer with surgery, constipation, recently had 4 teeth extracted, Last Myocardial Infarction Date:: 2005 History of Any Multi-Drug Resistant Organisms: None Reported Past Surgical History: Appendectomy, Cardiac Valve Replacement, Cholecystectomy , Heart Catheterization, Heart Catheterization With Stent, Hernia Repair, Pacemaker, Prostate Surgery Additional Past Surgical History / Comment(s): 2016 aortic valve replacement, bilateral cataracts removal, prostatectomy, penile implant x2, R sided thoracentesises, bilateral inguinal hernia repair, L leg dvt surgically removed , colonoscopies. Past Anesthesia/Blood Transfusion Reactions: Previous Problems w/ Anesthesia Additional Past Anesthesia/Blood Transfusion Reaction / Comm: "one time BP dropped too low" Date of Last Stent Placement:: 2005 Type of Cardiac Device: Permanent Pacemaker Device Placement Date:: 2004? Past Psychological History: Anxiety Smoking Status: Former smoker Past Alcohol Use History: None Reported Past Drug Use History: None Reported - Past Family History Brother(s) Family Medical History: Cancer Sister(s) Family Medical History: Cancer Father Family Medical History: Cancer Additional Family Medical History / Comment(s): Father had prostrate cancer. He had CAD/CABG. He at the age of 78yrs during coronary angioplasty. Mother Family Medical History: Myocardial Infarction (MO) Additional Family Medical History / Comment(s): Mother had a MO at the age of 35yrs. She had CABG. She lived to be 93 yrs old. Medications and Allergies Home Medications Medication Instructions Recorded Confirmed Type Carvedilol 25 mg PO DAILY 06/19/15 05/22/18 History Ferrous Sulfate [Iron (65 MG 325 mg PO DAILY 06/19/15 05/22/18 History Elemental)] oxyCODONE HCL 15 mg PO BID PRN 06/19/15 05/22/18 History LORazepam [Ativan] 0.5 mg PO QID PRN 07/28/16 05/22/18 History Ubidecarenone [Co Q-10] 200 mg PO DAILY 07/28/16 05/22/18 History Lovastatin [Mevacor] 20 mg PO HS 11/20/17 05/22/18 History Warfarin [Coumadin] 5 mg PO HS 11/20/17 05/22/18 History traZODone HCL 100 mg PO HS 11/20/17 05/22/18 History Furosemide [Lasix] 40 mg PO BID #60 tablet 11/21/17 05/22/18 Rx Polyethylene Glycol 3350 [Miralax] 17 gm PO DAILY powd.pack 02/07/18 05/22/18 Rx Lisinopril [Zestril] 2.5 mg PO DAILY 03/10/18 05/22/18 History Promethazine HCl 12.5 mg PO BID PRN 03/10/18 05/22/18 History Morphine Sulfate [Ms Contin] 60 mg PO Q12HR 04/01/18 05/22/18 History Multivitamins, Thera [Multivitamin 1 tab PO DAILY 04/01/18 05/22/18 History (formulary)] Pantoprazole [Protonix] 40 mg PO DAILY 04/01/18 05/22/18 History Sucralfate [Carafate] 1 gm PO BID 04/01/18 05/22/18 History Warfarin Sodium 2 mg PO HS 04/01/18 05/22/18 History Docusate [Colace] 100 mg PO BID cap 04/05/18 05/22/18 Rx Budesonide-Formot 160-4.5 Mcg 2 puff INHALATION RT-BID 04/10/18 05/22/18 History [Symbicort 160-4.5 Mcg Inhaler] Ipratropium-Albuterol Nebulize 3 ml INHALATION RT-QID 04/10/18 05/22/18 History [Duoneb 0.5 mg-3 mg/3 ml Soln] Allergies Allergy/AdvReac Type Severity Reaction Status Date / Time No Known Allergies Allergy Verified 05/22/18 11:21 Physical Exam Vitals: Vital Signs Temp Pulse Pulse Resp BP Pulse Ox 05/23/18 15:22 86 05/23/18 15:12 84 05/23/18 12:16 97.4 F L 60 18 133/63 98 05/23/18 11:07 78 05/23/18 10:57 76 05/23/18 07:28 82 05/23/18 07:18 80 05/23/18 07:17 80 05/23/18 07:07 80 05/23/18 04:59 96.8 F L 62 16 106/52 95 05/23/18 00:00 61 16 05/22/18 21:00 97.4 F L 61 16 111/61 100 05/22/18 19:31 88 05/22/18 19:18 90 05/22/18 19:08 88 05/22/18 15:47 90 05/22/18 15:36 86 Intake and Output 05/23/18 05/23/18 05/23/18 06:59 14:59 22:59 Intake Total 170 250 Balance 170 250 Intake: Intake, IV Titration 50 250 Amount Piperacillin-Tazobactam 3 50 .375 gm In Dextrose/Water 1 50ml.bag @ 12.5 mls/hr IVPB Q8H [facility] Rx#: [id number] Vancomycin 1,500 mg In 250 Sodium Chloride 0.9% 250 ml @ 125 mls/hr IVPB Q16H [facility] Rx#:[id number] Oral 120 Other: Voiding Method Toilet Toilet # Voids 1 5 # Bowel Movements 0 Weight 77.5 kg General: Appeared stated age, very pleasant in no acute distress Head and neck: Normocephalic and atraumatic, conjunctivae pink and sclerae not icteric, mucous membranes moist and pink. No masses in the neck or tracheal shifts Lungs: Clear to auscultation except for occasional crackles with dullness to percussion on the right lung base Heart: Irregular, no abnormal sounds, murmurs, gallops or friction rubs Abdomen: Soft, no masses or organomegalies, no tenderness, bowel sounds present Extremities: No clubbing, cyanosis or edema Neurologic: Alert and oriented 3, cranial nerves grossly intact, no gross sensory or motor abnormalities Results CBC & Chem 7: 05/24/18 07:59 05/24/18 07:59 Labs: Abnormal Lab Results - Last 24 Hours (Table) 05/22/18 05/22/18 05/23/18 Range/Units 16:56 20:23 06:29 RBC 2.92 L (4.30-5.90) m/uL Hgb 9.8 L (13.0-17.5) gm/dL Hct 30.9 L (39.0-53.0) % MCV 105.8 H (80.0-100.0) fL Neutrophils # 9.4 H (1.3-7.7) k/uL Lymphocytes # 0.6 L (1.0-4.8) k/uL PT (9.0-12.0) sec INR (<1.2) Sodium (137-145) mmol/L Chloride (98-107) mmol/L BUN (9-20) mg/dL Glucose (74-99) mg/dL POC Glucose (mg/dL) 166 H 234 H (75-99) mg/dL 09/30/18 09/30/18 09/30/18 Range/Units 06:29 06:38 06:51 RBC (4.30-5.90) m/uL Hgb (13.0-17.5) gm/dL Hct (39.0-53.0) % MCV (80.0-100.0) fL Neutrophils # (1.3-7.7) k/uL Lymphocytes # (1.0-4.8) k/uL PT 15.4 H (9.0-12.0) sec INR 1.7 H (<1.2) Sodium 136 L (137-145) mmol/L Chloride 95 L (98-107) mmol/L BUN 28 H (9-20) mg/dL Glucose 134 H (74-99) mg/dL POC Glucose (mg/dL) 161 H (75-99) mg/dL 05/23/18 Range/Units 11:07 RBC (4.30-5.90) m/uL Hgb (13.0-17.5) gm/dL Hct (39.0-53.0) % MCV (80.0-100.0) fL Neutrophils # (1.3-7.7) k/uL Lymphocytes # (1.0-4.8) k/uL PT (9.0-12.0) sec INR (<1.2) Sodium (137-145) mmol/L Chloride (98-107) mmol/L BUN (9-20) mg/dL Glucose (74-99) mg/dL POC Glucose (mg/dL) 259 H (75-99) mg/dL Microbiology - Last 24 Hours (Table) 05/22/18 02:56 Urine Culture - Final Urine,Voided 05/22/18 01:56 Blood Culture - Preliminary Blood No Growth after 24 hours Assessment and Plan Assessment: Symptomatic anemia could be on the basis of GI blood loss. With his history of Elmore's esophagus and since he is due for an upper endoscopy for that reason, consideration can be given for an upper endoscopy at this time to account for his anemia as well and rule out a current upper GI source of bleeding. Plan: I agree with your current management. Consider an upper endoscopy in the next 24-48 hours based on his course. May need to have a colonoscopy as well depending on those findings. Will dscuss with you and follow with you with interest.
[2018-05-24] MEDS: LORazepam 0.5 MG TAB PO PRN ×2 (13:26→20:21)
[2018-05-24] MEDS: HYDROcodone/APAP 5-325MG 1 EACH TAB PO PRN (13:27)
[2018-05-24 17:14] LABS: Glucose,Whole Blood 101 mg/dL (75-99)
--- NOTE | 2018-05-24 17:14 | P.PN ---
Subjective Progress Note Date: 05/24/18 This 82-year-old male patient has known history of coronary artery disease and previous aortic valve stenosis and the patient has undergone previous coronary artery bypass surgery and aortic valve replacement and he suffers from chronic atrial fibrillation and he has a permanent pacemaker in place. He has CHF with diastolic dysfunction and an ejection fraction is about 50-55% and moderate degree of pulmonary hypertension and previous history of DVT. The patient also has history of mediastinal lymphadenopathy and a bronchoscopy was done earlier showed no evidence of any malignancy. The patient has a recurrent right-sided pleural effusion and the patient has a Pleurx catheter in place and he is requiring drainage of 23-4 days. The patient came into the hospital because of worsening shortness of breath. He was found to have some increased CHF and fluid overload. Chest x-ray showed a chronic right-sided pleural effusion. BNP level was quite elevated. After being diuresis improved significantly and the patient is back to his baseline. No cough or sputum production. No chest that is so wheezing. He is on long-term anticoagulation and the patient's INR is currently down to 1.6. White cell count of 18.7. Hemoglobin is at 9.6. The patient is currently on Lasix 40 mg IV every 8 hours. The neck fluid balance is negative over the past 24-48 hours. The patient was also anemic at a time of admission. GI loss was suspected. The patient was seen by gastroenterology. He is known to have history of Elmore's esophagus and he is being considered for another endoscopy. Objective - Vital Signs Vital signs: Vital Signs Temp 97.5 F L 05/24/18 13:23 Pulse 66 05/24/18 15:21 Resp 18 05/24/18 13:23 BP 117/52 05/24/18 13:23 Pulse Ox 97 05/24/18 13:23 Intake & Output 05/23/18 05/24/18 05/24/18 18:59 06:59 18:59 Intake Total 250 740 Output Total 300 Balance 250 740 -300 Weight 76.3 kg Intake: Intake, IV Titration 250 300 Amount Piperacillin-Tazobactam 3 50 .375 gm In Dextrose/Water 1 50ml.bag @ 12.5 mls/hr IVPB Q8H [facility] Rx#: [id number] Vancomycin 1,500 mg In 250 250 Sodium Chloride 0.9% 250 ml @ 125 mls/hr IVPB Q16H [facility] Rx#:[id number] Oral 440 Output: Urine 300 Other: Voiding Method Toilet Toilet # Voids 5 1 3 # Bowel Movements 0 - Exam - Constitutional General appearance: average body habitus, no acute distress - EENT Eyes: EOMI, PERRLA ENT: hard of hearing Ears: bilateral: normal - Neck Neck: normal ROM Carotids: bilateral: upstroke normal Thyroid: bilateral: normal size - Respiratory Respiratory: right: diminished - Cardiovascular Rhythm: irregularly irregular Heart sounds: normal: S1, S2 - Gastrointestinal General gastrointestinal: normal bowel sounds - Genitourinary History of prostate cancer. - Integumentary Integumentary: normal turgor - Neurologic Neurologic: CNII-XII intact - Musculoskeletal Musculoskeletal: generalized weakness - Psychiatric Psychiatric: A&O x's 3, appropriate affect, intact judgment & insight - Labs CBC & Chem 7: 05/24/18 07:59 05/24/18 07:59 Labs: Abnormal Lab Results - Last 24 Hours (Table) 05/23/18 05/24/18 05/24/18 Range/Units 20:06 06:52 07:59 WBC 18.7 H (3.8-10.6) k/uL RBC 2.89 L (4.30-5.90) m/uL Hgb 9.6 L (13.0-17.5) gm/dL Hct 30.6 L (39.0-53.0) % MCV 105.7 H (80.0-100.0) fL Neutrophils # 16.6 H (1.3-7.7) k/uL Lymphocytes # 0.9 L (1.0-4.8) k/uL PT (9.0-12.0) sec INR (<1.2) Potassium (3.5-5.1) mmol/L Chloride (98-107) mmol/L BUN (9-20) mg/dL Glucose (74-99) mg/dL POC Glucose (mg/dL) 175 H 135 H (75-99) mg/dL 05/24/18 05/24/18 05/24/18 Range/Units 07:59 07:59 11:15 WBC (3.8-10.6) k/uL RBC (4.30-5.90) m/uL Hgb (13.0-17.5) gm/dL Hct (39.0-53.0) % MCV (80.0-100.0) fL Neutrophils # (1.3-7.7) k/uL Lymphocytes # (1.0-4.8) k/uL PT 15.2 H (9.0-12.0) sec INR 1.6 H (<1.2) Potassium 3.2 L (3.5-5.1) mmol/L Chloride 95 L (98-107) mmol/L BUN 36 H (9-20) mg/dL Glucose 124 H (74-99) mg/dL POC Glucose (mg/dL) 142 H (75-99) mg/dL Microbiology - Last 24 Hours (Table) 05/22/18 01:56 Blood Culture - Preliminary Blood No Growth after 48 hours Assessment and Plan Plan: Impression: #1 shortness of breath secondary to CHF, interstitial edema and worsening of the right-sided pleural effusion, and the patient improved with diuresis and evacuation of the right-sided pleural effusion via a Pleurx catheter. A repeat echo cardiogram was done and the patient has CHF with diastolic dysfunction with an ejection fraction of 50-55%. #2 anemia and the patient was asked to be seen by gastroenterology in consultation for another GI workup including EGD and colonoscopy. There is no evidence of any acute GI bleeding at this point in time. #3 Recurrent right-sided pleural effusions secondary to above, status post Pleurx catheter placement in March 2018. #4 History of pericarinal lymph node status post weighing FNA negative for malignancy. #5 Chronic obstructive pulmonary disease, currently inactive and stable. FEV1 value 73% of predicted. #6 Chronic atrial fibrillation, anticoagulated with warfarin. The INR is subtherapeutic at this point in time #7 Cardiac arrhythmia status post permanent pacemaker implantation. #8 Remote history of DVT in 2006. #9 Hypertension. #10 Hyperlipidemia. #11 Coronary artery disease with previous coronary artery bypass grafting. #12 Aortic valve stenosis status post aortic valve replacement utilizing a right prosthetic aortic valve. #13 History of prostate cancer. #14 Chronic pain syndrome. #15 Anxiety/depression. Plan Continue evacuation of the right-sided pleural effusion via Pleurx. IV diuretics with Lasix. 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 COPD stable and mild. Continue anticoagulation with warfarin. She denied between 2 and 3. Continue bronchodilators. Clinically improved. We'll continue to follow.
--- NOTE | 2018-05-24 17:17 | PN ---
PROGRESS NOTE DATE OF SERVICE: 05/24/2018 This 82-year-old gentleman admitted with shortness of breath, possible congestive heart failure acute exacerbation, pleural effusion, being closely monitored at this time. The patient also suspected GI bleed also. Gastroenterology and cardiology also following the patient closely along with Pulmonary and Gastroenterology, Dr. Maravilla is following the patient closely. No chest pain. No palpitations. No fever. PHYSICAL EXAM: Alert and oriented x3. Pulse 60, blood pressure 117/52, respiration 18, temperature 97.2, pulse ox 97% on room air. HEENT: Conjunctivae normal. Oral mucosa moist. Neck is no jugular venous distention. No carotid bruit. No lymph node enlargement. Cardiovascular: S1, S2 muffled. Respirations: Breath sounds diminished in the bases. A few scattered rhonchi. ABDOMEN: Soft, nontender. Central nervous system: No focal deficits. LABS: WBC 18.8, hemoglobin 9.2, sodium 130, potassium 3.2. ASSESSMENT: 1. Shortness of breath, multifactorial, congestive heart failure acute exacerbation, also has acute on chronic diastolic dysfunction, ejection fraction 50-55 percent, as well as chronic obstructive pulmonary disease acute exacerbation with acute purulent tracheobronchitis. 2. Status post multiple other multiple medical problems including drainage of the right pleural effusion. 3. Troponin 0.039, indeterminate. 4. Coumadin monitoring. 5. Anemia for evaluation, rule out upper gastrointestinal bleed. 6. History of atrial fibrillation. 7. History of coronary artery disease. 8. Chest pain. 9. History of congestive heart failure. 10.History of chronic obstructive pulmonary disease. 11.History of deep vein thrombosis. 12.Gastroesophageal reflux disease. 13.Hypertension. 14.Hyperlipidemia. 15.History of myocardial infarction. 16.History of chronic hypoxic respiratory failure on home O2 3 L nasal canula. 17.History of thoracic hilar lymphadenopathy status post biopsy with benign reports. 18.Bilateral feet pain and dermatitis. 19.Constipation. 20.History of aortic valve replacement. 21.History of coronary artery disease, stent. 22.History of anxiety. RECOMMENDATIONS AND DISCUSSION: I recommend to continue current medications, management and symptomatic treatment. Otherwise monitor closely. Continue the rest of medications, bronchodilators, antibiotics and Gastroenterology possible endoscope. Guarded prognosis. Further recommendations to follow. MMODL / IJN: [id number] / [facility]
[2018-05-24] MEDS ORDERED: WARFARIN 5 MG TAB PO ONE (18:00)
[2018-05-24] MEDS ORDERED: VANCOMYCIN TROUGH DUE 1 EACH MISC MISCELLANE ONE (18:30)
[2018-05-24] MEDS: traZODone HCL 100 MG TAB PO SCH (20:11)
[2018-05-24 20:16] LABS: Glucose,Whole Blood 115 mg/dL (75-99)
[2018-05-24] MEDS ORDERED: ATORVASTATIN 40 MG TAB PO SCH (21:00)
--- NOTE | 2018-05-24 21:22 | P.PN ---
Subjective Progress Note Date: 05/24/18 Principal diagnosis: Anemia, shortness of breath, fatigue Lying in bed in no acute complaints. Denying any hematemesis, hematochezia or melena. Objective - Vital Signs Vital signs: Vital Signs Temp 97.5 F L 05/24/18 13:23 Pulse 62 05/24/18 19:25 Resp 18 05/24/18 17:10 BP 117/52 05/24/18 13:23 Pulse Ox 97 05/24/18 13:23 Intake & Output 05/24/18 05/24/18 05/25/18 06:59 18:59 06:59 Intake Total 740 Output Total 300 Balance 740 -300 Weight 76.3 kg Intake: Intake, IV Titration 300 Amount Piperacillin-Tazobactam 3 50 .375 gm In Dextrose/Water 1 50ml.bag @ 12.5 mls/hr IVPB Q8H [facility] Rx#: [id number] Vancomycin 1,500 mg In 250 Sodium Chloride 0.9% 250 ml @ 125 mls/hr IVPB Q16H [facility] Rx#:[id number] Oral 440 Output: Urine 300 Other: Voiding Method Toilet Toilet # Voids 1 3 - Exam On physical examination, patient appears comfortable in no apparent distress. HEAD: Normocephalic, atraumatic. EYES: No scleral icterus. No conjunctival injection. MOUTH: No lesions, tongue midline. NECK: Trachea midline, no gross abnormalities. CHEST: Decreased air entry in all lung diaz. HEART: Irregularly irregular. ABDOMEN: Soft, obese. Bowel sounds are positive. No organomegaly. No guarding or rigidity. EXTREMITIES: Minimal pedal edema. SKIN: No rashes, no jaundice. NEUROLOGIC: Alert and oriented. No focal deficits. - Labs CBC & Chem 7: 05/24/18 07:59 05/24/18 07:59 Labs: Abnormal Lab Results - Last 24 Hours (Table) 05/24/18 05/24/18 05/24/18 Range/Units 06:52 07:59 07:59 WBC 18.7 H (3.8-10.6) k/uL RBC 2.89 L (4.30-5.90) m/uL Hgb 9.6 L (13.0-17.5) gm/dL Hct 30.6 L (39.0-53.0) % MCV 105.7 H (80.0-100.0) fL Neutrophils # 16.6 H (1.3-7.7) k/uL Lymphocytes # 0.9 L (1.0-4.8) k/uL PT (9.0-12.0) sec INR (<1.2) Potassium 3.2 L (3.5-5.1) mmol/L Chloride 95 L (98-107) mmol/L BUN 36 H (9-20) mg/dL Glucose 124 H (74-99) mg/dL POC Glucose (mg/dL) 135 H (75-99) mg/dL 05/24/18 05/24/18 05/24/18 Range/Units 07:59 11:15 17:13 WBC (3.8-10.6) k/uL RBC (4.30-5.90) m/uL Hgb (13.0-17.5) gm/dL Hct (39.0-53.0) % MCV (80.0-100.0) fL Neutrophils # (1.3-7.7) k/uL Lymphocytes # (1.0-4.8) k/uL PT 15.2 H (9.0-12.0) sec INR 1.6 H (<1.2) Potassium (3.5-5.1) mmol/L Chloride (98-107) mmol/L BUN (9-20) mg/dL Glucose (74-99) mg/dL POC Glucose (mg/dL) 142 H 101 H (75-99) mg/dL 05/24/18 Range/Units 20:14 WBC (3.8-10.6) k/uL RBC (4.30-5.90) m/uL Hgb (13.0-17.5) gm/dL Hct (39.0-53.0) % MCV (80.0-100.0) fL Neutrophils # (1.3-7.7) k/uL Lymphocytes # (1.0-4.8) k/uL PT (9.0-12.0) sec INR (<1.2) Potassium (3.5-5.1) mmol/L Chloride (98-107) mmol/L BUN (9-20) mg/dL Glucose (74-99) mg/dL POC Glucose (mg/dL) 115 H (75-99) mg/dL Microbiology - Last 24 Hours (Table) 05/22/18 01:56 Blood Culture - Preliminary Blood No Growth after 48 hours Assessment and Plan (1) Anemia Narrative/Plan: Chronic macrocytic anemia with patient's hemoglobin ranging in the 9-11 range since 2015 when the patient had EGD evaluation which was significant for gastritis and Bravo's esophagus. No signs or symptoms of GI bleed at this time. The patient did have a stool which was positive for occult blood. Current Visit: Yes Status: Acute Code(s): D64.9 - ANEMIA, UNSPECIFIED SNOMED Code(s): 611115154 (2) Bravo esophagus Narrative/Plan: Found on EGD in 2016. Current Visit: Yes Status: Acute Code(s): K22.70 - BRAVO'S ESOPHAGUS WITHOUT DYSPLASIA SNOMED Code(s): 799171860 Plan: Supportive care Continue Protonix therapy Monitor hemoglobin and hematocrit and transfuse as needed Okay for diet Will consider endoscopic evaluation with either EGD and colonoscopy or upper endoscopy alone when patient is medically optimized Thank you for allowing us to participate in the care of this patient we will continue to follow
[2018-05-25 06:51] LABS: Glucose,Whole Blood 105 mg/dL (75-99)
[2018-05-25] MEDS: LISINOPRIL 2.5 MG TAB PO SCH (07:55)
[2018-05-25] MEDS: SUCRALFATE 1 GM TAB PO SCH (07:56)
[2018-05-25] MEDS: POTASSIUM CHLORIDE ER 20 MEQ TAB.ER PO SCH (07:56)
[2018-05-25] MEDS: CARVEDILOL 12.5 MG TAB PO SCH (07:57)
[2018-05-25] MEDS: DOCUSATE 100 MG CAP PO SCH (07:57)
[2018-05-25] MEDS: MULTIVITAMINS, THERA 1 EACH TAB PO SCH (07:57)
[2018-05-25] MEDS: FLUCONAZOLE 100 MG TAB PO SCH (07:58)
[2018-05-25] MEDS: FUROSEMIDE 10 MG/ML 4 ML VIAL IV SCH (07:58)
[2018-05-25] MEDS: INSULIN ASPART 100 UNIT/ML 1 ML 10 ML VIAL SQ SCH ×2 (08:01→11:37)
[2018-05-25] MEDS: POLYETHYLENE GLYCOL 3350 17 GM POWD.PACK PO SCH ×2 (08:02→08:03)
[2018-05-25] MEDS: MORPHINE SULFATE ER 60 MG TABLET PO SCH (08:02)
[2018-05-25] MEDS: CLOTRIMAZOLE 1% CREAM 15 GM TUBE TOPICAL SCH (08:05)
[2018-05-25 08:16] LABS: Basophils % (A) 0 %; Eosinophils # (A) 0.2 k/uL (0-0.7); Eosinophils % (A) 1 %; HCT 28.4 % (39.0-53.0); HGB 8.9 gm/dL (13.0-17.5); Hypochromasia Moderate; Lymphocytes # (A) 1.6 k/uL (1.0-4.8); Lymphocytes % (A) 11 %; MCH 33.3 pg (25.0-35.0); MCHC 31.4 g/dL (31.0-37.0); MCV 105.9 fL (80.0-100.0); Macrocytosis Moderate; Mean Platelet Volume 6.4; Monocytes % (A) 7 %; Neutrophils # (A) 11.1 k/uL (1.3-7.7); Neutrophils % (A) 78 %; Platelet Count 301 k/uL (150-450); RBC 2.68 m/uL (4.30-5.90); RDW 14.7 % (11.5-15.5); WBC 14.2 k/uL (3.8-10.6)
[2018-05-25 08:18] LABS: Calcium 8.4 mg/dL (8.4-10.2); Potassium 4.1 mmol/L (3.5-5.1)
[2018-05-25] MEDS: IPRATROPIUM-ALBUTEROL 3 ML NEB INHALATION SCH ×3 (08:25→16:44)
[2018-05-25] MEDS: SYMBICORT 160-4.5 MCG INHALER INHALATION SCH (08:25)
[2018-05-25 08:26] LABS: INR 2.4 (<1.2); Prothrombin Time 21.8 sec (9.0-12.0)
[2018-05-25] MEDS: CO Q10 200 MG PO SCH (09:24)
--- NOTE | 2018-05-25 09:36 | P.PN ---
Subjective Mr. Mckee is seen and examined sitting up in the chair. He states his breathing is improving slowly but not back to baseline. He has been getting up to the bathroom with minimal dyspnea but hasn't been ambulating much other than that. Ongoing lower extremity edema, mild improvement. Laboratory data reviewed, WBC 14.2, hgb 8.9, plt 301, INR 2.4, sodium 137, potassium 4.1, creatinine 1.48. Blood pressure 114/50 heart rate 60 afebrile maintaining oxygen saturation on nasal cannula. GI services is following and recommended serial hemoglobin and hematocrits with transfusions as needed. Endoscopy when medically stable. Currently maintained on Lasix 40 mg IV 3 times a day. Weight has been fluctuating since admission and inaccurate intake/output documented. Objective - Vital Signs Vital signs: Vital Signs Temp 97.7 F 05/25/18 08:21 Pulse 68 05/25/18 08:35 Resp 16 05/25/18 04:34 BP 114/50 05/25/18 08:21 Pulse Ox 94 L 05/25/18 08:21 Intake & Output 05/24/18 05/25/18 05/25/18 18:59 06:59 18:59 Intake Total 1200 Output Total 300 300 Balance -300 900 Weight 78.8 kg Intake: Oral 1200 Output: Urine 300 300 Other: Voiding Method Toilet Toilet # Voids 3 1 # Bowel Movements 1 - Exam GENERAL: Well-appearing, well-nourished and in no acute distress. NECK: Supple without JVD or thyromegaly. LUNGS: Faint expiratory wheeze noted throughout, no rhonchi or rales. Diminished bilaterally. Respiration equal and unlabored. HEART: Regular rate and rhythm with systolic ejection murmur at the base, no rubs or gallops. S1 and S2 heard. EXTREMITIES: Normal range of motion, 1+ pitting bilateral lower extremity edema. No clubbing or cyanosis. Peripheral pulses intact. - Labs CBC & Chem 7: 05/25/18 07:29 05/25/18 07:29 Labs: Abnormal Lab Results - Last 24 Hours (Table) 05/24/18 05/24/18 05/24/18 Range/Units 07:59 11:15 17:13 WBC (3.8-10.6) k/uL RBC (4.30-5.90) m/uL Hgb (13.0-17.5) gm/dL Hct (39.0-53.0) % MCV (80.0-100.0) fL Neutrophils # (1.3-7.7) k/uL PT (9.0-12.0) sec INR (<1.2) Potassium 3.2 L (3.5-5.1) mmol/L Chloride 95 L (98-107) mmol/L Carbon Dioxide (22-30) mmol/L BUN 36 H (9-20) mg/dL Creatinine (0.66-1.25) mg/dL Glucose 124 H (74-99) mg/dL POC Glucose (mg/dL) 142 H 101 H (75-99) mg/dL 05/24/18 05/25/18 05/25/18 Range/Units 20:14 06:49 07:29 WBC 14.2 H (3.8-10.6) k/uL RBC 2.68 L (4.30-5.90) m/uL Hgb 8.9 L (13.0-17.5) gm/dL Hct 28.4 L (39.0-53.0) % MCV 105.9 H (80.0-100.0) fL Neutrophils # 11.1 H (1.3-7.7) k/uL PT (9.0-12.0) sec INR (<1.2) Potassium (3.5-5.1) mmol/L Chloride (98-107) mmol/L Carbon Dioxide (22-30) mmol/L BUN (9-20) mg/dL Creatinine (0.66-1.25) mg/dL Glucose (74-99) mg/dL POC Glucose (mg/dL) 115 H 105 H (75-99) mg/dL 05/25/18 05/25/18 Range/Units 07:29 07:29 WBC (3.8-10.6) k/uL RBC (4.30-5.90) m/uL Hgb (13.0-17.5) gm/dL Hct (39.0-53.0) % MCV (80.0-100.0) fL Neutrophils # (1.3-7.7) k/uL PT 21.8 H (9.0-12.0) sec INR 2.4 H (<1.2) Potassium (3.5-5.1) mmol/L Chloride 95 L (98-107) mmol/L Carbon Dioxide 33 H (22-30) mmol/L BUN 50 H (9-20) mg/dL Creatinine 1.48 H (0.66-1.25) mg/dL Glucose (74-99) mg/dL POC Glucose (mg/dL) (75-99) mg/dL Microbiology - Last 24 Hours (Table) 05/22/18 01:56 Blood Culture - Preliminary Blood No Growth after 72 hours Assessment and Plan Assessment: ASSESSMENT Worsening dyspnea with possible combination of diastolic dysfunction heart failure with mild COPD. 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 History of coronary artery disease status post bypass grafting History of permanent pacemaker implantation secondary to sick sinus syndrome History of prosthetic aortic valve replacement PLAN Decrease diuretics to BID secondary to elevated kidney function. Increase activity and ambulation in the halls. Follow kidney function and electrolytes in the morning. Repeat chest xray tomorrow morning. INR is therapeutic, continue coumadin 5 mg at HS. Further recommendations to follow. Nurse Practitioner note has been reviewed, I agree with a documented findings and plan of care. Patient was seen and examined.
--- NOTE | 2018-05-25 09:46 | P.PN ---
Subjective Progress Note Date: 05/25/18 Principal diagnosis: Anemia shortness of breath fatigue Denies hematemesis hematochezia melena. Bowel movement this morning was dark brown-like black in color. Hemoglobin down today 8.9 from 9.6. Receiving warfarin INR 2.4. Objective - Vital Signs Vital signs: Vital Signs Temp 97.7 F 05/25/18 08:21 Pulse 68 05/25/18 08:35 Resp 16 05/25/18 04:34 BP 114/50 05/25/18 08:21 Pulse Ox 94 L 05/25/18 08:21 Intake & Output 05/24/18 05/25/18 05/25/18 18:59 06:59 18:59 Intake Total 1200 Output Total 300 300 Balance -300 900 Weight 78.8 kg Intake: Oral 1200 Output: Urine 300 300 Other: Voiding Method Toilet Toilet # Voids 3 1 # Bowel Movements 1 - Exam General appearance: The patient is alert, oriented, in no acute distress. HET: Head is normocephalic and atraumatic. Pupils are equal and reactive. Oropharynx is clear without lesions. Neck: Supple without lymphadenopathy. Trachea midline. Heart: S1 S2. Regular rate and rhythm. Lungs: No crackles or wheezes are heard. Bilateral diminishment in bases. Pleurex catheter in place without erythema. Abdomen: Soft, nontender, nondistended with bowel sounds. No peritoneal signs. No palpable organomegaly or masses. Extremities: Normal skin color and turgor. No cyanosis, rash, ulceration, clubbing, or edema. Radial and pedal pulses are 2/4 bilaterally. Neurological: No focal deficits. Strength and sensation are grossly intact. - Labs CBC & Chem 7: 05/25/18 07:29 05/25/18 07:29 Labs: Abnormal Lab Results - Last 24 Hours (Table) 05/24/18 05/24/18 05/24/18 Range/Units 11:15 17:13 20:14 WBC (3.8-10.6) k/uL RBC (4.30-5.90) m/uL Hgb (13.0-17.5) gm/dL Hct (39.0-53.0) % MCV (80.0-100.0) fL Neutrophils # (1.3-7.7) k/uL PT (9.0-12.0) sec INR (<1.2) Chloride (98-107) mmol/L Carbon Dioxide (22-30) mmol/L BUN (9-20) mg/dL Creatinine (0.66-1.25) mg/dL POC Glucose (mg/dL) 142 H 101 H 115 H (75-99) mg/dL 05/25/18 05/25/18 05/25/18 Range/Units 06:49 07:29 07:29 WBC 14.2 H (3.8-10.6) k/uL RBC 2.68 L (4.30-5.90) m/uL Hgb 8.9 L (13.0-17.5) gm/dL Hct 28.4 L (39.0-53.0) % MCV 105.9 H (80.0-100.0) fL Neutrophils # 11.1 H (1.3-7.7) k/uL PT (9.0-12.0) sec INR (<1.2) Chloride 95 L (98-107) mmol/L Carbon Dioxide 33 H (22-30) mmol/L BUN 50 H (9-20) mg/dL Creatinine 1.48 H (0.66-1.25) mg/dL POC Glucose (mg/dL) 105 H (75-99) mg/dL 05/25/18 Range/Units 07:29 WBC (3.8-10.6) k/uL RBC (4.30-5.90) m/uL Hgb (13.0-17.5) gm/dL Hct (39.0-53.0) % MCV (80.0-100.0) fL Neutrophils # (1.3-7.7) k/uL PT 21.8 H (9.0-12.0) sec INR 2.4 H (<1.2) Chloride (98-107) mmol/L Carbon Dioxide (22-30) mmol/L BUN (9-20) mg/dL Creatinine (0.66-1.25) mg/dL POC Glucose (mg/dL) (75-99) mg/dL Microbiology - Last 24 Hours (Table) 05/22/18 01:56 Blood Culture - Preliminary Blood No Growth after 72 hours Assessment and Plan (1) Anemia Current Visit: Yes Status: Acute Code(s): D64.9 - ANEMIA, UNSPECIFIED SNOMED Code(s): 613825491 (2) Warfarin-induced coagulopathy Current Visit: Yes Status: Acute Code(s): D68.32 - HEMORRHAGIC DISORD D/T EXTRINSIC CIRCULATING ANTICOAGULANTS; T45.515A - ADVERSE EFFECT OF ANTICOAGULANTS, INITIAL ENCOUNTER SNOMED Code(s): 09553022 (3) Bravo esophagus Current Visit: Yes Status: Acute Code(s): K22.70 - BRAVO'S ESOPHAGUS WITHOUT DYSPLASIA SNOMED Code(s): 126905714 Plan: 1. Recommend CBC monitoring hemoglobin is slightly down today from yesterday without overt bleeding. Diet as tolerated. If hemoglobin continues to decrease consideration for inpatient endoscopic will be evaluated. We'll continue to follow with you. Assessment and plan a care discussed with Dr. Cali
[2018-05-25 11:33] LABS: Glucose,Whole Blood 106 mg/dL (75-99)
[2018-05-25] MEDS: PANTOPRAZOLE 40 MG TABLET PO SCH (12:26)
[2018-05-25 12:46] VITALS: BP 134/61; PULSE 60; RESP 20; TEMP 97.4
--- NOTE | 2018-05-25 14:08 | P.PN ---
Subjective Progress Note Date: 05/25/18 Principal diagnosis: Dyspnea with chronic right pleural effusion status post Pleurx catheter. This 82-year-old male patient has known history of coronary artery disease and previous aortic valve stenosis and the patient has undergone previous coronary artery bypass surgery and aortic valve replacement and he suffers from chronic atrial fibrillation and he has a permanent pacemaker in place. He has CHF with diastolic dysfunction and an ejection fraction is about 50-55% and moderate degree of pulmonary hypertension and previous history of DVT. The patient also has history of mediastinal lymphadenopathy and a bronchoscopy was done earlier showed no evidence of any malignancy. The patient has a recurrent right-sided pleural effusion and the patient has a Pleurx catheter in place and he is requiring drainage of 23-4 days. The patient came into the hospital because of worsening shortness of breath. He was found to have some increased CHF and fluid overload. Chest x-ray showed a chronic right-sided pleural effusion. BNP level was quite elevated. After being diuresis improved significantly and the patient is back to his baseline. No cough or sputum production. No chest that is so wheezing. He is on long-term anticoagulation and the patient's INR is currently down to 1.6. White cell count of 18.7. Hemoglobin is at 9.6. The patient is currently on Lasix 40 mg IV every 8 hours. The neck fluid balance is negative over the past 24-48 hours. The patient was also anemic at a time of admission. GI loss was suspected. The patient was seen by gastroenterology. He is known to have history of Elmore's esophagus and he is being considered for another endoscopy. The patient is seen again today 05/25/2018 in follow-up on the regular medical floor. He is awake and alert in no acute distress. He sitting up in chair at the bedside. He has been diuresing well. He is maintaining good O2 saturations up to 100% on 3 L/m per nasal cannula. She's afebrile. Hemodynamically stable. White count 14.2. Hemoglobin 8.9. INR 2.4. Creatinine 1.48. His been converted to oral diuretics. He is quite anxious to go home. Objective - Vital Signs Vital signs: Vital Signs Temp 97.4 F L 05/25/18 12:25 Pulse 60 05/25/18 12:25 Resp 20 05/25/18 12:25 BP 134/61 05/25/18 12:25 Pulse Ox 100 05/25/18 12:25 Intake & Output 05/24/18 05/25/18 05/25/18 18:59 06:59 18:59 Intake Total 1200 Output Total 300 300 Balance -300 900 Weight 78.8 kg Intake: Oral 1200 Output: Urine 300 300 Other: Voiding Method Toilet Toilet Toilet # Voids 3 1 # Bowel Movements 1 - Exam - Constitutional General appearance: average body habitus, no acute distress - EENT Eyes: EOMI, PERRLA ENT: hard of hearing Ears: bilateral: normal - Neck Neck: normal ROM Carotids: bilateral: upstroke normal Thyroid: bilateral: normal size - Respiratory Respiratory: right: diminished - Cardiovascular Rhythm: irregularly irregular Heart sounds: normal: S1, S2 - Gastrointestinal General gastrointestinal: normal bowel sounds - Genitourinary History of prostate cancer. - Integumentary Integumentary: normal turgor - Neurologic Neurologic: CNII-XII intact - Musculoskeletal Musculoskeletal: generalized weakness - Psychiatric Psychiatric: A&O x's 3, appropriate affect, intact judgment & insight - Labs CBC & Chem 7: 05/25/18 07:29 05/25/18 07:29 Labs: Abnormal Lab Results - Last 24 Hours (Table) 05/24/18 05/24/18 05/25/18 Range/Units 17:13 20:14 06:49 WBC (3.8-10.6) k/uL RBC (4.30-5.90) m/uL Hgb (13.0-17.5) gm/dL Hct (39.0-53.0) % MCV (80.0-100.0) fL Neutrophils # (1.3-7.7) k/uL PT (9.0-12.0) sec INR (<1.2) Chloride (98-107) mmol/L Carbon Dioxide (22-30) mmol/L BUN (9-20) mg/dL Creatinine (0.66-1.25) mg/dL POC Glucose (mg/dL) 101 H 115 H 105 H (75-99) mg/dL 05/25/18 05/25/18 05/25/18 Range/Units 07:29 07:29 07:29 WBC 14.2 H (3.8-10.6) k/uL RBC 2.68 L (4.30-5.90) m/uL Hgb 8.9 L (13.0-17.5) gm/dL Hct 28.4 L (39.0-53.0) % MCV 105.9 H (80.0-100.0) fL Neutrophils # 11.1 H (1.3-7.7) k/uL PT 21.8 H (9.0-12.0) sec INR 2.4 H (<1.2) Chloride 95 L (98-107) mmol/L Carbon Dioxide 33 H (22-30) mmol/L BUN 50 H (9-20) mg/dL Creatinine 1.48 H (0.66-1.25) mg/dL POC Glucose (mg/dL) (75-99) mg/dL 05/25/18 Range/Units 11:32 WBC (3.8-10.6) k/uL RBC (4.30-5.90) m/uL Hgb (13.0-17.5) gm/dL Hct (39.0-53.0) % MCV (80.0-100.0) fL Neutrophils # (1.3-7.7) k/uL PT (9.0-12.0) sec INR (<1.2) Chloride (98-107) mmol/L Carbon Dioxide (22-30) mmol/L BUN (9-20) mg/dL Creatinine (0.66-1.25) mg/dL POC Glucose (mg/dL) 106 H (75-99) mg/dL Microbiology - Last 24 Hours (Table) 05/22/18 01:56 Blood Culture - Preliminary Blood No Growth after 72 hours Assessment and Plan Assessment: Impression: #1 Anemia with weakness of unclear etiology. Current hemoglobin 8.9. GI services are on the case. #2 Acute exacerbation of diastolic congestive heart failure. [place] left ventricular systolic function with ejection fraction 50-55%. #3 Recurrent right-sided pleural effusions secondary to above, status post Pleurx catheter placement in March 2018. #4 History of pericarinal lymph node status post weighing FNA negative for malignancy. #5 Chronic obstructive pulmonary disease, currently inactive and stable. FEV1 value 73% of predicted. #6 Chronic atrial fibrillation, anticoagulated with warfarin. #7 Cardiac arrhythmia status post permanent pacemaker implantation. #8 Remote history of DVT in 2006. #9 Hypertension. #10 Hyperlipidemia. #11 Coronary artery disease with previous coronary artery bypass grafting. #12 Aortic valve stenosis status post aortic valve replacement utilizing a right prosthetic aortic valve. #13 History of prostate cancer. #14 Chronic pain syndrome. #15 Anxiety/depression. Plan: The patient was seen and evaluated by Dr. Ovalle. He is fairly stable from the pulmonary standpoint. The patient is quite adamant about going home today. He has had some worsening in his creatinine. Since converted to oral Lasix. GI on consult regarding the anemia. Upon discharge he'll follow-up with Dr. Ballard. We'll repeat a chest x-ray in the office. He is to have his Pleurx catheter drained every other day by visiting nurses which were in place prior to his readmission. I, the cosigning physician, performed a history & physical examination of the patient. Lungs sounds with crackles in the right posterior base. Diminished. Maintaining good O2 saturations in the 90s on 3 L/m per nasal cannula. I discussed the assessment and plan of care with my nurse practitioner, Margarita Soto. I attest to the above note as dictated by her.
--- NOTE | 2018-05-25 14:17 | P.DS ---
Providers Date of admission: 05/22/18 01:48 Attending physician: Venus Yee Consults: 05/22/18 01:47 Consult Physician Routine Consulting Provider: Jae Ovalle Consult Reason/Comments: pulmonary Do you want consulting provider notified?: Yes, Notify in am 05/22/18 02:59 Consult Physician Routine Consulting Provider: Mendez Maravilla Consult Reason/Comments: upper GIB Do you want consulting provider notified?: Yes, Notify in am 05/22/18 11:09 Consult Physician Routine Consulting Provider: Elroy Macdonald Consult Reason/Comments: hx of heart failure, elevated troponin Do you want consulting provider notified?: Yes Primary care physician: Adolfo Lieberman DO Hospital Course: 80-year-old man with chronic diastolic dysfunction multiple pleural effusions admitted which are as of breath again. Patient does have a I did well stenosis coronary artery bypass graft to bring in the past. Patient had Pleurx catheter in place and patient is being discharged on Pleurx catheter which will be drained. Patient creatinine has worsened because of which I want to keep him here but patient wanted to be discharged. His elevated creatinine is secondary to excessive diuretic therapy I'm expecting his creatinine to improve as we decrease the diuretic therapy repeat basic metabolic profile will be obtained as an outpatient along with INR in 2 days. Patient is definitely high risk for readmission because of his multiple multiple comorbidities multiple hospitalizations in the past and anxiety related to his clinical condition and being home alone. Patient is not willing to go to rehabilitation via rest sitting up home care for him. A she has multiple recurrent pleural effusions in the past. And feeling better wanted to be discharged. Patient normally uses 3 L at home saturating 100% on 3 L here patient right pleural effusion will be drained via Pleurx catheter today before discharge. PHYSICAL EXAMINATION: GENERAL: The patient is alert and oriented x3, not in any acute distress. Well developed, well nourished. HEENT: Pupils are round and equally reacting to light. EOMI. No scleral icterus. No conjunctival pallor. Normocephalic, atraumatic. No pharyngeal erythema. No thyromegaly. CARDIOVASCULAR: S1 and S2 present. No murmurs, rubs, or gallops. PULMONARY: Minimal crackles in right lower lung bases. ABDOMEN: Soft, nontender, nondistended, normoactive bowel sounds. No palpable organomegaly. MUSCULOSKELETAL: No joint swelling or deformity. EXTREMITIES: No cyanosis, clubbing, or pedal edema. NEUROLOGICAL: Gross neurological examination did not reveal any focal deficits. SKIN: No rashes. -Anemia of chronic disease no acute GI bleed at this time -Acute exacerbation of chronic diastolic dysfunction previous ejection fraction around 55% -Recurrent pleural effusion secondary to heart failure and artery stenosis patient has a Pleurx catheter in place -Chronic. Carinal lymphadenopathy and malignancy was ruled out -COPD without any significant exacerbation -Atrial fibrillation rate controlled therapeutic on Coumadin patient is being discharged on 5 mg of warfarin -Pacemaker implantation secondary to some kind of cardiac arrhythmia in the past -Hypertension -Hyperlipidemia -History of DVT in the past -Coronary artery disease -History of prostate cancer - aortic stenosis status post prosthetic aortic valve -Chronic pain syndrome: Patient is on multiple opiate analogies C of which need to be tapered down if possible by PCP -Anxiety and depression Plan - Discharge Summary Discharge Rx Participant: Yes New Discharge Prescriptions: New Clotrimazole Cream [Lotrimin Cream] 1 applic TOPICAL BID #1 each Fluconazole [Diflucan] 100 mg PO DAILY #7 tab Potassium Chloride ER [K-Dur 20] 20 meq PO DAILY #30 tab.er.prt Continue Carvedilol 25 mg PO DAILY oxyCODONE HCL 15 mg PO BID PRN PRN Reason: Pain LORazepam [Ativan] 0.5 mg PO QID PRN PRN Reason: Anxiety Ubidecarenone [Co Q-10] 200 mg PO DAILY Lovastatin [Mevacor] 20 mg PO HS traZODone HCL 100 mg PO HS Warfarin [Coumadin] 5 mg PO HS Furosemide [Lasix] 40 mg PO BID #60 tablet Polyethylene Glycol 3350 [Miralax] 17 gm PO DAILY powd.pack Lisinopril [Zestril] 2.5 mg PO DAILY Promethazine HCl 12.5 mg PO BID PRN PRN Reason: Nausea Morphine Sulfate [Ms Contin] 60 mg PO Q12HR Multivitamins, Thera [Multivitamin (formulary)] 1 tab PO DAILY Pantoprazole [Protonix] 40 mg PO DAILY Sucralfate [Carafate] 1 gm PO BID Docusate [Colace] 100 mg PO BID cap Budesonide-Formot 160-4.5 Mcg [Symbicort 160-4.5 Mcg Inhaler] 2 puff INHALATION RT-BID Ipratropium-Albuterol Nebulize [Duoneb 0.5 mg-3 mg/3 ml Soln] 3 ml INHALATION RT-QID Discontinued Ferrous Sulfate [Iron (65 MG Elemental)] 325 mg PO DAILY Warfarin Sodium 2 mg PO HS Discharge Medication List Carvedilol 25 mg PO DAILY 06/19/15 [History] oxyCODONE HCL 15 mg PO BID PRN 06/19/15 [History] LORazepam [Ativan] 0.5 mg PO QID PRN 07/28/16 [History] Ubidecarenone [Co Q-10] 200 mg PO DAILY 07/28/16 [History] Lovastatin [Mevacor] 20 mg PO HS 11/20/17 [History] Warfarin [Coumadin] 5 mg PO HS 11/20/17 [History] traZODone HCL 100 mg PO HS 11/20/17 [History] Furosemide [Lasix] 40 mg PO BID #60 tablet 11/21/17 [Rx] Polyethylene Glycol 3350 [Miralax] 17 gm PO DAILY powd.pack 02/07/18 [Rx] Lisinopril [Zestril] 2.5 mg PO DAILY 03/10/18 [History] Promethazine HCl 12.5 mg PO BID PRN 03/10/18 [History] Morphine Sulfate [Ms Contin] 60 mg PO Q12HR 04/01/18 [History] Multivitamins, Thera [Multivitamin (formulary)] 1 tab PO DAILY 04/01/18 [History ] Pantoprazole [Protonix] 40 mg PO DAILY 04/01/18 [History] Sucralfate [Carafate] 1 gm PO BID 04/01/18 [History] Docusate [Colace] 100 mg PO BID cap 04/05/18 [Rx] Budesonide-Formot 160-4.5 Mcg [Symbicort 160-4.5 Mcg Inhaler] 2 puff INHALATION RT-BID 04/10/18 [History] Ipratropium-Albuterol Nebulize [Duoneb 0.5 mg-3 mg/3 ml Soln] 3 ml INHALATION RT -QID 04/10/18 [History] Clotrimazole Cream [Lotrimin Cream] 1 applic TOPICAL BID #1 each 05/25/18 [Rx] Fluconazole [Diflucan] 100 mg PO DAILY #7 tab 05/25/18 [Rx] Potassium Chloride ER [K-Dur 20] 20 meq PO DAILY #30 tab.er.prt 05/25/18 [Rx] Follow up Appointment(s)/Referral(s): Adolfo Lieberman DO [Primary Care Provider] - 3 Days [facility], [NON-STAFF] - 1 Week Ravi Goetz MD [STAFF PHYSICIAN] - 2 Weeks Ambulatory/Diagnostic Orders: Basic Metabolic Panel [LAB.AMB] Time Frame: 2 Days, Location: None Selected Prothrombin Time INR [LAB.AMB] Time Frame: 2 Days, Location: None Selected Discharge Disposition: HOME WITH HOME HEALTH SERVICES
[2018-05-25] MEDS ORDERED: WARFARIN 5 MG TAB PO ONE (18:00)
[2018-05-25] MEDS ORDERED: FUROSEMIDE 10 MG/ML 4 ML VIAL IV SCH (21:00)
== END 2018-05-25 17:55 | disposition home health service (06) | DRG 291 ==
LOC: EC 00:12 → 5MS5E 01:48
PROVIDERS: ADMIT Internal Medicine; ATTEND Internal Medicine
DX: I11.0 Hypertensive heart disease with heart failure (principal); J18.9 Pneumonia, unspecified organism; J44.0 Chronic obstructive pulmonary disease with (acute) lower respiratory infection; J44.1 Chronic obstructive pulmonary disease with (acute) exacerbation; J91.8 Pleural effusion in other conditions classified elsewhere; N17.9 Acute kidney failure, unspecified; J96.11 Chronic respiratory failure with hypoxia; I50.33 Acute on chronic diastolic (congestive) heart failure; I27.20 Pulmonary hypertension, unspecified; J20.9 Acute bronchitis, unspecified; I48.2 Chronic atrial fibrillation; I34.0 Nonrheumatic mitral (valve) insufficiency; D63.8 Anemia in other chronic diseases classified elsewhere; K21.9 Gastro-esophageal reflux disease without esophagitis; E78.5 Hyperlipidemia, unspecified; N40.0 Benign prostatic hyperplasia without lower urinary tract symptoms; I25.2 Old myocardial infarction; I25.10 Atherosclerotic heart disease of native coronary artery without angina pectoris; G89.4 Chronic pain syndrome; K22.70 Barrett's esophagus without dysplasia; K29.70 Gastritis, unspecified, without bleeding; L30.9 Dermatitis, unspecified; M79.671 Pain in right foot; M79.672 Pain in left foot; K59.00 Constipation, unspecified; T50.2X5A Adverse effect of carbonic-anhydrase inhibitors, benzothiadiazides and other diuretics, initial encounter; R79.1 Abnormal coagulation profile; T45.515A Adverse effect of anticoagulants, initial encounter; R77.8 Other specified abnormalities of plasma proteins; R19.5 Other fecal abnormalities; F41.9 Anxiety disorder, unspecified; Z99.81 Dependence on supplemental oxygen; Z79.01 Long term (current) use of anticoagulants; Z79.891 Long term (current) use of opiate analgesic; Z79.51 Long term (current) use of inhaled steroids; Z79.899 Other long term (current) drug therapy; Z86.718 Personal history of other venous thrombosis and embolism; Z87.01 Personal history of pneumonia (recurrent); Z85.46 Personal history of malignant neoplasm of prostate; Z90.49 Acquired absence of other specified parts of digestive tract; Z95.5 Presence of coronary angioplasty implant and graft; Z95.0 Presence of cardiac pacemaker; Z95.2 Presence of prosthetic heart valve; Z98.42 Cataract extraction status, left eye; Z98.41 Cataract extraction status, right eye; Z96.0 Presence of urogenital implants; Z87.891 Personal history of nicotine dependence; Z86.59 Personal history of other mental and behavioral disorders; Z95.1 Presence of aortocoronary bypass graft; Z80.42 Family history of malignant neoplasm of prostate; Z82.49 Family history of ischemic heart disease and other diseases of the circulatory system; Z80.9 Family history of malignant neoplasm, unspecified
CPT/HCPCS: 36415; 71046; 80048; 80053; 80202; 81003; 82272; 83605; 83880; 84484; 85025; 85610; 85730; 87040; 87086; 93005; 93306; 94640; 94760; 96365; 99285

== ENCOUNTER 2018-05-27 00:41 | Emergency (ER) | payer MEDICARE ==
[2018-05-27 00:48] VITALS: TEMP 98.4
--- NOTE | 2018-05-27 01:51 | XR ---
EXAMINATION TYPE: XR chest 1V portable DATE OF EXAM: 05/27/2018 COMPARISON: 05/22/2018 HISTORY: Cough TECHNIQUE: Single frontal view of the chest is obtained. FINDINGS: Heart is enlarged. There is probably vascular congestion. There is blunting of right costo phrenic angle. There are sternal wires. There is left axillary pacemaker with the lead tip over the r ight ventricle. There are chest leads. IMPRESSION: Congestive heart failure with right pleural effusion. Moderate cardiomegaly. No change.
--- NOTE | 2018-05-27 02:15 | ED ---
General Adult HPI - General Chief complaint: Upper Respiratory Infection Stated complaint: JOSELO Time Seen by Provider: 05/27/18 01:01 Source: patient Mode of arrival: wheelchair Limitations: no limitations - History of Present Illness Initial comments: This patient is an 82-year-old man who presents with complaint that he is having thick sputum when he coughs. He states that he had onset of a mild cough to 3 days ago. Over the course of this evening and into tonight it feels like the sputum is so thick that he is having hard time clearing it. He is not feeling short of breath at the moment, but requests something to break up the sputum. Denies fever or chills. No chest pain. No leg pain or swelling. Onset/Timin -: days(s) Consistency: constant Improves with: none Worsens with: none Associated Symptoms: cough Treatments Prior to Arrival: none - Related Data Home Medications Medication Instructions Recorded Confirmed Carvedilol 25 mg PO DAILY 06/19/15 05/22/18 oxyCODONE HCL 15 mg PO BID PRN 06/19/15 05/22/18 LORazepam [Ativan] 0.5 mg PO QID PRN 07/28/16 05/22/18 Ubidecarenone [Co Q-10] 200 mg PO DAILY 07/28/16 05/22/18 Lovastatin [Mevacor] 20 mg PO HS 11/20/17 05/22/18 Warfarin [Coumadin] 5 mg PO HS 11/20/17 05/22/18 traZODone HCL 100 mg PO HS 11/20/17 05/22/18 Lisinopril [Zestril] 2.5 mg PO DAILY 03/10/18 05/22/18 Promethazine HCl 12.5 mg PO BID PRN 03/10/18 05/22/18 Morphine Sulfate [Ms Contin] 60 mg PO Q12HR 04/01/18 05/22/18 Multivitamins, Thera [Multivitamin 1 tab PO DAILY 04/01/18 05/22/18 (formulary)] Pantoprazole [Protonix] 40 mg PO DAILY 04/01/18 05/22/18 Sucralfate [Carafate] 1 gm PO BID 04/01/18 05/22/18 Budesonide-Formot 160-4.5 Mcg 2 puff INHALATION RT-BID 04/10/18 05/22/18 [Symbicort 160-4.5 Mcg Inhaler] Ipratropium-Albuterol Nebulize 3 ml INHALATION RT-QID 04/10/18 05/22/18 [Duoneb 0.5 mg-3 mg/3 ml Soln] Previous Rx's Medication Instructions Recorded Furosemide [Lasix] 40 mg PO BID #60 tablet 11/21/17 Polyethylene Glycol 3350 [Miralax] 17 gm PO DAILY powd.pack 02/07/18 Docusate [Colace] 100 mg PO BID cap 04/05/18 Clotrimazole Cream [Lotrimin Cream] 1 applic TOPICAL BID #1 each 05/25/18 Fluconazole [Diflucan] 100 mg PO DAILY #7 tab 05/25/18 Potassium Chloride ER [K-Dur 20] 20 meq PO DAILY #30 tab.er.prt 05/25/18 guaiFENesin [Mucinex] 600 mg PO BID #14 tab.er.12h 05/27/18 Allergies Allergy/AdvReac Type Severity Reaction Status Date / Time No Known Allergies Allergy Verified 05/27/18 00:47 Review of Systems ROS Statement: Those systems with pertinent positive or pertinent negative responses have been documented in the HPI. ROS Other: All systems not noted in ROS Statement are negative. Constitutional: Denies: fever, chills Respiratory: Reports: cough, other (Sputum). Denies: dyspnea, wheezes, hemoptysis Cardiovascular: Denies: chest pain, palpitations, edema Gastrointestinal: Denies: abdominal pain, nausea, vomiting Genitourinary: Denies: dysuria, hematuria Musculoskeletal: Denies: back pain Skin: Denies: rash Neurological: Denies: headache, weakness, numbness Past Medical History Past Medical History: Atrial Fibrillation, Coronary Artery Disease (CAD), Cancer , Chest Pain / Angina, Heart Failure, COPD, Deep Vein Thrombosis (DVT), GERD/ Reflux, Hyperlipidemia, Hypertension, Myocardial Infarction (AR), Pneumonia, Prostate Disorder Additional Past Medical History / Comment(s): Home O2 at 3L/NC lately ATC, recurrent R pleural effusions, thoracic adenopathy, pneumonia with sepsis, bronchitis, bilateral lower leg edema/redness L lower leg, L leg DVT in 2006, chronic L leg pain/ neurological damage, BPH, prostrate cancer with surgery, constipation, recently had 4 teeth extracted, Last Myocardial Infarction Date:: 2005 History of Any Multi-Drug Resistant Organisms: None Reported Past Surgical History: Appendectomy, Cardiac Valve Replacement, Cholecystectomy , Heart Catheterization, Heart Catheterization With Stent, Hernia Repair, Pacemaker, Prostate Surgery Additional Past Surgical History / Comment(s): 2015 aortic valve replacement, bilateral cataracts removal, prostatectomy, penile implant x2, R sided thoracentesises, bilateral inguinal hernia repair, L leg dvt surgically removed , colonoscopies. Past Anesthesia/Blood Transfusion Reactions: Previous Problems w/ Anesthesia Additional Past Anesthesia/Blood Transfusion Reaction / Comment(s): "one time BP dropped too low" Date of Last Stent Placement:: 2005 Type of Cardiac Device: Permanent Pacemaker Device Placement Date:: 2004? Past Psychological History: Anxiety Smoking Status: Former smoker Past Alcohol Use History: None Reported Past Drug Use History: None Reported - Past Family History Brother(s) Family Medical History: Cancer Sister(s) Family Medical History: Cancer Father Family Medical History: Cancer Additional Family Medical History / Comment(s): Father had prostrate cancer. He had CAD/CABG. He at the age of 78yrs during coronary angioplasty. Mother Family Medical History: Myocardial Infarction (AR) Additional Family Medical History / Comment(s): Mother had a AR at the age of 35yrs. She had CABG. She lived to be 93 yrs old. General Exam Limitations: no limitations General appearance: alert, in no apparent distress Head exam: Present: atraumatic, normocephalic Eye exam: Present: normal appearance. Absent: scleral icterus, conjunctival injection ENT exam: Present: normal oropharynx Respiratory exam: Present: rhonchi, other (Occasional nonproductive cough during the exam). Absent: respiratory distress, wheezes, rales, stridor Cardiovascular Exam: Present: regular rate, normal rhythm, normal heart sounds. Absent: systolic murmur, diastolic murmur, rubs, gallop GI/Abdominal exam: Present: soft. Absent: distended, tenderness, guarding, rebound, mass Extremities exam: Present: normal inspection, normal capillary refill. Absent: pedal edema, calf tenderness Back exam: Present: normal inspection. Absent: CVA tenderness (R), CVA tenderness (L) Neurological exam: Present: alert Skin exam: Present: warm, dry, intact, normal color. Absent: rash Course Vital Signs 05/27/18 05/27/18 05/27/18 00:44 01:47 03:00 Temperature 98.4 F Pulse Rate 62 60 Respiratory 26 H 19 Rate Blood Pressure 147/61 146/67 O2 Sat by Pulse 86 L 97 96 Oximetry 05/27/18 05/27/18 04:00 05:00 Temperature Pulse Rate 60 60 Respiratory 16 16 Rate Blood Pressure 146/67 148/67 O2 Sat by Pulse 99 100 Oximetry EKG Findings - EKG Comments: EKG Findings:: Patient's 12-lead ECG shows what appears to be paced rhythm at a rate of 60 bpm which appears to be a normal paced rhythm Medical Decision Making - Lab Data Result diagrams: 05/27/18 02:25 05/27/18 02:25 Lab Results 05/27/18 05/27/18 05/27/18 Range/Units 02:25 02:25 02:25 WBC 10.2 (3.8-10.6) k/uL RBC 2.66 L (4.30-5.90) m/uL Hgb 8.7 L (13.0-17.5) gm/dL Hct 26.8 L (39.0-53.0) % MCV 100.9 H D (80.0-100.0) fL MCH 32.8 (25.0-35.0) pg MCHC 32.5 (31.0-37.0) g/dL RDW 14.2 (11.5-15.5) % Plt Count 254 (150-450) k/uL Neutrophils % 74 % Lymphocytes % 13 % Monocytes % 7 % Eosinophils % 3 % Basophils % 0 % Neutrophils # 7.5 (1.3-7.7) k/uL Lymphocytes # 1.3 (1.0-4.8) k/uL Monocytes # 0.7 (0-1.0) k/uL Eosinophils # 0.3 (0-0.7) k/uL Basophils # 0.0 (0-0.2) k/uL Macrocytosis Slight PT 20.3 H (9.0-12.0) sec INR 2.3 H (<1.2) APTT 39.8 H (22.0-30.0) sec Sodium 133 L (137-145) mmol/L Potassium 4.6 (3.5-5.1) mmol/L Chloride 95 L (98-107) mmol/L Carbon Dioxide 31 H (22-30) mmol/L Anion Gap 7 mmol/L BUN 49 H (9-20) mg/dL Creatinine 1.18 (0.66-1.25) mg/dL Est GFR (CKD-EPI)AfAm 66 (>60 ml/min/1.73 sqM) Est GFR (CKD-EPI)NonAf 57 (>60 ml/min/1.73 sqM) Glucose 109 H (74-99) mg/dL Calcium 8.4 (8.4-10.2) mg/dL Total Bilirubin 0.6 (0.2-1.3) mg/dL AST 34 (17-59) U/L ALT 28 (21-72) U/L Alkaline Phosphatase 58 (38-126) U/L Total Creatine Kinase (55-170) U/L CK-MB (CK-2) (0.0-2.4) ng/mL CK-MB (CK-2) Rel Index Troponin I (0.000-0.034) ng/mL NT-Pro-B Natriuret Pep pg/mL Total Protein 6.0 L (6.3-8.2) g/dL Albumin 3.3 L (3.5-5.0) g/dL 05/27/18 05/27/18 Range/Units 02:25 02:25 WBC (3.8-10.6) k/uL RBC (4.30-5.90) m/uL Hgb (13.0-17.5) gm/dL Hct (39.0-53.0) % MCV (80.0-100.0) fL MCH (25.0-35.0) pg MCHC (31.0-37.0) g/dL RDW (11.5-15.5) % Plt Count (150-450) k/uL Neutrophils % % Lymphocytes % % Monocytes % % Eosinophils % % Basophils % % Neutrophils # (1.3-7.7) k/uL Lymphocytes # (1.0-4.8) k/uL Monocytes # (0-1.0) k/uL Eosinophils # (0-0.7) k/uL Basophils # (0-0.2) k/uL Macrocytosis PT (9.0-12.0) sec INR (<1.2) APTT (22.0-30.0) sec Sodium (137-145) mmol/L Potassium (3.5-5.1) mmol/L Chloride (98-107) mmol/L Carbon Dioxide (22-30) mmol/L Anion Gap mmol/L BUN (9-20) mg/dL Creatinine (0.66-1.25) mg/dL Est GFR (CKD-EPI)AfAm (>60 ml/min/1.73 sqM) Est GFR (CKD-EPI)NonAf (>60 ml/min/1.73 sqM) Glucose (74-99) mg/dL Calcium (8.4-10.2) mg/dL Total Bilirubin (0.2-1.3) mg/dL AST (17-59) U/L ALT (21-72) U/L Alkaline Phosphatase (38-126) U/L Total Creatine Kinase 23 L (55-170) U/L CK-MB (CK-2) 0.7 (0.0-2.4) ng/mL CK-MB (CK-2) Rel Index 3.0 Troponin I 0.027 (0.000-0.034) ng/mL NT-Pro-B Natriuret Pep 5940 pg/mL Total Protein (6.3-8.2) g/dL Albumin (3.5-5.0) g/dL Disposition Clinical Impression: Bronchitis Disposition: HOME SELF-CARE Condition: Fair Instructions: Acute Bronchitis (ED) Prescriptions: guaiFENesin [Mucinex] 600 mg PO BID #14 tab.er.12h Is patient prescribed a controlled substance at d/c from ED?: No Referrals: Adolfo Lieberman DO [Primary Care Provider] - 1-2 days
[2018-05-27 02:48] LABS: Basophils % (A) 0 %; Eosinophils # (A) 0.3 k/uL (0-0.7); Eosinophils % (A) 3 %; HCT 26.8 % (39.0-53.0); HGB 8.7 gm/dL (13.0-17.5); Lymphocytes # (A) 1.3 k/uL (1.0-4.8); Lymphocytes % (A) 13 %; MCH 32.8 pg (25.0-35.0); MCHC 32.5 g/dL (31.0-37.0); Macrocytosis Slight; Mean Platelet Volume 6.9; Monocytes # (A) 0.7 k/uL (0-1.0); Monocytes % (A) 7 %; Neutrophils # (A) 7.5 k/uL (1.3-7.7); Neutrophils % (A) 74 %; Platelet Count 254 k/uL (150-450); RBC 2.66 m/uL (4.30-5.90); RDW 14.2 % (11.5-15.5); WBC 10.2 k/uL (3.8-10.6)
[2018-05-27 02:51] LABS: MCV 100.9 fL (80.0-100.0)
[2018-05-27 03:01] LABS: INR 2.3 (<1.2); Partial Thromboplastin Time 39.8 sec (22.0-30.0); Prothrombin Time 20.3 sec (9.0-12.0)
[2018-05-27 03:11] LABS: Albumin 3.3 g/dL (3.5-5.0); Calcium 8.4 mg/dL (8.4-10.2); Potassium 4.6 mmol/L (3.5-5.1); Total Bilirubin 0.6 mg/dL (0.2-1.3)
[2018-05-27 03:17] VITALS: PULSE 60
[2018-05-27] MEDS ORDERED: guaiFENesin 600 MG TABLET.ER PO STA (03:35)
[2018-05-27 03:38] LABS: Creatine Kinase MB 0.7 ng/mL (0.0-2.4); Troponin I 0.027 ng/mL (0.000-0.034)
[2018-05-27 04:03] VITALS: RESP 16
[2018-05-27] MEDS ORDERED: FUROSEMIDE 10 MG/ML 4 ML VIAL IV STA (04:30)
[2018-05-27 05:15] VITALS: BP 148/67
== END 2018-05-27 06:34 | disposition home or self-care (01) ==
LOC: EC 00:41
DX: J40 Bronchitis, not specified as acute or chronic (principal); I48.91 Unspecified atrial fibrillation; I25.119 Atherosclerotic heart disease of native coronary artery with unspecified angina pectoris; J44.9 Chronic obstructive pulmonary disease, unspecified; I11.0 Hypertensive heart disease with heart failure; I50.9 Heart failure, unspecified; I25.2 Old myocardial infarction; K21.9 Gastro-esophageal reflux disease without esophagitis; E78.5 Hyperlipidemia, unspecified; Z86.718 Personal history of other venous thrombosis and embolism; Z87.891 Personal history of nicotine dependence; Z95.5 Presence of coronary angioplasty implant and graft; Z95.2 Presence of prosthetic heart valve; Z95.0 Presence of cardiac pacemaker; Z79.01 Long term (current) use of anticoagulants; Z79.02 Long term (current) use of antithrombotics/antiplatelets; Z79.51 Long term (current) use of inhaled steroids; Z79.899 Other long term (current) drug therapy
CPT/HCPCS: 36415; 93005; 83880; 80053; 82550; 82553; 84484; 85025; 85610; 85730; 71045; 99285; 96374; J1940

== ENCOUNTER 2018-05-28 12:48 | Inpatient (IN) | payer MEDICARE ==
[2018-05-28] MEDS ORDERED: ASPIRIN 81 MG PO STA (14:59)
--- NOTE | 2018-05-28 15:02 | ED ---
General Adult HPI - General Chief complaint: Recheck/Abnormal Lab/Rx Stated complaint: Foot pain/long-term admit Time Seen by Provider: 05/28/18 14:52 Source: patient Mode of arrival: wheelchair Limitations: physical limitation - History of Present Illness Initial comments: Patient is an 82-year-old male presents with chief complaint of cough and shortness of breath. The patient was evaluated early this morning by Dr. Escobedo , diagnosed with acute on chronic congestive heart failure, but ultimately decided that he wanted to go home. He followed up with his primary care doctor who requested he come back to the hospital for admission. The patient states that he wants to be placed in a long-term. Patient currently on supplement oxygen, he states he does not have any trouble breathing. He is actively coughing up brown sputum. - Related Data Home Medications Medication Instructions Recorded Confirmed Carvedilol 25 mg PO DAILY 06/19/15 05/22/18 oxyCODONE HCL 15 mg PO BID PRN 06/19/15 05/28/18 LORazepam [Ativan] 0.5 mg PO QID PRN 07/28/16 05/22/18 Ubidecarenone [Co Q-10] 200 mg PO DAILY 07/28/16 05/22/18 Lovastatin [Mevacor] 20 mg PO HS 11/20/17 05/22/18 Warfarin [Coumadin] 5 mg PO HS 11/20/17 05/28/18 traZODone HCL 100 mg PO HS 11/20/17 05/28/18 Lisinopril [Zestril] 2.5 mg PO DAILY 03/10/18 05/22/18 Promethazine HCl 12.5 mg PO BID PRN 03/10/18 05/22/18 Morphine Sulfate [Ms Contin] 60 mg PO Q12HR 04/01/18 05/22/18 Multivitamins, Thera [Multivitamin 1 tab PO DAILY 04/01/18 05/22/18 (formulary)] Pantoprazole [Protonix] 40 mg PO DAILY 04/01/18 05/22/18 Sucralfate [Carafate] 1 gm PO BID 04/01/18 05/22/18 Budesonide-Formot 160-4.5 Mcg 2 puff INHALATION RT-BID 04/10/18 05/22/18 [Symbicort 160-4.5 Mcg Inhaler] Ipratropium-Albuterol Nebulize 3 ml INHALATION RT-QID 04/10/18 05/22/18 [Duoneb 0.5 mg-3 mg/3 ml Soln] Previous Rx's Medication Instructions Recorded Furosemide [Lasix] 40 mg PO BID #60 tablet 11/21/17 Polyethylene Glycol 3350 [Miralax] 17 gm PO DAILY powd.pack 02/07/18 Docusate [Colace] 100 mg PO BID cap 04/05/18 Clotrimazole Cream [Lotrimin Cream] 1 applic TOPICAL BID #1 each 05/25/18 Fluconazole [Diflucan] 100 mg PO DAILY #7 tab 05/25/18 Potassium Chloride ER [K-Dur 20] 20 meq PO DAILY #30 tab.er.prt 05/25/18 guaiFENesin [Mucinex] 600 mg PO BID #14 tab.er.12h 05/27/18 Allergies Allergy/AdvReac Type Severity Reaction Status Date / Time No Known Allergies Allergy Verified 05/28/18 14:14 Review of Systems ROS Statement: Those systems with pertinent positive or pertinent negative responses have been documented in the HPI. ROS Other: All systems not noted in ROS Statement are negative. Respiratory: Reports: cough, dyspnea Past Medical History Past Medical History: Atrial Fibrillation, Coronary Artery Disease (CAD), Cancer , Chest Pain / Angina, Heart Failure, COPD, Deep Vein Thrombosis (DVT), GERD/ Reflux, Hyperlipidemia, Hypertension, Myocardial Infarction (CO), Pneumonia, Prostate Disorder Additional Past Medical History / Comment(s): Home O2 at 3L/NC , recurrent R pleural effusions, thoracic adenopathy, pneumonia with sepsis, bronchitis, bilateral lower leg edema/redness L lower leg, L leg DVT in 2006, chronic L leg pain/ neurological damage, BPH, prostrate cancer with surgery, constipation, recently had 4 teeth extracted, Last Myocardial Infarction Date:: 2005 History of Any Multi-Drug Resistant Organisms: None Reported Past Surgical History: Appendectomy, Cardiac Valve Replacement, Cholecystectomy , Heart Catheterization, Heart Catheterization With Stent, Hernia Repair, Pacemaker, Prostate Surgery Additional Past Surgical History / Comment(s): 2016 aortic valve replacement, bilateral cataracts removal, prostatectomy, penile implant x2, R sided thoracentesises, bilateral inguinal hernia repair, L leg dvt surgically removed , colonoscopies. Past Anesthesia/Blood Transfusion Reactions: Previous Problems w/ Anesthesia Additional Past Anesthesia/Blood Transfusion Reaction / Comment(s): "one time BP dropped too low" Date of Last Stent Placement:: 2005 Type of Cardiac Device: Permanent Pacemaker Device Placement Date:: 2004? Past Psychological History: Anxiety Smoking Status: Former smoker Past Alcohol Use History: None Reported Past Drug Use History: None Reported - Past Family History Brother(s) Family Medical History: Cancer Sister(s) Family Medical History: Cancer Father Family Medical History: Cancer Additional Family Medical History / Comment(s): Father had prostrate cancer. He had CAD/CABG. He at the age of 78yrs during coronary angioplasty. Mother Family Medical History: Myocardial Infarction (CO) Additional Family Medical History / Comment(s): Mother had a CO at the age of 35yrs. She had CABG. She lived to be 93 yrs old. General Exam Limitations: physical limitation General appearance: alert, in no apparent distress Head exam: Present: atraumatic, normocephalic Eye exam: Present: normal appearance, PERRL ENT exam: Present: normal exam Neck exam: Present: normal inspection Respiratory exam: Present: wheezes, rales, rhonchi Cardiovascular Exam: Present: regular rate, normal rhythm GI/Abdominal exam: Present: soft. Absent: distended, tenderness Rectal exam: Present: deferred Extremities exam: Present: normal inspection Back exam: Present: normal inspection Neurological exam: Present: alert, oriented X3 Psychiatric exam: Present: normal affect, normal mood Skin exam: Present: warm, dry, intact Course Vital Signs 05/28/18 05/28/18 05/28/18 12:51 13:30 14:00 Temperature 97.9 F Pulse Rate 57 L 60 60 Respiratory 22 20 Rate Blood Pressure 140/61 126/56 143/65 O2 Sat by Pulse 91 L 100 100 Oximetry 05/28/18 05/28/18 05/28/18 14:30 15:21 15:28 Temperature Pulse Rate 60 60 60 Respiratory Rate Blood Pressure 156/65 O2 Sat by Pulse 99 Oximetry Medical Decision Making - Medical Decision Making Patient presents with chief complaint of cough and shortness of breath. On initial evaluation, vital signs are stable however patient does have a pulse ox of 91% on subluminal oxygen. He is in no respiratory distress at this time. Previous visit from this morning reviewed, patient found to be in acute heart failure, with likely bronchitis versus pneumonia. We'll repeat EKG, venous blood gas, troponin, BNP. We'll start patient on azithromycin and Rocephin, sent blood cultures, and start diuresis. case discussed with Dr. Hernandez who accepts admission. patient aware of care plan and is agreeable. admission orders placed, further orders per sound physician. Disposition Clinical Impression: CHF exacerbation, CAP (community acquired pneumonia), Hypoxia Disposition: ADMITTED IP TO THIS HOSP Condition: Fair Is patient prescribed a controlled substance at d/c from ED?: No Referrals: Adolfo Lieberman DO [Primary Care Provider] - 1-2 days Decision to Admit Reason: Admit from EC - Out of Hospital Transfer - Req. Specs Out of Hospital Transfer - Requested Specifics: Telemetry Unit
[2018-05-28] MEDS ORDERED: AZITHROMYCIN 500 MG in SODIUM CHLORIDE 0.9% 250 ML IVPB STA (15:03)
[2018-05-28] MEDS ORDERED: IPRATROPIUM-ALBUTEROL 3 ML NEB INHALATION STA (15:03)
[2018-05-28] MEDS ORDERED: FUROSEMIDE 10 MG/ML 4 ML VIAL IV STA (15:05)
[2018-05-28] MEDS ORDERED: NALOXONE 0.4 MG/ML 1 ML VIAL IV PRN (15:30)
[2018-05-28 15:39] LABS: Basophils % (A) 0 %; Eosinophils # (A) 0.3 k/uL (0-0.7); Eosinophils % (A) 3 %; HCT 26.3 % (39.0-53.0); HGB 8.7 gm/dL (13.0-17.5); Lymphocytes # (A) 1.2 k/uL (1.0-4.8); Lymphocytes % (A) 11 %; MCH 33.2 pg (25.0-35.0); MCV 100.6 fL (80.0-100.0); Macrocytosis Slight; Monocytes # (A) 0.7 k/uL (0-1.0); Monocytes % (A) 6 %; Neutrophils # (A) 8.8 k/uL (1.3-7.7); Neutrophils % (A) 78 %; Platelet Count 247 k/uL (150-450); RBC 2.61 m/uL (4.30-5.90); RDW 14.2 % (11.5-15.5); WBC 11.3 k/uL (3.8-10.6)
[2018-05-28 15:58] LABS: Calcium 8.4 mg/dL (8.4-10.2); Potassium 4.1 mmol/L (3.5-5.1)
--- NOTE | 2018-05-28 19:44 | HP ---
HISTORY AND PHYSICAL CHIEF COMPLAINT: Shortness of breath and weakness. HISTORY OF PRESENT ILLNESS: This 82-year-old gentleman with a past medical history of multiple medical problems, including atrial fibrillation, CAD, CHF, COPD, DVT, GERD, hypertension, myocardial infarction, being followed by Dr. Lieberman in the outpatient setting, was recently admitted to [facility]. The patient had multiple evaluations and admissions for CHF, acute exacerbation, with acute on chronic diastolic dysfunction. Patient also had right pleural effusion and PleurX drainage at this time. Apparently the nurses did not come yesterday and the patient complained of increased shortness of breath as well as weakness. The patient came to [facility] and was admitted for further evaluation and treatment. The patient has very poor social support. There is no history of fever, rigor or chills. PAST MEDICAL HISTORY: 1. Atrial fibrillation. 2. History of CHF with chronic diastolic dysfunction. 3. GERD. 4. Hypertension. 5. Hyperlipidemia. 6. History of PleurX drainage. 7. Previous history of lymph node abnormalities. HOME MEDICATIONS: 1. Coumadin 5 mg at bedtime. 2. Trazodone 100 mg at bedtime. 3. Oxycodone 15 mg b.i.d. p.r.n. 4. K-Dur 10 mEq p.o. daily. 5. MiraLAX 17 grams daily. 6. Mucinex 600 mg p.o. b.i.d. 7. Diflucan 100 mg p.o. daily. 8. Lotrimin 1 application b.i.d. 9. Coenzyme-Q 200 mg p.o. daily. 10.Carafate 1 gram b.i.d. 11.Promethazine 12.5 mg b.i.d. p.r.n. 12.Protonix 40 mg p.o. daily. 13.Multivitamins 1 p.o. daily. 14.MS Contin 60 mg p.o. b.i.d. 15.Mevacor 20 mg p.o. at bedtime. 16.Zestril 2.5 mg p.o. daily. 17.Ativan 0.5 mg q.i.d. p.r.n. 18.DuoNeb q.i.d. 19.Lasix 40 mg p.o. b.i.d. 20.Colace 100 mg p.o. b.i.d. 21.Coreg 25 mg p.o. daily. 22.Symbicort 160/4.5 two puffs b.i.d. ALLERGIES: NONE. FAMILY HISTORY: History of prostate cancer in the family and CAD, CABG. SOCIAL HISTORY: Previous history of smoking. No history of alcohol intake. REVIEW OF SYSTEMS: ENT: No diminished hearing. No diminished vision. CARDIOVASCULAR SYSTEM: As mentioned earlier. RESPIRATORY SYSTEM: As mentioned earlier. GI: As mentioned earlier. : As mentioned earlier. NERVOUS SYSTEM: As mentioned earlier. ALLERGY/IMMUNOLOGY: No asthma, hayfever. MUSCULOSKELETAL: As mentioned earlier. HEMATOLOGY/ONCOLOGY: No history of anemia. ENDOCRINE: As mentioned earlier. CONSTITUTIONAL: As mentioned earlier. DERMATOLOGY: Negative. RHEUMATOLOGY: Negative. PSYCHIATRY: As mentioned earlier. PHYSICAL EXAMINATION: Patient is alert, oriented x3. Pulse is 65, blood pressure 115/60, respirations 16, temperature 98.3, pulse ox 97% on 3 L. HEENT: Conjunctivae normal. Oral mucosa moist. NECK: Jugular venous distention seen at the root of the neck. No carotid bruit. No lymph node enlargement. CARDIOVASCULAR SYSTEM: S1, S2 muffled. No S3. No S4. RESPIRATORY SYSTEM: Breath sounds diminished at the bases. A few expiratory rhonchi also present. ABDOMEN: Soft, nontender. No mass palpable. LEGS: No edema. No swelling. NERVOUS SYSTEM: Higher functions as mentioned earlier. Moves all 4 limbs. No focal motor or sensory deficit. LYMPHATICS: No lymph node palpable in neck, axillae or groin. SKIN: No ulcer, rash, bleeding. LABS: WBC 11.3, hemoglobin 8.7, sodium 135. ASSESSMENT: 1. Congestive heart failure, acute exacerbation, with acute on chronic diastolic dysfunction. 2. Right recurrent pleural effusion, status post PleurX drainage. 3. Gait dysfunction and generalized weakness. 4. Increased white count. 5. Anemia. 6. Increased mean corpuscular volume. 7. Hyponatremia. 8. Atrial fibrillation. 9. Coronary artery disease. 10.Congestive heart failure. 11.History of chronic obstructive pulmonary disease. 12.History of deep venous thrombosis. 13.History of gastroesophageal reflux disease. 14.Hypertension. 15.Hyperlipidemia. 16.History of myocardial infarction. 17.History of prostate disorder. 18.Chronic hypoxic respiratory failure, on home oxygen 3 L nasal cannula. 19.History of appendectomy. 20.History of cardiac valve replacement. 21.History of coronary artery disease, stent. 22.History of hernia repair. 23.History of aortic valve replacement. 24.Anxiety, depression. 25.History of thoracic and hilar lymphadenopathy, status post biopsy recently; benign findings apparently. 26.Pain and dermatitis in bilateral feet. 27.Constipation. 28.FULL CODE. RECOMMENDATIONS AND DISCUSSION: In this 82-year-old gentleman who presented with multiple complex medical issues, we will monitor the patient closely, continue the current medications, continue symptomatic treatment. Otherwise at this time I recommend IV diuretics. Resume the home medication. Empiric antibiotics. I would also recommend PT/OT evaluation and possible ECF rehab. Guarded prognosis because of multiple complex medical issues. Further recommendations to follow. MMFELICITYL / DEEPN: [id number] /
[2018-05-28] MEDS ORDERED: PROMETHAZINE 25 MG TAB PO PRN (20:04)
[2018-05-28] MEDS ORDERED: IPRATROPIUM-ALBUTEROL 3 ML NEB INHALATION PRN (20:05)
[2018-05-28] MEDS ORDERED: ACETAMINOPHEN TAB 500 MG TAB PO PRN (20:06)
[2018-05-28] MEDS ORDERED: HYDROmorphone 1 MG/ML 1 ML SYRINGE IVP PRN (20:11)
[2018-05-28 20:45] LABS: INR 1.9 (<1.2); Prothrombin Time 17.6 sec (9.0-12.0)
[2018-05-28 20:51] LABS: Albumin 3.3 g/dL (3.5-5.0); Total Bilirubin 0.5 mg/dL (0.2-1.3); Total Protein 6.1 g/dL (6.3-8.2)
[2018-05-28] MEDS: HYDROcodone/APAP 5-325MG 1 EACH TAB PO PRN (20:54)
[2018-05-28] MEDS: LORazepam 0.5 MG TAB PO PRN (20:54)
[2018-05-28] MEDS: ATORVASTATIN 10 MG TAB PO SCH (20:55)
[2018-05-28] MEDS: DOCUSATE 100 MG CAP PO SCH (20:55)
[2018-05-28] MEDS: CLOTRIMAZOLE 1% CREAM 15 GM TUBE TOPICAL SCH (20:55)
[2018-05-28] MEDS: FUROSEMIDE 10 MG/ML 4 ML VIAL IV SCH (20:55)
[2018-05-28] MEDS: SUCRALFATE 1 GM TAB PO SCH (20:56)
[2018-05-28] MEDS: guaiFENesin 600 MG TABLET.ER PO SCH (20:56)
[2018-05-28] MEDS: LEVOFLOXACIN 500MG-D5W PMX 500 MG in DEXTROSE/WATER 1 100ML.BAG IVPB SCH (20:56)
[2018-05-28] MEDS: traZODone HCL 50 MG TAB PO SCH (20:57)
[2018-05-28] MEDS: WARFARIN 5 MG TAB PO SCH (20:58)
[2018-05-29] MEDS: MORPHINE SULFATE ER 60 MG TABLET PO SCH ×3 (00:27→22:34)
[2018-05-29] MEDS: TEMAZEPAM 15 MG CAP PO PRN (00:30)
[2018-05-29 08:32] LABS: Basophils % (A) 0 %; Eosinophils # (A) 0.4 k/uL (0-0.7); Eosinophils % (A) 4 %; HCT 27.8 % (39.0-53.0); HGB 9.6 gm/dL (13.0-17.5); Lymphocytes # (A) 1.2 k/uL (1.0-4.8); Lymphocytes % (A) 11 %; MCH 34.8 pg (25.0-35.0); MCHC 34.7 g/dL (31.0-37.0); Macrocytosis Slight; Mean Platelet Volume 6.7; Monocytes # (A) 0.8 k/uL (0-1.0); Monocytes % (A) 7 %; Neutrophils # (A) 8.3 k/uL (1.3-7.7); Neutrophils % (A) 76 %; Platelet Count 227 k/uL (150-450); RBC 2.78 m/uL (4.30-5.90); RDW 14.3 % (11.5-15.5); WBC 10.9 k/uL (3.8-10.6)
[2018-05-29] MEDS: CLOTRIMAZOLE 1% CREAM 15 GM TUBE TOPICAL SCH ×2 (08:39→22:33)
[2018-05-29] MEDS: CARVEDILOL 12.5 MG TAB PO SCH (08:39)
[2018-05-29] MEDS: PANTOPRAZOLE 40 MG TABLET PO SCH (08:39)
[2018-05-29] MEDS: DOCUSATE 100 MG CAP PO SCH ×2 (08:39→22:32)
[2018-05-29] MEDS: LISINOPRIL 2.5 MG TAB PO SCH (08:40)
[2018-05-29] MEDS: guaiFENesin 600 MG TABLET.ER PO SCH ×2 (08:40→22:33)
[2018-05-29] MEDS: FLUCONAZOLE 100 MG TAB PO SCH (08:40)
[2018-05-29] MEDS: FUROSEMIDE 10 MG/ML 4 ML VIAL IV SCH ×2 (08:40→22:33)
[2018-05-29] MEDS: MULTIVITAMINS, THERA 1 EACH TAB PO SCH (08:41)
[2018-05-29] MEDS: POTASSIUM CHLORIDE ER 20 MEQ TAB.ER PO SCH (08:41)
[2018-05-29] MEDS: POLYETHYLENE GLYCOL 3350 17 GM POWD.PACK PO SCH (08:41)
[2018-05-29] MEDS: SUCRALFATE 1 GM TAB PO SCH ×2 (08:41→22:34)
[2018-05-29] MEDS: IPRATROPIUM-ALBUTEROL 3 ML NEB INHALATION SCH ×4 (08:55→19:21)
[2018-05-29] MEDS: SYMBICORT 160-4.5 MCG INHALER INHALATION SCH ×2 (08:55→19:20)
[2018-05-29] MEDS ORDERED: NON-FORMULARY DRUG (Ubidecarenone [Co Q-10] 200 MG) PO SCH (09:00)
[2018-05-29 09:35] LABS: INR 2.3 (<1.2); Prothrombin Time 20.5 sec (9.0-12.0)
[2018-05-29 09:39] LABS: Calcium 8.6 mg/dL (8.4-10.2); Potassium 4.2 mmol/L (3.5-5.1)
[2018-05-29 12:45] LABS: Appearance,Urine Clear (Clear); Bilirubin,Urine Negative (Negative); Blood,Urine Negative (Negative); Color,Urine Yellow; Glucose,Urine (UA) Negative (Negative); Ketones,Urine Negative (Negative); Leukocyte Esterase,Urine Negative (Negative); Nitrite,Urine Negative (Negative); Protein,Urine Negative (Negative); Specific Gravity,Urine 1.013 (1.001-1.035); Urobilinogen,Urine <2.0 mg/dL (<2.0)
--- NOTE | 2018-05-29 21:35 | CONS ---
CONSULTATION CHIEF COMPLAINT: Shortness of breath. Felton is an 82-year-old gentleman with history of cardiomyopathy, congestive heart failure, atrial fibrillation, coronary artery disease, COPD, recurrent right pleural effusion, DVT, was recently discharged home from the hospital, was in the primary care physician's office stating that he is not able to take care of himself. I told him that he needs placement and sent him to the ER. The patient complains of more shortness of breath, weakness and fatigue. At the time of my evaluation, he appears comfortable at rest and is free of symptoms. PAST MEDICAL HISTORY: Significant for chronic diastolic heart failure, hypertension, dyslipidemia, history of right pleural effusion with drainage, history of valvular heart disease, status post aortic valve replacement, coronary artery disease, status post coronary artery bypass grafting. MEDICATIONS: Include Coumadin, trazodone, oxycodone, K-Dur, Mucinex, Diflucan, Protonix, MS Contin, Mevacor, Zestril, Ativan, DuoNeb, Lasix, Coreg, Symbicort. ALLERGIES: There are no known drug allergies. FAMILY HISTORY: Significant for prostate cancer in the family and coronary artery disease and bypass surgery. SOCIAL HISTORY: Significant for smoking in the past. REVIEW OF SYSTEMS: HEENT is unremarkable. Cardiac as described above. Respiratory as described above. GI negative. Genitourinary negative. COOK'S ASSISTANT: Negative. Allergy/Immunology: Negative. SKIN: Negative. MUSCULOSKELETAL: Significant for arthritis. Endocrine negative. Neurological negative. Oncological negative. CONSTITUTIONAL: Negative. DERM: Negative. Hematological negative. Psych negative. EXAM: He is comfortable at rest. Vital signs are stable. There is no jugular venous distention. Chest exam reveals occasional rhonchi bilaterally. Heart exam reveals first and second heart sounds and ejection systolic murmur in the aortic area and a systolic murmur at the apex. Abdomen is soft. Exam of extremities reveal trace edema. Peripheral pulses are felt. LABS: Show a hemoglobin of 8.7. ASSESSMENT: 1. Acute exacerbation of chronic diastolic heart failure. 2. Recurrent right pleural effusions. 3. Status post aortic valve replacement. 4. Chronic atrial fibrillation. 5. Coronary artery disease status post coronary artery bypass grafting. 6. Chronic anemia. PLAN: I will continue the patient on Lipitor, Coreg, IV Lasix, Zestril, and Coumadin. Maintain the INR between 2 and 2.5. We should be able to send him to an assisted care facility. MMPRIMO / DEEPN: [id number] /
[2018-05-29] MEDS: ALPRAZolam 0.25 MG TAB PO PRN (22:33)
[2018-05-29] MEDS: WARFARIN 5 MG TAB PO SCH (22:33)
[2018-05-29] MEDS: ATORVASTATIN 10 MG TAB PO SCH (22:33)
[2018-05-29] MEDS: LEVOFLOXACIN 500MG-D5W PMX 500 MG in DEXTROSE/WATER 1 100ML.BAG IVPB SCH (22:34)
[2018-05-29] MEDS: traZODone HCL 50 MG TAB PO SCH (22:34)
--- NOTE | 2018-05-29 22:57 | PN ---
PROGRESS NOTE DATE OF SERVICE: 05/29/2018 This 82-year-old gentleman admitted with shortness of breath is being closely monitored. The patient also complaining of tiredness and weakness also. No chest pain. No palpitations. No fever. PT/OT has evaluated the patient for ECF rehab also. Further recommendations to follow. EXAM: Alert and oriented x3. The pulse is 66. The blood pressure is 106/54, respiration 20, temperature 98 degrees, pulse ox 98% on room air. HEENT: Conjunctivae normal. Neck: No jugular venous distention. CARDIOVASCULAR: S1, S2 muffled. RESPIRATORY: Breath sounds diminished in the bases. A few scattered rhonchi and crackles. Abdomen is soft, nontender. Nervous system: No focal deficits. LAB STUDIES: WBC 10.9, hemoglobin 10.6, INR 2.3. UA noted. ASSESSMENT: 1. Congestive heart failure acute exacerbation with acute on chronic diastolic dysfunction. 2. Right recurrent pleural effusion status post PleurX drainage. 3. Gait dysfunction, generalized weakness. 4. Increased WBC. 5. Anemia. 6. Increased MCV. 7. Hyponatremia. 8. Atrial fibrillation. 9. Coronary artery disease. 10.Congestive heart failure history. 11.History of chronic obstructive pulmonary disease. 12.History of deep vein thrombosis. 13.History of gastroesophageal reflux disease. 14.Hypertension. 15.Hyperlipidemia. 16.History of myocardial infarction. 17.History of prostate disorder. 18.Chronic hypoxic respiratory failure on home O2 with oxygen 3 L nasal cannula. 19.History of appendectomy. 20.History of cardiac valve replacement. 21.History of coronary artery disease/stent. 22.History of hernia repair. 23.History of aortic valve replacement. 24.Anxiety, depression. 25.History of thoracic and hilar lymphadenopathy status post biopsy recently, benign findings apparently. 26.Dermatitis of the bilateral feet. 27.Constipation. 28.FULL CODE. RECOMMENDATIONS AND DISCUSSION: Recommend to continue current medications, management, symptomatic treatment, PT/OT evaluation. Continue to monitor. Possible ECF rehab. Guarded prognosis. Further recommendations to follow. MMODL / IJN: [id number] /
[2018-05-30] MEDS: TEMAZEPAM 15 MG CAP PO PRN ×2 (02:49→21:29)
[2018-05-30 08:02] LABS: Basophils % (A) 0 %; Eosinophils # (A) 0.4 k/uL (0-0.7); Eosinophils % (A) 4 %; HCT 26.2 % (39.0-53.0); HGB 8.2 gm/dL (13.0-17.5); Hypochromasia Slight; Lymphocytes # (A) 1.3 k/uL (1.0-4.8); Lymphocytes % (A) 13 %; MCH 32.8 pg (25.0-35.0); MCHC 31.5 g/dL (31.0-37.0); MCV 103.9 fL (80.0-100.0); Macrocytosis Slight; Mean Platelet Volume 6.9; Monocytes # (A) 0.6 k/uL (0-1.0); Monocytes % (A) 7 %; Neutrophils # (A) 7.2 k/uL (1.3-7.7); Neutrophils % (A) 74 %; Platelet Count 261 k/uL (150-450); RBC 2.52 m/uL (4.30-5.90); RDW 14.2 % (11.5-15.5); WBC 9.8 k/uL (3.8-10.6)
[2018-05-30 08:09] LABS: Calcium 8.3 mg/dL (8.4-10.2); INR 3.2 (<1.2); Potassium 4.3 mmol/L (3.5-5.1); Prothrombin Time 28.5 sec (9.0-12.0)
[2018-05-30] MEDS: PANTOPRAZOLE 40 MG TABLET PO SCH (08:28)
[2018-05-30] MEDS: DOCUSATE 100 MG CAP PO SCH ×2 (08:28→21:29)
[2018-05-30] MEDS: FLUCONAZOLE 100 MG TAB PO SCH (08:28)
[2018-05-30] MEDS: CARVEDILOL 12.5 MG TAB PO SCH (08:28)
[2018-05-30] MEDS: FUROSEMIDE 10 MG/ML 4 ML VIAL IV SCH ×2 (08:28→21:31)
[2018-05-30] MEDS: guaiFENesin 600 MG TABLET.ER PO SCH ×2 (08:29→21:29)
[2018-05-30] MEDS: LISINOPRIL 2.5 MG TAB PO SCH (08:29)
[2018-05-30] MEDS: POTASSIUM CHLORIDE ER 20 MEQ TAB.ER PO SCH (08:30)
[2018-05-30] MEDS: MULTIVITAMINS, THERA 1 EACH TAB PO SCH (08:30)
[2018-05-30] MEDS: POLYETHYLENE GLYCOL 3350 17 GM POWD.PACK PO SCH (08:30)
[2018-05-30] MEDS: MORPHINE SULFATE ER 60 MG TABLET PO SCH ×2 (08:30→21:29)
[2018-05-30] MEDS: SUCRALFATE 1 GM TAB PO SCH ×2 (08:31→21:29)
--- NOTE | 2018-05-30 08:35 | XR ---
EXAMINATION TYPE: XR chest 1V portable DATE OF EXAM: 05/30/2018 HISTORY: chf. REFERENCE: Previous study dated 05/27/2018. FINDINGS: A unipolar pacemaker projects over the left. There has been a midline sternotomy. The heart is enlarged. There is vascular congestion. There is right basilar airspace disease with a c oncomitant effusion. This has improved slightly from the previous study dated 05/22/2018 IMPRESSION: 1. CARDIOMEGALY. 2. IMPROVED AERATION, RIGHT LUNG BASE.
[2018-05-30] MEDS: IPRATROPIUM-ALBUTEROL 3 ML NEB INHALATION SCH ×4 (08:50→19:08)
[2018-05-30] MEDS: SYMBICORT 160-4.5 MCG INHALER INHALATION SCH ×2 (08:50→19:08)
[2018-05-30] MEDS: CLOTRIMAZOLE 1% CREAM 15 GM TUBE TOPICAL SCH ×2 (10:08→21:49)
--- NOTE | 2018-05-30 14:10 | PN ---
PROGRESS NOTE Felton is an 82-year-old gentleman with history of cardiomyopathy, congestive heart failure, atrial fibrillation, coronary artery disease, status post bypass, COPD, recurrent right pleural effusion, status post aortic valve replacement, who presented to hospital with acute exacerbation of chronic systolic heart failure. He had been treated with intravenous diuretics with significant improvement in his symptoms and the leg edema has improved with it. The patient is currently really looking for placement. Chest x-ray revealed cardiomegaly but no significant pulmonary congestion. Labs showed that the hemoglobin is 8.2, potassium is 4.3, creatinine is 1.1. On exam, comfortable at rest. Vital signs are stable. Chest exam reveals diminished air entry at the right base. Heart exam reveals first and second heart sounds. Systolic murmur at the apex. Abdomen is soft. Exam of extremities reveals bilateral pitting edema, but improved. Foot pulses are intact. Labs are as described above. INR is 3.2. ASSESSMENT: 1. Acute exacerbation of chronic systolic heart failure. 2. Chronic atrial fibrillation. 3. Recurrent right pleural effusions. 4. Status post AVR. 5. Coronary artery disease, status post coronary artery bypass grafting. PLAN: Continue with current medications. He can switch to p.o. Lasix and can have placement arranged. MMODL / IJN: [id number] /
--- NOTE | 2018-05-30 19:22 | PN ---
PROGRESS NOTE DATE OF SERVICE: 05/30/2018. This 82-year-old gentleman admitted with shortness of breath, being closely monitored. No chest pain. No palpitations. No fever. Most recent chest x-ray done this morning showed improved aeration right lung base and cardiomegaly. ECF rehab is also considered. PHYSICAL EXAM: Alert and oriented x3. The pulse is 62, blood pressure 160/52, respiration 18, temperature 97.8, pulse ox 90 percent on room air. HEENT: Conjunctivae normal. Oral mucosa moist. Neck is no jugular venous distention. No carotid bruit. No lymph node enlargement. CARDIOVASCULAR: S1, S2. RESPIRATORY: Breath sounds diminished in the bases. Bilateral scattered rhonchi and crackles. PleurX drainage. ABDOMEN: Soft. NERVOUS SYSTEM: No focal deficits. LABS: WBC 9.2, hemoglobin is 8.2, INR 3.2. Sodium 136. ASSESSMENT: 1. Congestive heart failure acute exacerbation with acute on chronic diastolic dysfunction. 2. Right recurrent pleural effusion, status post PleurX drainage. 3. Gait dysfunction. 4. Generalized weakness. 5. Increased WBC. 6. Anemia. 7. Increased MCV. RECOMMENDATIONS AND DISCUSSION: I recommend to continue current management and symptomatic treatment. Otherwise at this time we will monitor the patient closely. PT, OT evaluation, possible ECF rehab. Guarded prognosis. Further recommendations to follow. MMODL / DEEPN: [id number] /
[2018-05-30] MEDS: LEVOFLOXACIN 500MG-D5W PMX 500 MG in DEXTROSE/WATER 1 100ML.BAG IVPB SCH (21:28)
[2018-05-30] MEDS: traZODone HCL 50 MG TAB PO SCH (21:29)
[2018-05-30] MEDS: ATORVASTATIN 10 MG TAB PO SCH (21:29)
[2018-05-30] MEDS: ALPRAZolam 0.25 MG TAB PO PRN (21:29)
[2018-05-30] MEDS: WARFARIN 5 MG TAB PO SCH (21:29)
[2018-05-31] MEDS: POLYETHYLENE GLYCOL 3350 17 GM POWD.PACK PO SCH (08:18)
[2018-05-31] MEDS: MULTIVITAMINS, THERA 1 EACH TAB PO SCH (08:18)
[2018-05-31] MEDS: POTASSIUM CHLORIDE ER 20 MEQ TAB.ER PO SCH (08:18)
[2018-05-31] MEDS: guaiFENesin 600 MG TABLET.ER PO SCH ×2 (08:19→20:39)
[2018-05-31] MEDS: CARVEDILOL 12.5 MG TAB PO SCH (08:19)
[2018-05-31] MEDS: FLUCONAZOLE 100 MG TAB PO SCH (08:19)
[2018-05-31] MEDS: DOCUSATE 100 MG CAP PO SCH ×2 (08:19→20:38)
[2018-05-31] MEDS: PANTOPRAZOLE 40 MG TABLET PO SCH (08:19)
[2018-05-31] MEDS: LISINOPRIL 2.5 MG TAB PO SCH (08:19)
[2018-05-31] MEDS: MORPHINE SULFATE ER 60 MG TABLET PO SCH ×2 (08:19→20:37)
[2018-05-31] MEDS: FUROSEMIDE 10 MG/ML 4 ML VIAL IV SCH ×2 (08:21→19:37)
[2018-05-31] MEDS: SUCRALFATE 1 GM TAB PO SCH ×2 (08:22→20:39)
[2018-05-31] MEDS: IPRATROPIUM-ALBUTEROL 3 ML NEB INHALATION SCH ×4 (08:31→19:43)
[2018-05-31] MEDS: SYMBICORT 160-4.5 MCG INHALER INHALATION SCH ×2 (08:31→19:43)
[2018-05-31] MEDS: CLOTRIMAZOLE 1% CREAM 15 GM TUBE TOPICAL SCH (10:44)
[2018-05-31 11:17] LABS: Basophils % (A) 0 %; Eosinophils # (A) 0.5 k/uL (0-0.7); Eosinophils % (A) 4 %; HCT 27.5 % (39.0-53.0); HGB 9.1 gm/dL (13.0-17.5); INR 3.4 (<1.2); Lymphocytes # (A) 1.2 k/uL (1.0-4.8); Lymphocytes % (A) 11 %; MCH 33.7 pg (25.0-35.0); MCHC 33.1 g/dL (31.0-37.0); MCV 101.9 fL (80.0-100.0); Macrocytosis Slight; Mean Platelet Volume 6.5; Monocytes # (A) 0.7 k/uL (0-1.0); Monocytes % (A) 6 %; Neutrophils # (A) 8.1 k/uL (1.3-7.7); Neutrophils % (A) 75 %; Platelet Count 266 k/uL (150-450); Prothrombin Time 30.8 sec (9.0-12.0); RDW 14.4 % (11.5-15.5); WBC 10.8 k/uL (3.8-10.6)
[2018-05-31 11:31] LABS: Calcium 8.6 mg/dL (8.4-10.2); Potassium 4.4 mmol/L (3.5-5.1)
--- NOTE | 2018-05-31 13:27 | P.PN ---
Subjective Patient is seen and examined sitting up in the chair in no acute distress. Past medical history significant for coronary artery disease status post bypass grafting, ischemic cardiomyopathy, paroxysmal atrial fibrillation on long-term anticoagulation currently maintaining sinus mechanism, COPD, recurrent right pleural effusion, status post aortic valve replacement, hypertension and dyslipidemia. He is currently maintained on Lasix IV 40 mg twice a day. After being discharged home earlier this month he states he is unable to take care of himself at home secondary to multiple comorbid conditions including exertional dyspnea. He came back to the hospital for placement at a rehab facility. He denies symptoms of chest pain, dizziness or palpitations. He states his breathing continues to be labored with exertion and at rest. Blood pressure 149 /73 heart rate 68 afebrile maintaining oxygen saturation on nasal cannula. Laboratory data reviewed, WBC 10.8, hemoglobin 9.1, platelets 266, INR 3.4, sodium 136, potassium 4.4, creatinine 1.04. Currently maintained on carvedilol 25 mg daily, lisinopril 2.5 mg daily, lovastatin 20 mg daily and Coumadin 5 mg daily. Objective - Vital Signs Vital signs: Vital Signs Temp 98 F 05/31/18 12:41 Pulse 60 05/31/18 12:41 Resp 16 05/31/18 12:41 BP 149/73 05/31/18 12:41 Pulse Ox 100 05/31/18 12:41 Intake & Output 05/30/18 05/31/18 05/31/18 18:59 06:59 18:59 Intake Total 240 Output Total 150 Balance -150 240 Weight 78.5 kg Intake: Oral 240 Output: Urine 150 Other: Voiding Method Urinal # Voids 2 - Exam GENERAL: Well-appearing, well-nourished and in no acute distress. NECK: Supple without JVD or thyromegaly. LUNGS: Breath sounds clear to auscultation bilaterally. Respiration equal and unlabored. No wheezes, rales or rhonchi. Diminished bilaterally. HEART: Regular rate and rhythm with systolic ejection murmur at the base, no rubs or gallops. S1 and S2 heard. EXTREMITIES: Normal range of motion, bilateral lower extremity 1+ pitting edema. No clubbing or cyanosis. Peripheral pulses intact. - Labs CBC & Chem 7: 05/31/18 10:59 05/31/18 10:59 Labs: Abnormal Lab Results - Last 24 Hours (Table) 05/31/18 05/31/18 05/31/18 Range/Units 10:59 10:59 10:59 WBC 10.8 H (3.8-10.6) k/uL RBC 2.70 L (4.30-5.90) m/uL Hgb 9.1 L (13.0-17.5) gm/dL Hct 27.5 L (39.0-53.0) % MCV 101.9 H (80.0-100.0) fL Neutrophils # 8.1 H (1.3-7.7) k/uL PT 30.8 H (9.0-12.0) sec INR 3.4 H (<1.2) Sodium 136 L (137-145) mmol/L Chloride 96 L (98-107) mmol/L BUN 27 H (9-20) mg/dL Glucose 103 H (74-99) mg/dL Microbiology - Last 24 Hours (Table) 05/29/18 12:30 Gram Stain - Final Sputum Sputum Culture - Final 05/29/18 08:55 Urine Culture - Final Urine,Clean Catch 05/28/18 15:25 Blood Culture - Preliminary Blood No Growth after 48 hours Assessment and Plan Assessment: ASSESSMENT Acute on chronic systolic heart failure Paroxysmal atrial fibrillation on long-term anticoagulation Recurrent right pleural effusion Status post aortic valve replacement Coronary artery disease status post bypass grafting PLAN Continue current medications. Upon discharge he can be transitioned to oral diuretics in the form of Lasix 40 mg twice a day. Ongoing medical management. Nurse Practitioner note has been reviewed, I agree with a documented findings and plan of care. Patient was seen and examined.
[2018-05-31 14:19] VITALS: BMI 25.5
--- NOTE | 2018-05-31 16:55 | PN ---
PROGRESS NOTE DATE OF SERVICE: 05/31/2018 This 82-year-old gentleman who was admitted with shortness of breath had possible CHF, acute exacerbation. Patient had a pleural effusion also. The patient has periodic PleurX drainage. The most recent chest x-ray done yesterday showed significant improvement. At this time PT/OT is evaluating the patient. The most recent CT scan done on 04/01/2018 showed similar findings. The previous chest x-ray done a few days ago showed similar findings as well. PHYSICAL EXAMINATION: Alert and oriented x3. Pulse 60, blood pressure 149/73, respiration 16, temperature 98 degrees, pulse ox 100% on 2 L. HEENT: Conjunctivae normal. Oral mucosa moist. NECK: No jugular venous distention. No carotid bruit. No lymph node enlargement. CARDIOVASCULAR SYSTEM: S1, S2 muffled. RESPIRATORY SYSTEM: Breath sounds diminished at the bases. Bilateral scattered rhonchi and crackles. ABDOMEN: Soft and non-tender. No mass palpable. LEGS: No edema. No swelling. NERVOUS SYSTEM: Higher functions as mentioned earlier. Moves all 4 limbs. No focal motor or sensory deficit. LYMPHATIC: No lymph node palpable in neck or axillae. SKIN: No ulcer, rash, bleeding. LABS: WBC 10.8, hemoglobin 9.1. INR 3.4. Sodium 136. ASSESSMENT: 1. Congestive heart failure, acute exacerbation, with acute on chronic diastolic dysfunction. 2. Right recurrent pleural effusion, status post PleurX drainage. 3. Right-sided lower lobe atelectasis. 4. Gait dysfunction. 5. Generalized weakness. 6. Increased white count. 7. Anemia. 8. Increased mean corpuscular volume. RECOMMENDATIONS AND DISCUSSION: I recommend to continue current medications, continue with monitoring, symptomatic treatment. Otherwise, repeat labs. I would hold the Coumadin if INR is more than 3. Prognosis guarded. Further recommendations to follow. MMODL / IJN: [id number] /
[2018-05-31] MEDS: LEVOFLOXACIN 500MG-D5W PMX 500 MG in DEXTROSE/WATER 1 100ML.BAG IVPB SCH (19:37)
[2018-05-31] MEDS: traZODone HCL 50 MG TAB PO SCH (20:38)
[2018-05-31] MEDS: ATORVASTATIN 10 MG TAB PO SCH (20:38)
[2018-05-31] MEDS: TEMAZEPAM 15 MG CAP PO PRN (22:37)
[2018-06-01] MEDS: CLOTRIMAZOLE 1% CREAM 15 GM TUBE TOPICAL SCH ×3 (00:23→21:22)
[2018-06-01] MEDS: HYDROcodone/APAP 5-325MG 1 EACH TAB PO PRN ×2 (03:44→19:40)
[2018-06-01] MEDS: IPRATROPIUM-ALBUTEROL 3 ML NEB INHALATION SCH ×4 (08:38→19:56)
[2018-06-01] MEDS: SYMBICORT 160-4.5 MCG INHALER INHALATION SCH ×2 (08:39→19:55)
[2018-06-01] MEDS: SUCRALFATE 1 GM TAB PO SCH ×2 (08:42→21:22)
[2018-06-01] MEDS: DOCUSATE 100 MG CAP PO SCH ×2 (08:42→22:16)
[2018-06-01] MEDS: LISINOPRIL 2.5 MG TAB PO SCH ×2 (08:42→09:04)
[2018-06-01] MEDS: CARVEDILOL 12.5 MG TAB PO SCH ×2 (08:42→17:24)
[2018-06-01] MEDS: FUROSEMIDE 10 MG/ML 4 ML VIAL IV SCH (08:42)
[2018-06-01] MEDS: guaiFENesin 600 MG TABLET.ER PO SCH ×2 (08:42→21:21)
[2018-06-01] MEDS: POLYETHYLENE GLYCOL 3350 17 GM POWD.PACK PO SCH (08:42)
[2018-06-01] MEDS: POTASSIUM CHLORIDE ER 20 MEQ TAB.ER PO SCH (08:42)
[2018-06-01] MEDS: MULTIVITAMINS, THERA 1 EACH TAB PO SCH (08:42)
[2018-06-01] MEDS: PANTOPRAZOLE 40 MG TABLET PO SCH (08:43)
[2018-06-01] MEDS: MORPHINE SULFATE ER 60 MG TABLET PO SCH ×2 (08:45→21:21)
[2018-06-01 11:08] LABS: Basophils # (A) 0.1 k/uL (0-0.2); Basophils % (A) 0 %; Eosinophils # (A) 0.6 k/uL (0-0.7); Eosinophils % (A) 4 %; HCT 25.3 % (39.0-53.0); HGB 8.3 gm/dL (13.0-17.5); Lymphocytes # (A) 1.7 k/uL (1.0-4.8); Lymphocytes % (A) 12 %; Macrocytosis Slight; Mean Platelet Volume 7.2; Monocytes # (A) 0.7 k/uL (0-1.0); Monocytes % (A) 5 %; Neutrophils # (A) 10.3 k/uL (1.3-7.7); Neutrophils % (A) 76 %; Platelet Count 269 k/uL (150-450); RBC 2.53 m/uL (4.30-5.90); RDW 14.2 % (11.5-15.5); WBC 13.6 k/uL (3.8-10.6)
--- NOTE | 2018-06-01 11:12 | P.PN ---
Subjective Patient is seen and examined sitting up in the chair in no acute distress. Past medical history significant for coronary artery disease status post bypass grafting, ischemic cardiomyopathy, paroxysmal atrial fibrillation on long-term anticoagulation currently maintaining sinus mechanism, COPD, recurrent right pleural effusion, status post aortic valve replacement, hypertension and dyslipidemia. He is currently maintained on Lasix IV 40 mg twice a day. After being discharged home earlier this month he states he is unable to take care of himself at home secondary to multiple comorbid conditions including exertional dyspnea. He came back to the hospital for placement at a rehab facility. He denies symptoms of chest pain, dizziness or palpitations. He states his breathing continues to be labored with exertion and at rest but is improving since admission. Blood pressure 118/56 heart rate 88 afebrile maintaining next and saturation on nasal cannula. Laboratory data reviewed, WBC 10.8, hemoglobin 9.1, platelets 266, INR 3.4, sodium 136, potassium 4.4, creatinine 1.04. Currently maintained on lasix 40 mg IV BID, coreg 25 mg BID, coumadin 5 mg daily and lisinopril 2.5 mg daily. Plan: Continue IV lasix at 40 mg BID for another 24-48 hours. Decrease coreg to 12.5mg BID. Change lisiopril to 5 mg at HS. Hold coumadin tonight. Increase activity and work with physical therapy to build strength. We will continue to follow. Objective - Vital Signs Vital signs: Vital Signs Temp 97.6 F 06/01/18 05:00 Pulse 80 06/01/18 08:48 Resp 16 06/01/18 05:00 BP 118/56 06/01/18 08:51 Pulse Ox 98 06/01/18 05:00 Intake & Output 05/31/18 06/01/18 06/01/18 18:59 06:59 18:59 Weight 78.5 kg 80 kg Other: Voiding Method Urinal Urinal # Voids 3 2 - Exam GENERAL: Well-appearing, well-nourished and in no acute distress. NECK: Supple without JVD or thyromegaly. LUNGS: Breath sounds clear to auscultation bilaterally. Respiration equal and unlabored. No wheezes, rales or rhonchi. Diminished bilaterally. HEART: Regular rate and rhythm with systolic ejection murmur at the base, no rubs or gallops. S1 and S2 heard. EXTREMITIES: Normal range of motion, bilateral lower extremity 1+ pitting edema. No clubbing or cyanosis. Peripheral pulses intact. - Labs CBC & Chem 7: 05/31/18 10:59 10 10:59 Labs: Abnormal Lab Results - Last 24 Hours (Table) 05/31/18 05/31/18 05/31/18 Range/Units 10:59 10:59 10:59 WBC 10.8 H (3.8-10.6) k/uL RBC 2.70 L (4.30-5.90) m/uL Hgb 9.1 L (13.0-17.5) gm/dL Hct 27.5 L (39.0-53.0) % MCV 101.9 H (80.0-100.0) fL Neutrophils # 8.1 H (1.3-7.7) k/uL PT 30.8 H (9.0-12.0) sec INR 3.4 H (<1.2) Sodium 136 L (137-145) mmol/L Chloride 96 L (98-107) mmol/L BUN 27 H (9-20) mg/dL Glucose 103 H (74-99) mg/dL Microbiology - Last 24 Hours (Table) 05/28/18 15:25 Blood Culture - Preliminary Blood No Growth after 72 hours 05/29/18 12:30 Gram Stain - Final Sputum Sputum Culture - Final Assessment and Plan Assessment: ASSESSMENT Acute on chronic systolic heart failure Paroxysmal atrial fibrillation on long-term anticoagulation Supratherapeutic INR> Recurrent right pleural effusion Status post aortic valve replacement Coronary artery disease status post bypass grafting PLAN Continue IV lasix at 40 mg BID for another 24-48 hours. Decrease coreg to 12.5mg BID. Change lisiopril to 5 mg at HS. Hold coumadin tonight. Increase activity and work with physical therapy to build strength. We will continue to follow. Nurse Practitioner note has been reviewed, I agree with a documented findings and plan of care. Patient was seen and examined.
[2018-06-01 11:21] LABS: INR 3.2 (<1.2); Prothrombin Time 28.2 sec (9.0-12.0)
[2018-06-01 11:25] LABS: Calcium 8.9 mg/dL (8.4-10.2); Potassium 5.1 mmol/L (3.5-5.1)
--- NOTE | 2018-06-01 14:42 | PN ---
PROGRESS NOTE DATE OF SERVICE: 06/01/2018 This is an 82-year-old gentleman who was admitted with CHF exacerbation, is being closely monitored. Possible ECF rehab is being suggested. No chest pain. No palpitations. No fever. PHYSICAL EXAM: Alert and oriented x3. Pulse is 60, blood pressure 130/60, respirations 16, temperature 97.4, pulse ox 100% on 2 L. HEENT: Oral mucosa moist. Neck is no jugular venous distension, no carotid bruit, no lymph node enlargement. CARDIOVASCULAR SYSTEM: S1, S2, muffled. RESPIRATORY: Breath sounds diminished at the bases, a few scattered rhonchi. No crackles. ABDOMEN: Soft, nontender. LEGS: No edema, no swelling. NERVOUS SYSTEM: No focal deficits. LABS: WBC is 13.6, hemoglobin is 8.3, INR 3.2. ASSESSMENT: 1. Congestive heart failure acute exacerbation with acute on chronic diastolic dysfunction. 2. Right recurrent pleural effusion, status post PleurX drainage with a possible right- sided lower lobe atelectasis. 3. Gait dysfunction, generalized weakness. 4. WBC. 5. Anemia. 6. MCV. RECOMMENDATION: Recommend to continue current management. Continue symptomatic treatment. Otherwise, at this time I recommend hold the Coumadin and I would also recommend monitor closely. PT, OT evaluation, possible ECF rehab. Change Lasix to p.o. Further recommendations to follow. . YESICA / DELFINO: [id number] /
[2018-06-01] MEDS: FUROSEMIDE 40 MG TAB PO SCH (17:24)
[2018-06-01] MEDS: LEVOFLOXACIN 500 MG TAB PO SCH (19:40)
[2018-06-01] MEDS: ATORVASTATIN 10 MG TAB PO SCH (21:22)
[2018-06-01] MEDS: traZODone HCL 100 MG TAB PO SCH (21:22)
[2018-06-01] MEDS: LISINOPRIL 5 MG TAB PO SCH (21:22)
[2018-06-02] MEDS: POLYETHYLENE GLYCOL 3350 17 GM POWD.PACK PO SCH (07:44)
[2018-06-02] MEDS: POTASSIUM CHLORIDE ER 20 MEQ TAB.ER PO SCH (07:45)
[2018-06-02] MEDS: FUROSEMIDE 40 MG TAB PO SCH ×2 (07:45→17:13)
[2018-06-02] MEDS: DOCUSATE 100 MG CAP PO SCH ×2 (07:45→20:23)
[2018-06-02] MEDS: guaiFENesin 600 MG TABLET.ER PO SCH ×2 (07:46→20:23)
[2018-06-02] MEDS: MULTIVITAMINS, THERA 1 EACH TAB PO SCH (07:46)
[2018-06-02] MEDS: SUCRALFATE 1 GM TAB PO SCH ×2 (07:46→20:23)
[2018-06-02] MEDS: CARVEDILOL 12.5 MG TAB PO SCH ×2 (07:46→17:14)
[2018-06-02] MEDS: CLOTRIMAZOLE 1% CREAM 15 GM TUBE TOPICAL SCH ×2 (07:47→20:24)
[2018-06-02] MEDS: MORPHINE SULFATE ER 60 MG TABLET PO SCH ×2 (07:47→20:23)
[2018-06-02] MEDS: PANTOPRAZOLE 40 MG TABLET PO SCH (07:47)
[2018-06-02] MEDS: IPRATROPIUM-ALBUTEROL 3 ML NEB INHALATION SCH ×4 (08:00→21:11)
[2018-06-02] MEDS: SYMBICORT 160-4.5 MCG INHALER INHALATION SCH ×2 (08:00→21:11)
[2018-06-02 09:11] LABS: Basophils % (A) 0 %; Eosinophils # (A) 0.5 k/uL (0-0.7); Eosinophils % (A) 3 %; HCT 27.4 % (39.0-53.0); HGB 8.9 gm/dL (13.0-17.5); Lymphocytes # (A) 1.7 k/uL (1.0-4.8); Lymphocytes % (A) 11 %; MCH 33.3 pg (25.0-35.0); MCHC 32.4 g/dL (31.0-37.0); MCV 102.8 fL (80.0-100.0); Macrocytosis Slight; Mean Platelet Volume 6.7; Monocytes # (A) 0.8 k/uL (0-1.0); Monocytes % (A) 5 %; Neutrophils % (A) 79 %; Platelet Count 311 k/uL (150-450); RBC 2.67 m/uL (4.30-5.90); RDW 14.4 % (11.5-15.5); WBC 15.2 k/uL (3.8-10.6)
[2018-06-02 09:17] LABS: INR 2.6 (<1.2); Prothrombin Time 23.2 sec (9.0-12.0)
[2018-06-02 09:48] LABS: Calcium 9.1 mg/dL (8.4-10.2); Potassium 5.5 mmol/L (3.5-5.1)
[2018-06-02] MEDS ORDERED: HYDROmorphone 2 MG TAB PO PRN (11:43)
[2018-06-02] MEDS: PIPERACILLIN-TAZOBACTAM 3.375 GM in DEXTROSE/WATER 1 50ML.BAG IVPB SCH ×2 (12:30→20:10)
[2018-06-02] MEDS: ALPRAZolam 0.25 MG TAB PO PRN (13:02)
--- NOTE | 2018-06-02 14:08 | CT ---
EXAMINATION TYPE: CT ChestAbdPelvis wo con DATE OF EXAM: 06/02/2018 COMPARISON: CT chest 04/01/2018 HISTORY: Elevated WBC, pneumonia, trouble breathing CT DLP: 798.9 mGycm. Automated Exposure Control for Dose Reduction was Utilized. TECHNIQUE: CT scan of the thorax, abdomen and pelvis is performed without IV contrast. FINDINGS: Lack of contrast could compromise sensitivity. LUNGS: The lungs are grossly clear, there is no concerning parenchymal mass or nodule identified. Int erstitium is increased. Calcified granulomas are present at the lung bases. There is motion on the ex am. Mild emphysematous changes are present. Pleurx catheter is present on the right, there is a small pleural effusion and associated compressive atelectasis. There is no pleural effusion or pneumothor ax seen. The tracheobronchial tree is patent. MEDIASTINUM: Mediastinal adenopathy again noted. Pulmonary artery is prominent as on prior. No perica rdial effusion is seen. The heart remains enlarged. There are extensive coronary artery calcificatio ns. Lead present within the right ventricle. OTHER: No additional significant abnormality is seen. LIVER/GB: Patient is post cholecystectomy. Low dense liver focus is stable and may represent a cyst. PANCREAS: No significant abnormality is seen. SPLEEN: No significant abnormality is seen. ADRENALS: No significant abnormality is seen. KIDNEYS: Stable, there is a cortical cyst associated with the right kidney as on prior. BOWEL: Large amount of retained fecal debris present throughout the distribution of the colon. Contra st has not coursed beyond the proximal small bowel. GENITAL ORGANS: No gross abnormality seen. LYMPH NODES: No greater than 1cm abdominal or pelvic lymph nodes are appreciated. OSSEOUS STRUCTURES: No significant interval change is seen. Patient is post median sternotomy. Degene rative disc changes in the visualized spine. OTHER: Multiple surgical clips in the pelvis likely due to post prostatectomy change IMPRESSION: Findings in the chest are stable, there is interstitial lung disease, cardiomegaly, coron angelita artery disease and pleural effusion. Indwelling Pleurx catheter. Correlate for pulmonary artery h ypertension. Mediastinal adenopathy. Noncontrast exam. Correlate for fecal stasis. Limitations as rafiq cribed
--- NOTE | 2018-06-02 15:14 | P.PN ---
Subjective Patient is seen and examined sitting up in the chair in no acute distress. Past medical history significant for coronary artery disease status post bypass grafting, ischemic cardiomyopathy, paroxysmal atrial fibrillation on long-term anticoagulation currently maintaining sinus mechanism, COPD, recurrent right pleural effusion, status post aortic valve replacement, hypertension and dyslipidemia. He has been transitioned to PO lasix per primary care team, 40 mg BID. He is complaining of lower abdominal pain with constipation and improving shortness of breath. Although still dyspneic seems to be improving. He denies chest pain, increased shortness of breath, dizziness or palpitations. CT abd/pel/chest indicates stable chest findings with fecal stasis. Laboratory data reviewed, WBC 15.2, hemoglobin 8.9, platelets 311, INR 2.6, sodium 135, potassium 5.5, creatinine 1.56. Blood heart rate 62 afebrile maintaining oxygen saturation on nasal cannula 2 L. Objective - Vital Signs Vital signs: Vital Signs Temp 97.8 F 06/02/18 11:50 Pulse 62 06/02/18 11:50 Resp 18 06/02/18 11:50 BP 105/58 06/02/18 11:50 Pulse Ox 99 06/02/18 11:50 Intake & Output 06/01/18 06/02/18 06/02/18 18:59 06:59 18:59 Intake Total 540 50 Output Total 705 Balance -705 540 50 Weight 79.2 kg Intake: Intake, IV Titration 50 Amount Piperacillin-Tazobactam 3 50 .375 gm In Dextrose/Water 1 50ml.bag @ 12.5 mls/hr IVPB [facility] Rx#: [id number] Oral 540 Output: Chest Tube Drainage 5 Pleural Catheter 5 Urine 700 Other: Voiding Method Urinal Urinal Urinal # Voids 1 3 - Exam GENERAL: Well-appearing, well-nourished and in no acute distress. NECK: Supple withmild JVD or thyromegaly. LUNGS: Breath sounds clear to auscultation bilaterally. Respiration equal and unlabored. No wheezes, rales or rhonchi. Diminished bilaterally. HEART: Regular rate and rhythm with systolic ejection murmur at the base, no rubs or gallops. S1 and S2 heard. EXTREMITIES: Normal range of motion, bilateral lower extremity 1+ pitting edema. No clubbing or cyanosis. Peripheral pulses intact. - Labs CBC & Chem 7: 06/02/18 08:18 06/02/18 08:18 Labs: Abnormal Lab Results - Last 24 Hours (Table) 06/02/18 06/02/18 06/02/18 Range/Units 08:18 08:18 08:18 WBC 15.2 H (3.8-10.6) k/uL RBC 2.67 L (4.30-5.90) m/uL Hgb 8.9 L (13.0-17.5) gm/dL Hct 27.4 L (39.0-53.0) % MCV 102.8 H (80.0-100.0) fL Neutrophils # 12.0 H (1.3-7.7) k/uL PT 23.2 H (9.0-12.0) sec INR 2.6 H (<1.2) Sodium 135 L (137-145) mmol/L Potassium 5.5 H (3.5-5.1) mmol/L Chloride 96 L (98-107) mmol/L BUN 39 H (9-20) mg/dL Creatinine 1.56 H (0.66-1.25) mg/dL Glucose 129 H (74-99) mg/dL Microbiology - Last 24 Hours (Table) 05/28/18 15:25 Blood Culture - Preliminary Blood No Growth after 96 hours Assessment and Plan Assessment: ASSESSMENT Acute on chronic systolic heart failure Paroxysmal atrial fibrillation on long-term anticoagulation Supratherapeutic INR, resolved Recurrent right pleural effusion Status post aortic valve replacement Coronary artery disease status post bypass grafting Acute kidney injury PLAN Give coumdain 5 mg today, repeat INR in the morning. Work with physical therapy to build strength. We will continue to follow. Nurse Practitioner note has been reviewed, I agree with a documented findings and plan of care. Patient was seen and examined.
[2018-06-02] MEDS: LORazepam 0.5 MG TAB PO PRN (17:13)
--- NOTE | 2018-06-02 17:16 | PN ---
PROGRESS NOTE DATE OF SERVICE: 06/02/2018 This 82-year-old gentleman who was admitted CHF, acute exacerbation, also had acute on chronic systolic dysfunction. Patient is not feeling better today. The patient also had elevated white count. Antibiotics have been changed. Cardiology is following the patient closely. CT scan of the chest, abdomen and pelvis done today showed findings in the chest stable, indwelling PleurX catheter and pulmonary hypertension, mediastinal adenopathy. The patient is being closely monitored. Currently the patient is on IV Zosyn, which was changed today. Past medical history reviewed. REVIEW OF SYSTEMS: CARDIOVASCULAR SYSTEM: No angina, palpitations. RESPIRATORY SYSTEM: Occasional cough. GI: As mentioned earlier. : No dysuria or retention. NERVOUS SYSTEM: No numbness, weakness. CURRENT MEDICATIONS: Reviewed. They are: 1. Tylenol 500 mg q.6 p.r.n. 2. Rushmore 5 mg q.6 p.r.n. 3. DuoNeb q.i.d. and p.r.n. 4. Xanax 0.25 t.i.d. 5. Lipitor 10 mg at bedtime. 6. Symbicort 160/4.5 b.i.d. 7. Coreg 12.5 mg b.i.d. 8. Lotrimin cream. 9. Lasix 40 mg b.i.d. 10.Mucinex 600 mg b.i.d. 11.Levaquin 500 mg daily. 12.Zestril 5 mg at bedtime. 13.Ativan 0.5 mg q.i.d. 14.MS Contin 60 mg p.o. b.i.d. 15.Multivitamins 1 p.o. daily. 16.Narcan. 17.Oxyir 15 mg p.o. t.i.d. 18.Protonix. 19.Zosyn 3.375 IV q.8. 20.K-Dur 20 mEq p.o. daily. 21.Phenergan. 22.Carafate. 23.Restoril 15 mg at bedtime p.r.n. 24.Desyrel 100 mg at bedtime. 25.Coumadin 5 mg once. PHYSICAL EXAMINATION: Patient is alert, oriented x3. Pulse 62, blood pressure 105/58, respiration 18, temperature 97.8, pulse ox 99% on 2 L. HEENT: Conjunctivae normal. Oral mucosa moist. NECK: No jugular venous distention. No carotid bruit. No lymph node enlargement. CARDIOVASCULAR SYSTEM: S1, S2 muffled. RESPIRATORY SYSTEM: Breath sounds diminished at the bases. A few scattered rhonchi and crackles. ABDOMEN: Soft, non-tender. LEGS: No edema. No swelling. NERVOUS SYSTEM: Diffusely weak. LABS: WBC 15.2, hemoglobin 8.9, INR 2.6. Sodium 134, potassium 5.5. ASSESSMENT: 1. Congestive heart failure, acute exacerbation, with acute on chronic diastolic dysfunction. 2. Right recurrent pleural effusion with PleurX drainage with possible right- sided lower lobe atelectasis pneumonia. 3. Gait dysfunction. 4. Generalized weakness. 5. Increased white count. 6. Anemia. 7. Increased mean corpuscular volume. 8. Chronic obstructive pulmonary disease. 9. History of deep vein thrombosis. 10.Hypertension. 11.Hyperlipidemia. 12.Myocardial infarction. 13.Appendectomy. 14.History of cardiac valve replacement. 15.Coronary artery disease, stent. RECOMMENDATIONS AND DISCUSSION: In this 82-year-old gentleman who presented with multiple complex medical issues , we will monitor the patient closely, continue the current medications, continue with symptomatic treatment. Change the antibiotics also. Infectious disease evaluation. Patient is not feeling well today. White count is also increasing. The prognosis is guarded. CT scan was done today which did not show any new abnormalities, but overall prognosis is guarded. Further recommendations to follow. MMODL / IJN: [id number] / MTDD
[2018-06-02] MEDS ORDERED: WARFARIN 5 MG TAB PO ONE (18:00)
[2018-06-02] MEDS: LEVOFLOXACIN 500 MG TAB PO SCH (20:10)
[2018-06-02] MEDS: traZODone HCL 100 MG TAB PO SCH (20:23)
[2018-06-02] MEDS: LISINOPRIL 5 MG TAB PO SCH (20:23)
[2018-06-02] MEDS: ATORVASTATIN 10 MG TAB PO SCH (20:23)
[2018-06-03] MEDS: HYDROcodone/APAP 5-325MG 1 EACH TAB PO PRN ×2 (03:06→23:05)
[2018-06-03] MEDS: PIPERACILLIN-TAZOBACTAM 3.375 GM in DEXTROSE/WATER 1 50ML.BAG IVPB SCH ×3 (03:06→20:16)
--- NOTE | 2018-06-03 05:55 | CONS ---
CONSULTATION DATE OF SERVICE: 06/02/2018 REASON FOR CONSULTATION: Leukocytosis and possible pneumonia. HISTORY OF PRESENT ILLNESS: The patient is an 82-year-old male who presented to the [facility] ER on 05/28/2018 with chief complaints of increasing shortness of breath and cough that has been going on for a few days prior to presentation to hospital. The patient has been coughing up some brown sputum, but no hemoptysis. Patient denies having significant chest pain. Patient denies having any nausea, no vomiting. No URI symptoms. No abdominal pain or any diarrhea. With these symptoms, the patient has been evaluated by the ER physician. The patient did have a chest x-ray on 05/27 that was read as congestive heart failure with right pleural effusion, moderate cardiomegaly and no change. Patient has been afebrile during this hospital stay. The patient did have a mildly elevated white count of 11.3, this came down to 9.8 on 05/30. However, the patient's white count has been on the upward trend with 10.8 on 05/31, 13.6 yesterday and 15.2 today with concern for possible infection and pneumonia. The patient has been started on Zosyn today. A CT of chest, abdomen and pelvis was ordered and Infectious Disease was consulted for further recommendation regarding antibiotic therapy. REVIEW OF SYSTEMS: CONSTITUTIONAL: Positive for weakness, but no high-grade fever. EYES: No complaint. ENT: No complaint. RESPIRATORY: As per HPI. CARDIOVASCULAR: No complaint. GENITOURINARY: No complaint. GASTROINTESTINAL: No complaint. MUSCULOSKELETAL: No complaint. INTEGUMENTARY: No complaint. PSYCHOLOGICAL: No complaint. ENDOCRINE: No complaint. NEUROLOGIC: No complaint. PAST MEDICAL HISTORY: His past medical history is significant for congestive heart failure, atrial fibrillation, coronary artery disease, DVT, gastroesophageal reflux disease, hyperlipidemia, hypertension, [place], pneumonia, prostate disorder. PAST SURGICAL HISTORY: Appendectomy, cardiac valve replacement, cholecystectomy, heart catheterization with stent, hernia repair, pacemaker placement and prostate surgery. SOCIAL HISTORY: Remote history of smoking. No drinking or any drug use. FAMILY HISTORY: Mother with history of cancer. Father history of prostate cancer. ALLERGIES: No known drug allergies. MEDICATIONS: Medications currently include the patient is on Tylenol, [place], DuoNeb, Xanax, Lipitor, Symbicort, Coreg, clotrimazole cream, Colace, Lasix, Mucinex, Dilaudid, Zestril, Ativan, MS Contin, Narcan, Zosyn, MiraLAX, Phenergan, Carafate, Restoril and trazodone. PHYSICAL EXAMINATION: On examination, blood pressure is 111/54 with a pulse of 60, temperature 98. He is 96% on 3 L nasal cannula. General description is an elderly male up in the chair in no distress. No tachypnea or accessory muscle of respiration use. HEENT examination shows pallor, no scleral icterus. Oral mucous membrane is dry. NECK: Trachea central. No thyromegaly. LUNGS: Unlabored breathing with decreased breath sounds in the bases, no wheeze. HEART: S1, S2. Regular rate and rhythm. ABDOMEN: Soft, no tenderness. No guarding or rigidity. EXTREMITIES: No edema of the feet. SKIN EXAMINATION: No rash or mass palpable. NEUROLOGICAL: Patient is awake, alert, oriented x3. Mood and affect normal. LABS: Hemoglobin 8.9, white count 15.2 with a BUN of 39, creatinine is 1.56. The patient did have a UA on 05/29 that has been negative. Sputum has been usual respiratory ameya. Urine culture negative. Blood culture has been negative. The patient did have a CT of the chest, abdomen, pelvis which did not show any evidence of pneumonia or parenchymal mass. The PleurX catheter was present pleural effusion and no abnormality in intraabdominal. DIAGNOSTIC IMPRESSION AND PLAN: Patient admitted to the hospital with generalized weakness on 05/28/2018, now seemed to have gradually worsening of his white count with concern for possible pneumonia. The patient did have symptoms of shortness of breath and he did have some cough and bringing up some brown sputum; however, sputum culture has been negative for any resistant pathogen. With reason for his elevated white count, possibly factitious as the patient did have evidence of elevated BUN and creatinine over the last few days, possibility of over diuresis or possible oropharyngeal candidiasis. Clinical suspicion was low for pneumonia as the CT did not show any consolidation and CT of abdomen and pelvis was negative for any inflammation of abdominal , underlying urinary tract infection needs to be ruled out as well. PLAN: 1. We will check a UA and culture. 2. We will add nystatin swish and swallow. 3. Keep the patient on Zosyn that had been started today while waiting for his culture to finalize and condition to stabilize. 4. We will follow up on clinical condition and culture to further adjust medication if needed. Thank you for this consultation. Will follow this patient along with you. YESICA / DELFINO: [id number] /
[2018-06-03 05:56] LABS: Appearance,Urine Clear (Clear); Bilirubin,Urine Negative (Negative); Blood,Urine Negative (Negative); Color,Urine Light Yellow; Glucose,Urine (UA) Negative (Negative); Ketones,Urine Negative (Negative); Leukocyte Esterase,Urine Negative (Negative); Nitrite,Urine Negative (Negative); Protein,Urine Negative (Negative); Specific Gravity,Urine 1.009 (1.001-1.035); Urobilinogen,Urine <2.0 mg/dL (<2.0)
[2018-06-03] MEDS: SYMBICORT 160-4.5 MCG INHALER INHALATION SCH ×2 (08:00→19:54)
[2018-06-03] MEDS: IPRATROPIUM-ALBUTEROL 3 ML NEB INHALATION SCH ×4 (08:00→19:54)
[2018-06-03] MEDS: NYSTATIN 100,000 UNIT/ML SUSP 500,000 UNIT/5 ML CUP PO SCH ×4 (08:45→20:19)
[2018-06-03] MEDS: POLYETHYLENE GLYCOL 3350 17 GM POWD.PACK PO SCH (08:45)
[2018-06-03] MEDS: PANTOPRAZOLE 40 MG TABLET PO SCH (08:45)
[2018-06-03] MEDS: DOCUSATE 100 MG CAP PO SCH ×2 (08:45→20:17)
[2018-06-03] MEDS: guaiFENesin 600 MG TABLET.ER PO SCH ×2 (08:46→20:17)
[2018-06-03] MEDS: MULTIVITAMINS, THERA 1 EACH TAB PO SCH (08:46)
[2018-06-03] MEDS: FUROSEMIDE 40 MG TAB PO SCH (08:46)
[2018-06-03] MEDS: CLOTRIMAZOLE 1% CREAM 15 GM TUBE TOPICAL SCH ×2 (08:46→20:17)
[2018-06-03] MEDS: SUCRALFATE 1 GM TAB PO SCH ×2 (08:46→20:18)
[2018-06-03] MEDS: MORPHINE SULFATE ER 60 MG TABLET PO SCH ×2 (08:47→20:18)
[2018-06-03] MEDS: CARVEDILOL 12.5 MG TAB PO SCH ×2 (08:47→17:02)
[2018-06-03 08:51] LABS: Basophils % (A) 0 %; Eosinophils # (A) 0.4 k/uL (0-0.7); Eosinophils % (A) 3 %; Lymphocytes # (A) 1.2 k/uL (1.0-4.8); Lymphocytes % (A) 10 %; MCH 33.2 pg (25.0-35.0); MCHC 33.1 g/dL (31.0-37.0); MCV 100.3 fL (80.0-100.0); Macrocytosis Slight; Mean Platelet Volume 6.7; Monocytes # (A) 0.8 k/uL (0-1.0); Monocytes % (A) 7 %; Neutrophils # (A) 9.1 k/uL (1.3-7.7); Neutrophils % (A) 78 %; Platelet Count 237 k/uL (150-450); RBC 2.19 m/uL (4.30-5.90); WBC 11.7 k/uL (3.8-10.6)
[2018-06-03 08:58] LABS: INR 2.2 (<1.2); Prothrombin Time 20.1 sec (9.0-12.0)
[2018-06-03 09:02] LABS: Calcium 8.7 mg/dL (8.4-10.2); Potassium 4.9 mmol/L (3.5-5.1)
[2018-06-03 09:22] LABS: HGB 7.3 gm/dL (13.0-17.5)
[2018-06-03] MEDS: POTASSIUM CHLORIDE ER 20 MEQ TAB.ER PO SCH (11:00)
--- NOTE | 2018-06-03 14:30 | P.PN ---
Subjective Patient is seen and examined sitting up in the chair in no acute distress. Past medical history significant for coronary artery disease status post bypass grafting, ischemic cardiomyopathy, paroxysmal atrial fibrillation on long-term anticoagulation currently maintaining sinus mechanism, COPD, recurrent right pleural effusion, status post aortic valve replacement, hypertension and dyslipidemia. Lasix has been discontinued per primary care team due to elevated creatinine. Laboratory data reviewed, WBC 11.7, hemoglobin 7.3, platelets 237, INR 2.2, sodium 134, potassium 4.9, creatinine 1.67. Blood pressure 108/51 heart rate 64 afebrile maintaining oxygen saturation on nasal cannula 3 L. He states he had a bowel movement this morning and his lower abdominal pain has resolved. He denies chest pain, shortness of breath, dizziness or palpitations. Plan is to switch ECF tomorrow per the patient. Objective - Vital Signs Vital signs: Vital Signs Temp 98.2 F 06/03/18 13:00 Pulse 64 06/03/18 13:00 Resp 18 06/03/18 13:00 BP 108/51 06/03/18 13:00 Pulse Ox 98 06/03/18 13:00 Intake & Output 06/02/18 06/03/18 06/03/18 18:59 06:59 18:59 Intake Total 50 100 Balance 50 100 Weight 81.1 kg Intake: Intake, IV Titration 50 100 Amount Piperacillin-Tazobactam 3 50 100 .375 gm In Dextrose/Water 1 50ml.bag @ 12.5 mls/hr IVPB [facility] Rx#: [id number] Other: Voiding Method Urinal Urinal Urinal # Voids 3 3 2 # Bowel Movements 1 - Exam GENERAL: Well-appearing, well-nourished and in no acute distress. NECK: Supple withmild JVD or thyromegaly. LUNGS: Breath sounds clear to auscultation bilaterally. Respiration equal and unlabored. No wheezes, rales or rhonchi. Diminished bilaterally. HEART: Regular rate and rhythm with systolic ejection murmur at the base, no rubs or gallops. S1 and S2 heard. EXTREMITIES: Normal range of motion, bilateral lower extremity 1+ pitting edema. No clubbing or cyanosis. Peripheral pulses intact. - Labs CBC & Chem 7: 06/03/18 08:31 06/03/18 08:31 Labs: Abnormal Lab Results - Last 24 Hours (Table) 06/03/18 06/03/18 06/03/18 Range/Units 08:31 08:31 08:31 WBC 11.7 H (3.8-10.6) k/uL RBC 2.19 L (4.30-5.90) m/uL Hgb 7.3 L D (13.0-17.5) gm/dL Hct 22.0 L (39.0-53.0) % MCV 100.3 H (80.0-100.0) fL Neutrophils # 9.1 H (1.3-7.7) k/uL PT 20.1 H (9.0-12.0) sec INR 2.2 H (<1.2) Sodium 134 L (137-145) mmol/L Chloride 95 L (98-107) mmol/L BUN 48 H (9-20) mg/dL Creatinine 1.67 H (0.66-1.25) mg/dL Microbiology - Last 24 Hours (Table) 06/02/18 21:15 Gram Stain - Final Sputum Sputum Culture - Final 06/02/18 15:11 Urine Culture - Preliminary Urine,Voided 05/28/18 15:25 Blood Culture - Preliminary Blood No Growth after 120 hours Assessment and Plan Assessment: ASSESSMENT Acute on chronic systolic heart failure, EF 45-50% Paroxysmal atrial fibrillation on long-term anticoagulation Supratherapeutic INR, resolved Recurrent right pleural effusion Status post aortic valve replacement Coronary artery disease status post bypass grafting Acute kidney injury PLAN Resume coumadin 5 mg daily. Repeat BMP in the AM. Resume PO lasix tomorrow. Ongoing medical management. Work with physical therapy to build strength. Nurse Practitioner note has been reviewed, I agree with a documented findings and plan of care. Patient was seen and examined.
[2018-06-03] MEDS ORDERED: WARFARIN 5 MG TAB PO SCH (18:00)
[2018-06-03] MEDS: ATORVASTATIN 10 MG TAB PO SCH (20:16)
[2018-06-03] MEDS: traZODone HCL 100 MG TAB PO SCH (20:18)
[2018-06-03] MEDS: ALPRAZolam 0.25 MG TAB PO PRN (20:18)
[2018-06-03 22:24] VITALS: RESP 16
[2018-06-04] MEDS: PIPERACILLIN-TAZOBACTAM 3.375 GM in DEXTROSE/WATER 1 50ML.BAG IVPB SCH ×2 (05:30→11:45)
[2018-06-04] MEDS: HYDROcodone/APAP 5-325MG 1 EACH TAB PO PRN ×2 (05:30→16:21)
--- NOTE | 2018-06-04 07:09 | PN ---
PROGRESS NOTE DATE OF SERVICE: 06/03/2018. REASON FOR FOLLOWUP: Leukocytosis and possible pneumonia. INTERVAL HISTORY: The patient is afebrile. He has continued to complain of some shortness of breath. He did have some cough, but bringing up less sputum. No nausea, no vomiting. No abdominal pain. No diarrhea. Apparently the patient is constipated. PHYSICAL EXAMINATION: On examination, blood pressure is 130/60 with a pulse of 60, temperature 97.3. He is 96% on 2 L nasal cannula. General description is an elderly male up in the chair in no distress. HEENT EXAMINATION: Oral thrush. LUNGS: Unlabored breathing, decreased breath sounds at the bases. No wheeze. HEART: S1, S2. Regular rate and rhythm. ABDOMEN: Soft, no tenderness. LABS: Hemoglobin 7.3, white count 11.7, BUN of 48, creatinine 1.67. Sputum so far negative. Blood culture has been negative. DIAGNOSTIC IMPRESSION AND PLAN: Patient with leukocytosis, concern for possible pneumonia or oropharyngeal candidiasis. Patient is currently covered with Zosyn and nystatin swish and swallow to continue to which his white count has responded. Hopefully waiting for the culture to finalize to antibiotic further if needed. Continue supportive care. MMODL / IJN: [id number] /
[2018-06-04] MEDS: SYMBICORT 160-4.5 MCG INHALER INHALATION SCH (07:16)
[2018-06-04] MEDS: IPRATROPIUM-ALBUTEROL 3 ML NEB INHALATION SCH ×3 (07:16→16:45)
[2018-06-04] MEDS: SUCRALFATE 1 GM TAB PO SCH (08:09)
[2018-06-04] MEDS: POTASSIUM CHLORIDE ER 20 MEQ TAB.ER PO SCH (08:09)
[2018-06-04] MEDS: MULTIVITAMINS, THERA 1 EACH TAB PO SCH (08:10)
[2018-06-04] MEDS: POLYETHYLENE GLYCOL 3350 17 GM POWD.PACK PO SCH (08:10)
[2018-06-04] MEDS: NYSTATIN 100,000 UNIT/ML SUSP 500,000 UNIT/5 ML CUP PO SCH ×2 (08:10→12:15)
[2018-06-04] MEDS: FUROSEMIDE 40 MG TAB PO SCH ×2 (08:10→15:37)
[2018-06-04] MEDS: DOCUSATE 100 MG CAP PO SCH (08:10)
[2018-06-04] MEDS: guaiFENesin 600 MG TABLET.ER PO SCH (08:10)
[2018-06-04] MEDS: CARVEDILOL 12.5 MG TAB PO SCH (08:11)
[2018-06-04] MEDS: PANTOPRAZOLE 40 MG TABLET PO SCH (08:11)
[2018-06-04] MEDS: MORPHINE SULFATE ER 60 MG TABLET PO SCH (08:15)
--- NOTE | 2018-06-04 08:33 | P.PN ---
Subjective Progress Note Date: 06/03/18 Progress Note being dictated for Dr. Nevarez. Interval History: This is an 82-year-old gentleman admitted with acute CHF exacerbation, right recurrent pleural effusion with Pleurx drainage, possible right lower lobe pneumonia and multiple other medical issues. Reports lessening productive cough, tannish-colored sputum. Maintaining O2 sats in the high 90s on 3 L nasal cannula. Denies chest pain, palpitations. Maintained on IV antibiotics of Zosyn, Afebrile, WBC increased to 15.2, sputum, blood cultures currently negative. INR 2.2, hemoglobin 7.3. Positive diet intake, positive bowel movement this morning. Objective - Vital Signs Vital signs: Vital Signs Temp 97.3 F L 06/03/18 06:47 Pulse 66 06/03/18 08:14 Resp 20 06/03/18 06:47 BP 97/61 06/03/18 06:47 Pulse Ox 100 06/03/18 08:03 Intake & Output 06/02/18 06/03/18 06/03/18 18:59 06:59 18:59 Intake Total 50 100 Balance 50 100 Weight 81.1 kg Intake: Intake, IV Titration 50 100 Amount Piperacillin-Tazobactam 3 50 100 .375 gm In Dextrose/Water 1 50ml.bag @ 12.5 mls/hr IVPB Q8H [facility] Rx#: [id number] Other: Voiding Method Urinal Urinal Urinal # Voids 3 3 - Exam PHYSICAL EXAM: VITAL SIGNS: As above GENERAL: Sitting up in bed, no acute distress HEENT: Conjunctivae normal. Oral mucosa moist NECK: No JVD. No thyroid enlargement. No LNs CARDIOVASCULAR: S1, S2 muffled. Regular, systolic murmur RESPIRATION: Breath sounds diminished in the bases. Occasional scattered rhonchi and fine crackles. No wheezing. ABDOMEN: Soft, nontender . No guarding. no masses palpable. Bowel sounds heard. LEGS: No edema. no swelling PSYCHIATRY: Alert and oriented -3, mood and affect normal. NERVOUS SYSTEM: Cranial N 2-12 grossly normal. Moves all 4 limbs. Diffuse weakness No focal deficits. - Labs CBC & Chem 7: 06/03/18 08:31 06/03/18 08:31 Labs: Abnormal Lab Results - Last 24 Hours (Table) 06/02/18 06/03/18 06/03/18 Range/Units 08:18 08:31 08:31 WBC 11.7 H (3.8-10.6) k/uL RBC 2.19 L (4.30-5.90) m/uL Hgb 7.3 L D (13.0-17.5) gm/dL Hct 22.0 L (39.0-53.0) % MCV 100.3 H (80.0-100.0) fL Neutrophils # 9.1 H (1.3-7.7) k/uL PT (9.0-12.0) sec INR (<1.2) Sodium 135 L 134 L (137-145) mmol/L Potassium 5.5 H (3.5-5.1) mmol/L Chloride 96 L 95 L (98-107) mmol/L BUN 39 H 48 H (9-20) mg/dL Creatinine 1.56 H 1.67 H (0.66-1.25) mg/dL Glucose 129 H (74-99) mg/dL 06/03/18 Range/Units 08:31 WBC (3.8-10.6) k/uL RBC (4.30-5.90) m/uL Hgb (13.0-17.5) gm/dL Hct (39.0-53.0) % MCV (80.0-100.0) fL Neutrophils # (1.3-7.7) k/uL PT 20.1 H (9.0-12.0) sec INR 2.2 H (<1.2) Sodium (137-145) mmol/L Potassium (3.5-5.1) mmol/L Chloride (98-107) mmol/L BUN (9-20) mg/dL Creatinine (0.66-1.25) mg/dL Glucose (74-99) mg/dL Microbiology - Last 24 Hours (Table) 06/02/18 21:15 Sputum Culture - Preliminary Sputum 06/02/18 15:11 Urine Culture - Preliminary Urine,Voided 05/28/18 15:25 Blood Culture - Preliminary Blood No Growth after 120 hours Assessment and Plan Assessment: -Acute on chronic exacerbation CHF, diastolic dysfunction -Right recurrent pleural effusion with Pleurx drainage, possible right-sided right lower lobe atelectasis, pneumonia -Paroxysmal atrial fibrillation on Coumadin -gait dysfunction -Generalized weakness -Leukocytosis -COPD -CAD, history of stent, [place], valve replacement Plan: Continue on current medication regime ,monitoring and symptomatic treatment. Creatinine worsening, and Lasix discontinued, EUGENE inhibitor on hold. Maintain antibiotics as per infectious disease. PT/OT. Follow closely with both ID and cardiology. Close monitoring of renal function, electrolytes, hemoglobin,WBC with repeat labs ordered for a.m. maintaining O2 sats in the high 90s on 3 L, continue to wean oxygen. Further recommendations to follow. The impression and plan of care has been dictated as directed. : I performed a history and examination of this patient, discussed the same with the dictator. I agree with the dictator's note ,documented as a scribe. Any additional findings or plans will be noted.
[2018-06-04] MEDS: ALPRAZolam 0.25 MG TAB PO PRN ×2 (08:57→16:20)
[2018-06-04 09:51] LABS: Calcium 8.9 mg/dL (8.4-10.2); Potassium 5.1 mmol/L (3.5-5.1)
[2018-06-04 10:10] LABS: Basophils % (A) 0 %; Eosinophils # (A) 0.3 k/uL (0-0.7); Eosinophils % (A) 3 %; HCT 22.7 % (39.0-53.0); HGB 7.5 gm/dL (13.0-17.5); Hypochromasia Slight; INR 2.7 (<1.2); Lymphocytes # (A) 0.9 k/uL (1.0-4.8); Lymphocytes % (A) 9 %; MCH 33.5 pg (25.0-35.0); MCHC 32.9 g/dL (31.0-37.0); MCV 101.7 fL (80.0-100.0); Macrocytosis Slight; Mean Platelet Volume 6.8; Monocytes # (A) 0.6 k/uL (0-1.0); Monocytes % (A) 6 %; Neutrophils # (A) 8.1 k/uL (1.3-7.7); Neutrophils % (A) 80 %; Platelet Count 231 k/uL (150-450); Prothrombin Time 24.4 sec (9.0-12.0); RBC 2.23 m/uL (4.30-5.90); RDW 14.1 % (11.5-15.5); WBC 10.1 k/uL (3.8-10.6)
[2018-06-04] MEDS: CLOTRIMAZOLE 1% CREAM 15 GM TUBE TOPICAL SCH (11:45)
[2018-06-04 12:27] VITALS: BP 141/63; PULSE 61; TEMP 98.5
--- NOTE | 2018-06-04 14:38 | CDI ---
Last Revision, July 2017 Documentation Clarification Form Date: 06/04/2018 2:31:14 PM From: Bev Hill RN, CCDS Admit Date: 06/02/2018 3:46:00 PM Patient Name: Felton Mckee Visit Number: [id number] ATTENTION: The Clinical Documentation Specialists (CDI) and [facility] Coding Staff appreciate your assistance in clarifying documentation. Please respond to the clarification below the line at the bottom and electronically sign. The CDI & [facility] Coding staff will review the response and follow-up if needed. Please note: Queries are made part of the Legal Health Record. If you have any questions, please contact the author of this message via ITS. Drew Jones MD A diagnosis of anemia lacks specificity to accurately reflect your patients severity of condition and clarification is needed. History/Risk Factors: A-Fib, A/C diastolic CHF, GERD, HTN, hyperlipidemia, Clinical indicators: Anemia is documented in the H&P, Progress notes, and Consults. Hemoglobin: 8.3/8.9/7.3/7.5 Hematocrit: 25.3/27.4/22/22.7 Treatment: Lab monitoring Coumadin Po QD In order to capture the severity of condition, please clarify the type of anemia and etiology if known: Acute blood loss anemia Acute on chronic blood loss anemia Chronic blood loss anemia Iron deficiency anemia Drug induced anemia Nutritional anemia Anemia of chronic disease Unable to determine Other, please specify Please continue to document in your progress notes and discharge summary in order to capture severity of illness and risk of mortality. Include clinical findings that support your diagnosis. anemia, of possible chronic disease MTDD
--- NOTE | 2018-06-04 15:25 | P.DS ---
Providers Date of admission: 06/02/18 15:46 Expected date of discharge: 06/04/18 Attending physician: Drew Nevarez Consults: 05/28/18 15:56 Consult Physician Routine Consulting Provider: Dima Cristina Consult Reason/Comments: CHF exacerbation] Do you want consulting provider notified?: Yes 05/28/18 17:51 Consult Physician Routine Consulting Provider: Drew Nevarez Consult Reason/Comments: attending Do you want consulting provider notified?: Already Contacted 06/02/18 10:33 Consult Physician Routine Consulting Provider: Anupama Zamudio Consult Reason/Comments: high wbc pneumonia?? Do you want consulting provider notified?: Yes Primary care physician: Adolfo Lieberman, Hospital Course: Final Diagnoses: -Acute on chronic exacerbation CHF, diastolic dysfunction -Right recurrent pleural effusion with Pleurx drainage, possible right-sided right lower lobe atelectasis, pneumonia -Paroxysmal atrial fibrillation on Coumadin -gait dysfunction -Generalized weakness -Leukocytosis -COPD -CAD, history of stent, DE, valve replacement Hospital course:This is an 82-year-old gentleman admitted with acute CHF exacerbation, right recurrent pleural effusion with Pleurx drainage, possible right lower lobe pneumonia and multiple other medical issues. Reports lessening productive cough, tannish-colored sputum. Maintaining O2 sats in the high 90s on 3 L nasal cannula. Denies chest pain, palpitations. Maintained on IV antibiotics of Zosyn, Afebrile, WBC increased to 15.2, sputum, blood cultures currently negative. INR 2.2, hemoglobin 7.3. Positive diet intake, positive bowel movement this morning. Evaluated by cardiology, pulmonary and infectious disease .Significant clinical improvement. Cleared by all consults for discharge. Patient is being discharged to [facility] in stable condition with guarded prognosis. EXAM: GENERAL: Sitting up in bed, no acute distress CARDIOVASCULAR: S1, S2 muffled. Regular, systolic murmur RESPIRATION: Breath sounds diminished in the bases. Occasional scattered rhonchi and fine crackles. No wheezing. ABDOMEN: Soft, nontender . No guarding. no masses palpable. Bowel sounds heard. PSYCHIATRY: Alert and oriented -3, mood and affect normal. NERVOUS SYSTEM: Cranial N 2-12 grossly normal. Moves all 4 limbs. Diffuse weakness No focal deficits. The impression and plan of care has been dictated as directed. : I performed a history and examination of this patient, discussed the same with the dictator. I agree with the dictator's note ,documented as a scribe. Any additional findings or plans will be noted. Time taken: 35 minutes Patient Condition at Discharge: Stable Plan - Discharge Summary Discharge Rx Participant: Yes New Discharge Prescriptions: New Acetaminophen Tab [Tylenol] 500 mg PO Q6HR PRN tab PRN Reason: Fever and/ or Mild Pain Carvedilol [Coreg*] 12.5 mg PO BID-W/MEALS tab Ipratropium-Albuterol Nebulize [Duoneb 0.5 mg-3 mg/3 ml Soln] 3 ml INHALATION RT-QID ampul.neb Ipratropium-Albuterol Nebulize [Duoneb 0.5 mg-3 mg/3 ml Soln] 3 ml INHALATION Q4H PRN ampul.neb PRN Reason: Shortness Of Breath Or Wheezing Nystatin 100,000 Unit/ml Susp [Mycostatin Oral Susp] 500,000 unit PO QID cup Warfarin [Coumadin] 5 mg PO DAILY@1800 tab Continue Ubidecarenone [Co Q-10] 200 mg PO DAILY Lovastatin [Mevacor] 20 mg PO HS traZODone HCL 100 mg PO HS Polyethylene Glycol 3350 [Miralax] 17 gm PO DAILY powd.pack Promethazine HCl 12.5 mg PO BID PRN PRN Reason: Nausea Multivitamins, Thera [Multivitamin (formulary)] 1 tab PO DAILY Pantoprazole [Protonix] 40 mg PO DAILY Sucralfate [Carafate] 1 gm PO BID Docusate [Colace] 100 mg PO BID cap Budesonide-Formot 160-4.5 Mcg [Symbicort 160-4.5 Mcg Inhaler] 2 puff INHALATION RT-BID Clotrimazole Cream [Lotrimin Cream] 1 applic TOPICAL BID #1 each Fluconazole [Diflucan] 100 mg PO DAILY #7 tab guaiFENesin [Mucinex] 600 mg PO BID #14 tab.er.12h LORazepam [Ativan] 0.5 mg PO QID PRN #12 tablet PRN Reason: Anxiety Morphine Sulfate [Ms Contin] 60 mg PO Q12HR #6 tablet.er oxyCODONE HCL 15 mg PO BID PRN #6 tablet PRN Reason: Pain Discontinued Carvedilol 25 mg PO DAILY Warfarin [Coumadin] 5 mg PO HS Furosemide [Lasix] 40 mg PO BID #60 tablet Lisinopril [Zestril] 2.5 mg PO DAILY Ipratropium-Albuterol Nebulize [Duoneb 0.5 mg-3 mg/3 ml Soln] 3 ml INHALATION RT-QID Potassium Chloride ER [K-Dur 20] 20 meq PO DAILY #30 tab.er.prt Discharge Medication List Ubidecarenone [Co Q-10] 200 mg PO DAILY 07/28/16 [History] Lovastatin [Mevacor] 20 mg PO HS 11/20/17 [History] traZODone HCL 100 mg PO HS 11/20/17 [History] Polyethylene Glycol 3350 [Miralax] 17 gm PO DAILY powd.pack 02/07/18 [Rx] Promethazine HCl 12.5 mg PO BID PRN 03/10/18 [History] Multivitamins, Thera [Multivitamin (formulary)] 1 tab PO DAILY 04/01/18 [History ] Pantoprazole [Protonix] 40 mg PO DAILY 04/01/18 [History] Sucralfate [Carafate] 1 gm PO BID 04/01/18 [History] Docusate [Colace] 100 mg PO BID cap 04/05/18 [Rx] Budesonide-Formot 160-4.5 Mcg [Symbicort 160-4.5 Mcg Inhaler] 2 puff INHALATION RT-BID 04/10/18 [History] Clotrimazole Cream [Lotrimin Cream] 1 applic TOPICAL BID #1 each 05/25/18 [Rx] Fluconazole [Diflucan] 100 mg PO DAILY #7 tab 05/25/18 [Rx] guaiFENesin [Mucinex] 600 mg PO BID #14 tab.er.12h 05/27/18 [Rx] Acetaminophen Tab [Tylenol] 500 mg PO Q6HR PRN tab 06/04/18 [Rx] Carvedilol [Coreg*] 12.5 mg PO BID-W/MEALS tab 06/04/18 [Rx] Ipratropium-Albuterol Nebulize [Duoneb 0.5 mg-3 mg/3 ml Soln] 3 ml INHALATION Q4H PRN ampul.neb 06/04/18 [Rx] Ipratropium-Albuterol Nebulize [Duoneb 0.5 mg-3 mg/3 ml Soln] 3 ml INHALATION RT -QID ampul.neb 06/04/18 [Rx] LORazepam [Ativan] 0.5 mg PO QID PRN #12 tablet 06/04/18 [Rx] Morphine Sulfate [Ms Contin] 60 mg PO Q12HR #6 tablet.er 06/04/18 [Rx] Nystatin 100,000 Unit/ml Susp [Mycostatin Oral Susp] 500,000 unit PO QID cup [Rx] Warfarin [Coumadin] 5 mg PO DAILY@1800 tab 06/04/18 [Rx] oxyCODONE HCL 15 mg PO BID PRN #6 tablet 06/04/18 [Rx] Follow up Appointment(s)/Referral(s): Adolfo Lieberman DO [Primary Care Provider] - 3 Days Ravi Goetz MD [STAFF PHYSICIAN] - 2 Weeks Activity/Diet/Wound Care/Special Instructions: [facility] antibiotics as per ID Lasix 40 mg po prn congestion . Use Incentive Spirometer 10x hourly while awake PT/INR daily cbc,bmp in 3 days Discharge Disposition: TRANSFER TO SNF/ECF
--- NOTE | 2018-06-04 19:12 | PN ---
PROGRESS NOTE DATE OF SERVICE: 06/04/2018. REASON FOR FOLLOWUP: Leukocytosis, question of possible pneumonia versus a thrush. INTERVAL HISTORY: The patient is afebrile. The patient continues complaining of feeling weak and tired and could not do anything. He did have some shortness of breath. No chest pain. No abdominal pain or any diarrhea. EXAMINATION: Blood pressure 141/53 with a pulse of 71, temperature 98.5. He is 96% on 2 L nasal cannula. General description is an elderly male up in the chair in no distress. RESPIRATORY SYSTEM: Unlabored breathing with decreased breath sounds in the bases. No wheeze. HEART: S1, S2. Regular rate and rhythm. ABDOMEN: Soft, no tenderness. LABS: Hemoglobin 7.5, white count normalized to 10.1, BUN of 52, creatinine 1.61. His cultures remain to be negative. DIAGNOSTIC IMPRESSION AND PLAN: Patient with elevated white count with concern for possible pneumonia. The patient did have accompanying of some acrd sputum. Sputum has been negative for resistant pathogen so far. His white count did improve with Zosyn along with nystatin swish and swallow, will give a short course of oral Avelox for 3-4 days and close outpatient followup. Continue with nystatin swish and swallow for about a week. MMODL / IJN: [id number] /
--- NOTE | 2018-06-07 11:22 | CDI ---
Last Revision, July 2017 Documentation Clarification Form Date: 06/07/18 From: Sabrina Wang Phone: If you have a question regarding this query, please contact Brittani Torres at [phone] Admit Date: 06/02/2018 3:46:00 PM Patient Name: Felton Mckee Visit Number: [id number] Discharge Date: 06/04/18 ATTENTION: The Clinical Documentation Specialists (CDI) and [facility] Coding Staff appreciate your assistance in clarifying documentation. Please respond to the clarification below the line at the bottom and electronically sign. The CDI & [facility] Coding staff will review the response and follow-up if needed. Please note: Queries are made part of the Legal Health Record. If you have any questions, please contact the author of this message via ITS. Drew Jones MD Conflicting documentation has been found in the medical record. Patient was admitted for acute exacerbation of congestive heart failure. In your documentation, you state acute on chronic diastolic CHF. In Dr. Goetz's consult note, diastolic heart failure is documented. Dr. Vaca and Dr. Solis both document systolic heart failure in their progress notes. History/Risk Factors: Patient has a history of chronic heart failure. Patient also has a history of hypertension, CAD, CABG and atrial fibrillation. Clinical Indicators: Shortness of breath, leg edema, jugular venous distention , diminished breath sounds BNP: 4880 ECHO: Not done on this admission. No ejection fraction documented. Treatment: IV Lasix 40 mg Q 12 In your opinion please clarify the type of CHF if known: Systolic Diastolic Combined Systolic and Diastolic Other explanation of clinical findings Unable to determine (no explanation for clinical findings) MTDD
== END 2018-06-04 16:30 | DRG 291 ==
LOC: EC 12:48 → 5MS5E 15:59 → 5ONC 17:09 → 5MS5E 05-29 14:51 → OBSVTOIN 06-02 15:46
PROVIDERS: ADMIT Hospitalist; ATTEND Hospitalist
DX: I11.0 Hypertensive heart disease with heart failure (principal); J18.9 Pneumonia, unspecified organism; J44.0 Chronic obstructive pulmonary disease with (acute) lower respiratory infection; J96.11 Chronic respiratory failure with hypoxia; J98.11 Atelectasis; N17.9 Acute kidney failure, unspecified; E87.1 Hypo-osmolality and hyponatremia; B37.0 Candidal stomatitis; B37.89 Other sites of candidiasis; J90 Pleural effusion, not elsewhere classified; I50.33 Acute on chronic diastolic (congestive) heart failure; I27.20 Pulmonary hypertension, unspecified; I25.5 Ischemic cardiomyopathy; I48.2 Chronic atrial fibrillation; D63.8 Anemia in other chronic diseases classified elsewhere; K21.9 Gastro-esophageal reflux disease without esophagitis; K59.00 Constipation, unspecified; L30.9 Dermatitis, unspecified; N40.0 Benign prostatic hyperplasia without lower urinary tract symptoms; R79.1 Abnormal coagulation profile; R26.9 Unspecified abnormalities of gait and mobility; M79.672 Pain in left foot; M79.671 Pain in right foot; I25.10 Atherosclerotic heart disease of native coronary artery without angina pectoris; D72.829 Elevated white blood cell count, unspecified; E78.5 Hyperlipidemia, unspecified; F32.9 Major depressive disorder, single episode, unspecified; F41.9 Anxiety disorder, unspecified; I25.2 Old myocardial infarction; Z79.01 Long term (current) use of anticoagulants; Z79.51 Long term (current) use of inhaled steroids; Z79.899 Other long term (current) drug therapy; Z99.81 Dependence on supplemental oxygen; Z95.5 Presence of coronary angioplasty implant and graft; Z95.2 Presence of prosthetic heart valve; Z95.1 Presence of aortocoronary bypass graft; Z95.0 Presence of cardiac pacemaker; Z90.49 Acquired absence of other specified parts of digestive tract; Z87.891 Personal history of nicotine dependence; Z86.718 Personal history of other venous thrombosis and embolism; Z85.46 Personal history of malignant neoplasm of prostate; Z87.01 Personal history of pneumonia (recurrent); Z98.42 Cataract extraction status, left eye; Z98.41 Cataract extraction status, right eye; Z96.1 Presence of intraocular lens; Z80.42 Family history of malignant neoplasm of prostate; Z82.49 Family history of ischemic heart disease and other diseases of the circulatory system
CPT/HCPCS: 36415; 71045; 71250; 74176; 80048; 80053; 81003; 83880; 84484; 85025; 85610; 87040; 87070; 87086; 87205; 94640; 94760; 96365; 96367; 96375; 99285